=== PATIENT | female | born 1985 | race Caucasian/White ===

== ENCOUNTER 2016-12-05 23:37 | Inpatient (IN) | payer BC, OTHER ==
[2016-12-05] MEDS ORDERED: SODIUM CHLORIDE 0.9% 500 ML IV STA (23:53)
[2016-12-06] MEDS ORDERED: DILTIAZEM 5 MG/ML 5 ML VIAL IVP STA ×2 (00:06→01:11)
--- NOTE | 2016-12-06 00:06 | ED ---
General Adult HPI - General Chief complaint: Arrhythmia/Palpitations Stated complaint: heart fluttering Time Seen by Provider: 12/05/16 23:52 Source: patient, EMS, RN notes reviewed, old records reviewed Mode of arrival: EMS Limitations: no limitations - History of Present Illness Initial comments: This is a 31-year-old female palpitations. Patient feeling very anxious physical heart racing feels that she can't take a breath. Patient's very emotional, has history of transposition of arteries, history of A. fib. Patient denies fevers cough or congestion, she did feel nauseous and did vomit at work. Patient denies drugs or alcohol. Patient very emotional during history taking - Related Data Home Medications Medication Instructions Recorded Confirmed Carvedilol [Coreg] 3.125 mg PO BID 12/05/16 12/06/16 Omeprazole 20 mg PO DAILY 12/05/16 12/06/16 Allergies Allergy/AdvReac Type Severity Reaction Status Date / Time No Known Allergies Allergy Verified 12/05/16 23:53 Review of Systems ROS Statement: Those systems with pertinent positive or pertinent negative responses have been documented in the HPI. ROS Other: All systems not noted in ROS Statement are negative. Past Medical History Past Medical History: Atrial Fibrillation, Heart Failure Additional Past Medical History / Comment(s): pt had transposition of great arteries as an History of Any Multi-Drug Resistant Organisms: None Reported Additional Past Surgical History / Comment(s): open heart surg for transposition of great arteries, CARDIOVERTED FOR A- FIB Past Psychological History: No Psychological Hx Reported Smoking Status: Former smoker Past Alcohol Use History: Occasional Past Drug Use History: None Reported General Exam Limitations: no limitations General appearance: alert, in no apparent distress, anxious Head exam: Present: atraumatic, normocephalic, normal inspection Eye exam: Present: normal appearance, PERRL, EOMI. Absent: scleral icterus, conjunctival injection, periorbital swelling ENT exam: Present: normal exam, mucous membranes moist Neck exam: Present: normal inspection. Absent: tenderness, meningismus, lymphadenopathy Respiratory exam: Present: normal lung sounds bilaterally. Absent: respiratory distress, wheezes, rales, rhonchi, stridor Cardiovascular Exam: Present: normal rhythm, tachycardia, normal heart sounds. Absent: systolic murmur, diastolic murmur, rubs, gallop, clicks GI/Abdominal exam: Present: soft, normal bowel sounds. Absent: distended, tenderness, guarding, rebound, rigid Extremities exam: Present: normal inspection, full ROM, normal capillary refill. Absent: tenderness, pedal edema, joint swelling, calf tenderness Back exam: Present: normal inspection Neurological exam: Present: alert, oriented X3, CN II-XII intact Psychiatric exam: Present: normal affect, normal mood Skin exam: Present: warm, dry, intact, normal color. Absent: rash Course Vital Signs 12/05/16 23:51 Temperature 97.8 F Pulse Rate 149 H Respiratory 20 Rate Blood Pressure 119/74 O2 Sat by Pulse 96 Oximetry - Reevaluation(s) Reevaluation #1: 12/06/16 01:18 Patient she denies being in everyday drinker Reevaluation #2: 12/06/16 01:19 Patient's R is mildly improved with Cardizem, will admit for cardiology evaluation EKG Findings - EKG Comments: EKG Findings:: EKG shows sinus tachycardia rate 149, DC 114, QRS 1:30, QTC 463 Medical Decision Making - Medical Decision Making 29. ER for evaluation of heart racing, palpitations, patient's A. fib with RVR , alcoholic ketoacidosis, hypomagnesemia, patient will be admitted for rate control, patient also has elevated troponin will admit for cardiac evaluation and trending of troponin. No chest pain, no heparin at this time - Lab Data Result diagrams: 12/05/16 23:55 12/05/16 23:55 Lab Results 12/05/16 12/05/16 12/05/16 Range/Units 23:55 23:55 23:55 WBC 7.2 (3.8-10.6) k/uL RBC 4.95 (3.80-5.40) m/uL Hgb 16.0 (11.4-16.0) gm/dL Hct 49.8 H (34.0-46.0) % MCV 100.6 H (80.0-100.0) fL MCH 32.3 (25.0-35.0) pg MCHC 32.1 (31.0-37.0) g/dL RDW 14.4 (11.5-15.5) % Plt Count 286 (150-450) k/uL PT (9.0-12.0) sec INR (<1.1) APTT (22.0-30.0) sec Sodium 137 (137-145) mmol/L Potassium 3.9 (3.5-5.1) mmol/L Chloride 92 L (98-107) mmol/L Carbon Dioxide 22 (22-30) mmol/L Anion Gap 23 mmol/L BUN 10 (7-17) mg/dL Creatinine 0.80 (0.52-1.04) mg/dL Est GFR (MDRD) Af Amer >60 (>60 ml/min/1.73 sqM) Est GFR (MDRD) Non-Af >60 (>60 ml/min/1.73 sqM) Glucose 79 (74-99) mg/dL Calcium 10.0 (8.4-10.2) mg/dL Phosphorus 4.5 (2.5-4.5) mg/dL Magnesium 1.3 L (1.6-2.3) mg/dL Total Bilirubin 5.5 H (0.2-1.3) mg/dL AST 438 H (14-36) U/L ALT 185 H (9-52) U/L Alkaline Phosphatase 189 H (38-126) U/L Total Creatine Kinase 47 (30-135) U/L CK-MB (CK-2) 2.3 (0.0-2.4) ng/mL CK-MB (CK-2) Rel Index 4.9 Troponin I 0.049 H* (0.000-0.034) ng/mL Total Protein 8.0 (6.3-8.2) g/dL Albumin 4.8 (3.5-5.0) g/dL Serum Alcohol mg/dL 12/05/16 12/06/16 Range/Units 23:55 00:30 WBC (3.8-10.6) k/uL RBC (3.80-5.40) m/uL Hgb (11.4-16.0) gm/dL Hct (34.0-46.0) % MCV (80.0-100.0) fL MCH (25.0-35.0) pg MCHC (31.0-37.0) g/dL RDW (11.5-15.5) % Plt Count (150-450) k/uL PT 14.4 H (9.0-12.0) sec INR 1.5 (<1.1) APTT 25.6 (22.0-30.0) sec Sodium (137-145) mmol/L Potassium (3.5-5.1) mmol/L Chloride (98-107) mmol/L Carbon Dioxide (22-30) mmol/L Anion Gap mmol/L BUN (7-17) mg/dL Creatinine (0.52-1.04) mg/dL Est GFR (MDRD) Af Amer (>60 ml/min/1.73 sqM) Est GFR (MDRD) Non-Af (>60 ml/min/1.73 sqM) Glucose (74-99) mg/dL Calcium (8.4-10.2) mg/dL Phosphorus (2.5-4.5) mg/dL Magnesium (1.6-2.3) mg/dL Total Bilirubin (0.2-1.3) mg/dL AST (14-36) U/L ALT (9-52) U/L Alkaline Phosphatase (38-126) U/L Total Creatine Kinase (30-135) U/L CK-MB (CK-2) (0.0-2.4) ng/mL CK-MB (CK-2) Rel Index Troponin I (0.000-0.034) ng/mL Total Protein (6.3-8.2) g/dL Albumin (3.5-5.0) g/dL Serum Alcohol 112 mg/dL Critical Care Time Critical Care Time: Yes Total Critical Care Time: 31 Disposition Clinical Impression: Atrial fibrillation, Tachycardia, Palpitations, Alcoholic ketoacidosis, Dehydration, Alcohol intoxication, Hypomagnesemia Disposition: ADMITTED IP TO THIS [facility] Condition: Fair Referrals: Jocy Matute DO [Primary Care Provider] - 1-2 days
[2016-12-06] MEDS ORDERED: LORazepam 2 MG/ML SYRINGE IV STA (00:08)
[2016-12-06 00:33] LABS: ALT 185 U/L (9-52); AST 438 U/L (14-36); Alkaline Phosphatase 189 U/L (38-126); Anion Gap 23 mmol/L; Blood Urea Nitrogen 10 mg/dL (7-17); Carbon Dioxide 22 mmol/L (22-30); Chloride 92 mmol/L (98-107); Glucose 79 mg/dL (74-99); Magnesium 1.3 mg/dL (1.6-2.3); Non-African American GFR(MDRD) >60 (>60 ml/min/1.73 sqM); Phosphorous 4.5 mg/dL (2.5-4.5); Potassium 3.9 mmol/L (3.5-5.1); Sodium 137 mmol/L (137-145); Total Bilirubin 5.5 mg/dL (0.2-1.3)
[2016-12-06 00:34] LABS: INR 1.5 (<1.1); Partial Thromboplastin Time 25.6 sec (22.0-30.0); Prothrombin Time 14.4 sec (9.0-12.0)
[2016-12-06 00:50] LABS: Aty Lym Flag Slight; CH 33.5; CHCM 33.4; HCT 49.8 % (34.0-46.0); HDW 2.31; MCH 32.3 pg (25.0-35.0); MCHC 32.1 g/dL (31.0-37.0); MCV 100.6 fL (80.0-100.0); Macrocytosis Slight; RBC 4.95 m/uL (3.80-5.40); RDW 14.4 % (11.5-15.5); WBC 7.2 k/uL (3.8-10.6)
[2016-12-06 00:52] LABS: Creatine Kinase MB 2.3 ng/mL (0.0-2.4)
[2016-12-06 01:04] LABS: Troponin I 0.049 ng/mL (0.000-0.034)
[2016-12-06] MEDS ORDERED: SODIUM CHLORIDE 0.9% 2,000 ML IV STA (01:05)
[2016-12-06] MEDS ORDERED: SODIUM CHLORIDE 0.9% 500 ML IV STA (01:05)
[2016-12-06] MEDS ORDERED: SODIUM CHLORIDE 0.9% 1,000 ML IV STA (01:05)
[2016-12-06] MEDS ORDERED: POTASSIUM BICARB-CITRIC ACID 25 MEQ TABLET.EFF PO STA (01:06)
[2016-12-06] MEDS ORDERED: DILTIAZEM 125 MG in SODIUM CHLORIDE 0.9% 100 ML IV ONE (01:11)
[2016-12-06] MEDS ORDERED: ASPIRIN 81 MG CHEW PO STA (01:16)
[2016-12-06] MEDS ORDERED: MORPHINE SULFATE 4 MG/ML SYRINGE IV PRN (01:16)
[2016-12-06] MEDS ORDERED: LORazepam 2 MG/ML SYRINGE IV PRN ×2 (01:18)
[2016-12-06] MEDS ORDERED: THIAMINE 100 MG/ML 2 ML VIAL IM STA (01:18)
[2016-12-06] MEDS ORDERED: SODIUM CHLORIDE 0.9% 1,000 ML IV SCH (01:30)
[2016-12-06 01:35] LABS: Add Differential Manual Differential
[2016-12-06] MEDS: MAGNESIUM SULFATE-D5W PMX 1 GM in DEXTROSE/WATER 1 100ML.BAG IVPB SCH ×4 (01:36→05:50)
[2016-12-06 01:38] LABS: Nucleated Red Blood Cells 0 /100 WBC (0-0); Total Cells Counted 100
[2016-12-06 01:39] LABS: Large Platelets Present
[2016-12-06 01:40] LABS: Manual Review Performed
[2016-12-06] MEDS: LORazepam 2 MG/ML SYRINGE IV PRN ×7 (03:03→21:49)
[2016-12-06 03:27] LABS: Acetaminophen <10.0 ug/mL; Salicylate <1.0 mg/dL
[2016-12-06 04:23] VITALS: BMI 20.9
[2016-12-06 07:03] LABS: Creatine Kinase MB 1.8 ng/mL (0.0-2.4)
[2016-12-06] MEDS: guaiFENesin 600 MG TABLET.ER PO SCH ×2 (07:07→21:37)
[2016-12-06] MEDS: LORATADINE 10 MG TAB PO SCH (07:08)
[2016-12-06 07:09] LABS: Troponin I 0.058 ng/mL (0.000-0.034)
--- NOTE | 2016-12-06 09:07 | P.CRDCN ---
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 Patient states that she has noticed these palpitations for the past couple of days. She has a known history of atrial fibrillation with prior cardioversion, she used to follow here with Dr. Colón in the office, she now follows with a congenital property management specialist at [facility]. 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 On presentation here EKG showed atrial fibrillation with a rapid ventricular response, right bundle branch block pattern. There was no chest x-ray performed. CBC normal. Potassium 3.9, BUN 10, creatinine 0.8. Lactic acid 3.4, 2.3 this morning. Magnesium level on admission 1.3, 2.7 this morning. Total bilirubin 5.5, AST 438, ALT 185, alk phos 189. Troponins 0.049, 0.058. TSH level 4.6. Serum alcohol 112. Blood pressure 110/70, heart rate in the 1 teens. Patient is currently on IV Cardizem at 5 mg per hour. She also received magnesium replacement as well as IV fluid. She denies any palpitations this morning. Past Medical History Past Medical History: Atrial Fibrillation, Heart Failure Additional Past Medical History / Comment(s): pt had transposition of great arteries as an History of Any Multi-Drug Resistant Organisms: None Reported Additional Past Surgical History / Comment(s): open heart surg for transposition of great arteries, CARDIOVERTED FOR A- FIB Past Psychological History: No Psychological Hx Reported Smoking Status: Former smoker Past Alcohol Use History: Occasional Past Drug Use History: None Reported - Past Family History Mother Family Medical History: No Reported History Father Family Medical History: No Reported History Medications and Allergies Home Medications Medication Instructions Recorded Confirmed Type Carvedilol [Coreg] 1.56 mg PO BID 12/05/16 12/06/16 History Omeprazole 20 mg PO DAILY 12/05/16 12/06/16 History Escitalopram [Lexapro] 5 mg PO DAILY 12/06/16 12/06/16 History Allergies Allergy/AdvReac Type Severity Reaction Status Date / Time No Known Allergies Allergy Verified 12/06/16 11:45 Physical Exam Vitals: Vital Signs Temp Pulse Pulse Resp BP BP Pulse Ox 12/06/16 05:24 111 H 18 110/78 100 12/06/16 03:52 97.5 F L 112 H 18 112/76 96 Intake and Output 12/05/16 12/06/16 12/06/16 21:59 06:59 14:59 Intake Total Balance Intake: Intake, IV Titration Amount Magnesium Sulfate-D5w Pmx 1 gm In Dextrose/Water 1 100ml.bag @ 100 mls/hr IVPB Q1H MICHAEL Rx#: [id number] Sodium Chloride 0.9% 1, 000 ml @ 100 mls/hr IV . Q10H MICHAEL Rx#:[id number] Sodium Chloride 0.9% 500 ml @ 999 mls/hr IV .Q31M STA Rx#:[id number] Other: # Voids Weight PHYSICAL EXAMINATION: HEENT: Head is atraumatic, normocephalic. Pupils equal, round. Neck is supple. There is elevated jugular venous pressure. HEART EXAMINATION: Heart S1 and S2 irregular irregular CHEST EXAMINATION: Lungs reveal decreased air exchange with expiratory wheezing and conchis rales ABDOMEN: Soft, liver is enlarged 3 fingers below costal margin, nontender. Bowel sounds are heard. EXTREMITIES: 2+ peripheral pulses with no evidence of peripheral edema and no calf tenderness noted. NEUROLOGIC patient is awake, alert and oriented -3. . Results 12/05/16 23:55 12/05/16 23:55 Cardiac Enzymes 12/06/16 Range/Units 06:00 CK-MB (CK-2) 1.8 (0.0-2.4) ng/mL Troponin I 0.058 H* (0.000-0.034) ng/mL Current Medications Generic Name Dose Route Start Last Admin Trade Name Freq PRN Reason Stop Dose Admin Aspirin 325 mg 12/07/16 09:00 Aspirin PO DAILY MICHAEL Guaifenesin 600 mg 12/06/16 09:00 12/06/16 07:07 Mucinex PO 600 mg Q12HR MICHAEL Administration Sodium Chloride 1,000 mls @ 100 mls/hr 12/06/16 01:05 12/06/16 04:46 Saline 0.9% IV 12/06/16 11:04 Not Given .Q10H STA Diltiazem HCl 125 mg/ Sodium 125 mls @ 5 mls/hr 12/06/16 01:11 12/06/16 01:49 Chloride IV 12/07/16 01:10 5 mg/hr .Q24H ONE 5 mls/hr 5 MG/HR Administration Sodium Chloride 1,000 mls @ 100 mls/hr 12/06/16 01:30 12/06/16 05:50 Saline 0.9% IV 100 mls/hr .Q10H MICHAEL Administration Loratadine 10 mg 12/06/16 09:00 12/06/16 07:08 Claritin PO 10 mg DAILY MICHAEL Administration Lorazepam 1 mg 12/06/16 01:18 12/06/16 07:30 Ativan IV 1 mg Q2HR PRN Administration CIWA 8 or 9 Lorazepam 1 mg 12/06/16 01:18 Ativan IV Q1HR PRN CIWA 10 to 15 Lorazepam 2 mg 12/06/16 01:18 Ativan IV Q1HR PRN CIWA 16 or higher Morphine Sulfate 4 mg 12/06/16 01:16 Morphine Sulfate (Inj) IV Q4HR PRN Chest Pain Thiamine HCl 100 mg 12/06/16 17:00 Vitamin B-1 PO BID@1200,1700 MICHAEL Intake and Output 12/05/16 12/06/16 12/06/16 21:59 06:59 14:59 Intake Total Balance Intake: Intake, IV Titration Amount Magnesium Sulfate-D5w Pmx 1 gm In Dextrose/Water 1 100ml.bag @ 100 mls/hr IVPB Q1H MICHAEL Rx#: [id number] Sodium Chloride 0.9% 1, 000 ml @ 100 mls/hr IV . Q10H MICHAEL Rx#:[id number] Sodium Chloride 0.9% 500 ml @ 999 mls/hr IV .Q31M STA Rx#:[id number] Other: # Voids Weight EKG Interpretations (text) EKG shows atrial fibrillation with a rapid ventricular response and right bundle branch block pattern. Assessment and Plan Plan: Assessment and plan #1 atrial fibrillation with rapid ventricular response, paroxysmal. Patient currently on IV Cardizem. 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 #7 abnormal troponins, not consistent with acute coronary syndrome, could be secondary to oxygen supply and demand mismatch from A. fib with rapid rate. #8 possible congestive cardiac failure. Plan We will attempt to receive records from [facility], we will also order an echocardiogram with Doppler study. Decrease IV fluids to KVO. Obtain a BNP level stat Obtain chest x-ray. Obtain third troponin value. Discontinue IV Cardizem and reinitiate beta carina. Further recommendations to follow. DNP note has been reviewed, I agree with a documented findings and plan of care. Patient was seen and examined.
--- NOTE | 2016-12-06 09:37 | XR ---
EXAMINATION TYPE: XR chest 2V DATE OF EXAM: 12/06/2016 9:25 AM COMPARISON: 08/20/2016 HISTORY: Shortness of breath FINDINGS: 2 views of the chest submitted. There are bilateral pleural effusions with cardiomegaly and bibasilar infiltrate. There is a diffuse interstitial pattern. IMPRESSION: 1. Correlate for CHF.
[2016-12-06] MEDS: METOPROLOL TARTRATE 25 MG TAB PO SCH ×2 (10:21→21:41)
[2016-12-06] MEDS ORDERED: ONDANSETRON 4 MG/2 ML VIAL IVP PRN (10:50)
--- NOTE | 2016-12-06 11:11 | P.HPIM ---
History of Present Illness H&P Date: 12/06/16 Chief Complaint: Heart palpitations A 31-year-old female presented to the emergency room with a chief complaint of feeling anxious heart palpitations could feel her heart racing could not take a breath. 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 Patient has a history of transposition of the arteries and follows a congenital heart specialists at the [facility]. Patient states she is scheduled to be seen in December and a follow-up visit. Has a history of atrial fibrillation with prior cardioversion. In the emergency room the 12- lead EKG showed atrial fibrillation with a rapid ventricular response of the right bundle branch block pattern. 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 History of Any Multi-Drug Resistant Organisms: None Reported Additional Past Surgical History / Comment(s): open heart surg for transposition of great arteries, CARDIOVERTED FOR A- FIB Past Psychological History: No Psychological Hx Reported Smoking Status: Former smoker Past Alcohol Use History: Occasional Past Drug Use History: None Reported - Past Family History Mother Family Medical History: No Reported History Father Family Medical History: No Reported History Medications and Allergies Home Medications Medication Instructions Recorded Confirmed Type Carvedilol [Coreg] 3.125 mg PO BID 12/05/16 12/06/16 History Omeprazole 20 mg PO DAILY 12/05/16 12/06/16 History Allergies Allergy/AdvReac Type Severity Reaction Status Date / Time No Known Allergies Allergy Verified 12/05/16 23:53 Physical Exam Vitals: Vital Signs Temp Pulse Pulse Resp BP BP Pulse Ox 12/06/16 08:15 92 L 12/06/16 08:00 96.6 F L 110 H 18 99/65 90 L 12/06/16 05:24 111 H 18 110/78 100 12/06/16 03:52 97.5 F L 112 H 18 112/76 96 Intake and Output 12/05/16 12/06/16 12/06/16 21:59 06:59 14:59 Intake Total Balance Intake: Intake, IV Titration Amount Magnesium Sulfate-D5w Pmx 1 gm In Dextrose/Water 1 100ml.bag @ 100 mls/hr IVPB Q1H MICHAEL Rx#: [id number] Sodium Chloride 0.9% 1, 000 ml @ 100 mls/hr IV . Q10H MICHAEL Rx#:[id number] Sodium Chloride 0.9% 500 ml @ 999 mls/hr IV .Q31M STA Rx#:[id number] Other: # Voids 1 Weight GENERAL APPEARANCE: 31-year-old patient is alert, oriented, in no acute distress. VITAL SIGNS: Reviewed HEENT: Head is normocephalic and atraumatic. Pupils are equal and reactive. The nares are patent. Oropharynx is clear without lesions. NECK: Supple without lymphadenopathy. Traches midline. HEART: S1, S2. Irregular monitor atrial fibrillation LUNGS: No crackles or wheezes are heard. Adequate air movement ABDOMEN: Soft, nontender, nondistended with good bowel sounds. No peritoneal signs. No palpable organomegaly or masses. EXTREMITIES: Normal skin color and turgor. No cyanosis, rash, ulceration, clubbing or edema. Radial pedal pulses are 2/4 bilaterally. NEUROLOGICAL: No focal deficits. Strength and sensation are grossly intact. Results CBC & Chem 7: 12/05/16 23:55 12/05/16 23:55 Labs: Abnormal Lab Results - Last 24 Hours (Table) 12/06/16 12/06/16 12/06/16 Range/Units 01:55 06:00 06:00 Plasma Lactic Acid Andrew 3.4 H* 2.3 H* (0.7-2.0) mmol/L Magnesium (1.6-2.3) mg/dL Troponin I 0.058 H* (0.000-0.034) ng/mL 12/06/16 Range/Units 06:00 Plasma Lactic Acid Andrew (0.7-2.0) mmol/L Magnesium 2.7 H (1.6-2.3) mg/dL Troponin I (0.000-0.034) ng/mL Assessment and Plan Plan: Impression Present on admission shortness breath heart palpitation suspect due to atrial fibrillation with a rapid ventricular response History of paroxysmal atrial fibrillation 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 abnormal troponins, not consistent with acute coronary syndrome, could be secondary to oxygen supply and demand mismatch from A. fib with rapid rate. Plan Continue CIWA protocol using Ativan Continue recommendations by cardiology Repeat electrolytes keep in a therapeutic range DVT and GI prophylaxis Obtain records from the [facility] Cardiology recommends echocardiogram Follow-up chest x-ray Cardiology recommends IV Cardizem to be stopped and reinitiate the beta carina Further recommendations pending The above dictated assessment and findings were discussed with dr eckert. Impression and the plan of care have been dictated as directed. Jayleen Brito nurse practitioner acting as a scribe for dr eckert
[2016-12-06] MEDS: SODIUM CHLORIDE 0.9% 1,000 ML IV SCH (11:41)
[2016-12-06] MEDS: FAMOTIDINE 20 MG TAB PO SCH ×2 (12:19→21:38)
[2016-12-06 12:44] LABS: Troponin I 0.037 ng/mL (0.000-0.034)
--- NOTE | 2016-12-06 12:50 | P.PN ---
Progress Note - Text ThIs an addendum to the cardiology consultation dictated, chest x-ray was reviewed and reveals congestive cardiac failure. We will treat the patient with 40 mg of IV Lasix every 12 hourly. Currently patient is in sinus tachycardia. Recommend GI consult. DNP note has been reviewed, I agree with a documented findings and plan of care. Patient was seen and examined.
[2016-12-06 14:52] LABS: Appearance,Urine Cloudy (Clear); Bacteria,Urine Many /hpf; Bilirubin,Urine 1+ (Negative); Glucose,Urine (UA) Negative (Negative); Ketones,Urine Negative (Negative); Leukocyte Esterase,Urine Small (Negative); Mucus,Urine Rare /hpf; Nitrite,Urine Negative (Negative); Particle Count 7128; Protein,Urine Trace (Negative); RBC,Urine 2 /hpf (0-5); Specific Gravity,Urine 1.024 (1.001-1.035); Squamous Epithelial Cell,Urine 3 /hpf (0-4); UA Billing (MACRO vs. MICRO) MICRO; WBC,Urine 12 /hpf (0-5)
--- NOTE | 2016-12-06 16:01 | US ---
EXAMINATION TYPE: US liver DATE OF EXAM: 12/06/2016 3:18 PM COMPARISON: US on PACS Limited abdomen August 20, 2016 CLINICAL HISTORY: elevated liver enzymes and bili. Patient stated had Heart Surgery as for Tra nsposition of Great Vessels; taking heart medications EXAM MEASUREMENTS: Liver Length: 16.1 cm Gallbladder Wall: 0.5cm (4 hours fasting) CBD: 0.4 cm Right Kidney: 11.1 x 4.8 x 3.9 cm TECHNOLOGIST IMPRESSION: Pancreas: limitedly seen due to overlying bowel gas Liver: no masses seen Gallbladder: thickened wall, yet, may be due to non-fasting state at 4hours post dairy and fruit int marcia. Evidence for sonographic García's sign: No CBD: wnl Right Kidney: wnl Visualized pancreas shows no obvious mass but is suboptimally evaluated due to shadowing from overlyi ng bowel gas. Visualized liver is heterogeneously hyperechoic in appearance without evidence of intra hepatic ductal dilatation. The evaluation for focal masses is limited due to the heterogeneity. Heter ogeneity appears new or more prominent versus prior. Common bile duct is within normal limits. Gallbl adder is seen without shadowing intraluminal gallstones or pericholecystic fluid. Gallbladder wall is concentrically mildly thickened up to 5 mm but is somewhat suboptimally distended. IMPRESSION: New heterogeneity of liver could reflect mild diffuse fatty infiltration or developing he patocellular disease. Imaging guided random biopsy for tissue analysis can be performed if desired.
[2016-12-06] MEDS: THIAMINE 100 MG TAB PO SCH (17:42)
[2016-12-06] MEDS: FUROSEMIDE 10 MG/ML 4 ML VIAL IV SCH (17:55)
--- NOTE | 2016-12-07 00:21 | P.CONS ---
History of Present Illness - Reason for Consult Consult date: 12/06/16 - History of Present Illness The patient is a 31-year-old female who presented to the emergency room with the complaint of feeling anxious with heart palpitations and could not take a breath. She states that this was going on over several days. 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 We are asked to see her regarding elevated liver enzymes. The patient has history of transposition of the arteries and follows a congenital affiliate marketing specialist at the [facility]. She is scheduled for a F/U visit in December. Has a history of atrial fibrillation with prior cardioversion. In the emergency room the 12-lead EKG showed atrial fibrillation with a rapid ventricular response. She was started on IV Cardizem drip. Review of Systems ROS reveals no other CP symptoms, GI, Neurologic, , endocrine muskuloskeletal or psychiatric complaints. Past Medical History Past Medical History: Atrial Fibrillation, Heart Failure Additional Past Medical History / Comment(s): pt had transposition of great arteries as an History of Any Multi-Drug Resistant Organisms: None Reported Additional Past Surgical History / Comment(s): open heart surg for transposition of great arteries, CARDIOVERTED FOR A- FIB Past Psychological History: No Psychological Hx Reported Smoking Status: Former smoker Past Alcohol Use History: Occasional Past Drug Use History: None Reported - Past Family History Mother Family Medical History: No Reported History Father Family Medical History: No Reported History Medications and Allergies Home Medications Medication Instructions Recorded Confirmed Type Carvedilol [Coreg] 1.56 mg PO BID 12/05/16 12/06/16 History Omeprazole 20 mg PO DAILY 12/05/16 12/06/16 History Escitalopram [Lexapro] 5 mg PO DAILY 12/06/16 12/06/16 History Allergies Allergy/AdvReac Type Severity Reaction Status Date / Time No Known Allergies Allergy Verified 12/06/16 11:45 Physical Exam Vitals: Vital Signs Temp Pulse Pulse Resp BP BP Pulse Ox 12/06/16 16:00 116 H 16 12/06/16 15:37 97.0 F L 116 H 16 113/66 94 L 12/06/16 12:00 97.0 F L 112 H 18 106/71 94 L 12/06/16 08:15 92 L 12/06/16 08:00 96.6 F L 110 H 18 99/65 90 L 12/06/16 05:24 111 H 18 110/78 100 12/06/16 03:52 97.5 F L 112 H 18 112/76 96 Intake and Output 12/06/16 12/06/16 12/06/16 06:59 14:59 22:59 Intake Total Output Total 300 Balance -300 Intake: Intake, IV Titration Amount Magnesium Sulfate-D5w Pmx 1 gm In Dextrose/Water 1 100ml.bag @ 100 mls/hr IVPB Q1H [facility] Rx#: [id number] Sodium Chloride 0.9% 1, 000 ml @ 100 mls/hr IV . Q10H [facility] Rx#:[id number] Sodium Chloride 0.9% 500 ml @ 999 mls/hr IV .Q31M [facility] Rx#:[id number] Output: Urine 300 Other: Voiding Method Toilet Toilet # Voids 1 1 Weight 56.1 kg 56.1 kg Patient Weight 12/07/16 06:59 Weight 56.1 kg General appearance: alert, in no apparent distress Head exam: atraumatic, normocephalic, normal inspection. Conjunctivae pink, sclerae icteric Neck exam: normal inspection, full ROM. no tenderness, meningismus, lymphadenopathy Respiratory exam: normal lung sounds bilaterally. no respiratory distress, wheezes, rales, rhonchi, stridor Cardiovascular Exam: regular rate, normal rhythm, normal heart sounds. no systolic murmur, diastolic murmur, rubs, gallop, clicks GI/Abdominal exam: soft, mild tenderness (diffuse), normal bowel sounds. no distention, guarding, rebound, rigidity Back exam: no CVA tenderness (R), CVA tenderness (L) Neurological exam: alert, oriented X3, CN II-XII intact Skin exam: warm, dry, intact, normal color. no rash Results CBC & Chem 7: 12/05/16 23:55 12/05/16 23:55 Labs: Abnormal Lab Results - Last 24 Hours (Table) 12/06/16 12/06/16 12/06/16 Range/Units 01:55 06:00 06:00 Plasma Lactic Acid Andrew 3.4 H* 2.3 H* (0.7-2.0) mmol/L Magnesium (1.6-2.3) mg/dL Troponin I 0.058 H* (0.000-0.034) ng/mL Urine Appearance (Clear) Urine Protein (Negative) Urine Blood (Negative) Urine Bilirubin (Negative) Ur Leukocyte Esterase (Negative) Urine WBC (0-5) /hpf Urine Bacteria (None) /hpf Urine Mucus (None) /hpf U Benzodiazepines Scrn (NotDetected) 12/06/16 12/06/16 12/06/16 Range/Units 06:00 11:36 14:20 Plasma Lactic Acid Andrew (0.7-2.0) mmol/L Magnesium 2.7 H (1.6-2.3) mg/dL Troponin I 0.037 H* (0.000-0.034) ng/mL Urine Appearance Cloudy H (Clear) Urine Protein Trace H (Negative) Urine Blood Small H (Negative) Urine Bilirubin 1+ H (Negative) Ur Leukocyte Esterase Small H (Negative) Urine WBC 12 H (0-5) /hpf Urine Bacteria Many H (None) /hpf Urine Mucus Rare H (None) /hpf U Benzodiazepines Scrn Detected H (NotDetected) Assessment and Plan Plan: 31-year old female with picture consistent with alcoholic liver disease. Acute alcoholic hepatitis can account for her presentation. An underlying chronic liver disease and hypoperfusion secondary to her arrythmia can be at play too. Will continue to monitor closely after hemodynamic stabilization and off alcohol. Did not schedule for a liver biopsy at this time.
[2016-12-07 06:47] LABS: Basophils # (A) 0.1 k/uL (0-0.2); Basophils % (A) 1 %; CH 33.2; CHCM 32.5; Eosinophils % (A) 0 %; HCT 44.8 % (34.0-46.0); HDW 2.24; HGB 14.5 gm/dL (11.4-16.0); Luc # (Auto) 0.31; Luc % (Auto) 4; Lymphocytes # (A) 1.4 k/uL (1.0-4.8); Lymphocytes % (A) 17 %; MCH 33.2 pg (25.0-35.0); MCHC 32.4 g/dL (31.0-37.0); MCV 102.5 fL (80.0-100.0); Macrocytosis Slight; Mean Platelet Volume 8.3; Monocytes # (A) 0.5 k/uL (0-1.0); Monocytes % (A) 7 %; Neutrophils # (A) 5.7 k/uL (1.3-7.7); Neutrophils % (A) 71 %; RBC 4.37 m/uL (3.80-5.40); RDW 14.4 % (11.5-15.5); WBC (Perox) 8.29
[2016-12-07 07:11] LABS: ALT 145 U/L (9-52); AST 383 U/L (14-36); Alkaline Phosphatase 142 U/L (38-126); Anion Gap 16 mmol/L; Blood Urea Nitrogen 14 mg/dL (7-17); Calcium 8.8 mg/dL (8.4-10.2); Carbon Dioxide 21 mmol/L (22-30); Chloride 95 mmol/L (98-107); Cholesterol 78 mg/dL (<200); Glucose 55 mg/dL (74-99); HDL Cholesterol 50 mg/dL (40-60); Magnesium 1.6 mg/dL (1.6-2.3); Non-African American GFR(MDRD) >60 (>60 ml/min/1.73 sqM); Potassium 4.2 mmol/L (3.5-5.1); Sodium 132 mmol/L (137-145); Total Bilirubin 9.7 mg/dL (0.2-1.3); Total Protein 6.2 g/dL (6.3-8.2); Triglycerides 110 mg/dL (<150)
[2016-12-07] MEDS: LORATADINE 10 MG TAB PO SCH (08:00)
[2016-12-07] MEDS: FUROSEMIDE 10 MG/ML 4 ML VIAL IV SCH ×2 (08:00→19:46)
[2016-12-07] MEDS: FAMOTIDINE 20 MG TAB PO SCH ×2 (08:01→19:46)
[2016-12-07] MEDS: METOPROLOL TARTRATE 25 MG TAB PO SCH ×2 (08:01→19:45)
[2016-12-07] MEDS: guaiFENesin 600 MG TABLET.ER PO SCH ×2 (08:01→19:46)
[2016-12-07] MEDS ORDERED: ASPIRIN 325 MG TAB PO SCH (09:00)
--- NOTE | 2016-12-07 10:28 | ECHOF ---
Referral Reason:elevTrop MEASUREMENTS -------- HEIGHT: 160.0 cm WEIGHT: 55.3 kg BP: 104/70 RVIDd: 3.4 cm (< 3.3) IVSd: 1.0 cm (0.6 - 1.1) LVIDd: 4.5 cm (3.9 - 5.3) LVPWd: 1.0 cm (0.6 - 1.1) IVSs: 1.2 cm LVIDs: 3.7 cm LVPWs: 1.5 cm LA Diam: 2.8 cm (2.7 - 3.8) Ao Diam: 3.4 cm (2.0 - 3.7) AV Cusp: 2.0 cm (1.5 - 2.6) MV EXCURSION: 13.883 mm (> 18.000) MV EF SLOPE: 64 mm/s (70 - 150) EPSS: 1.1 cm MV E Raheel: 0.52 m/s MV DecT: 97 ms MV A Raheel: 0.39 m/s MV E/A Ratio: 1.31 AR PHT: 284 ms RAP: 15.00 mmHg RVSP: 82.36 mmHg FINDINGS -------- Resting tachycardia (HR>100bpm). This was a technically difficult study with suboptimal views. Paient had trnsposition of great vessels repair The left ventricular size is normal. Left ventricular wall thickness is normal. Overall left ventricular systolic function is moderate-severely impaired with, an EF between 30 - 35 %. The right ventricle is moderate to severely enlarged. The left atrium is normal in size. The right atrium is normal in size. The aortic valve was not well visualized. There is rnae-mv-nybfkmca aortic regurgitation. Normal appearing mitral valve. Lorl-yt-yjnzmyzb tricuspid regurgitation present. There is severe pulmonary hypertension. The right ventricular systolic pressure, as measured by Doppler, is 82.36mmHg. Trace/mild (physiologic) pulmonic regurgitation. The aortic root size is normal. The inferior vena cava is dilated with poor inspiratory collapse which is consistent with estimated right atrial pressure of 15 mmHg. There is no pericardial effusion. CONCLUSIONS -------- 1. Resting tachycardia (HR>100bpm). 2. There is ivhk-ov-mskjxmro aortic regurgitation. 3. Normal appearing mitral valve. 4. Hjzq-fg-wdpusspy tricuspid regurgitation present. 5. There is severe pulmonary hypertension. 6. The right ventricular systolic pressure, as measured by Doppler, is 82.36mmHg. 7. Trace/mild (physiologic) pulmonic regurgitation. 8. The aortic root size is normal. 9. The inferior vena cava is dilated with poor inspiratory collapse which is consistent with estimated right atrial pressure of 15 mmHg. 10. There is no pericardial effusion. 11. This was a technically difficult study with suboptimal views. 12. Paient had trnsposition of great vessels repair 13. The left ventricular size is normal. 14. Left ventricular wall thickness is normal. 15. Overall left ventricular systolic function is moderate-severely impaired with, an EF between 30 - 35 %. 16. The right ventricle is moderate to severely enlarged. 17. The left atrium is normal in size. 18. The aortic valve was not well visualized. QUALITY ASSURANCE INSPECTOR: Susan Gerber RDCS
[2016-12-07] MEDS: SODIUM CHLORIDE 0.9% 1,000 ML IV SCH (11:23)
[2016-12-07] MEDS: THIAMINE 100 MG TAB PO SCH ×2 (11:52→17:20)
--- NOTE | 2016-12-07 14:21 | P.PN ---
Subjective Patient presented with shortness of breath, heart palpitations and anxiety. She is found to be in atrial fibrillation with rapid ventricular response. Required IV Cardizem drip. Cardizem drip was discontinued yesterday and was started on metoprolol. Heart rate is in the low 100s. Patient reports she is no other having palpitations. Her breathing is doing better. She denies any chest pain. Denies any nausea or vomiting. Had 2 small formed bowel movements this morning. Denies any difficulty with urinating. Objective - Vital Signs Vital signs: Vital Signs Temp 96.8 F L 12/07/16 11:53 Pulse 108 H 12/07/16 12:00 Resp 16 12/07/16 12:00 BP 106/63 12/07/16 11:53 Pulse Ox 93 L 12/07/16 11:53 Intake & Output 12/06/16 12/07/16 12/07/16 18:59 06:59 18:59 Intake Total 50 Output Total 100 200 400 Balance -100 -200 -350 Weight 56.1 kg 55.6 kg 55.6 kg Intake: Intake, IV Titration 50 Amount cefTRIAXone 1,000 mg In 50 Sodium Chloride 0.9% 50 ml @ 100 mls/hr IVPB Q24HR [facility] Rx#:[id number] Output: Urine 100 200 400 Other: Voiding Method Toilet Toilet # Voids 1 2 2 - Exam Head normocephalic. Scleral icterus Neck supple Lungs clear to auscultation bilaterally no wheezing or crackles Heart irregular Abdomen is soft nontender nondistended positive bowel sounds no hepatosplenomegaly Extremities no edema Neuro alert and orientated to 3 Skin jaundice - Labs CBC & Chem 7: 12/07/16 06:15 12/07/16 06:13 Labs: Abnormal Lab Results - Last 24 Hours (Table) 12/06/16 12/07/16 12/07/16 Range/Units 14:20 06:13 06:15 MCV 102.5 H (80.0-100.0) fL Sodium 132 L (137-145) mmol/L Chloride 95 L (98-107) mmol/L Carbon Dioxide 21 L (22-30) mmol/L Glucose 55 L (74-99) mg/dL Total Bilirubin 9.7 H (0.2-1.3) mg/dL AST 383 H (14-36) U/L ALT 145 H (9-52) U/L Alkaline Phosphatase 142 H (38-126) U/L Total Protein 6.2 L (6.3-8.2) g/dL Urine Appearance Cloudy H (Clear) Urine Protein Trace H (Negative) Urine Blood Small H (Negative) Urine Bilirubin 1+ H (Negative) Ur Leukocyte Esterase Small H (Negative) Urine WBC 12 H (0-5) /hpf Urine Bacteria Many H (None) /hpf Urine Mucus Rare H (None) /hpf U Benzodiazepines Scrn Detected H (NotDetected) Microbiology - Last 24 Hours (Table) 12/06/16 14:20 Urine Culture - Preliminary Urine,Voided Assessment and Plan Plan: 1. Atrial fibrillation with rapid ventricular response: Currently on metoprolol. Cardiology is following. We'll await cardiology recommendations regarding anticoagulation 2. History of paroxysmal atrial fibrillation 3. History of transposition of great arteries as an . Status post surgery. Follows at [facility] 4. Acute alcohol intoxication. Alcohol level 112. Continue with the CIWA protocol with Ativan. Continue thiamine and multivitamin. 5. Elevated troponins: Not consistent with acute coronary syndrome. Likely secondary to an oxygen supply and demand mismatch from the atrophic relation with rapid ventricular response. Evaluated by cardiology 6. Acute alcoholic hepatitis with chronic liver disease and possibly hypoperfusion secondary to her arrhythmia. GI service is following. Liver ultrasound shows new heterogeneity of the liver could reflect mild diffuse fatty infiltration or developing hepatocellular disease. Continue to monitor LFTs 7. UTI: Send urine for culture. Start Rocephin 1 g daily 8. Hypomagnesemia: Patient receiving magnesium supplement 9. Acute systolic CHF exacerbation: Echo shows an EF of 30-35%. Patient was started on IV Lasix 40 mg every 12 hours by cardiology 10. Severe pulmonary hypertension noted on echo
[2016-12-07] MEDS ORDERED: MAGNESIUM SULFATE-D5W PMX 1 GM in DEXTROSE/WATER 1 100ML.BAG IVPB ONE (15:00)
[2016-12-07] MEDS: LORazepam 2 MG/ML SYRINGE IV PRN (15:19)
--- NOTE | 2016-12-07 15:51 | P.DS ---
Providers Date of admission: 12/06/16 01:16 Expected date of discharge: 12/07/16 Attending physician: Johanna Felton Consults: 12/06/16 12:51 Consult Physician Urgent Consulting Provider: Shelli Velazco Consult Reason/Comments: abn Liver enzymes Do you want consulting provider notified?: Yes cardiology Primary care physician: Jocy Matute [facility] Course: Discharge diagnosis 1. Acute hepatitis possibly secondary to cardiogenic liver cirrhosis or Acute alcoholic hepatitis with chronic liver disease and possibly hypoperfusion secondary to her arrhythmia. GI service is following. Liver ultrasound shows new heterogeneity of the liver could reflect mild diffuse fatty infiltration or developing hepatocellular disease. Continue to monitor LFTs 2.. Atrial fibrillation with rapid ventricular response: Currently on metoprolol. Cardiology is following. We'll await cardiology recommendations regarding anticoagulation. History of paroxysmal atrial fibrillation 3. History of transposition of great arteries as an infant. Status post surgery. Follows at [facility] 4. Acute alcohol intoxication. Alcohol level 112. Continue with the CIWA protocol with Ativan. Continue thiamine and multivitamin. 5. Elevated troponins: Not consistent with acute coronary syndrome. Likely secondary to an oxygen supply and demand mismatch from the atrophic relation with rapid ventricular response. Evaluated by cardiology 6. UTI: Send urine for culture. Start Rocephin 1 g daily 7. Hypomagnesemia: Patient receiving magnesium supplement 8. Acute systolic CHF exacerbation: Echo shows an EF of 30-35%. Patient was started on IV Lasix 40 mg every 12 hours by cardiology 9. 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 She follows up with specialist out of [facility]. Patient presents to the emergency room with complaints of feeling anxious, heart palpitations and shortness of breath. She was found have evidence of atrial fibrillation with rapid ventricular response. Started on a Cardizem drip. Heart rate did show improvement and then cardiology added metoprolol 25 mg twice a day and discontinued the Cardizem drip. Patient also was found to have evidence of acute hepatitis. Total bilirubin was 5.5 and is now up to 9.7. On admission ALT was 185 and AST 438. Alk phos was 189. GI service was consulted. Liver ultrasound shows new heterogenicity of the liver likely related to diffuse fatty infiltration or developing hepatocellular disease. Patient did have evidence of alcohol intoxication. No evidence of withdrawal. She was on the CIWA protocol with Ativan, thiamine and multivitamin. Her acute hepatitis could be multifactorial possibly related to cardiogenic liver cirrhosis as well as acute alcoholic liver disease. Her cardiac arrhythmias, speech and hypoperfusion of the liver. Cardiology evaluated patient today and due to her worsening numbers and overall condition they recommended patient be transferred to tertiary care center, such as [facility]. 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 Ean HARTLEY's is out of [facility]. Patient also is having evidence of CHF exacerbation was placed on IV Lasix. Echo showed an EF of 30-35% also there is evidence of severe pulmonary hypertension. Patient's overall condition is very poor and guarded. She requires a higher level of care due to her previous cardiac history and possible cardiogenic liver cirrhosis. Patient will be discharged to [facility] when bed is available. Patient Condition at Discharge: Stable Plan - Discharge Summary New Discharge Prescriptions: Carvedilol [Coreg] 1.56 mg PO BID #60 tab Metoprolol Tartrate [Lopressor] 25 mg PO BID #60 tab Discharge Medication List Omeprazole 20 mg PO DAILY 12/05/16 [History] Escitalopram [Lexapro] 5 mg PO DAILY 12/06/16 [History] Aspirin 325 mg PO DAILY tab 12/07/16 [Rx] Carvedilol [Coreg] 1.56 mg PO BID #60 tab 12/07/16 [Rx] Metoprolol Tartrate [Lopressor] 25 mg PO BID #60 tab 12/07/16 [Rx] Thiamine [Vitamin B-1] 100 mg PO BID@1200,1700 tab 12/07/16 [Rx] cefTRIAXone [Rocephin] 1,000 mg IVPB Q24HR vial 12/07/16 [Rx] Follow up Appointment(s)/Referral(s): Jocy Matute DO [Primary Care Provider] - 1 Week Activity/Diet/Wound Care/Special Instructions: ok to d/c to [facility] when bed available Discharge Disposition: OTHER INSTITUTION NOT DEFINED
[2016-12-07 16:15] VITALS: RESP 18
[2016-12-07 16:59] LABS: Hepatitis B Surface Ag Index 0.06
[2016-12-07 17:05] LABS: Hepatitis B Core IgM Index 0.04
[2016-12-07 17:17] LABS: Hepatitis C Virus IgG Ab Negative (Negative)
[2016-12-07 21:12] VITALS: BP 131/72; PULSE 76; TEMP 97.3
--- NOTE | 2016-12-07 22:23 | PN ---
DATE OF SERVICE: 12/07/2016 The patient is status post surgery for transposition of the great arteries. Patient was admitted with palpitations. Patient was initially in atrial fibrillation, now she is in sinus tachycardia. Patient also has significantly elevated liver enzymes and bilirubin is up to 9.7. Patient's echocardiogram reveals severely impaired left ventricular systolic function. Right ventricular is severely enlarged. There is evidence of pulmonary hypertension and elevated right atrial pressure. Patient remains tachycardic. HEART: S1 and S2 normal. LUNGS: Reveal a few basal lungs reveal scattered rhonchi. IMPRESSION: 1. This patient is status post corrected transposition of the great arteries. The patient's left ventricular systolic function is severely impaired there is also severe pulmonary hypertension with congestive cardiac failure. We will continue the patient on IV Lasix. 2. The patient has abnormal liver function with severely increased bilirubin. Ultrasound of the liver showed some heterogeneous abnormalities. This could be secondary to alcoholic hepatitis and a combination of liver congestion. This patient's condition remains critical. We recommend patient to be transferred to [facility] where she is being followed under adult congenital heart disease clinic.
--- NOTE | 2016-12-07 22:51 | PN ---
DATE OF DICTATION: 12/07/2016 Patient is a 31-year-old white female with history of alcohol abuse of 7 or 8 years' duration who was admitted to the hospital with shortness of breath and ( ) palpitations and was found to have atrial fibrillation with rapid ventricular heart rate. She was also noted to have elevated serum transaminases, and bilirubin 5.5 yesterday and she was seen by Dr. Cruz on consultation. It is thought we are dealing with acute alcoholic hepatitis. ( ) she says that she is feeling better. She still has some fatigue and weakness but denies any abdominal pain, reports no nausea or vomiting. On physical examination, she appears comfortable in no apparent distress. Vital signs are stable. Blood pressure is 100/86. Pulse is 109, temperature 96.8. HEENT EXAMINATION: Unremarkable. Sclerae are icteric. Oral cavity with no lesions. NECK: No JVD or lymph node enlargement. CHEST: Clear to auscultation. HEART: Regular rate and rhythm. ABDOMEN: Soft ( ) nontender, nondistended. Liver and spleen are not palpable. Bowel sounds are positive. No organomegaly. EXTREMITIES: No pedal edema. SKIN: No rashes. NEURO: Alert and oriented x3. No focal deficits. LABS: WBC 8, hemoglobin 14.5, platelets 197. PT 14.4. INR 1.5. Total bilirubin is up to 9.7. AST is 383. ALT is 145. Alkaline phosphatase 142. BUN and creatinine are within normal limits. Ultrasound of the liver done yesterday showed heterogeneity of the liver suspicious for diffuse fatty infiltration. IMPRESSION: This is a lady with a history of heavy alcohol abuse who presented to the hospital with elevated serum transaminases with AST more than ALT and bilirubin up to 9.1, all of which is consistent with acute alcoholic hepatitis. At this time, possibility of viral hepatitis also needs to be considered. Ultrasound of the abdomen showed evidence of diffuse hepatocellular disease. RECOMMENDATIONS: 1. Will obtain ( ) serology for hepatitis A, B, and C. 2. Continue to watch LFTs on a daily basis. 3. I had a lengthy discussion with the patient regarding abstinence from alcohol. I will follow her closely in the outpatient setting ( ).
== END 2016-12-07 20:17 | disposition short-term general hospital (02) | DRG 432 ==
LOC: EC 23:37 → 6SEL 12-06 01:16
PROVIDERS: ADMIT Internal Medicine; ATTEND Internal Medicine
PROC: HZ2ZZZZ Detoxification Services for Substance Abuse Treatment (ICD-10-PCS; principal; 2016-12-06)
DX: K70.10 Alcoholic hepatitis without ascites (principal); I50.23 Acute on chronic systolic (congestive) heart failure; I27.2 Other secondary pulmonary hypertension; E87.2 Acidosis; E83.42 Hypomagnesemia; I48.0 Paroxysmal atrial fibrillation; E86.0 Dehydration; N39.0 Urinary tract infection, site not specified; K76.1 Chronic passive congestion of liver; K76.0 Fatty (change of) liver, not elsewhere classified; F10.129 Alcohol abuse with intoxication, unspecified; F41.9 Anxiety disorder, unspecified; I45.10 Unspecified right bundle-branch block; R11.2 Nausea with vomiting, unspecified; R74.8 Abnormal levels of other serum enzymes; Z71.41 Alcohol abuse counseling and surveillance of alcoholic; Z87.74 Personal history of (corrected) congenital malformations of heart and circulatory system; Z79.899 Other long term (current) drug therapy; Z87.891 Personal history of nicotine dependence; Y90.5 Blood alcohol level of 100-119 mg/100 ml
CPT/HCPCS: 36415; 71020; 76705; 80053; 80061; 80074; 80306; 80320; 81001; 81025; 82550; 82553; 83520; 83605; 83735; 83880; 84100; 84443; 84484; 85025; 85610; 85730; 87077; 87086; 87186; 93005; 93306; 96361; 96365; 96366; 96367; 96372; 96376; 99291

== ENCOUNTER 2017-02-25 13:09 | Inpatient (IN) | payer BC, OTHER ==
[2017-02-25] MEDS ORDERED: SODIUM CHLORIDE 0.9% 500 ML IV STA (13:45)
[2017-02-25] MEDS ORDERED: SODIUM CHLORIDE 0.9% 1,000 ML IV STA (13:45)
--- NOTE | 2017-02-25 13:52 | ED ---
General Adult HPI - General Chief complaint: Weakness Stated complaint: Weakness Time Seen by Provider: 02/25/17 13:27 Source: patient, family, RN notes reviewed, old records reviewed Mode of arrival: ambulatory Limitations: no limitations - History of Present Illness Initial comments: Chief complaint history of present illness a 31-year-old female who is at her doctor's office yesterday. She was told she had runny nose mild congestion at the time she is complaining of just feeling weak. She then spent 7 hours at work and then went home. She was placed on a Z-Russel. She presents today she's not feeling well in general just generally weak. No complaint of headache or chest pain or shortness of breath no GI/ complaints specifically. - Related Data Home Medications Medication Instructions Recorded Confirmed Azithromycin [Zithromax Z-pack] See Taper PO DIRECTED 02/25/17 02/25/17 Cetirizine HCl [Zyrtec] 10 mg PO DAILY 02/25/17 02/25/17 Furosemide [Lasix] 40 mg PO DAILY 02/25/17 02/25/17 Metoprolol Succinate (ER) [Toprol 25 mg PO DAILY 02/25/17 02/25/17 Xl] Allergies Allergy/AdvReac Type Severity Reaction Status Date / Time No Known Allergies Allergy Verified 02/25/17 14:25 Review of Systems ROS Statement: Those systems with pertinent positive or pertinent negative responses have been documented in the HPI. Review of systems. No complaint of visual acuity changes no headache nausea nausea and vomiting. No diarrhea. No chest pain palpitations or shortness of breath. No focal or lateralizing neuro deficits post weak in general. 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 Chronic A. fib and heart failure. Recently changed heart medications and states she is on Lasix which tends to make her feel dehydrated. The patient's only surgery was the open-heart surgery at age 3 months. Family history is no cancers. Patient denies any ALLERGIES. She quit smoking 4 months ago. She does have a history of alcohol overuse. States she last drank 3 days ago ROS Other: All systems not noted in ROS Statement are negative. Past Medical History Past Medical History: Atrial Fibrillation, Heart Failure Additional Past Medical History / Comment(s): pt had transposition of great arteries as an History of Any Multi-Drug Resistant Organisms: None Reported Additional Past Surgical History / Comment(s): open heart surg for transposition of great arteries, CARDIOVERTED FOR A- FIB Past Psychological History: No Psychological Hx Reported, Anxiety Smoking Status: Former smoker Past Alcohol Use History: Rare Past Drug Use History: None Reported - Past Family History Mother Family Medical History: No Reported History Father Family Medical History: No Reported History General Exam - General Exam Comments Initial Comments: General: The patient is awake and alert, complains of not feeling well in general. Weakness. Feels dehydrated from Lasix. Vital signs shows temperature 97.6 pulse 82 respiratory rate 18 pulse ox 97% room air blood pressure 147/55 Eye: Pupils are equal, round and reactive to light, extra-ocular movements are intact ; conjunctiva anicteric. Mild exophthalmos. Denies thyroid problems. Ears, nose, mouth and throat: There are moist mucous membranes and no oral lesions. Neck: The neck is supple, there is no tenderness , no carotid bruit. Cardiovascular: A regular rate and rhythm No murmur, rub or gallop is appreciated. Respiratory: Lungs are clear to auscultation, respirations are non-labored, breath sounds are equal. No wheezes, stridor, rales, or rhonchi. Gastrointestinal: Soft, non-distended, non-tender abdomen without masses or organomegaly noted. There is no rebound or guarding present. No CVA tenderness. Bowel sounds are unremarkable. Plain no nausea and vomiting. But no tenderness. Back: There is no tenderness to palpation in the midline. There is no obvious deformity. No rashes noted. Musculoskeletal: Normal ROM, no tenderness, There is no pedal edema. There is no calf tenderness or swelling. Sensation intact. Pulses equal bilaterally 2+. Neurological: CN II-XII intact, There are no obvious motor or sensory deficits. Coordination appears grossly intact. Speech is normal. No focal or lateralizing findings. Skin: Skin is warm and dry and no rashes or lesions are noted. Psychiatric: Cooperative, appropriate mood & affect, normal judgment. Limitations: no limitations Course Vital Signs 02/25/17 02/25/17 02/25/17 13:13 13:29 14:37 Temperature 96.9 F L 97.6 F Pulse Rate 110 H 82 64 Respiratory 18 18 16 Rate Blood Pressure 113/72 147/55 118/70 O2 Sat by Pulse 96 97 97 Oximetry 02/25/17 02/25/17 15:34 16:07 Temperature 97.0 F L Pulse Rate 60 99 Respiratory 15 18 Rate Blood Pressure 99/62 117/65 O2 Sat by Pulse 100 94 L Oximetry EKG Findings - EKG Comments: EKG Findings:: EKG was done and reviewed at 1354 showing sinus tachycardia with a short VA with occasional PVCs rate 109, VA was 108 QRS 178 QT 354 QTc 476. Right bundle branch block. Left ventricular hypertrophy with repolarization abnormality. EKG was similar to one done on December [address] Linares Medical Decision Making - Medical Decision Making Medical decision-making. The patient's white count 7.2 hemoglobin 14 hematocrit of 42 with a potassium of 3.2 INR 1.9. BUN 10 creatinine 0.8 GFR greater than 60. Glucose 169. MB elevated at 5.6 troponin mildly elevated 0.047. TSH 4.0. Urine shows red blood cells and white blood cells and many bacteria. The patient will be placed on Levaquin 500 daily until cultures of the urine return.Patient's complaint labs discussed with Dr. Felton patient be admitted to his service with repeat cardiac enzymes. Patient does not have any chest pain. - Lab Data Result diagrams: 02/25/17 13:54 02/25/17 13:54 Lab Results 02/25/17 02/25/17 02/25/17 Range/Units 13:20 13:54 13:54 WBC (3.8-10.6) k/uL RBC (3.80-5.40) m/uL Hgb (11.4-16.0) gm/dL Hct (34.0-46.0) % MCV (80.0-100.0) fL MCH (25.0-35.0) pg MCHC (31.0-37.0) g/dL RDW (11.5-15.5) % Plt Count (150-450) k/uL Neutrophils % % Lymphocytes % % Monocytes % % Eosinophils % % Basophils % % Neutrophils # (1.3-7.7) k/uL Lymphocytes # (1.0-4.8) k/uL Monocytes # (0-1.0) k/uL Eosinophils # (0-0.7) k/uL Basophils # (0-0.2) k/uL Macrocytosis PT (9.0-12.0) sec INR (<1.1) APTT (22.0-30.0) sec Sodium 133 L (137-145) mmol/L Potassium 3.2 L (3.5-5.1) mmol/L Chloride 89 L (98-107) mmol/L Carbon Dioxide 28 (22-30) mmol/L Anion Gap 16 mmol/L BUN 10 (7-17) mg/dL Creatinine 0.80 (0.52-1.04) mg/dL Est GFR (MDRD) Af Amer >60 (>60 ml/min/1.73 sqM) Est GFR (MDRD) Non-Af >60 (>60 ml/min/1.73 sqM) Glucose 129 H (74-99) mg/dL Calcium 8.5 (8.4-10.2) mg/dL Phosphorus 2.5 (2.5-4.5) mg/dL Magnesium 1.2 L (1.6-2.3) mg/dL Total Bilirubin 8.2 H (0.2-1.3) mg/dL AST 118 H (14-36) U/L ALT 68 H (9-52) U/L Alkaline Phosphatase 128 H (38-126) U/L Total Creatine Kinase 407 H (30-135) U/L CK-MB (CK-2) 5.6 H* (0.0-2.4) ng/mL CK-MB (CK-2) Rel Index 1.4 Troponin I 0.047 H* (0.000-0.034) ng/mL NT-Pro-B Natriuret Pep pg/mL Total Protein 6.6 (6.3-8.2) g/dL Albumin 3.7 (3.5-5.0) g/dL TSH 4.030 (0.465-4.680) mIU/L Urine Color Oliver Urine Appearance Cloudy H (Clear) Urine pH 5.5 (5.0-8.0) Ur Specific [place] 1.013 (1.001-1.035) Urine Protein Trace H (Negative) Urine Glucose (UA) Negative (Negative) Urine Ketones Negative (Negative) Urine Blood Moderate H (Negative) Urine Nitrite Negative (Negative) Urine Bilirubin 2+ H (Negative) Urine Urobilinogen 4.0 (<2.0) mg/dL Ur Leukocyte Esterase Small H (Negative) Urine RBC 19 H (0-5) /hpf Urine WBC 5 (0-5) /hpf Ur Squamous Epith Cells 6 H (0-4) /hpf Urine Bacteria Many H (None) /hpf Hyaline Casts 86 H (0-2) /lpf Urine Mucus Rare H (None) /hpf Serum Alcohol <10 mg/dL 02/25/17 02/25/17 02/25/17 Range/Units 13:54 13:54 13:54 WBC 7.2 (3.8-10.6) k/uL RBC 4.29 (3.80-5.40) m/uL Hgb 14.1 (11.4-16.0) gm/dL Hct 42.4 (34.0-46.0) % MCV 99.0 (80.0-100.0) fL MCH 33.0 (25.0-35.0) pg MCHC 33.3 (31.0-37.0) g/dL RDW 15.8 H (11.5-15.5) % Plt Count 224 (150-450) k/uL Neutrophils % 67 % Lymphocytes % 20 % Monocytes % 7 % Eosinophils % 1 % Basophils % 1 % Neutrophils # 4.8 (1.3-7.7) k/uL Lymphocytes # 1.4 (1.0-4.8) k/uL Monocytes # 0.5 (0-1.0) k/uL Eosinophils # 0.1 (0-0.7) k/uL Basophils # 0.1 (0-0.2) k/uL Macrocytosis Slight PT 18.4 H (9.0-12.0) sec INR 1.9 (<1.1) APTT 26.3 (22.0-30.0) sec Sodium (137-145) mmol/L Potassium (3.5-5.1) mmol/L Chloride (98-107) mmol/L Carbon Dioxide (22-30) mmol/L Anion Gap mmol/L BUN (7-17) mg/dL Creatinine (0.52-1.04) mg/dL Est GFR (MDRD) Af Amer (>60 ml/min/1.73 sqM) Est GFR (MDRD) Non-Af (>60 ml/min/1.73 sqM) Glucose (74-99) mg/dL Calcium (8.4-10.2) mg/dL Phosphorus (2.5-4.5) mg/dL Magnesium (1.6-2.3) mg/dL Total Bilirubin (0.2-1.3) mg/dL AST (14-36) U/L ALT (9-52) U/L Alkaline Phosphatase (38-126) U/L Total Creatine Kinase (30-135) U/L CK-MB (CK-2) (0.0-2.4) ng/mL CK-MB (CK-2) Rel Index Troponin I (0.000-0.034) ng/mL NT-Pro-B Natriuret Pep 3750 pg/mL Total Protein (6.3-8.2) g/dL Albumin (3.5-5.0) g/dL TSH (0.465-4.680) mIU/L Urine Color Urine Appearance (Clear) Urine pH (5.0-8.0) Ur Specific [place] (1.001-1.035) Urine Protein (Negative) Urine Glucose (UA) (Negative) Urine Ketones (Negative) Urine Blood (Negative) Urine Nitrite (Negative) Urine Bilirubin (Negative) Urine Urobilinogen (<2.0) mg/dL Ur Leukocyte Esterase (Negative) Urine RBC (0-5) /hpf Urine WBC (0-5) /hpf Ur Squamous Epith Cells (0-4) /hpf Urine Bacteria (None) /hpf Hyaline Casts (0-2) /lpf Urine Mucus (None) /hpf Serum Alcohol mg/dL Disposition Clinical Impression: Urinary tract infection, Elevated troponin Disposition: ADMITTED IP TO THIS HOSP Condition: Fair Referrals: Jocy Matute DO [Primary Care Provider] - 1-2 days
[2017-02-25 14:10] LABS: Appearance,Urine Cloudy (Clear); Bacteria,Urine Many /hpf; Bilirubin,Urine 2+ (Negative); Glucose,Urine (UA) Negative (Negative); Ketones,Urine Negative (Negative); Leukocyte Esterase,Urine Small (Negative); Mucus,Urine Rare /hpf; Nitrite,Urine Negative (Negative); PH, Urine 5.5 (5.0-8.0); Particle Count 35791; Protein,Urine Trace (Negative); RBC,Urine 19 /hpf (0-5); Specific Gravity,Urine 1.013 (1.001-1.035); Squamous Epithelial Cell,Urine 6 /hpf (0-4); UA Billing (MACRO vs. MICRO) MICRO; WBC,Urine 5 /hpf (0-5)
[2017-02-25 14:29] LABS: Basophils # (A) 0.1 k/uL (0-0.2); Basophils % (A) 1 %; CHCM 33.5; Eosinophils # (A) 0.1 k/uL (0-0.7); Eosinophils % (A) 1 %; HCT 42.4 % (34.0-46.0); HDW 2.98; HGB 14.1 gm/dL (11.4-16.0); Luc % (Auto) 4; Lymphocytes # (A) 1.4 k/uL (1.0-4.8); Lymphocytes % (A) 20 %; MCHC 33.3 g/dL (31.0-37.0); Macrocytosis Slight; Mean Platelet Volume 7.8; Monocytes # (A) 0.5 k/uL (0-1.0); Monocytes % (A) 7 %; Neutrophils # (A) 4.8 k/uL (1.3-7.7); Neutrophils % (A) 67 %; RBC 4.29 m/uL (3.80-5.40); RDW 15.8 % (11.5-15.5); WBC 7.2 k/uL (3.8-10.6); WBC (Perox) 7.13
--- NOTE | 2017-02-25 14:33 | XR ---
EXAMINATION TYPE: XR chest 2V DATE OF EXAM: 02/25/2017 HISTORY: Weakness. REFERENCE: Previous study dated 12/06/2016. FINDINGS: There is multichamber cardiac enlargement. There is pulmonary vascular congestion. There is subtle interstitial change improved from previous. Pleural spaces appear clear. IMPRESSION: IMPROVING CHANGES OF PULMONARY EDEMA.
[2017-02-25 14:42] LABS: ALT 68 U/L (9-52); AST 118 U/L (14-36); Alcohol <10 mg/dL; Alkaline Phosphatase 128 U/L (38-126); Anion Gap 16 mmol/L; Blood Urea Nitrogen 10 mg/dL (7-17); Calcium 8.5 mg/dL (8.4-10.2); Carbon Dioxide 28 mmol/L (22-30); Chloride 89 mmol/L (98-107); Glucose 129 mg/dL (74-99); Magnesium 1.2 mg/dL (1.6-2.3); Non-African American GFR(MDRD) >60 (>60 ml/min/1.73 sqM); Phosphorous 2.5 mg/dL (2.5-4.5); Potassium 3.2 mmol/L (3.5-5.1); Sodium 133 mmol/L (137-145); Total Bilirubin 8.2 mg/dL (0.2-1.3); Total Protein 6.6 g/dL (6.3-8.2)
[2017-02-25 14:44] LABS: Partial Thromboplastin Time 26.3 sec (22.0-30.0)
[2017-02-25 14:51] LABS: INR 1.9 (<1.1); Prothrombin Time 18.4 sec (9.0-12.0)
[2017-02-25 15:05] LABS: Creatine Kinase MB 5.6 ng/mL (0.0-2.4); Troponin I 0.047 ng/mL (0.000-0.034)
[2017-02-25] MEDS ORDERED: LEVOFLOXACIN 500MG-D5W PMX 500 MG in DEXTROSE/WATER 1 100ML.BAG IVPB STA (16:50)
[2017-02-25] MEDS ORDERED: NALOXONE 0.4 MG/ML 1 ML VIAL IV PRN (16:53)
[2017-02-25] MEDS ORDERED: PROCHLORPERAZINE 5 MG TAB PO PRN (16:53)
[2017-02-25] MEDS ORDERED: POTASSIUM CHLORIDE ER 20 MEQ TAB.ER PO STA (17:12)
[2017-02-25 17:54] VITALS: BMI 21.2
[2017-02-25] MEDS ORDERED: Magnesium Replacement Protocol 1 EACH MISC MISCELLANE PRN (18:06)
--- NOTE | 2017-02-25 18:31 | CONS ---
DATE OF CONSULTATION: CHIEF COMPLAINT: Elevated troponin. 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 She apparently had an earache a few days ago, started on Z-Russel, following which she did not feel well and came in. Patient had recently undergone cardiac catheterization at [facility]. She also had cardioversion in the past. She carries a history of congestive heart failure. I do not have any of her information with me. Past medical history is significant for transposition, status post surgery, hypertension. Current medications include: 1. Z-Russel. 2. Zyrtec. 3. Lasix. 4. Toprol XL. ALLERGIES: NO KNOWN DRUG ALLERGIES. FAMILY HISTORY: Negative for premature coronary artery disease. SOCIAL HISTORY: Negative for current smoking or EtOH abuse. REVIEW OF SYSTEMS: HEENT: Unremarkable. CARDIAC: As described above. RESPIRATORY: Negative. GI: Negative. GENITOURINARY: Negative. GENITOURINARY: Negative. ALLERGY/IMMUNOLOGY: Negative. MUSCULOSKELETAL: Significant for arthritis. PSYCHOSOCIAL: Negative. ENDOCRINE: Negative. DERMATOLOGIC: Negative. CONSTITUTIONAL: Negative. Rest of the system review is not relevant. On exam, heart rate is 100 beats per minute. Blood pressure is 117/83, respiratory rate 18, afebrile. There is no jugular venous distention. Chest exam reveals good air entry bilaterally. Heart exam reveals first and second heart sounds. An early diastolic murmur in the left upper parasternal border and a systolic murmur in the left lower sternal border. Abdomen is soft. Examination of extremities reveals trace edema. Peripheral pulses are felt. Labs show that the INR is 1.9. Creatinine is 0.8. Troponin is 0.047, of unclear clinical significance. BNP is elevated at 3750. There is evidence of UTI. Hemoglobin is 14. ASSESSMENT: 1. Elevated troponin of unclear clinical significance. 2. Congenital heart disease, status post surgery. 3. Urinary tract infection. PLAN: Will continue the patient on Lasix, Toprol that she is on. I am going to review the records from the outpatient setting and decide on further course of action.
[2017-02-25] MEDS: SODIUM CHLORIDE 0.9% 1,000 ML IV SCH (18:37)
[2017-02-25] MEDS: MAGNESIUM SULFATE-D5W PMX 1 GM in DEXTROSE/WATER 1 100ML.BAG IVPB SCH ×3 (18:48→21:56)
[2017-02-25 19:27] LABS: Hepatitis C Virus IgG Ab Negative (Negative); Hepatitis C Virus IgG Index 0.11
[2017-02-25] MEDS: ALPRAZolam 0.25 MG TAB PO PRN (20:22)
[2017-02-25] MEDS: FAMOTIDINE 20 MG TAB PO SCH (20:22)
[2017-02-25 21:01] LABS: Creatine Kinase MB 4.3 ng/mL (0.0-2.4); Troponin I 0.043 ng/mL (0.000-0.034)
[2017-02-26] MEDS: ALPRAZolam 0.25 MG TAB PO PRN ×3 (01:40→14:02)
[2017-02-26 02:57] LABS: Creatine Kinase MB 5.6 ng/mL (0.0-2.4); Troponin I 0.036 ng/mL (0.000-0.034)
[2017-02-26 07:04] LABS: Aty Lym Flag Slight; CH 32.5; CHCM 32.9; HCT 38.4 % (34.0-46.0); HDW 2.91; HGB 12.6 gm/dL (11.4-16.0); MCH 32.4 pg (25.0-35.0); MCHC 32.7 g/dL (31.0-37.0); Macrocytosis Slight; RBC 3.88 m/uL (3.80-5.40); RDW 15.7 % (11.5-15.5); WBC 4.8 k/uL (3.8-10.6); WBC (Perox) 5.07
[2017-02-26 07:17] LABS: Anion Gap 12 mmol/L; Blood Urea Nitrogen 8 mg/dL (7-17); Calcium 7.7 mg/dL (8.4-10.2); Carbon Dioxide 28 mmol/L (22-30); Chloride 89 mmol/L (98-107); Glucose 90 mg/dL (74-99); Non-African American GFR(MDRD) >60 (>60 ml/min/1.73 sqM); Sodium 129 mmol/L (137-145)
[2017-02-26 07:24] LABS: Potassium 2.7 mmol/L (3.5-5.1)
[2017-02-26] MEDS ORDERED: METOPROLOL SUCCINATE (ER) 25 MG TAB.ER.24H PO SCH ×2 (09:00→21:00)
[2017-02-26 09:06] LABS: Nucleated Red Blood Cells 0 /100 WBC (0-0)
[2017-02-26 09:10] LABS: Total Cells Counted 100
[2017-02-26 09:11] LABS: Polychromasia Present; Target Cells Present
[2017-02-26] MEDS: POTASSIUM CHLORIDE ER 20 MEQ TAB.ER PO SCH ×4 (09:42→12:58)
[2017-02-26] MEDS: SODIUM CHLORIDE 0.9% 1,000 ML IV SCH ×2 (09:42→16:28)
[2017-02-26] MEDS: FUROSEMIDE 40 MG TAB PO SCH (09:43)
[2017-02-26] MEDS: FAMOTIDINE 20 MG TAB PO SCH ×2 (09:43→21:08)
[2017-02-26] MEDS: LORATADINE 10 MG TAB PO SCH (09:43)
--- NOTE | 2017-02-26 10:55 | P.HPIM ---
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 She also had a recent transfer to [facility] in regards to possible cardiogenic liver cirrhosis. Patient reports that she was not diagnosed by [facility] with this diagnosis. However they did start her on Lasix 40 mg by mouth daily and she is supposed to follow up with the [facility] liver specialist in March. Her liver numbers have trended down since her mission in November. However she does still have evidence of jaundice within total bilirubin of 8.2. Patient presented to the hospital after not feeling well for a few days. She complains of muscle cramping in the legs and hands. She had been seen by her PCP on Wednesday and was started on a Z-Russel for some upper respiratory symptoms. She came into the emergency room due to concerns of feeling dehydrated and the muscle cramping and being on the Lasix. She was found to have potassium of 3.2 and a magnesium of 1.2. She is receiving supplement. Sodium level was also low at 129. She's receiving some IV fluids. She's also had evidence of a UTI and started on Rocephin. Due to patient's cardiac history and mildly elevated troponins cardiology was consulted. Patient is not complaining of any chest pain or shortness of breath. Denies any nausea or vomiting. Denies any bowel movement changes or urinary symptoms. Review of Systems Please refer to HPI otherwise unremarkable Past Medical History Past Medical History: Atrial Fibrillation, Heart Failure Additional Past Medical History / Comment(s): pt had transposition of great arteries as an History of Any Multi-Drug Resistant Organisms: None Reported Additional Past Surgical History / Comment(s): open heart surg for transposition of great arteries, CARDIOVERTED FOR A- FIB Past Psychological History: No Psychological Hx Reported, Anxiety Smoking Status: Former smoker Past Alcohol Use History: Rare Past Drug Use History: None Reported - Past Family History Mother Family Medical History: No Reported History Father Family Medical History: No Reported History Medications and Allergies Home Medications Medication Instructions Recorded Confirmed Type Azithromycin [Zithromax Z-pack] See Taper PO DIRECTED 02/25/17 02/25/17 History Cetirizine HCl [Zyrtec] 10 mg PO DAILY 02/25/17 02/25/17 History Furosemide [Lasix] 40 mg PO DAILY 02/25/17 02/25/17 History Metoprolol Succinate (ER) [Toprol 25 mg PO DAILY 02/25/17 02/25/17 History Xl] Allergies Allergy/AdvReac Type Severity Reaction Status Date / Time No Known Allergies Allergy Verified 02/25/17 14:25 Physical Exam Vitals: Vital Signs Temp Pulse Pulse Resp BP BP Pulse Ox 02/26/17 08:00 97.6 F 109 H 16 112/74 96 02/26/17 03:47 107 H 18 02/26/17 03:42 96.1 F L 107 H 18 104/68 96 02/25/17 23:59 105 H 20 02/25/17 23:57 96.7 F L 105 H 20 105/79 96 02/25/17 20:00 96.7 F L 107 H 20 97/67 96 02/25/17 18:10 97.8 F 107 H 16 116/68 96 02/25/17 18:08 107 H 18 02/25/17 17:21 97.2 F L 109 H 18 117/83 95 02/25/17 17:20 97.0 F L 107 H 18 116/68 98 02/25/17 16:07 97.0 F L 99 18 117/65 94 L 02/25/17 15:34 60 15 99/62 100 02/25/17 14:37 64 16 118/70 97 02/25/17 13:29 97.6 F 82 18 147/55 97 02/25/17 13:13 96.9 F L 110 H 18 113/72 96 Intake and Output 02/25/17 02/26/17 02/26/17 22:59 06:59 14:59 Intake Total 985 660 180 Balance 985 660 180 Intake: Intake, IV Titration 985 660 Amount Magnesium Sulfate-D5w Pmx 200 100 1 gm In Dextrose/Water 1 100ml.bag @ 100 mls/hr IVPB Q1H MICHAEL Rx#: [id number] Sodium Chloride 0.9% 1, 785 560 000 ml @ 70 mls/hr IV . [id number] MICHAEL Rx#:[id number] Oral 180 Other: Voiding Method Toilet Toilet Toilet # Voids 1 Weight 54.431 kg 57.2 kg HEENT scleral icterus Head normocephalic Neck supple Lungs clear to auscultation bilaterally no wheezing or crackles Heart regular rate and rhythm S1-S2, no rub or gallop Abdomen is soft nontender nondistended positive bowel sounds no hepatosplenomegaly Extremities no edema Neuro alert and orientated to 3 Skin exam jaundice Results CBC & Chem 7: 02/26/17 06:14 02/26/17 06:14 Labs: Abnormal Lab Results - Last 24 Hours (Table) 02/25/17 02/25/17 02/25/17 Range/Units 13:20 13:54 13:54 RDW (11.5-15.5) % PT (9.0-12.0) sec Sodium 133 L (137-145) mmol/L Potassium 3.2 L (3.5-5.1) mmol/L Chloride 89 L (98-107) mmol/L Glucose 129 H (74-99) mg/dL Calcium (8.4-10.2) mg/dL Magnesium 1.2 L (1.6-2.3) mg/dL Total Bilirubin 8.2 H (0.2-1.3) mg/dL AST 118 H (14-36) U/L ALT 68 H (9-52) U/L Alkaline Phosphatase 128 H (38-126) U/L Total Creatine Kinase 407 H (30-135) U/L CK-MB (CK-2) 5.6 H* (0.0-2.4) ng/mL Troponin I 0.047 H* (0.000-0.034) ng/mL Urine Appearance Cloudy H (Clear) Urine Protein Trace H (Negative) Urine Blood Moderate H (Negative) Urine Bilirubin 2+ H (Negative) Ur Leukocyte Esterase Small H (Negative) Urine RBC 19 H (0-5) /hpf Ur Squamous Epith Cells 6 H (0-4) /hpf Urine Bacteria Many H (None) /hpf Hyaline Casts 86 H (0-2) /lpf Urine Mucus Rare H (None) /hpf 02/25/17 02/25/17 02/25/17 Range/Units 13:54 13:54 19:43 RDW 15.8 H (11.5-15.5) % PT 18.4 H (9.0-12.0) sec Sodium (137-145) mmol/L Potassium (3.5-5.1) mmol/L Chloride (98-107) mmol/L Glucose (74-99) mg/dL Calcium (8.4-10.2) mg/dL Magnesium (1.6-2.3) mg/dL Total Bilirubin (0.2-1.3) mg/dL AST (14-36) U/L ALT (9-52) U/L Alkaline Phosphatase (38-126) U/L Total Creatine Kinase 370 H (30-135) U/L CK-MB (CK-2) 4.3 H* (0.0-2.4) ng/mL Troponin I 0.043 H* (0.000-0.034) ng/mL Urine Appearance (Clear) Urine Protein (Negative) Urine Blood (Negative) Urine Bilirubin (Negative) Ur Leukocyte Esterase (Negative) Urine RBC (0-5) /hpf Ur Squamous Epith Cells (0-4) /hpf Urine Bacteria (None) /hpf Hyaline Casts (0-2) /lpf Urine Mucus (None) /hpf 02/26/17 02/26/17 02/26/17 Range/Units 01:58 06:14 06:14 RDW 15.7 H (11.5-15.5) % PT (9.0-12.0) sec Sodium 129 L (137-145) mmol/L Potassium 2.7 L* (3.5-5.1) mmol/L Chloride 89 L (98-107) mmol/L Glucose (74-99) mg/dL Calcium 7.7 L (8.4-10.2) mg/dL Magnesium (1.6-2.3) mg/dL Total Bilirubin (0.2-1.3) mg/dL AST (14-36) U/L ALT (9-52) U/L Alkaline Phosphatase (38-126) U/L Total Creatine Kinase 362 H (30-135) U/L CK-MB (CK-2) 5.6 H* (0.0-2.4) ng/mL Troponin I 0.036 H* (0.000-0.034) ng/mL Urine Appearance (Clear) Urine Protein (Negative) Urine Blood (Negative) Urine Bilirubin (Negative) Ur Leukocyte Esterase (Negative) Urine RBC (0-5) /hpf Ur Squamous Epith Cells (0-4) /hpf Urine Bacteria (None) /hpf Hyaline Casts (0-2) /lpf Urine Mucus (None) /hpf Microbiology - Last 24 Hours (Table) 02/25/17 13:20 Urine Culture - Preliminary Urine,Voided Thrombosis Risk Factor Assmnt - Choose All That Apply Any of the Below Risk Factors Present?: No Other Risk Factors: No Other congenital or acquired thrombophilia - If yes, enter type in comment: No Thrombosis Risk Factor Assessment Level: Very Low Risk Assessment and Plan Plan: 1. Severe muscle cramping in the legs and hands likely related to potassium deficiency. Showing improvement as potassium is being replaced 2. Electrolyte imbalance with hypokalemia, hypomagnesemia and hyponatremia likely secondary to the Lasix. Patient is receiving supplements for hypokalemia and hypomagnesemia. Continue IV fluids KVO normal saline. Monitor closely. 3. Mildly elevated troponins of unclear clinical significance: Evaluated by cardiology the recommending to continue with her current medications and they will order an echo in reviewing her outpatient records 4. Hyperbilirubinemia: With mildly elevated LFTs. 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 A patient is to follow up with [facility] liver specialist in March. He shouldn't reports that she was not officially diagnosed with the cardiogenic liver cirrhosis. Hepatitis C is negative. EtOH level is less than 10. She was started on Lasix 40 mg by mouth daily by [facility] specialist 5. 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 UTI: Await urine culture. Continue Rocephin 7. History of paroxysmal atrial fibrillation 8. History of severe pulmonary hypertension 9. History of chronic systolic CHF with EF of 30-35% currently on Lasix 40 mg by mouth daily. Chest x-ray shows improving changes and pulmonary edema 10. GI prophylaxis omeprazole and DVT prophylaxis subcu heparin Time with Patient: Greater than 30 (Greater than 50% of the total time spent in counseling and coordination of care. I performed an examination of the patient and discussed their management with the physician Nutritional Health Coach. I have reviewed the Physician Nutritional Health Coach's notes and agree with the documented findings and plan of care)
[2017-02-26 11:36] LABS: ALT 62 U/L (9-52); AST 92 U/L (14-36); Alkaline Phosphatase 132 U/L (38-126); Anion Gap 13 mmol/L; Blood Urea Nitrogen 7 mg/dL (7-17); Calcium 8.1 mg/dL (8.4-10.2); Carbon Dioxide 27 mmol/L (22-30); Chloride 89 mmol/L (98-107); Glucose 86 mg/dL (74-99); Non-African American GFR(MDRD) >60 (>60 ml/min/1.73 sqM); Sodium 129 mmol/L (137-145); Total Bilirubin 10.2 mg/dL (0.2-1.3); Total Protein 6.5 g/dL (6.3-8.2)
--- NOTE | 2017-02-26 11:43 | ECHOF ---
Referral Reason:ASSESS HEART FUNCTION MEASUREMENTS -------- HEIGHT: 160.0 cm WEIGHT: 55.8 kg BP: 104/68 RVIDd: 3.3 cm (< 3.3) IVSd: 1.2 cm (0.6 - 1.1) LVIDd: 4.5 cm (3.9 - 5.3) LVPWd: 1.2 cm (0.6 - 1.1) IVSs: 1.7 cm LVIDs: 4.1 cm LVPWs: 1.5 cm LA Diam: 2.8 cm (2.7 - 3.8) Ao Diam: 3.5 cm (2.0 - 3.7) AV Cusp: 1.9 cm (1.5 - 2.6) MV EXCURSION: 12.842 mm (> 18.000) MV EF SLOPE: 133 mm/s (70 - 150) EPSS: 1.5 cm AR PHT: 184 ms RAP: 5.00 mmHg RVSP: 68.94 mmHg FINDINGS -------- This was a technically adequate study. The left ventricular size is normal. There is borderline concentric left ventricular hypertrophy. Overall left ventricular systolic function is moderate-severely impaired with, an EF between 30 - 35 %. The right ventricle is mildly enlarged. The left atrium is normal in size. The right atrium is normal in size. The aortic valve was not well visualized. There is moderate aortic regurgitation. The mitral valve is normal. Moderate tricuspid regurgitation present. There is severe pulmonary hypertension. The right ventricular systolic pressure, as measured by Doppler, is 68.94mmHg. The aortic root size is normal. 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 The inferior vena cava is dilated with no significant inspiratory collapse which is consistent estimated right atrial pressure of >15 mmHg. The pericardium is normal. CONCLUSIONS -------- 1. This was a technically adequate study. 2. Moderate tricuspid regurgitation present. 3. There is severe pulmonary hypertension. 4. The right ventricular systolic pressure, as measured by Doppler, is 68.94mmHg. 5. The aortic root size is normal. 6. 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 7. The inferior vena cava is dilated with no significant inspiratory collapse which is consistent estimated right atrial pressure of >15 mmHg. 8. The pericardium is normal. 9. The left ventricular size is normal. 10. There is borderline concentric left ventricular hypertrophy. 11. Overall left ventricular systolic function is moderate-severely impaired with, an EF between 30 - 35 %. 12. The right ventricle is mildly enlarged. 13. The left atrium is normal in size. 14. The right atrium is normal in size. 15. The aortic valve was not well visualized. 16. The mitral valve is normal. CADASTRAL ENGINEER: Susan Gerber RDCS
[2017-02-26 12:36] LABS: INR 1.9 (<1.1)
--- NOTE | 2017-02-26 13:33 | P.CONS ---
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 Admitted with chest congestion rhinitis not feeling well with earache. Recently started on a Z-Russel. [facility] liver evaluation in progress; needs to schedule appointment. Elevated troponin level of unclear clinical significance 0.047. Possible UTI. Consultation requested for elevated liver enzymes jaundice. Current labs white count 4.8. Hemoglobin 12.6. MCV 99. Platelet 189. Total bilirubin 8.2-10.2. AST 92-118. ALT 62-68. Alkaline phosphatase 128-132. Serum alcohol less than 10. Hepatitis panel negative. Ejection fraction 30-35% per echo. Liver ultrasound November 2016 no liver masses. Heterogeneity of liver reflect mild diffuse fatty infiltration possible hepatocellular disease. Still drinking alcohol prior to admission. Review of Systems Constitutional: Denies fever, chills, sweats, weight gain, or loss. HEENT: Negative for migraines, blurred vision or loss, earaches, drainage, tinnitus, oral mucosal lesions, dysphagia, or odynophagia. CARDIAC: History of transposition of great vessels status post cardiac surgery as a child. Paroxysmal atrial fibrillation. CHF. Hypertension. RESPIRATORY: Negative for shortness of breath, hemoptysis, cough, or sputum production. GI: See HPI for pertinent findings. : Negative for hematuria, urgency, frequency, polyuria, or dysuria. GYNc: Denies possibility of . Negative vaginal discharge. MUSCULOSKELETAL: Negative for muscle aches, swelling, arthritis, and arthralgias. NEUROLOGIC: Negative for stroke or TIA. ENDOCRINE: Negative for thyroid problems. SKIN: Negative for rash or itching. PSYCHIATRIC: History of anxiety. Denies depression. All systems: negative (See HPI) 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 History of Any Multi-Drug Resistant Organisms: None Reported Additional Past Surgical History / Comment(s): open heart surg for transposition of great arteries, CARDIOVERTED FOR A- FIB Past Psychological History: No Psychological Hx Reported, Anxiety Smoking Status: Former smoker Past Alcohol Use History: Rare Past Drug Use History: None Reported - Past Family History Mother Family Medical History: No Reported History Father Family Medical History: No Reported History Medications and Allergies Home Medications Medication Instructions Recorded Confirmed Type Azithromycin [Zithromax Z-pack] See Taper PO DIRECTED 02/25/17 02/25/17 History Cetirizine HCl [Zyrtec] 10 mg PO DAILY 02/25/17 02/25/17 History Furosemide [Lasix] 40 mg PO DAILY 02/25/17 02/25/17 History Metoprolol Succinate (ER) [Toprol 25 mg PO DAILY 02/25/17 02/25/17 History Xl] Allergies Allergy/AdvReac Type Severity Reaction Status Date / Time No Known Allergies Allergy Verified 02/25/17 14:25 Physical Exam Vitals: Vital Signs Temp Pulse Pulse Resp BP BP Pulse Ox 02/26/17 12:06 97.8 F 108 H 16 111/75 99 02/26/17 11:30 108 H 16 02/26/17 11:29 97.8 F 108 H 16 111/75 99 02/26/17 08:00 97.6 F 109 H 16 112/74 96 02/26/17 03:47 107 H 18 02/26/17 03:42 96.1 F L 107 H 18 104/68 96 02/25/17 23:59 105 H 20 02/25/17 23:57 96.7 F L 105 H 20 105/79 96 02/25/17 20:00 96.7 F L 107 H 20 97/67 96 02/25/17 18:10 97.8 F 107 H 16 116/68 96 02/25/17 18:08 107 H 18 02/25/17 17:21 97.2 F L 109 H 18 117/83 95 02/25/17 17:20 97.0 F L 107 H 18 116/68 98 02/25/17 16:07 97.0 F L 99 18 117/65 94 L 02/25/17 15:34 60 15 99/62 100 02/25/17 14:37 64 16 118/70 97 02/25/17 13:29 97.6 F 82 18 147/55 97 02/25/17 13:13 96.9 F L 110 H 18 113/72 96 Intake and Output 02/25/17 02/26/17 02/26/17 22:59 06:59 14:59 Intake Total 632 879 2193 Output Total 200 Balance 985 660 870 Intake: Intake, IV Titration 985 660 890 Amount Magnesium Sulfate-D5w Pmx 200 100 1 gm In Dextrose/Water 1 100ml.bag @ 100 mls/hr IVPB Q1H MICHAEL Rx#: [id number] Sodium Chloride 0.9% 1, 785 560 840 000 ml @ 70 mls/hr IV . [id number] MICHAEL Rx#:[id number] cefTRIAXone 1,000 mg In 50 Sodium Chloride 0.9% 50 ml @ 100 mls/hr IVPB Q24HR MICHAEL Rx#:[id number] Oral 180 Output: Urine 200 Other: Voiding Method Toilet Toilet Toilet # Voids 1 Weight 54.431 kg 57.2 kg General appearance: The patient is alert, oriented, in no acute distress. Jaundice. HET: Head is normocephalic and atraumatic. Pupils are equal and reactive. Sclerae icterus. Oropharynx is clear without lesions. Neck: Supple without lymphadenopathy. Trachea midline. Heart: S1 S2. Regular rate and rhythm. Lungs: No crackles or wheezes are heard. Abdomen: Soft, nontender, nondistended with bowel sounds. No peritoneal signs. No palpable organomegaly or masses. Extremities: Normal skin color and turgor. No cyanosis, rash, ulceration, clubbing, or edema. Radial and pedal pulses are 2/4 bilaterally. Neurological: No focal deficits. Strength and sensation are grossly intact. Results CBC & Chem 7: 02/26/17 06:14 02/26/17 11:07 Labs: Abnormal Lab Results - Last 24 Hours (Table) 02/25/17 02/25/17 02/25/17 Range/Units 13:20 13:54 13:54 RDW (11.5-15.5) % PT (9.0-12.0) sec Sodium 133 L (137-145) mmol/L Potassium 3.2 L (3.5-5.1) mmol/L Chloride 89 L (98-107) mmol/L Glucose 129 H (74-99) mg/dL Calcium (8.4-10.2) mg/dL Magnesium 1.2 L (1.6-2.3) mg/dL Total Bilirubin 8.2 H (0.2-1.3) mg/dL AST 118 H (14-36) U/L ALT 68 H (9-52) U/L Alkaline Phosphatase 128 H (38-126) U/L Total Creatine Kinase 407 H (30-135) U/L CK-MB (CK-2) 5.6 H* (0.0-2.4) ng/mL Troponin I 0.047 H* (0.000-0.034) ng/mL Urine Appearance Cloudy H (Clear) Urine Protein Trace H (Negative) Urine Blood Moderate H (Negative) Urine Bilirubin 2+ H (Negative) Ur Leukocyte Esterase Small H (Negative) Urine RBC 19 H (0-5) /hpf Ur Squamous Epith Cells 6 H (0-4) /hpf Urine Bacteria Many H (None) /hpf Hyaline Casts 86 H (0-2) /lpf Urine Mucus Rare H (None) /hpf 02/25/17 02/25/17 02/25/17 Range/Units 13:54 13:54 19:43 RDW 15.8 H (11.5-15.5) % PT 18.4 H (9.0-12.0) sec Sodium (137-145) mmol/L Potassium (3.5-5.1) mmol/L Chloride (98-107) mmol/L Glucose (74-99) mg/dL Calcium (8.4-10.2) mg/dL Magnesium (1.6-2.3) mg/dL Total Bilirubin (0.2-1.3) mg/dL AST (14-36) U/L ALT (9-52) U/L Alkaline Phosphatase (38-126) U/L Total Creatine Kinase 370 H (30-135) U/L CK-MB (CK-2) 4.3 H* (0.0-2.4) ng/mL Troponin I 0.043 H* (0.000-0.034) ng/mL Urine Appearance (Clear) Urine Protein (Negative) Urine Blood (Negative) Urine Bilirubin (Negative) Ur Leukocyte Esterase (Negative) Urine RBC (0-5) /hpf Ur Squamous Epith Cells (0-4) /hpf Urine Bacteria (None) /hpf Hyaline Casts (0-2) /lpf Urine Mucus (None) /hpf 02/26/17 02/26/17 02/26/17 Range/Units 01:58 06:14 06:14 RDW 15.7 H (11.5-15.5) % PT (9.0-12.0) sec Sodium 129 L (137-145) mmol/L Potassium 2.7 L* (3.5-5.1) mmol/L Chloride 89 L (98-107) mmol/L Glucose (74-99) mg/dL Calcium 7.7 L (8.4-10.2) mg/dL Magnesium (1.6-2.3) mg/dL Total Bilirubin (0.2-1.3) mg/dL AST (14-36) U/L ALT (9-52) U/L Alkaline Phosphatase (38-126) U/L Total Creatine Kinase 362 H (30-135) U/L CK-MB (CK-2) 5.6 H* (0.0-2.4) ng/mL Troponin I 0.036 H* (0.000-0.034) ng/mL Urine Appearance (Clear) Urine Protein (Negative) Urine Blood (Negative) Urine Bilirubin (Negative) Ur Leukocyte Esterase (Negative) Urine RBC (0-5) /hpf Ur Squamous Epith Cells (0-4) /hpf Urine Bacteria (None) /hpf Hyaline Casts (0-2) /lpf Urine Mucus (None) /hpf 02/26/17 02/26/17 Range/Units 06:14 11:07 RDW (11.5-15.5) % PT 18.0 H (9.0-12.0) sec Sodium 129 L (137-145) mmol/L Potassium 3.0 L* (3.5-5.1) mmol/L Chloride 89 L (98-107) mmol/L Glucose (74-99) mg/dL Calcium 8.1 L (8.4-10.2) mg/dL Magnesium (1.6-2.3) mg/dL Total Bilirubin 10.2 H (0.2-1.3) mg/dL AST 92 H (14-36) U/L ALT 62 H (9-52) U/L Alkaline Phosphatase 132 H (38-126) U/L Total Creatine Kinase (30-135) U/L CK-MB (CK-2) (0.0-2.4) ng/mL Troponin I (0.000-0.034) ng/mL Urine Appearance (Clear) Urine Protein (Negative) Urine Blood (Negative) Urine Bilirubin (Negative) Ur Leukocyte Esterase (Negative) Urine RBC (0-5) /hpf Ur Squamous Epith Cells (0-4) /hpf Urine Bacteria (None) /hpf Hyaline Casts (0-2) /lpf Urine Mucus (None) /hpf Microbiology - Last 24 Hours (Table) 02/25/17 13:20 Urine Culture - Preliminary Urine,Voided Assessment and Plan (1) Hepatitis Narrative/Plan: acute on chronic alcohol hepatitis. Status: Acute (2) Alcoholic liver disease Status: Acute (3) Elevated troponin Status: Acute (4) Coagulopathy Status: Acute Plan: 1. AFP marker. 2. Prednisone 40 mg daily 30 days for treatment of acute alcohol hepatitis as long as there is no evidence of hepatic encephalopathy. 3. Check ammonia level if within normal limits start prednisone. RTO 2 weeks. Follow up with [facility] as previously advised. 4. Supportive measures. Thank you for this kind referral and the opportunity to participate in the care of your patient. This consultation was discussed with Dr. Velazco. The impression and plan of care have been directed as dictated.
--- NOTE | 2017-02-26 13:55 | P.PN ---
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 She presented to the hospital complaining of runny nose, congestion and not feeling well. She was noted to have elevated troponin level of unclear clinical significance. Also noted to have coagulopathy and elevated liver enzymes and bilirubin. Blood Blood Cultures have been ordered. On examination this morning , patient is resting comfortably in bed. She does verbalize that she feels quite a bit better. She is having lower extremity cramping and potassium was noted to be 2.7 this morning, replacement has been ordered. We have requested medical records from [facility]. Objective - Vital Signs Vital signs: Vital Signs Temp 97.8 F 02/26/17 12:06 Pulse 108 H 02/26/17 12:06 Resp 16 02/26/17 12:06 BP 111/75 02/26/17 12:06 Pulse Ox 99 02/26/17 12:06 Intake & Output 02/25/17 02/26/17 02/26/17 18:59 06:59 18:59 Intake Total 225 1420 1307 Output Total 200 Balance 225 1420 1107 Weight 54.431 kg 57.2 kg Intake: Intake, IV Titration 225 1420 890 Amount Magnesium Sulfate-D5w Pmx 300 1 gm In Dextrose/Water 1 100ml.bag @ 100 mls/hr IVPB Q1H MICHAEL Rx#: [id number] Sodium Chloride 0.9% 1, 225 1120 840 000 ml @ 70 mls/hr IV . [id number] MICHAEL Rx#:[id number] cefTRIAXone 1,000 mg In 50 Sodium Chloride 0.9% 50 ml @ 100 mls/hr IVPB Q24HR MICHAEL Rx#:[id number] Oral 417 Output: Urine 200 Other: Voiding Method Toilet Toilet Toilet # Voids 1 - Exam PHYSICAL EXAMINATION: Patient is jaundiced HEENT: Head is atraumatic, normocephalic. Pupils equal, round. Neck is supple. There is no elevated jugular venous pressure. HEART EXAMINATION: Heart sounds regular, S1 and S2 with an early diastolic murmur as well as a systolic murmur. CHEST EXAMINATION: Lungs are clear to auscultation and precussion. No chest wall tenderness is noted on palpation or with deep breathing. ABDOMEN: Soft, nontender. Bowel sounds are heard. EXTREMITIES: 2+ peripheral pulses with no evidence of peripheral edema and no calf tenderness noted. NEUROLOGIC patient is awake, alert and oriented x3. . - Labs CBC & Chem 7: 02/26/17 06:14 02/26/17 11:07 Labs: Abnormal Lab Results - Last 24 Hours (Table) 02/25/17 02/25/17 02/25/17 Range/Units 13:20 13:54 13:54 RDW (11.5-15.5) % PT (9.0-12.0) sec Sodium 133 L (137-145) mmol/L Potassium 3.2 L (3.5-5.1) mmol/L Chloride 89 L (98-107) mmol/L Glucose 129 H (74-99) mg/dL Calcium (8.4-10.2) mg/dL Magnesium 1.2 L (1.6-2.3) mg/dL Total Bilirubin 8.2 H (0.2-1.3) mg/dL AST 118 H (14-36) U/L ALT 68 H (9-52) U/L Alkaline Phosphatase 128 H (38-126) U/L Total Creatine Kinase 407 H (30-135) U/L CK-MB (CK-2) 5.6 H* (0.0-2.4) ng/mL Troponin I 0.047 H* (0.000-0.034) ng/mL Urine Appearance Cloudy H (Clear) Urine Protein Trace H (Negative) Urine Blood Moderate H (Negative) Urine Bilirubin 2+ H (Negative) Ur Leukocyte Esterase Small H (Negative) Urine RBC 19 H (0-5) /hpf Ur Squamous Epith Cells 6 H (0-4) /hpf Urine Bacteria Many H (None) /hpf Hyaline Casts 86 H (0-2) /lpf Urine Mucus Rare H (None) /hpf 02/25/17 02/25/17 02/25/17 Range/Units 13:54 13:54 19:43 RDW 15.8 H (11.5-15.5) % PT 18.4 H (9.0-12.0) sec Sodium (137-145) mmol/L Potassium (3.5-5.1) mmol/L Chloride (98-107) mmol/L Glucose (74-99) mg/dL Calcium (8.4-10.2) mg/dL Magnesium (1.6-2.3) mg/dL Total Bilirubin (0.2-1.3) mg/dL AST (14-36) U/L ALT (9-52) U/L Alkaline Phosphatase (38-126) U/L Total Creatine Kinase 370 H (30-135) U/L CK-MB (CK-2) 4.3 H* (0.0-2.4) ng/mL Troponin I 0.043 H* (0.000-0.034) ng/mL Urine Appearance (Clear) Urine Protein (Negative) Urine Blood (Negative) Urine Bilirubin (Negative) Ur Leukocyte Esterase (Negative) Urine RBC (0-5) /hpf Ur Squamous Epith Cells (0-4) /hpf Urine Bacteria (None) /hpf Hyaline Casts (0-2) /lpf Urine Mucus (None) /hpf 02/26/17 02/26/17 02/26/17 Range/Units 01:58 06:14 06:14 RDW 15.7 H (11.5-15.5) % PT (9.0-12.0) sec Sodium 129 L (137-145) mmol/L Potassium 2.7 L* (3.5-5.1) mmol/L Chloride 89 L (98-107) mmol/L Glucose (74-99) mg/dL Calcium 7.7 L (8.4-10.2) mg/dL Magnesium (1.6-2.3) mg/dL Total Bilirubin (0.2-1.3) mg/dL AST (14-36) U/L ALT (9-52) U/L Alkaline Phosphatase (38-126) U/L Total Creatine Kinase 362 H (30-135) U/L CK-MB (CK-2) 5.6 H* (0.0-2.4) ng/mL Troponin I 0.036 H* (0.000-0.034) ng/mL Urine Appearance (Clear) Urine Protein (Negative) Urine Blood (Negative) Urine Bilirubin (Negative) Ur Leukocyte Esterase (Negative) Urine RBC (0-5) /hpf Ur Squamous Epith Cells (0-4) /hpf Urine Bacteria (None) /hpf Hyaline Casts (0-2) /lpf Urine Mucus (None) /hpf 02/26/17 02/26/17 Range/Units 06:14 11:07 RDW (11.5-15.5) % PT 18.0 H (9.0-12.0) sec Sodium 129 L (137-145) mmol/L Potassium 3.0 L* (3.5-5.1) mmol/L Chloride 89 L (98-107) mmol/L Glucose (74-99) mg/dL Calcium 8.1 L (8.4-10.2) mg/dL Magnesium (1.6-2.3) mg/dL Total Bilirubin 10.2 H (0.2-1.3) mg/dL AST 92 H (14-36) U/L ALT 62 H (9-52) U/L Alkaline Phosphatase 132 H (38-126) U/L Total Creatine Kinase (30-135) U/L CK-MB (CK-2) (0.0-2.4) ng/mL Troponin I (0.000-0.034) ng/mL Urine Appearance (Clear) Urine Protein (Negative) Urine Blood (Negative) Urine Bilirubin (Negative) Ur Leukocyte Esterase (Negative) Urine RBC (0-5) /hpf Ur Squamous Epith Cells (0-4) /hpf Urine Bacteria (None) /hpf Hyaline Casts (0-2) /lpf Urine Mucus (None) /hpf Microbiology - Last 24 Hours (Table) 02/25/17 13:20 Urine Culture - Preliminary Urine,Voided Assessment and Plan Plan: Assessment and plan #1 elevated troponin of unclear clinical significance #2 congenital heart disease, status post surgery #3 paroxysmal atrial fibrillation, maintaining sinus rhythm. #4 hepatitis, with history of EtOH abuse #5 coagulopathy From Cardiac standpoint, continue current cardiac medications. Blood cultures. A cardiogram was reviewed and showed ejection fraction of 3035%. Replace potassium. We recommend patient be transferred to [facility]. The above dictated assessment and findings were discussed with signing physician. The impression and plan of care have been directed as dictated. Marcie Kurtz, Nurse Practitioner, acting as scribe for signing physician.
[2017-02-26] MEDS ORDERED: LORazepam 2 MG/ML SYRINGE IV PRN ×2 (15:16)
[2017-02-26] MEDS ORDERED: THIAMINE 100 MG/ML 2 ML VIAL IM STA (15:16)
[2017-02-26] MEDS: METOPROLOL TARTRATE 25 MG TAB PO SCH ×2 (16:21→21:09)
[2017-02-26] MEDS: LORazepam 2 MG/ML SYRINGE IV PRN ×2 (17:09→21:40)
[2017-02-26] MEDS ORDERED: HEPARIN SODIUM,PORCINE 5,000 UNIT/ML 1 ML VIAL SQ SCH (21:00)
[2017-02-26] MEDS: LACTULOSE 20 GM/30 ML CUP PO SCH (21:08)
[2017-02-27] MEDS: LORazepam 2 MG/ML SYRINGE IV PRN ×3 (03:46→20:12)
[2017-02-27 07:15] LABS: INR 2.7 (<1.1); Prothrombin Time 26.5 sec (9.0-12.0)
[2017-02-27 07:25] LABS: ALT 67 U/L (9-52); AST 125 U/L (14-36); Alkaline Phosphatase 116 U/L (38-126); Anion Gap 18 mmol/L; Basophils % (A) 1 %; Blood Urea Nitrogen 11 mg/dL (7-17); CH 32.4; CHCM 32.4; Calcium 8.6 mg/dL (8.4-10.2); Carbon Dioxide 22 mmol/L (22-30); Chloride 88 mmol/L (98-107); Eosinophils % (A) 0 %; Glucose 60 mg/dL (74-99); HCT 41.5 % (34.0-46.0); HDW 2.98; HGB 13.4 gm/dL (11.4-16.0); Hypochromasia Slight; Luc % (Auto) 3; Lymphocytes # (A) 1.5 k/uL (1.0-4.8); Lymphocytes % (A) 22 %; MCH 32.5 pg (25.0-35.0); MCHC 32.3 g/dL (31.0-37.0); MCV 100.6 fL (80.0-100.0); Macrocytosis Slight; Magnesium 1.6 mg/dL (1.6-2.3); Mean Platelet Volume 7.8; Monocytes # (A) 0.3 k/uL (0-1.0); Monocytes % (A) 5 %; Neutrophils # (A) 4.8 k/uL (1.3-7.7); Neutrophils % (A) 70 %; Non-African American GFR(MDRD) >60 (>60 ml/min/1.73 sqM); RBC 4.12 m/uL (3.80-5.40); RDW 15.9 % (11.5-15.5); Sodium 128 mmol/L (137-145); Total Bilirubin 12.4 mg/dL (0.2-1.3); Total Protein 6.1 g/dL (6.3-8.2); WBC 6.8 k/uL (3.8-10.6); WBC (Perox) 6.85
[2017-02-27] MEDS: FUROSEMIDE 40 MG TAB PO SCH (08:58)
[2017-02-27] MEDS: LACTULOSE 20 GM/30 ML CUP PO SCH ×2 (08:58→20:10)
[2017-02-27] MEDS: LORATADINE 10 MG TAB PO SCH (08:58)
[2017-02-27] MEDS: FAMOTIDINE 20 MG TAB PO SCH ×2 (08:58→20:10)
[2017-02-27] MEDS: predniSONE 20 MG TAB PO SCH (08:58)
[2017-02-27] MEDS: METOPROLOL TARTRATE 25 MG TAB PO SCH ×2 (08:59→20:10)
[2017-02-27] MEDS: POTASSIUM CHLORIDE ER 20 MEQ TAB.ER PO SCH (08:59)
[2017-02-27] MEDS: SODIUM CHLORIDE 0.9% 1,000 ML IV SCH ×2 (09:20→17:50)
[2017-02-27] MEDS ORDERED: PHYTONADIONE ORAL 5 MG/5 ML ORAL.SYRG PO STA (10:55)
--- NOTE | 2017-02-27 11:03 | P.PN ---
Subjective Principal diagnosis: Acute on chronic alcohol hepatitis patient feeling better she denies any chest pain or dyspnea Muscle cramps have improved no nausea or vomiting no abdominal pain no urinary symptoms Objective - Vital Signs Vital signs: Vital Signs Temp 97.0 F L 02/27/17 08:00 Pulse 67 02/27/17 08:00 Resp 16 02/27/17 08:00 BP 101/60 02/27/17 08:00 Pulse Ox 96 02/27/17 03:53 Intake & Output 02/26/17 02/27/17 02/27/17 18:59 06:59 18:59 Intake Total 1307 960 200 Output Total 200 Balance 1107 960 200 Weight 58.7 kg Intake: IV 840 Sodium Chloride 0.9% 1, 840 000 ml @ 70 mls/hr IV . [id number] MICHAEL Rx#:[id number] Intake, IV Titration 890 Amount Sodium Chloride 0.9% 1, 840 000 ml @ 70 mls/hr IV . [id number] MICHAEL Rx#:[id number] cefTRIAXone 1,000 mg In 50 Sodium Chloride 0.9% 50 ml @ 100 mls/hr IVPB Q24HR MICHAEL Rx#:[id number] Oral 417 120 200 Output: Urine 200 Other: Voiding Method Toilet Toilet Toilet # Voids 1 - Exam In general patient is alert and oriented 3 in no apparent distress HEENT head normocephalic and atraumatic Neck is supple no JVD no goiter no lymphadenopathy Chest exam reveals bilateral coarse crackles no wheezing Cardiac exam reveals regular heart sounds no gallops no murmurs Abdomen is soft with mild diffuse tenderness, no organomegaly, with normal bowel sounds Extremity exam reveals no edema no cyanosis or clubbing - Labs CBC & Chem 7: 02/27/17 06:19 02/27/17 06:19 Labs: Abnormal Lab Results - Last 24 Hours (Table) 02/26/17 02/26/17 02/26/17 Range/Units 06:14 11:07 13:32 MCV (80.0-100.0) fL RDW (11.5-15.5) % PT 18.0 H (9.0-12.0) sec Sodium 129 L (137-145) mmol/L Potassium 3.0 L* (3.5-5.1) mmol/L Chloride 89 L (98-107) mmol/L Glucose (74-99) mg/dL Calcium 8.1 L (8.4-10.2) mg/dL Total Bilirubin 10.2 H (0.2-1.3) mg/dL AST 92 H (14-36) U/L ALT 62 H (9-52) U/L Alkaline Phosphatase 132 H (38-126) U/L Ammonia 41 H (<30) umol/L Total Protein (6.3-8.2) g/dL Albumin (3.5-5.0) g/dL 02/27/17 02/27/17 02/27/17 Range/Units 06:19 06:19 06:19 MCV 100.6 H (80.0-100.0) fL RDW 15.9 H (11.5-15.5) % PT 26.5 H (9.0-12.0) sec Sodium 128 L (137-145) mmol/L Potassium (3.5-5.1) mmol/L Chloride 88 L (98-107) mmol/L Glucose 60 L (74-99) mg/dL Calcium (8.4-10.2) mg/dL Total Bilirubin 12.4 H (0.2-1.3) mg/dL AST 125 H (14-36) U/L ALT 67 H (9-52) U/L Alkaline Phosphatase (38-126) U/L Ammonia (<30) umol/L Total Protein 6.1 L (6.3-8.2) g/dL Albumin 3.3 L (3.5-5.0) g/dL Microbiology - Last 24 Hours (Table) 02/26/17 06:14 Blood Culture - Preliminary Blood No Growth after 24 hours 02/25/17 13:20 Urine Culture - Preliminary Urine,Voided Gram Neg Bacilli Assessment and Plan Plan: 1. Acute on chronic alcohol hepatitis, evaluated by gastroenterology, started on prednisone 2. Severe muscle cramping in the legs and hands likely related to potassium deficiency. Showing improvement as potassium is being replaced Electrolyte imbalance with hypokalemia, hypomagnesemia and hyponatremia likely secondary to the Lasix. Patient is receiving supplements for hypokalemia and hypomagnesemia. Continue IV fluids KVO normal saline. Monitor closely. 3. Mildly elevated troponins of unclear clinical significance: Evaluated by cardiology the recommending to continue with her current medications and they will order an echo in reviewing her outpatient records 4. Hyperbilirubinemia: With mildly elevated LFTs. 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 A patient is to follow up with [facility] liver specialist in March. He shouldn't reports that she was not officially diagnosed with the cardiogenic liver cirrhosis. Hepatitis C is negative. EtOH level is less than 10. She was started on Lasix 40 mg by mouth daily by [facility] specialist 5. 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 UTI: Await urine culture. Continue Rocephin 7. History of paroxysmal atrial fibrillation 8. History of severe pulmonary hypertension 9. History of chronic systolic CHF with EF of 30-35% currently on Lasix 40 mg by mouth daily. Chest x-ray shows improving changes and pulmonary edema
--- NOTE | 2017-02-27 11:55 | P.PN ---
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 She presented to the hospital complaining of runny nose, congestion and not feeling well. She was noted to have elevated troponin level of unclear clinical significance. Also noted to have coagulopathy and elevated liver enzymes and bilirubin. Blood Blood Cultures have been ordered. On examination this morning , patient is resting comfortably in bed. X-ray values this morning showed elevation in bilirubin, AST and ALTs with improvement in alkaline phosphatase and ammonia level. Also showed INR of 2.7. Patient is being seen by GI. Objective - Vital Signs Vital signs: Vital Signs Temp 97.0 F L 02/27/17 08:00 Pulse 67 02/27/17 08:00 Resp 16 02/27/17 08:00 BP 101/60 02/27/17 08:00 Pulse Ox 96 02/27/17 03:53 Intake & Output 02/26/17 02/27/17 02/27/17 18:59 06:59 18:59 Intake Total 1307 960 200 Output Total 200 Balance 1107 960 200 Weight 58.7 kg Intake: IV 840 Sodium Chloride 0.9% 1, 840 000 ml @ 70 mls/hr IV . [id number] MICHAEL Rx#:[id number] Intake, IV Titration 890 Amount Sodium Chloride 0.9% 1, 840 000 ml @ 70 mls/hr IV . [id number] MICHAEL Rx#:[id number] cefTRIAXone 1,000 mg In 50 Sodium Chloride 0.9% 50 ml @ 100 mls/hr IVPB Q24HR MICHAEL Rx#:[id number] Oral 417 120 200 Output: Urine 200 Other: Voiding Method Toilet Toilet Toilet # Voids 1 - Exam PHYSICAL EXAMINATION: Patient is jaundiced HEENT: Head is atraumatic, normocephalic. Pupils equal, round. Neck is supple. There is no elevated jugular venous pressure. HEART EXAMINATION: Heart sounds regular, S1 and S2 with an early diastolic murmur as well as a systolic murmur. CHEST EXAMINATION: Lungs are clear to auscultation and precussion. No chest wall tenderness is noted on palpation or with deep breathing. ABDOMEN: Soft, nontender. Bowel sounds are heard. EXTREMITIES: 2+ peripheral pulses with no evidence of peripheral edema and no calf tenderness noted. NEUROLOGIC patient is awake, alert and oriented x3. . - Labs CBC & Chem 7: 02/27/17 06:19 02/27/17 06:19 Labs: Abnormal Lab Results - Last 24 Hours (Table) 02/26/17 02/26/17 02/26/17 Range/Units 06:14 11:07 13:32 MCV (80.0-100.0) fL RDW (11.5-15.5) % PT 18.0 H (9.0-12.0) sec Sodium 129 L (137-145) mmol/L Potassium 3.0 L* (3.5-5.1) mmol/L Chloride 89 L (98-107) mmol/L Glucose (74-99) mg/dL Calcium 8.1 L (8.4-10.2) mg/dL Total Bilirubin 10.2 H (0.2-1.3) mg/dL AST 92 H (14-36) U/L ALT 62 H (9-52) U/L Alkaline Phosphatase 132 H (38-126) U/L Ammonia 41 H (<30) umol/L Total Protein (6.3-8.2) g/dL Albumin (3.5-5.0) g/dL 02/27/17 02/27/17 02/27/17 Range/Units 06:19 06:19 06:19 MCV 100.6 H (80.0-100.0) fL RDW 15.9 H (11.5-15.5) % PT 26.5 H (9.0-12.0) sec Sodium 128 L (137-145) mmol/L Potassium (3.5-5.1) mmol/L Chloride 88 L (98-107) mmol/L Glucose 60 L (74-99) mg/dL Calcium (8.4-10.2) mg/dL Total Bilirubin 12.4 H (0.2-1.3) mg/dL AST 125 H (14-36) U/L ALT 67 H (9-52) U/L Alkaline Phosphatase (38-126) U/L Ammonia (<30) umol/L Total Protein 6.1 L (6.3-8.2) g/dL Albumin 3.3 L (3.5-5.0) g/dL Microbiology - Last 24 Hours (Table) 02/26/17 06:14 Blood Culture - Preliminary Blood No Growth after 24 hours 02/25/17 13:20 Urine Culture - Preliminary Urine,Voided Gram Neg Bacilli Assessment and Plan Plan: Assessment and plan #1 elevated troponin of unclear clinical significance #2 congenital heart disease, status post surgery #3 paroxysmal atrial fibrillation, maintaining sinus rhythm. #4 hepatitis, with history of EtOH abuse #5 coagulopathy From Cardiac standpoint, continue current cardiac medications. We'll continue to follow that the patient during this admission. Patient's prognosis remains guarded due to alcohol related liver disease. Upon discharge she'll follow-up with her physicians at [facility]. The above dictated assessment and findings were discussed with signing physician. The impression and plan of care have been directed as dictated. Marcie Kurtz, Nurse Practitioner, acting as scribe for signing physician.
[2017-02-27] MEDS: MULTIVITAMINS, THERA 1 EACH TAB PO SCH (13:13)
[2017-02-27] MEDS: FOLIC ACID 1 MG TAB PO SCH (13:13)
[2017-02-27] MEDS: THIAMINE 100 MG TAB PO SCH (13:13)
[2017-02-28] MEDS: LORazepam 2 MG/ML SYRINGE IV PRN ×2 (01:02→20:32)
[2017-02-28 06:34] LABS: Anisocytosis Slight; Basophils # (A) 0.1 k/uL (0-0.2); Basophils % (A) 1 %; CH 32.3; CHCM 31.6; Eosinophils % (A) 0 %; HCT 43.3 % (34.0-46.0); HDW 2.75; Hypochromasia Slight; Luc # (Auto) 0.23; Luc % (Auto) 2; Lymphocytes # (A) 1.2 k/uL (1.0-4.8); Lymphocytes % (A) 11 %; MCH 33.1 pg (25.0-35.0); MCHC 32.2 g/dL (31.0-37.0); MCV 102.9 fL (80.0-100.0); Macrocytosis Moderate; Mean Platelet Volume 8.2; Monocytes # (A) 0.9 k/uL (0-1.0); Monocytes % (A) 9 %; Neutrophils # (A) 7.8 k/uL (1.3-7.7); Neutrophils % (A) 77 %; RBC 4.21 m/uL (3.80-5.40); RDW 16.2 % (11.5-15.5); WBC 10.1 k/uL (3.8-10.6)
[2017-02-28 06:46] LABS: INR 2.9 (<1.1); Prothrombin Time 27.8 sec (9.0-12.0)
[2017-02-28 06:47] LABS: ALT 80 U/L (9-52); AST 158 U/L (14-36); Alkaline Phosphatase 120 U/L (38-126); Anion Gap 16 mmol/L; Blood Urea Nitrogen 15 mg/dL (7-17); Calcium 9.2 mg/dL (8.4-10.2); Carbon Dioxide 23 mmol/L (22-30); Chloride 91 mmol/L (98-107); Non-African American GFR(MDRD) >60 (>60 ml/min/1.73 sqM); Potassium 4.1 mmol/L (3.5-5.1); Sodium 130 mmol/L (137-145); Total Bilirubin 12.3 mg/dL (0.2-1.3)
[2017-02-28 06:55] LABS: Glucose 103 mg/dL (74-99)
[2017-02-28] MEDS: POTASSIUM CHLORIDE ER 20 MEQ TAB.ER PO SCH (08:12)
[2017-02-28] MEDS: LORATADINE 10 MG TAB PO SCH (08:12)
[2017-02-28] MEDS: FUROSEMIDE 40 MG TAB PO SCH (08:12)
[2017-02-28] MEDS: METOPROLOL TARTRATE 25 MG TAB PO SCH ×2 (08:12→20:32)
[2017-02-28] MEDS: predniSONE 20 MG TAB PO SCH (08:12)
[2017-02-28] MEDS: FAMOTIDINE 20 MG TAB PO SCH ×2 (08:12→20:33)
[2017-02-28] MEDS: LEVOFLOXACIN 500MG-D5W PMX 500 MG in DEXTROSE/WATER 1 100ML.BAG IVPB SCH (08:54)
--- NOTE | 2017-02-28 09:30 | P.PN ---
Subjective Principal diagnosis: Acute on chronic alcohol hepatitis patient feeling better she denies any chest pain or dyspnea Muscle cramps have improved no nausea or vomiting no abdominal pain no urinary symptoms Jaundice has worsened Urine culture was positive for ESBL Klebsiella pneumonia Objective - Vital Signs Vital signs: Vital Signs Temp 97.5 F L 02/28/17 08:00 Pulse 106 H 02/28/17 08:00 Resp 18 02/28/17 08:00 BP 101/74 02/28/17 08:00 Pulse Ox 96 02/28/17 08:00 Intake & Output 02/27/17 02/28/17 02/28/17 18:59 06:59 18:59 Intake Total 636 160 200 Output Total 2 Balance 636 158 200 Weight 58.3 kg Intake: IV 160 Sodium Chloride 0.9% 1, 160 000 ml @ 20 mls/hr IV . Q24H [facility] Rx#:[id number] Oral 636 200 Output: Urine 2 Other: Voiding Method Toilet Toilet Toilet # Voids 2 1 - Exam In general patient is alert and oriented 3 in no apparent distress HEENT head normocephalic and atraumatic Neck is supple no JVD no goiter no lymphadenopathy Chest exam reveals bilateral coarse crackles no wheezing Cardiac exam reveals regular heart sounds no gallops no murmurs Abdomen is soft with mild diffuse tenderness, no organomegaly, with normal bowel sounds Extremity exam reveals no edema no cyanosis or clubbing - Labs CBC & Chem 7: 02/28/17 05:55 02/28/17 05:55 Labs: Abnormal Lab Results - Last 24 Hours (Table) 02/28/17 02/28/17 02/28/17 Range/Units 05:55 05:55 05:55 MCV 102.9 H (80.0-100.0) fL RDW 16.2 H (11.5-15.5) % Neutrophils # 7.8 H (1.3-7.7) k/uL PT 27.8 H (9.0-12.0) sec Sodium 130 L (137-145) mmol/L Chloride 91 L (98-107) mmol/L Glucose 103 H (74-99) mg/dL Total Bilirubin 12.3 H (0.2-1.3) mg/dL AST 158 H (14-36) U/L ALT 80 H (9-52) U/L Total Protein 6.0 L (6.3-8.2) g/dL Albumin 3.4 L (3.5-5.0) g/dL Microbiology - Last 24 Hours (Table) 02/25/17 13:20 Urine Culture - Final Urine,Voided Klebsiella pneumoniae 02/26/17 06:14 Blood Culture Gram Stain - Preliminary Blood 02/26/17 06:14 Blood Culture - Preliminary Blood Assessment and Plan Plan: 1. Acute on chronic alcohol hepatitis, evaluated by gastroenterology, started on prednisone, patient has elevated liver enzymes and elevated bilirubin 2. Severe muscle cramping in the legs and hands likely related to potassium deficiency. Showing improvement as potassium is being replaced Electrolyte imbalance with hypokalemia, hypomagnesemia and hyponatremia likely secondary to the Lasix. Patient is receiving supplements for hypokalemia and hypomagnesemia. Continue IV fluids KVO normal saline. Monitor closely. 3. Mildly elevated troponins of unclear clinical significance: Evaluated by cardiology the recommending to continue with her current medications and they will order an echo in reviewing her outpatient records 4. Hyperbilirubinemia: With mildly elevated LFTs. 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 A patient is to follow up with [facility] liver specialist in March. He shouldn't reports that she was not officially diagnosed with the cardiogenic liver cirrhosis. Hepatitis C is negative. EtOH level is less than 10. She was started on Lasix 40 mg by mouth daily by [facility] specialist 5. 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 UTI: Urine culture positive for ESBL Klebsiella pneumonia, blood culture is also positive, at this time patient was switched to Levaquin and I will add ertapenem, consultation for Dr. Tillman was initiated 7. History of paroxysmal atrial fibrillation 8. History of severe pulmonary hypertension 9. History of chronic systolic CHF with EF of 30-35% currently on Lasix 40 mg by mouth daily. Chest x-ray shows improving changes and pulmonary edema
[2017-02-28] MEDS: ERTAPENEM 1 GM in SODIUM CHLORIDE 0.9% 50 ML IVPB SCH (10:31)
[2017-02-28] MEDS: MULTIVITAMINS, THERA 1 EACH TAB PO SCH (11:23)
[2017-02-28] MEDS: FOLIC ACID 1 MG TAB PO SCH (11:23)
[2017-02-28] MEDS: THIAMINE 100 MG TAB PO SCH (11:23)
--- NOTE | 2017-02-28 17:48 | P.CONS ---
History of Present Illness - Reason for Consult Consult date: 02/28/17 - Chief Complaint Generalized weakness and cramps - History of Present Illness 31-year-old female presents to Hospital feeling poorly. She has a known history of alcoholism. She has been seen by gastroenterology and is on evidence of an acute on chronic alcoholic hepatitis which has worsened acutely. 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 She's had recent multiple interventions including evaluation at [facility] for cardiogenic liver disease she's been treated with Lasix with some improvement but now has the increasing weakness and muscle cramps. She had some outpatient illness and despite his azithromycin did not have improvement in presents to the emergency center. She did have low magnesium and potassium are being supplemented. It is noted to have markedly elevated transaminases and bilirubin. And concerns for urinary tract infection and ID consult was requested. The patient relates that she's feeling better but still very ill. Review of Systems HEENT:Denies headache or acute visual change. Denies sinus or mouth discomforts. Denies neck stiffness or pain. Denies significant oral cavity pain. Denies difficulty on swallowing. Lungs: Denies significant shortness of breath, cough, sputum production, or hemoptysis. Cardiovascular: Denies significant shortness of breath, chest pain, chest wall pain, orthopnea, dyspnea on exertion, syncope Gastrointestinal:Denies nausea, vomiting, diarrhea, constipation, hematemesis, melena, hematochezia. No no significant change of bowel habit noticed. Antoine jaundice Musculoskeletal: Muscle cramps and myalgias improving Skin: Denies new rash or lesions. No new ulcers or wounds are related.. Neuro: Denies headache or visual change. Denies any new onset weakness or difficulty with ambulation. Denies falls or seizures. Psychiatric: Chronic anxiety and depression Endocrine: Significant fatigue and some weight gain. 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 History of Any Multi-Drug Resistant Organisms: None Reported Additional Past Surgical History / Comment(s): open heart surg for transposition of great arteries, CARDIOVERTED FOR A- FIB Past Psychological History: No Psychological Hx Reported, Anxiety Additional Psychological History / Comment(s): Single, lives with family. Tobacco use. Denies injection drug use or other current recreational drug use. Is not working. No experience due to her medical condition. Heavy alcohol use including recent CIWA protocol and progress. No animal exposures Smoking Status: Former smoker Past Alcohol Use History: Rare Past Drug Use History: None Reported - Past Family History Mother Family Medical History: No Reported History Father Family Medical History: No Reported History Medications and Allergies Home Medications and Allergies Comment(s): Current Medications Alprazolam (Xanax) 0.25 mg PO QID PRN PRN Reason: Anxiety Last Admin: 02/26/17 14:02 Dose: 0.25 mg Famotidine (Pepcid) 20 mg PO BID [facility] Last Admin: 02/28/17 08:12 Dose: 20 mg Folic Acid (Folic Acid) 1 mg PO DAILY@1200 [facility] Last Admin: 02/28/17 11:23 Dose: 1 mg Furosemide (Lasix) 40 mg PO DAILY [facility] Last Admin: 02/28/17 08:12 Dose: 40 mg Sodium Chloride (Saline 0.9%) 1,000 mls @ 20 mls/hr IV .Q24H [facility] Last Admin: 02/27/17 17:50 Dose: 20 mls/hr Levofloxacin 500 mg/ IV (Solution) 100 mls @ 100 mls/hr IVPB Q24H [facility] Last Admin: 02/28/17 08:54 Dose: 100 mls/hr Ertapenem 1 gm/ Sodium (Chloride) 50 mls @ 100 mls/hr IVPB DAILY [facility] Last Admin: 02/28/17 10:31 Dose: 100 mls/hr Loratadine (Claritin) 10 mg PO DAILY [facility] Last Admin: 02/28/17 08:12 Dose: 10 mg Lorazepam (Ativan) 1 mg IV Q2HR PRN PRN Reason: CIWA 8 or 9 Last Admin: 02/28/17 01:02 Dose: 1 mg Lorazepam (Ativan) 1 mg IV Q1HR PRN PRN Reason: CIWA 10 to 15 Lorazepam (Ativan) 2 mg IV Q1HR PRN PRN Reason: CIWA 16 or higher Metoprolol Tartrate (Lopressor) 25 mg PO BID [facility] Last Admin: 02/28/17 08:12 Dose: 25 mg Miscellaneous Information (Magnesium Per Protocol) 1 each MISCELLANE DAILY PRN ; Protocol PRN Reason: Per Protocol Multivitamins (Theragran) 1 each PO DAILY@1200 [facility] Last Admin: 02/28/17 11:23 Dose: 1 each Naloxone HCl (Narcan) 0.2 mg IV Q2M PRN PRN Reason: Opioid Reversal Potassium Chloride (K-Dur 20) 20 meq PO DAILY [facility] Last Admin: 02/28/17 08:12 Dose: 20 meq Prednisone () 40 mg PO DAILY [facility] Last Admin: 02/28/17 08:12 Dose: 40 mg Prochlorperazine Maleate (Compazine) 5 mg PO Q8HR PRN PRN Reason: Nausea And Vomiting Last Admin: 02/26/17 21:09 Dose: 5 mg Thiamine HCl (Vitamin B-1) 100 mg PO DAILY@1200 [facility] Last Admin: 02/28/17 11:23 Dose: 100 mg Home Medications Medication Instructions Recorded Confirmed Type Azithromycin [Zithromax Z-pack] See Taper PO DIRECTED 02/25/17 02/25/17 History Cetirizine HCl [Zyrtec] 10 mg PO DAILY 02/25/17 02/25/17 History Furosemide [Lasix] 40 mg PO DAILY 02/25/17 02/25/17 History Metoprolol Succinate (ER) [Toprol 25 mg PO DAILY 02/25/17 02/25/17 History Xl] Allergies Allergy/AdvReac Type Severity Reaction Status Date / Time No Known Allergies Allergy Verified 02/25/17 14:25 Physical Exam Vitals: Vital Signs Temp Pulse Resp BP Pulse Ox 02/28/17 16:00 24 02/28/17 15:00 97.2 F L 104 H 24 87/57 92 L 02/28/17 11:15 96.8 F L 108 H 16 137/50 99 02/28/17 10:55 106 H 18 02/28/17 08:00 97.5 F L 106 H 18 101/74 96 02/28/17 04:00 97.7 F 105 H 16 100/70 97 02/28/17 00:00 91 16 99/64 98 02/27/17 20:00 97.6 F 80 16 104/58 97 Intake and Output 02/28/17 02/28/17 02/28/17 06:59 14:59 22:59 Intake Total 160 690 Output Total 2 350 Balance 158 340 Intake: IV 160 240 Sodium Chloride 0.9% 1, 160 240 000 ml @ 20 mls/hr IV . Q24H [facility] Rx#:[id number] Intake, IV Titration 150 Amount Ertapenem 1 gm In Sodium 50 Chloride 0.9% 50 ml @ 100 mls/hr IVPB DAILY [facility] Rx #:[id number] Levofloxacin 500Mg-D5w 100 Pmx 500 mg In Dextrose/ Water 1 100ml.bag @ 100 mls/hr IVPB Q24H [facility] Rx#: [id number] Oral 300 Output: Urine 2 350 Other: Voiding Method Toilet Toilet Toilet # Voids 1 Weight 58.3 kg Grossly jaundiced 31-year-old woman is comfortable HEENT: Anicteric conjunctiva are moist nasal mucosa grossly intact without significant lesions, there is no thrush. Neck: The neck is supple without significant lymphadenopathy or thyromegaly. Lungs: Good bilateral air entry without significant crackles or wheezing. There is no significant bronchial sounds. There is no egophony or dullness. Heart: Regular rate and rhythm with an audible S1-S2, no S3 no S4. There is no significant murmur click or rub, PMI was nondisplaced. Abdomen: Positive bowel sounds soft and nontender without palpable masses or organomegaly. There was no guarding or rebound. Extremities: The upper extremities have excellent pulses they are symmetric, no significant petechiae or telangiectasia. No splinter hemorrhages were noted. The lower extremities are free from significant edema. The peripheral pulses were 2+ and symmetric. Neuro: Awake alert oriented to person place and time. There are no acute new gross focal sensory motor deficits. Is mildly slow on her mentation Skin is grossly jaundiced Results CBC & Chem 7: 02/28/17 05:55 02/28/17 05:55 Labs: Abnormal Lab Results - Last 24 Hours (Table) 02/28/17 02/28/17 02/28/17 Range/Units 05:55 05:55 05:55 MCV 102.9 H (80.0-100.0) fL RDW 16.2 H (11.5-15.5) % Neutrophils # 7.8 H (1.3-7.7) k/uL PT 27.8 H (9.0-12.0) sec Sodium 130 L (137-145) mmol/L Chloride 91 L (98-107) mmol/L Glucose 103 H (74-99) mg/dL Total Bilirubin 12.3 H (0.2-1.3) mg/dL AST 158 H (14-36) U/L ALT 80 H (9-52) U/L Total Protein 6.0 L (6.3-8.2) g/dL Albumin 3.4 L (3.5-5.0) g/dL Microbiology - Last 24 Hours (Table) 02/26/17 06:14 Blood Culture Gram Stain - Preliminary Blood 02/25/17 13:20 Urine Culture - Final Urine,Voided Klebsiella pneumoniae 02/26/17 06:14 Blood Culture - Preliminary Blood Laboratory Results WBC 10.1 k/uL (3.8-10.6) 02/28/17 05:55 RBC 4.21 m/uL (3.80-5.40) 02/28/17 05:55 Hgb 14.0 gm/dL (11.4-16.0) 02/28/17 05:55 Hct 43.3 % (34.0-46.0) 02/28/17 05:55 MCV 102.9 fL (80.0-100.0) H 02/28/17 05:55 MCH 33.1 pg (25.0-35.0) 02/28/17 05:55 MCHC 32.2 g/dL (31.0-37.0) 02/28/17 05:55 RDW 16.2 % (11.5-15.5) H 02/28/17 05:55 Plt Count 226 k/uL (150-450) 02/28/17 05:55 Neutrophils % 77 % 02/28/17 05:55 Neutrophils % (Manual) 62.0 % 02/26/17 06:14 Band Neutrophils % Not Reportable 02/26/17 06:14 Lymphocytes % 11 % 02/28/17 05:55 Lymphocytes % (Manual) 30.0 % 02/26/17 06:14 Monocytes % 9 % 02/28/17 05:55 Monocytes % (Manual) 8.0 % 02/26/17 06:14 Eosinophils % 0 % 02/28/17 05:55 Basophils % 1 % 02/28/17 05:55 Neutrophils # 7.8 k/uL (1.3-7.7) H 02/28/17 05:55 Neutrophils # (Manual) 3.0 k/uL (1.3-7.7) 02/26/17 06:14 Lymphocytes # 1.2 k/uL (1.0-4.8) 02/28/17 05:55 Lymphocytes # (Manual) 1.4 k/uL (1.0-4.8) 02/26/17 06:14 Monocytes # 0.9 k/uL (0-1.0) 02/28/17 05:55 Monocytes # (Manual) 0.4 k/uL (0-1.0) 02/26/17 06:14 Eosinophils # 0.0 k/uL (0-0.7) 02/28/17 05:55 Basophils # 0.1 k/uL (0-0.2) 02/28/17 05:55 Nucleated RBCs 0 /100 WBC (0-0) 02/26/17 06:14 Plasma Cells % Not Reportable 02/26/17 06:14 Polychromasia Present 02/26/17 06:14 Hypochromasia Slight 02/28/17 05:55 Poikilocytosis (manual Present 02/26/17 06:14 Anisocytosis Slight 02/28/17 05:55 Anisocytosis (manual) Present 02/26/17 06:14 Macrocytosis Moderate 02/28/17 05:55 Target Cells Present 02/26/17 06:14 PT 27.8 sec (9.0-12.0) H 02/28/17 05:55 INR 2.9 (<1.1) 02/28/17 05:55 APTT 26.3 sec (22.0-30.0) 02/25/17 13:54 Sodium 130 mmol/L (137-145) L 02/28/17 05:55 Potassium 4.1 mmol/L (3.5-5.1) 02/28/17 05:55 Chloride 91 mmol/L (98-107) L 02/28/17 05:55 Carbon Dioxide 23 mmol/L (22-30) 02/28/17 05:55 Anion Gap 16 mmol/L 02/28/17 05:55 BUN 15 mg/dL (7-17) 02/28/17 05:55 Creatinine 1.00 mg/dL (0.52-1.04) 02/28/17 05:55 Est GFR (MDRD) Af Amer >60 (>60 ml/min/1.73 sqM) 02/28/17 05:55 Est GFR (MDRD) Non-Af >60 (>60 ml/min/1.73 sqM) 02/28/17 05:55 Glucose 103 mg/dL (74-99) H 02/28/17 05:55 Calcium 9.2 mg/dL (8.4-10.2) 02/28/17 05:55 Phosphorus 2.5 mg/dL (2.5-4.5) 02/25/17 13:54 Magnesium 1.6 mg/dL (1.6-2.3) 02/27/17 06:19 Total Bilirubin 12.3 mg/dL (0.2-1.3) H 02/28/17 05:55 AST 158 U/L (14-36) H 02/28/17 05:55 ALT 80 U/L (9-52) H 02/28/17 05:55 Alkaline Phosphatase 120 U/L (38-126) 02/28/17 05:55 Ammonia 23 umol/L (<30) 02/28/17 05:55 Total Creatine Kinase 362 U/L (30-135) H 02/26/17 01:58 CK-MB (CK-2) 5.6 ng/mL (0.0-2.4) H* 02/26/17 01:58 CK-MB (CK-2) Rel Index 1.5 02/26/17 01:58 Troponin I 0.036 ng/mL (0.000-0.034) H* 02/26/17 01:58 NT-Pro-B Natriuret Pep 3750 pg/mL 02/25/17 13:54 Total Protein 6.0 g/dL (6.3-8.2) L 02/28/17 05:55 Albumin 3.4 g/dL (3.5-5.0) L 02/28/17 05:55 Tumor Marker AFP 3.5 ng/mL (0.0-7.9) 02/27/17 06:19 TSH 4.030 mIU/L (0.465-4.680) 02/25/17 13:54 Urine Color G[place] 02/25/17 13:20 Urine Appearance Cloudy (Clear) H 02/25/17 13:20 Urine pH 5.5 (5.0-8.0) 02/25/17 13:20 Ur Specific [place] 1.013 (1.001-1.035) 02/25/17 13:20 Urine Protein Trace (Negative) H 02/25/17 13:20 Urine Glucose (UA) Negative (Negative) 02/25/17 13:20 Urine Ketones Negative (Negative) 02/25/17 13:20 Urine Blood Moderate (Negative) H 02/25/17 13:20 Urine Nitrite Negative (Negative) 02/25/17 13:20 Urine Bilirubin 2+ (Negative) H 02/25/17 13:20 Urine Urobilinogen 4.0 mg/dL (<2.0) 02/25/17 13:20 Ur Leukocyte Esterase Small (Negative) H 02/25/17 13:20 Urine RBC 19 /hpf (0-5) H 02/25/17 13:20 Urine WBC 5 /hpf (0-5) 02/25/17 13:20 Ur Squamous Epith Cells 6 /hpf (0-4) H 02/25/17 13:20 Urine Bacteria Many /hpf (None) H 02/25/17 13:20 Hyaline Casts 86 /lpf (0-2) H 02/25/17 13:20 Urine Mucus Rare /hpf (None) H 02/25/17 13:20 Serum Alcohol <10 mg/dL 02/25/17 13:54 Hep C IgG Ab Negative (Negative) 02/25/17 13:54 Microbiology 02/26/17 06:14 Blood Blood Culture Gram Stain - Preliminary 02/25/17 13:20 Urine,Voided Urine Culture - Final Klebsiella pneumoniae 02/26/17 06:14 Blood Blood Culture - Preliminary Assessment and Plan (1) Urinary tract infection Status: Acute (2) Alcoholic liver disease Status: Acute (3) Jaundice Status: Acute (4) Infection due to ESBL-producing Klebsiella pneumoniae Narrative/Plan: 31-year-old female presents to Hospital feeling poorly. Did have metabolic abnormalities with hypokalemia and hypomagnesemia. With this correction she's feeling somewhat better. She however still does not feel well overall. She did have some urine symptoms and urine culture shows evidence of an ESBL Klebsiella pneumoniae. Antibiotic therapy with ertapenem has been initiated.. She does not have significant ALLERGIES and discharge fortunately will be the option of several oral antibiotics to complete her course of therapy. Of note she has positive blood cultures with gram-positive bacilli, highly likely to be a contamination. This is not the same pathogen of her urine in likely is a corynebacterium. Follow blood culture is requested. She's been seen by gastroenterology. Suggested transfer to [facility] liver program she declined at this time. She is in the CIWA protocol and social service consult has been requested. Status: Acute
[2017-02-28] MEDS: SODIUM CHLORIDE 0.9% 1,000 ML IV SCH (20:35)
[2017-03-01 07:57] LABS: Basophils % (A) 0 %; CH 31.9; CHCM 31.9; Eosinophils % (A) 0 %; HCT 44.4 % (34.0-46.0); HDW 2.85; HGB 14.4 gm/dL (11.4-16.0); Hypochromasia Slight; Luc % (Auto) 3; Lymphocytes # (A) 1.4 k/uL (1.0-4.8); Lymphocytes % (A) 12 %; MCH 32.6 pg (25.0-35.0); MCHC 32.4 g/dL (31.0-37.0); MCV 100.4 fL (80.0-100.0); Macrocytosis Slight; Mean Platelet Volume 8.4; Monocytes # (A) 0.8 k/uL (0-1.0); Monocytes % (A) 7 %; Neutrophils # (A) 9.4 k/uL (1.3-7.7); Neutrophils % (A) 79 %; RBC 4.42 m/uL (3.80-5.40); RDW 15.8 % (11.5-15.5); WBC 11.9 k/uL (3.8-10.6); WBC (Perox) 12.26
[2017-03-01 08:08] LABS: INR 2.9 (<1.1); Prothrombin Time 27.6 sec (9.0-12.0)
[2017-03-01] MEDS: FAMOTIDINE 20 MG TAB PO SCH ×2 (08:11→20:23)
[2017-03-01] MEDS: LORATADINE 10 MG TAB PO SCH (08:12)
[2017-03-01] MEDS: POTASSIUM CHLORIDE ER 20 MEQ TAB.ER PO SCH (08:12)
[2017-03-01] MEDS: FUROSEMIDE 40 MG TAB PO SCH (08:12)
[2017-03-01] MEDS: predniSONE 20 MG TAB PO SCH (08:13)
[2017-03-01] MEDS: METOPROLOL TARTRATE 25 MG TAB PO SCH ×2 (08:13→20:23)
[2017-03-01] MEDS: ERTAPENEM 1 GM in SODIUM CHLORIDE 0.9% 50 ML IVPB SCH (08:14)
[2017-03-01 08:18] LABS: HCV Qualitative Result Not detected (Not detected)
[2017-03-01 08:43] LABS: ALT 95 U/L (9-52); AST 202 U/L (14-36); Alkaline Phosphatase 124 U/L (38-126); Anion Gap 13 mmol/L; Blood Urea Nitrogen 19 mg/dL (7-17); Calcium 8.9 mg/dL (8.4-10.2); Carbon Dioxide 28 mmol/L (22-30); Chloride 92 mmol/L (98-107); Glucose 79 mg/dL (74-99); Non-African American GFR(MDRD) >60 (>60 ml/min/1.73 sqM); Sodium 133 mmol/L (137-145); Total Bilirubin 12.9 mg/dL (0.2-1.3); Total Protein 6.5 g/dL (6.3-8.2)
[2017-03-01] MEDS: LEVOFLOXACIN 500MG-D5W PMX 500 MG in DEXTROSE/WATER 1 100ML.BAG IVPB SCH (09:53)
[2017-03-01] MEDS ORDERED: MAGNESIUM SULFATE-D5W PMX 1 GM in DEXTROSE/WATER 1 100ML.BAG IVPB ONE (12:00)
--- NOTE | 2017-03-01 12:37 | P.PN ---
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 She also had a recent transfer to [facility] in regards to possible cardiogenic liver cirrhosis. Patient reports that she was not diagnosed by [facility] with this diagnosis. However they did start her on Lasix 40 mg by mouth daily. Patient was found to have electrolyte imbalance with a low potassium and low magnesium. These have been replaced. Muscle cramping has improved. Patient is followed by infectious disease in regards to UTI. She is also followed by GI service in regards to her acute on chronic alcoholic hepatitis. She also had elevated ammonia level was given lactulose. Ammonia level has improved. GI service had started her on prednisone. Her total bili is up to 12.9 and there is increase in her liver numbers. GI service will be renotified to reevaluate patient. Patient reports she is feeling better and is wants to be discharged home. She is still refusing to be transferred to [facility] or other tertiary care facility such as [facility]. She wants a follow -up with her [facility] specialist on Wednesday. Patient denies any chest pain or shortness of breath. Denies any nausea or vomiting. Reports having bowel movements. Currently off the lactulose. Denies any difficulty urinating. Objective - Vital Signs Vital signs: Vital Signs Temp 96.0 F L 03/01/17 07:00 Pulse 111 H 03/01/17 08:00 Resp 20 03/01/17 08:00 BP 99/72 03/01/17 07:00 Pulse Ox 94 L 03/01/17 07:51 Intake & Output 02/28/17 03/01/17 03/01/17 18:59 06:59 18:59 Intake Total 690 160 Output Total 350 Balance 340 160 Weight 55.5 kg Intake: IV 240 160 Sodium Chloride 0.9% 1, 240 160 000 ml @ 20 mls/hr IV . Q24H [facility] Rx#:[id number] Intake, IV Titration 150 Amount Ertapenem 1 gm In Sodium 50 Chloride 0.9% 50 ml @ 100 mls/hr IVPB DAILY [facility] Rx #:[id number] Levofloxacin 500Mg-D5w 100 Pmx 500 mg In Dextrose/ Water 1 100ml.bag @ 100 mls/hr IVPB Q24H [facility] Rx#: [id number] Oral 300 Output: Urine 350 Other: Voiding Method Toilet Toilet Toilet # Voids 1 1 1 - Exam HEENT scleral icterus Head normocephalic Neck supple Lungs clear to auscultation bilaterally no wheezing or crackles Heart regular rate and rhythm S1-S2, no rub or gallop Abdomen is soft nontender nondistended positive bowel sounds no hepatosplenomegaly Extremities no edema Neuro alert and orientated to 3 - Labs CBC & Chem 7: 03/01/17 07:23 03/01/17 07:23 Labs: Abnormal Lab Results - Last 24 Hours (Table) 03/01/17 03/01/17 03/01/17 Range/Units 07:23 07:23 07:23 WBC 11.9 H (3.8-10.6) k/uL MCV 100.4 H (80.0-100.0) fL RDW 15.8 H (11.5-15.5) % Neutrophils # 9.4 H (1.3-7.7) k/uL PT 27.6 H (9.0-12.0) sec Sodium 133 L (137-145) mmol/L Chloride 92 L (98-107) mmol/L BUN 19 H (7-17) mg/dL Total Bilirubin 12.9 H (0.2-1.3) mg/dL AST 202 H (14-36) U/L ALT 95 H (9-52) U/L Microbiology - Last 24 Hours (Table) 02/26/17 06:14 Blood Culture Gram Stain - Final Blood Blood Culture - Final Diphtheroid species 02/25/17 13:20 Urine Culture - Final Urine,Voided Klebsiella pneumoniae Assessment and Plan Plan: 1. Severe muscle cramping in the legs and hands likely related to potassium deficiency. Potassium has been replaced. 2. Electrolyte imbalance with hypokalemia, hypomagnesemia and hyponatremia likely secondary to the Lasix. Patient is receiving supplements for hypokalemia and hypomagnesemia. Continue IV fluids KVO normal saline. Monitor closely. 3. Mildly elevated troponins of unclear clinical significance: Evaluated by cardiology. They have signed off. 4. Acute on chronic alcoholic hepatitis: GI service started patient on prednisone. Continue with the CIWA protocol. Patient has had an increase in her liver enzymes and total bilirubin has increased to 12.9 even after being on the prednisone for a couple of days. GI service will be renotified and will reevaluate patient today. Patient has been educated thoroughly to refrain from any alcohol use 5. 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 UTI: Urine culture growing ESBL Klebsiella pneumonia . Continue the Invanz. Infectious disease following 7. History of paroxysmal atrial fibrillation 8. History of severe pulmonary hypertension 9. History of chronic systolic CHF with EF of 30-35% currently on Lasix 40 mg by mouth daily. Chest x-ray shows improving changes and pulmonary edema 10. Coagulopathy secondary to her liver disease. Monitor daily PT/INR's 11. One positive blood culture with diphtheroid species. We'll evaluate evaluation per infectious disease 12. Elevated ammonia level has now normalized. Currently off of lactulose. 13. Hypomagnesemia: Magnesium 1.8. Make patient will receive magnesium supplement. Repeat magnesium level in a.m. GI prophylaxis Pepcid and DVT prophylaxis SCDs Patient has been notified that her liver studies are worsening. She has declined transfer to tertiary care center. She reports she will follow-up with her GI specialist out of [facility] on Wednesday. They were able to move that appointment up from March to the end of this week. Patient will be reevaluated by our GI service today. I performed an examination of the patient and discussed their management with the physician Dental Director. I have reviewed the Physician Dental Director's notes and agree with the documented findings and plan of care
[2017-03-01] MEDS: MULTIVITAMINS, THERA 1 EACH TAB PO SCH (13:06)
[2017-03-01] MEDS: FOLIC ACID 1 MG TAB PO SCH (13:06)
[2017-03-01] MEDS: THIAMINE 100 MG TAB PO SCH (13:07)
[2017-03-01] MEDS: ALPRAZolam 0.25 MG TAB PO PRN (13:40)
[2017-03-01] MEDS: SODIUM CHLORIDE 0.9% 1,000 ML IV SCH (18:12)
[2017-03-01] MEDS: LORazepam 2 MG/ML SYRINGE IV PRN (20:29)
--- NOTE | 2017-03-01 21:02 | P.PN ---
Subjective Principal diagnosis: UTI 31-year-old female presents to Hospital feeling poorly. She has a known history of alcoholism. She has been seen by gastroenterology and is on evidence of an acute on chronic alcoholic hepatitis which has worsened acutely. 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 She's had recent multiple interventions including evaluation at [facility] for cardiogenic liver disease she's been treated with Lasix with some improvement but now has the increasing weakness and muscle cramps. She had some outpatient illness and despite his azithromycin did not have improvement in presents to the emergency center. She did have low magnesium and potassium are being supplemented. It is noted to have markedly elevated transaminases and bilirubin. And concerns for urinary tract infection and ID consult was requested. The patient relates that she's feeling better but still very ill. Patient's mother is present. Questions are answered. Especially to the underlying liver disease. The mother is somewhat perplexed. When she was young she drank a lot but doesn't have liver disease like her daughter. We discussed that underlying cardiovascular disease and her different genetics make it difficult to know exactly what will happen. Objective - Vital Signs Vital signs: Vital Signs Temp 96.7 F L 03/01/17 14:35 Pulse 112 H 03/01/17 14:35 Resp 18 03/01/17 14:35 BP 96/69 03/01/17 14:35 Pulse Ox 92 L 03/01/17 14:35 Intake & Output 03/01/17 03/01/17 03/02/17 06:59 18:59 06:59 Intake Total 160 360 Balance 160 360 Weight 55.5 kg Intake: IV 160 160 Sodium Chloride 0.9% 1, 160 160 000 ml @ 20 mls/hr IV . Q24H [facility] Rx#:[id number] Intake, IV Titration 200 Amount Ertapenem 1 gm In Sodium 100 Chloride 0.9% 50 ml @ 100 mls/hr IVPB DAILY [facility] Rx #:[id number] Magnesium Sulfate-D5w Pmx 100 1 gm In Dextrose/Water 1 100ml.bag @ 100 mls/hr IVPB ONCE ONE Rx#: [id number] Other: Voiding Method Toilet Toilet # Voids 1 1 - Exam Grossly jaundiced 31-year-old woman is comfortable HEENT: Anicteric conjunctiva are moist nasal mucosa grossly intact without significant lesions, there is no thrush. Neck: The neck is supple without significant lymphadenopathy or thyromegaly. Lungs: Good bilateral air entry without significant crackles or wheezing. There is no significant bronchial sounds. There is no egophony or dullness. Heart: Regular rate and rhythm with an audible S1-S2, no S3 no S4. There is no significant murmur click or rub, PMI was nondisplaced. Abdomen: Positive bowel sounds soft and nontender without palpable masses or organomegaly. There was no guarding or rebound. Extremities: The upper extremities have excellent pulses they are symmetric, no significant petechiae or telangiectasia. No splinter hemorrhages were noted. The lower extremities are free from significant edema. The peripheral pulses were 2+ and symmetric. Neuro: Awake alert oriented to person place and time. There are no acute new gross focal sensory motor deficits. Is mildly slow on her mentation Skin is grossly jaundiced - Labs CBC & Chem 7: 03/01/17 07:23 03/01/17 07:23 Labs: Abnormal Lab Results - Last 24 Hours (Table) 03/01/17 03/01/17 03/01/17 Range/Units 07:23 07:23 07:23 WBC 11.9 H (3.8-10.6) k/uL MCV 100.4 H (80.0-100.0) fL RDW 15.8 H (11.5-15.5) % Neutrophils # 9.4 H (1.3-7.7) k/uL PT 27.6 H (9.0-12.0) sec Sodium 133 L (137-145) mmol/L Chloride 92 L (98-107) mmol/L BUN 19 H (7-17) mg/dL Total Bilirubin 12.9 H (0.2-1.3) mg/dL AST 202 H (14-36) U/L ALT 95 H (9-52) U/L Microbiology - Last 24 Hours (Table) 02/28/17 18:14 Blood Culture - Preliminary Blood No Growth after 24 hours 02/26/17 06:14 Blood Culture Gram Stain - Final Blood Blood Culture - Final Diphtheroid species Laboratory Results WBC 11.9 k/uL (3.8-10.6) H 03/01/17 07:23 RBC 4.42 m/uL (3.80-5.40) 03/01/17 07:23 Hgb 14.4 gm/dL (11.4-16.0) 03/01/17 07:23 Hct 44.4 % (34.0-46.0) 03/01/17 07:23 MCV 100.4 fL (80.0-100.0) H 03/01/17 07:23 MCH 32.6 pg (25.0-35.0) 03/01/17 07:23 MCHC 32.4 g/dL (31.0-37.0) 03/01/17 07:23 RDW 15.8 % (11.5-15.5) H 03/01/17 07:23 Plt Count 205 k/uL (150-450) 03/01/17 07:23 Neutrophils % 79 % 03/01/17 07:23 Neutrophils % (Manual) 62.0 % 02/26/17 06:14 Band Neutrophils % Not Reportable 02/26/17 06:14 Lymphocytes % 12 % 03/01/17 07:23 Lymphocytes % (Manual) 30.0 % 02/26/17 06:14 Monocytes % 7 % 03/01/17 07:23 Monocytes % (Manual) 8.0 % 02/26/17 06:14 Eosinophils % 0 % 03/01/17 07:23 Basophils % 0 % 03/01/17 07:23 Neutrophils # 9.4 k/uL (1.3-7.7) H 03/01/17 07:23 Neutrophils # (Manual) 3.0 k/uL (1.3-7.7) 02/26/17 06:14 Lymphocytes # 1.4 k/uL (1.0-4.8) 03/01/17 07:23 Lymphocytes # (Manual) 1.4 k/uL (1.0-4.8) 02/26/17 06:14 Monocytes # 0.8 k/uL (0-1.0) 03/01/17 07:23 Monocytes # (Manual) 0.4 k/uL (0-1.0) 02/26/17 06:14 Eosinophils # 0.0 k/uL (0-0.7) 03/01/17 07:23 Basophils # 0.0 k/uL (0-0.2) 03/01/17 07:23 Nucleated RBCs 0 /100 WBC (0-0) 02/26/17 06:14 Plasma Cells % Not Reportable 02/26/17 06:14 Polychromasia Present 02/26/17 06:14 Hypochromasia Slight 03/01/17 07:23 Poikilocytosis (manual Present 02/26/17 06:14 Anisocytosis Slight 02/28/17 05:55 Anisocytosis (manual) Present 02/26/17 06:14 Macrocytosis Slight 03/01/17 07:23 Target Cells Present 02/26/17 06:14 PT 27.6 sec (9.0-12.0) H 03/01/17 07:23 INR 2.9 (<1.1) 03/01/17 07:23 APTT 26.3 sec (22.0-30.0) 02/25/17 13:54 Sodium 133 mmol/L (137-145) L 03/01/17 07:23 Potassium 4.0 mmol/L (3.5-5.1) 03/01/17 07:23 Chloride 92 mmol/L (98-107) L 03/01/17 07:23 Carbon Dioxide 28 mmol/L (22-30) 03/01/17 07:23 Anion Gap 13 mmol/L 03/01/17 07:23 BUN 19 mg/dL (7-17) H 03/01/17 07:23 Creatinine 0.93 mg/dL (0.52-1.04) 03/01/17 07:23 Est GFR (MDRD) Af Amer >60 (>60 ml/min/1.73 sqM) 03/01/17 07:23 Est GFR (MDRD) Non-Af >60 (>60 ml/min/1.73 sqM) 03/01/17 07:23 Glucose 79 mg/dL (74-99) 03/01/17 07:23 Calcium 8.9 mg/dL (8.4-10.2) 03/01/17 07:23 Phosphorus 2.5 mg/dL (2.5-4.5) 02/25/17 13:54 Magnesium 1.8 mg/dL (1.6-2.3) 03/01/17 07:23 Total Bilirubin 12.9 mg/dL (0.2-1.3) H 03/01/17 07:23 AST 202 U/L (14-36) H 03/01/17 07:23 ALT 95 U/L (9-52) H 03/01/17 07:23 Alkaline Phosphatase 124 U/L (38-126) 03/01/17 07:23 Ammonia 23 umol/L (<30) 02/28/17 05:55 Total Creatine Kinase 362 U/L (30-135) H 02/26/17 01:58 CK-MB (CK-2) 5.6 ng/mL (0.0-2.4) H* 02/26/17 01:58 CK-MB (CK-2) Rel Index 1.5 02/26/17 01:58 Troponin I 0.036 ng/mL (0.000-0.034) H* 02/26/17 01:58 NT-Pro-B Natriuret Pep 3750 pg/mL 02/25/17 13:54 Total Protein 6.5 g/dL (6.3-8.2) 03/01/17 07:23 Albumin 3.5 g/dL (3.5-5.0) 03/01/17 07:23 Tumor Marker AFP 3.5 ng/mL (0.0-7.9) 02/27/17 06:19 TSH 4.030 mIU/L (0.465-4.680) 02/25/17 13:54 Urine Color [place] 02/25/17 13:20 Urine Appearance Cloudy (Clear) H 02/25/17 13:20 Urine pH 5.5 (5.0-8.0) 02/25/17 13:20 Ur Specific [place] 1.013 (1.001-1.035) 02/25/17 13:20 Urine Protein Trace (Negative) H 02/25/17 13:20 Urine Glucose (UA) Negative (Negative) 02/25/17 13:20 Urine Ketones Negative (Negative) 02/25/17 13:20 Urine Blood Moderate (Negative) H 02/25/17 13:20 Urine Nitrite Negative (Negative) 02/25/17 13:20 Urine Bilirubin 2+ (Negative) H 02/25/17 13:20 Urine Urobilinogen 4.0 mg/dL (<2.0) 02/25/17 13:20 Ur Leukocyte Esterase Small (Negative) H 02/25/17 13:20 Urine RBC 19 /hpf (0-5) H 02/25/17 13:20 Urine WBC 5 /hpf (0-5) 02/25/17 13:20 Ur Squamous Epith Cells 6 /hpf (0-4) H 02/25/17 13:20 Urine Bacteria Many /hpf (None) H 02/25/17 13:20 Hyaline Casts 86 /lpf (0-2) H 02/25/17 13:20 Urine Mucus Rare /hpf (None) H 02/25/17 13:20 Serum Alcohol <10 mg/dL 02/25/17 13:54 Hep C IgG Ab Negative (Negative) 02/25/17 13:54 HCV RNA Qual (PCR) Not detected (Not detected) 02/25/17 19:43 Hepatitis C RNA Quant <12 IU/mL (<12) 02/25/17 19:43 HCV RNA PCR log helicopter 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/ml <1.08 (<1.08) 02/25/17 19:43 Hepatitis C Genotype Canceled 02/25/17 19:43 Microbiology 02/28/17 18:14 Blood Blood Culture - Preliminary No Growth after 24 hours 02/26/17 06:14 Blood Blood Culture Gram Stain - Final 02/26/17 06:14 Blood Blood Culture - Final Diphtheroid species 02/25/17 13:20 Urine,Voided Urine Culture - Final Klebsiella pneumoniae 02/26/17 06:14 Blood Blood Culture - Preliminary Assessment and Plan (1) Urinary tract infection Status: Acute (2) Alcoholic liver disease Status: Acute (3) Jaundice Status: Acute (4) Infection due to ESBL-producing Klebsiella pneumoniae Narrative/Plan: 31-year-old female presents to Hospital feeling poorly. Did have metabolic abnormalities with hypokalemia and hypomagnesemia. With this correction she's feeling somewhat better. She however still does not feel well overall. She did have some urine symptoms and urine culture shows evidence of an ESBL Klebsiella pneumoniae. Antibiotic therapy with ertapenem has been initiated.. She does not have significant ALLERGIES and discharge fortunately will be the option of several oral antibiotics to complete her course of therapy. Of note she has positive blood cultures with gram-positive bacilli, highly likely to be a contamination. This is not the same pathogen of her urine laboratories verify this as a diphtheroid which is a contamination and will need no further treatment . Follow blood culture is requested and are negative. She's been seen by gastroenterology. Suggested transfer to [facility] liver program she declined at this time. She is in the [facility] protocol and social service consult has been requested. Case is discussed with the mother. Patient has the ESBL Klebsiella pneumoniae infection of the urinary can be treated with Bactrim at her discharge. Status: Acute
[2017-03-02 03:35] LABS: INR 2.8 (<1.1)
[2017-03-02 03:36] LABS: ALT 99 U/L (9-52); AST 175 U/L (14-36); Alkaline Phosphatase 118 U/L (38-126); Anion Gap 8 mmol/L; Blood Urea Nitrogen 21 mg/dL (7-17); Calcium 8.7 mg/dL (8.4-10.2); Carbon Dioxide 27 mmol/L (22-30); Chloride 96 mmol/L (98-107); Glucose 109 mg/dL (74-99); Non-African American GFR(MDRD) >60 (>60 ml/min/1.73 sqM); Potassium 4.3 mmol/L (3.5-5.1); Sodium 131 mmol/L (137-145); Total Protein 5.6 g/dL (6.3-8.2)
[2017-03-02 03:37] LABS: Basophils % (A) 0 %; CH 32.3; CHCM 32.5; Eosinophils % (A) 0 %; HCT 41.5 % (34.0-46.0); HDW 2.83; HGB 13.5 gm/dL (11.4-16.0); Hypochromasia Slight; Luc % (Auto) 2; Lymphocytes # (A) 0.9 k/uL (1.0-4.8); Lymphocytes % (A) 10 %; MCH 32.5 pg (25.0-35.0); MCHC 32.5 g/dL (31.0-37.0); MCV 99.7 fL (80.0-100.0); Macrocytosis Slight; Monocytes # (A) 0.7 k/uL (0-1.0); Monocytes % (A) 9 %; Neutrophils # (A) 6.7 k/uL (1.3-7.7); Neutrophils % (A) 79 %; RBC 4.16 m/uL (3.80-5.40); RDW 15.8 % (11.5-15.5); WBC 8.5 k/uL (3.8-10.6); WBC (Perox) 8.75
[2017-03-02] MEDS: FUROSEMIDE 40 MG TAB PO SCH (08:15)
[2017-03-02] MEDS: LORATADINE 10 MG TAB PO SCH (08:15)
[2017-03-02] MEDS: POTASSIUM CHLORIDE ER 20 MEQ TAB.ER PO SCH (08:15)
[2017-03-02] MEDS: FAMOTIDINE 20 MG TAB PO SCH ×2 (08:15→21:15)
[2017-03-02] MEDS: predniSONE 20 MG TAB PO SCH (08:16)
[2017-03-02] MEDS: ERTAPENEM 1 GM in SODIUM CHLORIDE 0.9% 50 ML IVPB SCH (08:58)
--- NOTE | 2017-03-02 10:01 | P.PN ---
Subjective Principal diagnosis: ETOH hepatitis 31-year-old female admitted with acute UTI and acute alcohol hepatitis. History of alcohol liver disease and EtOH abuse. Last alcoholic drink about 10 days ago. Started on prednisone 3 days ago. Bilirubin improved today to 11. INR stable at 2.8. Feels well. Into skin discharge. Afebrile. Gram-positive bacilli blood cultures most likely contaminant per ID evaluation Objective - Vital Signs Vital signs: Vital Signs Temp 96.3 F L 03/02/17 07:00 Pulse 112 H 03/02/17 07:00 Resp 16 03/02/17 07:00 BP 96/65 03/02/17 07:00 Pulse Ox 95 03/02/17 07:00 Intake & Output 03/01/17 03/02/17 03/02/17 18:59 06:59 18:59 Intake Total 360 Balance 360 Intake: IV 160 Sodium Chloride 0.9% 1, 160 000 ml @ 20 mls/hr IV . Q24H [facility] Rx#:[id number] Intake, IV Titration 200 Amount Ertapenem 1 gm In Sodium 100 Chloride 0.9% 50 ml @ 100 mls/hr IVPB DAILY [facility] Rx #:[id number] Magnesium Sulfate-D5w Pmx 100 1 gm In Dextrose/Water 1 100ml.bag @ 100 mls/hr IVPB ONCE ONE Rx#: [id number] Other: Voiding Method Toilet # Voids 1 1 - Exam General appearance: The patient is alert, oriented, in no acute distress. Jaundice. HET: Head is normocephalic and atraumatic. Pupils are equal and reactive. Sclerae icterus. Oropharynx is clear without lesions. Neck: Supple without lymphadenopathy. Trachea midline. Heart: S1 S2. Regular rate and rhythm. Lungs: No crackles or wheezes are heard. Abdomen: Soft, nontender, nondistended with bowel sounds. No peritoneal signs. No palpable organomegaly or masses. Extremities: Normal skin color and turgor. No cyanosis, rash, ulceration, clubbing, or edema. Radial and pedal pulses are 2/4 bilaterally. Neurological: No focal deficits. Strength and sensation are grossly intact. - Labs CBC & Chem 7: 03/02/17 03:10 03/02/17 03:10 Labs: Abnormal Lab Results - Last 24 Hours (Table) 03/02/17 03/02/17 03/02/17 Range/Units 03:10 03:10 03:10 RDW 15.8 H (11.5-15.5) % Lymphocytes # 0.9 L (1.0-4.8) k/uL PT 27.0 H (9.0-12.0) sec Sodium 131 L (137-145) mmol/L Chloride 96 L (98-107) mmol/L BUN 21 H (7-17) mg/dL Glucose 109 H (74-99) mg/dL Total Bilirubin 11.0 H (0.2-1.3) mg/dL AST 175 H (14-36) U/L ALT 99 H (9-52) U/L Total Protein 5.6 L (6.3-8.2) g/dL Albumin 3.0 L (3.5-5.0) g/dL Microbiology - Last 24 Hours (Table) 02/28/17 18:14 Blood Culture - Preliminary Blood No Growth after 24 hours Assessment and Plan (1) Hepatitis Narrative/Plan: acute on chronic alcohol hepatitis. Status: Acute (2) Alcoholic liver disease Status: Acute (3) Elevated troponin Status: Acute (4) Coagulopathy Status: Acute (5) Urinary tract infection Status: Acute Plan: 1. Liver chemistries and PT/INR reviewed stable and slowly improving. 2. From a GI standpoint agreeable for discharge. 3. Alcohol abstinence strongly advised; use of prednisone will not help patients hepatitis if she continues to drink alcohol. Patient was biased to present to return for evaluation if jaundice worsens and/or development of fever , abdominal pain, or bleeding. 4. Return to GI office 7-10 days for reevaluation. Repeat CMP/PT/INR in outpatient setting 3-5 days. 5. Prednisone 40 mg daily 30 days starting February 27. prescription provided. 6. Patient is scheduled to follow-up/referral [facility] hopefully next 1-2 months for alcohol liver disease evaluation treatment management. Assessment and plan a care discussed with Dr. Cruz.
[2017-03-02] MEDS: LEVOFLOXACIN 500MG-D5W PMX 500 MG in DEXTROSE/WATER 1 100ML.BAG IVPB SCH (10:33)
[2017-03-02] MEDS: THIAMINE 100 MG TAB PO SCH (12:34)
[2017-03-02] MEDS: MULTIVITAMINS, THERA 1 EACH TAB PO SCH (12:34)
[2017-03-02] MEDS: FOLIC ACID 1 MG TAB PO SCH (12:34)
--- NOTE | 2017-03-02 15:58 | P.PN ---
Subjective Principal diagnosis: Acute on chronic alcohol hepatitis patient feeling better she denies any chest pain or dyspnea Muscle cramps have improved no nausea or vomiting no abdominal pain no urinary symptoms Jaundice has worsened Urine culture was positive for ESBL Klebsiella pneumonia Objective - Vital Signs Vital signs: Vital Signs Temp 96.3 F L 03/02/17 07:00 Pulse 112 H 03/02/17 08:00 Resp 16 03/02/17 08:00 BP 96/65 03/02/17 07:00 Pulse Ox 95 03/02/17 07:00 Intake & Output 03/01/17 03/02/17 03/02/17 18:59 06:59 18:59 Intake Total 360 360 Balance 360 360 Weight 57.606 kg Intake: IV 160 160 Sodium Chloride 0.9% 1, 160 160 000 ml @ 20 mls/hr IV . Q24H [facility] Rx#:[id number] Intake, IV Titration 200 200 Amount Ertapenem 1 gm In Sodium 100 100 Chloride 0.9% 50 ml @ 100 mls/hr IVPB DAILY [facility] Rx #:[id number] Levofloxacin 500Mg-D5w 100 Pmx 500 mg In Dextrose/ Water 1 100ml.bag @ 100 mls/hr IVPB Q24H [facility] Rx#: [id number] Magnesium Sulfate-D5w Pmx 100 1 gm In Dextrose/Water 1 100ml.bag @ 100 mls/hr IVPB ONCE ONE Rx#: [id number] Other: Voiding Method Toilet Toilet # Voids 1 1 - Exam In general patient is alert and oriented 3 in no apparent distress HEENT head normocephalic and atraumatic Neck is supple no JVD no goiter no lymphadenopathy Chest exam reveals bilateral coarse crackles no wheezing Cardiac exam reveals regular heart sounds no gallops no murmurs Abdomen is soft with mild diffuse tenderness, no organomegaly, with normal bowel sounds Extremity exam reveals no edema no cyanosis or clubbing - Labs CBC & Chem 7: 03/02/17 03:10 03/02/17 03:10 Labs: Abnormal Lab Results - Last 24 Hours (Table) 03/02/17 03/02/17 03/02/17 Range/Units 03:10 03:10 03:10 RDW 15.8 H (11.5-15.5) % Lymphocytes # 0.9 L (1.0-4.8) k/uL PT 27.0 H (9.0-12.0) sec Sodium 131 L (137-145) mmol/L Chloride 96 L (98-107) mmol/L BUN 21 H (7-17) mg/dL Glucose 109 H (74-99) mg/dL Total Bilirubin 11.0 H (0.2-1.3) mg/dL AST 175 H (14-36) U/L ALT 99 H (9-52) U/L Total Protein 5.6 L (6.3-8.2) g/dL Albumin 3.0 L (3.5-5.0) g/dL Microbiology - Last 24 Hours (Table) 02/26/17 06:14 Blood Culture - Final Blood 02/28/17 18:14 Blood Culture - Preliminary Blood No Growth after 24 hours Assessment and Plan Plan: 1. Acute on chronic alcohol hepatitis, evaluated by gastroenterology, started on prednisone, patient has elevated liver enzymes and elevated bilirubin, today bilirubin slightly down at 11 2. Severe muscle cramping in the legs and hands likely related to potassium deficiency. Showing improvement as potassium is being replaced Electrolyte imbalance with hypokalemia, hypomagnesemia and hyponatremia likely secondary to the Lasix. Patient is receiving supplements for hypokalemia and hypomagnesemia. Continue IV fluids KVO normal saline. Monitor closely. 3. Mildly elevated troponins of unclear clinical significance: Echo revealed moderate to severe left ventricular dysfunction with ejection fraction of 30-35 % patient has known history of congenital heart disease with surgery. 4. Hyperbilirubinemia: With mildly elevated LFTs. 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 A patient is to follow up with [facility] liver specialist in March. He shouldn't reports that she was not officially diagnosed with the cardiogenic liver cirrhosis. Hepatitis C is negative. EtOH level is less than 10. She was started on Lasix 40 mg by mouth daily by [facility] specialist 5. 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 UTI: Urine culture positive for ESBL Klebsiella pneumonia, blood culture is also positive, at this time patient was switched ertapenem, consultation for Dr. Tillman was initiated 7. History of paroxysmal atrial fibrillation 8. History of severe pulmonary hypertension 9. History of chronic systolic CHF with EF of 30-35% currently on Lasix 40 mg by mouth daily. Chest x-ray shows improving changes and pulmonary edema patient improving gradually, possible discharge tomorrow
[2017-03-02] MEDS: METOPROLOL TARTRATE 25 MG TAB PO SCH ×2 (17:15→21:15)
[2017-03-02] MEDS: SODIUM CHLORIDE 0.9% 1,000 ML IV SCH (17:32)
[2017-03-02] MEDS: ALPRAZolam 0.25 MG TAB PO PRN (18:15)
[2017-03-03] MEDS: ALPRAZolam 0.25 MG TAB PO PRN ×2 (00:02→08:00)
[2017-03-03 00:39] VITALS: RESP 20
[2017-03-03 07:37] VITALS: BP 95/63; PULSE 114; TEMP 96.7
[2017-03-03] MEDS: POTASSIUM CHLORIDE ER 20 MEQ TAB.ER PO SCH (07:56)
[2017-03-03] MEDS: METOPROLOL TARTRATE 25 MG TAB PO SCH (07:56)
[2017-03-03] MEDS: FAMOTIDINE 20 MG TAB PO SCH (07:56)
[2017-03-03] MEDS: ERTAPENEM 1 GM in SODIUM CHLORIDE 0.9% 50 ML IVPB SCH (07:56)
[2017-03-03] MEDS: FUROSEMIDE 40 MG TAB PO SCH (07:56)
[2017-03-03] MEDS: LORATADINE 10 MG TAB PO SCH (07:56)
[2017-03-03] MEDS: predniSONE 20 MG TAB PO SCH (07:57)
[2017-03-03 08:41] LABS: Basophils % (A) 0 %; CHCM 31.2; Eosinophils % (A) 0 %; HCT 45.7 % (34.0-46.0); HDW 2.73; HGB 14.5 gm/dL (11.4-16.0); Hypochromasia Moderate; Luc # (Auto) 0.32; Luc % (Auto) 3; Lymphocytes # (A) 1.6 k/uL (1.0-4.8); Lymphocytes % (A) 16 %; MCH 32.8 pg (25.0-35.0); MCHC 31.8 g/dL (31.0-37.0); MCV 103.1 fL (80.0-100.0); Macrocytosis Moderate; Mean Platelet Volume 8.3; Monocytes # (A) 0.9 k/uL (0-1.0); Monocytes % (A) 9 %; Neutrophils # (A) 7.2 k/uL (1.3-7.7); Neutrophils % (A) 73 %; RBC 4.44 m/uL (3.80-5.40); RDW 15.9 % (11.5-15.5); WBC 9.9 k/uL (3.8-10.6); WBC (Perox) 9.89
[2017-03-03 08:51] LABS: INR 2.1 (<1.1); Prothrombin Time 20.5 sec (9.0-12.0)
[2017-03-03 08:56] LABS: ALT 97 U/L (9-52); AST 158 U/L (14-36); Alkaline Phosphatase 149 U/L (38-126); Anion Gap 13 mmol/L; Blood Urea Nitrogen 23 mg/dL (7-17); Calcium 9.4 mg/dL (8.4-10.2); Carbon Dioxide 25 mmol/L (22-30); Chloride 96 mmol/L (98-107); Glucose 96 mg/dL (74-99); Non-African American GFR(MDRD) >60 (>60 ml/min/1.73 sqM); Potassium 4.3 mmol/L (3.5-5.1); Sodium 134 mmol/L (137-145); Total Bilirubin 11.3 mg/dL (0.2-1.3); Total Protein 6.5 g/dL (6.3-8.2)
[2017-03-03] MEDS ORDERED: LEVOFLOXACIN 500 MG TAB PO SCH (09:00)
[2017-03-03] MEDS ORDERED: CALCIUM CARBONATE 500 MG CHEWABLE PO PRN (11:04)
[2017-03-03] MEDS: THIAMINE 100 MG TAB PO SCH (11:21)
[2017-03-03] MEDS: MULTIVITAMINS, THERA 1 EACH TAB PO SCH (11:21)
[2017-03-03] MEDS: FOLIC ACID 1 MG TAB PO SCH (11:21)
--- NOTE | 2017-03-03 12:59 | P.DS ---
Providers Date of admission: 02/25/17 16:53 Expected date of discharge: 03/03/17 Attending physician: Johanna Felton Consults: 02/25/17 17:42 Consult Physician Routine Consulting Provider: Camacoh Velazco Consult Reason/Comments: ELEVATED TROPONIN, CARDIAC HX Do you want consulting provider notified?: Yes, Notify in am 02/28/17 09:20 Consult Physician Routine Consulting Provider: Thiago Tillman Consult Reason/Comments: positive blood culture Do you want consulting provider notified?: Yes Primary care physician: Jocy Matute [facility] Course: diagnosis on discharge: 1. Acute on chronic alcohol hepatitis, evaluated by gastroenterology, started on prednisone, patient has elevated liver enzymes and elevated bilirubin, today bilirubin slightly up at 11.3 2. Severe muscle cramping in the legs and hands likely related to potassium deficiency. Showing improvement as potassium is being replaced Electrolyte imbalance with hypokalemia, hypomagnesemia and hyponatremia likely secondary to the Lasix. Patient is receiving supplements for hypokalemia and hypomagnesemia. Continue IV fluids KVO normal saline. Monitor closely. 3. Mildly elevated troponins of unclear clinical significance: Echo revealed moderate to severe left ventricular dysfunction with ejection fraction of 30-35 % patient has known history of congenital heart disease with surgery. 4. Hyperbilirubinemia: With mildly elevated LFTs. 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 A patient is to follow up with [facility] liver specialist in March. He shouldn't reports that she was not officially diagnosed with the cardiogenic liver cirrhosis. Hepatitis C is negative. EtOH level is less than 10. She was started on Lasix 40 mg by mouth daily by [facility] specialist 5. 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 UTI: Urine culture positive for ESBL Klebsiella pneumonia, blood culture is also positive, at this time patient was switched ertapenem, consultation for Dr. Tillman was initiated, recommendation was to continue treatment as outpatient with Bactrim DS she was given a prescription for Bactrim DS one twice daily for 5 more days 7. History of paroxysmal atrial fibrillation 8. History of severe pulmonary hypertension 9. History of chronic systolic CHF with EF of 30-35% currently on Lasix 40 mg by mouth daily. Chest x-ray shows improving changes and pulmonary edema Patient improved significantly throughout this admission She was counseled in length in regards to not drinking any alcohol at all She was discharged home on 03/03/2017 She will follow-up with her primary care physician at [facility] within 2-3 days Patient Condition at Discharge: Fair Plan - Discharge Summary New Discharge Prescriptions: New predniSONE 40 mg PO DAILY #60 tab ALPRAZolam [Xanax] 0.25 mg PO QID PRN tab PRN Reason: Anxiety Famotidine [Pepcid] 20 mg PO BID tab Metoprolol Tartrate [Lopressor] 25 mg PO BID tab Multivitamins, Thera [Multivitamin (formulary)] 1 each PO DAILY@1200 tab Potassium Chloride ER [K-Dur 20] 20 meq PO DAILY tab Sulfamethox-Tmp 800-160Mg [Bactrim DS 800-160 mg] 1 tab PO Q12HR #10 tab Continue Cetirizine HCl [Zyrtec] 10 mg PO DAILY Furosemide [Lasix] 40 mg PO DAILY Discontinued Metoprolol Succinate (ER) [Toprol Xl] 25 mg PO DAILY Azithromycin [Zithromax Z-pack] See Taper PO DIRECTED Discharge Medication List Cetirizine HCl [Zyrtec] 10 mg PO DAILY 02/25/17 [History] Furosemide [Lasix] 40 mg PO DAILY 02/25/17 [History] predniSONE 40 mg PO DAILY #60 tab 02/26/17 [Rx] ALPRAZolam [Xanax] 0.25 mg PO QID PRN tab 03/03/17 [Rx] Famotidine [Pepcid] 20 mg PO BID tab 03/03/17 [Rx] Metoprolol Tartrate [Lopressor] 25 mg PO BID tab 03/03/17 [Rx] Multivitamins, Thera [Multivitamin (formulary)] 1 each PO DAILY@1200 tab [Rx] Potassium Chloride ER [K-Dur 20] 20 meq PO DAILY tab 03/03/17 [Rx] Sulfamethox-Tmp 800-160Mg [Bactrim DS 800-160 mg] 1 tab PO Q12HR #10 tab [Rx] Follow up Appointment(s)/Referral(s): Shelli Velazco MD [STAFF PHYSICIAN] - 2 Weeks Jocy Matute DO [Primary Care Provider] - 1-2 days Ambulatory/Diagnostic Orders: Comprehensive Metabolic Panel [LAB.AMB] Time Frame: 3 Days, Location: Determined By Patient Prothrombin Time INR [LAB.AMB] Time Frame: 3 Days, Location: Determined By Patient
== END 2017-03-03 14:04 | disposition home or self-care (01) | DRG 433 ==
LOC: EC 13:09 → 6SEL 16:53 → 4MS4W 02-28 11:39
PROVIDERS: ADMIT Internal Medicine; ATTEND Internal Medicine
DX: K70.10 Alcoholic hepatitis without ascites (principal); I50.22 Chronic systolic (congestive) heart failure; D68.9 Coagulation defect, unspecified; I27.2 Other secondary pulmonary hypertension; I11.0 Hypertensive heart disease with heart failure; E87.1 Hypo-osmolality and hyponatremia; N39.0 Urinary tract infection, site not specified; E83.42 Hypomagnesemia; I48.0 Paroxysmal atrial fibrillation; K76.0 Fatty (change of) liver, not elsewhere classified; E87.6 Hypokalemia; F10.20 Alcohol dependence, uncomplicated; B96.1 Klebsiella pneumoniae [K. pneumoniae] as the cause of diseases classified elsewhere; Z16.12 Extended spectrum beta lactamase (ESBL) resistance; R00.0 Tachycardia, unspecified; J31.0 Chronic rhinitis; Z87.74 Personal history of (corrected) congenital malformations of heart and circulatory system; F41.9 Anxiety disorder, unspecified; Z87.891 Personal history of nicotine dependence; Z79.899 Other long term (current) drug therapy
CPT/HCPCS: 36415; 71020; 80048; 80053; 80320; 81001; 82105; 82140; 82550; 82553; 83605; 83735; 83880; 84100; 84132; 84443; 84484; 85025; 85610; 85730; 86803; 87040; 87077; 87086; 87186; 87522; 93005; 93306; 94760; 96361; 96365; 99285

== ENCOUNTER 2017-03-06 01:07 | Inpatient (IN) | payer OTHER ==
--- NOTE | 2017-03-06 02:08 | ED ---
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 Patient states since then she has been having peripheral edema which she is told is secondary to her heart which she doesn't know exactly why. Patient states she does have a history of atrial fibrillation. Patient states she went back to work for the first time today and she hasn't been taking her Lasix for a couple of days She didn't get her prescription filled and she believes that his reason she has had more swelling to her legs. Patient denies any fever chills or cough. Patient denies abdominal pain. Patient states she did vomit times one which she thinks is because of something she ate and the fact that she is very nervous. - Related Data Home Medications Medication Instructions Recorded Confirmed Cetirizine HCl [Zyrtec] 10 mg PO DAILY 02/25/17 03/06/17 Furosemide [Lasix] 40 mg PO DAILY 02/25/17 03/06/17 Previous Rx's Medication Instructions Recorded predniSONE 40 mg PO DAILY #60 tab 02/26/17 ALPRAZolam [Xanax] 0.25 mg PO QID PRN tab 03/03/17 Famotidine [Pepcid] 20 mg PO BID tab 03/03/17 Metoprolol Tartrate [Lopressor] 25 mg PO BID tab 03/03/17 Multivitamins, Thera [Multivitamin 1 each PO DAILY@1200 tab 03/03/17 (formulary)] Potassium Chloride ER [K-Dur 20] 20 meq PO DAILY tab 03/03/17 Sulfamethox-Tmp 800-160Mg [Bactrim 1 tab PO Q12HR #10 tab 03/03/17 DS 800-160 mg] Allergies Allergy/AdvReac Type Severity Reaction Status Date / Time No Known Allergies Allergy Verified 02/25/17 14:25 Review of Systems ROS Statement: Those systems with pertinent positive or pertinent negative responses have been documented in the HPI. ROS Other: All systems not noted in ROS Statement are negative. Past Medical History Past Medical History: Atrial Fibrillation, Heart Failure Additional Past Medical History / Comment(s): pt had transposition of great arteries as an History of Any Multi-Drug Resistant Organisms: ESBL Date of last positivie culture/infection: 02/25/17 ESBL-Klebsiella MDRO Source:: Urine Additional Past Surgical History / Comment(s): open heart surg for transposition of great arteries, CARDIOVERTED FOR A- FIB Past Psychological History: No Psychological Hx Reported, Anxiety Additional Psychological History / Comment(s): Single, lives with family. Tobacco use. Denies injection drug use or other current recreational drug use. Is not working. No experience due to her medical condition. Heavy alcohol use including recent CIWA protocol and progress. No animal exposures Smoking Status: Former smoker Past Alcohol Use History: Rare Past Drug Use History: None Reported - Past Family History Mother Family Medical History: No Reported History Father Family Medical History: No Reported History General Exam - General Exam Comments Initial Comments: GENERAL: Patient is well-developed and well-nourished. Patient is nontoxic and well- hydrated and is in mild distress. ENT: Neck is soft and supple. No significant lymphadenopathy is noted. Oropharynx is clear. Moist mucous membranes. Neck has full range of motion without eliciting any pain. EYES: The sclera were anicteric and conjunctiva were pink and moist. Extraocular movements were intact and pupils were equal round and reactive to light. Eyelids were unremarkable. PULMONARY: Unlabored respirations. Good breath sounds bilaterally. No audible rales rhonchi or wheezing was noted. CARDIOVASCULAR: Patient is tachycardic and irregular ABDOMEN: Soft and nontender with normal bowel sounds. SKIN: Skin is clear with no lesions or rashes and otherwise unremarkable. NEUROLOGIC: Patient is alert and oriented x3. Cranial nerves II through XII are grossly intact. Motor and sensory are also intact. Normal speech, volume and content. Symmetrical smile. MUSCULOSKELETAL: Normal extremities with adequate strength and full range of motion. 2+ edema. LYMPHATICS: No significant lymphadenopathy is noted PSYCHIATRIC: Normal psychiatric evaluation. Limitations: no limitations Course Vital Signs 03/06/17 03/06/17 01:17 02:44 Temperature 97 F L Pulse Rate 77 142 H Respiratory 18 20 Rate Blood Pressure 121/79 130/82 O2 Sat by Pulse 98 97 Oximetry Medical Decision Making - Medical Decision Making EKG shows atrial fibrillation at 103 9 bpm QRS is 124 QT interval 342 QTC is 520. Patient's right bundle blayne block. Chest x-ray shows mild pulmonary edema - Lab Data Result diagrams: 03/06/17 01:55 03/06/17 01:55 Lab Results 03/06/17 03/06/17 03/06/17 Range/Units 01:55 01:55 01:55 WBC 9.5 (3.8-10.6) k/uL RBC 5.11 (3.80-5.40) m/uL Hgb 15.9 (11.4-16.0) gm/dL Hct 54.3 H (34.0-46.0) % MCV 106.3 H (80.0-100.0) fL MCH 31.2 (25.0-35.0) pg MCHC 29.3 L (31.0-37.0) g/dL RDW 15.7 H (11.5-15.5) % Plt Count 218 (150-450) k/uL Neutrophils % (Manual) 73.5 % Lymphocytes % (Manual) 16.5 % Monocytes % (Manual) 10.0 % Neutrophils # (Manual) 7.0 (1.3-7.7) k/uL Lymphocytes # (Manual) 1.6 (1.0-4.8) k/uL Monocytes # (Manual) 1.0 (0-1.0) k/uL Nucleated RBCs 7 H (0-0) /100 WBC Manual Slide Review Performed Hypochromasia Marked Macrocytosis Moderate PT (9.0-12.0) sec INR (<1.1) APTT (22.0-30.0) sec Sodium 137 (137-145) mmol/L Potassium 5.1 (3.5-5.1) mmol/L Chloride 92 L (98-107) mmol/L Carbon Dioxide 16 L (22-30) mmol/L Anion Gap 29 mmol/L BUN 23 H (7-17) mg/dL Creatinine 1.20 H (0.52-1.04) mg/dL Est GFR (MDRD) Af Amer >60 (>60 ml/min/1.73 sqM) Est GFR (MDRD) Non-Af 53 (>60 ml/min/1.73 sqM) Glucose 30 L* (74-99) mg/dL POC Glucose (mg/dL) (75-99) mg/dL POC Glu Cnc Set Up Operator ID Calcium 10.8 H (8.4-10.2) mg/dL Magnesium 2.2 (1.6-2.3) mg/dL Total Bilirubin 15.6 H* (0.2-1.3) mg/dL AST 171 H (14-36) U/L ALT 121 H (9-52) U/L Alkaline Phosphatase 188 H (38-126) U/L Total Creatine Kinase 338 H (30-135) U/L CK-MB (CK-2) 16.9 H* (0.0-2.4) ng/mL CK-MB (CK-2) Rel Index 5.0 Troponin I 0.158 H* (0.000-0.034) ng/mL NT-Pro-B Natriuret Pep pg/mL Total Protein 8.2 (6.3-8.2) g/dL Albumin 4.9 (3.5-5.0) g/dL 03/06/17 03/06/17 03/06/17 Range/Units 01:55 01:55 03:12 WBC (3.8-10.6) k/uL RBC (3.80-5.40) m/uL Hgb (11.4-16.0) gm/dL Hct (34.0-46.0) % MCV (80.0-100.0) fL MCH (25.0-35.0) pg MCHC (31.0-37.0) g/dL RDW (11.5-15.5) % Plt Count (150-450) k/uL Neutrophils % (Manual) % Lymphocytes % (Manual) % Monocytes % (Manual) % Neutrophils # (Manual) (1.3-7.7) k/uL Lymphocytes # (Manual) (1.0-4.8) k/uL Monocytes # (Manual) (0-1.0) k/uL Nucleated RBCs (0-0) /100 WBC Manual Slide Review Hypochromasia Macrocytosis PT 21.4 H (9.0-12.0) sec INR 2.2 (<1.1) APTT 25.2 (22.0-30.0) sec Sodium (137-145) mmol/L Potassium (3.5-5.1) mmol/L Chloride (98-107) mmol/L Carbon Dioxide (22-30) mmol/L Anion Gap mmol/L BUN (7-17) mg/dL Creatinine (0.52-1.04) mg/dL Est GFR (MDRD) Af Amer (>60 ml/min/1.73 sqM) Est GFR (MDRD) Non-Af (>60 ml/min/1.73 sqM) Glucose (74-99) mg/dL POC Glucose (mg/dL) 107 H (75-99) mg/dL POC Glu Cnc Set Up Operator ID Piter Lei Calcium (8.4-10.2) mg/dL Magnesium (1.6-2.3) mg/dL Total Bilirubin (0.2-1.3) mg/dL AST (14-36) U/L ALT (9-52) U/L Alkaline Phosphatase (38-126) U/L Total Creatine Kinase (30-135) U/L CK-MB (CK-2) (0.0-2.4) ng/mL CK-MB (CK-2) Rel Index Troponin I (0.000-0.034) ng/mL NT-Pro-B Natriuret Pep 29607 pg/mL Total Protein (6.3-8.2) g/dL Albumin (3.5-5.0) g/dL Disposition Clinical Impression: Acute pulmonary edema, Liver disorder, Elevated troponin Disposition: ADMITTED IP TO THIS HOSP Referrals: Jocy Matute DO [Primary Care Provider] - 1-2 days Time of Disposition: 03:27
[2017-03-06 02:13] LABS: Aty Lym Flag Slight; CH 31.5; CHCM 29.8; HCT 54.3 % (34.0-46.0); HGB 15.9 gm/dL (11.4-16.0); Hypochromasia Marked; MCH 31.2 pg (25.0-35.0); MCHC 29.3 g/dL (31.0-37.0); MCV 106.3 fL (80.0-100.0); Macrocytosis Moderate; Mean Platelet Volume 8.4; RBC 5.11 m/uL (3.80-5.40); RDW 15.7 % (11.5-15.5); WBC (Perox) 9.04
[2017-03-06 02:24] LABS: ALT 121 U/L (9-52); AST 171 U/L (14-36); Alkaline Phosphatase 188 U/L (38-126); Anion Gap 29 mmol/L; Blood Urea Nitrogen 23 mg/dL (7-17); Calcium 10.8 mg/dL (8.4-10.2); Carbon Dioxide 16 mmol/L (22-30); Chloride 92 mmol/L (98-107); Magnesium 2.2 mg/dL (1.6-2.3); Non-African American GFR(MDRD) 53 (>60 ml/min/1.73 sqM); Potassium 5.1 mmol/L (3.5-5.1); Sodium 137 mmol/L (137-145); Total Protein 8.2 g/dL (6.3-8.2)
[2017-03-06] MEDS ORDERED: FUROSEMIDE 10 MG/ML 4 ML VIAL IV STA (02:24)
[2017-03-06] MEDS ORDERED: DILTIAZEM 125 MG in SODIUM CHLORIDE 0.9% 100 ML IV ONE (02:24)
[2017-03-06] MEDS ORDERED: METOCLOPRAMIDE 5 MG/ML 2 ML VIAL IVP STA (02:25)
[2017-03-06 02:31] LABS: Glucose 30 mg/dL (74-99)
[2017-03-06 02:32] LABS: Total Bilirubin 15.6 mg/dL (0.2-1.3)
[2017-03-06] MEDS ORDERED: DEXTROSE 50%-WATER 50 ML SYRINGE IVP STA (02:34)
--- NOTE | 2017-03-06 02:34 | XR ---
EXAM: XR Chest, 2 Views CLINICAL HISTORY: Reason: difficulty breathing TECHNIQUE: Frontal and lateral views of the chest. COMPARISON: 02/25/17 FINDINGS: Lungs: The pulmonary vascular markings are again mildly prominent throughout, with reticular subpleural opacities at the lung bases. No consolidation. Pleural space: As seen on the lateral view, there is a small amount of pleural or subpleural fluid along one or more fissures. No pneumothorax. Heart: Global enlargement of the cardiopericardial silhouette is stable as are the mediastinal contours. Mediastinum: Stable. Bones/joints: There has been prior median sternotomy, and at least the middle if not lowest 2 sternotomy wires appear discontiguous, stable. IMPRESSION: Stable exam including cardiomegaly with findings of pulmonary vascular congestion/borderline CHF.
[2017-03-06 02:45] LABS: Add Differential Manual Differential
[2017-03-06 02:47] LABS: Creatine Kinase MB 16.9 ng/mL (0.0-2.4); Troponin I 0.158 ng/mL (0.000-0.034)
[2017-03-06 02:51] LABS: Manual Review Performed; Nucleated Red Blood Cells 7 /100 WBC (0-0); Total Cells Counted 200; WBC 9.5 k/uL (3.8-10.6)
[2017-03-06 03:03] LABS: INR 2.2 (<1.1); Partial Thromboplastin Time 25.2 sec (22.0-30.0); Prothrombin Time 21.4 sec (9.0-12.0)
[2017-03-06 03:14] LABS: Glucose,Whole Blood 107 mg/dL (75-99)
[2017-03-06] MEDS ORDERED: LORazepam 2 MG/ML SYRINGE IM STA (03:20)
[2017-03-06] MEDS ORDERED: FUROSEMIDE 10 MG/ML 4 ML VIAL IV SCH (03:30)
[2017-03-06 04:56] VITALS: BMI 23.7
[2017-03-06 06:13] LABS: Glucose,Whole Blood 112 mg/dL (75-99)
--- NOTE | 2017-03-06 08:20 | P.CRDCN ---
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 Patient also was having episodes of nausea for these reason she came back to the emergency room for further evaluation. EKG on admission here showed atrial fibrillation with a rapid ventricular response and right bundle branch block pattern. Chest x-ray revealed stable exam including cardiomegaly with findings of pulmonary vascular congestion and borderline congestive heart failure. Patient was given 40 mg of IV Lasix in the emergency room and put on 40 mg every 8 hourly IV. She is also on a Cardizem drip at 5 mg per hour. Blood pressure on arrival 120/78, heart rate in the 140s. 98% on room air. CBC 9.5, hemoglobin 15.9, INR 2.2, potassium 5.1 , BUN 23, creatinine 1.2. Magnesium level II.2, glucose on arrival 30, total bilirubin 15.6, AST 171, ALT 121, alk phos 188, CK 338, MB 16.9, troponin 0.158. BNP level 12,800.Echo with Doppler study was performed one week ago which revealed an ejection fraction of 30-35%. At the time of my examination this morning, patient is very sleepy, she does wake up intermittently to answer questions. 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 Tobacco use. Denies injection drug use or other current recreational drug use. Is not working. No experience due to her medical condition. Heavy alcohol use including recent CIWA protocol and progress. No animal exposures Smoking Status: Former smoker Past Alcohol Use History: Rare Past Drug Use History: None Reported - Past Family History Mother Family Medical History: No Reported History Father Family Medical History: No Reported History Medications and Allergies Home Medications Medication Instructions Recorded Confirmed Type Cetirizine HCl [Zyrtec] 10 mg PO DAILY 02/25/17 03/06/17 History Furosemide [Lasix] 40 mg PO DAILY 02/25/17 03/06/17 History Allergies Allergy/AdvReac Type Severity Reaction Status Date / Time No Known Allergies Allergy Verified 02/25/17 14:25 Physical Exam Vitals: Vital Signs Temp Pulse Pulse Resp BP BP Pulse Ox 03/06/17 04:58 98.3 F 112 H 18 112/68 98 03/06/17 04:00 115 H 16 121/81 97 03/06/17 03:53 98.3 F 118 H 20 117/65 98 03/06/17 02:44 142 H 20 130/82 97 03/06/17 01:17 97 F L 77 18 121/79 98 Intake and Output 03/05/17 03/06/17 03/06/17 22:59 06:59 14:59 Intake Total 15 Output Total 300 Balance -285 Intake: Intake, IV Titration 15 Amount Diltiazem 125 mg In 15 Sodium Chloride 0.9% 100 ml @ 5 MG/HR 5 mls/hr IV .Q24H ONE Rx#:[id number] Oral 0 Output: Urine 300 Other: Voiding Method Toilet # Voids 1 Weight 60.8 kg PHYSICAL EXAMINATION: HEENT: Head is atraumatic, normocephalic. Pupils equal, round. Neck is supple. There is elevated jugular venous pressure. HEART EXAMINATION: Heart S1 and S2 irregularly irregular CHEST EXAMINATION: Lungs reveal decreased air exchange with expiratory wheezing throughout ABDOMEN: Soft, liver is enlarged, nontender. EXTREMITIES: 2+ peripheral pulses with 1+ evidence of peripheral edema and no calf tenderness noted. NEUROLOGIC sleepy, arouses to voice. Alert and oriented 3 . Results 03/06/17 01:55 03/06/17 01:55 Cardiac Enzymes 03/06/17 03/06/17 Range/Units 01:55 01:55 AST 171 H (14-36) U/L CK-MB (CK-2) 16.9 H* (0.0-2.4) ng/mL Troponin I 0.158 H* (0.000-0.034) ng/mL Coagulation 03/06/17 Range/Units 01:55 PT 21.4 H (9.0-12.0) sec APTT 25.2 (22.0-30.0) sec CBC 03/06/17 Range/Units 01:55 WBC 9.5 (3.8-10.6) k/uL RBC 5.11 (3.80-5.40) m/uL Hgb 15.9 (11.4-16.0) gm/dL Hct 54.3 H (34.0-46.0) % Plt Count 218 (150-450) k/uL Comprehensive Metabolic Panel 03/06/17 Range/Units 01:55 Sodium 137 (137-145) mmol/L Potassium 5.1 (3.5-5.1) mmol/L Chloride 92 L (98-107) mmol/L Carbon Dioxide 16 L (22-30) mmol/L BUN 23 H (7-17) mg/dL Creatinine 1.20 H (0.52-1.04) mg/dL Glucose 30 L* (74-99) mg/dL Calcium 10.8 H (8.4-10.2) mg/dL AST 171 H (14-36) U/L ALT 121 H (9-52) U/L Alkaline Phosphatase 188 H (38-126) U/L Total Protein 8.2 (6.3-8.2) g/dL Albumin 4.9 (3.5-5.0) g/dL Current Medications Generic Name Dose Route Start Last Admin Trade Name Freq PRN Reason Stop Dose Admin Furosemide 40 mg 03/06/17 03:30 03/06/17 05:00 Lasix IV 40 mg Q8H MICHAEL Administration Diltiazem HCl 125 mg/ Sodium 125 mls @ 5 mls/hr 03/06/17 02:24 03/06/17 02:38 Chloride IV 03/07/17 02:23 5 mg/hr .Q24H ONE 5 mls/hr 5 MG/HR Administration Intake and Output 03/05/17 03/06/17 03/06/17 22:59 06:59 14:59 Intake Total 15 Output Total 300 Balance -285 Intake: Intake, IV Titration 15 Amount Diltiazem 125 mg In 15 Sodium Chloride 0.9% 100 ml @ 5 MG/HR 5 mls/hr IV .Q24H ONE Rx#:[id number] Oral 0 Output: Urine 300 Other: Voiding Method Toilet # Voids 1 Weight 60.8 kg 03/06/17 01:55 03/06/17 01:55 EKG Interpretations (text) EKG shows atrial fibrillation with a rapid ventricular response Assessment and Plan Plan: Assessment and plan #1 systolic congestive heart failure acute on chronic. Ejection fraction 30-35 % by echo performed last week. BNP level 12,800. #2 atrial fibrillation with rapid ventricular response, paroxysmal. Patient has history of paroxysmal atrial fibrillation with prior cardioversions. 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 Plan We will not repeat the patient's echocardiogram with Doppler study as she recently had one one week ago. We will continue the current dose of IV Lasix monitoring intake and output along with daily weights and daily lytes BUN and creatinine. We will also resume the patient's Lopressor increasing the dose to 50 mg one tablet by mouth twice a day, discontinue Cardizem drip as the patient has a documented low ejection fraction. We will also check an EtOH level along 3 T4 and TSH. Further recommendations to follow. DNP note has been reviewed, I agree with a documented findings and plan of care. Patient was seen and examined.
[2017-03-06 09:37] LABS: Alcohol <10 mg/dL
[2017-03-06] MEDS: METOPROLOL TARTRATE 50 MG TAB PO SCH ×2 (09:49→19:47)
[2017-03-06] MEDS ORDERED: ALPRAZolam 0.25 MG TAB PO PRN (11:19)
[2017-03-06] MEDS ORDERED: Magnesium Replacement Protocol 1 EACH MISC MISCELLANE PRN (11:21)
[2017-03-06] MEDS ORDERED: Potassium Replacement Protocol 1 EACH MISC MISCELLANE PRN (11:21)
--- NOTE | 2017-03-06 11:24 | P.HPIM ---
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 Patient also was having episodes of nausea for these reason she came back to the emergency room for further evaluation. EKG on admission here showed atrial fibrillation with a rapid ventricular response and right bundle branch block pattern. Chest x-ray revealed stable exam including cardiomegaly with findings of pulmonary vascular congestion and borderline congestive heart failure. Review of Systems Review of system: 14 points review of systems were obtained and were negative except to what were mentioned in the HPI. Past Medical History Past Medical History: Atrial Fibrillation, Heart Failure Additional Past Medical History / Comment(s): pt had transposition of great arteries as an History of Any Multi-Drug Resistant Organisms: ESBL Date of last positivie culture/infection: 02/25/17 ESBL-Klebsiella MDRO Source:: Urine Additional Past Surgical History / Comment(s): open heart surg for transposition of great arteries, CARDIOVERTED FOR A- FIB Past Psychological History: No Psychological Hx Reported, Anxiety Additional Psychological History / Comment(s): Single, lives with family. Tobacco use. Denies injection drug use or other current recreational drug use. Is not working. No experience due to her medical condition. Heavy alcohol use including recent [employer] protocol and progress. No animal exposures Smoking Status: Former smoker Past Alcohol Use History: Rare Past Drug Use History: None Reported - Past Family History Mother Family Medical History: No Reported History Father Family Medical History: No Reported History Medications and Allergies Home Medications Medication Instructions Recorded Confirmed Type Cetirizine HCl [Zyrtec] 10 mg PO DAILY 02/25/17 03/06/17 History Furosemide [Lasix] 40 mg PO DAILY 02/25/17 03/06/17 History Allergies Allergy/AdvReac Type Severity Reaction Status Date / Time No Known Allergies Allergy Verified 03/06/17 10:47 Physical Exam Vitals: Vital Signs Temp Pulse Pulse Resp BP BP Pulse Ox 03/06/17 08:00 116 H 14 106/64 92 L 03/06/17 04:58 98.3 F 112 H 18 112/68 98 03/06/17 04:00 115 H 16 121/81 97 03/06/17 03:53 98.3 F 118 H 20 117/65 98 03/06/17 02:44 142 H 20 130/82 97 03/06/17 01:17 97 F L 77 18 121/79 98 Intake and Output 03/05/17 03/06/17 03/06/17 22:59 06:59 14:59 Intake Total 15 Output Total 300 Balance -285 Intake: Intake, IV Titration 15 Amount Diltiazem 125 mg In 15 Sodium Chloride 0.9% 100 ml @ 5 MG/HR 5 mls/hr IV .Q24H ONE Rx#:[id number] Oral 0 Output: Urine 300 Other: Voiding Method Toilet Toilet # Voids 1 Weight 60.8 kg 60.8 kg Patient Weight 03/07/17 06:59 Weight 60.8 kg General: The patient is awake and alert, in no distress Eye: there is normal conjunctiva bilaterally. Neck: The neck is supple, there is no JVD. Cardiovascular: Normal S1-S2, no S3-S4, no murmurs. Respiratory: Lungs clear to auscultation bilaterally Gastrointestinal: Abdomen is soft, nontender Musculoskeletal: There is +1 pedal edema. Neurological:. Speech is normal. Skin: Skin is warm and dry Results CBC & Chem 7: 03/06/17 01:55 03/06/17 01:55 Labs: Abnormal Lab Results - Last 24 Hours (Table) 03/06/17 03/06/17 03/06/17 Range/Units 01:55 01:55 01:55 Hct 54.3 H (34.0-46.0) % MCV 106.3 H (80.0-100.0) fL MCHC 29.3 L (31.0-37.0) g/dL RDW 15.7 H (11.5-15.5) % Nucleated RBCs 7 H (0-0) /100 WBC PT (9.0-12.0) sec Chloride 92 L (98-107) mmol/L Carbon Dioxide 16 L (22-30) mmol/L BUN 23 H (7-17) mg/dL Creatinine 1.20 H (0.52-1.04) mg/dL Glucose 30 L* (74-99) mg/dL POC Glucose (mg/dL) (75-99) mg/dL Calcium 10.8 H (8.4-10.2) mg/dL Total Bilirubin 15.6 H* (0.2-1.3) mg/dL AST 171 H (14-36) U/L ALT 121 H (9-52) U/L Alkaline Phosphatase 188 H (38-126) U/L Total Creatine Kinase 338 H (30-135) U/L CK-MB (CK-2) 16.9 H* (0.0-2.4) ng/mL Troponin I 0.158 H* (0.000-0.034) ng/mL TSH (0.465-4.680) mIU/L 03/06/17 03/06/17 03/06/17 Range/Units 01:55 03:12 06:12 Hct (34.0-46.0) % MCV (80.0-100.0) fL MCHC (31.0-37.0) g/dL RDW (11.5-15.5) % Nucleated RBCs (0-0) /100 WBC PT 21.4 H (9.0-12.0) sec Chloride (98-107) mmol/L Carbon Dioxide (22-30) mmol/L BUN (7-17) mg/dL Creatinine (0.52-1.04) mg/dL Glucose (74-99) mg/dL POC Glucose (mg/dL) 107 H 112 H (75-99) mg/dL Calcium (8.4-10.2) mg/dL Total Bilirubin (0.2-1.3) mg/dL AST (14-36) U/L ALT (9-52) U/L Alkaline Phosphatase (38-126) U/L Total Creatine Kinase (30-135) U/L CK-MB (CK-2) (0.0-2.4) ng/mL Troponin I (0.000-0.034) ng/mL TSH (0.465-4.680) mIU/L 03/06/17 03/06/17 Range/Units 07:25 07:25 Hct (34.0-46.0) % MCV (80.0-100.0) fL MCHC (31.0-37.0) g/dL RDW (11.5-15.5) % Nucleated RBCs (0-0) /100 WBC PT (9.0-12.0) sec Chloride (98-107) mmol/L Carbon Dioxide (22-30) mmol/L BUN (7-17) mg/dL Creatinine (0.52-1.04) mg/dL Glucose (74-99) mg/dL POC Glucose (mg/dL) (75-99) mg/dL Calcium (8.4-10.2) mg/dL Total Bilirubin (0.2-1.3) mg/dL AST (14-36) U/L ALT (9-52) U/L Alkaline Phosphatase (38-126) U/L Total Creatine Kinase (30-135) U/L CK-MB (CK-2) (0.0-2.4) ng/mL Troponin I 0.195 H* (0.000-0.034) ng/mL TSH 20.200 H (0.465-4.680) mIU/L Thrombosis Risk Factor Assmnt - Choose All That Apply Each Factor Represents 1 point: Swollen legs (current) Other congenital or acquired thrombophilia - If yes, enter type in comment: No Thrombosis Risk Factor Assessment Total Risk Factor Score: 1 Thrombosis Risk Factor Assessment Level: Low Risk Assessment and Plan Plan: 1. Acute systolic heart failure exacerbation: Secondary to noncompliance with Lasix. Currently on IV Lasix. We will continue to monitor closely. 2. Paroxysmal atrial fibrillation not on anticoagulation at home 3. 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 Chronic hepatitis with elevated liver enzymes may be combination of alcoholic hepatitis and possible early cardiac cirrhosis. Patient is following at [facility] 5. Non-thrombotic troponin leak: With no evidence of acute ischemic changes on 12-lead EKG 6. Severe pulmonary hypertension 7. History of heavy alcohol abuse Patient was counseled extensively about compliance with her medication. We will continue diuresis with IV Lasix for now. Replace electrolytes per protocol. Continue telemetry monitoring. Appreciate call center support consultant's recommendations.
[2017-03-06 11:57] LABS: Glucose,Whole Blood 86 mg/dL (75-99)
[2017-03-06] MEDS: CALCIUM CARBONATE 500 MG CHEWABLE PO PRN ×2 (13:13→18:05)
[2017-03-06] MEDS: predniSONE 20 MG TAB PO SCH (13:15)
[2017-03-06 17:47] LABS: Glucose,Whole Blood 103 mg/dL (75-99)
--- NOTE | 2017-03-06 18:14 | CONS ---
DATE OF CONSULTATION: 03/06/2017 Requesting physician: Dr. Jocy Matute. Patient is a 31-year-old white female admitted to the hospital with lower extremities swelling, not feeling well and some shortness of breath. She does have history of heavy alcohol abuse of several years' duration and was recently discharged home about 10 days ago, at which time she was admitted to the hospital with acute alcoholic hepatitis with elevated total bilirubin up to 30 g/dL. She was discharged home on prednisone 40 mg daily. Apparently after going home, she was taking the medication, but did not get her Lasix prescription filled and she started extreme lower extremity swelling and some shortness of breath. Came into the emergency room and was admitted to the hospital. She was also noted to have atrial fibrillation with rapid ventricular heart rate, and cardiology has been consulted. This morning she says she is feeling better. Her shortness of breath is improved. She denies any abdominal pain. Reports no nausea or vomiting. No fever, chills or night sweats. She feels that her urine is a little dark. PAST MEDICAL HISTORY: Significant for A. 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 Follows at [facility]. Heavy alcohol abuse which she quit 10 days ago, anxiety, depression. MEDICATIONS AT HOME: 1. Lasix. 2. Zyrtec. 3. Prednisone. ALLERGIES: None. SOCIAL HISTORY: No smoking, heavy alcohol use, as mentioned above. She quit 10 days ago. PAST SURGICAL HISTORY: Transposition of great vessels as an . REVIEW OF SYSTEMS: CARDIOPULMONARY: No chest pain, some shortness of breath. GENITOURINARY: No dysuria or hematuria. MUSCULOSKELETAL: Unremarkable. SKIN: Unremarkable. ENDOCRINE: Unremarkable. PSYCHIATRIC: Unremarkable. NEUROLOGY: Unremarkable. ENT/vision: Unremarkable. CONSTITUTIONAL: No recent weight loss. No fever. No chills or night sweats. On physical examination, she appears comfortable in no apparent distress. Vitals as are stable. Blood is 112/63, pulse rate 112, temperature 98.6. HEENT: Unremarkable. Conjunctivae pink. Sclerae deeply icteric. Oral cavity, no lesions. NECK: No JVD or lymph node enlargement. CHEST: Clear to auscultation. HEART: Regular rate and rhythm. ABDOMEN: Soft. Liver was palpable 2 cm below the right costal margin. Spleen was not palpable. EXTREMITIES: No pedal edema. SKIN: No rashes. NEURO: Alert and oriented times three. No focal deficits. Labs done at the time of admission to the hospital show a sodium 137, potassium 5.1. BUN 23, creatinine 1.20, WBC 9.5, hemoglobin 15.9, platelets are normal. T-bili 15.6, AST 171, ALT to 121, alk phos 188. INR is 2.2 and serum alcohol less than 10. IMPRESSION: 1. This is a lady with severe acute alcoholic hepatitis who also has a history of heavy alcohol abuse and chronic underlying liver disease was just discharged home from the hospital 10 days ago, at which time she was admitted with acute alcoholic hepatitis and her bilirubin peaked at 12.9 g/dL. She was discharged home on prednisone 40 mg daily and according to the patient has been taking it regularly. She is now admitted the hospital with shortness of breath and lower extremity swelling and was noted to have atrial fibrillation with rapid ventricular heart rate and since being treated is feeling much better. Her last bilirubin was 15 g/dL. 2. Coagulopathy secondary to underlying liver disease. 3. Atrial fibrillation with rapid ventricular heart rate. RECOMMENDATIONS: 1. Continue with prednisone 40 mg daily for total of 28 days. 2. Advance diet as tolerated. 3. Had a lengthy discussion with the patient regarding abstinence from alcohol. 4. We will follow her closely during her hospital stay and repeat labs tomorrow morning. Thank you for this consultation.
[2017-03-06] MEDS: FUROSEMIDE 10 MG/ML 4 ML VIAL IV SCH (19:47)
[2017-03-06] MEDS: FAMOTIDINE 20 MG TAB PO SCH (19:48)
[2017-03-07] MEDS ORDERED: LEVOTHYROXINE 50 MCG TAB PO SCH (06:30)
[2017-03-07 06:32] LABS: Glucose,Whole Blood 122 mg/dL (75-99)
[2017-03-07 07:09] LABS: Anion Gap 10 mmol/L; Blood Urea Nitrogen 29 mg/dL (7-17); Calcium 9.4 mg/dL (8.4-10.2); Carbon Dioxide 30 mmol/L (22-30); Chloride 89 mmol/L (98-107); Glucose 104 mg/dL (74-99); Magnesium 1.9 mg/dL (1.6-2.3); Non-African American GFR(MDRD) >60 (>60 ml/min/1.73 sqM); Potassium 4.1 mmol/L (3.5-5.1); Sodium 129 mmol/L (137-145)
[2017-03-07 07:14] LABS: Aty Lym Flag Slight; CH 31.8; CHCM 33.6; HCT 41.3 % (34.0-46.0); HDW 3.21; Hypochromasia Slight; MCH 32.1 pg (25.0-35.0); MCHC 33.8 g/dL (31.0-37.0); Mean Platelet Volume 7.9; RBC 4.35 m/uL (3.80-5.40); RDW 15.8 % (11.5-15.5); WBC (Perox) 10.48
[2017-03-07 07:16] LABS: MCV 94.9 fL (80.0-100.0)
[2017-03-07 07:51] LABS: Add Differential Manual Differential
[2017-03-07 07:53] LABS: Nucleated Red Blood Cells 0 /100 WBC (0-0); Polychromasia Present; Total Cells Counted 100
[2017-03-07] MEDS ORDERED: POTASSIUM CHLORIDE ER 20 MEQ TAB.ER PO SCH (09:00)
[2017-03-07] MEDS ORDERED: DIGOXIN 250 MCG TAB PO SCH (09:00)
[2017-03-07] MEDS: FAMOTIDINE 20 MG TAB PO SCH (09:53)
[2017-03-07] MEDS: FUROSEMIDE 10 MG/ML 4 ML VIAL IV SCH (09:53)
[2017-03-07] MEDS: METOPROLOL TARTRATE 50 MG TAB PO SCH (09:54)
[2017-03-07] MEDS: predniSONE 20 MG TAB PO SCH (09:54)
[2017-03-07 11:06] VITALS: TEMP 97.6
[2017-03-07 11:37] LABS: Glucose,Whole Blood 102 mg/dL (75-99)
[2017-03-07 12:36] VITALS: BP 100/62; PULSE 105; RESP 17
--- NOTE | 2017-03-07 13:22 | P.DS ---
Providers Date of admission: 03/06/17 03:27 Expected date of discharge: 03/07/17 Attending physician: Abdirizak Gay Consults: 03/06/17 03:30 Consult Physician Routine Consulting Provider: Richard Cruz Consult Reason/Comments: Liver disorder Do you want consulting provider notified?: Yes 03/06/17 07:36 Consult Physician Routine Consulting Provider: Angela Quijano Consult Reason/Comments: CHF Do you want consulting provider notified?: Yes Primary care physician: Jocy Matute Hospital Course: 1. Acute systolic heart failure exacerbation: Secondary to noncompliance with Lasix. Improved with IV Lasix 2. Paroxysmal atrial fibrillation not on anticoagulation at home 3. 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 Chronic hepatitis with elevated liver enzymes may be combination of alcoholic hepatitis and possible early cardiac cirrhosis. Patient is following at [facility]. She was seen and evaluated by GI here in [place]. Recommended 4 weeks of prednisone 40 mg. 5. Non-thrombotic troponin leak: With no evidence of acute ischemic changes on 12-lead EKG 6. Severe pulmonary hypertension 7. History of heavy alcohol abuse Patient was noted to have evidence of subclinical hypothyroidism with elevated TSH and normal free T4. Her thyroid function test a week ago was completely normal. I believe that this is of no clinical significance. I would recommend to repeat thyroid function test in 2 weeks before starting thyroid replacement therapy. Patient is generally a symptomatic. Plan - Discharge Summary New Discharge Prescriptions: Continue Furosemide [Lasix] 40 mg PO DAILY predniSONE 40 mg PO DAILY #60 tab ALPRAZolam [Xanax] 0.25 mg PO QID PRN tab PRN Reason: Anxiety Famotidine [Pepcid] 20 mg PO BID tab Metoprolol Tartrate [Lopressor] 25 mg PO BID tab Multivitamins, Thera [Multivitamin (formulary)] 1 each PO DAILY@1200 tab Potassium Chloride ER [K-Dur 20] 20 meq PO DAILY tab Discontinued Cetirizine HCl [Zyrtec] 10 mg PO DAILY Sulfamethox-Tmp 800-160Mg [Bactrim DS 800-160 mg] 1 tab PO Q12HR #10 tab Discharge Medication List Furosemide [Lasix] 40 mg PO DAILY 02/25/17 [History] predniSONE 40 mg PO DAILY #60 tab 02/26/17 [Rx] ALPRAZolam [Xanax] 0.25 mg PO QID PRN tab 03/03/17 [Rx] Famotidine [Pepcid] 20 mg PO BID tab 03/03/17 [Rx] Metoprolol Tartrate [Lopressor] 25 mg PO BID tab 03/03/17 [Rx] Multivitamins, Thera [Multivitamin (formulary)] 1 each PO DAILY@1200 tab [Rx] Potassium Chloride ER [K-Dur 20] 20 meq PO DAILY tab 03/03/17 [Rx] Follow up Appointment(s)/Referral(s): Jocy Matute DO [Primary Care Provider] - 1-2 days Discharge Disposition: HOME SELF-CARE
== END 2017-03-07 14:05 | disposition home or self-care (01) | DRG 292 ==
LOC: EC 01:07 → 6SEL 03:27
PROVIDERS: ADMIT Internal Medicine; ATTEND Internal Medicine
DX: I50.23 Acute on chronic systolic (congestive) heart failure (principal); D68.9 Coagulation defect, unspecified; I27.2 Other secondary pulmonary hypertension; K70.10 Alcoholic hepatitis without ascites; K70.30 Alcoholic cirrhosis of liver without ascites; E03.9 Hypothyroidism, unspecified; I45.10 Unspecified right bundle-branch block; I48.0 Paroxysmal atrial fibrillation; Z79.899 Other long term (current) drug therapy; Z91.14 Patient's other noncompliance with medication regimen; Z87.891 Personal history of nicotine dependence; F10.21 Alcohol dependence, in remission
CPT/HCPCS: 36415; 71020; 80048; 80053; 80320; 82550; 82553; 83735; 83880; 84439; 84443; 84484; 85025; 85610; 85730; 93005; 94760; 96365; 96366; 96372; 96375; 99285

== ENCOUNTER → 2017-09-29 | Outpatient (CLI) | payer OTHER ==
--- NOTE | 2017-09-29 08:09 | US ---
EXAMINATION TYPE: US liver DATE OF EXAM: 09/29/2017 COMPARISON: US December 06, 2016 CLINICAL HISTORY: K70.10 Alcoholic Hepatitis Without Ascites. EXAM MEASUREMENTS: Liver Length: 13.6 cm Gallbladder Wall: 0.5 cm CBD: 0.2 cm Right Kidney: 11.9 x 3.2 x 4.1 cm Pancreas: Tail obscured by overlying bowel gas Liver: no masses seen Gallbladder: wall slightly thick, seen on previous as well Evidence for sonographic García's sign: no CBD: wnl Right Kidney: Inferior pole obscured by overlying bowel gas Visualized pancreas is unremarkable. IVC is seen near hepatic dome. Visualized liver is slightly hete rogeneously hyperechoic but shows no worrisome intrahepatic mass or ductal dilatation. No surroundin g ascites is noted. Common bile duct is unremarkable. Gallbladder is seen without shadowing mobile ga llstones. Gallbladder wall is mildly thickened at 4 to 5 mm. No pericholecystic fluid is noted. Visua lized portion of right kidney shows no gross hydronephrosis. IMPRESSION: No worrisome new intrahepatic mass or intrahepatic ductal dilatation is seen.
== END | disposition home or self-care (01) ==
LOC: RADUSWWP 06:48
PROVIDERS: ATTEND Internal Medicine
DX: K70.10 Alcoholic hepatitis without ascites (principal); Q20.3 Discordant ventriculoarterial connection; I47.1 Supraventricular tachycardia; I51.7 Cardiomegaly; I27.20 Pulmonary hypertension, unspecified; I51.9 Heart disease, unspecified
CPT/HCPCS: 76705

== ENCOUNTER 2017-12-19 21:24 | Observation (INO) | payer OTHER ==
[2017-12-19] MEDS ORDERED: SODIUM CHLORIDE 0.9% 1,000 ML IV STA (21:25)
--- NOTE | 2017-12-19 21:34 | ED ---
General Adult HPI - General Chief complaint: Arrhythmia/Palpitations Stated complaint: Cardiac Issues Time Seen by Provider: 12/19/17 21:25 Source: patient, EMS, RN notes reviewed, old records reviewed Mode of arrival: EMS - History of Present Illness Initial comments: This is a 32-year-old female to the ER for evaluation. She presents today for evaluation regarding unresponsive event. History obtained from EMS. EMS states on arrival patient was unresponsive they did find patient to be in ventricular tachycardia and cardioverted with improvement. Patient states she continues to feel anxious with palpitations. No recent change in medications. Patient is a significant heart history with surgical history as a child, on multiple medications - Related Data Home Medications Medication Instructions Recorded Confirmed Furosemide [Lasix] 40 mg PO DAILY 02/25/17 12/19/17 Digoxin [Digitek] 125 mcg PO DAILY 12/19/17 12/19/17 LORazepam [Ativan] 0.5 mg PO DAILY PRN 12/19/17 12/19/17 Meloxicam [Mobic] 7.5 mg PO DAILY 12/19/17 12/19/17 Metoprolol Succinate (ER) [Toprol 50 mg PO DAILY 12/19/17 12/19/17 Xl] Spironolactone [Aldactone] 25 mg PO DAILY 12/19/17 12/19/17 Warfarin [Coumadin] 2.5 mg PO HS 12/19/17 12/19/17 Previous Rx's Medication Instructions Recorded Potassium Chloride ER [K-Dur 20] 20 meq PO DAILY tab 03/03/17 Allergies Allergy/AdvReac Type Severity Reaction Status Date / Time No Known Allergies Allergy Verified 12/19/17 22:02 Review of Systems ROS Statement: Those systems with pertinent positive or pertinent negative responses have been documented in the HPI. ROS Other: All systems not noted in ROS Statement are negative. 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 History of Any Multi-Drug Resistant Organisms: ESBL Date of last positivie culture/infection: 02/25/17 ESBL-Klebsiella MDRO Source:: Urine Additional Past Surgical History / Comment(s): open heart surg for transposition of great arteries, CARDIOVERTED FOR A- FIB Past Psychological History: No Psychological Hx Reported, Anxiety Smoking Status: Former smoker Past Alcohol Use History: Rare Past Drug Use History: None Reported - Past Family History Mother Family Medical History: No Reported History Father Family Medical History: No Reported History General Exam General appearance: alert, in no apparent distress, anxious Head exam: Present: atraumatic, normocephalic, normal inspection Eye exam: Present: normal appearance, PERRL, EOMI. Absent: scleral icterus, conjunctival injection, periorbital swelling ENT exam: Present: normal exam, mucous membranes moist Neck exam: Present: normal inspection. Absent: tenderness, meningismus, lymphadenopathy Respiratory exam: Present: normal lung sounds bilaterally. Absent: respiratory distress, wheezes, rales, rhonchi, stridor Cardiovascular Exam: Present: tachycardia, irregular rhythm, normal heart sounds. Absent: systolic murmur, diastolic murmur, rubs, gallop, clicks GI/Abdominal exam: Present: soft, normal bowel sounds. Absent: distended, tenderness, guarding, rebound, rigid Extremities exam: Present: normal inspection, full ROM, normal capillary refill. Absent: tenderness, pedal edema, joint swelling, calf tenderness Back exam: Present: normal inspection Neurological exam: Present: alert, oriented X3, CN II-XII intact Psychiatric exam: Present: normal affect, normal mood Skin exam: Present: warm, dry, intact, normal color. Absent: rash Course Vital Signs 12/19/17 12/19/17 12/19/17 21:25 22:00 22:15 Temperature 98.1 F Pulse Rate 141 H 144 H 115 H Respiratory 16 22 22 Rate Blood Pressure 137/78 123/74 125/83 O2 Sat by Pulse 98 97 97 Oximetry 12/19/17 22:30 Temperature Pulse Rate 110 H Respiratory 22 Rate Blood Pressure 123/77 O2 Sat by Pulse 97 Oximetry - Reevaluation(s) Reevaluation #1: 12/19/17 22:43 Medical record is reviewed transferring paperwork is reviewed, rhythm strip as an outpatient reviewed, patient was cardioverted in the field, currently in A. fib. Patient was unresponsive no improved EKG Findings - EKG Comments: EKG Findings:: EKG shows A. fib with RVR rate 141, QRS 158, QTC 545 Medical Decision Making - Medical Decision Making 32 female the ER for evaluation. Patient coming in for evaluation of arrhythmia. Patient to be admitted for monitoring of cardiopulmonary status, heart rate control. - Lab Data Result diagrams: 12/19/17 21:30 12/19/17 21:30 Lab Results 12/19/17 12/19/17 12/19/17 Range/Units 21:30 21:30 21:30 WBC 8.7 (3.8-10.6) k/uL RBC 4.65 (3.80-5.40) m/uL Hgb 14.7 (11.4-16.0) gm/dL Hct 45.2 (34.0-46.0) % MCV 97.1 (80.0-100.0) fL MCH 31.7 (25.0-35.0) pg MCHC 32.6 (31.0-37.0) g/dL RDW 15.2 (11.5-15.5) % Plt Count 262 (150-450) k/uL Neutrophils % 62 % Lymphocytes % 29 % Monocytes % 6 % Eosinophils % 1 % Basophils % 1 % Neutrophils # 5.4 (1.3-7.7) k/uL Lymphocytes # 2.5 (1.0-4.8) k/uL Monocytes # 0.5 (0-1.0) k/uL Eosinophils # 0.1 (0-0.7) k/uL Basophils # 0.1 (0-0.2) k/uL PT 18.5 H (9.0-12.0) sec INR 2.0 H (<1.2) APTT 26.5 (22.0-30.0) sec Sodium 142 (137-145) mmol/L Potassium 3.7 (3.5-5.1) mmol/L Chloride 96 L (98-107) mmol/L Carbon Dioxide 22 (22-30) mmol/L Anion Gap 24 mmol/L BUN 6 L (7-17) mg/dL Creatinine 0.80 (0.52-1.04) mg/dL Est GFR (CKD-EPI)AfAm >90 (>60 ml/min/1.73 sqM) Est GFR (CKD-EPI)NonAf >90 (>60 ml/min/1.73 sqM) Glucose 135 H (74-99) mg/dL Calcium 10.4 H (8.4-10.2) mg/dL Phosphorus 4.4 (2.5-4.5) mg/dL Magnesium 1.4 L (1.6-2.3) mg/dL Total Bilirubin 4.2 H (0.2-1.3) mg/dL AST 51 H (14-36) U/L ALT 22 (9-52) U/L Alkaline Phosphatase 156 H (38-126) U/L Total Protein 7.8 (6.3-8.2) g/dL Albumin 4.8 (3.5-5.0) g/dL Digoxin 0.6 ng/mL Disposition Clinical Impression: Atrial fibrillation, Tachycardia, Palpitations Disposition: ADMITTED IP TO THIS HOSP Condition: Fair Referrals: Candie Owens MD [Primary Care Provider] - 1-2 days
[2017-12-19 21:58] LABS: Basophils # (A) 0.1 k/uL (0-0.2); Basophils % (A) 1 %; Eosinophils # (A) 0.1 k/uL (0-0.7); Eosinophils % (A) 1 %; HCT 45.2 % (34.0-46.0); HGB 14.7 gm/dL (11.4-16.0); Lymphocytes # (A) 2.5 k/uL (1.0-4.8); Lymphocytes % (A) 29 %; MCH 31.7 pg (25.0-35.0); MCHC 32.6 g/dL (31.0-37.0); MCV 97.1 fL (80.0-100.0); Mean Platelet Volume 7.4; Monocytes # (A) 0.5 k/uL (0-1.0); Monocytes % (A) 6 %; Neutrophils # (A) 5.4 k/uL (1.3-7.7); Neutrophils % (A) 62 %; Platelet Count 262 k/uL (150-450); RBC 4.65 m/uL (3.80-5.40); RDW 15.2 % (11.5-15.5); WBC 8.7 k/uL (3.8-10.6)
[2017-12-19] MEDS: METOPROLOL TARTRATE 5 MG/5 ML VIAL IVP SCH ×2 (21:58→22:18)
[2017-12-19] MEDS ORDERED: LORazepam 2 MG/ML INJ IV STA (22:06)
[2017-12-19 22:11] LABS: ALT 22 U/L (9-52); AST 51 U/L (14-36); Albumin 4.8 g/dL (3.5-5.0); Alkaline Phosphatase 156 U/L (38-126); Anion Gap 24 mmol/L; Blood Urea Nitrogen 6 mg/dL (7-17); Calcium 10.4 mg/dL (8.4-10.2); Carbon Dioxide 22 mmol/L (22-30); Chloride 96 mmol/L (98-107); Digoxin 0.6 ng/mL; Glucose 135 mg/dL (74-99); Magnesium 1.4 mg/dL (1.6-2.3); Partial Thromboplastin Time 26.5 sec (22.0-30.0); Phosphorus 4.4 mg/dL (2.5-4.5); Potassium 3.7 mmol/L (3.5-5.1); Prothrombin Time 18.5 sec (9.0-12.0); Sodium 142 mmol/L (137-145); Total Bilirubin 4.2 mg/dL (0.2-1.3); Total Protein 7.8 g/dL (6.3-8.2)
[2017-12-19] MEDS ORDERED: NITROGLYCERIN SL TABS 0.4 MG TAB SUBLINGUAL PRN (22:41)
[2017-12-19 22:42] LABS: Creatine Kinase MB 2.2 ng/mL (0.0-2.4)
[2017-12-19] MEDS ORDERED: POTASSIUM BICARBONATE/CIT AC 20 MEQ TABLET.EFF PO ONE (22:44)
[2017-12-19] MEDS ORDERED: MAGNESIUM OXIDE 400 MG TAB PO STA (22:45)
[2017-12-19 22:46] LABS: Troponin I 0.052 ng/mL (0.000-0.034)
[2017-12-19] MEDS: MAGNESIUM SULFATE-D5W PMX 1 GM in DEXTROSE/WATER 1 100ML.BAG IVPB SCH (23:27)
[2017-12-20 00:24] VITALS: BMI 21.9
[2017-12-20] MEDS: LORazepam 0.5 MG TAB PO PRN ×2 (00:44→06:13)
[2017-12-20] MEDS: MAGNESIUM SULFATE-D5W PMX 1 GM in DEXTROSE/WATER 1 100ML.BAG IVPB SCH ×3 (00:44→01:38)
[2017-12-20 03:29] LABS: Cholesterol 93 mg/dL (<200); HDL Cholesterol 36 mg/dL (40-60); LDL Cholesterol,Calculated 37 mg/dL (0-99); Triglycerides 102 mg/dL (<150)
[2017-12-20 04:22] LABS: Creatine Kinase MB 2.7 ng/mL (0.0-2.4); Troponin I 0.191 ng/mL (0.000-0.034)
[2017-12-20] MEDS: SODIUM CHLORIDE 0.9% 1,000 ML IV SCH ×2 (04:36→11:27)
[2017-12-20] MEDS: LORazepam 1 MG TAB PO PRN ×2 (08:26→20:52)
[2017-12-20] MEDS: METOPROLOL TARTRATE 50 MG TAB PO SCH ×2 (08:26→20:52)
--- NOTE | 2017-12-20 08:59 | CONS ---
CONSULTATION Anita is a 32-year-old lady with history of chronic atrial fibrillation, transposition of great vessels, status post surgery at the age of 3 months, comes to the hospital having had sustained palpitations at home. When the patient first was seen by EMS, she was in a wide-complex tachycardia. They shocked her. She appeared like she was in atrial tachycardia and simply converted to atrial fibrillation afterwards and has remained in atrial fibrillation with poorly controlled ventricular rate. At the time of my evaluation this morning, she is in A. fib. Heart rates are around 110 beats per minute. She seems somewhat anxious. She has a history of heavy alcohol abuse and was drinking on Wednesday. She follows at the [facility] where she states that she had been cardioverted once. PAST MEDICAL HISTORY: Past medical history is significant for transposition of great vessels and chronic atrial fibrillation. It is unclear if the patient is in sinus rhythm regularly. MEDICATIONS: Medications include Coumadin, Aldactone, Mobic, Ativan, Digitek, Toprol-XL, K-Dur, and Lasix. ALLERGIES: There are no known drug allergies. FAMILY HISTORY: Family history is negative for premature coronary artery disease. SOCIAL HISTORY: Social history is negative for smoking, EtOH abuse or drug abuse. REVIEW OF SYSTEMS: HEENT is unremarkable. CARDIAC: As described above. RESPIRATORY: Negative. GI: Negative. GENITOURINARY: Negative. MUSCULOSKELETAL: Significant for arthritis. PSYCHOSOCIAL: Negative. ENDOCRINE: Negative. HEMATOLOGICAL: Negative. DERM: Negative. CONSTITUTIONAL: Negative. ONCOLOGICAL negative. PHYSICAL EXAMINATION: On exam, comfortable at rest. Heart rate is 110 beats per minute, blood pressure is 123/82, respiratory rate is 18, O2 sat is 95% on 2 L. Afebrile. There is no jugular venous distention. Carotid upstroke is normal. Chest exam reveals good air entry bilaterally. Heart exam reveals first and second heart sounds. Systolic murmur at the apex. Abdomen is soft. Examination of extremities did not reveal any edema. Peripheral pulses are felt. LAB: Labs show a hemoglobin of 14.7, platelet count is 262. INR is 2. Potassium is 3.7, creatinine is 0.8. Tropes are elevated at 0.05 and 0.1, probably related to the defibrillation that she received and the fast heart rate. ASSESSMENT: 1. Chronic atrial fibrillation with poorly controlled ventricular rate. 2. Atrial tachycardia. 3. History of transposition of great vessels, status post surgery. 4. Elevated troponin. PLAN: I am going to continue the Coumadin. Continue the beta blockers, digoxin. I am concerned that she may go through alcohol withdrawal. I am going to let the primary handle this. I will obtain a 2D echo. Once heart rate is well controlled, she can be discharged home and she will have outpatient follow up with her own respiratory technician at [facility]. JOSE ANGEL / CAROLYN: [id number] /
[2017-12-20] MEDS ORDERED: MELOXICAM 7.5 MG TAB PO SCH ×2 (09:00→21:00)
[2017-12-20] MEDS ORDERED: ASPIRIN 325 MG TAB PO SCH (09:00)
[2017-12-20 09:55] LABS: Creatine Kinase MB 3.4 ng/mL (0.0-2.4)
[2017-12-20] MEDS: FUROSEMIDE 40 MG TAB PO SCH (09:55)
[2017-12-20] MEDS: POTASSIUM CHLORIDE ER 20 MEQ TAB.ER PO SCH (09:55)
[2017-12-20] MEDS: DIGOXIN 125 MCG TAB PO SCH (09:55)
[2017-12-20 09:56] LABS: Troponin I 0.108 ng/mL (0.000-0.034)
[2017-12-20] MEDS: SPIRONOLACTONE 25 MG TAB PO SCH (09:57)
--- NOTE | 2017-12-20 11:57 | ECHOF ---
Referral Reason:afib MEASUREMENTS -------- HEIGHT: 160.0 cm WEIGHT: 55.3 kg BP: 107/73 RVIDd: 4.2 cm (< 3.3) IVSd: 0.7 cm (0.6 - 1.1) LVIDd: 4.8 cm (3.9 - 5.3) LVPWd: 1.0 cm (0.6 - 1.1) IVSs: 0.9 cm LVIDs: 4.2 cm LVPWs: 1.1 cm Ao Diam: 3.0 cm (2.0 - 3.7) AV Cusp: 1.6 cm (1.5 - 2.6) LA Diam: 3.3 cm (2.7 - 3.8) AR PHT: 167 ms RAP: 5.00 mmHg RVSP: 65.14 mmHg FINDINGS -------- Atrial fibrillation. This was a technically difficult study with suboptimal views. Pt had transposition of the great vesse ls surgery. The left ventricular size is normal. Left ventricular wall thickness is normal. Overall left vent ricular systolic function is moderate-severely impaired with, an EF between 30 - 35 %. There is par adoxical/dysynergic septal motion consistent with right ventricular volume overload and/or elevated r ight ventricular end-diastolic pressure. The right ventricle is severely enlarged. The left atrium is normal in size. RA appears enlarged. There is [id number] aortic regurgitation. The mitral valve leaflets are mildly thickened. Mild mitral annular calcification present. Mild m itral regurgitation is present. Moderate tricuspid regurgitation present. There is moderate pulmonary hypertension. The right анна tricular systolic pressure, as measured by Doppler, is 65.14mmHg. Pulmonic valve appears structurally normal. The aortic root size is normal. The pericardium is normal. CONCLUSIONS -------- 1. Atrial fibrillation. 2. This was a technically difficult study with suboptimal views. Pt had transposition of the great ve ssels surgery. 3. The left ventricular size is normal. 4. Left ventricular wall thickness is normal. 5. Overall left ventricular systolic function is moderate-severely impaired with, an EF between 30 - 35 %. 6. There is paradoxical/dysynergic septal motion consistent with right ventricular volume overload an d/or elevated right ventricular end-diastolic pressure. 7. The right ventricle is severely enlarged. 8. The left atrium is normal in size. 9. RA appears enlarged. 10. There is [id number] aortic regurgitation. 11. The mitral valve leaflets are mildly thickened. 12. Mild mitral annular calcification present. 13. Mild mitral regurgitation is present. 14. Moderate tricuspid regurgitation present. 15. There is moderate pulmonary hypertension. 16. The right ventricular systolic pressure, as measured by Doppler, is 65.14mmHg. 17. Pulmonic valve appears structurally normal. 18. The aortic root size is normal. 19. The pericardium is normal. TRAY DRIER OPERATOR: Krystina Petre RDCS
--- NOTE | 2017-12-20 12:06 | P.HPIM ---
History of Present Illness 32-year-old female to the ER for evaluation. She presents today for evaluation regarding unresponsive event. History obtained from EMS. EMS states on arrival patient was unresponsive they did find patient to be in ventricular tachycardia and cardioverted with improvement. Patient states she continues to feel anxious with palpitations. No recent change in medications. Patient is a significant heart history with surgical history as a child, on multiple medications presently denied any chest pain denied any nausea vomiting patient had mildly elevated troponin probably because of atrial fibrillation patient was a valid by cardiology if her heart rate stays below 110 upon ambulation patient will be discharged on else patient will need to be monitored for heart rate. no changes in her medications are being made. Patient denied alcohol use on regular basis but she does have chronic alcohol limbs history patient's last withdrawal was about 3 days ago as per the patient and she is not concerned about any withdrawals at this time. Review of Systems REVIEW OF SYSTEMS: CONSTITUTIONAL: No fever, no malaise, no fatigue. HEENT: No recent visual problems or hearing problems. Denied any sore throat. CARDIOVASCULAR: No chest pain, orthopnea, PND, no palpitations, PULMONARY: No shortness of breath, no cough, no hemoptysis. GASTROINTESTINAL: No diarrhea, no nausea, no vomiting, no abdominal pain. Normoactive bowel sounds. NEUROLOGICAL: No headaches, no weakness, no numbness. HEMATOLOGICAL: Denies any bleeding or petechiae. GENITOURINARY: Denies any burning micturition, frequency, or urgency. MUSCULOSKELETAL/RHEUMATOLOGICAL: Denies any joint pain, swelling, or any muscle pain. ENDOCRINE: Denies any polyuria or polydipsia. The rest of the 14-point review of systems is negative. 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 Tobacco use. Denies injection drug use or other current recreational drug use. Is not working. No experience. No animal exposures. etoh Smoking Status: Former smoker Past Alcohol Use History: Rare Past Drug Use History: None Reported - Past Family History Mother Family Medical History: No Reported History Father Family Medical History: No Reported History Medications and Allergies Home Medications Medication Instructions Recorded Confirmed Type Furosemide [Lasix] 40 mg PO DAILY 02/25/17 12/19/17 History Potassium Chloride ER [K-Dur 20] 20 meq PO DAILY tab 03/03/17 12/19/17 Rx Digoxin [Digitek] 125 mcg PO DAILY 12/19/17 12/19/17 History LORazepam [Ativan] 0.5 mg PO DAILY PRN 12/19/17 12/19/17 History Meloxicam [Mobic] 7.5 mg PO DAILY 12/19/17 12/19/17 History Metoprolol Succinate (ER) [Toprol 50 mg PO DAILY 12/19/17 12/19/17 History Xl] Spironolactone [Aldactone] 25 mg PO DAILY 12/19/17 12/19/17 History Warfarin [Coumadin] 2.5 mg PO HS 12/19/17 12/19/17 History Allergies Allergy/AdvReac Type Severity Reaction Status Date / Time No Known Allergies Allergy Verified 12/19/17 22:02 Physical Exam Vitals: Vital Signs Temp Pulse Pulse Resp BP BP Pulse Ox 12/20/17 08:00 97 F L 107 H 19 107/73 94 L 12/20/17 04:22 95 12/20/17 02:00 97.2 F L 113 H 18 123/82 95 12/19/17 23:30 98.0 F 113 H 22 117/75 97 12/19/17 22:59 98.2 F 114 H 20 111/77 97 12/19/17 22:30 110 H 22 123/77 97 12/19/17 22:15 115 H 22 125/83 97 12/19/17 22:00 144 H 22 123/74 97 12/19/17 21:25 98.1 F 141 H 16 137/78 98 Intake and Output 12/19/17 12/20/17 12/20/17 22:59 06:59 14:59 Intake Total 237 Balance 237 Intake: Oral 237 Other: Voiding Method Toilet Weight 56.245 kg 55.4 kg PHYSICAL EXAMINATION: GENERAL: The patient is alert and oriented x3, not in any acute distress. Well developed, well nourished. HEENT: Pupils are round and equally reacting to light. EOMI. No scleral icterus. No conjunctival pallor. Normocephalic, atraumatic. No pharyngeal erythema. No thyromegaly. CARDIOVASCULAR: S1 and S2 present. No murmurs, rubs, or gallops. PULMONARY: Chest is clear to auscultation, no wheezing or crackles. ABDOMEN: Soft, nontender, nondistended, normoactive bowel sounds. No palpable organomegaly. MUSCULOSKELETAL: No joint swelling or deformity. EXTREMITIES: No cyanosis, clubbing, or pedal edema. NEUROLOGICAL: Gross neurological examination did not reveal any focal deficits. SKIN: No rashes. Results CBC & Chem 7: 12/19/17 21:30 12/19/17 21:30 Labs: Abnormal Lab Results - Last 24 Hours (Table) 12/19/17 12/19/17 12/19/17 Range/Units 21:30 21:30 21:30 PT 18.5 H (9.0-12.0) sec INR 2.0 H (<1.2) Chloride 96 L (98-107) mmol/L BUN 6 L (7-17) mg/dL Glucose 135 H (74-99) mg/dL Calcium 10.4 H (8.4-10.2) mg/dL Magnesium 1.4 L (1.6-2.3) mg/dL Total Bilirubin 4.2 H (0.2-1.3) mg/dL AST 51 H (14-36) U/L Alkaline Phosphatase 156 H (38-126) U/L CK-MB (CK-2) (0.0-2.4) ng/mL Troponin I 0.052 H* (0.000-0.034) ng/mL HDL Cholesterol (40-60) mg/dL 12/20/17 12/20/17 12/20/17 Range/Units 02:50 02:50 08:39 PT (9.0-12.0) sec INR (<1.2) Chloride (98-107) mmol/L BUN (7-17) mg/dL Glucose (74-99) mg/dL Calcium (8.4-10.2) mg/dL Magnesium (1.6-2.3) mg/dL Total Bilirubin (0.2-1.3) mg/dL AST (14-36) U/L Alkaline Phosphatase (38-126) U/L CK-MB (CK-2) 2.7 H* 3.4 H* (0.0-2.4) ng/mL Troponin I 0.191 H* 0.108 H* (0.000-0.034) ng/mL HDL Cholesterol 36 L (40-60) mg/dL 12/20/17 Range/Units 08:39 PT (9.0-12.0) sec INR (<1.2) Chloride (98-107) mmol/L BUN (7-17) mg/dL Glucose (74-99) mg/dL Calcium (8.4-10.2) mg/dL Magnesium 2.6 H (1.6-2.3) mg/dL Total Bilirubin (0.2-1.3) mg/dL AST (14-36) U/L Alkaline Phosphatase (38-126) U/L CK-MB (CK-2) (0.0-2.4) ng/mL Troponin I (0.000-0.034) ng/mL HDL Cholesterol (40-60) mg/dL Assessment and Plan Plan: -Atrial fibrillation with rapid ventricular rate: Patient is on Coumadin therapy with concomitant Coumadin will be continued will repeat INR tomorrow heart rate is still not well controlled because of which will hold the discharge. Patient does have history of heart failure not in CHF exacerbation at this time. -Can start failure chronic systolic dysfunction without any acute exacerbation IV fluids will be discontinued patient will be resumed on oral Lasix will obtain a chest x-ray. Clinically patient doesn't have any JVD. -Alcohol abuse history: We will monitor for any DVTs -History of transposition of great vessels. And patient is status post surgery for that. -
--- NOTE | 2017-12-20 12:25 | XR ---
EXAMINATION TYPE: XR chest 1V DATE OF EXAM: 12/20/2017 COMPARISON: Prior chest 03/06/2017 HISTORY: Congestive heart failure TECHNIQUE: Single frontal view of the chest is obtained. FINDINGS: The heart is enlarged. There is an overlying defibrillator pad. Patient is post median luz rnotomy. No evident pneumothorax or pleural effusion. Interstitium is increased. There are overlying cardiac leads. Pulmonary vascularity and omar show a similar appearance. IMPRESSION: Correlate for possible pulmonary venous hypertension and interstitial edema, possible un derlying pulmonary artery hypertension. Follow-up recommended.
[2017-12-20 12:26] VITALS: RESP 18
[2017-12-20] MEDS ORDERED: ONDANSETRON 4 MG/2 ML VIAL IVP PRN (15:31)
[2017-12-20] MEDS ORDERED: WARFARIN 2.5 MG TAB PO SCH (21:00)
[2017-12-21 06:23] LABS: HCT 37.8 % (34.0-46.0); HGB 13.1 gm/dL (11.4-16.0); MCHC 34.8 g/dL (31.0-37.0); MCV 97.8 fL (80.0-100.0); Macrocytosis Slight; Mean Platelet Volume 7.6; Platelet Count 178 k/uL (150-450); RBC 3.86 m/uL (3.80-5.40); RDW 15.4 % (11.5-15.5); WBC 7.7 k/uL (3.8-10.6)
[2017-12-21 06:31] LABS: INR 2.8 (<1.2)
[2017-12-21 06:32] LABS: Prothrombin Time 25.3 sec (9.0-12.0)
[2017-12-21 06:47] LABS: Calcium 9.6 mg/dL (8.4-10.2); Potassium 5.1 mmol/L (3.5-5.1)
[2017-12-21] MEDS: SPIRONOLACTONE 25 MG TAB PO SCH (08:58)
[2017-12-21] MEDS: FUROSEMIDE 40 MG TAB PO SCH (08:58)
[2017-12-21] MEDS: METOPROLOL TARTRATE 50 MG TAB PO SCH (08:58)
[2017-12-21] MEDS: POTASSIUM CHLORIDE ER 20 MEQ TAB.ER PO SCH (08:58)
[2017-12-21] MEDS: DIGOXIN 125 MCG TAB PO SCH (08:58)
[2017-12-21 11:47] VITALS: BP 104/61; PULSE 64; TEMP 96.9
--- NOTE | 2017-12-21 13:31 | P.DS ---
Providers Date of admission: 12/19/17 22:41 Attending physician: Carlos Melchor Consults: 12/19/17 22:41 Consult Physician Urgent Consulting Provider: Carolann Medellin Consult Reason/Comments: afib Do you want consulting provider notified?: Yes Primary care physician: Roman Schreiber Hospital Course: Patient was admitted for atrial fibrillation with rapid ventricular rate which is secondary to her anxiety patient doesn't have any alcohol withdrawals patient is otherwise clinically doing well will be discharged today no changes in medications are being made patient's potassium is 5.1 because of which I'm repeating the basic metabolic profile to be tested in 3 days INR to be tested in 3 days and results to be faxed to primary care physician's office. PHYSICAL EXAMINATION: GENERAL: The patient is alert and oriented x3, not in any acute distress. Well developed, well nourished. HEENT: Pupils are round and equally reacting to light. EOMI. No scleral icterus. No conjunctival pallor. Normocephalic, atraumatic. No pharyngeal erythema. No thyromegaly. CARDIOVASCULAR: S1 and S2 present. No murmurs, rubs, or gallops. PULMONARY: Chest is clear to auscultation, no wheezing or crackles. ABDOMEN: Soft, nontender, nondistended, normoactive bowel sounds. No palpable organomegaly. MUSCULOSKELETAL: No joint swelling or deformity. EXTREMITIES: No cyanosis, clubbing, or pedal edema. NEUROLOGICAL: Gross neurological examination did not reveal any focal deficits. SKIN: No rashes. For all other chronic medical problems hospitalization course please refer to my dictation of H&P from yesterday. Patient Condition at Discharge: Fair Plan - Discharge Summary New Discharge Prescriptions: Continue Furosemide [Lasix] 40 mg PO DAILY Potassium Chloride ER [K-Dur 20] 20 meq PO DAILY tab Warfarin [Coumadin] 2.5 mg PO HS Spironolactone [Aldactone] 25 mg PO DAILY Meloxicam [Mobic] 7.5 mg PO DAILY Digoxin [Digitek] 125 mcg PO DAILY Metoprolol Succinate (ER) [Toprol XL] 50 mg PO DAILY LORazepam [Ativan] 0.5 mg PO BID #15 Discharge Medication List Furosemide [Lasix] 40 mg PO DAILY 02/25/17 [History] Potassium Chloride ER [K-Dur 20] 20 meq PO DAILY tab 03/03/17 [Rx] Digoxin [Digitek] 125 mcg PO DAILY 12/19/17 [History] Meloxicam [Mobic] 7.5 mg PO DAILY 12/19/17 [History] Metoprolol Succinate (ER) [Toprol XL] 50 mg PO DAILY 12/19/17 [History] Spironolactone [Aldactone] 25 mg PO DAILY 12/19/17 [History] Warfarin [Coumadin] 2.5 mg PO HS 12/19/17 [History] LORazepam [Ativan] 0.5 mg PO BID #15 12/21/17 [Rx] Follow up Appointment(s)/Referral(s): Candie Owens MD [Primary Care Provider] - 12/30/17 1:00 pm () Juan Darling MD [REFERRING] - 01/03/18 2:10 pm (With [facility]) Ambulatory/Diagnostic Orders: Basic Metabolic Panel [LAB.AMB] Time Frame: 3 Days, Location: Determined By Patient Prothrombin Time INR [LAB.AMB] Time Frame: 3 Days, Location: Determined By Patient Patient Instructions/Handouts: A-fib (Atrial Fibrillation) (DC), At-Risk Alcohol Use (GEN), Vitamin K in Foods (DC), Safe Use of Anticoagulants (DC) Discharge Disposition: HOME SELF-CARE
--- NOTE | 2017-12-21 15:11 | P.PN ---
Subjective Progress Note Date: 12/21/17 This is a pleasant 32-year-old female with history of atrial fibrillation, transposition of great vessels, status post surgery at the age of 3 months. Presented to the hospital with sustained palpitations at home. Upon initial presentation, EMS found the patient to be in a wide-complex tachycardia and she was cardioverted. She appeared to be in atrial tachycardia and number to atrial fibrillation afterwards and remained in atrial fibrillation with poorly ventricular response. This morning patient appears to be in a sinus tachycardia or an atrial tachycardia. She is feeling quite a bit better. Denies further complaints of palpitations and has no shortness of breath or chest discomfort. Patient apparently has a history of heavy alcohol abuse and was drinking on Wednesday. He does follow with a teamsite developer out of [facility] she has apparently been cardioverted once. Objective - Vital Signs Vital signs: Vital Signs Temp 96.9 F L 12/21/17 11:44 Pulse 64 12/21/17 11:44 Resp 18 12/21/17 11:44 BP 104/61 12/21/17 11:44 Pulse Ox 90 L 12/21/17 11:44 Intake & Output 12/20/17 12/21/17 12/21/17 18:59 06:59 18:59 Intake Total 417 200 240 Output Total 600 Balance 417 200 -360 Weight 56.3 kg Intake: Oral 417 200 240 Output: Urine 600 Other: Voiding Method Toilet Toilet # Voids 2 1 - Exam PHYSICAL EXAMINATION: HEENT: Head is atraumatic, normocephalic. Pupils equal, round. Neck is supple. There is no elevated jugular venous pressure. HEART EXAMINATION: Heart sounds regular, S1 and S2 with a systolic murmur at the apex. CHEST EXAMINATION: Lungs are clear to auscultation and precussion. No chest wall tenderness is noted on palpation or with deep breathing. ABDOMEN: Soft, nontender. Bowel sounds are heard. No organomegaly noted. EXTREMITIES: 2+ peripheral pulses with no evidence of peripheral edema and no calf tenderness noted. NEUROLOGIC patient is awake, alert and oriented x3. . 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 From our perspective, patient is stable for discharge home. She will follow-up as an outpatient with her primary teamsite developer at [facility]. The above dictated assessment and findings were discussed with signing physician. The impression and plan of care have been directed as dictated. Marcie Kurtz, Nurse Practitioner, acting as scribe for signing physician.
== END 2017-12-21 14:00 | disposition home or self-care (01) ==
LOC: EC 21:24 → 6SEL 22:41 → INTOOBSV 22:41 → UNDODISIN 12-21 14:00
PROVIDERS: ADMIT Hospitalist; ATTEND Hospitalist
DX: I48.0 Paroxysmal atrial fibrillation (principal); I50.22 Chronic systolic (congestive) heart failure; F41.9 Anxiety disorder, unspecified; I47.1 Supraventricular tachycardia; F10.10 Alcohol abuse, uncomplicated; Z79.1 Long term (current) use of non-steroidal anti-inflammatories (NSAID); R77.8 Other specified abnormalities of plasma proteins; I48.2 Chronic atrial fibrillation; M19.90 Unspecified osteoarthritis, unspecified site; Z16.12 Extended spectrum beta lactamase (ESBL) resistance; Z79.01 Long term (current) use of anticoagulants; Z79.899 Other long term (current) drug therapy; Z87.74 Personal history of (corrected) congenital malformations of heart and circulatory system; Z87.891 Personal history of nicotine dependence; Z86.19 Personal history of other infectious and parasitic diseases
CPT/HCPCS: 99285 ×2; 96365 ×2; 96375 ×4; 96376 ×3; 96361 ×3; 36415; 93005; 93306; 80061; 80053; 80048; 82550 ×2; 82553 ×2; 80162; 83735 ×2; 84100; 84484 ×2; 85025; 85027; 85610 ×2; 85730; 71045; G0378 ×3; J2060; J2405; J3475 ×2; 96374

== ENCOUNTER 2018-01-17 10:58 | Emergency (ER) | payer OTHER ==
[2018-01-17] MEDS ORDERED: SODIUM CHLORIDE 0.9% 1,000 ML IV ONE (11:16)
[2018-01-17] MEDS ORDERED: LORazepam 2 MG/ML INJ IV STA (11:16)
[2018-01-17] MEDS ORDERED: ONDANSETRON 4 MG/2 ML VIAL IVP STA (11:17)
--- NOTE | 2018-01-17 11:22 | ED ---
General Adult HPI - General Chief complaint: Alcohol Stated complaint: Not Feeling Right Time Seen by Provider: 01/17/18 11:07 Source: patient Mode of arrival: wheelchair Limitations: no limitations - History of Present Illness Initial comments: This is a 32-year-old female to history of alcohol abuse and anxiety who presents emergency department mostly for anxiety. The patient states that she ran out of her Ativan 4 days ago. She gets a prescription to Dr. Woo. She takes 1 mg as needed for anxiety. She states that she's been drinking every day for the last 8 days. She states that she drinks a 24 ounce of twisted tea and then gets multiple small shooter liquor bottles that she drinks throughout the day. She states that her last drink was around 2 AM. She states that she feels extremely anxious and is concerned about her heart. She was recently hospitalized for a true fibrillation with RVR secondary to her alcohol use. She has been compliant with her Coumadin and other medications however has not taken any of them today. She presents emergency department because of the severe anxiety. She denies any chest pain shortness of breath. No lightheadedness. No bowel pain, nausea, vomiting, or diarrhea. She denies any other acute complaints. - Related Data Home Medications Medication Instructions Recorded Confirmed Furosemide [Lasix] 40 mg PO DAILY 02/25/17 01/17/18 Digoxin [Digitek] 125 mcg PO DAILY 12/19/17 01/17/18 Metoprolol Succinate (ER) [Toprol 50 mg PO DAILY 12/19/17 01/17/18 XL] Spironolactone [Aldactone] 25 mg PO DAILY 12/19/17 01/17/18 Warfarin [Coumadin] 2.5 mg PO HS 12/19/17 01/17/18 Previous Rx's Medication Instructions Recorded Potassium Chloride ER [K-Dur 20] 20 meq PO DAILY tab 03/03/17 LORazepam [Ativan] 0.5 mg PO BID #15 12/21/17 LORazepam [Ativan] 1 mg PO BID PRN #10 tab 01/17/18 Ondansetron Odt [Zofran Odt] 4 mg PO Q8HR PRN #10 tab 01/17/18 Allergies Allergy/AdvReac Type Severity Reaction Status Date / Time No Known Allergies Allergy Verified 01/17/18 11:19 Review of Systems ROS Statement: Those systems with pertinent positive or pertinent negative responses have been documented in the HPI. ROS Other: All systems not noted in ROS Statement are negative. Past Medical History Past Medical History: Atrial Fibrillation, Heart Failure Additional Past Medical History / Comment(s): pt had transposition of great arteries as an History of Any Multi-Drug Resistant Organisms: ESBL Date of last positivie culture/infection: 02/25/17 ESBL-Klebsiella MDRO Source:: Urine Additional Past Surgical History / Comment(s): open heart surg for transposition of great arteries, CARDIOVERTED FOR A- FIB Past Psychological History: No Psychological Hx Reported, Anxiety Smoking Status: Former smoker Past Alcohol Use History: Rare Past Drug Use History: None Reported - Past Family History Mother Family Medical History: No Reported History Father Family Medical History: No Reported History General Exam - General Exam Comments Initial Comments: Constitutional: Awake alert appears very anxious and is constantly grabbing my arms and asking if she is going to Head: Normocephalic atraumatic Eyes: no conjunctival injection there appears to be some mild scleral icterus EOMI Neck: No JVD Supple Heart: Irregular rhythm however no tachycardia noted normal S1-S2 no murmurs Lungs: Clear to auscultation bilaterally No wheezing No rales Abdomen: Soft nondistended nontender Extremities: Non edematous DP pulses intact Radial pulses intact Neuro: A&Ox3 No focal neurologic deficits Psych: She appears very anxious, no depression, no suicidal ideation, no homicidal ideation Limitations: no limitations Course Vital Signs 01/17/18 01/17/18 11:00 12:45 Temperature 97.4 F L Pulse Rate 95 88 Respiratory 18 17 Rate Blood Pressure 122/82 122/66 O2 Sat by Pulse 99 95 Oximetry EKG Findings - EKG Comments: EKG Findings:: EKG showing sinus rhythm with a rate of 90. There is a right branch block is unchanged from previous. She has a first-degree AV block. QTC is 535 and prolonged. QRS is 166 to the right bundle-branch block. There are no abnormal ST sgement changes or T-wave inversions. No ectopy. Medical Decision Making - Medical Decision Making This is a 32-year-old female who presents emergency department for anxiety and alcohol abuse. The patient was given Ativan upon review arrival with great improvement in her symptoms. She had no nausea or vomiting throughout her ED stay. She was noted to have a low magnesium which was supplemented. EKG did show a right bundle-branch block with a QTC that was prolonged however not different from previous EKGs. The rest her blood work was unremarkable. I did inquire about urinary symptoms however the patient took declined and said that she does not have any dysuria or hematuria. She does state that she is on her period and I suspect that the UA findings are a contaminant. Patient was given the option of going on a Librium taper at home if she wanted to quit drinking however she stated that she would prefer to go back on her Ativan. I'm going to give her 10 of her normal dose Ativan. A MAPS was performed that showed that the last prescription she got was from Dr. Owens with beginning of the month. Patient is states that she is going to try to check in to [facility] for alcohol rehab. I told her that she could always return if she has worsening or changing symptoms. All questions were answered. - Lab Data Result diagrams: 01/17/18 11:32 01/17/18 11:32 Lab Results 01/17/18 01/17/18 01/17/18 Range/Units 11:32 11:32 11:32 WBC 7.2 (3.8-10.6) k/uL RBC 4.51 (3.80-5.40) m/uL Hgb 14.5 (11.4-16.0) gm/dL Hct 42.7 (34.0-46.0) % MCV 94.7 (80.0-100.0) fL MCH 32.1 (25.0-35.0) pg MCHC 33.9 (31.0-37.0) g/dL RDW 15.8 H (11.5-15.5) % Plt Count 256 (150-450) k/uL Neutrophils % 56 % Lymphocytes % 30 % Monocytes % 10 % Eosinophils % 1 % Basophils % 1 % Neutrophils # 4.0 (1.3-7.7) k/uL Lymphocytes # 2.2 (1.0-4.8) k/uL Monocytes # 0.7 (0-1.0) k/uL Eosinophils # 0.0 (0-0.7) k/uL Basophils # 0.1 (0-0.2) k/uL PT 37.0 H (9.0-12.0) sec INR 4.1 H (<1.2) APTT 32.3 H (22.0-30.0) sec Sodium 137 (137-145) mmol/L Potassium 3.9 (3.5-5.1) mmol/L Chloride 91 L (98-107) mmol/L Carbon Dioxide 26 (22-30) mmol/L Anion Gap 20 mmol/L BUN 6 L (7-17) mg/dL Creatinine 0.57 (0.52-1.04) mg/dL Est GFR (CKD-EPI)AfAm >90 (>60 ml/min/1.73 sqM) Est GFR (CKD-EPI)NonAf >90 (>60 ml/min/1.73 sqM) Glucose 106 H (74-99) mg/dL Calcium 9.4 (8.4-10.2) mg/dL Magnesium 1.3 L (1.6-2.3) mg/dL Total Bilirubin 2.7 H (0.2-1.3) mg/dL AST 97 H (14-36) U/L ALT 54 H (9-52) U/L Alkaline Phosphatase 210 H (38-126) U/L Total Protein 7.5 (6.3-8.2) g/dL Albumin 4.9 (3.5-5.0) g/dL Urine Color Urine Appearance (Clear) Urine pH (5.0-8.0) Ur Specific [place] (1.001-1.035) Urine Protein (Negative) Urine Glucose (UA) (Negative) Urine Ketones (Negative) Urine Blood (Negative) Urine Nitrite (Negative) Urine Bilirubin (Negative) Urine Urobilinogen (<2.0) mg/dL Ur Leukocyte Esterase (Negative) Urine RBC (0-5) /hpf Urine WBC (0-5) /hpf Ur Squamous Epith Cells (0-4) /hpf Urine Bacteria (None) /hpf Urine HCG, Qual (Not Detectd) Urine Opiates Screen (NotDetected) Ur Oxycodone Screen (NotDetected) Urine Methadone Screen (NotDetected) Ur Propoxyphene Screen (NotDetected) Ur Barbiturates Screen (NotDetected) U Tricyclic Antidepress (NotDetected) Ur Phencyclidine Scrn (NotDetected) Ur Amphetamines Screen (NotDetected) U Methamphetamines Scrn (NotDetected) U Benzodiazepines Scrn (NotDetected) Urine Cocaine Screen (NotDetected) U Marijuana (THC) Screen (NotDetected) Serum Alcohol 221 mg/dL 01/17/18 01/17/18 Range/Units 11:50 11:50 WBC (3.8-10.6) k/uL RBC (3.80-5.40) m/uL Hgb (11.4-16.0) gm/dL Hct (34.0-46.0) % MCV (80.0-100.0) fL MCH (25.0-35.0) pg MCHC (31.0-37.0) g/dL RDW (11.5-15.5) % Plt Count (150-450) k/uL Neutrophils % % Lymphocytes % % Monocytes % % Eosinophils % % Basophils % % Neutrophils # (1.3-7.7) k/uL Lymphocytes # (1.0-4.8) k/uL Monocytes # (0-1.0) k/uL Eosinophils # (0-0.7) k/uL Basophils # (0-0.2) k/uL PT (9.0-12.0) sec INR (<1.2) APTT (22.0-30.0) sec Sodium (137-145) mmol/L Potassium (3.5-5.1) mmol/L Chloride (98-107) mmol/L Carbon Dioxide (22-30) mmol/L Anion Gap mmol/L BUN (7-17) mg/dL Creatinine (0.52-1.04) mg/dL Est GFR (CKD-EPI)AfAm (>60 ml/min/1.73 sqM) Est GFR (CKD-EPI)NonAf (>60 ml/min/1.73 sqM) Glucose (74-99) mg/dL Calcium (8.4-10.2) mg/dL Magnesium (1.6-2.3) mg/dL Total Bilirubin (0.2-1.3) mg/dL AST (14-36) U/L ALT (9-52) U/L Alkaline Phosphatase (38-126) U/L Total Protein (6.3-8.2) g/dL Albumin (3.5-5.0) g/dL Urine Color Yellow Urine Appearance Cloudy H (Clear) Urine pH 7.0 (5.0-8.0) Ur Specific [place] 1.006 (1.001-1.035) Urine Protein Negative (Negative) Urine Glucose (UA) Negative (Negative) Urine Ketones Negative (Negative) Urine Blood Large H (Negative) Urine Nitrite Positive H (Negative) Urine Bilirubin Negative (Negative) Urine Urobilinogen 8.0 (<2.0) mg/dL Ur Leukocyte Esterase Moderate H (Negative) Urine RBC 1 (0-5) /hpf Urine WBC 15 H (0-5) /hpf Ur Squamous Epith Cells 6 H (0-4) /hpf Urine Bacteria Few H (None) /hpf Urine HCG, Qual Not Detected (Not Detectd) Urine Opiates Screen Not Detected (NotDetected) Ur Oxycodone Screen Not Detected (NotDetected) Urine Methadone Screen Not Detected (NotDetected) Ur Propoxyphene Screen Not Detected (NotDetected) Ur Barbiturates Screen Not Detected (NotDetected) U Tricyclic Antidepress Not Detected (NotDetected) Ur Phencyclidine Scrn Not Detected (NotDetected) Ur Amphetamines Screen Not Detected (NotDetected) U Methamphetamines Scrn Not Detected (NotDetected) U Benzodiazepines Scrn Detected H (NotDetected) Urine Cocaine Screen Not Detected (NotDetected) U Marijuana (THC) Screen Not Detected (NotDetected) Serum Alcohol mg/dL Disposition Clinical Impression: Anxiety, Alcohol abuse Disposition: HOME SELF-CARE Condition: Stable Instructions: Alcohol Withdrawal (ED), Anxiety (ED) Additional Instructions: Please call Dr. Owens for an appointment TAMMIE. Call [facility] for alcohol rehab. Prescriptions: LORazepam [Ativan] 1 mg PO BID PRN #10 tab PRN Reason: Anxiety Ondansetron Odt [Zofran Odt] 4 mg PO Q8HR PRN #10 tab PRN Reason: Nausea Is patient prescribed a controlled substance at d/c from ED?: Yes If prescribed controlled substance>3 days was MAPS reviewed?: Yes When asked, does pt state using other controlled substances?: No Referrals: Candie Owens MD [Primary Care Provider] - 1-2 days
[2018-01-17 11:57] LABS: INR 4.1 (<1.2); Partial Thromboplastin Time 32.3 sec (22.0-30.0)
[2018-01-17 11:58] LABS: Basophils # (A) 0.1 k/uL (0-0.2); Basophils % (A) 1 %; Eosinophils % (A) 1 %; HCT 42.7 % (34.0-46.0); HGB 14.5 gm/dL (11.4-16.0); Lymphocytes # (A) 2.2 k/uL (1.0-4.8); Lymphocytes % (A) 30 %; MCH 32.1 pg (25.0-35.0); MCHC 33.9 g/dL (31.0-37.0); MCV 94.7 fL (80.0-100.0); Mean Platelet Volume 7.7; Monocytes # (A) 0.7 k/uL (0-1.0); Monocytes % (A) 10 %; Neutrophils % (A) 56 %; Platelet Count 256 k/uL (150-450); RBC 4.51 m/uL (3.80-5.40); RDW 15.8 % (11.5-15.5); WBC 7.2 k/uL (3.8-10.6)
[2018-01-17 12:02] LABS: ALT 54 U/L (9-52); AST 97 U/L (14-36); Albumin 4.9 g/dL (3.5-5.0); Alkaline Phosphatase 210 U/L (38-126); Anion Gap 20 mmol/L; Blood Urea Nitrogen 6 mg/dL (7-17); Calcium 9.4 mg/dL (8.4-10.2); Carbon Dioxide 26 mmol/L (22-30); Chloride 91 mmol/L (98-107); Glucose 106 mg/dL (74-99); Magnesium 1.3 mg/dL (1.6-2.3); Potassium 3.9 mmol/L (3.5-5.1); Sodium 137 mmol/L (137-145); Total Bilirubin 2.7 mg/dL (0.2-1.3); Total Protein 7.5 g/dL (6.3-8.2)
[2018-01-17 12:08] LABS: Alcohol 221 mg/dL
[2018-01-17] MEDS: MAGNESIUM SULFATE-D5W PMX 1 GM in DEXTROSE/WATER 1 100ML.BAG IVPB SCH ×2 (12:45→13:26)
[2018-01-17 12:48] VITALS: RESP 17
[2018-01-17 13:06] LABS: Appearance,Urine Cloudy (Clear); Bacteria,Urine Few /hpf; Bilirubin,Urine Negative (Negative); Blood,Urine Large (Negative); Color,Urine Yellow; Glucose,Urine (UA) Negative (Negative); Ketones,Urine Negative (Negative); Leukocyte Esterase,Urine Moderate (Negative); Nitrite,Urine Positive (Negative); Protein,Urine Negative (Negative); RBC,Urine 1 /hpf (0-5); Specific Gravity,Urine 1.006 (1.001-1.035); Squamous Epithelial Cell,Urine 6 /hpf (0-4); WBC,Urine 15 /hpf (0-5)
[2018-01-17 13:20] LABS: Amphetamine Screen,Urine Not Detected (NotDetected); Barbiturate Screen,Urine Not Detected (NotDetected); Benzodiazepines Screen,Urine Detected (NotDetected); Cocaine Screen,Urine Not Detected (NotDetected); Methadone Screen, Urine Not Detected (NotDetected); Opiate Screen,Urine Not Detected (NotDetected); Oxycodone Screen, Urine Not Detected (NotDetected); Phencyclidine Screen,Urine Not Detected (NotDetected); Tricyclic Antidepressant,Urine Not Detected (NotDetected); Urn Cannabinoid Scrn Not Detected (NotDetected)
[2018-01-17] MEDS ORDERED: chlordiazePOXIDE 25 MG CAP PO STA (13:31)
[2018-01-17 14:56] VITALS: BP 118/72; PULSE 80; TEMP 97.3
== END 2018-01-17 14:54 | disposition home or self-care (01) ==
LOC: EC 10:58
DX: F10.10 Alcohol abuse, uncomplicated (principal); Y90.7 Blood alcohol level of 200-239 mg/100 ml; F41.9 Anxiety disorder, unspecified; I45.10 Unspecified right bundle-branch block; I48.91 Unspecified atrial fibrillation; I50.9 Heart failure, unspecified; Z79.01 Long term (current) use of anticoagulants; Z79.899 Other long term (current) drug therapy; Z87.891 Personal history of nicotine dependence
CPT/HCPCS: 99284; 96365; 96366; 96375 ×2; 96361; 36415; 93005; 80053; 83735; 85025; 85610; 85730; 81001; 81025; 80306; 80320; J2060; J2405; J3475

== ENCOUNTER 2018-03-19 15:54 | Emergency (ER) | payer OTHER ==
--- NOTE | 2018-03-19 16:40 | ED ---
General Adult HPI - General Source: patient, RN notes reviewed, old records reviewed Mode of arrival: ambulatory Limitations: no limitations <Julio Doan - Last Filed: 03/19/18 23:23> <Dennis Virgen - Last Filed: 03/20/18 02:17> - General Chief complaint: Psychiatric Symptoms Stated complaint: suicidal Time Seen by Provider: 03/19/18 16:12 - History of Present Illness Initial comments: 32-year-old female presents for depression and suicidal ideation. Patient admits to drinking alcohol, denies any other ingestion. She admits to taking her prescribed medications but no additional medication. Patient has had no suicidal attempt. She is clinically intoxicated at the time my evaluation. She reports that she is going through a breakup and has been feeling like no loss her and that she should . Patient has past medical history of heart failure and is followed at [facility]. She has no complaints of chest pain or dyspnea. She has been taking her medications as prescribed. She has never had psychiatric admission or evaluation in the past. (Julio Doan) - Related Data Home Medications Medication Instructions Recorded Confirmed Furosemide [Lasix] 40 mg PO BID 02/25/17 03/19/18 Digoxin [Digitek] 125 mcg PO DAILY 12/19/17 03/19/18 Spironolactone [Aldactone] 25 mg PO DAILY 12/19/17 03/19/18 Warfarin [Coumadin] 2.5 mg PO HS 12/19/17 03/19/18 Metoprolol Succinate (ER) [Toprol 100 mg PO DAILY 03/19/18 03/19/18 Xl] Previous Rx's Medication Instructions Recorded Potassium Chloride ER [K-Dur 20] 20 meq PO DAILY tab 03/03/17 LORazepam [Ativan] 1 mg PO BID PRN #10 tab 01/17/18 Allergies Allergy/AdvReac Type Severity Reaction Status Date / Time No Known Allergies Allergy Verified 03/19/18 16:34 Review of Systems ROS Other: All systems not noted in ROS Statement are negative. <Julio Doan - Last Filed: 03/19/18 23:23> ROS Other: All systems not noted in ROS Statement are negative. <Dennis Virgen - Last Filed: 03/20/18 02:17> ROS Statement: Those systems with pertinent positive or pertinent negative responses have been documented in the HPI. Past Medical History Past Medical History: Atrial Fibrillation, Heart Failure Additional Past Medical History / Comment(s): pt had transposition of great arteries as an History of Any Multi-Drug Resistant Organisms: ESBL Date of last positivie culture/infection: 02/25/17 ESBL-Klebsiella MDRO Source:: Urine Additional Past Surgical History / Comment(s): open heart surg for transposition of great arteries, CARDIOVERTED FOR A- FIB Past Psychological History: No Psychological Hx Reported, Anxiety Smoking Status: Former smoker Past Alcohol Use History: Rare Past Drug Use History: None Reported - Past Family History Mother Family Medical History: No Reported History Father Family Medical History: No Reported History <Julio Doan - Last Filed: 03/19/18 23:23> General Exam Limitations: no limitations General appearance: alert, appears intoxicated Head exam: Present: atraumatic, normocephalic Eye exam: Present: normal appearance, PERRL, EOMI ENT exam: Present: normal exam Neck exam: Present: normal inspection. Absent: tenderness, meningismus Respiratory exam: Present: normal lung sounds bilaterally. Absent: respiratory distress, rales Cardiovascular Exam: Present: regular rate, normal rhythm GI/Abdominal exam: Present: soft. Absent: distended, tenderness Extremities exam: Present: normal inspection, normal capillary refill. Absent: pedal edema Neurological exam: Present: alert, oriented X3, CN II-XII intact. Absent: motor sensory deficit Psychiatric exam: Present: depressed, anxious, suicidal ideation Skin exam: Present: warm, dry, intact. Absent: cyanosis, diaphoretic <Julio Doan - Last Filed: 03/19/18 23:23> Course <Julio Doan - Last Filed: 03/19/18 23:23> <Dennis Virgen - Last Filed: 03/20/18 02:17> Vital Signs 03/19/18 03/19/18 16:06 23:44 Temperature 98.5 F 97.1 F L Pulse Rate 92 72 Respiratory 18 16 Rate Blood Pressure 107/72 118/60 O2 Sat by Pulse 94 L 98 Oximetry - Reevaluation(s) Reevaluation #1: 03/20/18 0100 Patient's care is signed out at shift change to Dr. Virgen awaiting EPS evaluation. (Julio Doan) - Lab Data Lab Results 03/19/18 Range/Units 18:00 Urine Opiates Screen Not Detected (NotDetected) Ur Oxycodone Screen Not Detected (NotDetected) Urine Methadone Screen Not Detected (NotDetected) Ur Propoxyphene Screen Not Detected (NotDetected) Ur Barbiturates Screen Not Detected (NotDetected) U Tricyclic Antidepress Not Detected (NotDetected) Ur Phencyclidine Scrn Not Detected (NotDetected) Ur Amphetamines Screen Not Detected (NotDetected) U Methamphetamines Scrn Not Detected (NotDetected) U Benzodiazepines Scrn Detected H (NotDetected) Urine Cocaine Screen Not Detected (NotDetected) U Marijuana (THC) Screen Not Detected (NotDetected) Disposition <Julio Doan - Last Filed: 03/19/18 23:23> Is patient prescribed a controlled substance at d/c from ED?: No <Dennis Virgen - Last Filed: 03/20/18 02:17> Clinical Impression: Acute anxiety, Alcohol intoxication Disposition: HOME SELF-CARE Condition: Fair Instructions: Alcohol Intoxication (ED), Anxiety (ED) Referrals: Candie wOens MD [Primary Care Provider] - 1-2 days
[2018-03-19 18:48] LABS: Amphetamine Screen,Urine Not Detected (NotDetected); Barbiturate Screen,Urine Not Detected (NotDetected); Benzodiazepines Screen,Urine Detected (NotDetected); Cocaine Screen,Urine Not Detected (NotDetected); Methadone Screen, Urine Not Detected (NotDetected); Opiate Screen,Urine Not Detected (NotDetected); Oxycodone Screen, Urine Not Detected (NotDetected); Phencyclidine Screen,Urine Not Detected (NotDetected); Tricyclic Antidepressant,Urine Not Detected (NotDetected); Urn Cannabinoid Scrn Not Detected (NotDetected)
[2018-03-19] MEDS ORDERED: LORazepam 1 MG TAB PO STA (20:00)
[2018-03-19] MEDS ORDERED: LORazepam 1 MG TAB PO PRN (21:52)
[2018-03-19] MEDS ORDERED: WARFARIN 2.5 MG TAB PO STA (22:20)
[2018-03-19 23:44] VITALS: RESP 16; TEMP 97.1
[2018-03-20] MEDS ORDERED: ONDANSETRON ODT 4 MG TAB PO STA (01:12)
[2018-03-20 02:31] VITALS: BP 128/74; PULSE 65
[2018-03-20] MEDS ORDERED: POTASSIUM CHLORIDE ER 20 MEQ TAB.ER PO SCH (09:00)
[2018-03-20] MEDS ORDERED: FUROSEMIDE 40 MG TAB PO SCH (09:00)
[2018-03-20] MEDS ORDERED: SPIRONOLACTONE 25 MG TAB PO SCH (09:00)
[2018-03-20] MEDS ORDERED: METOPROLOL SUCCINATE (ER) 100 MG TAB.ER.24H PO SCH (09:00)
[2018-03-20] MEDS ORDERED: DIGOXIN 125 MCG TAB PO SCH (09:00)
[2018-03-20] MEDS ORDERED: WARFARIN 2.5 MG TAB PO SCH (21:00)
== END 2018-03-20 02:31 | disposition home or self-care (01) ==
LOC: EC 15:54
DX: F10.120 Alcohol abuse with intoxication, uncomplicated (principal); F41.9 Anxiety disorder, unspecified; F32.9 Major depressive disorder, single episode, unspecified; R45.851 Suicidal ideations; I48.91 Unspecified atrial fibrillation; I50.9 Heart failure, unspecified; Z87.891 Personal history of nicotine dependence; Z79.01 Long term (current) use of anticoagulants; Z79.899 Other long term (current) drug therapy
CPT/HCPCS: 80306; 82075; 99285

== ENCOUNTER 2018-04-05 02:31 | Inpatient (IN) | payer OTHER ==
[2018-04-05] MEDS ORDERED: SODIUM CHLORIDE 0.9% 500 ML IV STA ×2 (02:49→03:17)
[2018-04-05] MEDS ORDERED: SODIUM CHLORIDE 0.9% 1,000 ML IV STA (02:49)
--- NOTE | 2018-04-05 03:06 | ED ---
General Adult HPI - General Chief complaint: Overdose Stated complaint: Drug Overdose Time Seen by Provider: 04/05/18 02:40 Source: patient, RN notes reviewed, old records reviewed Mode of arrival: EMS Limitations: no limitations - History of Present Illness Initial comments: This is a 32-year-old female the ER for evaluation. Patient does say for evaluation regarding altered mental state, drug overdose, spondylosis possible suicide attempt. Patient is difficult historian secondary to overdose medications currently. Patient has history of psychiatric illness and depression. Denies any other alcohol or drugs tonight - Related Data Home Medications Medication Instructions Recorded Confirmed Furosemide [Lasix] 40 mg PO BID 02/25/17 03/19/18 Digoxin [Digitek] 125 mcg PO DAILY 12/19/17 03/19/18 Spironolactone [Aldactone] 25 mg PO DAILY 12/19/17 03/19/18 Warfarin [Coumadin] 2.5 mg PO HS 12/19/17 03/19/18 Metoprolol Succinate (ER) [Toprol 100 mg PO DAILY 03/19/18 03/19/18 Xl] Previous Rx's Medication Instructions Recorded Potassium Chloride ER [K-Dur 20] 20 meq PO DAILY tab 03/03/17 LORazepam [Ativan] 1 mg PO BID PRN #10 tab 01/17/18 Allergies Allergy/AdvReac Type Severity Reaction Status Date / Time No Known Allergies Allergy Verified 04/05/18 02:39 Review of Systems ROS Statement: Those systems with pertinent positive or pertinent negative responses have been documented in the HPI. ROS Other: All systems not noted in ROS Statement are negative. 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 History of Any Multi-Drug Resistant Organisms: ESBL Date of last positivie culture/infection: 02/25/17 ESBL-Klebsiella MDRO Source:: Urine Past Surgical History: No Surgical Hx Reported Additional Past Surgical History / Comment(s): open heart surg for transposition of great arteries, CARDIOVERTED FOR A- FIB Past Psychological History: No Psychological Hx Reported, Anxiety Smoking Status: Former smoker Past Alcohol Use History: Daily Past Drug Use History: None Reported - Past Family History Mother Family Medical History: No Reported History Father Family Medical History: No Reported History General Exam Limitations: no limitations General appearance: alert, in no apparent distress Head exam: Present: atraumatic, normocephalic, normal inspection Eye exam: Present: normal appearance, PERRL, EOMI. Absent: scleral icterus, conjunctival injection, periorbital swelling ENT exam: Present: normal exam, mucous membranes moist Neck exam: Present: normal inspection. Absent: tenderness, meningismus, lymphadenopathy Respiratory exam: Present: normal lung sounds bilaterally. Absent: respiratory distress, wheezes, rales, rhonchi, stridor Cardiovascular Exam: Present: regular rate, normal rhythm, normal heart sounds. Absent: systolic murmur, diastolic murmur, rubs, gallop, clicks GI/Abdominal exam: Present: soft, normal bowel sounds. Absent: distended, tenderness, guarding, rebound, rigid Extremities exam: Present: normal inspection, full ROM, normal capillary refill. Absent: tenderness, pedal edema, joint swelling, calf tenderness Back exam: Present: normal inspection Neurological exam: Present: alert, oriented X3, CN II-XII intact Psychiatric exam: Present: normal affect, normal mood Skin exam: Present: warm, dry, intact, normal color. Absent: rash Course Vital Signs 04/05/18 04/05/18 04/05/18 02:39 02:42 03:42 Temperature 98.4 F Pulse Rate 94 115 H 113 H Respiratory 18 20 20 Rate Blood Pressure 136/99 130/76 115/82 O2 Sat by Pulse 100 97 99 Oximetry - Reevaluation(s) Reevaluation #1: 04/05/18 04:21 Patient responding well to Ativan and IV hydration, supportive care EKG Findings - EKG Comments: EKG Findings:: EKG shows sinus tachycardia rate 112, W[place] 28, QRS 140, QTC 510 Medical Decision Making - Medical Decision Making 32 female the ER with overdose secondary to depression and suicidal thoughts. Patient has not been feeling well secondary to her alcohol use. Patient will be admitted for continuing monitoring of electrode cardiopulmonary support, hemodynamic support, patient was see psychiatric consult - Lab Data Result diagrams: 04/05/18 02:50 04/05/18 02:50 Lab Results 04/05/18 04/05/18 04/05/18 Range/Units 02:50 02:50 02:50 WBC 7.3 (3.8-10.6) k/uL RBC 4.39 (3.80-5.40) m/uL Hgb 14.9 (11.4-16.0) gm/dL Hct 42.5 (34.0-46.0) % MCV 96.8 (80.0-100.0) fL MCH 33.9 (25.0-35.0) pg MCHC 35.0 (31.0-37.0) g/dL RDW 15.2 (11.5-15.5) % Plt Count 249 (150-450) k/uL Neutrophils % 63 % Lymphocytes % 22 % Monocytes % 10 % Eosinophils % 1 % Basophils % 1 % Neutrophils # 4.6 (1.3-7.7) k/uL Lymphocytes # 1.6 (1.0-4.8) k/uL Monocytes # 0.7 (0-1.0) k/uL Eosinophils # 0.0 (0-0.7) k/uL Basophils # 0.1 (0-0.2) k/uL PT (9.0-12.0) sec INR (<1.2) Sodium 137 (137-145) mmol/L Potassium 3.1 L (3.5-5.1) mmol/L Chloride 91 L (98-107) mmol/L Carbon Dioxide 22 (22-30) mmol/L Anion Gap 24 mmol/L BUN 5 L (7-17) mg/dL Creatinine 0.50 L (0.52-1.04) mg/dL Est GFR (CKD-EPI)AfAm >90 (>60 ml/min/1.73 sqM) Est GFR (CKD-EPI)NonAf >90 (>60 ml/min/1.73 sqM) Glucose 98 (74-99) mg/dL Plasma Lactic Acid Andrew (0.7-2.0) mmol/L Calcium 9.2 (8.4-10.2) mg/dL Phosphorus 2.3 L (2.5-4.5) mg/dL Magnesium 0.9 L* (1.6-2.3) mg/dL Total Bilirubin 2.3 H (0.2-1.3) mg/dL AST 76 H (14-36) U/L ALT 59 H (9-52) U/L Alkaline Phosphatase 158 H (38-126) U/L Total Creatine Kinase 55 (30-135) U/L CK-MB (CK-2) 2.3 (0.0-2.4) ng/mL CK-MB (CK-2) Rel Index 4.2 Troponin I 0.066 H* (0.000-0.034) ng/mL Total Protein 7.2 (6.3-8.2) g/dL Albumin 4.6 (3.5-5.0) g/dL Lipase 75 (23-300) U/L Salicylates <1.0 mg/dL Acetaminophen <10.0 ug/mL Serum Alcohol 87 mg/dL 04/05/18 04/05/18 Range/Units 02:50 02:50 WBC (3.8-10.6) k/uL RBC (3.80-5.40) m/uL Hgb (11.4-16.0) gm/dL Hct (34.0-46.0) % MCV (80.0-100.0) fL MCH (25.0-35.0) pg MCHC (31.0-37.0) g/dL RDW (11.5-15.5) % Plt Count (150-450) k/uL Neutrophils % % Lymphocytes % % Monocytes % % Eosinophils % % Basophils % % Neutrophils # (1.3-7.7) k/uL Lymphocytes # (1.0-4.8) k/uL Monocytes # (0-1.0) k/uL Eosinophils # (0-0.7) k/uL Basophils # (0-0.2) k/uL PT 18.5 H (9.0-12.0) sec INR 2.0 H (<1.2) Sodium (137-145) mmol/L Potassium (3.5-5.1) mmol/L Chloride (98-107) mmol/L Carbon Dioxide (22-30) mmol/L Anion Gap mmol/L BUN (7-17) mg/dL Creatinine (0.52-1.04) mg/dL Est GFR (CKD-EPI)AfAm (>60 ml/min/1.73 sqM) Est GFR (CKD-EPI)NonAf (>60 ml/min/1.73 sqM) Glucose (74-99) mg/dL Plasma Lactic Acid Andrew 8.0 H* (0.7-2.0) mmol/L Calcium (8.4-10.2) mg/dL Phosphorus (2.5-4.5) mg/dL Magnesium (1.6-2.3) mg/dL Total Bilirubin (0.2-1.3) mg/dL AST (14-36) U/L ALT (9-52) U/L Alkaline Phosphatase (38-126) U/L Total Creatine Kinase (30-135) U/L CK-MB (CK-2) (0.0-2.4) ng/mL CK-MB (CK-2) Rel Index Troponin I (0.000-0.034) ng/mL Total Protein (6.3-8.2) g/dL Albumin (3.5-5.0) g/dL Lipase (23-300) U/L Salicylates mg/dL Acetaminophen ug/mL Serum Alcohol mg/dL Critical Care Time Critical Care Time: Yes Total Critical Care Time: 31 Disposition Clinical Impression: Atrial fibrillation, Alcoholic ketoacidosis, Drug overdose, Depression Disposition: ADMITTED IP TO THIS HOSP Condition: Fair Is patient prescribed a controlled substance at d/c from ED?: No Referrals: Candie Owens MD [Primary Care Provider] - 1-2 days
[2018-04-05 03:11] LABS: Basophils # (A) 0.1 k/uL (0-0.2); Basophils % (A) 1 %; Eosinophils % (A) 1 %; HCT 42.5 % (34.0-46.0); HGB 14.9 gm/dL (11.4-16.0); Lymphocytes # (A) 1.6 k/uL (1.0-4.8); Lymphocytes % (A) 22 %; MCH 33.9 pg (25.0-35.0); MCV 96.8 fL (80.0-100.0); Mean Platelet Volume 7.2; Monocytes # (A) 0.7 k/uL (0-1.0); Monocytes % (A) 10 %; Neutrophils # (A) 4.6 k/uL (1.3-7.7); Neutrophils % (A) 63 %; Platelet Count 249 k/uL (150-450); RBC 4.39 m/uL (3.80-5.40); RDW 15.2 % (11.5-15.5); WBC 7.3 k/uL (3.8-10.6)
[2018-04-05] MEDS ORDERED: LORazepam 2 MG/ML INJ IV STA ×2 (03:14→03:17)
[2018-04-05 03:16] LABS: Prothrombin Time 18.5 sec (9.0-12.0)
[2018-04-05 03:22] LABS: ALT 59 U/L (9-52); AST 76 U/L (14-36); Acetaminophen <10.0 ug/mL; Albumin 4.6 g/dL (3.5-5.0); Alkaline Phosphatase 158 U/L (38-126); Anion Gap 24 mmol/L; Blood Urea Nitrogen 5 mg/dL (7-17); Calcium 9.2 mg/dL (8.4-10.2); Carbon Dioxide 22 mmol/L (22-30); Chloride 91 mmol/L (98-107); Glucose 98 mg/dL (74-99); Lipase 75 U/L (23-300); Phosphorus 2.3 mg/dL (2.5-4.5); Potassium 3.1 mmol/L (3.5-5.1); Salicylate <1.0 mg/dL; Sodium 137 mmol/L (137-145); Total Bilirubin 2.3 mg/dL (0.2-1.3); Total Protein 7.2 g/dL (6.3-8.2)
[2018-04-05 03:28] LABS: Alcohol 87 mg/dL
[2018-04-05 03:31] LABS: Magnesium 0.9 mg/dL (1.6-2.3)
[2018-04-05] MEDS ORDERED: LORazepam 2 MG/ML INJ IV PRN ×2 (03:39)
[2018-04-05] MEDS ORDERED: THIAMINE 100 MG/ML 2 ML VIAL IM STA (03:39)
[2018-04-05 03:43] LABS: Creatine Kinase MB 2.3 ng/mL (0.0-2.4); Troponin I 0.066 ng/mL (0.000-0.034)
[2018-04-05] MEDS ORDERED: NITROGLYCERIN SL TABS 0.4 MG TAB SUBLINGUAL PRN (04:19)
[2018-04-05] MEDS: MAGNESIUM SULFATE-D5W PMX 1 GM in DEXTROSE/WATER 1 100ML.BAG IVPB SCH ×4 (04:30→08:54)
[2018-04-05] MEDS: POTASSIUM CHLORIDE 20 MEQ in WATER FOR INJECTION 1 100ML.BAG IVPB SCH ×2 (04:32→06:53)
[2018-04-05] MEDS: SODIUM CHLORIDE 0.9% 1,000 ML IV SCH ×3 (05:49→20:08)
[2018-04-05] MEDS: LORazepam 2 MG/ML INJ IV PRN ×2 (06:50→21:47)
[2018-04-05] MEDS ORDERED: METOPROLOL TARTRATE 25 MG TAB PO STA (07:05)
--- NOTE | 2018-04-05 07:37 | XR ---
EXAMINATION TYPE: XR chest 2V DATE OF EXAM: 04/05/2018 COMPARISON: Chest x-ray December 20, 2017. HISTORY: Cough and shortness of breath. TECHNIQUE: Frontal and lateral views of the chest are obtained. FINDINGS: There is persistent cardiomegaly. Poststernotomy changes are redemonstrated. Central vascu lar congestion remains present. No new peripheral focal airspace opacity, pleural effusion, or pneumo thorax is seen. The osseous structures are intact. IMPRESSION: Correlate for CHF exacerbation as there is persistent cardiomegaly with suspected central vascular congestion. No significant change from prior.
[2018-04-05] MEDS ORDERED: FUROSEMIDE 10 MG/ML 4 ML VIAL IV STA (08:37)
[2018-04-05] MEDS ORDERED: POTASSIUM BICARBONATE/CIT AC 20 MEQ TABLET.EFF PO ONE (08:38)
[2018-04-05 08:53] LABS: Creatine Kinase MB 1.9 ng/mL (0.0-2.4)
[2018-04-05] MEDS: METOPROLOL TARTRATE 50 MG TAB PO SCH ×2 (09:00→19:37)
[2018-04-05 09:05] LABS: Troponin I 0.069 ng/mL (0.000-0.034)
[2018-04-05 09:51] LABS: Appearance,Urine Clear (Clear); Bacteria,Urine Many /hpf; Bilirubin,Urine Negative (Negative); Blood,Urine Negative (Negative); Color,Urine Yellow; Glucose,Urine (UA) Negative (Negative); Ketones,Urine Negative (Negative); Leukocyte Esterase,Urine Large (Negative); Mucus,Urine Rare /hpf; Nitrite,Urine Negative (Negative); PH, Urine 6.5 (5.0-8.0); Protein,Urine Negative (Negative); RBC,Urine 2 /hpf (0-5); Specific Gravity,Urine 1.008 (1.001-1.035); Squamous Epithelial Cell,Urine 6 /hpf (0-4); WBC,Urine 10 /hpf (0-5)
[2018-04-05 09:58] LABS: Amphetamine Screen,Urine Not Detected (NotDetected); Benzodiazepines Screen,Urine Detected (NotDetected); Cocaine Screen,Urine Not Detected (NotDetected); Methadone Screen, Urine Not Detected (NotDetected); Opiate Screen,Urine Not Detected (NotDetected); Phencyclidine Screen,Urine Not Detected (NotDetected); Tricyclic Antidepressant,Urine Not Detected (NotDetected); Urn Cannabinoid Scrn Not Detected (NotDetected)
[2018-04-05 09:59] LABS: Barbiturate Screen,Urine Not Detected (NotDetected); Oxycodone Screen, Urine Not Detected (NotDetected)
[2018-04-05] MEDS: MULTIVITAMINS, THERA 1 EACH TAB PO SCH (16:05)
[2018-04-05 16:10] LABS: Creatine Kinase MB 1.9 ng/mL (0.0-2.4)
[2018-04-05 16:12] LABS: Troponin I 0.057 ng/mL (0.000-0.034)
[2018-04-05] MEDS: THIAMINE 100 MG TAB PO SCH (16:13)
[2018-04-05 22:20] LABS: Cholesterol 211 mg/dL (<200); HDL Cholesterol 62 mg/dL (40-60); LDL Cholesterol,Calculated 109 mg/dL (0-99); Triglycerides 199 mg/dL (<150)
--- NOTE | 2018-04-05 23:01 | P.HPIM ---
History of Present Illness H&P Date: 04/05/18 Chief Complaint: Social ideation Patient is a 32-year-old female with known history of depression and paroxysmal atrial fibrillation on anticoagulation came to ER for mental status evaluation. Patient does say for evaluation regarding altered mental state, drug overdose, spondylosis possible suicide attempt. Patient is difficult historian secondary to overdose medications. Otherwise denied any chest pain or shortness of breath. No nausea vomiting or abdominal pain. No diarrhea. No recent illnesses. Patient has history of psychiatric illness and depression. Denies any other alcohol or drugs. Chest x-ray showed correlate for CHF exacerbation. no change from prior. EKG showed sinus tachycardia . Potassium 3.1 Lactic acid 8.0. On admission Alcohol level 87 Elevated liver enzymes UDS positive for benzodiazepine Troponin 0.066, 0.069 and 0.057 INR 2.0 Review of Systems Constitutional: Patient denies any fever or chills . No generalized weakness or weight loss. Abdomen: Patient denied nausea vomiting and diarrhea and abdominal pain. Cardiovascular: Patient denies any chest pain or short of breath no palpitations. Respiratory: patient denied any cough is from production. No shortness of breath Neurologic: Patient denied any numbness or tingling headache. Musculoskeletal: Patient denies any complaints of joint swelling or deformity. 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 History of Any Multi-Drug Resistant Organisms: ESBL Date of last positivie culture/infection: 02/25/17 ESBL-Klebsiella MDRO Source:: Urine Past Surgical History: No Surgical Hx Reported Additional Past Surgical History / Comment(s): open heart surg for transposition of great arteries, CARDIOVERTED FOR A- FIB twice Past Anesthesia/Blood Transfusion Reactions: No Reported Reaction Smoking Status: Former smoker - Past Family History Mother Family Medical History: No Reported History Additional Family Medical History / Comment(s): Mother is healthy Father Family Medical History: No Reported History Additional Family Medical History / Comment(s): Father is healthy Medications and Allergies Home Medications Medication Instructions Recorded Confirmed Type Furosemide [Lasix] 40 mg PO BID 02/25/17 04/05/18 History Potassium Chloride ER [K-Dur 20] 20 meq PO DAILY tab 03/03/17 04/05/18 Rx Digoxin [Digitek] 125 mcg PO DAILY 12/19/17 04/05/18 History Spironolactone [Aldactone] 25 mg PO DAILY 12/19/17 04/05/18 History Warfarin [Coumadin] 2.5 mg PO HS 12/19/17 04/05/18 History LORazepam [Ativan] 1 mg PO BID PRN #10 tab 01/17/18 04/05/18 Rx Metoprolol Succinate (ER) [Toprol 100 mg PO DAILY 03/19/18 04/05/18 History Xl] Allergies Allergy/AdvReac Type Severity Reaction Status Date / Time No Known Allergies Allergy Verified 04/05/18 07:51 Physical Exam Vitals: Vital Signs Temp Pulse Resp BP Pulse Ox 04/05/18 12:38 88 18 105/60 99 04/05/18 10:00 97 18 115/69 98 04/05/18 09:40 92 18 126/82 98 04/05/18 08:58 105 H 18 138/71 99 04/05/18 06:43 104 H 20 120/71 97 04/05/18 06:00 99 20 119/63 97 04/05/18 05:00 101 H 18 108/53 98 04/05/18 04:00 100 18 112/69 98 04/05/18 03:42 113 H 20 115/82 99 04/05/18 02:42 115 H 20 130/76 97 04/05/18 02:39 98.4 F 94 18 136/99 100 Intake and Output 04/04/18 04/05/18 04/05/18 22:59 06:59 14:59 Other: Weight 56.245 kg PHYSICAL EXAMINATION: Patient is lying in the bed comfortably, no acute distress, awake alert and oriented. Continues and drowsy.. HEENT: Normocephalic. Neck is supple. Pupils reactive. Nostrils clear. Oral cavity is moist. Ears reveal no drainage. Neck reveals no JVD, carotid bruits, or thyromegaly. CHEST EXAMINATION: Trachea is central. Symmetrical expansion. Bibasilar diminished air entry. Minimal basilar crackles. Lung murray clear to auscultation and percussion. CARDIAC: Normal S1, S2 with no gallops. No murmurs ABDOMEN: Soft. Bowel sounds normal. No organomegaly. No abdominal bruits. Extremities: reveal no edema. No clubbing or cyanosis Neurologically awake, alert, oriented x3 with well-coordinated movements. No focal deficits noted Skin: No rash or skin lesions. Psychiatric: Coperative. Could not be assessed completely. Musculoskeletal: No joint swelling or deformity. Normal range of motion. Results CBC & Chem 7: 04/05/18 02:50 04/05/18 02:50 Labs: Abnormal Lab Results - Last 24 Hours (Table) 04/05/18 04/05/18 04/05/18 Range/Units 02:50 02:50 02:50 PT 18.5 H (9.0-12.0) sec INR 2.0 H (<1.2) Potassium 3.1 L (3.5-5.1) mmol/L Chloride 91 L (98-107) mmol/L BUN 5 L (7-17) mg/dL Creatinine 0.50 L (0.52-1.04) mg/dL Plasma Lactic Acid Andrew (0.7-2.0) mmol/L Phosphorus 2.3 L (2.5-4.5) mg/dL Magnesium 0.9 L* (1.6-2.3) mg/dL Total Bilirubin 2.3 H (0.2-1.3) mg/dL AST 76 H (14-36) U/L ALT 59 H (9-52) U/L Alkaline Phosphatase 158 H (38-126) U/L Troponin I 0.066 H* (0.000-0.034) ng/mL Ur Leukocyte Esterase (Negative) Urine WBC (0-5) /hpf Ur Squamous Epith Cells (0-4) /hpf Urine Bacteria (None) /hpf Urine Mucus (None) /hpf U Benzodiazepines Scrn (NotDetected) 04/05/18 04/05/18 04/05/18 Range/Units 02:50 07:55 07:55 PT (9.0-12.0) sec INR (<1.2) Potassium (3.5-5.1) mmol/L Chloride (98-107) mmol/L BUN (7-17) mg/dL Creatinine (0.52-1.04) mg/dL Plasma Lactic Acid Andrew 8.0 H* 2.8 H* (0.7-2.0) mmol/L Phosphorus (2.5-4.5) mg/dL Magnesium (1.6-2.3) mg/dL Total Bilirubin (0.2-1.3) mg/dL AST (14-36) U/L ALT (9-52) U/L Alkaline Phosphatase (38-126) U/L Troponin I 0.069 H* (0.000-0.034) ng/mL Ur Leukocyte Esterase (Negative) Urine WBC (0-5) /hpf Ur Squamous Epith Cells (0-4) /hpf Urine Bacteria (None) /hpf Urine Mucus (None) /hpf U Benzodiazepines Scrn (NotDetected) 04/05/18 Range/Units 09:34 PT (9.0-12.0) sec INR (<1.2) Potassium (3.5-5.1) mmol/L Chloride (98-107) mmol/L BUN (7-17) mg/dL Creatinine (0.52-1.04) mg/dL Plasma Lactic Acid Andrew (0.7-2.0) mmol/L Phosphorus (2.5-4.5) mg/dL Magnesium (1.6-2.3) mg/dL Total Bilirubin (0.2-1.3) mg/dL AST (14-36) U/L ALT (9-52) U/L Alkaline Phosphatase (38-126) U/L Troponin I (0.000-0.034) ng/mL Ur Leukocyte Esterase Large H (Negative) Urine WBC 10 H (0-5) /hpf Ur Squamous Epith Cells 6 H (0-4) /hpf Urine Bacteria Many H (None) /hpf Urine Mucus Rare H (None) /hpf U Benzodiazepines Scrn Detected H (NotDetected) Thrombosis Risk Factor Assmnt - DVT/VTE Prophylaxis DVT/VTE Prophylaxis: Pharmacologic Prophylaxis ordered - Choose All That Apply Any of the Below Risk Factors Present?: No Other Risk Factors: No Other congenital or acquired thrombophilia - If yes, enter type in comment: No Thrombosis Risk Factor Assessment Level: Very Low Risk Assessment and Plan Assessment: Acute suicidal ideation with history of depression Acute alcohol intoxication Elevated liver enzymes due to alcoholic Hepatitis Severe lactic acidosis due to tissue hypoperfusion Atrial fibrillation on anticoagulation with Coumadin Hypokalemia 3.1 Chronic CHF. Ejection fraction unknown Coumadin monitoring Plan: Patient will be continued on gentle hydration and follow-up lactic acid level. Monitor for alcohol withdrawal symptoms. Continue with home medications. Replace electrolyte and follow closely. Continue with bedside sitter. Psychiatry consult. Further conditions based on the clinical course. Prognosis is guarded. Time with Patient: Greater than 30
[2018-04-06] MEDS: LORazepam 2 MG/ML INJ IV PRN ×2 (05:46→22:24)
[2018-04-06 06:41] LABS: Basophils # (A) 0.1 k/uL (0-0.2); Basophils % (A) 1 %; Eosinophils # (A) 0.1 k/uL (0-0.7); Eosinophils % (A) 3 %; HGB 12.2 gm/dL (11.4-16.0); Lymphocytes % (A) 22 %; MCH 32.5 pg (25.0-35.0); MCHC 33.8 g/dL (31.0-37.0); MCV 96.2 fL (80.0-100.0); Mean Platelet Volume 8.6; Monocytes # (A) 0.4 k/uL (0-1.0); Monocytes % (A) 9 %; Neutrophils # (A) 2.9 k/uL (1.3-7.7); Neutrophils % (A) 63 %; Platelet Count 171 k/uL (150-450); RBC 3.75 m/uL (3.80-5.40); RDW 14.1 % (11.5-15.5); WBC 4.7 k/uL (3.8-10.6)
[2018-04-06 06:54] LABS: Anion Gap 8 mmol/L; Blood Urea Nitrogen 7 mg/dL (7-17); Calcium 8.5 mg/dL (8.4-10.2); Carbon Dioxide 28 mmol/L (22-30); Chloride 98 mmol/L (98-107); Glucose 82 mg/dL (74-99); Magnesium 1.8 mg/dL (1.6-2.3); Potassium 3.2 mmol/L (3.5-5.1); Sodium 134 mmol/L (137-145)
[2018-04-06] MEDS: METOPROLOL TARTRATE 50 MG TAB PO SCH ×2 (07:29→20:22)
[2018-04-06] MEDS: DIGOXIN 125 MCG TAB PO SCH (07:29)
[2018-04-06] MEDS: MULTIVITAMINS, THERA 1 EACH TAB PO SCH (07:30)
[2018-04-06] MEDS: SPIRONOLACTONE 25 MG TAB PO SCH (07:30)
[2018-04-06] MEDS: POTASSIUM CHLORIDE ER 20 MEQ TAB.ER PO SCH (07:30)
[2018-04-06] MEDS: THIAMINE 100 MG TAB PO SCH ×2 (07:31→16:45)
[2018-04-06] MEDS ORDERED: Potassium Replacement Protocol 1 EACH MISC MISCELLANE PRN (09:56)
[2018-04-06] MEDS ORDERED: Magnesium Replacement Protocol 1 EACH MISC MISCELLANE PRN (09:56)
[2018-04-06 12:35] LABS: INR 1.7 (<1.2); Prothrombin Time 15.3 sec (9.0-12.0)
--- NOTE | 2018-04-06 15:16 | P.CN ---
Psychiatric Consult - . Consult date: 04/06/18 Consult:: 04/06/18 15:01 Identification: Patient is a 32-year-old female who was brought to the emergency room after she called 911 after taking an overdose of over-the- counter sleeping pills and 16 shots of alcohol. Reason for Consult: Overdose History of Present Illness: Patient's chart was reviewed and the patient was seen and interviewed in her room no family members were present. Patient states that she drank 16 shots of alcohol a night prior to admission because she was upset about a breakup with her partner of 3 years. He was already seeing someone and she became upset thinking that he had begun that relationship prior to ending theirs. She states that she took the 16 shots of alcohol and then added [id number] sleeping pills, she is unsure how many and became frightened got up and made herself throw up. She then was not feeling well and called 911 because she regretted that she had taken the medication. She states that she was thinking about him and didn't not want to and regretted the decision that she made. Patient states that over the last year she's had increasing symptoms of depression due to developing atrial fibrillation and needing to quit working her full-time job. Patient states that she's got no financial support at this time and is in danger of losing her house because of this. She states that she's been living at her home and alternating living with her mother and stepfather and states that she has become more socially isolative, not going out and not exercising or engaging in the activities that she was prior. She states that she was becoming more depressed due to her financial stress, lack of interaction with friends and then the recent breakup with her boyfriend she states was the last straw. Patient states that she was restarted on Ativan 1 mg twice a day by her primary care physician 1 year ago when she began to have difficulties with the atrial fibrillation and was complaining of episodes of anxiety where she began to feel sweaty and clammy. She states that she took either 1 mg or 0.5 mg twice a day on a fairly regular basis for the last year. Patient states that she had been on this in the remote past from 199907/29/2012 for similar symptoms but discontinued it after about a year. Patient states that she is due to follow up at the [facility] for continued assessment of her atrial fibrillation, she states that she has had 2 ablations so far. 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 She states that she has never attempted suicide before and has never had suicidal thoughts before. She states that she has never been seen for outpatient counseling nor has any prior psychiatric admissions. Patient reports that she was sleeping fairly well at home, was eating well and caring for her activities of daily living, she states that she had been feeling increasingly depressed due to her financial stresses as well as the lack of contact with her peers and friends as well as the recent breakup with her boyfriend of 3 years and finding out that he was already involved in another relationship. Patient did not endorse any symptoms of matthew, psychosis or OCD symptoms currently or in the past. Patient states that she currently regrets what she did does not want to and has no further suicidal thoughts. She states that she is interested in counseling. Past Psychiatric History: patient has no history of inpatient psychiatric care, has never been seen by psychiatry and was given Ativan 1 mg twice a day when necessary by her primary care physician 1 year ago. 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 She states that she is also had several fractures to her right arm when she was a young child. Patient is also status to ablation procedures Family History: patient denies any family history of psychiatric disorders, alcohol or drug use disorders and no completed suicides. Social History: patient was born and raised in [place] and her parents were never and she was raised by her mother remarried her stepfather when the patient was in fifth grade. She has 3 half-sisters from her father's prior relationship with whom she has no contact. She states that she has rare contact with her father. She states she has a good relationship with both her mother and stepfather. Patient quit high school in the middle of the 12th grade and never obtained a GED. 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 She was living in her own home at the time. She currently lives between her own home and her mother's home. She states that her mother is helping her out financially as she owns her own home and is in danger of losing it and has no source of financial support. Patient has applied for Social Security disability but was turned down on her initial application. Patient denies any history of abuse. Patient states that over the last year she isn't stopped working, has been isolated from her friends socially and has not been exercising. Substance Use History: patient states that she uses alcohol socially and has never drank on a regular basis. She states that she's never used marijuana or any other drugs. She states that she is not smoking or using tobacco products. Legal History: patient states that she had a DUI in 2009. Mental status: Appearance/Attitude: Patient is a hospital gown sitting in a hospital bed in no acute distress, she made good eye contact and was cooperative. Behavior: Patient did not exhibit any psychomotor agitation or retardation. Speech/Language: Patient's speech was spontaneous and normal volume and rhythm and she was coherent Thought Process: Patient was goal-directed there is no evidence of loose association or flight of ideas Thought Content: Patient denied any auditory or visual hallucinations no delusions or paranoid ideation were elicited. Patient stated that she had been feeling depressed recently due to the breakup with her boyfriend and also had been under increasing financial stress over the last year due to loss of her job secondary to health problems. Patient states that she had also been more socially isolative and it stopped exercising. She reports that she was eating fairly well at home and her sleep was restful. Patient states that she had been caring for her activities of daily living. Suicidal/Homicidal Ideation: Patient denies any current suicidal or homicidal ideation and stated that as soon as she took the [id number] sleeping pills and began to not feel well she immediately regretted her decision and made herself throw up. Patient states that she had been using alcohol prior to taking the [id number] sleeping pills and states that she wasn't thinking clearly when she did it. Sensorium/Cognition: Patient is alert and oriented to person, place, time and her recent and remote memory are grossly intact Mood/Affect: patient's mood is pleasant and her affect is appropriate Insight/Judgment: patient's insight and judgment are intact. Assessment: patient presents after she drank 16 shots of alcohol and then took [id number] sleeping pills, she states that as soon as she took the pills and began to not feel well she regretted her decision. Patient made herself throw up and then called 911. Patient states that over the last year she's stopped working due to developing atrial fibrillation and being in and out of the hospital. She states this is caused her significant financial stress and she in fear of losing her house, states that she broke up with her boyfriend several days ago after a 3 year relationship and discovered that he was already dating someone. She states that she's been more isolative and has not been exercising or doing her usual activities. She states that she began to feel increasingly anxious and depressed and was given Ativan by her primary care physician which she has been taking on a regular basis. Patient states that the last straw was her boyfriend breaking up with her and she states that she regrets her decision. Diagnosis: adjustment reaction with mixed anxiety and depression Plan: patient has no evidence of a manic process, psychotic process and does not require inpatient psychiatric care. Patient states that she is no longer suicidal and states that she regrets her decision yesterday to use alcohol and take pills. Patient and I discussed the stresses over the last year of her loss of her work due to her health problems, her lack of financial support as well as the breakup of a three-year relationship. Patient has been isolated from her friends and has not been exercising. Patient states that she has referrals to counseling that is covered by her health insurance and she was encouraged to follow up with this and states that she is interested in doing so. Patient was advised to avoid any alcohol or drugs and to discuss with her primary care physician decreasing the Ativan and eventually discontinuing it and considering other non-benzodiazepine medications for anxiety and/or depression should she require them after being seen in counseling. Patient was agreeable with this plan and states that she will probably return to live with her mother for a few days before she moves back into her own home. Patient no longer requires a sitter and no longer requires suicide precautions, patient does not require an inpatient psychiatric admission. There are any further questions or concerns please don't hesitate to contact me
[2018-04-06] MEDS ORDERED: WARFARIN 2.5 MG TAB PO SCH (18:00)
[2018-04-06] MEDS: SODIUM CHLORIDE 0.9% 1,000 ML IV SCH ×2 (20:15→20:23)
[2018-04-07] MEDS: LORazepam 2 MG/ML INJ IV PRN (06:13)
[2018-04-07 06:38] LABS: INR 1.6 (<1.2); Prothrombin Time 14.7 sec (9.0-12.0)
[2018-04-07] MEDS ORDERED: Magnesium Replacement Protocol 1 EACH MISC MISCELLANE PRN (08:42)
[2018-04-07] MEDS: DIGOXIN 125 MCG TAB PO SCH (08:50)
[2018-04-07] MEDS: METOPROLOL TARTRATE 50 MG TAB PO SCH (08:50)
[2018-04-07] MEDS: POTASSIUM CHLORIDE ER 20 MEQ TAB.ER PO SCH (08:51)
[2018-04-07] MEDS: SPIRONOLACTONE 25 MG TAB PO SCH (08:51)
[2018-04-07] MEDS: MAGNESIUM SULFATE-D5W PMX 1 GM in DEXTROSE/WATER 1 100ML.BAG IVPB SCH ×2 (09:57→11:32)
[2018-04-07] MEDS: SODIUM CHLORIDE 0.9% 1,000 ML IV SCH (09:58)
[2018-04-07 10:32] VITALS: PULSE 70; RESP 16
[2018-04-07] MEDS: THIAMINE 100 MG TAB PO SCH (11:33)
[2018-04-07] MEDS: MULTIVITAMINS, THERA 1 EACH TAB PO SCH (11:33)
[2018-04-07 13:07] VITALS: BP 135/56; TEMP 97.1
== END 2018-04-07 13:02 | disposition home or self-care (01) | DRG 918 ==
LOC: EC 02:31 → 6SEL 04:19
PROVIDERS: ADMIT Hospitalist; ATTEND Hospitalist
DX: T45.0X2A Poisoning by antiallergic and antiemetic drugs, intentional self-harm, initial encounter (principal); E87.2 Acidosis; T51.0X2A Toxic effect of ethanol, intentional self-harm, initial encounter; E87.6 Hypokalemia; F10.129 Alcohol abuse with intoxication, unspecified; Y90.4 Blood alcohol level of 80-99 mg/100 ml; I48.0 Paroxysmal atrial fibrillation; Z79.01 Long term (current) use of anticoagulants; I50.9 Heart failure, unspecified; K70.10 Alcoholic hepatitis without ascites; M47.9 Spondylosis, unspecified; Z87.891 Personal history of nicotine dependence; F43.23 Adjustment disorder with mixed anxiety and depressed mood; Z79.899 Other long term (current) drug therapy; Z59.8 Other problems related to housing and economic circumstances
CPT/HCPCS: 36415; 71046; 80048; 80053; 80061; 80306; 80320; 81001; 81025; 82550; 82553; 83520; 83605; 83690; 83735; 84100; 84484; 85025; 85610; 93005; 94760; 96361; 96365; 96366; 96368; 96372; 96375; 96376; 99285

== ENCOUNTER 2019-01-05 09:41 | Inpatient (IN) | payer OTHER ==
[2019-01-05] MEDS ORDERED: ONDANSETRON 4 MG/2 ML VIAL IVP STA ×2 (09:51→11:36)
[2019-01-05] MEDS ORDERED: KETOROLAC 30 MG/ML 1 ML VIAL IVP STA (09:51)
[2019-01-05] MEDS ORDERED: SODIUM CHLORIDE 0.9% 1,000 ML IV STA (09:51)
[2019-01-05] MEDS ORDERED: LORazepam 2 MG/ML INJ IV STA ×2 (09:52→15:48)
[2019-01-05 10:32] LABS: Basophils # (A) 0.1 k/uL (0-0.2); Basophils % (A) 1 %; Eosinophils % (A) 1 %; HCT 47.9 % (34.0-46.0); HGB 16.3 gm/dL (11.4-16.0); Lymphocytes # (A) 2.1 k/uL (1.0-4.8); Lymphocytes % (A) 25 %; MCH 32.5 pg (25.0-35.0); MCHC 34.1 g/dL (31.0-37.0); MCV 95.4 fL (80.0-100.0); Mean Platelet Volume 7.1; Monocytes # (A) 0.7 k/uL (0-1.0); Monocytes % (A) 9 %; Neutrophils # (A) 5.2 k/uL (1.3-7.7); Neutrophils % (A) 63 %; Platelet Count 365 k/uL (150-450); RBC 5.02 m/uL (3.80-5.40); RDW 13.5 % (11.5-15.5); WBC 8.4 k/uL (3.8-10.6)
--- NOTE | 2019-01-05 10:37 | ED ---
Nausea/Vomiting/Diarrhea HPI - General Chief complaint: Nausea/Vomiting/Diarrhea Stated complaint: Vomiting Time Seen by Provider: 01/05/19 09:45 Source: patient, RN notes reviewed Mode of arrival: ambulatory Limitations: no limitations - History of Present Illness Initial comments: 33-year-old female presents emergency Department with chief complaint of nausea vomiting. Patient states she's been sick since beginning of this week. Patient states she's not taking her medications and last 2 days secondary nausea vomiting. Patient states this stems from falling in which she slipped at work on a wet floor and states that she injured her buttocks region. Patient complains of pain in her tailbone. Patient states she started taking some old pain meds and states that it made her sick. Patient states she is unable to stop this time. She has committed palpitations but denies any chest pain or shortness of breath. She states she feels dehydrated complaining of cramping. Patient is on digoxin, metoprolol, Lasix, spironolactone. Patient Has a History of Transposition of Great Vessels, A. fib, CHF. Patient Denies Any Swelling. - Related Data Home Medications Medication Instructions Recorded Confirmed Furosemide [Lasix] 40 mg PO BID 02/25/17 01/05/19 Digoxin [Digitek] 125 mcg PO DAILY 12/19/17 01/05/19 Spironolactone [Aldactone] 25 mg PO DAILY 12/19/17 01/05/19 Metoprolol Succinate (ER) [Toprol 100 mg PO DAILY 03/19/18 01/05/19 XL] LORazepam [Ativan] 0.5 mg PO HS 01/05/19 01/05/19 Potassium Chloride ER [K-Dur 20] 40 meq PO DAILY 01/05/19 01/05/19 Allergies Allergy/AdvReac Type Severity Reaction Status Date / Time No Known Allergies Allergy Verified 01/05/19 10:11 Review of Systems ROS Statement: Those systems with pertinent positive or pertinent negative responses have been documented in the HPI. ROS Other: All systems not noted in ROS Statement are negative. 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 History of Any Multi-Drug Resistant Organisms: ESBL Date of last positivie culture/infection: 02/25/17 ESBL-Klebsiella MDRO Source:: Urine Past Surgical History: No Surgical Hx Reported Additional Past Surgical History / Comment(s): open heart surg for transposition of great arteries, CARDIOVERTED FOR A- FIB twice Past Anesthesia/Blood Transfusion Reactions: No Reported Reaction Past Psychological History: No Psychological Hx Reported, Anxiety Smoking Status: Former smoker Past Alcohol Use History: None Reported Past Drug Use History: None Reported - Past Family History Mother Family Medical History: No Reported History Additional Family Medical History / Comment(s): Mother is healthy Father Family Medical History: No Reported History Additional Family Medical History / Comment(s): Father is healthy General Exam Limitations: no limitations General appearance: alert, in no apparent distress Head exam: Present: atraumatic, normocephalic, normal inspection Eye exam: Present: normal appearance, PERRL, EOMI. Absent: scleral icterus, conjunctival injection, periorbital swelling Neck exam: Present: normal inspection. Absent: tenderness, meningismus, lymphadenopathy Respiratory exam: Present: normal lung sounds bilaterally. Absent: respiratory distress, wheezes, rales, rhonchi, stridor Cardiovascular Exam: Present: regular rate, normal rhythm, normal heart sounds. Absent: systolic murmur, diastolic murmur, rubs, gallop, clicks GI/Abdominal exam: Present: soft, tenderness (Diffuse), normal bowel sounds. Absent: distended, guarding, rebound, rigid Back exam: Present: full ROM, tenderness (Lower sacral region), paraspinal tenderness, vertebral tenderness Neurological exam: Present: alert, oriented X3, CN II-XII intact, reflexes no rmal. Absent: motor sensory deficit Psychiatric exam: Present: anxious Skin exam: Present: warm, dry, intact, normal color. Absent: rash Course Vital Signs 01/05/19 01/05/19 09:42 11:54 Temperature 97.4 F L Pulse Rate 62 100 Respiratory 22 18 Rate Blood Pressure 133/88 122/70 O2 Sat by Pulse 99 100 Oximetry Medical Decision Making - Medical Decision Making 33-year-old female presented from for nausea vomiting. Patient's found to have multiple abdominal imbalances including hypokalemia, hypomagnesemia, elevated liver function tests. Patient had ultrasound which is unremarkable. This is been elevated in the past. Patient is found to be dehydrated. She'll be admitted for nitrite replacement, IV hydration and further evaluation. - Lab Data Result diagrams: 01/05/19 10:05 01/05/19 10:05 Lab Results 01/05/19 01/05/19 01/05/19 Range/Units 10:05 10:05 10:05 WBC 8.4 (3.8-10.6) k/uL RBC 5.02 (3.80-5.40) m/uL Hgb 16.3 H (11.4-16.0) gm/dL Hct 47.9 H (34.0-46.0) % MCV 95.4 (80.0-100.0) fL MCH 32.5 (25.0-35.0) pg MCHC 34.1 (31.0-37.0) g/dL RDW 13.5 (11.5-15.5) % Plt Count 365 (150-450) k/uL Neutrophils % 63 % Lymphocytes % 25 % Monocytes % 9 % Eosinophils % 1 % Basophils % 1 % Neutrophils # 5.2 (1.3-7.7) k/uL Lymphocytes # 2.1 (1.0-4.8) k/uL Monocytes # 0.7 (0-1.0) k/uL Eosinophils # 0.0 (0-0.7) k/uL Basophils # 0.1 (0-0.2) k/uL Sodium 137 (137-145) mmol/L Potassium 2.6 L* (3.5-5.1) mmol/L Chloride 84 L (98-107) mmol/L Carbon Dioxide 33 H (22-30) mmol/L Anion Gap 20 mmol/L BUN 4 L (7-17) mg/dL Creatinine 0.71 (0.52-1.04) mg/dL Est GFR (CKD-EPI)AfAm >90 (>60 ml/min/1.73 sqM) Est GFR (CKD-EPI)NonAf >90 (>60 ml/min/1.73 sqM) Glucose 136 H (74-99) mg/dL Calcium 9.9 (8.4-10.2) mg/dL Magnesium (1.6-2.3) mg/dL Total Bilirubin 3.0 H (0.2-1.3) mg/dL AST 245 H (14-36) U/L ALT 109 H (9-52) U/L Alkaline Phosphatase 135 H (38-126) U/L Troponin I 0.082 H* (0.000-0.034) ng/mL Total Protein 8.0 (6.3-8.2) g/dL Albumin 4.7 (3.5-5.0) g/dL Amylase 81 (30-110) U/L Lipase 739 H (23-300) U/L 01/05/19 Range/Units 10:05 WBC (3.8-10.6) k/uL RBC (3.80-5.40) m/uL Hgb (11.4-16.0) gm/dL Hct (34.0-46.0) % MCV (80.0-100.0) fL MCH (25.0-35.0) pg MCHC (31.0-37.0) g/dL RDW (11.5-15.5) % Plt Count (150-450) k/uL Neutrophils % % Lymphocytes % % Monocytes % % Eosinophils % % Basophils % % Neutrophils # (1.3-7.7) k/uL Lymphocytes # (1.0-4.8) k/uL Monocytes # (0-1.0) k/uL Eosinophils # (0-0.7) k/uL Basophils # (0-0.2) k/uL Sodium (137-145) mmol/L Potassium (3.5-5.1) mmol/L Chloride (98-107) mmol/L Carbon Dioxide (22-30) mmol/L Anion Gap mmol/L BUN (7-17) mg/dL Creatinine (0.52-1.04) mg/dL Est GFR (CKD-EPI)AfAm (>60 ml/min/1.73 sqM) Est GFR (CKD-EPI)NonAf (>60 ml/min/1.73 sqM) Glucose (74-99) mg/dL Calcium (8.4-10.2) mg/dL Magnesium 0.8 L* (1.6-2.3) mg/dL Total Bilirubin (0.2-1.3) mg/dL AST (14-36) U/L ALT (9-52) U/L Alkaline Phosphatase (38-126) U/L Troponin I (0.000-0.034) ng/mL Total Protein (6.3-8.2) g/dL Albumin (3.5-5.0) g/dL Amylase (30-110) U/L Lipase (23-300) U/L 01/05/19 12:40 EKG performed at 10:04 sinus rhythm with right axis deviation and right ventricular hypertrophy with a rate of 95 CA 28 QRS 158 QT/QTc/512 no acute changes from prior EKG. Disposition Clinical Impression: Hypomagnesemia, Hepatitis, Dehydration, Hypokalemia Disposition: ADMITTED IP TO THIS HOSP Condition: Fair Referrals: None,Stated [Primary Care Provider] - 1-2 days
[2019-01-05 10:54] LABS: ALT 109 U/L (9-52); AST 245 U/L (14-36); Albumin 4.7 g/dL (3.5-5.0); Alkaline Phosphatase 135 U/L (38-126); Amylase 81 U/L (30-110); Anion Gap 20 mmol/L; Blood Urea Nitrogen 4 mg/dL (7-17); Calcium 9.9 mg/dL (8.4-10.2); Carbon Dioxide 33 mmol/L (22-30); Chloride 84 mmol/L (98-107); Glucose 136 mg/dL (74-99); Lipase 739 U/L (23-300); Sodium 137 mmol/L (137-145)
[2019-01-05 11:01] LABS: Potassium 2.6 mmol/L (3.5-5.1)
--- NOTE | 2019-01-05 11:55 | US ---
EXAMINATION TYPE: US abdomen limited DATE OF EXAM: 01/05/2019 COMPARISON: NONE CLINICAL HISTORY: Pain, vomiting x 4 days EXAM MEASUREMENTS: Liver Length: 16.1 cm Gallbladder Wall: 0.3 cm CBD: .03 cm Right Kidney: 12.6 x 3.2 x 4.7 cm Patient unable to hold her breath, patient dry heaving during test. Technically difficult and somewha t limited study. Pancreas: limited visualization due to overlying bowel Liver: Increased in echogenicity Gallbladder: wnl as seen, one view taken due to patient dry heaving during test Evidence for sonographic García's sign:no CBD: wnl Right Kidney: measures large IMPRESSION: 1. Involving the liver are nonspecific may be related to hepatic steatosis. Correlate clinically to e xclude hepatitis or hepatocellular disease. 2. No evidence of obvious gallstones.
[2019-01-05] MEDS ORDERED: POTASSIUM CHLORIDE 20 MEQ in WATER FOR INJECTION 1 100ML.BAG IVPB STA ×2 (12:30→12:42)
[2019-01-05] MEDS ORDERED: POTASSIUM CHLORIDE ER 20 MEQ TAB.ER PO STA (12:39)
[2019-01-05] MEDS ORDERED: LORazepam 0.5 MG TAB PO PRN (12:42)
[2019-01-05] MEDS ORDERED: KETOROLAC 30 MG/ML 1 ML VIAL IVP PRN (12:42)
[2019-01-05] MEDS ORDERED: NALOXONE 0.4 MG/ML 1 ML VIAL IV PRN (12:42)
[2019-01-05] MEDS ORDERED: ONDANSETRON 4 MG/2 ML VIAL IVP PRN (12:42)
[2019-01-05] MEDS ORDERED: Potassium Replacement Protocol 1 EACH MISC MISCELLANE PRN (12:44)
--- NOTE | 2019-01-05 12:47 | XR ---
Sacrum and coccyx HISTORY: Trauma and pain 3 views of the sacrum and coccyx No comparisons Bone mineralization is maintained. Alignment and joint spaces are maintained. Possible transitional v ertebral body noted at the lumbosacral junction. Impression: No fracture or dislocation is evident, follow-up as indicated
[2019-01-05] MEDS ORDERED: diphenhydrAMINE 50 MG/ML 1 ML VIAL IVP STA (12:54)
[2019-01-05] MEDS ORDERED: METOCLOPRAMIDE 5 MG/ML 2 ML VIAL IVP STA (12:54)
[2019-01-05] MEDS: SODIUM CHLORIDE 0.9% 1,000 ML IV SCH (13:10)
[2019-01-05] MEDS: MAGNESIUM SULFATE-D5W PMX 1 GM in DEXTROSE/WATER 1 100ML.BAG IVPB SCH ×2 (13:49→15:08)
[2019-01-05 14:47] VITALS: BMI 26.5
[2019-01-05] MEDS ORDERED: LORazepam 0.5 MG TAB PO SCH (21:00)
[2019-01-06] MEDS ORDERED: POTASSIUM CHLORIDE ER 20 MEQ TAB.ER PO SCH ×2 (05:00→09:00)
[2019-01-06] MEDS: SODIUM CHLORIDE 0.9% 1,000 ML IV SCH ×2 (06:51→17:15)
[2019-01-06 07:12] LABS: Magnesium 1.6 mg/dL (1.6-2.3); Potassium 3.4 mmol/L (3.5-5.1)
[2019-01-06] MEDS ORDERED: DIGOXIN 125 MCG TAB PO SCH (09:00)
[2019-01-06] MEDS ORDERED: METOPROLOL SUCCINATE (ER) 100 MG TAB.ER.24H PO SCH (09:00)
[2019-01-06] MEDS ORDERED: LORazepam 1 MG TAB PO PRN (10:08)
[2019-01-06 12:11] VITALS: RESP 17
[2019-01-06 12:36] LABS: Amorphous Sediment,Urine Rare /hpf; Appearance,Urine Cloudy (Clear); Bacteria,Urine Rare /hpf; Bilirubin,Urine 1+ (Negative); Blood,Urine Negative (Negative); Color,Urine Dark Brown; Glucose,Urine (UA) Negative (Negative); Hyaline Casts,Urine 44 /lpf (0-2); Ketones,Urine Negative (Negative); Leukocyte Esterase,Urine Moderate (Negative); Mucus,Urine Rare /hpf; Nitrite,Urine Negative (Negative); PH, Urine 5.5 (5.0-8.0); Protein,Urine Trace (Negative); RBC,Urine 3 /hpf (0-5); Specific Gravity,Urine 1.017 (1.001-1.035); Squamous Epithelial Cell,Urine 5 /hpf (0-4)
--- NOTE | 2019-01-06 14:52 | HP ---
HISTORY AND PHYSICAL CHIEF COMPLAINT: Dehydration. HISTORY OF PRESENT ILLNESS: This is another admission for this 33-year-old female. She gives an unusual history. Apparently she injured her back several days ago, and the pain was so bad that she just stayed in bed and did not eat or drink. She got progressively more weak and came to the emergency room, where she was found to be dehydrated, hypokalemic and hypomagnesemic. 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 REVIEW OF SYSTEMS: She has had no focal neurologic deficits, change in the vision or the hearing, chest pain, shortness of breath, heart disease, hypertension, murmurs, rheumatic fever, orthopnea, PND, abdominal pain, nausea, vomiting, hematemesis, melena, hematochezia, colitis, diverticulosis, diverticulitis, hemorrhoids, jaundice, hepatitis, cirrhosis, hematuria, frequency, urgency, arthralgias, diabetes, etc. Past medical history, family history, and personal and social histories reveal that she is on: 1. Lasix 40 mg. 2. Spironolactone 25 mg. 3. Lanoxin 0.125. 4. Lorazepam 0.5 at bedtime p.r.n. 5. Metoprolol 100 mg once a day. 6. KCl 40 mEq a day. She does not smoke. She is NOT ALLERGIC TO ANY MEDICATION. The only surgery she has had is because of her heart disease. PHYSICAL EXAMINATION: Blood pressure 142/93 with a pulse of 118, respirations of 30, and she is afebrile. In general she appears to be well developed, well nourished, in no acute distress. Skin color is normal. Skin is warm and dry. Lymph nodes are not enlarged. Thyroid is normal. Chest is clear. Cardiac exam demonstrates a faint grade 2/6 systolic murmur heard throughout the precordium. Abdomen is soft, nontender without visceromegaly or masses. Bowel sounds are present. Extremities are normal. Neurologically she is intact. IMPRESSION: 1. Dehydration. 2. Hypokalemia at 2.6. 3. Hypomagnesemia at 0.8. 4. 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 5. ? elevated blood pressure. 6. Elevated lipase at 739. PLAN: 1. Bed rest. 2. IV fluids. 3. Correct electrolyte imbalance. MMODL / IJN: [id number] /
[2019-01-06 16:17] VITALS: BP 129/76; PULSE 85; TEMP 97.9
--- NOTE | 2019-01-07 07:45 | DS ---
DISCHARGE SUMMARY CHIEF COMPLAINT: Low back pain, dehydration, hypokalemia and hypomagnesemia. HISTORY OF PRESENT ILLNESS AND PHYSICAL EXAM: Details of this lady's history and physical can be found in the initial workup. LABORATORY STUDIES: While she was in the hospital, she had laboratory studies, details of which can be found in the laboratory section of her chart. COURSE IN HOSPITAL: After admission, she was placed on bedrest, started on intravenous fluids and rehydrated. Her potassium was brought up to normal and a magnesium was rising. It was felt that she could go home. She will go home on her usual activity and diet and medication and follow up in the office in a few days. FINAL DIAGNOSES: 1. Dehydration. 2. Hypokalemia. 3. Hypomagnesemia. 4. Low back pain. OPERATIONS: None. CONSULTATIONS: None. She is improved. JOSE ANGEL / CAROLYN: [id number] /
== END 2019-01-06 17:46 | disposition home or self-care (01) | DRG 640 ==
LOC: EC 09:41 → 3SCARD 13:13
PROVIDERS: ADMIT Family Medicine; ATTEND Family Medicine
DX: E83.42 Hypomagnesemia (principal); Q20.3 Discordant ventriculoarterial connection; I50.9 Heart failure, unspecified; I48.91 Unspecified atrial fibrillation; E86.0 Dehydration; E87.6 Hypokalemia; M54.5 Low back pain; R03.0 Elevated blood-pressure reading, without diagnosis of hypertension; R74.8 Abnormal levels of other serum enzymes; R11.2 Nausea with vomiting, unspecified; R19.7 Diarrhea, unspecified; Z79.899 Other long term (current) drug therapy; Z87.891 Personal history of nicotine dependence
CPT/HCPCS: 36415; 72220; 76705; 80053; 80162; 81001; 81025; 82150; 83690; 83735; 84132; 84484; 85025; 87086; 93005; 96361; 96365; 96366; 96375; 96376; 99285

== ENCOUNTER 2019-02-23 07:42 | Observation (INO) | payer OTHER ==
--- NOTE | 2019-02-23 08:27 | ED ---
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 fib who presents with complaints of one week of dizziness shortness of breath exertional dyspnea no fevers chills or sweats she states she is very anxious and during my interview is noted be hyperventilating. Cough or phlegm production fevers chills sweats she feels as though she has some chest heaviness and tightness mild to moderate in severity. She states when she gets up from a sitting position she is very dizzy has to hold her head for a few minutes and then passes no reproducible dizziness with head movement or eye movement. No recent cold or flu's she doesn't time shows a 3 years may be plugged up however. No other modifying factors at this time MD Complaint: chest pain, other - Related Data Home Medications Medication Instructions Recorded Confirmed Furosemide [Lasix] 40 mg PO BID 02/25/17 02/23/19 Digoxin [Digitek] 125 mcg PO DAILY 12/19/17 02/23/19 Spironolactone [Aldactone] 25 mg PO DAILY 12/19/17 02/23/19 Metoprolol Succinate (ER) [Toprol 100 mg PO DAILY 03/19/18 02/23/19 XL] LORazepam [Ativan] 0.5 mg PO BID 01/05/19 02/23/19 Potassium Chloride ER [K-Dur 20] 60 meq PO DAILY 01/05/19 02/23/19 Warfarin Sodium [Coumadin] 2.5 mg PO HS 02/23/19 02/23/19 Allergies Allergy/AdvReac Type Severity Reaction Status Date / Time No Known Allergies Allergy Verified 02/23/19 07:59 Review of Systems ROS Statement: Those systems with pertinent positive or pertinent negative responses have been documented in the HPI. ROS Other: All systems not noted in ROS Statement are negative. EKG Findings - EKG Results: EKG: interpreted by ANTONIO, sinus rhythm (Sinus rhythm with sinus arrhythmia occasional PVCs rate was 72. Interval 198 QRS duration 158 QT since QTC 452/494) Past Medical History Past Medical History: Atrial Fibrillation, Heart Failure Additional Past Medical History / Comment(s): Afib with RVR, pt had transposition of great arteries as an , ETOH abuse, alcohol withdrawals, hypomagnesemia. History of Any Multi-Drug Resistant Organisms: ESBL Date of last positivie culture/infection: 02/25/17 ESBL-Klebsiella MDRO Source:: Urine Past Surgical History: No Surgical Hx Reported Additional Past Surgical History / Comment(s): open heart surg for transposition of great arteries, CARDIOVERTED FOR A- FIB twice Past Anesthesia/Blood Transfusion Reactions: No Reported Reaction Past Psychological History: No Psychological Hx Reported, Anxiety Smoking Status: Former smoker - Past Family History Mother Family Medical History: No Reported History Additional Family Medical History / Comment(s): Mother is healthy Father Family Medical History: No Reported History Additional Family Medical History / Comment(s): Father is healthy General Exam - General Exam Comments Initial Comments: This is a well-developed well-nourished awake alert oriented 5 female who is noted to be hyperventilating anxious and tearful Limitations: no limitations General appearance: alert, anxious Head exam: Present: atraumatic, normocephalic, normal inspection Eye exam: Present: normal appearance, PERRL, EOMI. Absent: scleral icterus, conjunctival injection, periorbital swelling ENT exam: Present: normal exam, mucous membranes moist Neck exam: Present: normal inspection, full ROM, other (No stridor JVD or bruits). Absent: tenderness, meningismus, lymphadenopathy Respiratory exam: Present: normal lung sounds bilaterally. Absent: respiratory distress, wheezes, rales, rhonchi, stridor, chest wall tenderness Cardiovascular Exam: Present: regular rate, normal rhythm, normal heart sounds. Absent: systolic murmur, diastolic murmur, rubs, gallop, clicks GI/Abdominal exam: Present: soft, normal bowel sounds. Absent: distended, tenderness, guarding, rebound, rigid, pulsatile mass Extremities exam: Present: normal inspection, full ROM, normal capillary refill. Absent: tenderness, pedal edema, joint swelling, calf tenderness Back exam: Present: normal inspection Neurological exam: Present: alert, oriented X3, CN II-XII intact Psychiatric exam: Present: normal affect, normal mood Skin exam: Present: warm, dry, intact, normal color. Absent: rash Course Vital Signs 02/23/19 02/23/19 02/23/19 07:43 10:47 12:24 Temperature 96.9 F L Pulse Rate 70 82 84 Respiratory 18 18 18 Rate Blood Pressure 107/73 108/70 103/64 O2 Sat by Pulse 96 99 99 Oximetry Chest Pain MDM - MDM Imaging was reviewed no acute findings patient continues be very anxious she does admit to not taking her benzodiazepine per week and a half. He does have a mild elevation of her troponin she does have an INR of 8 she will be admitted I did discuss case with Dr. Wilson. Cardiology will be consulted Disposition Clinical Impression: Unstable angina pectoris, Atypical chest pain, Anxiety, Coumadin toxicity Disposition: ADMITTED IP TO THIS [facility] Condition: Fair Referrals: Rodney Wilson MD [Primary Care Provider] - 1-2 days
[2019-02-23] MEDS ORDERED: LORazepam 2 MG/ML INJ IV STA ×2 (08:50→13:34)
[2019-02-23 10:14] LABS: ALT 76 U/L (9-52); AST 198 U/L (14-36); African American GFR (CKD) >90 (>60 ml/min/1.73 sqM); Alkaline Phosphatase 104 U/L (38-126); Anion Gap 15 mmol/L; Blood Urea Nitrogen 3 mg/dL (7-17); Calcium 9.7 mg/dL (8.4-10.2); Carbon Dioxide 31 mmol/L (22-30); Chloride 87 mmol/L (98-107); Creatine Kinase 40 U/L (30-135); Glucose 124 mg/dL (74-99); Magnesium 1.1 mg/dL (1.6-2.3); Potassium 3.6 mmol/L (3.5-5.1); Sodium 133 mmol/L (137-145); Total Bilirubin 2.4 mg/dL (0.2-1.3); Total Protein 8.2 g/dL (6.3-8.2)
--- NOTE | 2019-02-23 10:26 | XR ---
EXAMINATION TYPE: XR chest 2V DATE OF EXAM: 02/23/2019 COMPARISON: 04/05/2018 HISTORY: Chest pain and dizziness TECHNIQUE: Frontal and lateral views of the chest are obtained. FINDINGS: There is redemonstration of an enlarged cardiomediastinal silhouette is seen on the prior of 04/05/2018. Postsurgical changes are seen with median sternotomy wires. No new focal consolidation, pleural effusion or pneumothorax is seen. No acute osseous pathology is noted. IMPRESSION: Redemonstration of cardiomegaly and postsurgical changes of the chest as seen on the jesus or of 04/05/2018.
[2019-02-23 10:49] LABS: Basophils # (A) 0.1 k/uL (0-0.2); Basophils % (A) 1 %; Eosinophils # (A) 0.1 k/uL (0-0.7); Eosinophils % (A) 1 %; HCT 38.4 % (34.0-46.0); Lymphocytes # (A) 1.8 k/uL (1.0-4.8); Lymphocytes % (A) 21 %; MCH 32.5 pg (25.0-35.0); MCHC 33.9 g/dL (31.0-37.0); Mean Platelet Volume 8.4; Monocytes # (A) 0.6 k/uL (0-1.0); Monocytes % (A) 7 %; Neutrophils # (A) 5.5 k/uL (1.3-7.7); Neutrophils % (A) 68 %; Platelet Count 452 k/uL (150-450); WBC 8.2 k/uL (3.8-10.6)
[2019-02-23 10:57] LABS: D-Dimer 0.23 mg/L FEU (<0.60); Partial Thromboplastin Time 43.2 sec (22.0-30.0); Prothrombin Time 77.9 sec (9.0-12.0)
[2019-02-23] MEDS ORDERED: MAGNESIUM SULFATE-D5W PMX 1 GM in DEXTROSE/WATER 1 100ML.BAG IVPB ONE (11:03)
[2019-02-23] MEDS ORDERED: NITROGLYCERIN SL TABS 0.4 MG TAB SUBLINGUAL PRN (13:09)
[2019-02-23] MEDS: SODIUM CHLORIDE 0.9% 1,000 ML IV SCH (13:37)
[2019-02-23] MEDS: LORazepam 0.5 MG TAB PO SCH ×2 (17:24→21:25)
[2019-02-23] MEDS: FUROSEMIDE 40 MG TAB PO SCH (17:24)
[2019-02-23] MEDS: DIGOXIN 125 MCG TAB PO SCH (17:25)
[2019-02-23] MEDS: POTASSIUM CHLORIDE ER 20 MEQ TAB.ER PO SCH (17:25)
[2019-02-23] MEDS: METOPROLOL SUCCINATE (ER) 100 MG TAB.ER.24H PO SCH (17:25)
[2019-02-23] MEDS: SPIRONOLACTONE 25 MG TAB PO SCH (17:25)
[2019-02-24 04:29] LABS: Cholesterol 232 mg/dL (<200); HDL Cholesterol 38 mg/dL (40-60); LDL Cholesterol,Calculated 132 mg/dL (0-99); Triglycerides 312 mg/dL (<150)
[2019-02-24 07:28] LABS: Magnesium 1.6 mg/dL (1.6-2.3); Potassium 3.5 mmol/L (3.5-5.1)
--- NOTE | 2019-02-24 08:36 | P.CRDCN ---
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 She does intermittently admit to having some chest heaviness as well. Chest x-ray on presentation here showed redemonstration of cardiomegaly and postsurgical changes of the chest as seen prior. EKG shows a normal sinus rhythm with a right bundle branch block pattern and nonspecific ST-T wave changes. Blood pressure 108/70 with a heart rate in the 80s, 94% on room air. White blood cell count 8.2, hemoglobin 13, platelet count 452. INR is 8.0, d-dimer 0.2, sodium 133, potassium 3.6, BUN 3 and creatinine 0.7. Troponins 0.05, 0.05, 0.06. Cholesterol 232, LDL 132, triglycerides 312 and HDL 38. Dig 1.0. Magnesium 1.1, 1.6 this morning, AST 198 and ALT 76. According to the patient, she had recently followed up at [facility] in December, and also had an echo performed early January. At the time of my examination this morning, patient denies any dizziness, no chest discomfort and her breathing is stable. 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 History of Any Multi-Drug Resistant Organisms: ESBL Date of last positivie culture/infection: 02/25/17 ESBL-Klebsiella MDRO Source:: Urine Past Surgical History: No Surgical Hx Reported Additional Past Surgical History / Comment(s): open heart surg for transposition of great arteries, CARDIOVERTED FOR A- FIB twice Past Anesthesia/Blood Transfusion Reactions: No Reported Reaction Past Psychological History: No Psychological Hx Reported, Anxiety Additional Psychological History / Comment(s): Pt resides alone. She is employed. Smoking Status: Former smoker Past Alcohol Use History: None Reported Additional Past Alcohol Use History / Comment(s): Pt started smoking in 2002 and quit in 2016. Pt states she used to be a heavy drinker but now drinks occasiona lly and less than 7 drinks a week. Past Drug Use History: None Reported - Past Family History Mother Family Medical History: No Reported History Additional Family Medical History / Comment(s): Mother is healthy Father Family Medical History: No Reported History Additional Family Medical History / Comment(s): Father is healthy Medications and Allergies Home Medications Medication Instructions Recorded Confirmed Type Furosemide [Lasix] 40 mg PO BID 02/25/17 02/23/19 History Digoxin [Digitek] 125 mcg PO DAILY 12/19/17 02/23/19 History Spironolactone [Aldactone] 25 mg PO DAILY 12/19/17 02/23/19 History Metoprolol Succinate (ER) [Toprol 100 mg PO DAILY 03/19/18 02/23/19 History XL] LORazepam [Ativan] 0.5 mg PO BID 01/05/19 02/23/19 History Potassium Chloride ER [K-Dur 20] 60 meq PO DAILY 01/05/19 02/23/19 History Warfarin Sodium [Coumadin] 2.5 mg PO HS 02/23/19 02/23/19 History Allergies Allergy/AdvReac Type Severity Reaction Status Date / Time No Known Allergies Allergy Verified 02/23/19 07:59 Physical Exam Vitals: Vital Signs Temp Pulse Pulse Resp BP BP Pulse Ox 02/24/19 04:00 97.6 F 84 18 108/76 94 L 02/23/19 23:05 98.3 F 75 18 111/71 98 02/23/19 20:00 97.8 F 87 18 97/67 97 02/23/19 16:00 97.8 F 78 18 101/63 99 02/23/19 15:33 96.9 F L 84 18 96/85 99 02/23/19 15:10 84 18 96/85 99 02/23/19 13:50 18 L 18 104/53 97 02/23/19 12:24 84 18 103/64 99 02/23/19 10:47 82 18 108/70 99 Intake and Output 02/23/19 02/24/19 02/24/19 22:59 06:59 14:59 Output Total 200 Balance -200 Output: Urine 200 Other: Voiding Method Toilet Toilet # Voids 2 Weight 69.4 kg PHYSICAL EXAMINATION: GENERAL: 83-year-old female in no acute distress at the time of my examination HEENT: Head is atraumatic, normocephalic. Pupils equal, round. Sclera anicteric. Conjunctiva are clear. Mucous membranes of the mouth are moist. Neck is supple. There is no elevated jugular venous pressure. No carotid bruit is heard. HEART EXAMINATION: Heart S1 and S2 systolic murmur is heard CHEST EXAMINATION: Lungs reveal some mild diminished air entry throughout ABDOMEN: Soft, nontender. Bowel sounds are heard. No organomegaly noted. EXTREMITIES: 2+ peripheral pulses with no evidence of peripheral edema and no calf tenderness noted. NEUROLOGIC patient is awake, alert and oriented 3 . . Results 02/23/19 09:43 02/24/19 06:46 Cardiac Enzymes 02/23/19 02/23/19 02/23/19 Range/Units 09:43 09:43 15:18 AST 198 H (14-36) U/L Troponin I 0.053 H* 0.055 H* (0.000-0.034) ng/mL 02/23/19 Range/Units 21:13 AST (14-36) U/L Troponin I 0.060 H* (0.000-0.034) ng/mL Coagulation 02/23/19 Range/Units 09:43 PT 77.9 H (9.0-12.0) sec APTT 43.2 H (22.0-30.0) sec Lipids 02/23/19 Range/Units 09:43 Triglycerides 312 H (<150) mg/dL Cholesterol 232 H (<200) mg/dL HDL Cholesterol 38 L (40-60) mg/dL CBC 02/23/19 Range/Units 09:43 WBC 8.2 (3.8-10.6) k/uL RBC 4.00 (3.80-5.40) m/uL Hgb 13.0 D (11.4-16.0) gm/dL Hct 38.4 (34.0-46.0) % Plt Count 452 H (150-450) k/uL Comprehensive Metabolic Panel 02/23/19 02/24/19 Range/Units 09:43 06:46 Sodium 133 L (137-145) mmol/L Potassium 3.6 3.5 (3.5-5.1) mmol/L Chloride 87 L (98-107) mmol/L Carbon Dioxide 31 H (22-30) mmol/L BUN 3 L (7-17) mg/dL Creatinine 0.73 (0.52-1.04) mg/dL Glucose 124 H (74-99) mg/dL Calcium 9.7 (8.4-10.2) mg/dL AST 198 H (14-36) U/L ALT 76 H (9-52) U/L Alkaline Phosphatase 104 (38-126) U/L Total Protein 8.2 (6.3-8.2) g/dL Albumin 5.0 (3.5-5.0) g/dL Current Medications Generic Name Dose Route Start Last Admin Trade Name Freq PRN Reason Stop Dose Admin Aspirin 325 mg 02/24/19 09:00 Aspirin PO DAILY MICHAEL Digoxin 125 mcg 02/23/19 17:00 02/23/19 17:25 Lanoxin PO 125 mcg DAILY MICHAEL Administration Furosemide 40 mg 02/23/19 16:00 02/23/19 17:24 Lasix PO 40 mg BID@0900,1600 MICHAEL Administration Sodium Chloride 1,000 mls @ 20 mls/hr 02/23/19 13:15 02/23/19 13:37 Saline 0.9% IV 20 mls/hr .Q24H MICHAEL Administration Lorazepam 0.5 mg 02/23/19 21:00 02/23/19 21:25 Ativan PO 0.5 mg BID MICHAEL Administration Metoprolol Succinate 100 mg 02/23/19 17:00 02/23/19 17:25 Toprol Xl PO Not Given DAILY MICHAEL Nitroglycerin 0.4 mg 02/23/19 13:09 Nitrostat SUBLINGUAL Q5M PRN Chest Pain Potassium Chloride 60 meq 02/23/19 17:00 02/23/19 17:25 K-Dur 20 PO 60 meq DAILY MICHAEL Administration Spironolactone 25 mg 02/23/19 17:00 02/23/19 17:25 Aldactone PO 25 mg DAILY MICHAEL Administration Intake and Output 02/23/19 02/24/19 02/24/19 22:59 06:59 14:59 Output Total 200 Balance -200 Output: Urine 200 Other: Voiding Method Toilet Toilet # Voids 2 Weight 69.4 kg 02/23/19 09:43 02/24/19 06:46 EKG Interpretations (text) EKG shows normal sinus rhythm with right bundle branch block pattern Assessment and Plan Plan: Assessment and plan #1 symptoms of shortness of breath with associated dizziness, troponins 0.05, .05, 0.06. Upon review of prior records, patient consistently has abnormal troponins within this range. #2 elevated INR at 8.0 #3 hypomagnesemia #4 paroxysmal atrial fibrillation, on Coumadin for anticoagulation #5 nonischemic cardiomyopathy, echo performed in 2018 revealed an ejection fraction of 30-35% moderate tricuspid regurg and moderate pulmonary hypertension #6 History of transposition of great vessels with surgery at the age of 3 months #7 elevated liver enzymes, on review of prior admissions, it appears that the liver enzymes are consistently elevated. #8 hyperlipidemia Plan We will get a repeat echocardiogram with Doppler study. Replace magnesium and potassium. Monitor INRs. Check orthostatic blood pressure and heart rate every shift. Monitor for any significant tachycardia or bradycardia arrhythmias. Fur ther recommendations to follow. DNP note has been reviewed, I agree with a documented findings and plan of care. Patient was seen and examined.
[2019-02-24] MEDS ORDERED: METOPROLOL SUCCINATE (ER) 100 MG TAB.ER.24H PO SCH (09:00)
[2019-02-24] MEDS ORDERED: POTASSIUM CHLORIDE ER 20 MEQ TAB.ER PO SCH (09:00)
[2019-02-24] MEDS ORDERED: ASPIRIN 325 MG TAB PO SCH (09:00)
[2019-02-24] MEDS ORDERED: DIGOXIN 125 MCG TAB PO SCH (09:00)
[2019-02-24] MEDS ORDERED: SPIRONOLACTONE 25 MG TAB PO SCH (09:00)
[2019-02-24 09:25] LABS: Basophils # (A) 0.1 k/uL (0-0.2); Basophils % (A) 1 %; Eosinophils # (A) 0.1 k/uL (0-0.7); Eosinophils % (A) 2 %; HCT 37.9 % (34.0-46.0); HGB 12.3 gm/dL (11.4-16.0); Lymphocytes # (A) 1.6 k/uL (1.0-4.8); Lymphocytes % (A) 22 %; MCHC 32.4 g/dL (31.0-37.0); Mean Platelet Volume 8.1; Monocytes # (A) 0.6 k/uL (0-1.0); Monocytes % (A) 7 %; Neutrophils # (A) 4.9 k/uL (1.3-7.7); Neutrophils % (A) 66 %; Platelet Count 373 k/uL (150-450); RBC 3.83 m/uL (3.80-5.40); RDW 14.7 % (11.5-15.5); WBC 7.4 k/uL (3.8-10.6)
[2019-02-24 09:26] LABS: INR 2.8 (<1.2); Prothrombin Time 26.6 sec (9.0-12.0)
[2019-02-24 09:43] LABS: Calcium 9.5 mg/dL (8.4-10.2); Potassium 3.7 mmol/L (3.5-5.1)
[2019-02-24] MEDS: MAGNESIUM SULFATE-D5W PMX 1 GM in DEXTROSE/WATER 1 100ML.BAG IVPB SCH ×2 (09:47→11:46)
[2019-02-24] MEDS: SPIRONOLACTONE 25 MG TAB PO SCH (09:48)
[2019-02-24] MEDS: LORazepam 0.5 MG TAB PO SCH ×2 (09:48→20:25)
[2019-02-24] MEDS: METOPROLOL SUCCINATE (ER) 100 MG TAB.ER.24H PO SCH (09:48)
[2019-02-24] MEDS: POTASSIUM CHLORIDE ER 20 MEQ TAB.ER PO SCH ×4 (09:49→14:21)
[2019-02-24] MEDS: DIGOXIN 125 MCG TAB PO SCH (09:49)
[2019-02-24] MEDS: FUROSEMIDE 40 MG TAB PO SCH (10:27)
[2019-02-24] MEDS ORDERED: LORATADINE-PSEUDOEPH 5-120 MG 1 EACH TAB.ER.12H PO PRN (11:02)
--- NOTE | 2019-02-24 13:55 | ECHOF ---
Referral Reason:Chest pain, elevated troponin MEASUREMENTS -------- HEIGHT: 160.0 cm WEIGHT: 65.8 kg BP: RVIDd: 4.4 cm (< 3.3) IVSd: 1.5 cm (0.6 - 1.1) LVIDd: 3.8 cm (3.9 - 5.3) LVPWd: 1.7 cm (0.6 - 1.1) IVSs: 1.9 cm LVIDs: 2.3 cm LVPWs: 2.0 cm Ao Diam: 2.9 cm (2.0 - 3.7) AV Cusp: 1.9 cm (1.5 - 2.6) LA Diam: 2.7 cm (2.7 - 3.8) EPSS: 0.3 cm MV E Raheel: 1.05 m/s MV DecT: 166 ms MV A Raheel: 0.60 m/s MV E/A Ratio: 1.76 RAP: 5.00 mmHg RVSP: 95.93 mmHg MV EF SLOPE: 27.05 mm/s (70 - 150) MV EXCURSION: 1.04 cm (> 18.000) FINDINGS -------- Sinus rhythm. This was a technically difficult study with suboptimal views. Hx of surgery for transposition of th e great vessels. The left ventricular size is normal. There is moderate concentric left ventricular hypertrophy. O verall left ventricular systolic function is normal with, an EF between 55 - 60 %. There is paradox ical/dysynergic septal motion consistent with right ventricular volume overload and/or elevated right ventricular end-diastolic pressure. The right ventricle is severely enlarged. Possible Chiari network seen in the right ventricle The left atrial size is normal. The right atrial size is normal. Can not exclude possible Perimembrous VSD The aortic valve is trileaflet and appears structurally normal. There is trace mitral regurgitation. Moderate tricuspid regurgitation present. There is severe pulmonary hypertension. The right ventr icular systolic pressure, as measured by Doppler, is 95.93mmHg. There is no pulmonic regurgitation present. The aortic root size is normal. The inferior vena cava was not well visualized. There is a small, generalized pericardial effusion present. CONCLUSIONS -------- 1. Sinus rhythm. 2. This was a technically difficult study with suboptimal views. 3. Hx of surgery for transposition of the great vessels. 4. The left ventricular size is normal. 5. There is moderate concentric left ventricular hypertrophy. 6. Overall left ventricular systolic function is normal with, an EF between 55 - 60 %. 7. There is paradoxical/dysynergic septal motion consistent with right ventricular volume overload an d/or elevated right ventricular end-diastolic pressure. 8. The right ventricle is severely enlarged. 9. Possible Chiari network seen in the right ventricle 10. The left atrial size is normal. 11. The right atrial size is normal. 12. Can not exclude possible Perimembrous VSD 13. The aortic valve is trileaflet and appears structurally normal. 14. There is trace mitral regurgitation. 15. Moderate tricuspid regurgitation present. 16. There is severe pulmonary hypertension. 17. The right ventricular systolic pressure, as measured by Doppler, is 95.93mmHg. 18. There is no pulmonic regurgitation present. 19. The aortic root size is normal. 20. The inferior vena cava was not well visualized. HOUSEKEEPER/CUSTODIAN/LAUNDRY WORKER: Krystina Peter RDCS
[2019-02-24] MEDS: SODIUM CHLORIDE 0.9% 1,000 ML IV SCH (15:10)
--- NOTE | 2019-02-24 19:54 | HP ---
HISTORY AND PHYSICAL CHIEF COMPLAINT: Dizziness, shortness of breath and chest pain. 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 She presented to the emergency room with dizziness, tachycardia, and anxiety. She had slight chest discomfort, but no diaphoresis, radiation of the pain, etc. Troponin was up slightly. Her INR was 8. She thought the disease might be related to an inner ear issue or labyrinthitis, but she also perceived that she had fluid in the ears. REVIEW OF SYSTEMS: Otherwise unremarkable. She has had no neurologic problems, headache, change in vision or hearing, shortness of breath, cough, hemoptysis, orthopnea, PND, fever and chills, abdominal pain, nausea, vomiting, melena, hematochezia, renal failure, dysuria, frequency, urgency, hematuria, diabetes, etc. Past medical history, family history and personal and social histories are otherwise unremarkable and unchanged. ALLERGIES: She is not allergic to any medication. MEDICATIONS: She is on spironolactone 25 mg once a day, KCl 20 mEq once daily, metoprolol 100 mg once a day, furosemide 40 mg twice a day, Lanoxin 0.125 once a day, Coumadin 2.5 once a day, Ativan 0.5 t.i.d. p.r.n. Past medical history, family history, personal and social history are otherwise unremarkable and noncontributory. She used to smoke but she has stopped. She does not abuse alcohol. PHYSICAL EXAM: Blood pressure is 110/74 with a pulse of 100 and regular, respirations 16 and she is afebrile. In general, she appeared to be well developed, well nourished, no acute distress. Skin color is normal. Skin is warm, dry. Lymph nodes are not enlarged. Head, ears, eyes, nose, mouth, and throat were normal. Neck veins are not distended. Thyroid was not enlarged. Chest is clear. Cardiac exam demonstrated what sounded like sinus rhythm with early systolic murmur of about grade 2/6. Abdomen is soft and nontender and there are no masses or visceromegaly. Extremities are normal and neurologically she is intact. She is admitted to the hospital with diagnoses of: 1. Vertigo. 2. Chest pain. 3. Serous otitis. 4. Congenital heart disease. 5. Iatrogenic hyperprothrombinemia. PLAN: 1. Bed rest. 2. IV fluids. 3. Serial EKGs and enzymes. 4. Cardiology consult. 5. Withhold Coumadin. MMODL / IJN: [id number] /
--- NOTE | 2019-02-24 20:15 | PN ---
PROGRESS NOTE CHIEF COMPLAINT: Dizziness, congenital heart disease, chest pain and elevated troponin. HISTORY OF PRESENT ILLNESS: This lady is still a little bit dizzy, but she is not having any chest pain or shortness of breath. PHYSICAL EXAMINATION: Cardiac exam is unchanged. Her chest is clear. Abdomen is soft, nontender. IMPRESSION: 1. Chest pain. 2. Congenital heart disease. 3. Labyrinthitis. PLAN: 1. Increase activity and diet. 2. Await cardiology evaluation. MMODL / IJN: [id number] /
[2019-02-25 07:59] LABS: INR 2.4 (<1.2); Prothrombin Time 22.9 sec (9.0-12.0)
[2019-02-25 08:16] LABS: African American GFR (CKD) >90 (>60 ml/min/1.73 sqM); Anion Gap 9 mmol/L; Blood Urea Nitrogen 6 mg/dL (7-17); Calcium 9.8 mg/dL (8.4-10.2); Carbon Dioxide 30 mmol/L (22-30); Chloride 95 mmol/L (98-107); Glucose 104 mg/dL (74-99); Magnesium 1.9 mg/dL (1.6-2.3); Potassium 4.2 mmol/L (3.5-5.1); Sodium 134 mmol/L (137-145)
[2019-02-25 08:40] VITALS: RESP 15; TEMP 97.6
[2019-02-25] MEDS: DIGOXIN 125 MCG TAB PO SCH (09:15)
[2019-02-25] MEDS: METOPROLOL SUCCINATE (ER) 100 MG TAB.ER.24H PO SCH (09:17)
[2019-02-25] MEDS: POTASSIUM CHLORIDE ER 20 MEQ TAB.ER PO SCH (09:17)
[2019-02-25] MEDS: LORazepam 0.5 MG TAB PO SCH (09:17)
[2019-02-25] MEDS: SPIRONOLACTONE 25 MG TAB PO SCH (09:18)
[2019-02-25 11:56] VITALS: BP 98/64; PULSE 91
[2019-02-25] MEDS: SODIUM CHLORIDE 0.9% 1,000 ML IV SCH (16:30)
[2019-02-25] MEDS ORDERED: WARFARIN 2 MG TAB PO ONE (18:00)
--- NOTE | 2019-02-25 18:11 | DS ---
DISCHARGE SUMMARY CHIEF COMPLAINT: Chest pain and dizziness. HISTORY OF PRESENT ILLNESS AND PHYSICAL EXAM: Details of this lady's history and physical can be found in the initial workup. LABORATORY STUDIES: While she was in the hospital, she had laboratory studies, details of which can be found in the laboratory section of her chart. COURSE IN HOSPITAL: After admission, she was placed on bedrest and started on intravenous fluids. She was seen by Cardiology. It was felt that her dizziness was due to the labyrinthitis. She had no other problems while she was in the hospital and it was felt that she could go home on February 25. Her INR was very high when she came in, it was down under 2 on the day of discharge. She will go home on her usual activity, diet and medication as well as reduce the dose of Coumadin and she will be seen in the office in several days. FINAL DIAGNOSES: 1. Dizziness. 2. Labyrinthitis. 3. Iatrogenic hyperprothrombinemia. 4. Chest pain. 5. Congenital heart disease. OPERATIONS: None. CONSULTATION: Cardiology. She is improved. MMODL / IJN: [id number] /
[2019-02-26] MEDS ORDERED: WARFARIN 1 MG TAB PO SCH (18:00)
== END 2019-02-25 17:30 | disposition home or self-care (01) ==
LOC: EC 07:42 → INTOOBSV 13:09 → 3SCARD 13:09 → 4SSUR 02-24 14:37 → UNDODISIN 02-25 17:30
PROVIDERS: ADMIT Family Medicine; ATTEND Family Medicine
DX: R07.89 Other chest pain (principal); H83.09 Labyrinthitis, unspecified ear; I42.9 Cardiomyopathy, unspecified; I50.9 Heart failure, unspecified; I27.20 Pulmonary hypertension, unspecified; Q20.3 Discordant ventriculoarterial connection; D68.4 Acquired coagulation factor deficiency; H65.90 Unspecified nonsuppurative otitis media, unspecified ear; E83.42 Hypomagnesemia; R77.8 Other specified abnormalities of plasma proteins; I07.1 Rheumatic tricuspid insufficiency; I48.0 Paroxysmal atrial fibrillation; E78.5 Hyperlipidemia, unspecified; F41.9 Anxiety disorder, unspecified; I45.10 Unspecified right bundle-branch block; R74.8 Abnormal levels of other serum enzymes; Z79.01 Long term (current) use of anticoagulants; Z79.899 Other long term (current) drug therapy; Z87.891 Personal history of nicotine dependence; Z87.898 Personal history of other specified conditions
CPT/HCPCS: 96366 ×2; 96376; 96365; 96375; 99285; 36415; 93005; 93306; 85379; 83880; 80061; 80053; 80048 ×2; 82550; 80162; 83735 ×3; 84132; 84484; 85025 ×2; 85610 ×3; 85730; 71046; G0378 ×3; J2060; J3475 ×2

== ENCOUNTER 2019-03-13 17:53 | Inpatient (IN) | payer OTHER ==
[2019-03-13] MEDS ORDERED: FAMOTIDINE 20 MG/2 ML VIAL IV STA (18:48)
[2019-03-13] MEDS ORDERED: ONDANSETRON 4 MG/2 ML VIAL IVP STA (18:48)
[2019-03-13] MEDS ORDERED: SODIUM CHLORIDE 0.9% 1,000 ML IV STA (18:48)
--- NOTE | 2019-03-13 18:56 | ED ---
General Adult HPI - General Chief complaint: Psychiatric Symptoms Stated complaint: suicidal Time Seen by Provider: 03/13/19 18:17 Source: patient, RN notes reviewed Mode of arrival: ambulatory Limitations: no limitations - History of Present Illness Initial comments: Patient is a pleasant 23-year-old female presenting to the emergency Department with complaints of depression and suicidal thoughts. Patient states she has been drinking heavily for the past 4 days. Patient does have history of alcohol problems. Patient also admits to history of atrial fibrillation and states she has palpitations. Patient did try to overdose yesterday around 1 PM taking 21 of an unknown sleeping pill. Patient does feel nauseous and has vomited. Patient intravenous this to her alcohol use. No abdominal pain. Patient denies hallucinations. No homicidal thoughts. - Related Data Home Medications Medication Instructions Recorded Confirmed Furosemide [Lasix] 40 mg PO BID 02/25/17 03/13/19 Digoxin [Digitek] 125 mcg PO DAILY 12/19/17 03/13/19 Spironolactone [Aldactone] 25 mg PO DAILY 12/19/17 03/13/19 Metoprolol Succinate (ER) [Toprol 100 mg PO DAILY 03/19/18 03/13/19 XL] LORazepam [Ativan] 0.5 mg PO BID 01/05/19 03/13/19 Potassium Chloride ER [K-Dur 20] 60 meq PO DAILY 01/05/19 03/13/19 Warfarin [Coumadin] 1 mg PO HS@1800 03/13/19 03/13/19 Allergies Allergy/AdvReac Type Severity Reaction Status Date / Time No Known Allergies Allergy Verified 03/13/19 19:44 Review of Systems ROS Statement: Those systems with pertinent positive or pertinent negative responses have been documented in the HPI. ROS Other: All systems not noted in ROS Statement are negative. Constitutional: Denies: fever Eyes: Denies: eye pain ENT: Denies: ear pain Respiratory: Denies: cough Cardiovascular: Reports: palpitations. Denies: chest pain Endocrine: Reports: fatigue Gastrointestinal: Reports: nausea, vomiting. 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 History of Any Multi-Drug Resistant Organisms: ESBL Date of last positivie culture/infection: 02/25/17 ESBL-Klebsiella MDRO Source:: Urine Past Surgical History: No Surgical Hx Reported Additional Past Surgical History / Comment(s): open heart surg for transposition of great arteries, CARDIOVERTED FOR A- FIB twice Past Anesthesia/Blood Transfusion Reactions: No Reported Reaction Past Psychological History: No Psychological Hx Reported, Anxiety Smoking Status: Former smoker Past Alcohol Use History: None Reported Past Drug Use History: None Reported - Past Family History Mother Family Medical History: No Reported History Additional Family Medical History / Comment(s): Mother is healthy Father Family Medical History: No Reported History Additional Family Medical History / Comment(s): Father is healthy General Exam Limitations: no limitations General appearance: alert, in no apparent distress Head exam: Present: atraumatic, normocephalic Eye exam: Present: normal appearance, PERRL, EOMI ENT exam: Present: normal oropharynx Neck exam: Present: normal inspection Respiratory exam: Present: normal lung sounds bilaterally Cardiovascular Exam: Present: tachycardia, irregular rhythm GI/Abdominal exam: Present: soft. Absent: tenderness Extremities exam: Present: normal inspection. Absent: pedal edema, calf tenderness Neurological exam: Present: alert Psychiatric exam: Present: depressed, anxious Skin exam: Present: normal color Course Vital Signs 03/13/19 03/13/19 18:09 20:26 Temperature 97.6 F Pulse Rate 57 L 105 H Respiratory 118 H 15 Rate Blood Pressure 100/70 102/89 O2 Sat by Pulse 95 95 Oximetry - Reevaluation(s) Reevaluation #1: 03/13/19 19:59 Patient states she is on Coumadin. EKG Findings - EKG Comments: EKG Findings:: A. fib with rate of 107, RVR. QRS 162. QT 344. QTC 459. [place] indeterminate. Right bundle-branch block. Nonspecific ST-T. Medical Decision Making - Medical Decision Making Patient reevaluated and somewhat improved. Patient is updated on results and plan. Case was discussed in detail with Dr. Doll, covering for Dr. Wilson, who will admit. Consults we placed for cardiology and GI and psychiatric consultation. - Lab Data Result diagrams: 03/13/19 19:19 03/13/19 20:01 Lab Results 03/13/19 03/13/19 03/13/19 Range/Units 19:19 19:19 19:19 WBC 12.2 H (3.8-10.6) k/uL RBC 4.24 (3.80-5.40) m/uL Hgb 13.4 (11.4-16.0) gm/dL Hct 39.6 (34.0-46.0) % MCV 93.4 D (80.0-100.0) fL MCH 31.6 (25.0-35.0) pg MCHC 33.8 (31.0-37.0) g/dL RDW 14.4 (11.5-15.5) % Plt Count 511 H (150-450) k/uL Neutrophils % 68 % Lymphocytes % 18 % Monocytes % 10 % Eosinophils % 0 % Basophils % 1 % Neutrophils # 8.4 H (1.3-7.7) k/uL Lymphocytes # 2.2 (1.0-4.8) k/uL Monocytes # 1.2 H (0-1.0) k/uL Eosinophils # 0.0 (0-0.7) k/uL Basophils # 0.1 (0-0.2) k/uL PT 18.7 H (9.0-12.0) sec INR 1.9 H (<1.2) APTT 29.7 (22.0-30.0) sec Sodium (137-145) mmol/L Potassium (3.5-5.1) mmol/L Chloride (98-107) mmol/L Carbon Dioxide (22-30) mmol/L Anion Gap mmol/L BUN (7-17) mg/dL Creatinine (0.52-1.04) mg/dL Est GFR (CKD-EPI)AfAm (>60 ml/min/1.73 sqM) Est GFR (CKD-EPI)NonAf (>60 ml/min/1.73 sqM) Glucose (74-99) mg/dL Calcium (8.4-10.2) mg/dL Total Bilirubin (0.2-1.3) mg/dL AST (14-36) U/L ALT (9-52) U/L Alkaline Phosphatase (38-126) U/L Troponin I 0.078 H* (0.000-0.034) ng/mL Total Protein (6.3-8.2) g/dL Albumin (3.5-5.0) g/dL Amylase (30-110) U/L Lipase (23-300) U/L Digoxin ng/mL Salicylates mg/dL Acetaminophen ug/mL Serum Alcohol mg/dL 03/13/19 Range/Units 20:01 WBC (3.8-10.6) k/uL RBC (3.80-5.40) m/uL Hgb (11.4-16.0) gm/dL Hct (34.0-46.0) % MCV (80.0-100.0) fL MCH (25.0-35.0) pg MCHC (31.0-37.0) g/dL RDW (11.5-15.5) % Plt Count (150-450) k/uL Neutrophils % % Lymphocytes % % Monocytes % % Eosinophils % % Basophils % % Neutrophils # (1.3-7.7) k/uL Lymphocytes # (1.0-4.8) k/uL Monocytes # (0-1.0) k/uL Eosinophils # (0-0.7) k/uL Basophils # (0-0.2) k/uL PT (9.0-12.0) sec INR (<1.2) APTT (22.0-30.0) sec Sodium 129 L (137-145) mmol/L Potassium 3.0 L (3.5-5.1) mmol/L Chloride 80 L (98-107) mmol/L Carbon Dioxide 24 (22-30) mmol/L Anion Gap 25 mmol/L BUN 2 L (7-17) mg/dL Creatinine 0.60 (0.52-1.04) mg/dL Est GFR (CKD-EPI)AfAm >90 (>60 ml/min/1.73 sqM) Est GFR (CKD-EPI)NonAf >90 (>60 ml/min/1.73 sqM) Glucose 118 H (74-99) mg/dL Calcium 9.3 (8.4-10.2) mg/dL Total Bilirubin 2.3 H (0.2-1.3) mg/dL AST 203 H (14-36) U/L ALT 70 H (9-52) U/L Alkaline Phosphatase 143 H (38-126) U/L Troponin I (0.000-0.034) ng/mL Total Protein 7.9 (6.3-8.2) g/dL Albumin 4.7 (3.5-5.0) g/dL Amylase 306 H* (30-110) U/L Lipase 4098 H (23-300) U/L Digoxin 0.7 ng/mL Salicylates <1.0 mg/dL Acetaminophen <10.0 ug/mL Serum Alcohol 185 mg/dL Disposition Clinical Impression: Atrial fibrillation, Acute pancreatitis, Suicidal ideation, Overdose Disposition: ADMITTED IP TO THIS [facility] Condition: Serious Is patient prescribed a controlled substance at d/c from ED?: No Referrals: Rodney Wilson MD [Primary Care Provider] - 1-2 days Decision Time: 21:08
[2019-03-13 19:36] LABS: INR 1.9 (<1.2); Partial Thromboplastin Time 29.7 sec (22.0-30.0); Prothrombin Time 18.7 sec (9.0-12.0)
[2019-03-13 19:37] LABS: Basophils # (A) 0.1 k/uL (0-0.2); Basophils % (A) 1 %; Eosinophils % (A) 0 %; HCT 39.6 % (34.0-46.0); HGB 13.4 gm/dL (11.4-16.0); Lymphocytes # (A) 2.2 k/uL (1.0-4.8); Lymphocytes % (A) 18 %; MCH 31.6 pg (25.0-35.0); MCHC 33.8 g/dL (31.0-37.0); Mean Platelet Volume 7.1; Monocytes # (A) 1.2 k/uL (0-1.0); Monocytes % (A) 10 %; Neutrophils # (A) 8.4 k/uL (1.3-7.7); Neutrophils % (A) 68 %; Platelet Count 511 k/uL (150-450); RBC 4.24 m/uL (3.80-5.40); RDW 14.4 % (11.5-15.5); WBC 12.2 k/uL (3.8-10.6)
[2019-03-13 19:49] LABS: MCV 93.4 fL (80.0-100.0)
[2019-03-13] MEDS ORDERED: LORazepam 2 MG/ML INJ IV STA (20:24)
[2019-03-13 20:26] LABS: ALT 70 U/L (9-52); AST 203 U/L (14-36); Acetaminophen <10.0 ug/mL; African American GFR (CKD) >90 (>60 ml/min/1.73 sqM); Albumin 4.7 g/dL (3.5-5.0); Alkaline Phosphatase 143 U/L (38-126); Anion Gap 25 mmol/L; Blood Urea Nitrogen 2 mg/dL (7-17); Calcium 9.3 mg/dL (8.4-10.2); Carbon Dioxide 24 mmol/L (22-30); Chloride 80 mmol/L (98-107); Digoxin 0.7 ng/mL; Glucose 118 mg/dL (74-99); Salicylate <1.0 mg/dL; Sodium 129 mmol/L (137-145); Total Bilirubin 2.3 mg/dL (0.2-1.3); Total Protein 7.9 g/dL (6.3-8.2)
[2019-03-13 20:37] LABS: Alcohol 185 mg/dL
[2019-03-13 20:38] LABS: Amylase 306 U/L (30-110); Lipase 4098 U/L (23-300)
[2019-03-13] MEDS ORDERED: ASPIRIN 81 MG PO STA (21:14)
[2019-03-13] MEDS ORDERED: NITROGLYCERIN SL TABS 0.4 MG TAB SUBLINGUAL PRN (21:14)
[2019-03-13] MEDS ORDERED: NALOXONE 0.4 MG/ML 1 ML VIAL IV PRN (21:14)
[2019-03-13] MEDS ORDERED: THIAMINE 100 MG/ML 2 ML VIAL IM STA (21:19)
[2019-03-13] MEDS ORDERED: LORazepam 2 MG/ML INJ IV PRN ×3 (21:19)
--- NOTE | 2019-03-13 21:25 | XR ---
EXAMINATION TYPE: XR chest 2V DATE OF EXAM: 03/13/2019 COMPARISON: 02/23/2019 HISTORY: Cough TECHNIQUE: Frontal and lateral views of the chest are obtained. FINDINGS: Heart is slightly enlarged with prominent left ventricle.. Lungs are clear of infiltrate. There are chest leads. Bony thorax is intact. There is no pleural effusion. There is sternal wires no nancy. IMPRESSION: No active cardiopulmonary disease.. No change.
[2019-03-13] MEDS: ONDANSETRON 4 MG/2 ML VIAL IVP PRN (22:15)
--- NOTE | 2019-03-13 22:36 | US ---
EXAM: US Abdomen, right upper quadrant CLINICAL HISTORY: ITS.REASON US Reason: Evaluate pancreas and liver and gallbladder TECHNIQUE: Real-time ultrasound of the abdomen (RUQ) with image documentation. COMPARISON: 01/05/19. FINDINGS: Liver: Increased and coarsened echogenicity. Favor parenchymal steatosis, though other hepatocellular disease could have this appearance. Gallbladder: Unremarkable. No gallstones. Common bile duct: Unremarkable as visualized. No stones. No dilation. Pancreas: Unremarkable as visualized. Right kidney: Unremarkable. No stones. No solid mass. No hydronephrosis. IMPRESSION: No gallstones or other biliary pathology. Hepatic findings are most suggestive of steatosis, though other hepatocellular disease could have this appearance.
[2019-03-13] MEDS: THIAMINE 100 MG TAB PO SCH ×2 (22:54→23:20)
[2019-03-13 23:07] VITALS: BMI 24.9
[2019-03-13] MEDS: LORazepam 2 MG/ML INJ IV PRN (23:30)
[2019-03-13] MEDS: SODIUM CHLORIDE 0.9% 1,000 ML IV SCH (23:34)
[2019-03-14] MEDS ORDERED: Magnesium Replacement Protocol 1 EACH MISC MISCELLANE PRN (01:13)
[2019-03-14] MEDS: MAGNESIUM SULFATE-D5W PMX 1 GM in DEXTROSE/WATER 1 100ML.BAG IVPB SCH ×3 (01:31→03:38)
[2019-03-14] MEDS: LORazepam 2 MG/ML INJ IV PRN ×4 (04:44→19:02)
[2019-03-14 06:27] LABS: Basophils # (A) 0.1 k/uL (0-0.2); Basophils % (A) 1 %; Eosinophils # (A) 0.1 k/uL (0-0.7); Eosinophils % (A) 1 %; HCT 35.1 % (34.0-46.0); HGB 11.7 gm/dL (11.4-16.0); Lymphocytes % (A) 11 %; MCHC 33.4 g/dL (31.0-37.0); MCV 95.7 fL (80.0-100.0); Mean Platelet Volume 7.3; Monocytes # (A) 0.8 k/uL (0-1.0); Monocytes % (A) 9 %; Neutrophils # (A) 6.9 k/uL (1.3-7.7); Neutrophils % (A) 77 %; Platelet Count 321 k/uL (150-450); RBC 3.67 m/uL (3.80-5.40); RDW 15.1 % (11.5-15.5)
[2019-03-14 06:37] LABS: ALT 55 U/L (9-52); AST 151 U/L (14-36); African American GFR (CKD) >90 (>60 ml/min/1.73 sqM); Albumin 3.6 g/dL (3.5-5.0); Alkaline Phosphatase 121 U/L (38-126); Amylase 211 U/L (30-110); Anion Gap 13 mmol/L; Blood Urea Nitrogen 4 mg/dL (7-17); Carbon Dioxide 31 mmol/L (22-30); Chloride 83 mmol/L (98-107); Cholesterol 207 mg/dL (<200); Glucose 100 mg/dL (74-99); HDL Cholesterol 32 mg/dL (40-60); LDL Cholesterol,Calculated 123 mg/dL (0-99); Potassium 2.8 mmol/L (3.5-5.1); Sodium 127 mmol/L (137-145); Total Bilirubin 3.2 mg/dL (0.2-1.3); Total Protein 6.3 g/dL (6.3-8.2); Triglycerides 261 mg/dL (<150)
[2019-03-14 06:39] LABS: INR 1.9 (<1.2); Prothrombin Time 18.9 sec (9.0-12.0)
[2019-03-14 06:47] LABS: Lipase 3126 U/L (23-300)
[2019-03-14 08:08] LABS: Appearance,Urine Clear (Clear); Bilirubin,Urine Negative (Negative); Blood,Urine Negative (Negative); Color,Urine Light Yellow; Glucose,Urine (UA) Negative (Negative); Ketones,Urine Negative (Negative); Leukocyte Esterase,Urine Trace (Negative); Nitrite,Urine Negative (Negative); Protein,Urine Negative (Negative); RBC,Urine <1 /hpf (0-5); Specific Gravity,Urine 1.001 (1.001-1.035); Squamous Epithelial Cell,Urine <1 /hpf (0-4); Urobilinogen,Urine <2.0 mg/dL (<2.0); WBC,Urine 1 /hpf (0-5)
[2019-03-14 08:14] LABS: Amphetamine Screen,Urine Not Detected (NotDetected); Barbiturate Screen,Urine Not Detected (NotDetected); Benzodiazepines Screen,Urine Detected (NotDetected); Cocaine Screen,Urine Not Detected (NotDetected); Methadone Screen, Urine Not Detected (NotDetected); Opiate Screen,Urine Not Detected (NotDetected); Oxycodone Screen, Urine Not Detected (NotDetected); Phencyclidine Screen,Urine Not Detected (NotDetected); Tricyclic Antidepressant,Urine Not Detected (NotDetected); Urn Cannabinoid Scrn Not Detected (NotDetected)
[2019-03-14] MEDS: ONDANSETRON 4 MG/2 ML VIAL IVP PRN (08:22)
[2019-03-14] MEDS: THIAMINE 100 MG TAB PO SCH ×2 (08:22→17:48)
[2019-03-14] MEDS: PANTOPRAZOLE 40 MG/10 ML VIAL IV SCH (08:22)
[2019-03-14] MEDS: MULTIVITAMINS, THERA 1 EACH TAB PO SCH (08:22)
[2019-03-14] MEDS: SODIUM CHLORIDE 0.9% 1,000 ML IV SCH (08:27)
--- NOTE | 2019-03-14 09:21 | P.CRDCN ---
History of Present Illness Consult date: 03/14/19 Requesting physician: Becky Doll Consult reason: atrial fibrillation Chief complaint: Depression, suicidal attempt History of present illness: This is a 33-year-old female with history of transportation of great vessels with surgery at the age of 5, paroxysmal atrial fibrillation, history of congestive heart failure, EF be FOLLOWED, prior history of cardioversions, prior history of smoking, anxiety. She presented to the emergency room with depression and suicidal ideation. According to the patient, she's been on a drinking binge for the past 3 or 4 days. She does have history of having issues with alcohol in the past as well. According to her she's been quite depressed recently, according to the emergency room notes she did try to overdose around 1 PM taking 21 tablets of an unknown sleeping pill. Patient also mentioned this morning that she recently lost her job. Ultrasound of the abdomen was performed which did not reveal any gallstones or biliary pathology. Hepatic findings most suggestive of steatosis, though other hepatocellular disease could have this appearance. Chest x-ray did not reveal any active cardiopulmonary disease. EKG on presentation here showed sinus tachycardia with PACs. Patient is noted on the monitor to be having intermittent episodes of atrial fibrillation. Blood pressure 120/80 with a heart rate in the 90s this morning, 97% on room air. Afebrile. White blood cell count 12.2 on arrival, 9.0 this morning, hemoglobin 11.7, platelet count 321 on arrival her platelet count was 511. Her pro time is 18.7 with an INR of 1.9, admission labs sodium 129, potassium 3.0, BUN 2 and creatinine 0.6. This morning's labs sodium 127, potassium 2.8, BUN 4 and creatinine 0.7. Lactic acid 5.7 on admission, 4.9 this morning magnesium 1.2 replaced 2.8, total bilirubin 2.3 and 3.2, AST 203 and 151, ALT 70 and 55, alk phos 143 and 121 this morning, troponins 0.078, 0.097, 0.099. Patient is noted on prior admissions to consistently have abnormality in her troponins. Cholesterol 207, LDL 123, HDL 32, triglycerides 261. Amylase 306 on admission with a lipase of 4098, this morning to 11 and 3126. Digoxin level 0.7, drug screen positive for benzos. Serum alcohol level 185. At the time of my determination this morning, patient still appears to be quite depressed, she does state however that she's feeling better overall and she has been recently. Past Medical History Past Medical History: Atrial Fibrillation, Heart Failure Additional Past Medical History / Comment(s): Afib with RVR, pt had transposition of great arteries as an , ETOH abuse, alcohol withdrawals, hypomagnesemia. History of Any Multi-Drug Resistant Organisms: ESBL Date of last positivie culture/infection: 02/25/17 ESBL-Klebsiella MDRO Source:: Urine Past Surgical History: No Surgical Hx Reported Additional Past Surgical History / Comment(s): open heart surg for transposition of great arteries, CARDIOVERTED FOR A- FIB twice Past Anesthesia/Blood Transfusion Reactions: No Reported Reaction Past Psychological History: No Psychological Hx Reported, Anxiety Additional Psychological History / Comment(s): Pt resides alone. She is employed. Smoking Status: Former smoker Past Alcohol Use History: None Reported Additional Past Alcohol Use History / Comment(s): Pt started smoking in 2002 and quit in 2016. Pt states she used to be a heavy drinker but now drinks occasionally and less than 7 drinks a week. Past Drug Use History: None Reported - Past Family History Mother Family Medical History: No Reported History Additional Family Medical History / Comment(s): Mother is healthy Father Family Medical History: No Reported History Additional Family Medical History / Comment(s): Father is healthy Medications and Allergies Home Medications Medication Instructions Recorded Confirmed Type Furosemide [Lasix] 40 mg PO BID 02/25/17 03/13/19 History Digoxin [Digitek] 125 mcg PO DAILY 12/19/17 03/13/19 History Spironolactone [Aldactone] 25 mg PO DAILY 12/19/17 03/13/19 History Metoprolol Succinate (ER) [Toprol 100 mg PO DAILY 03/19/18 03/13/19 History XL] LORazepam [Ativan] 0.5 mg PO BID 01/05/19 03/13/19 History Potassium Chloride ER [K-Dur 20] 60 meq PO DAILY 01/05/19 03/13/19 History Warfarin [Coumadin] 1 mg PO HS@1800 03/13/19 03/13/19 History Allergies Allergy/AdvReac Type Severity Reaction Status Date / Time No Known Allergies Allergy Verified 03/13/19 19:44 Physical Exam Vitals: Vital Signs Temp Pulse Pulse Resp BP BP Pulse Ox 03/14/19 08:15 98.1 F 95 16 121/86 98 03/14/19 04:00 97.8 F 95 16 103/75 95 03/13/19 23:43 103 H 03/13/19 22:57 97.7 F 103 H 18 129/61 94 L 03/13/19 22:52 97.7 F 103 H 20 129/61 94 L 03/13/19 22:10 107 H 21 107/53 97 03/13/19 22:00 108 H 20 107/96 95 03/13/19 21:50 105 H 12 107/96 94 L 03/13/19 21:40 112 H 21 107/96 97 03/13/19 21:10 111 H 21 107/96 96 03/13/19 20:40 108 H 12 102/89 95 03/13/19 20:26 105 H 15 102/89 95 03/13/19 18:09 97.6 F 57 L 118 H 100/70 95 Intake and Output 03/13/19 03/14/19 03/14/19 22:59 06:59 14:59 Other: Weight 68.039 kg PHYSICAL EXAMINATION: GENERAL: 33-year-old female in no acute distress at the time of my examination HEENT: Head is atraumatic, normocephalic. Pupils equal, round. Sclera anicteric. Conjunctiva are clear. Mucous membranes of the mouth are moist. Neck is supple. There is no elevated jugular venous pressure.No carotid bruit is heard. HEART EXAMINATION: Heart S1, S2 irregularly irregular, systolic murmur is heard . CHEST EXAMINATION: Lungs are clear to auscultation and precussion. No chest wall tenderness is noted on palpation or with deep breathing. ABDOMEN: Soft, nontender. Bowel sounds are heard. No organomegaly noted. EXTREMITIES: 2+ peripheral pulses with no evidence of peripheral edema and no calf tenderness noted. NEUROLOGIC patient is awake, alert and oriented X3. . Results 03/14/19 06:06 03/14/19 06:06 Cardiac Enzymes 03/13/19 03/13/19 03/14/19 Range/Units 19:19 20:01 00:55 AST 203 H (14-36) U/L Troponin I 0.078 H* 0.097 H* (0.000-0.034) ng/mL 03/14/19 03/14/19 Range/Units 06:06 06:06 AST 151 H (14-36) U/L Troponin I 0.099 H* (0.000-0.034) ng/mL Coagulation 03/13/19 03/14/19 Range/Units 19:19 06:06 PT 18.7 H 18.9 H (9.0-12.0) sec APTT 29.7 (22.0-30.0) sec Lipids 03/14/19 Range/Units 06:06 Triglycerides 261 H (<150) mg/dL Cholesterol 207 H (<200) mg/dL HDL Cholesterol 32 L (40-60) mg/dL CBC 03/13/19 03/14/19 Range/Units 19:19 06:06 WBC 12.2 H 9.0 (3.8-10.6) k/uL RBC 4.24 3.67 L (3.80-5.40) m/uL Hgb 13.4 11.7 (11.4-16.0) gm/dL Hct 39.6 35.1 (34.0-46.0) % Plt Count 511 H 321 (150-450) k/uL Comprehensive Metabolic Panel 03/13/19 03/14/19 Range/Units 20:01 06:06 Sodium 129 L 127 L (137-145) mmol/L Potassium 3.0 L 2.8 L (3.5-5.1) mmol/L Chloride 80 L 83 L (98-107) mmol/L Carbon Dioxide 24 31 H (22-30) mmol/L BUN 2 L 4 L (7-17) mg/dL Creatinine 0.60 0.72 (0.52-1.04) mg/dL Glucose 118 H 100 H (74-99) mg/dL Calcium 9.3 8.0 L (8.4-10.2) mg/dL AST 203 H 151 H (14-36) U/L ALT 70 H 55 H (9-52) U/L Alkaline Phosphatase 143 H 121 (38-126) U/L Total Protein 7.9 6.3 (6.3-8.2) g/dL Albumin 4.7 3.6 (3.5-5.0) g/dL Current Medications Generic Name Dose Route Start Last Admin Trade Name Freq PRN Reason Stop Dose Admin Hydromorphone HCl 1 mg 03/13/19 21:14 Dilaudid IVP Q3HR PRN Severe Pain Sodium Chloride 1,000 mls @ 150 mls/hr 03/13/19 21:15 03/14/19 08:27 Saline 0.9% IV Not Given .Q6H40M MICHAEL Lorazepam 1 mg 03/13/19 21:19 03/14/19 08:22 Ativan IV 1 mg Q2HR PRN Administration CIWA 8 or 9 Lorazepam 1 mg 03/13/19 21:19 03/14/19 01:30 Ativan IV 1 mg Q1HR PRN Administration CIWA 10 to 15 Lorazepam 2 mg 03/13/19 21:19 Ativan IV 03/15/19 21:19 Q10M PRN CIWA 16 or higher Lorazepam 2 mg 03/13/19 21:19 Ativan IV Q6HR PRN Seizures Miscellaneous Information 1 each 03/14/19 01:13 Magnesium Per Protocol MISCELLANE DAILY PRN Per Protocol Protocol Multivitamins 1 each 03/14/19 09:00 03/14/19 08:22 Theragran PO 1 each DAILY MICHAEL Administration Naloxone HCl 0.2 mg 03/13/19 21:14 Narcan IV Q2M PRN Opioid Reversal Nitroglycerin 0.4 mg 03/13/19 21:14 Nitrostat SUBLINGUAL Q5M PRN Chest Pain Ondansetron HCl 4 mg 03/13/19 21:14 03/14/19 08:22 Zofran IVP 4 mg Q8HR PRN Administration Nausea And Vomiting Pantoprazole Sodium 40 mg 03/14/19 09:00 03/14/19 08:22 Protonix IV 40 mg DAILY MICHAEL Administration Thiamine HCl 100 mg 03/13/19 17:00 03/14/19 08:22 Vitamin B-1 PO 100 mg BID-W/MEALS MICHAEL Administration Intake and Output 03/13/19 03/14/19 03/14/19 22:59 06:59 14:59 Other: Weight 68.039 kg 03/14/19 06:06 03/14/19 06:06 EKG Interpretations (text) EKG on admission here showed a normal sinus rhythm with left bundle branch block pattern and frequent PACs. Assessment and Plan Plan: Assessment and plan #1 depression with suicidal attempt and drug overdose #2 paroxysmal atrial fibrillation, on Coumadin for anticoagulation, INR 1.9 #3 nonischemic cardiomyopathy, most resting echo was performed in January of this year which revealed an ejection fraction of 55-60%, there is paradoxical to surgery that septal motion consistent with right ventricular volume overload and elevated right ventricular end-diastolic pressure, RV is severely enlarged, cannot exclude a possible. Membranous VSD, moderate TR, severe pulmonary hypertension #4 history of transposition of the great vessels #5 elevated liver enzymes, consistent with prior admissions #6 hypomagnesemia #7 hypokalemia #8 hyperlipidemia #9 hyponatremia #10 abnormality in troponin, consistent with prior admissions. Plan Magnesium has been replaced, we will replace the patient's Potassium, resume Aldactone, metoprolol, continue Coumadin to maintain an INR in the range of 2-5. As the patient just recently had an echo performed in January we will not repeat an echo on this admission. DNP note has been reviewed, I agree with a documented findings and plan of care. Patient was seen and examined.
[2019-03-14] MEDS ORDERED: Potassium Replacement Protocol 1 EACH MISC MISCELLANE PRN (09:24)
--- NOTE | 2019-03-14 11:41 | P.CONS ---
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 Seen at [facility] 1 year ago in hepatobiliary clinic with no further followup advised. She admits binge drinking alcohol prior to admission but denies binge drinking previously. Occasional social drink. Consult requested for elevated pancreatic enzymes. Lipase 4098 presently 3126. Amylase 211. Total bilirubin 2.3. AST 203. ALT 70 AP 143. Lactic acid 5.7. Sodium 129. Potassium 3.0. BUN 2. Creatinine 0.6. INR 1.9. Salicylate less than 1. acetaminophen less than 10. Serum alcohol 185. Troponin 0.09 Ultrasound abdomen no biliary pathology. No gallstones. Suggestion of steatosis. Previous LFTs in December 2018 total bilirubin 3.0. AST 245. ALT 109. AP 135. Ultrasound in December 2018 no gallstones. No biliary tree dilation. Possible hepatic steatosis. Review of Systems Constitutional: Denies fever, chills, sweats, weight gain, or loss. HEENT: Negative for migraines, blurred vision or loss, earaches, drainage, tinnitus, oral mucosal lesions, dysphagia, or odynophagia. CARDIAC: Negative for chest pain, arrhythmias, or palpitation. RESPIRATORY: Negative for shortness of breath, hemoptysis, cough, or sputum production. GI: See HPI for pertinent findings. : Negative for hematuria, urgency, frequency, polyuria, or dysuria. GYNc: Denies possibility of . Negative vaginal discharge. MUSCULOSKELETAL: Negative for muscle aches, swelling, arthritis, and arthralgias. NEUROLOGIC: Negative for stroke or TIA. ENDOCRINE: Negative for thyroid problems. SKIN: Negative for rash or itching. PSYCHIATRIC: Suicidal ideations depression Past Medical History Past Medical History: Atrial Fibrillation, Heart Failure Additional Past Medical History / Comment(s): Afib with RVR, pt had transposition of great arteries as an , ETOH abuse, alcohol withdrawals, hypomagnesemia. History of Any Multi-Drug Resistant Organisms: ESBL Year Discovered:: 02/25/17 ESBL-Klebsiella MDRO Source:: Urine Past Surgical History: No Surgical Hx Reported Additional Past Surgical History / Comment(s): open heart surg for transposition of great arteries, CARDIOVERTED FOR A- FIB twice Past Anesthesia/Blood Transfusion Reactions: No Reported Reaction Past Psychological History: No Psychological Hx Reported, Anxiety Additional Psychological History / Comment(s): Pt resides alone. She is employed. Smoking Status: Former smoker Past Alcohol Use History: None Reported Additional Past Alcohol Use History / Comment(s): Pt started smoking in 2002 and quit in 2016. Pt states she used to be a heavy drinker but now drinks occasionally and less than 7 drinks a week. Past Drug Use History: None Reported - Past Family History Mother Family Medical History: No Reported History Additional Family Medical History / Comment(s): Mother is healthy Father Family Medical History: No Reported History Additional Family Medical History / Comment(s): Father is healthy Medications and Allergies Home Medications Medication Instructions Recorded Confirmed Type Furosemide [Lasix] 40 mg PO BID 02/25/17 03/13/19 History Digoxin [Digitek] 125 mcg PO DAILY 12/19/17 03/13/19 History Spironolactone [Aldactone] 25 mg PO DAILY 12/19/17 03/13/19 History Metoprolol Succinate (ER) [Toprol 100 mg PO DAILY 03/19/18 03/13/19 History XL] LORazepam [Ativan] 0.5 mg PO BID 01/05/19 03/13/19 History Potassium Chloride ER [K-Dur 20] 60 meq PO DAILY 01/05/19 03/13/19 History Warfarin [Coumadin] 1 mg PO HS@1800 03/13/19 03/13/19 History Multivitamins, Thera [Multivitamin 1 each PO DAILY tab 03/16/19 Rx (formulary)] Thiamine [Vitamin B-1] 100 mg PO BID-W/MEALS tab 03/16/19 Rx Allergies Allergy/AdvReac Type Severity Reaction Status Date / Time No Known Allergies Allergy Verified 03/13/19 19:44 Physical Exam Vitals: Vital Signs Temp Pulse Pulse Resp BP BP Pulse Ox 03/14/19 04:00 97.8 F 95 16 103/75 95 03/13/19 23:43 103 H 03/13/19 22:57 97.7 F 103 H 18 129/61 94 L 03/13/19 22:52 97.7 F 103 H 20 129/61 94 L 03/13/19 22:10 107 H 21 107/53 97 03/13/19 22:00 108 H 20 107/96 95 03/13/19 21:50 105 H 12 107/96 94 L 03/13/19 21:40 112 H 21 107/96 97 03/13/19 21:10 111 H 21 107/96 96 03/13/19 20:40 108 H 12 102/89 95 03/13/19 20:26 105 H 15 102/89 95 03/13/19 18:09 97.6 F 57 L 118 H 100/70 95 Intake and Output 03/13/19 03/14/19 03/14/19 22:59 06:59 14:59 Other: Weight 68.039 kg General appearance: The patient is alert, oriented, in no acute distress. Sitter at bedside. HET: Head is normocephalic and atraumatic. Pupils are equal and reactive. Oropharynx is clear without lesions. Neck: Supple without lymphadenopathy. Trachea midline. Heart: S1 S2. Regular rate and rhythm. Lungs: No crackles or wheezes are heard. Abdomen: Soft, nontender, nondistended with bowel sounds. No peritoneal signs. No palpable organomegaly or masses. Extremities: Normal skin color and turgor. No cyanosis, rash, ulceration, clubbing, or edema. Radial and pedal pulses are 2/4 bilaterally. Neurological: No focal deficits. Strength and sensation are grossly intact. Results CBC & Chem 7: 03/16/19 06:35 03/16/19 06:35 Labs: Abnormal Lab Results - Last 24 Hours (Table) 03/13/19 03/13/19 03/13/19 Range/Units 19:19 19:19 19:19 WBC 12.2 H (3.8-10.6) k/uL RBC (3.80-5.40) m/uL Plt Count 511 H (150-450) k/uL Neutrophils # 8.4 H (1.3-7.7) k/uL Monocytes # 1.2 H (0-1.0) k/uL PT 18.7 H (9.0-12.0) sec INR 1.9 H (<1.2) Sodium (137-145) mmol/L Potassium (3.5-5.1) mmol/L Chloride (98-107) mmol/L Carbon Dioxide (22-30) mmol/L BUN (7-17) mg/dL Glucose (74-99) mg/dL Plasma Lactic Acid Andrew (0.7-2.0) mmol/L Calcium (8.4-10.2) mg/dL Magnesium (1.6-2.3) mg/dL Total Bilirubin (0.2-1.3) mg/dL AST (14-36) U/L ALT (9-52) U/L Alkaline Phosphatase (38-126) U/L Troponin I 0.078 H* (0.000-0.034) ng/mL Triglycerides (<150) mg/dL Cholesterol (<200) mg/dL LDL Cholesterol, Calc (0-99) mg/dL HDL Cholesterol (40-60) mg/dL Amylase (30-110) U/L Lipase (23-300) U/L 03/13/19 03/13/19 03/13/19 Range/Units 20:01 21:19 22:28 WBC (3.8-10.6) k/uL RBC (3.80-5.40) m/uL Plt Count (150-450) k/uL Neutrophils # (1.3-7.7) k/uL Monocytes # (0-1.0) k/uL PT (9.0-12.0) sec INR (<1.2) Sodium 129 L (137-145) mmol/L Potassium 3.0 L (3.5-5.1) mmol/L Chloride 80 L (98-107) mmol/L Carbon Dioxide (22-30) mmol/L BUN 2 L (7-17) mg/dL Glucose 118 H (74-99) mg/dL Plasma Lactic Acid Andrew 5.7 H* (0.7-2.0) mmol/L Calcium (8.4-10.2) mg/dL Magnesium 1.2 L (1.6-2.3) mg/dL Total Bilirubin 2.3 H (0.2-1.3) mg/dL AST 203 H (14-36) U/L ALT 70 H (9-52) U/L Alkaline Phosphatase 143 H (38-126) U/L Troponin I (0.000-0.034) ng/mL Triglycerides (<150) mg/dL Cholesterol (<200) mg/dL LDL Cholesterol, Calc (0-99) mg/dL HDL Cholesterol (40-60) mg/dL Amylase 306 H* (30-110) U/L Lipase 4098 H (23-300) U/L 03/14/19 03/14/19 03/14/19 Range/Units 00:55 02:12 06:06 WBC (3.8-10.6) k/uL RBC (3.80-5.40) m/uL Plt Count (150-450) k/uL Neutrophils # (1.3-7.7) k/uL Monocytes # (0-1.0) k/uL PT (9.0-12.0) sec INR (<1.2) Sodium (137-145) mmol/L Potassium (3.5-5.1) mmol/L Chloride (98-107) mmol/L Carbon Dioxide (22-30) mmol/L BUN (7-17) mg/dL Glucose (74-99) mg/dL Plasma Lactic Acid Andrew 4.9 H* (0.7-2.0) mmol/L Calcium (8.4-10.2) mg/dL Magnesium (1.6-2.3) mg/dL Total Bilirubin (0.2-1.3) mg/dL AST (14-36) U/L ALT (9-52) U/L Alkaline Phosphatase (38-126) U/L Troponin I 0.097 H* 0.099 H* (0.000-0.034) ng/mL Triglycerides (<150) mg/dL Cholesterol (<200) mg/dL LDL Cholesterol, Calc (0-99) mg/dL HDL Cholesterol (40-60) mg/dL Amylase (30-110) U/L Lipase (23-300) U/L 03/14/19 03/14/19 03/14/19 Range/Units 06:06 06:06 06:06 WBC (3.8-10.6) k/uL RBC 3.67 L (3.80-5.40) m/uL Plt Count (150-450) k/uL Neutrophils # (1.3-7.7) k/uL Monocytes # (0-1.0) k/uL PT 18.9 H (9.0-12.0) sec INR 1.9 H (<1.2) Sodium 127 L (137-145) mmol/L Potassium 2.8 L (3.5-5.1) mmol/L Chloride 83 L (98-107) mmol/L Carbon Dioxide 31 H (22-30) mmol/L BUN 4 L (7-17) mg/dL Glucose 100 H (74-99) mg/dL Plasma Lactic Acid Nadrew (0.7-2.0) mmol/L Calcium 8.0 L (8.4-10.2) mg/dL Magnesium (1.6-2.3) mg/dL Total Bilirubin 3.2 H (0.2-1.3) mg/dL AST 151 H (14-36) U/L ALT 55 H (9-52) U/L Alkaline Phosphatase (38-126) U/L Troponin I (0.000-0.034) ng/mL Triglycerides 261 H (<150) mg/dL Cholesterol 207 H (<200) mg/dL LDL Cholesterol, Calc 123 H (0-99) mg/dL HDL Cholesterol 32 L (40-60) mg/dL Amylase 211 H (30-110) U/L Lipase 3126 H (23-300) U/L 03/14/19 Range/Units 06:06 WBC (3.8-10.6) k/uL RBC (3.80-5.40) m/uL Plt Count (150-450) k/uL Neutrophils # (1.3-7.7) k/uL Monocytes # (0-1.0) k/uL PT (9.0-12.0) sec INR (<1.2) Sodium (137-145) mmol/L Potassium (3.5-5.1) mmol/L Chloride (98-107) mmol/L Carbon Dioxide (22-30) mmol/L BUN (7-17) mg/dL Glucose (74-99) mg/dL Plasma Lactic Acid Andrew 4.4 H* (0.7-2.0) mmol/L Calcium (8.4-10.2) mg/dL Magnesium (1.6-2.3) mg/dL Total Bilirubin (0.2-1.3) mg/dL AST (14-36) U/L ALT (9-52) U/L Alkaline Phosphatase (38-126) U/L Troponin I (0.000-0.034) ng/mL Triglycerides (<150) mg/dL Cholesterol (<200) mg/dL LDL Cholesterol, Calc (0-99) mg/dL HDL Cholesterol (40-60) mg/dL Amylase (30-110) U/L Lipase (23-300) U/L US - abdomen: report reviewed (Dr. Cruz) Assessment and Plan (1) Acute pancreatitis Narrative/Plan: 33-year-old female with an underlying history of alcohol abuse alcohol liver disease admitted with suicidal ideations drug overdose acute pancreatitis alcohol binge drinking. Current Visit: Yes Status: Acute Code(s): K85.90 - ACUTE PANCREATITIS WITHOUT NECROSIS OR INFECTION, UNSP SNOMED Code(s): 880602629 (2) Drug overdose Current Visit: Yes Status: Acute Code(s): T50.901A - POISONING BY UNSP DRUG/MEDS/BIOL SUBST, ACCIDENTAL, INIT SNOMED Code(s): 14539933 (3) Suicidal ideation Current Visit: Yes Status: Acute Code(s): R45.851 - SUICIDAL IDEATIONS SNOMED Code(s): 8701930 (4) ETOH abuse Current Visit: Yes Status: Acute Code(s): F10.10 - ALCOHOL ABUSE, UNCOMP LICATED SNOMED Code(s): 01779531 (5) Alcoholic hepatitis Current Visit: Yes Status: Acute Code(s): K70.10 - ALCOHOLIC HEPATITIS WITHOUT ASCITES SNOMED Code(s): 683386385 (6) Elevated troponin Current Visit: Yes Status: Acute Code(s): R74.8 - ABNORMAL LEVELS OF OTHER SERUM ENZYMES SNOMED Code(s): 080277824 (7) Alcohol intoxication Current Visit: Yes Status: Acute Code(s): F10.929 - ALCOHOL USE, UNSPECIFIED WITH INTOXICATION, UNSPECIFIED SNOMED Code(s): 39534480 (8) Alcoholic liver disease Narrative/Plan: Possible hepatic steatosis per abdominal imaging Current Visit: Yes Status: Acute Code(s): K70.9 - ALCOHOLIC LIVER DISEASE, UNSPECIFIED SNOMED Code(s): 68202525 (9) Warfarin-induced coagulopathy Current Visit: Yes Status: Acute Code(s): D68.32 - HEMORRHAGIC DISORD D/T EXTRINSIC CIRCULATING ANTICOAGULANTS; T45.515A - ADVERSE EFFECT OF ANTICOAGU LANTS, INITIAL ENCOUNTER SNOMED Code(s): 24970268 (10) Elevated lactic acid level Current Visit: Yes Status: Acute Code(s): R79.89 - OTHER SPECIFIED ABNORMAL FINDINGS OF BLOOD CHEMISTRY SNOMED Code(s): 5228154 Plan: Psychiatry consult. Protonix 40 mg daily. Nothing by mouth except ice chips. Daily monitoring of CBC CMP PT/INR pancreatic enzymes. Alcohol abstinence reinforced. Thank you for this kind referral and the opportunity to participate in the care of your patient. This consultation was discussed with Dr. Cruz. The impression and plan of care have been directed as dictated.
[2019-03-14] MEDS: SPIRONOLACTONE 25 MG TAB PO SCH (12:47)
[2019-03-14] MEDS: METOPROLOL SUCCINATE (ER) 100 MG TAB.ER.24H PO SCH (12:47)
[2019-03-14] MEDS: POTASSIUM CHLORIDE ER 20 MEQ TAB.ER PO SCH (12:47)
[2019-03-14] MEDS: 0.9% NACL WITH KCL 40 MEQ/L 1,000 ML IV SCH (13:25)
--- NOTE | 2019-03-14 15:20 | P.CN ---
Psychiatric Consult - . Consult date: 03/14/19 Consult:: 03/14/19 15:07 Identification: Patient is a 33-year-old female presented to the emergency room complaining of feeling depressed with suicidal ideation and taken an overdose of dyka-qha-uadeyhk sleeping pills and had been using alcohol. Reason for Consult: Overdose, suicidal ideation History of Present Illness: Patient's chart was reviewed and the patient was seen and interviewed in her room no family members were present. Patient reports that she had been feeling increasingly depressed after losing her job several days ago due to a decrease in business and therefore a decrease in the number of hours she was working. She states that she is also still coping with the breakup of a five-year relationship 1-1/2 years ago. She states that she took 20 gtaa-cch-dipsqgp sleeping tablets and then immediately made herself throw up that she regretted taking the medications and was afraid. She states that she did want to when she took the medication but got scared after she had done so. Patient states that for the last 3 days she has been on an alcohol binge drinking up to a pint a day states that prior to this she was drinking wine on and off but not in any excessive amount. Patient had been seen one year ago for a similar episode of an overdose on viiq-jxw-tgneteq sleeping pills as well as alcohol use and had been referred for outpatient counseling to [facility] counseling where she states she went for 3 weeks and stopped going because she did not like the counselor. Patient states she's been using Ativan 0.5 mg 2-3 times a day on a daily basis because of anxiety patient states that she uses the Ativan to mellow herself out when she is feeling an anxiety attack coming on where her chest feels heavy her palms are sweaty and feels that people are staring at her. She states during these times she feels that something bad will happen. Patient states that she uses it at night to help her sleep. Patient reports no other suicide attempts, she does not endorse any psychotic symptoms, no manic symptoms and no OCD symptoms. Patient states that she's been depressed since the breakup a year and a half ago with her partner of 5 years and states that she's been having increasing difficulty adjusting. She states that she is also had medical problems with hospitalizations for atrial fibrillation. 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 She states that she's been there for the last 9 months. Patient lives alone in her own home and is fearful that she will have to sell her house. She reports feeling hopeless, having crying spells and is overwhelmed with her situation. Past Psychiatric History: Patient has no prior inpatient psychiatric treatment, states she was at [facility] for 3 weeks last year and denies having been treated with any antidepressants but has been using Ativan recently 0.5 mg 2-3 times a day. 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 She states that she fractured her right arm 3 times as a child. Family History: Patient denies any family history of psychiatric problems alcohol or drug use or any completed suicides. Social History: Patient's parents are alive, her parents never her mother her stepfather when she was in the fourth grade that he had been in her life since she was an . She has 4 stepsisters from her father's prior relationship. 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 She most recently worked at a [employer] for the last 9 months. Patient has applied for Social Security disability and been denied. Patient has never and has no children and states that she continues to be upset about the breakup of a five-year relationship 1-1/2 years ago. Patient denies any history of sexual, physical or verbal abuse. Substance Use History: Patient states that recently she began using a pint a day for the last 3 days of alcohol. She states that she used alcohol socially in the past and denies any prior drug use history or current history. Legal History: Patient had a DUI in 2009 Mental status: Appearance/Attitude: Patient is lying in a hospital bed in no acute distress, she is tearful at times makes intermittent eye contact and was cooperative Behavior: Patient does not exhibit any psychomotor agitation or retardation Speech/Language: Patient's speech is spontaneous of normal volume and rhythm and she is coherent Thought Process: Patient is goal-directed there is no evidence of loose association or flight of ideas Thought Content: Patient denies any auditory or visual hallucinations and no delusions or paranoid ideation or elicited. Patient states that she's been feeling increasingly depressed especially since losing her current job, continues to have difficulties coping with the breakup of a relationship 1-1/2 years ago and states she's feeling overwhelmed and depressed. She states that she has been using alcohol for the last 3 days at least a pint a day and states that she is been having crying spells. Patient also reports having anxiety attacks that have recently required her to start using Ativan 2-3 times a day. Patient states that she's had no appetite recently and has been using the Ativan to assist with her sleep. Suicidal/Homicidal Ideation: Patient reports that she took an overdose of ttvn-hqn-znrynsa sleeping pills because she wanted to but then got afraid and made herself throw up she denies any current suicidal ideation and no current homicidal ideation Sensorium/Cognition: Patient is alert and oriented to person, place, and time and her recent and remote memory are grossly intact Mood/Affect: Patient's mood is depressed and tearful and her affect is appropriate to her mood Insight/Judgment: Patient's insight and judgment are fair Assessment: Patient presents having been using alcohol and took an overdose of fijo-rhw-xlvgkpc sleeping pills just similar to her presentation a year ago when she took an overdose of sleeping pills, at that time the patient was referred for outpatient counseling and she only went for 3 weeks and then stopped because she did not like the counselor. Patient states that she continues to cope with the breakup of a five-year relationship 1-1/2 years ago. She states that she recently lost her job, has not been approved for Social Security disability and is feeling overwhelmed, depressed and hasn't had no appetite and has not been sleeping unless she uses Ativan. She also endorses a history of anxiety attacks which she states she's been using Ativan 2-3 times a day for the last several months. Patient states that she wanted to but then got scared after she took sleeping pills and made herself throw up at home. Patient does not endorse a history of matthew, psychosis or OCD symptoms. Diagnosis: Major depressive episode, recurrent, moderate severity Plan: Patient has attempted suicide 2 times in the last year, did not follow-up with the referral for outpatient counseling after her release from the hospital year ago and now reports feeling increasingly depressed, overwhelmed with crying spells and having thoughts that she wanted to . Patient is also reporting anxiety attacks and has been using Ativan 0.5 mg 2-3 times a day for the last several months. Patient states that she is also been using a pint of alcohol for the last 3 days to cope with her feelings. I would recommend continuing the sitter for suicide precautions, and I discussed with the patient that an inpatient admission to stabilize her mood and place her on appropriate medication would be a good option, at this time I will not start any antidepressant medication. I spoke with social work regarding the patient's need for inpatient psychiatric care. Once the patient is medically stable, please contact social work to arrange for inpatient psychiatric admission. There are any further questions or concerns please don't hesitate to contact me 03/14/19 15:14
[2019-03-14] MEDS: HYDROmorphone 1 MG/ML 1 ML SYRINGE IVP PRN ×2 (16:03→22:17)
[2019-03-14 16:52] LABS: ALT 53 U/L (9-52); AST 177 U/L (14-36); African American GFR (CKD) >90 (>60 ml/min/1.73 sqM); Albumin 3.2 g/dL (3.5-5.0); Alkaline Phosphatase 118 U/L (38-126); Anion Gap 8 mmol/L; Blood Urea Nitrogen 4 mg/dL (7-17); Calcium 8.2 mg/dL (8.4-10.2); Carbon Dioxide 29 mmol/L (22-30); Chloride 95 mmol/L (98-107); Glucose 80 mg/dL (74-99); Magnesium 2.2 mg/dL (1.6-2.3); Potassium 4.1 mmol/L (3.5-5.1); Sodium 132 mmol/L (137-145); Total Bilirubin 4.6 mg/dL (0.2-1.3); Total Protein 5.7 g/dL (6.3-8.2)
[2019-03-14] MEDS: WARFARIN 1 MG TAB PO SCH (17:48)
[2019-03-14] MEDS: IOPAMIDOL-300 CONTRAST 30 ML VIAL (ORAL USE) PO PRN ×2 (17:59→19:00)
--- NOTE | 2019-03-14 18:31 | HP ---
HISTORY AND PHYSICAL DATE OF SERVICE: 03/14/2019 CHIEF COMPLAINT: Depression, suicidal thoughts, abdominal discomfort, not eating for the last 4 days. HISTORY OF PRESENT ILLNESS: This 33-year-old woman with a past medical history of multiple medical issues including atrial fibrillation, history of transposition of great arteries as an , history of EtOH abuse, alcohol withdrawals hypomagnesemia, ESBL E coli UTI, being followed by Dr. Wilson in the outpatient setting, not feeling well over the past several days. Patient was apparently not able to eat because of the diminished appetite according to the patient. The patient also had a history of significant alcohol intake a few days ago according to her. The patient apparently then subsequently tried to overdose with [employer] ucjx-lsd-wylogkf sleeping pills and about 21 of those pills and the patient felt nauseous and patient came to [facility] and was admitted for further evaluation and treatment. At the time of admission, patient had multiple abnormalities and elevated plasma lactic acid and elevated triglycerides and amylase, lipase at 211 and 3126, indicating acute pancreatitis. The patient had abdominal ultrasound which showed no gallstones. Hepatocellular disease suspected. Patient admitted to the hospital for further evaluation and treatment. Currently, the patient complaining of severe abdominal pain and the patient is also noted to have paroxysmal atrial fibrillation. The patient is anticoagulated on Coumadin at this time. The patient also history of nonischemic cardiomyopathy. The patient admitted to the hospital for further evaluation and treatment and being monitored closely in the telemetry unit. PAST MEDICAL HISTORY: History of atrial fibrillation, history of CHF, history of transposition of great arteries surgery, history EtOH abuse, alcohol withdrawal, hypomagnesemia, ESBL. MEDICATIONS: Prior to admission include home medications: 1. Coumadin 1 mg q.h.s. 2. Aldactone 25 mg p.o. daily. 3. K-Dur 60 mg p.o. daily. 4. Toprol-XL 100 mg p.o. daily. 5. Ativan 0.5 mg p.o. b.i.d. 6. Lasix 40 mg p.o. b.i.d. 7. Digoxin 0.125 mg p.o. daily. ALLERGIES: None. FAMILY HISTORY: No history of heart disease or strokes in the family. SOCIAL HISTORY: History of smoking. History of alcohol intake as mentioned. REVIEW OF SYSTEMS: ENT: No diminished vision. No diminished hearing. CARDIOVASCULAR System: No angina. Otherwise as mentioned earlier. RESPIRATIONS: No cough. No hemoptysis. GI: As mentioned earlier. no dysuria. CENTRAL NERVOUS SYSTEM: No numbness or weakness. ALLERGY/IMMUNOLOGY: No asthma or hayfever. MUSCULOSKELETAL: As mentioned earlier. HEMATOLOGY/ONCOLOGY: No history of anemia. ENDOCRINE: No diabetes mellitus or hypothyroidism. CONSULTATION: As mentioned earlier. DERMATOLOGY: Negative. RHEUMATOLOGY: Negative. PSYCHIATRY: As mentioned earlier. PHYSICAL EXAMINATION: Alert and oriented x3. Pulse is 67. Blood pressure 110/66, respirations 16, temperature 97.8, pulse ox 96% on room air. HEENT: Conjunctivae normal. Oral mucosa moist. NECK is no jugular venous distention. No carotid bruit. No lymph node enlargement. CHEST: Status post cardiac surgery which is healed. History of coronary artery disease. Cardiovascular system: Irregular tachycardic. RESPIRATORY: Breath sounds diminished in the bases. ABDOMEN: Soft. Mild diffuse discomfort. especially in the epigastric area. No guarding. No rigidity. LEGS: No edema. No swelling. NERVOUS SYSTEM: Higher functions as mentioned earlier, moves all 4 limbs. No focal motor or sensory deficit. LYMPHATICS: No lymph nodes palpable in the neck, axillae or groin. JOINTS: No active deforming arthropathy. LABS: At this time shows WBC 19.1, hemoglobin 11.7, INR 1.9, sodium 127, potassium 2.8, lactic acid 4.4 and magnesium is 2.8. Troponin 0.099. Triglycerides 261, cholesterol 207. Amylase 211, lipase is 3126. ASSESSMENT: 1. Paroxysmal atrial fibrillation with fast ventricular rate. 2. Abdominal pain with possible acute severe pancreatitis. 3. Possible acute gastritis. 4. Severe hypokalemia. 5. Hyponatremia. 6. Diminished p.o. intake and dehydration, present on admission. 7. Elevated lactic acid, multifactorial. 8. Increased bilirubin, AST, ALT, possibly alcoholic hepatitis. 9. Hyperlipidemia. 10.History of nicotine dependence. 11.History of overdose and suicidal ideations. 12.History of ESBL. 13.History of hypomagnesemia. 14.History of transposition of great artery surgery. 15.History of anxiety. 16.Remote history of nicotine dependence. 17.History of congestive heart failure with nonischemic cardiomyopathy. Ejection fraction improved to 50 to 60% on the most recent 2D echo. RECOMMENDATIONS AND DISCUSSION: I recommend to continue current medications, management and symptomatic treatments. Otherwise, at this time, keep the patient n.p.o. except medications with probably some ice chips. We will monitor the amylase and lipase closely. Cardiology input appreciated. The lactic acid is still elevated. I would recommend cautious IV hydration. The white count is normal. The patient is not running a fever. I think we will hold off antibiotics for now. Otherwise, continue the Coumadin. Continue with CIWA protocol. Guarded prognosis because of multiple complex medical conditions. Discussed with the patient who understands and agrees. A copy of dictation being forwarded to Dr. Wilson who is the primary physician. The patient is under one-to-one suicide watch at this time. We will await psych input also. MMESTELAL / IJN: [id number] / MTDMary
--- NOTE | 2019-03-14 20:00 | CT ---
EXAMINATION TYPE: CT abdomen pelvis wo con DATE OF EXAM: 03/14/2019 COMPARISON: None HISTORY: pancreatitis CT DLP: 420.7 mGycm Automated exposure control for dose reduction was used. TECHNIQUE: Helical acquisition of images was performed from the lung bases through the pelvis. FINDINGS: There is minimal reticular density in the medial right lower lobe. There is no pleural effusion. Ther e is no pericardial effusion. Liver has normal size and contour. Spleen appears normal. There is no pancreatic mass. Stomach appear s normal. There is no adrenal mass. Kidneys have normal size and contour. There is no hydronephrosis. There is no retroperitoneal adenopathy. Bladder distends smoothly. There is no inguinal hernia. There is no fr ee fluid in the pelvis. There is fat stranding in the right upper quadrant with fluid around the hepatic flexure of the colon . There is no evidence of free air. There is no free fluid in the pelvis. There is tiny amount of flu id in the paracolic gutter. There is no sign of a thickened appendix. Lumbar vertebra have normal spa cing and alignment. Bony pelvis is intact. I see no bony destructive process. Uterus is anteverted. There is no evidence of a pelvic mass. IMPRESSION: THERE ARE INFLAMMATORY CHANGES IN THE RIGHT UPPER QUADRANT AROUND THE ASCENDING COLON WITH FLUID IN T HE PARACOLIC GUTTER. THIS COULD RELATE TO FOCAL COLITIS. I DO NOT SEE DEFINITE SIGN OF PANCREATITIS. THERE IS SOME FATTY INFILTRATION OF THE LIVER. Right colon does not show any significant wall thickening however. The possibility of mild pancreatit is with inflammatory changes remote from the pancreas should be also considered.
[2019-03-15] MEDS: LORazepam 2 MG/ML INJ IV PRN ×3 (00:02→09:23)
[2019-03-15] MEDS: 0.9% NACL WITH KCL 40 MEQ/L 1,000 ML IV SCH ×3 (01:20→16:45)
[2019-03-15] MEDS: THIAMINE 100 MG TAB PO SCH ×2 (06:35→09:22)
[2019-03-15 07:02] LABS: Basophils # (A) 0.1 k/uL (0-0.2); Basophils % (A) 1 %; Eosinophils # (A) 0.2 k/uL (0-0.7); Eosinophils % (A) 3 %; HCT 31.5 % (34.0-46.0); HGB 10.2 gm/dL (11.4-16.0); Hypochromasia Slight; Lymphocytes # (A) 0.9 k/uL (1.0-4.8); Lymphocytes % (A) 20 %; MCH 31.7 pg (25.0-35.0); MCHC 32.2 g/dL (31.0-37.0); MCV 98.4 fL (80.0-100.0); Mean Platelet Volume 8.7; Monocytes # (A) 0.4 k/uL (0-1.0); Monocytes % (A) 8 %; Neutrophils % (A) 65 %; Platelet Count 214 k/uL (150-450); RBC 3.21 m/uL (3.80-5.40); RDW 14.4 % (11.5-15.5); WBC 4.7 k/uL (3.8-10.6)
[2019-03-15 07:12] LABS: INR 1.7 (<1.2); Prothrombin Time 16.7 sec (9.0-12.0)
[2019-03-15 07:16] LABS: ALT 46 U/L (9-52); AST 128 U/L (14-36); African American GFR (CKD) >90 (>60 ml/min/1.73 sqM); Albumin 3.1 g/dL (3.5-5.0); Alkaline Phosphatase 99 U/L (38-126); Amylase 88 U/L (30-110); Anion Gap 4 mmol/L; Blood Urea Nitrogen 6 mg/dL (7-17); Calcium 8.4 mg/dL (8.4-10.2); Carbon Dioxide 29 mmol/L (22-30); Chloride 101 mmol/L (98-107); Glucose 80 mg/dL (74-99); Lipase 1256 U/L (23-300); Magnesium 2.3 mg/dL (1.6-2.3); Potassium 5.2 mmol/L (3.5-5.1); Sodium 134 mmol/L (137-145); Total Protein 5.7 g/dL (6.3-8.2)
[2019-03-15] MEDS: SPIRONOLACTONE 25 MG TAB PO SCH (09:22)
[2019-03-15] MEDS: MULTIVITAMINS, THERA 1 EACH TAB PO SCH (09:22)
[2019-03-15] MEDS: PANTOPRAZOLE 40 MG/10 ML VIAL IV SCH (09:22)
[2019-03-15] MEDS: METOPROLOL SUCCINATE (ER) 100 MG TAB.ER.24H PO SCH (09:22)
[2019-03-15] MEDS: POTASSIUM CHLORIDE ER 20 MEQ TAB.ER PO SCH (09:23)
--- NOTE | 2019-03-15 11:15 | P.PN ---
Subjective Progress Note Date: 03/15/19 Principal diagnosis: Drug overdose pancreatitis alcohol liver disease EtOH abuse Total bilirubin 4.0. AST 128. ALT 46. AP 99. Lipase improve 1256. INR 1.7. Hemoglobin 10.2. White count 4.7. Platelet 214. CT abdomen possibility of mild pancreatitis. Fatty infiltration of liver. Denies abdominal pain hungry requesting diet. Objective - Vital Signs Vital signs: Vital Signs Temp 97.8 F 03/15/19 04:10 Pulse 87 03/15/19 04:10 Resp 16 03/15/19 04:10 BP 107/71 03/15/19 04:10 Pulse Ox 93 L 03/14/19 23:45 Intake & Output 03/14/19 03/15/19 03/15/19 18:59 06:59 18:59 Intake Total 1200 Balance 1200 Weight 66.6 kg Intake: Intake, IV Titration 1200 Amount Sodium Chloride 0.9% 1, 1200 000 ml @ 150 mls/hr IV . Q6H40M [facility] Rx#:[id number] Other: Voiding Method Toilet Toilet # Voids 3 1 - Exam General appearance: The patient is alert, oriented, in no acute distress. HET: Head is normocephalic and atraumatic. Pupils are equal and reactive. Oropharynx is clear without lesions. Neck: Supple without lymphadenopathy. Trachea midline. Heart: S1 S2. Regular rate and rhythm. Lungs: No crackles or wheezes are heard. Abdomen: Soft, nontender, nondistended with bowel sounds. No peritoneal signs. No palpable organomegaly or masses. Extremities: Normal skin color and turgor. No cyanosis, rash, ulceration, clubbing, or edema. Radial and pedal pulses are 2/4 bilaterally. Neurological: No focal deficits. Strength and sensation are grossly intact. - Labs CBC & Chem 7: 03/16/19 06:35 03/16/19 06:35 Labs: Abnormal Lab Results - Last 24 Hours (Table) 03/14/19 03/14/19 03/15/19 Range/Units 11:02 16:07 06:37 RBC (3.80-5.40) m/uL Hgb (11.4-16.0) gm/dL Hct (34.0-46.0) % Lymphocytes # (1.0-4.8) k/uL PT (9.0-12.0) sec INR (<1.2) Sodium 132 L 134 L (137-145) mmol/L Potassium 5.2 H (3.5-5.1) mmol/L Chloride 95 L (98-107) mmol/L BUN 4 L 6 L (7-17) mg/dL Plasma Lactic Acid Andrew 4.1 H* (0.7-2.0) mmol/L Calcium 8.2 L (8.4-10.2) mg/dL Total Bilirubin 4.6 H 4.0 H (0.2-1.3) mg/dL AST 177 H 128 H (14-36) U/L ALT 53 H (9-52) U/L Total Protein 5.7 L 5.7 L (6.3-8.2) g/dL Albumin 3.2 L 3.1 L (3.5-5.0) g/dL Lipase 1256 H (23-300) U/L 03/15/19 03/15/19 Range/Units 06:37 06:37 RBC 3.21 L (3.80-5.40) m/uL Hgb 10.2 L (11.4-16.0) gm/dL Hct 31.5 L (34.0-46.0) % Lymphocytes # 0.9 L (1.0-4.8) k/uL PT 16.7 H (9.0-12.0) sec INR 1.7 H (<1.2) Sodium (137-145) mmol/L Potassium (3.5-5.1) mmol/L Chloride (98-107) mmol/L BUN (7-17) mg/dL Plasma Lactic Acid Andrew (0.7-2.0) mmol/L Calcium (8.4-10.2) mg/dL Total Bilirubin (0.2-1.3) mg/dL AST (14-36) U/L ALT (9-52) U/L Total Protein (6.3-8.2) g/dL Albumin (3.5-5.0) g/dL Lipase (23-300) U/L Microbiology - Last 24 Hours (Table) 03/14/19 21:32 Urine Culture - Preliminary Urine,Clean Catch Assessment and Plan (1) Acute pancreatitis Narrative/Plan: 33-year-old female with an underlying history of alcohol abuse alcohol liver disease admitted with suicidal ideations drug overdose acute pancreatitis alcohol binge drinking. Current Visit: Yes Status: Acute Code(s): K85.90 - ACUTE PANCREATITIS WITHOUT NECROSIS OR INFECTION, UNSP SNOMED Code(s): 577808321 (2) Drug overdose Current Visit: Yes Status: Acute Code(s): T50.901A - POISONING BY UNSP DRUG/MEDS/BIOL SUBST, ACCIDENTAL, INIT SNOMED Code(s): 01023503 (3) Suicidal ideation Current Visit: Yes Status: Acute Code(s): R45.851 - SUICIDAL IDEATIONS SNOMED Code(s): 8490531 (4) ETOH abuse Current Visit: Yes Status: Acute Code(s): F10.10 - ALCOHOL ABUSE, UNCOMPLICATED SNOMED Code(s): 52930552 (5) Alcoholic hepatitis Current Visit: Yes Status: Acute Code(s): K70.10 - ALCOHOLIC HEPATITIS WITHOUT ASCITES SNOMED Code(s): 530886638 (6) Elevated troponin Current Visit: Yes Status: Acute Code(s): R74.8 - ABNORMAL LEVELS OF OTHER SERUM ENZYMES SNOMED Code(s): 998871083 (7) Alcohol intoxication Current Visit: Yes Status: Acute Code(s): F10.929 - ALCOHOL USE, UNSPECIFIED WITH INTOXICATION, UNSPECIFIED SNOMED Code(s): 03166820 (8) Alcoholic liver disease Narrative/Plan: Possible hepatic steatosis per abdominal imaging Current Visit: Yes Status: Acute Code(s): K70.9 - ALCOHOLIC LIVER DISEASE, UNSPECIFIED SNOMED Code(s): 53148244 (9) Warfarin-induced coagulopathy Current Visit: Yes Status: Acute Code(s): D68.32 - HEMORRHAGIC DISORD D/T EXTRINSIC CIRCULATING ANTICOAGULANTS; T45.515A - ADVERSE EFFECT OF ANTICOAGULANTS, INITIAL ENCOUNTER SNOMED Code(s): 31346375 (10) Elevated lactic acid level Current Visit: Yes Status: Acute Code(s): R79.89 - OTHER SPECIFIED ABNORMAL FINDINGS OF BLOOD CHEMISTRY SNOMED Code(s): 2973486 Plan: Clear liquids advance as tolerated. Protonix 40 mg daily. Daily monitoring of CBC CMP PT/INR pancreatic enzymes. Alcohol abstinence reinforced. Assessment and plan a care discussed with Dr. Cruz
[2019-03-15] MEDS: HYDROmorphone 1 MG/ML 1 ML SYRINGE IVP PRN (12:17)
[2019-03-15] MEDS: WARFARIN 1 MG TAB PO SCH (16:46)
--- NOTE | 2019-03-15 17:22 | PN ---
PROGRESS NOTE DATE OF SERVICE: 03/15/2019. This 33-year-old woman who was admitted with paroxysmal atrial fibrillation also had abdominal pain, acute pancreatitis. Patient being closely monitored. Abdomen and pelvis CAT scan showed some fluid in the paracolic gutter, possibly indicative of pancreatitis. No chest pain. No palpitations. No fever. PHYSICAL EXAM: Alert and oriented x3. Pulse 83, blood pressure 97/61, respiration 16, temperature 98.9, pulse ox 98% on room air. HEENT: Conjunctivae normal. NECK: No jugular venous distention. CARDIOVASCULAR: S1, S2 muffled. RESPIRATORY: Breath sounds diminished in the bases. Few scattered rhonchi and crackles. ABDOMEN is soft. Mild diffuse discomfort. Nontender. No mass palpable. LEGS: No edema. No swelling. NERVOUS SYSTEM: No focal deficits. LABS: The total bilirubin is 4, lipase is 1256, and INR is 1.7. ASSESSMENT: 1. Paroxysmal atrial fibrillation with fast ventricular rate. 2. Abdominal pain with possible acute severe pancreatitis. 3. Possible acute gastritis. 4. Severe hypokalemia, improved. 5. Hyponatremia. 6. Diminished p.o. intake with dehydration, present on admission. 7. Elevated lactic acid, multifactorial. 8. Increased bilirubin, AST/ALT possibly alcoholic hepatitis. 9. Hyperlipidemia. 10.History of nicotine dependence. 11.History of overdose and suicidal ideations. 12.History of ESBL. 13.History of hypomagnesemia. 14.History of transposition of great artery surgery as an . 15.History of anxiety. 16.Remote history of nicotine dependence. 17.History of congestive heart failure with a nonischemic cardiomyopathy, ejection fraction improved to 50 to 60% on the most recent 2D echo. RECOMMENDATIONS AND DISCUSSION: Recommend to continue current medications. Continue to monitor. Symptomatic treatment. Repeat labs. Advance diet. Increase ambulation. Once the patient is stable and cleared by Cardiology and Gastroenterology, inpatient psych for further evaluation and treatment. MMODL / IJN: [id number] /
[2019-03-15] MEDS: LORazepam 0.5 MG TAB PO SCH (21:32)
[2019-03-16] MEDS: HYDROmorphone 1 MG/ML 1 ML SYRINGE IVP PRN ×4 (01:44→20:14)
[2019-03-16] MEDS: THIAMINE 100 MG TAB PO SCH ×2 (06:05→15:48)
[2019-03-16 07:06] LABS: INR 1.8 (<1.2); Prothrombin Time 17.9 sec (9.0-12.0)
[2019-03-16 07:07] LABS: Basophils # (A) 0.1 k/uL (0-0.2); Basophils % (A) 1 %; Eosinophils # (A) 0.2 k/uL (0-0.7); Eosinophils % (A) 3 %; HCT 29.6 % (34.0-46.0); HGB 9.2 gm/dL (11.4-16.0); Hypochromasia Slight; Lymphocytes # (A) 1.5 k/uL (1.0-4.8); Lymphocytes % (A) 24 %; MCH 30.8 pg (25.0-35.0); MCHC 31.1 g/dL (31.0-37.0); MCV 99.3 fL (80.0-100.0); Mean Platelet Volume 8.2; Monocytes # (A) 0.5 k/uL (0-1.0); Monocytes % (A) 7 %; Neutrophils # (A) 3.9 k/uL (1.3-7.7); Neutrophils % (A) 61 %; Platelet Count 232 k/uL (150-450); RBC 2.98 m/uL (3.80-5.40); RDW 14.7 % (11.5-15.5); WBC 6.3 k/uL (3.8-10.6)
[2019-03-16 07:29] LABS: ALT 45 U/L (9-52); AST 115 U/L (14-36); African American GFR (CKD) >90 (>60 ml/min/1.73 sqM); Albumin 2.9 g/dL (3.5-5.0); Alkaline Phosphatase 99 U/L (38-126); Amylase 90 U/L (30-110); Anion Gap 8 mmol/L; Blood Urea Nitrogen 4 mg/dL (7-17); Calcium 8.8 mg/dL (8.4-10.2); Carbon Dioxide 23 mmol/L (22-30); Chloride 104 mmol/L (98-107); Glucose 95 mg/dL (74-99); Lipase 1581 U/L (23-300); Potassium 4.2 mmol/L (3.5-5.1); Sodium 135 mmol/L (137-145); Total Bilirubin 3.3 mg/dL (0.2-1.3); Total Protein 5.4 g/dL (6.3-8.2)
[2019-03-16] MEDS: POTASSIUM CHLORIDE ER 20 MEQ TAB.ER PO SCH (07:58)
[2019-03-16] MEDS: LORazepam 0.5 MG TAB PO SCH ×2 (07:58→20:13)
[2019-03-16] MEDS: MULTIVITAMINS, THERA 1 EACH TAB PO SCH (07:58)
[2019-03-16] MEDS: METOPROLOL SUCCINATE (ER) 100 MG TAB.ER.24H PO SCH (07:58)
[2019-03-16] MEDS: SPIRONOLACTONE 25 MG TAB PO SCH (07:59)
[2019-03-16] MEDS: PANTOPRAZOLE 40 MG/10 ML VIAL IV SCH (07:59)
--- NOTE | 2019-03-16 10:57 | P.DS ---
Providers Date of admission: 03/13/19 21:14 Attending physician: Becky Doll Consults: 03/13/19 21:15 Consult Physician Routine Consulting Provider: Devi Dowell Consult Reason/Comments: overdose, suicidal Do you want consulting provider notified?: Yes Consult Physician Urgent Consulting Provider: Richard Cruz Consult Reason/Comments: pancreatitis Do you want consulting provider notified?: Yes Consult Physician Urgent Consulting Provider: Angela Quijano Consult Reason/Comments: a fib, cardiac eval Do you want consulting provider notified?: Yes Primary care physician: Rodney [facility] Course: Final diagnoses Paroxysmal atrial fibrillation with fast ventricular rate Abdominal pain and possibly acute severe pancreatitis Possibly acute gastritis severe hypokalemia improved Hyponatremia Diminished by mouth with the dehydration present on admission Elevated lactic acid multifactorial Increased bilirubin Increased AST ALT Alcoholic hepatitis Hyperlipidemia History of nicotine dependence History overdose and suicidal ideation HistorESBL Off hypomagnesemia History of transposition of great arteries surgery as an infant History of anxiety History of CHF with a nonischemic cardio myopathy ejection fraction 50-60% with most recent 2-D echo Discharge disposition This patient be discharged in a stable condition with guarded prognosis to inpatient psych floor Superselective This 33-year-old woman with a past medical history multiple medical problems was admitted with tatrial fibrillation with fast ventricular ratell as overdose. Patient also had coagulopathy and as well as features of acute severe penetrates. Patient treated symptoalong with multiple consultantss. Patient improved significantly. Patient be transferred to inpatient psych floor in a stable condition with guarded prognosis. On exam the issues vitals are normal cardio system normal respirator set. on examination abdomen soft nontender nervous system no focal deficit defici please see medication reconciliation sheet for list of medications. Patient Condition at Discharge: Serious Plan - Discharge Summary New Discharge Prescriptions: New Multivitamins, Thera [Multivitamin (formulary)] 1 each PO DAILY tab Thiamine [Vitamin B-1] 100 mg PO BID-W/MEALS tab Continue Furosemide [Lasix] 40 mg PO BID Spironolactone [Aldactone] 25 mg PO DAILY Digoxin [Digitek] 125 mcg PO DAILY Metoprolol Succinate (ER) [Toprol XL] 100 mg PO DAILY LORazepam [Ativan] 0.5 mg PO BID Potassium Chloride ER [K-Dur 20] 60 meq PO DAILY Warfarin [Coumadin] 1 mg PO HS@1800 Discharge Medication List Furosemide [Lasix] 40 mg PO BID 02/25/17 [History] Digoxin [Digitek] 125 mcg PO DAILY 12/19/17 [History] Spironolactone [Aldactone] 25 mg PO DAILY 12/19/17 [History] Metoprolol Succinate (ER) [Toprol XL] 100 mg PO DAILY 03/19/18 [History] LORazepam [Ativan] 0.5 mg PO BID 01/05/19 [History] Potassium Chloride ER [K-Dur 20] 60 meq PO DAILY 01/05/19 [History] Warfarin [Coumadin] 1 mg PO HS@1800 03/13/19 [History] Multivitamins, Thera [Multivitamin (formulary)] 1 each PO DAILY tab 03/16/19 [Rx] Thiamine [Vitamin B-1] 100 mg PO BID-W/MEALS tab 03/16/19 [Rx] Follow up Appointment(s)/Referral(s): [facility] [Provider Group] - 1 Week Rodney Wilson MD [Primary Care Provider] - 1-2 days Patient Instructions/Handouts: A-fib (Atrial Fibrillation) (DC), Depression (DC), Abuse of Alcohol (DC), Suicide Prevention (DC) Activity/Diet/Wound Care/Special Instructions: In pt psych
--- NOTE | 2019-03-16 15:00 | P.PN ---
Subjective Progress Note Date: 03/16/19 Principal diagnosis: Drug overdose pancreatitis alcohol liver disease EtOH abuse 33-year-old female with a history of underlying alcohol liver disease admitted with suicidal ideation attempted drug overdose alcohol binge. LFTs improved today total bilirubin 3.3. AST 115. ALT 45. AP 99. Lipase 1581. INR 1.8. Hemoglobin 9.2.. White count 6.3. Platelet 214. CT abdomen possibility of mild pancreatitis. Fatty infiltration of liver. Denies abdominal pain tolerating advance diet. Consider at bedside. Objective - Vital Signs Vital signs: Vital Signs Temp 98.3 F 03/16/19 07:57 Pulse 85 03/16/19 07:57 Resp 18 03/16/19 07:57 BP 105/55 03/16/19 07:57 Pulse Ox 94 L 03/16/19 07:57 Intake & Output 03/15/19 03/16/19 03/16/19 18:59 06:59 18:59 Intake Total 240 118 Balance 240 118 Weight 67.9 kg Intake: Oral 240 118 Other: Voiding Method Toilet Toilet # Voids 1 1 - Exam General appearance: The patient is alert, oriented, in no acute distress. HET: Head is normocephalic and atraumatic. Pupils are equal and reactive. Oropharynx is clear without lesions. Neck: Supple without lymphadenopathy. Trachea midline. Heart: S1 S2. Regular rate and rhythm. Lungs: No crackles or wheezes are heard. Abdomen: Soft, nontender, nondistended with bowel sounds. No peritoneal signs. No palpable organomegaly or masses. Extremities: Normal skin color and turgor. No cyanosis, rash, ulceration, clubbing, or edema. Radial and pedal pulses are 2/4 bilaterally. Neurological: No focal deficits. Strength and sensation are grossly intact. - Labs CBC & Chem 7: 03/16/19 06:35 03/16/19 06:35 Labs: Abnormal Lab Results - Last 24 Hours (Table) 03/16/19 03/16/19 03/16/19 Range/Units 06:35 06:35 06:35 RBC 2.98 L (3.80-5.40) m/uL Hgb 9.2 L (11.4-16.0) gm/dL Hct 29.6 L (34.0-46.0) % PT 17.9 H (9.0-12.0) sec INR 1.8 H (<1.2) Sodium 135 L (137-145) mmol/L BUN 4 L (7-17) mg/dL Total Bilirubin 3.3 H (0.2-1.3) mg/dL AST 115 H (14-36) U/L Total Protein 5.4 L (6.3-8.2) g/dL Albumin 2.9 L (3.5-5.0) g/dL Lipase 1581 H (23-300) U/L Microbiology - Last 24 Hours (Table) 03/14/19 21:32 Urine Culture - Final Urine,Clean Catch 03/14/19 17:26 Blood Culture - Preliminary Blood No Growth after 24 hours Assessment and Plan (1) Acute pancreatitis Narrative/Plan: 33-year-old female with an underlying history of alcohol abuse alcohol liver disease admitted with suicidal ideations drug overdose acute pancreatitis alcohol binge drinking. Current Visit: Yes Status: Acute Code(s): K85.90 - ACUTE PANCREATITIS WITHOUT NECROSIS OR INFECTION, UNSP SNOMED Code(s): 961242473 (2) Drug overdose Current Visit: Yes Status: Acute Code(s): T50.901A - POISONING BY UNSP DRUG/MEDS/BIOL SUBST, ACCIDENTAL, INIT SNOMED Code(s): 29028564 (3) Suicidal ideation Current Visit: Yes Status: Acute Code(s): R45.851 - SUICIDAL IDEATIONS SNOMED Code(s): 6793513 (4) ETOH abuse Current Visit: Yes Status: Acute Code(s): F10.10 - ALCOHOL ABUSE, UNCOMPLICATED SNOMED Code(s): 87171467 (5) Alcoholic hepatitis Current Visit: Yes Status: Acute Code(s): K70.10 - ALCOHOLIC HEPATITIS WITHOUT ASCITES SNOMED Code(s): 794928584 (6) Elevated troponin Current Visit: Yes Status: Acute Code(s): R74.8 - ABNORMAL LEVELS OF OTHER SERUM ENZYMES SNOMED Code(s): 883540880 (7) Alcohol intoxication Current Visit: Yes Status: Acute Code(s): F10.929 - ALCOHOL USE, UNSPECIFIED WITH INTOXICATION, UNSPECIFIED SNOMED Code(s): 08957188 (8) Alcoholic liver disease Narrative/Plan: Possible hepatic steatosis per abdominal imaging Current Visit: Yes Status: Acute Code(s): K70.9 - ALCOHOLIC LIVER DISEASE, UNSPECIFIED SNOMED Code(s): 44905241 (9) Warfarin-induced coagulopathy Current Visit: Yes Status: Acute Code(s): D68.32 - HEMORRHAGIC DISORD D/T EXTRINSIC CIRCULATING ANTICOAGULANTS; T45.515A - ADVERSE EFFECT OF ANTICOAGULANTS, INITIAL ENCOUNTER SNOMED Code(s): 38231308 (10) Elevated lactic acid level Current Visit: Yes Status: Acute Code(s): R79.89 - OTHER SPECIFIED ABNORMAL FINDINGS OF BLOOD CHEMISTRY SNOMED Code(s): 0773551 Plan: Regular diet. Patient refuses inpatient psychiatry transfer. Sitter at bedside. Daily monitoring of CBC CMP PT/INR pancreatic enzymes. Alcohol abstinence reinforced. Assessment and plan a care discussed with Dr. Cruz
[2019-03-16] MEDS: WARFARIN 1 MG TAB PO SCH (15:48)
[2019-03-17] MEDS: HYDROmorphone 1 MG/ML 1 ML SYRINGE IVP PRN ×2 (00:13→04:45)
[2019-03-17 07:51] LABS: Basophils # (A) 0.1 k/uL (0-0.2); Basophils % (A) 1 %; Eosinophils # (A) 0.2 k/uL (0-0.7); Eosinophils % (A) 2 %; HGB 9.3 gm/dL (11.4-16.0); Hypochromasia Slight; Lymphocytes # (A) 1.3 k/uL (1.0-4.8); Lymphocytes % (A) 21 %; MCH 32.2 pg (25.0-35.0); MCHC 32.1 g/dL (31.0-37.0); Macrocytosis Slight; Monocytes # (A) 0.4 k/uL (0-1.0); Monocytes % (A) 7 %; Neutrophils # (A) 4.2 k/uL (1.3-7.7); Neutrophils % (A) 66 %; Platelet Count 286 k/uL (150-450); RDW 14.9 % (11.5-15.5); WBC 6.4 k/uL (3.8-10.6)
[2019-03-17 07:53] LABS: INR 1.6 (<1.2); Prothrombin Time 16.4 sec (9.0-12.0)
[2019-03-17 08:09] LABS: ALT 46 U/L (9-52); AST 98 U/L (14-36); African American GFR (CKD) >90 (>60 ml/min/1.73 sqM); Albumin 3.1 g/dL (3.5-5.0); Alkaline Phosphatase 111 U/L (38-126); Amylase 120 U/L (30-110); Anion Gap 5 mmol/L; Blood Urea Nitrogen 3 mg/dL (7-17); Calcium 9.2 mg/dL (8.4-10.2); Carbon Dioxide 26 mmol/L (22-30); Chloride 104 mmol/L (98-107); Glucose 87 mg/dL (74-99); Lipase 1573 U/L (23-300); Potassium 4.9 mmol/L (3.5-5.1); Sodium 135 mmol/L (137-145); Total Bilirubin 3.7 mg/dL (0.2-1.3); Total Protein 5.7 g/dL (6.3-8.2)
[2019-03-17] MEDS: MULTIVITAMINS, THERA 1 EACH TAB PO SCH (09:47)
[2019-03-17] MEDS: METOPROLOL SUCCINATE (ER) 100 MG TAB.ER.24H PO SCH (09:47)
[2019-03-17] MEDS: SPIRONOLACTONE 25 MG TAB PO SCH (09:47)
[2019-03-17] MEDS: PANTOPRAZOLE 40 MG TABLET PO SCH (09:47)
[2019-03-17] MEDS: POTASSIUM CHLORIDE ER 20 MEQ TAB.ER PO SCH (09:47)
[2019-03-17] MEDS: LORazepam 0.5 MG TAB PO SCH ×2 (09:48→20:49)
[2019-03-17] MEDS: THIAMINE 100 MG TAB PO SCH ×2 (09:48→18:08)
[2019-03-17] MEDS ORDERED: HYDROcodone/APAP 5-325MG 1 EACH TAB PO STA (11:00)
--- NOTE | 2019-03-17 12:02 | PN ---
PROGRESS NOTE DATE OF SERVICE: 03/16/2019 This 33-year-old woman who was admitted with paroxysmal atrial fibrillation also had abdominal pain. The patient is slated to go to inpatient psych. No chest pain. No palpitations. No fever. PHYSICAL EXAMINATION: On exam, alert and oriented x3. Pulse 76, blood pressure 94/60, respiration 18, temperature 97.9, pulse ox 94% on room air. HEENT: Conjunctivae normal. NECK: No jugular venous distention. CARDIOVASCULAR: S1, S2 muffled. RESPIRATORY: Breath sounds diminished bilaterally. A few scattered rhonchi. ABDOMEN: Soft, nontender. No mass palpable. LEGS: No edema. No swelling. NERVOUS SYSTEM: No focal deficits. LABS: WBC 6.3, hemoglobin 9.2. Amylase is 90, lipase is 1581. ASSESSMENT: 1. Paroxysmal atrial fibrillation with fast ventricular rate. 2. Abdominal pain with acute severe pancreatitis. 3. Possible acute gastritis. 4. Severe hypokalemia, improved. 5. Hyponatremia. 6. Diminished p.o. intake with dehydration, present on admission. 7. Elevated lactic acid, multifactorial. 8. Increased AST, ALT, possibly alcoholic hepatitis. 9. Hyperlipidemia. 10.History of nicotine dependence. 11.History of overdose and suicidal ideation. 12.History of ESBL. 13.History of hypomagnesemia. 14.History of transposition of great artery surgery as an . 15.History of anxiety. 16.Remote history of nicotine dependence. 17.History of congestive heart failure with nonischemic cardiomyopathy, ejection fraction 50% to 60% with most recent 2D echo. RECOMMENDATIONS AND DISCUSSION: Recommend to continue current medications. Continue with monitoring and symptomatic treatment. Otherwise at this time I recommend follow closely with multiple consultants. Continue to monitor. Further recommendations to follow. MMODL / IJN: [id number] / MTDD
--- NOTE | 2019-03-17 14:59 | PN ---
PROGRESS NOTE DATE OF SERVICE: 03/17/2019 This 33-year-old woman who was admitted with paroxysmal atrial fibrillation with a fast ventricular rate also had abdominal pain with acute severe pancreatitis. The patient also had acute gastritis. The patient is being closely monitored at this time. Gastroenterology has cleared the patient for inpatient rehab. No chest pain. No palpitations. No fever. On exam, alert and oriented x3. Pulse is 86, blood pressure 92/56, respiration 16, temperature 97.5, pulse ox 94% on room air. HEENT: Conjunctivae normal. NECK: No jugular venous distention. CARDIOVASCULAR SYSTEM: S1, S2 muffled. RESPIRATORY SYSTEM: Breath sounds diminished at the bases. No rhonchi. No crackles. ABDOMEN: Soft, non-tender. No mass palpable. LEGS: No edema. No swelling. NERVOUS SYSTEM: No focal deficit. LABS: WBC 6.4, hemoglobin 9.3. INR is 1.6 and amylase is 120, lipase 1573. ASSESSMENT: 1. Paroxysmal atrial fibrillation with a fast ventricular rate, present on admission, improved. 2. Abdominal pain with acute severe pancreatitis, improved. 3. Acute gastritis, improved. 4. Severe hypokalemia, improved. 5. Hyponatremia. 6. Diminished oral intake with dehydration, present on admission. 7. Elevated lactic acid, multifactorial. 8. Increased AST, ALT, possibly alcoholic hepatitis. 9. Hyperlipidemia. 10.History of nicotine dependence. 11.History of overdose and suicidal ideation. 12.History of extended-spectrum beta-lactamase. 13.History of hypomagnesemia. 14.History of surgery for transposition of great arteries as an . 15.History of anxiety. 16.History of congestive heart failure with non-ischemic cardiomyopathy, ejection fraction 50% to 60% on most recent 2D echo. RECOMMENDATIONS AND DISCUSSION: I recommend to continue current medications, continue with the monitoring, symptomatic treatment. Otherwise, the patient is currently stable for inpatient psych evaluation, except we will continue to monitor along with Psychiatry for possible transfer and continued treatment. The prognosis is guarded. Further recommendations to follow. Closely follow with Gastroenterology MMODL / CARMENN: [id number] / MTDMary
[2019-03-17] MEDS ORDERED: WARFARIN 2 MG TAB PO ONE (18:00)
[2019-03-17] MEDS: HYDROcodone/APAP 5-325MG 1 EACH TAB PO PRN (18:08)
[2019-03-18] MEDS: HYDROcodone/APAP 5-325MG 1 EACH TAB PO PRN ×3 (00:22→17:15)
--- NOTE | 2019-03-18 00:32 | DS ---
DISCHARGE SUMMARY DATE OF SERVICE: 03/17/2019. ADDENDUM: This 33-year-old woman was admitted with atrial fibrillation with fast ventricular as well as acute pancreatitis. Patient improved significantly with conservative line of management. Cardiology and Gastroenterology saw the patient. Cleared the patient for discharge. Recommend close followup and as well as repeat amylase, lipase also. Recommend a low-fat diet. On exam, vital signs are stable. Cardio system normal. Abdomen soft, nontender. NERVOUS SYSTEM: No focal deficits. RECOMMENDATION: In this 33-year-old woman, the patient is medically stable for inpatient rehab. I would recommend the patient to be transferred to inpatient psych and as well as follow up with Dr. Wilson after discharge and psych. Recommend low-fat diet. Recommend close follow up with Gastroenterology after discharge from the psych. Followup lipase and amylase. Also please refer to the previous dictation for list of medications and as well as list of diagnoses Total time taken 35 minutes. JOSE ANGEL / CAROLYN: [id number] /
[2019-03-18 07:44] LABS: Anisocytosis Slight; Basophils % (A) 1 %; Eosinophils # (A) 0.1 k/uL (0-0.7); Eosinophils % (A) 2 %; HCT 28.5 % (34.0-46.0); HGB 8.8 gm/dL (11.4-16.0); Hypochromasia Moderate; Lymphocytes # (A) 1.2 k/uL (1.0-4.8); Lymphocytes % (A) 26 %; MCH 31.3 pg (25.0-35.0); MCHC 30.8 g/dL (31.0-37.0); MCV 101.4 fL (80.0-100.0); Macrocytosis Slight; Mean Platelet Volume 8.1; Monocytes # (A) 0.4 k/uL (0-1.0); Monocytes % (A) 8 %; Neutrophils # (A) 2.7 k/uL (1.3-7.7); Neutrophils % (A) 60 %; Platelet Count 221 k/uL (150-450); RBC 2.81 m/uL (3.80-5.40); RDW 16.2 % (11.5-15.5); WBC 4.6 k/uL (3.8-10.6)
[2019-03-18] MEDS: MULTIVITAMINS, THERA 1 EACH TAB PO SCH (07:49)
[2019-03-18] MEDS: THIAMINE 100 MG TAB PO SCH ×2 (07:50→17:12)
[2019-03-18] MEDS: PANTOPRAZOLE 40 MG TABLET PO SCH (07:50)
[2019-03-18] MEDS: SPIRONOLACTONE 25 MG TAB PO SCH (07:50)
[2019-03-18] MEDS: METOPROLOL SUCCINATE (ER) 100 MG TAB.ER.24H PO SCH (07:50)
[2019-03-18] MEDS: POTASSIUM CHLORIDE ER 20 MEQ TAB.ER PO SCH (07:50)
[2019-03-18] MEDS: LORazepam 0.5 MG TAB PO SCH ×2 (07:50→20:46)
[2019-03-18 07:59] LABS: INR 1.5 (<1.2); Prothrombin Time 15.1 sec (9.0-12.0)
[2019-03-18 08:18] LABS: ALT 43 U/L (9-52); AST 68 U/L (14-36); African American GFR (CKD) >90 (>60 ml/min/1.73 sqM); Albumin 2.8 g/dL (3.5-5.0); Alkaline Phosphatase 100 U/L (38-126); Amylase 134 U/L (30-110); Anion Gap 6 mmol/L; Blood Urea Nitrogen 3 mg/dL (7-17); Calcium 9.5 mg/dL (8.4-10.2); Carbon Dioxide 26 mmol/L (22-30); Chloride 106 mmol/L (98-107); Glucose 90 mg/dL (74-99); Potassium 4.5 mmol/L (3.5-5.1); Sodium 138 mmol/L (137-145); Total Bilirubin 4.1 mg/dL (0.2-1.3); Total Protein 5.1 g/dL (6.3-8.2)
[2019-03-18 08:37] LABS: Lipase 2070 U/L (23-300)
[2019-03-18] MEDS ORDERED: WARFARIN 2.5 MG TAB PO ONE (18:00)
--- NOTE | 2019-03-19 | PN ---
PROGRESS NOTE DATE OF SERVICE: 03/18/2019. This 33-year-old woman is admitted for paroxysmal atrial fibrillation, pancreatitis being closely monitored. Inpatient psych evaluation being planned. No chest pain. No palpitation. EXAM: Alert and oriented times three. Pulse 78, blood pressure 97/50, respirations 18, temperature 97.2, pulse ox 94% on room air. HEENT: Conjunctivae normal. NECK: No jugular venous distention. CARDIOVASCULAR: S1, S2. RESPIRATORY: Breath sounds diminished in the bases. No rhonchi. No crackles. ABDOMEN is soft, nontender. No mass. LEGS: No edema. No swelling. NERVOUS SYSTEM: No focal deficits. LAB: WBC 4.7, hemoglobin is 8.8, INR 1.5. The amylase is 135, lipase is 2070. ASSESSMENT: 1. Paroxysmal atrial fibrillation with fast ventricular rate, present on admission improved. 2. Abdominal pain with acute severe pancreatitis, improved. 3. Acute gastritis improved. 4. Severe hypokalemia, improved. 5. Hyponatremia. 6. Diminished p.o. intake with dehydration, present on admission. 7. Elevated lactic acid multifactorial. 8. Increased AST/ALT possibly alcoholic hepatitis. 9. Hyperlipidemia. 10.History of nicotine dependence. 11.History of overdose and suicidal ideation. 12.ESbeta lactamase infection. 13.Hypomagnesemia. 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 15.History of anxiety. 16.History of congestive heart failure with nonischemic cardiomyopathy, ejection fraction 50 to 60% with most recent 2D echo. RECOMMENDATIONS AND DISCUSSION: Recommend to continue current medications, monitoring and symptomatic treatment. Otherwise, at this time, I recommend continue with diet and the patient is stable as per Gastroenterology to be transferred to inpatient psych. We will continue to monitor. Further recommendations to follow. MMODL / IJN: [id number] / MTDMary
[2019-03-19] MEDS: HYDROcodone/APAP 5-325MG 1 EACH TAB PO PRN ×3 (00:12→15:30)
[2019-03-19 01:54] VITALS: RESP 18
[2019-03-19 07:20] VITALS: BP 95/60; PULSE 92; TEMP 98
[2019-03-19] MEDS: METOPROLOL SUCCINATE (ER) 100 MG TAB.ER.24H PO SCH (07:59)
[2019-03-19] MEDS: SPIRONOLACTONE 25 MG TAB PO SCH (07:59)
[2019-03-19] MEDS: LORazepam 0.5 MG TAB PO SCH (08:00)
[2019-03-19] MEDS: POTASSIUM CHLORIDE ER 20 MEQ TAB.ER PO SCH (08:00)
[2019-03-19] MEDS: MULTIVITAMINS, THERA 1 EACH TAB PO SCH (08:00)
[2019-03-19] MEDS: PANTOPRAZOLE 40 MG TABLET PO SCH (08:00)
[2019-03-19] MEDS: THIAMINE 100 MG TAB PO SCH (08:00)
[2019-03-19 08:15] LABS: Anisocytosis Slight; Basophils # (A) 0.1 k/uL (0-0.2); Basophils % (A) 1 %; Eosinophils # (A) 0.1 k/uL (0-0.7); Eosinophils % (A) 2 %; HCT 28.7 % (34.0-46.0); HGB 9.1 gm/dL (11.4-16.0); Hypochromasia Moderate; Lymphocytes % (A) 24 %; MCH 31.9 pg (25.0-35.0); MCHC 31.5 g/dL (31.0-37.0); MCV 101.2 fL (80.0-100.0); Macrocytosis Slight; Mean Platelet Volume 8.1; Monocytes # (A) 0.4 k/uL (0-1.0); Monocytes % (A) 8 %; Neutrophils # (A) 2.7 k/uL (1.3-7.7); Neutrophils % (A) 61 %; Platelet Count 221 k/uL (150-450); RBC 2.84 m/uL (3.80-5.40); RDW 16.1 % (11.5-15.5); WBC 4.4 k/uL (3.8-10.6)
[2019-03-19 08:32] LABS: INR 1.5 (<1.2); Prothrombin Time 14.9 sec (9.0-12.0)
[2019-03-19 08:33] LABS: ALT 36 U/L (9-52); AST 56 U/L (14-36); African American GFR (CKD) >90 (>60 ml/min/1.73 sqM); Albumin 2.8 g/dL (3.5-5.0); Alkaline Phosphatase 101 U/L (38-126); Amylase 152 U/L (30-110); Anion Gap 7 mmol/L; Blood Urea Nitrogen 3 mg/dL (7-17); Calcium 8.9 mg/dL (8.4-10.2); Carbon Dioxide 25 mmol/L (22-30); Chloride 105 mmol/L (98-107); Glucose 90 mg/dL (74-99); Lipase 1939 U/L (23-300); Potassium 4.3 mmol/L (3.5-5.1); Sodium 137 mmol/L (137-145); Total Bilirubin 4.5 mg/dL (0.2-1.3); Total Protein 5.2 g/dL (6.3-8.2)
[2019-03-19] MEDS ORDERED: LORazepam 1 MG TAB PO PRN (13:34)
--- NOTE | 2019-03-19 13:55 | PN ---
PROGRESS NOTE INTERVAL HISTORY: The patient is been seen by Dr. Dowell in psychiatric consultation several days ago. I am asked by nursing to re-evaluate the patient. I reviewed Dr. Dowell's psychiatric evaluation and also the medical notes including labs. The patient was admitted to the medical floor with acute pancreatitis. She is being followed by Dr. Melchor and the Gastroenterology service. Her amylase, lipase remain elevated. Her bilirubin appears elevated from yesterday. Hemoglobin is low. The patient had reported upon admission that she had overdosed with 20 sleeping pills in the context of using alcohol. She had stated that she was on a 3 day binge consuming more than a pint a day. She was evaluated by Dr. Dowell and there was concern as this was the 2nd suicide attempt in the year. The patient had described losing her job and was still grieving a relationship from over a year ago. The recommendation was made that the patient be admitted to the inpatient psychiatric unit. With me this afternoon, the patient recants her previous story. She states that there was never a 2nd suicide attempt and that people misunderstood her and that there was only the original suicide attempt 1 year ago. She states that she wants to be discharged and does not need any further psychiatric help. She only wants to continue using Ativan as needed for anxiety. We spent some time discussing options for an antidepressant medication that could be preventative for anxiety. MENTAL STATUS EXAM: The patient is alert. She is seated upright in bed. She is dressed in hospital attire. She is wearing eyeglasses. She is initially calm during the session. She reports having some depressed mood lately and anxiety. She is reporting no acute suicidal ideation at this time. She becomes more labile as the session progresses. She demonstrates tearfulness and then some mild irritability. She is reporting no homicidal ideations. She endorses no symptoms of psychosis. There is no observed evidence of psychosis. She demonstrates no verbal or physical aggressiveness. No abnormal involuntary movements. She is oriented to person, place, and date. IMPRESSION: Depression unspecified rule out major depressive disorder, rule out alcohol use disorder, current pancreatitis. PLAN: The patient is now trying to recant her previous story. Based on the documentation and my interaction with her, I am not comfortable recommending discharge from the hospital at this time. She would likely benefit from inpatient psychiatric hospitalization to further evaluate her symptoms and provide a medication recommendation. At this time, continue the patient safety officer. Once we have an available bed she can be transferred to our psychiatric unit or transferred to another facility if availability if there is an available bed. Dr. Dowell will continue following the patient for our service. JOSE ANGEL / CARMENN: [id number] /
[2019-03-19] MEDS ORDERED: WARFARIN 3 MG TAB PO ONE (18:00)
--- NOTE | 2019-03-20 00:49 | DS ---
DISCHARGE SUMMARY DATE OF SERVICE: 03/19/2019. ADDENDUM: This 33-year-old woman was admitted with multiple medical problems including atrial ablation as well as acute pancreatitis in the setting of overdose and multiple psychiatric issues. The patient improved significantly. The patient was seen by Cardiology and Gastroenterology and cleared the patient for discharge to inpatient psych. The psychiatry was concerned about the pancreatitis, but however, her amylase is 152 and lipase is 1939, which is stable and the patient is cleared from a gastroenterology point of view by Dr. Pizano. Please note patient is asymptomatic and continues to eat a low-fat diet and the patient has history of significant history of alcohol in the past. On exam, vitals are stable. Cardiovascular S1, S2. Abdomen soft, nontender. Nervous System: No focal deficit. Please refer to the previous dictation for list of diagnoses, list of medications, which remains the same. Dr. Wilson will be following the patient in the psych for medical management and continued followup and Dr. Pizano also could be consulted for any further changes in the amylase, lipase levels, so any concerns regarding pancreatitis. MMODL / IJN: [id number] /
== END 2019-03-19 15:35 | DRG 917 ==
LOC: EC 17:53 → 3SCARD 21:14 → 4SSUR 03-16 20:30
PROVIDERS: ADMIT Family Medicine; ATTEND Family Medicine
DX: T45.0X2A Poisoning by antiallergic and antiemetic drugs, intentional self-harm, initial encounter (principal); K85.90 Acute pancreatitis without necrosis or infection, unspecified; E87.1 Hypo-osmolality and hyponatremia; F33.2 Major depressive disorder, recurrent severe without psychotic features; Q21.0 Ventricular septal defect; I42.9 Cardiomyopathy, unspecified; R45.851 Suicidal ideations; Z87.440 Personal history of urinary (tract) infections; D64.9 Anemia, unspecified; E78.1 Pure hyperglyceridemia; E78.5 Hyperlipidemia, unspecified; E83.42 Hypomagnesemia; E86.0 Dehydration; E87.6 Hypokalemia; F10.129 Alcohol abuse with intoxication, unspecified; Y90.6 Blood alcohol level of 120-199 mg/100 ml; F41.9 Anxiety disorder, unspecified; I27.20 Pulmonary hypertension, unspecified; I07.1 Rheumatic tricuspid insufficiency; I48.0 Paroxysmal atrial fibrillation; I50.9 Heart failure, unspecified; K29.00 Acute gastritis without bleeding; K70.10 Alcoholic hepatitis without ascites; K76.0 Fatty (change of) liver, not elsewhere classified; R79.1 Abnormal coagulation profile; T45.515A Adverse effect of anticoagulants, initial encounter; Z79.01 Long term (current) use of anticoagulants; Z79.899 Other long term (current) drug therapy; Z86.19 Personal history of other infectious and parasitic diseases; Z87.891 Personal history of nicotine dependence; Z91.5 Personal history of self-harm; Z60.2 Problems related to living alone; R74.8 Abnormal levels of other serum enzymes
CPT/HCPCS: 36415; 71046; 74176; 76705; 80053; 80061; 80162; 80306; 80320; 80329; 81001; 81025; 82150; 83520; 83605; 83690; 83735; 84484; 85025; 85610; 85730; 87040; 87086; 93005; 96361; 96374; 96375; 96376; 99285

== ENCOUNTER 2019-03-23 13:53 | Emergency (ER) | payer OTHER ==
[2019-03-23 14:09] VITALS: BP 101/67; PULSE 79; RESP 18; TEMP 98
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
== END 2019-03-23 16:20 | disposition home or self-care (01) ==
LOC: EC 13:53
DX: S16.1XXA Strain of muscle, fascia and tendon at neck level, initial encounter (principal); I48.91 Unspecified atrial fibrillation; I50.9 Heart failure, unspecified; Z87.891 Personal history of nicotine dependence; Z79.01 Long term (current) use of anticoagulants; Z79.899 Other long term (current) drug therapy; V49.40XA Driver injured in collision with unspecified motor vehicles in traffic accident, initial encounter; Y92.410 Unspecified street and highway as the place of occurrence of the external cause
CPT/HCPCS: 70450; 72125; 99284

== ENCOUNTER 2019-03-31 03:11 | Emergency (ER) | payer OTHER ==
[2019-03-31 03:22] VITALS: TEMP 97.6
[2019-03-31] MEDS ORDERED: PROMETHAZINE INJ 25 MG in SODIUM CHLORIDE 0.9% 50 ML IVPB STA ×2 (03:49→06:27)
[2019-03-31 04:01] LABS: Basophils # (A) 0.1 k/uL (0-0.2); Basophils % (A) 1 %; Eosinophils # (A) 0.1 k/uL (0-0.7); Eosinophils % (A) 1 %; HCT 41.4 % (34.0-46.0); Lymphocytes # (A) 3.2 k/uL (1.0-4.8); Lymphocytes % (A) 30 %; MCH 29.1 pg (25.0-35.0); MCHC 32.7 g/dL (31.0-37.0); Mean Platelet Volume 7.3; Monocytes # (A) 0.6 k/uL (0-1.0); Monocytes % (A) 5 %; Neutrophils # (A) 6.7 k/uL (1.3-7.7); Neutrophils % (A) 62 %; RBC 4.66 m/uL (3.80-5.40); RDW 15.9 % (11.5-15.5); WBC 10.8 k/uL (3.8-10.6)
[2019-03-31] MEDS ORDERED: LORazepam 2 MG/ML INJ IV STA (04:04)
[2019-03-31 04:13] LABS: INR 1.4 (<1.2); Partial Thromboplastin Time 27.5 sec (22.0-30.0)
[2019-03-31 04:15] LABS: ALT 49 U/L (9-52); AST 181 U/L (14-36); African American GFR (CKD) >90 (>60 ml/min/1.73 sqM); Albumin 4.9 g/dL (3.5-5.0); Alkaline Phosphatase 169 U/L (38-126); Amylase 85 U/L (30-110); Anion Gap 23 mmol/L; Blood Urea Nitrogen 2 mg/dL (7-17); Carbon Dioxide 28 mmol/L (22-30); Chloride 86 mmol/L (98-107); Glucose 135 mg/dL (74-99); Lipase 572 U/L (23-300); Magnesium 1.1 mg/dL (1.6-2.3); Potassium 2.9 mmol/L (3.5-5.1); Sodium 137 mmol/L (137-145); Total Bilirubin 2.4 mg/dL (0.2-1.3); Total Protein 8.5 g/dL (6.3-8.2)
[2019-03-31 04:21] LABS: HGB 13.5 gm/dL (11.4-16.0); MCV 88.9 fL (80.0-100.0); Platelet Count 743 k/uL (150-450)
[2019-03-31 04:23] LABS: D-Dimer 2.53 mg/L FEU (<0.60)
--- NOTE | 2019-03-31 04:31 | XR ---
EXAM: XR Chest, 2 Views CLINICAL HISTORY: Pain TECHNIQUE: Frontal and lateral views of the chest. COMPARISON: 03/13/2019. FINDINGS: Lungs: See below. Pleural space: No pleural effusions. No pneumothorax. Heart: Stable cardiomegaly with findings suggestive of mild pulmonary vascular congestion/pulmonary edema, similar to the prior study. Mediastinum: Essentially unchanged. Bones/joints: Unremarkable. IMPRESSION: Stable cardiomegaly with findings suggestive of mild pulmonary vascular congestion/pulmonary edema, similar to the prior study.
[2019-03-31] MEDS ORDERED: MAGNESIUM SULFATE-D5W PMX 1 GM in DEXTROSE/WATER 1 100ML.BAG IVPB ONE (04:49)
[2019-03-31] MEDS ORDERED: POTASSIUM CHLORIDE ER 20 MEQ TAB.ER PO STA (04:49)
--- NOTE | 2019-03-31 05:57 | CT ---
EXAM: CT Angiography Chest With Intravenous Contrast CLINICAL HISTORY: chest pain, right side numbness, hx of open heart due to transposition on great arteries as an infant, heart failure, r/o PE, elevated d-dimer, TECHNIQUE: Axial computed tomographic angiography images of the chest with intravenous contrast using pulmonary embolism protocol. CTDI is 15.47 mGy and DLP is 264.4 mGy-cm. This CT exam was performed using one or more of the following dose reduction techniques: automated exposure control, adjustment of the mA and/or kV according to patient size, and/or use of iterative reconstruction technique. MIP reconstructed images were created and reviewed. COMPARISON: No relevant prior studies available. FINDINGS: Pulmonary arteries: Main pulmonary artery measures up to 6.5 cm in diameter suggesting significant pulmonary hypertension. No pulmonary embolism. Aorta: No acute findings. No thoracic aortic aneurysm. Other arteries: Transposition of the great arteries is noted with associated postoperative changes. Lungs: Unremarkable. No mass. No consolidation. Pleural space: Unremarkable. No significant effusion. No pneumothorax. Heart: Mild/moderate cardiomegaly with evidence of right heart strain. No significant pericardial effusion. Bones/joints: Sternotomy wires noted. No acute fracture. No dislocation. Soft tissues: Unremarkable. Lymph nodes: Unremarkable. No enlarged lymph nodes. IMPRESSION: 1. Transposition of the great arteries is noted with associated postoperative changes. Correlate with patient's surgical history. 2. Main pulmonary artery measures up to 6.5 cm in diameter suggesting significant pulmonary hypertension. 3. Mild/moderate cardiomegaly with evidence of right heart strain. 4. No evidence of PE.
--- NOTE | 2019-03-31 06:05 | ED ---
Chest Pain HPI - General Chief Complaint: Chest Pain Stated Complaint: Right Side Numbness Time Seen by Provider: 03/31/19 03:57 Source: patient, family Mode of arrival: wheelchair Limitations: no limitations - History of Present Illness Initial Comments: This patient is a 33-year-old woman who presents with couple of complaints. She has been feeling some chest tightness as well as some shortness of breath and she is concerned she may be having either congestive heart failure or hyperkalemia. She states that she has had these symptoms are related to both conditions in the past. Patient states that she has not been eating well or taking much in way of fluids over the past day. She also is feeling very anxious. Patient does note that she is usually taking Ativan twice per day and she did not take that over the past 24 hours. MD Complaint: chest pain, other Onset/Timin -: days(s) Onset: during rest Pain Location: substernal Pain Radiation: none Quality: tightness Consistency: constant Improves With: nothing Worsens With: nothing Treatments Prior to Arrival: none - Related Data Home Medications Medication Instructions Recorded Confirmed Digoxin [Digitek] 125 mcg PO DAILY 12/19/17 03/31/19 Spironolactone [Aldactone] 25 mg PO DAILY 12/19/17 03/31/19 Metoprolol Succinate (ER) [Toprol 100 mg PO DAILY 03/19/18 03/31/19 XL] Warfarin [Coumadin] 1 mg PO HS@1800 03/13/19 03/31/19 Furosemide [Lasix] 80 mg PO DAILY 03/19/19 03/31/19 Potassium Chloride [Klor-Con 20] 40 meq PO DAILY 03/19/19 03/31/19 LORazepam [Ativan] 0.5 mg PO TID PRN 03/31/19 03/31/19 Previous Rx's Medication Instructions Recorded Escitalopram [Lexapro] 10 mg PO DAILY #30 tab 03/21/19 Cyclobenzaprine [Flexeril] 1 - 2 tab PO TID #20 tablet 03/23/19 Allergies Allergy/AdvReac Type Severity Reaction Status Date / Time Iodinated Contrast- Oral and AdvReac TWITCHING Verified 03/31/19 07:36 IV Dye Review of Systems ROS Statement: Those systems with pertinent positive or pertinent negative responses have been documented in the HPI. ROS Other: All systems not noted in ROS Statement are negative. Constitutional: Denies: fever, chills, weakness Respiratory: Reports: dyspnea. Denies: cough, wheezes, hemoptysis, stridor Cardiovascular: Reports: chest pain. Denies: palpitations, orthopnea, edema, syncope Gastrointestinal: Denies: abdominal pain, nausea, vomiting, diarrhea Genitourinary: Denies: dysuria, hematuria Musculoskeletal: Denies: back pain Skin: Denies: rash Neurological: Denies: headache, weakness, numbness Psychiatric: Reports: anxiety. Denies: suicidal thoughts EKG Findings - EKG Results: EKG: interpreted by ALYSSAD, sinus rhythm (Rate 85 bpm), normal axis, normal ST/T - Blocks, [place], Hypertrophy, ST Abn: AV and intraventricular conduction: right bundle branch block (fixed/intermittent, complete/incomplete) Past Medical History Past Medical History: Atrial Fibrillation, Heart Failure Additional Past Medical History / Comment(s): Afib with RVR, pt had transposition of great arteries as an , hypomagnesemia. History of Any Multi-Drug Resistant Organisms: ESBL Date of last positivie culture/infection: 02/25/17 ESBL-Klebsiella MDRO Source:: Urine Past Surgical History: No Surgical Hx Reported Additional Past Surgical History / Comment(s): open heart surg for transposition of great arteries, CARDIOVERTED FOR A- FIB twice Past Anesthesia/Blood Transfusion Reactions: No Reported Reaction Past Psychological History: No Psychological Hx Reported, Anxiety Smoking Status: Former smoker Past Alcohol Use History: None Reported Past Drug Use History: None Reported - Past Family History Mother Family Medical History: No Reported History Additional Family Medical History / Comment(s): Mother is healthy Father Family Medical History: No Reported History Additional Family Medical History / Comment(s): Father is healthy General Exam Limitations: no limitations General appearance: alert, in no apparent distress, anxious Head exam: Present: atraumatic, normocephalic Eye exam: Present: normal appearance. Absent: scleral icterus, conjunctival injection ENT exam: Present: mucous membranes dry Neck exam: Present: normal inspection Respiratory exam: Present: normal lung sounds bilaterally. Absent: respiratory distress, wheezes, rales, rhonchi, stridor, accessory muscle use, decreased henry th sounds, prolonged expiratory Cardiovascular Exam: Present: regular rate, normal rhythm, normal heart sounds. Absent: systolic murmur, diastolic murmur, rubs, gallop GI/Abdominal exam: Present: soft. Absent: distended, tenderness, guarding, rebound, rigid, mass Extremities exam: Present: normal inspection, normal capillary refill. Absent: pedal edema, calf tenderness Back exam: Present: normal inspection. Absent: CVA tenderness (R), CVA tenderness (L) Neurological exam: Present: alert Skin exam: Present: warm, dry, intact, normal color. Absent: rash Course Vital Signs 03/31/19 03/31/19 03/31/19 03:18 05:15 06:07 Temperature 97.6 F Pulse Rate 87 71 72 Respiratory 20 18 18 Rate Blood Pressure 112/80 107/77 109/79 O2 Sat by Pulse 98 94 L Oximetry 03/31/19 03/31/19 06:20 07:23 Temperature 97.6 F Pulse Rate 92 98 Respiratory 16 16 Rate Blood Pressure 122/83 118/82 O2 Sat by Pulse 96 96 Oximetry Chest Pain MDM - MDM This patient is a 33-year-old woman presenting with some dyspnea and chest tightness, and concerned she may be developing hypokalemia or CHF. The patient does have some mild hypokalemia and hypomagnesemia. These are both supplemented. The patient is started back on the Ativan that she does take daily. I addition the patient has had a small amount of vomiting with a trace of coffee-ground material. Her blood counts look well, and she is feeling better following treatment here. Discussed appropriate further care and follow-up as well as return parameters. Disposition Clinical Impression: Anxiety, Hypokalemia, Hypomagnesemia Disposition: HOME SELF-CARE Condition: Good Instructions (If sedation given, give patient instructions): Hypokalemia (ED), Hypomagnesemia (ED), Anxiety (ED) Is patient prescribed a controlled substance at d/c from ED?: No Referrals: Rodeny Wilson MD [Primary Care Provider] - 1-2 days
[2019-03-31 06:22] VITALS: RESP 16
[2019-03-31] MEDS ORDERED: PANTOPRAZOLE 40 MG/10 ML VIAL IVP STA (07:13)
[2019-03-31 07:25] VITALS: BP 118/82; PULSE 98
== END 2019-03-31 07:25 | disposition home or self-care (01) ==
LOC: EC 03:11
DX: E83.42 Hypomagnesemia (principal); E87.6 Hypokalemia; F41.9 Anxiety disorder, unspecified; R07.2 Precordial pain; I48.91 Unspecified atrial fibrillation; I50.9 Heart failure, unspecified; Z98.890 Other specified postprocedural states; Z87.891 Personal history of nicotine dependence; Z79.01 Long term (current) use of anticoagulants; Z79.899 Other long term (current) drug therapy; Z91.041 Radiographic dye allergy status
CPT/HCPCS: 99285; 96365; 96367; 96375 ×2; 96376; 36415; 93005; 85379; 83880; 80053; 82150; 83690; 83735; 84484; 85025; 85610; 85730; 71046; 71275; J2060; J2550; J3475; C9113; Q9967

== ENCOUNTER 2019-08-30 16:10 | Inpatient (IN) | payer OTHER ==
[2019-08-30] MEDS ORDERED: SODIUM CHLORIDE 0.9% 1,000 ML IV STA (16:51)
--- NOTE | 2019-08-30 16:54 | ED ---
SOB HPI - General Chief Complaint: Shortness of Breath Stated Complaint: EMILI, Hx CHF, BLACK STOOL Time Seen by Provider: 08/30/19 16:35 Source: patient, RN notes reviewed Mode of arrival: wheelchair Limitations: no limitations - History of Present Illness Initial Comments: This a 34-year-old female with a history of heart disease as well as anxiety who states she ran out of her medication several days ago and discussed filled today this did include heart medication and benzodiazepines who presents with complaints of shortness of breath sharp left sternal chest pain also she states she had some black colored stool today that she believes is consistent with blood. She has no prior history of gastrointestinal disease. She states she did get her medications this morning and did have some dosing of it. She has a fevers chills nausea vomiting sweats. MD Complaint: shortness of breath, chest pain - Related Data Home Medications Medication Instructions Recorded Confirmed Digoxin [Digitek] 125 mcg PO DAILY 12/19/17 03/31/19 Spironolactone [Aldactone] 25 mg PO DAILY 12/19/17 03/31/19 Metoprolol Succinate (ER) [Toprol 100 mg PO DAILY 03/19/18 03/31/19 XL] Warfarin [Coumadin] 1 mg PO HS@1800 03/13/19 03/31/19 Furosemide [Lasix] 80 mg PO DAILY 03/19/19 03/31/19 Potassium Chloride [Klor-Con 20] 40 meq PO DAILY 03/19/19 03/31/19 LORazepam [Ativan] 0.5 mg PO TID PRN 03/31/19 03/31/19 Previous Rx's Medication Instructions Recorded Escitalopram [Lexapro] 10 mg PO DAILY #30 tab 03/21/19 Cyclobenzaprine [Flexeril] 1 - 2 tab PO TID #20 tablet 03/23/19 Allergies Allergy/AdvReac Type Severity Reaction Status Date / Time Iodinated Contrast Media AdvReac TWITCHING Verified 08/30/19 16:25 [Iodinated Contrast- Oral and IV Dye] Review of Systems ROS Statement: Those systems with pertinent positive or pertinent negative responses have been documented in the HPI. ROS Other: All systems not noted in ROS Statement are negative. Past Medical History Past Medical History: Atrial Fibrillation, Heart Failure Additional Past Medical History / Comment(s): Afib with RVR, pt had transposition of great arteries as an , hypomagnesemia. History of Any Multi-Drug Resistant Organisms: ESBL Date of last positivie culture/infection: 02/25/17 ESBL-Klebsiella MDRO Source:: Urine Past Surgical History: No Surgical Hx Reported Additional Past Surgical History / Comment(s): open heart surg for transposition of great arteries, CARDIOVERTED FOR A- FIB twice Past Anesthesia/Blood Transfusion Reactions: No Reported Reaction Past Psychological History: No Psychological Hx Reported, Anxiety Smoking Status: Former smoker Past Alcohol Use History: None Reported Past Drug Use History: None Reported - Past Family History Mother Family Medical History: No Reported History Additional Family Medical History / Comment(s): Mother is healthy Father Family Medical History: No Reported History Additional Family Medical History / Comment(s): Father is healthy General Exam - General Exam Comments Initial Comments: This is a well-developed well-nourished awake alert very anxious female Limitations: no limitations General appearance: alert, anxious Head exam: Present: atraumatic, normocephalic, normal inspection Eye exam: Present: normal appearance, PERRL, EOMI. Absent: scleral icterus, conjunctival injection, periorbital swelling ENT exam: Present: normal exam, mucous membranes moist Neck exam: Present: normal inspection. Absent: tenderness, meningismus, lymphadenopathy Respiratory exam: Present: normal lung sounds bilaterally. Absent: respiratory distress, wheezes, rales, rhonchi, stridor Cardiovascular Exam: Present: regular rate, normal rhythm, normal heart sounds, other (Well-healed scars from childhood open-heart surgery). Absent: systolic murmur, diastolic murmur, rubs, gallop, clicks GI/Abdominal exam: Present: soft, normal bowel sounds. Absent: distended, te nderness, guarding, rebound, rigid, bruit, pulsatile mass, hernia Rectal exam: Present: heme (+) stool, black stool (No masses no evidence of active bleeding at this time) Extremities exam: Present: normal inspection, full ROM, normal capillary refill. Absent: tenderness, pedal edema, joint swelling, calf tenderness Back exam: Present: normal inspection Neurological exam: Present: alert, oriented X3, CN II-XII intact Psychiatric exam: Present: anxious Skin exam: Present: warm, dry, intact, normal color. Absent: rash Course Vital Signs 08/30/19 08/30/19 16:23 18:30 Temperature 98.7 F Pulse Rate 73 114 H Respiratory 20 19 Rate Blood Pressure 114/56 125/68 O2 Sat by Pulse 98 99 Oximetry - Reevaluation(s) Reevaluation #1: 08/30/19 19:08 Reevaluation patient reveals she still very anxious I did discuss the findings with her including a low potassium and magnesium levels as well as a heme- positive stools. I did discuss the case with Dr. Wilson. Patient be admitted patient was given vitamin K. Medical Decision Making - Medical Decision Making I did discuss findings with patient as well as Dr. Estrada patient is hemodynamically stable she will be admitted for evaluation of the above - Lab Data Result diagrams: 08/30/19 17:06 08/30/19 17:06 Lab Results 08/30/19 08/30/19 08/30/19 Range/Units 17:06 17:06 17:06 WBC 9.7 (3.8-10.6) k/uL RBC 3.92 (3.80-5.40) m/uL Hgb 10.9 L (11.4-16.0) gm/dL Hct 32.7 L (34.0-46.0) % MCV 83.4 (80.0-100.0) fL MCH 27.8 (25.0-35.0) pg MCHC 33.4 (31.0-37.0) g/dL RDW 18.5 H (11.5-15.5) % Plt Count 276 (150-450) k/uL Neutrophils % 74 % Lymphocytes % 17 % Monocytes % 7 % Eosinophils % 0 % Basophils % 0 % Neutrophils # 7.2 (1.3-7.7) k/uL Lymphocytes # 1.7 (1.0-4.8) k/uL Monocytes # 0.6 (0-1.0) k/uL Eosinophils # 0.0 (0-0.7) k/uL Basophils # 0.0 (0-0.2) k/uL Anisocytosis Slight PT 73.1 H (9.0-12.0) sec INR 7.5 H* (<1.2) APTT 40.3 H (22.0-30.0) sec D-Dimer 0.23 (<0.60) mg/L FEU Sodium 135 L (137-145) mmol/L Potassium 3.1 L (3.5-5.1) mmol/L Chloride 92 L (98-107) mmol/L Carbon Dioxide 23 (22-30) mmol/L Anion Gap 20 mmol/L BUN 13 (7-17) mg/dL Creatinine 0.63 (0.52-1.04) mg/dL Est GFR (CKD-EPI)AfAm >90 (>60 ml/min/1.73 sqM) Est GFR (CKD-EPI)NonAf >90 (>60 ml/min/1.73 sqM) Glucose 92 (74-99) mg/dL Calcium 9.0 (8.4-10.2) mg/dL Magnesium 0.9 L* (1.6-2.3) mg/dL Total Bilirubin 1.9 H (0.2-1.3) mg/dL AST 56 H (14-36) U/L ALT 32 (9-52) U/L Alkaline Phosphatase 94 (38-126) U/L Creatine Kinase 100 (30-135) U/L Troponin I (0.000-0.034) ng/mL NT-Pro-B Natriuret Pep pg/mL Total Protein 7.1 (6.3-8.2) g/dL Albumin 4.4 (3.5-5.0) g/dL Stool Occult Blood (Negative) 08/30/19 08/30/19 08/30/19 Range/Units 17:06 17:06 17:27 WBC (3.8-10.6) k/uL RBC (3.80-5.40) m/uL Hgb (11.4-16.0) gm/dL Hct (34.0-46.0) % MCV (80.0-100.0) fL MCH (25.0-35.0) pg MCHC (31.0-37.0) g/dL RDW (11.5-15.5) % Plt Count (150-450) k/uL Neutrophils % % Lymphocytes % % Monocytes % % Eosinophils % % Basophils % % Neutrophils # (1.3-7.7) k/uL Lymphocytes # (1.0-4.8) k/uL Monocytes # (0-1.0) k/uL Eosinophils # (0-0.7) k/uL Basophils # (0-0.2) k/uL Anisocytosis PT (9.0-12.0) sec INR (<1.2) APTT (22.0-30.0) sec D-Dimer (<0.60) mg/L FEU Sodium (137-145) mmol/L Potassium (3.5-5.1) mmol/L Chloride (98-107) mmol/L Carbon Dioxide (22-30) mmol/L Anion Gap mmol/L BUN (7-17) mg/dL Creatinine (0.52-1.04) mg/dL Est GFR (CKD-EPI)AfAm (>60 ml/min/1.73 sqM) Est GFR (CKD-EPI)NonAf (>60 ml/min/1.73 sqM) Glucose (74-99) mg/dL Calcium (8.4-10.2) mg/dL Magnesium (1.6-2.3) mg/dL Total Bilirubin (0.2-1.3) mg/dL AST (14-36) U/L ALT (9-52) U/L Alkaline Phosphatase (38-126) U/L Creatine Kinase (30-135) U/L Troponin I 0.067 H* (0.000-0.034) ng/mL NT-Pro-B Natriuret Pep 1370 pg/mL Total Protein (6.3-8.2) g/dL Albumin (3.5-5.0) g/dL Stool Occult Blood Positive H (Negative) - EKG Data -: EKG Interpreted by Me (EKG shows sinus tachycardia of 129 with supraventricular complexes ID inter) EKG Comments: EKG shows a sinus tachycardia of 129 ID interval 208 QRS duration 134 daily since QTC 374/547 a bundle-branch block pattern sinus tachycardia with premature ventricular complexes. This is compared with EKG dated 03/31/19 - Radiology Data Radiology results: report reviewed ( ), image reviewed Critical Care Time Critical Care Time: Yes Critical Care Time: 39 minutes of critical care time which includes initial presentation with history physical labs x-rays multiple reevaluation the patient discussed with the patient regarding findings discussion with the admitting physician admission orders and documentation the above. Disposition Clinical Impression: Upper GI bleed, Anemia, Coumadin toxicity, Hypomagnesemia syndrome, Hypokalemia, Elevated troponin Disposition: ADMITTED IP TO THIS HOSP Condition: Fair Referrals: Rodney Wilson MD [Primary Care Provider] - 1-2 days
[2019-08-30] MEDS ORDERED: LORazepam 2 MG/ML INJ IV STA ×3 (17:10→19:30)
[2019-08-30 17:19] LABS: Anisocytosis Slight; Basophils % (A) 0 %; Eosinophils % (A) 0 %; HCT 32.7 % (34.0-46.0); HGB 10.9 gm/dL (11.4-16.0); Lymphocytes # (A) 1.7 k/uL (1.0-4.8); Lymphocytes % (A) 17 %; MCH 27.8 pg (25.0-35.0); MCHC 33.4 g/dL (31.0-37.0); MCV 83.4 fL (80.0-100.0); Mean Platelet Volume 7.8; Monocytes # (A) 0.6 k/uL (0-1.0); Monocytes % (A) 7 %; Neutrophils # (A) 7.2 k/uL (1.3-7.7); Neutrophils % (A) 74 %; Platelet Count 276 k/uL (150-450); RBC 3.92 m/uL (3.80-5.40); RDW 18.5 % (11.5-15.5); WBC 9.7 k/uL (3.8-10.6)
[2019-08-30 17:39] LABS: ALT 32 U/L (9-52); AST 56 U/L (14-36); African American GFR (CKD) >90 (>60 ml/min/1.73 sqM); Albumin 4.4 g/dL (3.5-5.0); Alkaline Phosphatase 94 U/L (38-126); Anion Gap 20 mmol/L; Blood Urea Nitrogen 13 mg/dL (7-17); Carbon Dioxide 23 mmol/L (22-30); Chloride 92 mmol/L (98-107); Creatine Kinase 100 U/L (30-135); D-Dimer 0.23 mg/L FEU (<0.60); Glucose 92 mg/dL (74-99); Non-African American GFR(CKD) >90 (>60 ml/min/1.73 sqM); Partial Thromboplastin Time 40.3 sec (22.0-30.0); Potassium 3.1 mmol/L (3.5-5.1); Prothrombin Time 73.1 sec (9.0-12.0); Sodium 135 mmol/L (137-145); Total Bilirubin 1.9 mg/dL (0.2-1.3); Total Protein 7.1 g/dL (6.3-8.2)
[2019-08-30 17:53] LABS: Magnesium 0.9 mg/dL (1.6-2.3)
--- NOTE | 2019-08-30 17:56 | XR ---
EXAMINATION TYPE: XR chest 2V DATE OF EXAM: 08/30/2019 COMPARISON: Chest x-ray and CTA chest March 31, 2019 HISTORY: Difficulty in breathing. History of transposition TECHNIQUE: Frontal and lateral views of the chest are obtained. FINDINGS: Overlying sternal wires are redemonstrated. There is no focal air space opacity, pleural e ffusion, or pneumothorax seen. The cardiac silhouette size remains enlarged. The osseous structure s are intact. IMPRESSION: Cardiomegaly without acute pulmonary process.
[2019-08-30 18:06] LABS: INR 7.5 (<1.2)
[2019-08-30] MEDS ORDERED: PHYTONADIONE ORAL 5 MG/5 ML ORAL.SYRG PO STA (18:09)
[2019-08-30] MEDS ORDERED: POTASSIUM CHLORIDE 20 MEQ in WATER FOR INJECTION 1 100ML.BAG IVPB STA (18:13)
[2019-08-30] MEDS: MAGNESIUM SULFATE-D5W PMX 1 GM in DEXTROSE/WATER 1 100ML.BAG IVPB SCH ×2 (18:29→19:41)
[2019-08-30] MEDS ORDERED: ONDANSETRON 4 MG/2 ML VIAL IVP PRN (19:14)
[2019-08-30] MEDS ORDERED: NALOXONE 0.4 MG/ML 1 ML VIAL IV PRN (19:14)
[2019-08-30] MEDS ORDERED: DILTIAZEM DRIP BOLUS FROM BAG 1 MG SOLN IV ONE (20:35)
--- NOTE | 2019-08-30 20:35 | ED ---
Medical Decision Making - Medical Decision Making Patient did develop A. fib with RVR with a variable rate she will be placed on IV Cardizem. - Lab Data Result diagrams: 08/30/19 17:06 08/30/19 17:06 Lab Results 08/30/19 08/30/19 08/30/19 Range/Units 17:06 17:06 17:06 WBC 9.7 (3.8-10.6) k/uL RBC 3.92 (3.80-5.40) m/uL Hgb 10.9 L (11.4-16.0) gm/dL Hct 32.7 L (34.0-46.0) % MCV 83.4 (80.0-100.0) fL MCH 27.8 (25.0-35.0) pg MCHC 33.4 (31.0-37.0) g/dL RDW 18.5 H (11.5-15.5) % Plt Count 276 (150-450) k/uL Neutrophils % 74 % Lymphocytes % 17 % Monocytes % 7 % Eosinophils % 0 % Basophils % 0 % Neutrophils # 7.2 (1.3-7.7) k/uL Lymphocytes # 1.7 (1.0-4.8) k/uL Monocytes # 0.6 (0-1.0) k/uL Eosinophils # 0.0 (0-0.7) k/uL Basophils # 0.0 (0-0.2) k/uL Anisocytosis Slight PT 73.1 H (9.0-12.0) sec INR 7.5 H* (<1.2) APTT 40.3 H (22.0-30.0) sec D-Dimer 0.23 (<0.60) mg/L FEU Sodium 135 L (137-145) mmol/L Potassium 3.1 L (3.5-5.1) mmol/L Chloride 92 L (98-107) mmol/L Carbon Dioxide 23 (22-30) mmol/L Anion Gap 20 mmol/L BUN 13 (7-17) mg/dL Creatinine 0.63 (0.52-1.04) mg/dL Est GFR (CKD-EPI)AfAm >90 (>60 ml/min/1.73 sqM) Est GFR (CKD-EPI)NonAf >90 (>60 ml/min/1.73 sqM) Glucose 92 (74-99) mg/dL Calcium 9.0 (8.4-10.2) mg/dL Magnesium 0.9 L* (1.6-2.3) mg/dL Total Bilirubin 1.9 H (0.2-1.3) mg/dL AST 56 H (14-36) U/L ALT 32 (9-52) U/L Alkaline Phosphatase 94 (38-126) U/L Creatine Kinase 100 (30-135) U/L Troponin I (0.000-0.034) ng/mL NT-Pro-B Natriuret Pep pg/mL Total Protein 7.1 (6.3-8.2) g/dL Albumin 4.4 (3.5-5.0) g/dL Stool Occult Blood (Negative) Serum Alcohol mg/dL Blood Type Blood Type Recheck Bld Type Recheck Status Antibody Screen Spec Expiration Date 08/30/19 08/30/19 08/30/19 Range/Units 17:06 17:06 17:27 WBC (3.8-10.6) k/uL RBC (3.80-5.40) m/uL Hgb (11.4-16.0) gm/dL Hct (34.0-46.0) % MCV (80.0-100.0) fL MCH (25.0-35.0) pg MCHC (31.0-37.0) g/dL RDW (11.5-15.5) % Plt Count (150-450) k/uL Neutrophils % % Lymphocytes % % Monocytes % % Eosinophils % % Basophils % % Neutrophils # (1.3-7.7) k/uL Lymphocytes # (1.0-4.8) k/uL Monocytes # (0-1.0) k/uL Eosinophils # (0-0.7) k/uL Basophils # (0-0.2) k/uL Anisocytosis PT (9.0-12.0) sec INR (<1.2) APTT (22.0-30.0) sec D-Dimer (<0.60) mg/L FEU Sodium (137-145) mmol/L Potassium (3.5-5.1) mmol/L Chloride (98-107) mmol/L Carbon Dioxide (22-30) mmol/L Anion Gap mmol/L BUN (7-17) mg/dL Creatinine (0.52-1.04) mg/dL Est GFR (CKD-EPI)AfAm (>60 ml/min/1.73 sqM) Est GFR (CKD-EPI)NonAf (>60 ml/min/1.73 sqM) Glucose (74-99) mg/dL Calcium (8.4-10.2) mg/dL Magnesium (1.6-2.3) mg/dL Total Bilirubin (0.2-1.3) mg/dL AST (14-36) U/L ALT (9-52) U/L Alkaline Phosphatase (38-126) U/L Creatine Kinase (30-135) U/L Troponin I 0.067 H* (0.000-0.034) ng/mL NT-Pro-B Natriuret Pep 1370 pg/mL Total Protein (6.3-8.2) g/dL Albumin (3.5-5.0) g/dL Stool Occult Blood Positive H (Negative) Serum Alcohol mg/dL Blood Type Blood Type Recheck Bld Type Recheck Status Antibody Screen Spec Expiration Date 08/30/19 08/30/19 Range/Units 18:53 18:53 WBC (3.8-10.6) k/uL RBC (3.80-5.40) m/uL Hgb (11.4-16.0) gm/dL Hct (34.0-46.0) % MCV (80.0-100.0) fL MCH (25.0-35.0) pg MCHC (31.0-37.0) g/dL RDW (11.5-15.5) % Plt Count (150-450) k/uL Neutrophils % % Lymphocytes % % Monocytes % % Eosinophils % % Basophils % % Neutrophils # (1.3-7.7) k/uL Lymphocytes # (1.0-4.8) k/uL Monocytes # (0-1.0) k/uL Eosinophils # (0-0.7) k/uL Basophils # (0-0.2) k/uL Anisocytosis PT (9.0-12.0) sec INR (<1.2) APTT (22.0-30.0) sec D-Dimer (<0.60) mg/L FEU Sodium (137-145) mmol/L Potassium (3.5-5.1) mmol/L Chloride (98-107) mmol/L Carbon Dioxide (22-30) mmol/L Anion Gap mmol/L BUN (7-17) mg/dL Creatinine (0.52-1.04) mg/dL Est GFR (CKD-EPI)AfAm (>60 ml/min/1.73 sqM) Est GFR (CKD-EPI)NonAf (>60 ml/min/1.73 sqM) Glucose (74-99) mg/dL Calcium (8.4-10.2) mg/dL Magnesium (1.6-2.3) mg/dL Total Bilirubin (0.2-1.3) mg/dL AST (14-36) U/L ALT (9-52) U/L Alkaline Phosphatase (38-126) U/L Creatine Kinase (30-135) U/L Troponin I (0.000-0.034) ng/mL NT-Pro-B Natriuret Pep pg/mL Total Protein (6.3-8.2) g/dL Albumin (3.5-5.0) g/dL Stool Occult Blood (Negative) Serum Alcohol 15 mg/dL Blood Type O Positive Blood Type Recheck No Previous Record Bld Type Recheck Status CABO Indicated Antibody Screen NEGATIVE Spec Expiration Date 09/02/2019 - 235 Disposition Clinical Impression: Upper GI bleed, Anemia, Coumadin toxicity, Hypomagnesemia syndrome, Hypokalemia, Elevated troponin, Rapid atrial fibrillation Disposition: ADMITTED IP TO THIS HOSP Condition: Fair
[2019-08-30] MEDS ORDERED: DILTIAZEM 125 MG in SODIUM CHLORIDE 0.9% 100 ML IV SCH (20:45)
[2019-08-30] MEDS: LORazepam 0.5 MG TAB PO PRN (22:05)
[2019-08-30] MEDS: PANTOPRAZOLE 40 MG/10 ML VIAL IV SCH (22:11)
[2019-08-30] MEDS: 0.9% NACL WITH KCL 20 MEQ/L 1,000 ML IV SCH (22:59)
[2019-08-31] MEDS: ACETAMINOPHEN TAB 325 MG TAB PO PRN ×2 (01:11→08:43)
[2019-08-31] MEDS: LORazepam 0.5 MG TAB PO PRN ×3 (05:21→22:20)
[2019-08-31] MEDS: ESCITALOPRAM 10 MG TAB PO SCH (08:42)
[2019-08-31] MEDS: PANTOPRAZOLE 40 MG/10 ML VIAL IV SCH ×2 (08:42→20:41)
[2019-08-31] MEDS: FUROSEMIDE 80 MG TAB PO SCH (08:42)
[2019-08-31] MEDS: DIGOXIN 125 MCG TAB PO SCH (08:42)
[2019-08-31] MEDS: SPIRONOLACTONE 25 MG TAB PO SCH (08:42)
[2019-08-31] MEDS: METOPROLOL SUCCINATE (ER) 100 MG TAB.ER.24H PO SCH (08:42)
[2019-08-31] MEDS: POTASSIUM CHLORIDE ER 20 MEQ TAB.ER PO SCH (08:43)
[2019-08-31 09:01] LABS: African American GFR (CKD) >90 (>60 ml/min/1.73 sqM); Anion Gap 8 mmol/L; Blood Urea Nitrogen 13 mg/dL (7-17); Calcium 7.7 mg/dL (8.4-10.2); Carbon Dioxide 25 mmol/L (22-30); Chloride 101 mmol/L (98-107); Glucose 90 mg/dL (74-99); INR 2.8 (<1.2); Magnesium 1.7 mg/dL (1.6-2.3); Non-African American GFR(CKD) >90 (>60 ml/min/1.73 sqM); Potassium 3.2 mmol/L (3.5-5.1); Prothrombin Time 26.7 sec (9.0-12.0); Sodium 134 mmol/L (137-145)
[2019-08-31] MEDS ORDERED: diphenhydrAMINE 50 MG CAP PO PRN (10:55)
[2019-08-31] MEDS: MAGNESIUM OXIDE 400 MG TAB PO SCH ×2 (11:45→20:40)
[2019-08-31] MEDS: CALCIUM CARB-VIT D 500MG-200UN 1 EACH TAB PO SCH ×2 (11:45→17:24)
[2019-08-31] MEDS: diphenhydrAMINE 25 MG CAP PO PRN ×2 (11:45→20:40)
[2019-08-31] MEDS: 0.9% NACL WITH KCL 20 MEQ/L 1,000 ML IV SCH ×2 (13:57→20:49)
--- NOTE | 2019-08-31 17:01 | PN ---
PROGRESS NOTE DATE OF SERVICE: 08/31/2019 CHIEF COMPLAINT: GI bleed. HISTORY OF PRESENT ILLNESS: This lady is doing well and vital signs have been stable. She has had no further bleeding. Her INR is down to 2.8. Her troponin is elevated as well as her BNP. She has had no shortness of breath. PHYSICAL EXAMINATION: Vital signs are normal. Chest is fairly clear. Occasional rales. Cardiac exam demonstrates an irregularly irregular rhythm. Abdomen is soft, nontender without masses. IMPRESSION: 1. Gastrointestinal bleed secondary to Coumadin excess. 2. Elevated troponin. 3. Elevated BNP. 4. Congenital heart disease. PLAN: 1. Echocardiogram. 2. Cardiology consult. 3. Continue to follow hemoglobin. MMODL / IJN: [id number] /
--- NOTE | 2019-08-31 20:28 | CONS ---
CONSULTATION Mrs. Wilcox is a 34-year-old female who presented to the emergency room with abdominal discomfort and inability to have bowel movement. 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 Surgery was done at that time at [facility]. She also has a history of paroxysmal atrial fibrillation and has been followed at [facility] in Congenital Heart Disease and underwent recent cardiac workup, according to her, and has been stable from the cardiac standpoint. She presented to the hospital with abdominal pain and evidence of GI bleeding and apparently she was without her medication for a few days. On presentation she had evidence of coagulopathy and subsequently she was in atrial fibrillation, rapid ventricular response and admitted. The patient denies any knowledge of the arrhythmia. She does not feel it. She has no significant dyspnea. No significant chest pain. She denies any dizziness or palpitation. She denies any peripheral edema. She is reasonably active physically. She has prior history of alcohol intake, although according to her she has cut down on her alcohol intake. 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 The patient is feeling well at this time. According to her, her INR in the past has been under good control. MEDICATIONS: Her medications at home include: 1. Coumadin 4 mg daily. 2. Aldactone 25 mg daily. 3. Potassium 40 mEq daily. 4. Metoprolol succinate 100 mg daily. 5. Ativan. 6. Lasix 40 mg daily. 7. Digoxin 0.125 mg daily. REVIEW OF SYSTEMS: RESPIRATORY SYSTEM: She has no recent wheezing. No cough. No history of documented obstructive lung disease. GI SYSTEM: She had the GI bleeding, the abdominal pain that has improved. SYSTEM: No dysuria or hematuria. NERVOUS SYSTEM: She denies any history of seizure. PHYSICAL EXAMINATION: She is a 34-year-old female, alert, oriented, in no apparent distress. Blood pressure 116/59 with a heart rate in the 90s. HEAD: Normocephalic. EYES: Sclerae anicteric. NECK: Good carotid upstroke. LUNGS: Clear to auscultation. HEART: Heart sounds are regular rate and rhythm. S1, S2 with extrasystole and a systolic murmur at the mid sternal border. No diastolic murmur appreciated. ABDOMEN: Soft, nontender. Positive bowel sounds. No organomegaly. EXTREMITIES: No edema. LAB DATA: Lab data revealed an INR on presentation of 7.5 and it is 2.8 now. The patient received vitamin K. Her potassium is 3.2. BUN and creatinine are 13 and 0.65. Her magnesium was 0.9 and troponin 0.067. NT proBNP 1370. She was heme-positive. Her hemoglobin is 10.9. She had in the past an episode where her hemoglobin was lower. Her troponin has been all within this range. The patient had a prior episode of low magnesium. Her chest x-ray shows no acute infiltrate. Her EKG shows atrial fibrillation with right bundle branch block and left axis deviation. IMPRESSION: 1. Abdominal discomfort with gastrointestinal bleeding with coagulopathy. 2. Paroxysmal atrial fibrillation. On examination she appears to be regular at this time. I will repeat the EKG. 3. 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 4. Hypomagnesemia noted in the past. 5. History of severe pulmonary hypertension. RECOMMENDATIONS: I will review the results of her repeat EKG. I will continue to hold Coumadin and see her INR. I will try to obtain the report of the recent workup at [facility]. Depending on her progress, further recommendations will be made. Thank you for this consult. Will follow with you. JACOBOL / IJN: [id number] /
--- NOTE | 2019-08-31 21:34 | HP ---
HISTORY AND PHYSICAL CHIEF COMPLAINT: Lower GI bleeding. 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 She is on Coumadin as well as other medications. She has been fairly noncompliant in obtaining her PT/INRs on a regular basis. She started to develop bright red rectal bleeding and came to the emergency room, where her INR was over 7. She had no abdominal pain, nausea, vomiting, fever, chills, lightheadedness, etc. REVIEW OF SYSTEMS: She had no other complaints. Past medical history, family and personal and social histories reveal she is NOT ALLERGIC TO ANY MEDICATION. She has been on Coumadin 4 mg once a day, Ativan 0.5 t.i.d. p.r.n., spironolactone 25 once a day, KCl 20 mEq twice a day, metoprolol 100 mg once a day, furosemide 40 mg twice a day, Lanoxin 0.125 once a day. She had her first open heart procedure at 3 months. She has had surgical repair of a right elbow fracture. She used to smoke, but does not any longer. She does abuse alcohol. PHYSICAL EXAMINATION: Blood pressure is 120/80, pulse 68, respirations 16, and she is afebrile. GENERAL: She appeared to be well developed, well nourished, in no acute distress. SKIN: Skin color is normal. Skin is warm and dry. LYMPH NODES: Lymph nodes are not enlarged. HEENT: Head, ears, eyes, nose, mouth and throat were normal. NECK: Neck veins are not distended. Thyroid is not enlarged. CHEST: Chest is clear. CARDIAC: Cardiac exam demonstrates what sounds like atrial fibrillation. ABDOMEN: The abdomen is soft and nontender and there are no masses. Bowel sounds are present. EXTREMITIES: Extremities are normal. NEUROLOGICAL: Neurologically, she is intact. IMPRESSION: 1. Lower gastrointestinal bleed. 2. Hyperprothrombinemia. 3. Congenital heart disease. 4. Cardiac arrhythmia. PLAN: 1. Bedrest. 2. IV fluids. 3. Monitor vital signs and hemoglobin. 4. Consult Cardiology because of atrial fibrillation. MMODL / IJN: [id number] /
[2019-09-01 03:22] VITALS: TEMP 98.1
[2019-09-01] MEDS: diphenhydrAMINE 25 MG CAP PO PRN (03:45)
[2019-09-01] MEDS: 0.9% NACL WITH KCL 20 MEQ/L 1,000 ML IV SCH (03:46)
[2019-09-01] MEDS: CALCIUM CARB-VIT D 500MG-200UN 1 EACH TAB PO SCH ×2 (06:24→17:10)
[2019-09-01] MEDS: LORazepam 0.5 MG TAB PO PRN ×2 (06:29→14:41)
[2019-09-01 06:45] LABS: Prothrombin Time 19.3 sec (9.0-12.0)
[2019-09-01 06:52] LABS: African American GFR (CKD) >90 (>60 ml/min/1.73 sqM); Anion Gap 7 mmol/L; Blood Urea Nitrogen 10 mg/dL (7-17); Calcium 8.2 mg/dL (8.4-10.2); Carbon Dioxide 24 mmol/L (22-30); Chloride 105 mmol/L (98-107); Glucose 75 mg/dL (74-99); Non-African American GFR(CKD) >90 (>60 ml/min/1.73 sqM); Potassium 3.7 mmol/L (3.5-5.1); Sodium 136 mmol/L (137-145)
[2019-09-01] MEDS: PANTOPRAZOLE 40 MG/10 ML VIAL IV SCH (09:46)
[2019-09-01] MEDS: METOPROLOL SUCCINATE (ER) 100 MG TAB.ER.24H PO SCH (09:46)
[2019-09-01] MEDS: DIGOXIN 125 MCG TAB PO SCH (09:46)
[2019-09-01] MEDS: FUROSEMIDE 80 MG TAB PO SCH (09:46)
[2019-09-01] MEDS: SPIRONOLACTONE 25 MG TAB PO SCH (09:46)
[2019-09-01] MEDS: POTASSIUM CHLORIDE ER 20 MEQ TAB.ER PO SCH (09:46)
[2019-09-01] MEDS: MAGNESIUM OXIDE 400 MG TAB PO SCH (09:47)
[2019-09-01] MEDS: ESCITALOPRAM 10 MG TAB PO SCH (09:47)
[2019-09-01 09:49] LABS: Anisocytosis Slight; HCT 27.2 % (34.0-46.0); Hypochromasia Marked; MCH 28.7 pg (25.0-35.0); MCHC 32.1 g/dL (31.0-37.0); Mean Platelet Volume 9.4; Platelet Count 184 k/uL (150-450); RBC 3.04 m/uL (3.80-5.40); RDW 17.7 % (11.5-15.5); WBC 5.8 k/uL (3.8-10.6)
[2019-09-01 09:52] LABS: HGB 8.7 gm/dL (11.4-16.0); MCV 89.5 fL (80.0-100.0)
--- NOTE | 2019-09-01 10:54 | P.PN ---
Subjective Progress Note Date: 09/01/19 This is a 34-year-old female who presented to the hospital initially with abdominal discomfort, she has a known history of congenital heart disease and underwent surgical repair at the age of 5 for transposition of great vessels. Surgery at that time was performed at [facility]. She also has a history of paroxysmal atrial fibrillation and is followed at the [facility] in the congenital heart disease.. She presented as mentioned with symptoms of abdominal discomfort and evidence of GI bleeding. On presentation here she was in A. fib with RVR. Currently in normal sinus rhythm. Patient does have history of prior excessive alcohol intake however she states that she has cut down considerably. Patient also had an echo performed in January of this year which revealed an ejection fraction of 50-60% with paradoxical septal motion with possible perimembranous VSD, moderate TR, and severe pulmonary hypertension. The patient was seen and examined this morning, overall she feels well. Denies any further abdominal discomfort. Remaining in normal sinus rhythm. Blood pressure 102/60 with a heart rate in the 80s, 99% on room air. White blood cell count 5.8, hemoglobin 8.7, platelet count 184. Pro time today is 19.3 with an INR of 2.0. Sodium 136, potassium 3.7, BUN 10 and creatinine 0.6, magnesium 1.6. Objective - Vital Signs Vital signs: Vital Signs Temp 98.1 F 09/01/19 03:19 Pulse 83 09/01/19 03:19 Resp 18 09/01/19 03:19 BP 102/67 09/01/19 03:19 Pulse Ox 99 09/01/19 03:19 Intake & Output 08/31/19 09/01/19 09/01/19 18:59 06:59 18:59 Intake Total 720 780 222 Balance 720 780 222 Weight 65.4 kg Intake: Oral 720 780 222 Other: Voiding Method Toilet Toilet # Voids 2 1 - Exam PHYSICAL EXAMINATION: GENERAL: 34-year-old female in no acute distress at the time of my examination HEENT: Head is atraumatic, normocephalic. Pupils equal, round. Sclera anicteric. Conjunctiva are clear. Mucous membranes of the mouth are moist. Neck is supple. There is no elevated jugular venous pressure. No carotid bruit is heard. HEART EXAMINATION: Heart S1 and S2 systolic murmur is heard CHEST EXAMINATION: Lungs are clear to auscultation and precussion. No chest wall tenderness is noted on palpation or with deep breathing. ABDOMEN: Soft, nontender. Bowel sounds are heard. No organomegaly noted. EXTREMITIES: 2+ peripheral pulses with no evidence of peripheral edema and no calf tenderness noted. NEUROLOGIC patient is awake, alert and oriented 3 . . - Labs CBC & Chem 7: 09/01/19 06:04 09/01/19 06:04 Labs: Abnormal Lab Results - Last 24 Hours (Table) 09/01/19 09/01/19 09/01/19 Range/Units 06:04 06:04 06:04 RBC 3.04 L (3.80-5.40) m/uL Hgb 8.7 L D (11.4-16.0) gm/dL Hct 27.2 L (34.0-46.0) % RDW 17.7 H (11.5-15.5) % PT 19.3 H (9.0-12.0) sec INR 2.0 H (<1.2) Sodium 136 L (137-145) mmol/L Calcium 8.2 L (8.4-10.2) mg/dL Assessment and Plan Plan: Impression and plan #1 abdominal discomfort with GI bleeding with associated coagulopathy #2 paroxysmal atrial fibrillation, remaining in normal sinus rhythm #3 history of congenital heart disease with transposition of great vessels #4 hypomagnesemia #5 history of severe pulmonary hypertension Plan From cardiology's perspective, patient may be able to be discharged home, she does have a follow-up appointment at [facility] which she has been instructed to keep. DNP note has been reviewed, I agree with a documented findings and plan of care. Patient was seen and examined.
[2019-09-01 13:01] VITALS: BP 107/56; PULSE 85; RESP 14
[2019-09-01] MEDS ORDERED: WARFARIN 2 MG TAB PO SCH (18:00)
--- NOTE | 2019-09-01 22:54 | DS ---
DISCHARGE SUMMARY CHIEF COMPLAINT: GI bleed. HISTORY OF PRESENT ILLNESS AND PHYSICAL EXAMINATION: Details of this lady's history and physical can be found in the initial workup. LABORATORY STUDIES: While she was in the hospital she had laboratory studies, details of which can be found in the laboratory section of her chart. COURSE IN THE HOSPITAL: After admission she was placed on bedrest, started on intravenous fluids, and she had no further bleeding. INR came down into therapeutic range. She was doing well and it was felt that she could go home. She will go home on 4 mg Coumadin a day and she will be seen in the office in a day or two. FINAL DIAGNOSES: 1. Gastrointestinal bleed. 2. Hyperprothrombinemia. 3. Congenital heart disease. OPERATIONS: None. CONSULTATIONS: None. She is improved. MMESTELAL / CARMENN: [id number] /
== END 2019-09-01 17:34 | disposition home or self-care (01) | DRG 813 ==
LOC: EC 16:10 → 2SICU 19:14 → 3SCARD 19:14 → UNDOADMIN 19:14 → 3SCARD 21:17
PROVIDERS: ADMIT Family Medicine; ATTEND Family Medicine
DX: D68.32 Hemorrhagic disorder due to extrinsic circulating anticoagulants (principal); Q20.3 Discordant ventriculoarterial connection; K92.2 Gastrointestinal hemorrhage, unspecified; D64.9 Anemia, unspecified; E83.42 Hypomagnesemia; E87.6 Hypokalemia; I27.20 Pulmonary hypertension, unspecified; I48.0 Paroxysmal atrial fibrillation; T45.515A Adverse effect of anticoagulants, initial encounter; Z79.01 Long term (current) use of anticoagulants; Z91.19 Patient's noncompliance with other medical treatment and regimen; Z91.041 Radiographic dye allergy status; Z79.899 Other long term (current) drug therapy
CPT/HCPCS: 36415; 71046; 80048; 80053; 80320; 81025; 82272; 82550; 83735; 83880; 84484; 85025; 85027; 85379; 85610; 85730; 86850; 86900; 86901; 93005; 96361; 96365; 96366; 96368; 96375; 96376; 99291

== ENCOUNTER 2019-11-15 21:42 | Emergency (ER) | payer OTHER ==
[2019-11-15 21:51] VITALS: BP 108/59; PULSE 95; RESP 18; TEMP 97.5
[2019-11-15] MEDS ORDERED: OXYMETAZOLINE 0.05% NASL SPRAY 1 SPRAY BOTTLE NASAL STA (22:10)
[2019-11-15] MEDS ORDERED: ALPRAZolam 1 MG TAB PO STA (22:16)
--- NOTE | 2019-11-15 22:29 | ED ---
ENT HPI - General Chief complaint: ENT Stated complaint: Nosebleed Time Seen by Provider: 11/15/19 22:10 Source: EMS Mode of arrival: EMS Limitations: no limitations - History of Present Illness Initial comments: Patient is a 34-year-old female presenting to emergency Department with a chief complaint of a nosebleed. Patient states she was sleeping today, when she woke up she noticed blood along her right arm. Patient did have a severe panic attack and contacted EMS. Patient states the bleeding was mostly located in the right nostril. States no history of epistaxis. Does report sleeping next to a fan every night. Patient does have A. fib and takes blood thinners. Patient does have a history of anemia was discharged from the hospital about one week ago for. Denies any light headedness, dizziness, blurry vision, chest pain, shortness of breath, abdominal pain. Denies taking medications alleviate his symptoms. Denies hematuria, hematochezia or melena. - Related Data Home Medications Medication Instructions Recorded Confirmed Digoxin [Digitek] 125 mcg PO DAILY 12/19/17 11/04/19 Spironolactone [Aldactone] 25 mg PO DAILY 12/19/17 11/04/19 Metoprolol Succinate (ER) [Toprol 100 mg PO DAILY 03/19/18 11/04/19 XL] Furosemide [Lasix] 80 mg PO DAILY 03/19/19 11/04/19 Potassium Chloride [Klor-Con 20] 40 meq PO BID 03/19/19 11/04/19 LORazepam [Ativan] 0.5 mg PO TID PRN 03/31/19 11/04/19 Loratadine [Claritin] 10 mg PO DAILY 11/04/19 11/04/19 Previous Rx's Medication Instructions Recorded Pantoprazole [Protonix] 40 mg PO AC-BID #60 tablet. 11/10/19 Warfarin [Coumadin] 4 mg PO DAILY@1800 #10 tab 11/10/19 Allergies Allergy/AdvReac Type Severity Reaction Status Date / Time Iodinated Contrast Media AdvReac TWITCHING Verified 11/04/19 14:16 [Iodinated Contrast- Oral and IV Dye] Review of Systems ROS Statement: Those systems with pertinent positive or pertinent negative responses have been documented in the HPI. ROS Other: All systems not noted in ROS Statement are negative. 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 History of Any Multi-Drug Resistant Organisms: ESBL Date of last positivie culture/infection: 02/25/17 ESBL-Klebsiella MDRO Source:: Urine Past Surgical History: No Surgical Hx Reported Additional Past Surgical History / Comment(s): open heart surg for transposition of great arteries, CARDIOVERTED FOR A- FIB twice Past Anesthesia/Blood Transfusion Reactions: No Reported Reaction Past Psychological History: Anxiety Smoking Status: Former smoker Past Alcohol Use History: None Reported Past Drug Use History: None Reported - Past Family History Mother Family Medical History: No Reported History Additional Family Medical History / Comment(s): Mother is healthy Father Family Medical History: No Reported History Additional Family Medical History / Comment(s): Father is healthy General Exam Limitations: no limitations General appearance: alert, in no apparent distress Head exam: Present: atraumatic, normocephalic, normal inspection Eye exam: Present: normal appearance Pupils: Present: normal accommodation ENT exam: Present: normal exam, normal oropharynx (Residual blood noted in the right nostril. No active bleeding observed. Not able to detect a source of the bleeding.), mucous membranes moist, TM's normal bilaterally, normal external ear exam Neck exam: Present: normal inspection, full ROM Respiratory exam: Present: normal lung sounds bilaterally Cardiovascular Exam: Present: regular rate, normal rhythm, normal heart sounds Extremities exam: Present: normal inspection, full ROM Back exam: Present: normal inspection, full ROM Neurological exam: Present: alert, oriented X3 Psychiatric exam: Present: normal affect, normal mood Skin exam: Present: warm, dry, intact, normal color Course Vital Signs 11/15/19 21:44 Temperature 97.5 F L Pulse Rate 95 Respiratory 18 Rate Blood Pressure 108/59 Medical Decision Making - Medical Decision Making Patient is a 34-year-old female with history of severe anxiety and A. fib presenting to emergency Department with a chief complaint of epistaxis. The nosebleed occurred about 2 hours prior to ED arrival. Patient brought to the ED via EMS. She woke up with a right-sided nosebleed. Physical examination I cannot determine the source of the bleed. There was no residual blood noted on the right nostril. On initial evaluation patient was not actively bleeding. Patient did have a no splint on. I did also apply Afrin in bilateral nostrils along with a clamp. On reevaluation no bleeding was observed. CBC obtained shows improvement in her hemoglobin which is currently at 9.7. She has an INR of 2.9 which is within the therapeutic range of Coumadin. CMP is unremarkable. I suspect the bleed is secondary to dry mucous membranes because she was sleeping next to a heavy ventilatory area along with low moisture in her ear. Patient was given anxiolytics in the ED. I applied bacitracin on her nausea advised the patient to apply Vaseline every morning and night before going to bed. Patient was also advised to apply pressure for at least 30 minutes next time she develops a nosebleed. Return parameters were thoroughly discussed with patient was understanding and agreeable. Patient discussed with physician. - Lab Data Result diagrams: 11/15/19 21:50 11/15/19 21:50 Lab Results 11/15/19 11/15/19 11/15/19 Range/Units 21:50 21:50 21:50 WBC 8.1 (3.8-10.6) k/uL RBC 4.20 (3.80-5.40) m/uL Hgb 9.7 L D (11.4-16.0) gm/dL Hct 33.7 L (34.0-46.0) % MCV 80.2 (80.0-100.0) fL MCH 23.1 L (25.0-35.0) pg MCHC 28.9 L (31.0-37.0) g/dL RDW 24.4 H (11.5-15.5) % Plt Count 537 H (150-450) k/uL Neutrophils % (Manual) 57 % Band Neutrophils % 1 % Lymphocytes % (Manual) 32 % Monocytes % (Manual) 9 % Eosinophils % (Manual) 1 % Neutrophils # (Manual) 4.60 (1.3-7.7) k/uL Lymphocytes # (Manual) 2.59 (1.0-4.8) k/uL Monocytes # (Manual) 0.73 (0-1.0) k/uL Eosinophils # (Manual) 0.08 (0-0.7) k/uL Nucleated RBCs 0 (0-0) /100 WBC Manual Slide Review Performed Hypochromasia Marked Poikilocytosis Moderate Poikilocytosis (manual Present Anisocytosis Marked Anisocytosis (manual) Present Microcytosis Moderate PT 28.0 H (9.0-12.0) sec INR 2.9 H (<1.2) APTT 34.1 H (22.0-30.0) sec Sodium 148 H (137-145) mmol/L Potassium 3.4 L (3.5-5.1) mmol/L Chloride 107 (98-107) mmol/L Carbon Dioxide 28 (22-30) mmol/L Anion Gap 13 mmol/L BUN 4 L (7-17) mg/dL Creatinine 0.64 (0.52-1.04) mg/dL Est GFR (CKD-EPI)AfAm >90 (>60 ml/min/1.73 sqM) Est GFR (CKD-EPI)NonAf >90 (>60 ml/min/1.73 sqM) Glucose 92 (74-99) mg/dL Calcium 9.1 (8.4-10.2) mg/dL Total Bilirubin 0.9 (0.2-1.3) mg/dL AST 81 H (14-36) U/L ALT 23 (4-34) U/L Alkaline Phosphatase 88 (38-126) U/L Total Protein 7.2 (6.3-8.2) g/dL Albumin 4.1 (3.5-5.0) g/dL Disposition Clinical Impression: Epistaxis not due to trauma, Anterior epistaxis Disposition: HOME SELF-CARE Condition: Stable Instructions (If sedation given, give patient instructions): Nosebleed (ED) Additional Instructions: Do not sleep next to Highly ventilated areas. Apply Vaseline in both nostrils in the morning and at night. Follow-up with your GI specialist. Return to emergency department if symptoms worsen. Is patient prescribed a controlled substance at d/c from ED?: No Referrals: Rodney Wilson MD [Primary Care Provider] - 1-2 days Time of Disposition: 00:56
[2019-11-15] MEDS ORDERED: LORazepam 2 MG/ML INJ IV STA (23:22)
[2019-11-15 23:40] LABS: ALT 23 U/L (4-34); AST 81 U/L (14-36); African American GFR (CKD) >90 (>60 ml/min/1.73 sqM); Albumin 4.1 g/dL (3.5-5.0); Alkaline Phosphatase 88 U/L (38-126); Anion Gap 13 mmol/L; Blood Urea Nitrogen 4 mg/dL (7-17); Calcium 9.1 mg/dL (8.4-10.2); Carbon Dioxide 28 mmol/L (22-30); Chloride 107 mmol/L (98-107); Glucose 92 mg/dL (74-99); INR 2.9 (<1.2); Non-African American GFR(CKD) >90 (>60 ml/min/1.73 sqM); Partial Thromboplastin Time 34.1 sec (22.0-30.0); Potassium 3.4 mmol/L (3.5-5.1); Sodium 148 mmol/L (137-145); Total Bilirubin 0.9 mg/dL (0.2-1.3); Total Protein 7.2 g/dL (6.3-8.2)
[2019-11-15 23:48] LABS: Anisocytosis Marked; HCT 33.7 % (34.0-46.0); Hypochromasia Marked; MCH 23.1 pg (25.0-35.0); MCHC 28.9 g/dL (31.0-37.0); MCV 80.2 fL (80.0-100.0); Mean Platelet Volume 8.1; Microcytosis Moderate; Platelet Count 537 k/uL (150-450); Poikilocytosis Moderate; RDW 24.4 % (11.5-15.5); WBC 8.1 k/uL (3.8-10.6)
[2019-11-15 23:54] LABS: HGB 9.7 gm/dL (11.4-16.0)
[2019-11-16 00:34] LABS: Band Neutrophils % 1 %; Eosinophils # (M) 0.08 k/uL (0-0.7); Lymphocytes # (M) 2.59 k/uL (1.0-4.8); Monocytes # (M) 0.73 k/uL (0-1.0); Neutrophils % (M) 57 %; Nucleated Red Blood Cells 0 /100 WBC (0-0); Total Cells Counted 100
[2019-11-16 00:35] LABS: Anisocytosis (M) Present; Poikilocytosis (M) Present
== END 2019-11-16 01:20 | disposition home or self-care (01) ==
LOC: EC 21:42
DX: R04.0 Epistaxis (principal); I48.91 Unspecified atrial fibrillation; F41.0 Panic disorder [episodic paroxysmal anxiety]; I50.9 Heart failure, unspecified; Z86.2 Personal history of diseases of the blood and blood-forming organs and certain disorders involving the immune mechanism; Z87.891 Personal history of nicotine dependence; Z98.890 Other specified postprocedural states; Z79.899 Other long term (current) drug therapy
CPT/HCPCS: 36415; 80053; 85025; 85610; 85730; 99284; 96374; J2060

== ENCOUNTER 2019-11-17 04:13 | Emergency (ER) | payer OTHER ==
[2019-11-17 04:19] VITALS: TEMP 98.1
[2019-11-17] MEDS: LORazepam 1 MG TAB PO STA ×2 (05:18→05:20)
[2019-11-17 05:40] LABS: Anisocytosis Marked; HGB 9.1 gm/dL (11.4-16.0); Hypochromasia Marked; MCH 22.9 pg (25.0-35.0); MCHC 29.3 g/dL (31.0-37.0); MCV 78.1 fL (80.0-100.0); Mean Platelet Volume 7.9; Microcytosis Marked; Platelet Count 473 k/uL (150-450); Poikilocytosis Slight; RBC 3.97 m/uL (3.80-5.40); RDW 24.4 % (11.5-15.5); WBC 7.1 k/uL (3.8-10.6)
[2019-11-17 06:26] LABS: INR 2.9 (<1.2)
--- NOTE | 2019-11-17 06:29 | ED ---
ENT HPI - General Chief complaint: ENT Stated complaint: Nosebleed Time Seen by Provider: 11/17/19 04:20 Source: patient, EMS Mode of arrival: EMS Limitations: no limitations - History of Present Illness Initial comments: He patient is a 34-year-old female with past medical history of atrial fibrillation, heart failure and transposition of great vessels who presents emergency room with reported epistaxis. She states that she was asleep when she awoke to her nose bleeding. States that she has a history of anxiety and panic attacks. States she is concerned because she is anemic and was recently admitted for GI bleed where she received a transfusion. She is on anticoagulation. EMS arrived and could not identify any bleeding. The patient was so requesting transport to the hospital. Patient states the bleeding is coming out of her left nare. She was seen in the emergency department yesterday for similar complaint. Laboratory studies at that time demonstrated a stable hemoglobin with an INR within therapeutic range. The patient denies any blunt trauma to the face. There are no alleviating, precipitating or modifying factors - Related Data Home Medications Medication Instructions Recorded Confirmed Digoxin [Digitek] 125 mcg PO DAILY 12/19/17 11/17/19 Spironolactone [Aldactone] 25 mg PO DAILY 12/19/17 11/17/19 Metoprolol Succinate (ER) [Toprol 100 mg PO DAILY 03/19/18 11/17/19 XL] Furosemide [Lasix] 80 mg PO DAILY 03/19/19 11/17/19 Potassium Chloride [Klor-Con 20] 40 meq PO BID 03/19/19 11/17/19 LORazepam [Ativan] 0.5 mg PO TID PRN 03/31/19 11/17/19 Loratadine [Claritin] 10 mg PO DAILY 11/04/19 11/17/19 Previous Rx's Medication Instructions Recorded Pantoprazole [Protonix] 40 mg PO AC-BID #60 tablet. 11/10/19 Warfarin [Coumadin] 4 mg PO DAILY@1800 #10 tab 11/10/19 Allergies Allergy/AdvReac Type Severity Reaction Status Date / Time Iodinated Contrast Media AdvReac TWITCHING Verified 11/17/19 05:07 [Iodinated Contrast- Oral and IV Dye] Review of Systems ROS Statement: Those systems with pertinent positive or pertinent negative responses have been documented in the HPI. ROS Other: All systems not noted in ROS Statement are negative. Past Medical History Past Medical History: Atrial Fibrillation, Heart Failure Additional Past Medical History / Comment(s): Afib with RVR, pt had transposition of great arteries as an , hypomagnesemia. History of Any Multi-Drug Resistant Organisms: ESBL Date of last positivie culture/infection: 02/25/17 ESBL-Klebsiella MDRO Source:: Urine Past Surgical History: No Surgical Hx Reported Additional Past Surgical History / Comment(s): open heart surg for transposition of great arteries, CARDIOVERTED FOR A- FIB twice Past Anesthesia/Blood Transfusion Reactions: No Reported Reaction Past Psychological History: Anxiety Smoking Status: Former smoker Past Alcohol Use History: None Reported Past Drug Use History: None Reported - Past Family History Mother Family Medical History: No Reported History Additional Family Medical History / Comment(s): Mother is healthy Father Family Medical History: No Reported History Additional Family Medical History / Comment(s): Father is healthy General Exam Limitations: no limitations General appearance: alert, in no apparent distress, anxious Head exam: Present: atraumatic, normocephalic, normal inspection Eye exam: Present: normal appearance, PERRL, EOMI. Absent: scleral icterus, conjunctival injection, periorbital swelling ENT exam: Present: normal exam, mucous membranes moist, other (no bleeding from either nare. No mucosal erythema. No blood in the posterior pharynx) Neck exam: Present: normal inspection. Absent: tenderness, meningismus, lymphadenopathy Respiratory exam: Present: normal lung sounds bilaterally. Absent: respiratory distress, wheezes, rales, rhonchi, stridor Course Vital Signs 11/17/19 11/17/19 11/17/19 04:17 04:28 06:44 Temperature 98.1 F Pulse Rate 90 79 74 Respiratory 20 20 18 Rate Blood Pressure 94/59 101/61 99/62 O2 Sat by Pulse 100 95 96 Oximetry Medical Decision Making - Medical Decision Making Upon the patient is placed in room 9. A thorough history and physical exam is performed. Physical exam does not reveal any signs of acute epistaxis. No signs of clotted blood within the patient's nare. Posterior oropharynx is clear. Patient is insistent that she did have a nosebleed at home. She is requesting repeat laboratory studies to ensure that her INR and hemoglobin have been stable. Studies were performed which demonstrated hemoglobin of 9.1 and INR 2.9. I did discuss this with the patient. I instructed her that she should continue with Vaseline inside the nose and invest in a humidifier. The patient should follow-up with an ear nose and throat doctor if she continues to have epistaxis. Return to the emergency room for any new or worsening symptoms. The patient was in agreement treatment plan discharged home stable condition - Lab Data Result diagrams: 11/17/19 05:30 Lab Results 11/17/19 11/17/19 Range/Units 05:30 05:30 WBC 7.1 (3.8-10.6) k/uL RBC 3.97 (3.80-5.40) m/uL Hgb 9.1 L (11.4-16.0) gm/dL Hct 31.0 L (34.0-46.0) % MCV 78.1 L (80.0-100.0) fL MCH 22.9 L (25.0-35.0) pg MCHC 29.3 L (31.0-37.0) g/dL RDW 24.4 H (11.5-15.5) % Plt Count 473 H (150-450) k/uL Hypochromasia Marked Poikilocytosis Slight Anisocytosis Marked Microcytosis Marked PT 28.0 H (9.0-12.0) sec INR 2.9 H (<1.2) Disposition Clinical Impression: Epistaxis not due to trauma Disposition: HOME SELF-CARE Condition: Stable Instructions (If sedation given, give patient instructions): Nosebleed (ED) Additional Instructions: Please follow-up with your doctor in regards to your reported nosebleeds. Is patient prescribed a controlled substance at d/c from ED?: No Referrals: Rodney Wilson MD [Primary Care Provider] - 1-2 days Time of Disposition: 06:29
[2019-11-17 06:48] VITALS: BP 99/62; PULSE 74; RESP 18
== END 2019-11-17 07:44 | disposition home or self-care (01) ==
LOC: EC 04:13
DX: R04.0 Epistaxis (principal); I48.91 Unspecified atrial fibrillation; D64.9 Anemia, unspecified; F41.0 Panic disorder [episodic paroxysmal anxiety]; I50.9 Heart failure, unspecified; Z79.899 Other long term (current) drug therapy; Z79.01 Long term (current) use of anticoagulants; Z87.891 Personal history of nicotine dependence; Z91.041 Radiographic dye allergy status; Z87.74 Personal history of (corrected) congenital malformations of heart and circulatory system
CPT/HCPCS: 36415; 85027; 85610; 99283

== ENCOUNTER 2019-12-01 21:13 | Inpatient (IN) | payer OTHER ==
[2019-12-01] MEDS ORDERED: LORazepam 1 MG TAB PO STA (21:48)
--- NOTE | 2019-12-01 21:49 | ED ---
Arrhythmia/Palpitations HPI - General Chief Complaint: Arrhythmia/Palpitations Stated Complaint: afib Time Seen by Provider: 12/01/19 21:26 Source: patient Mode of arrival: wheelchair Limitations: no limitations - History of Present Illness Initial Comments: This patient is a 34-year-old woman with history of paroxysmal atrial fibrillation and also of anxiety who presents with complaint that a little before 7 PM she started feeling very anxious, like she had a rapid heart rate, and a little short of breath. The patient states that she was relaxing with her mother at the time. The patient does state that she did run out of her Ativan which she usually takes every day on Wednesday or Wednesday. Patient denies chest pain, diaphoresis, nausea or vomiting, lightheadedness or syncope. She has not had any leg pain or swelling. MD Complaint: "heart racing" Onset/Timin -: hour(s) Context: occurred during rest Arrhythmia History: atrial fibrillation Associated Symptoms: shortness of breath, anxiety - Related Data Home Medications Medication Instructions Recorded Confirmed Digoxin [Digitek] 125 mcg PO DAILY 12/19/17 11/17/19 Spironolactone [Aldactone] 25 mg PO DAILY 12/19/17 11/17/19 Metoprolol Succinate (ER) [Toprol 100 mg PO DAILY 03/19/18 11/17/19 XL] Furosemide [Lasix] 80 mg PO DAILY 03/19/19 11/17/19 Potassium Chloride [Klor-Con 20] 40 meq PO BID 03/19/19 11/17/19 LORazepam [Ativan] 0.5 mg PO TID PRN 03/31/19 11/17/19 Loratadine [Claritin] 10 mg PO DAILY 11/04/19 11/17/19 Previous Rx's Medication Instructions Recorded Pantoprazole [Protonix] 40 mg PO AC-BID #60 tablet. 11/10/19 Warfarin [Coumadin] 4 mg PO DAILY@1800 #10 tab 11/10/19 Allergies Allergy/AdvReac Type Severity Reaction Status Date / Time Iodinated Contrast Media AdvReac TWITCHING Verified 12/01/19 21:24 [Iodinated Contrast- Oral and IV Dye] Review of Systems ROS Statement: Those systems with pertinent positive or pertinent negative responses have been documented in the HPI. ROS Other: All systems not noted in ROS Statement are negative. Constitutional: Denies: fever, chills Respiratory: Reports: as per HPI, dyspnea. Denies: cough Cardiovascular: Reports: palpitations. 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 History of Any Multi-Drug Resistant Organisms: ESBL Date of last positivie culture/infection: 02/25/17 ESBL-Klebsiella MDRO Source:: Urine Past Surgical History: No Surgical Hx Reported Additional Past Surgical History / Comment(s): open heart surg for transposition of great arteries, CARDIOVERTED FOR A- FIB twice Past Anesthesia/Blood Transfusion Reactions: No Reported Reaction Past Psychological History: Anxiety Smoking Status: Former smoker Past Alcohol Use History: None Reported Past Drug Use History: None Reported - Past Family History Mother Family Medical History: No Reported History Additional Family Medical History / Comment(s): Mother is healthy Father Family Medical History: No Reported History Additional Family Medical History / Comment(s): Father is healthy General Exam Limitations: no limitations General appearance: alert, in no apparent distress Head exam: Present: atraumatic, normocephalic Eye exam: Present: normal appearance. Absent: scleral icterus, conjunctival injection ENT exam: Present: normal oropharynx Respiratory exam: Present: normal lung sounds bilaterally. Absent: respiratory distress, wheezes, rales, rhonchi, stridor Cardiovascular Exam: Present: regular rate, normal rhythm, systolic murmur. Absent: diastolic murmur, rubs, gallop GI/Abdominal exam: Present: soft. Absent: distended, tenderness, guarding, rebound, rigid, mass, pulsatile mass Extremities exam: Present: normal inspection, normal capillary refill. Absent: pedal edema, calf tenderness Back exam: Present: normal inspection. Absent: CVA tenderness (R), CVA tenderness (L) Neurological exam: Present: alert Skin exam: Present: warm, dry, intact, normal color. Absent: rash Course Vital Signs 12/01/19 12/01/19 12/02/19 21:21 23:07 02:07 Temperature 97.8 F Pulse Rate 95 91 82 Respiratory 22 18 18 Rate Blood Pressure 114/78 110/65 110/56 O2 Sat by Pulse 100 96 98 Oximetry EKG Findings - EKG Results: EKG: interpreted by ERMD, sinus rhythm (Rate 92 bpm), normal axis, normal ST/T - Blocks, Bearden, Hypertrophy, ST Abn: AV and intraventricular conduction: right bundle branch block (fixed/intermittent, complete/incomplete) Medical Decision Making - Medical Decision Making Patient is a 34-year-old woman with anxiety, tremulousness, manifesting early withdrawal despite having alcohol level approaching 300. We'll admit patient for impending DTs. Case discussed with Dr. Wilson, who will admit with the [facility] protocol. - Lab Data Result diagrams: 12/01/19 21:53 12/01/19 21:53 Lab Results 12/01/19 12/01/19 12/01/19 Range/Units 21:53 21:53 21:53 WBC 10.5 (3.8-10.6) k/uL RBC 4.46 (3.80-5.40) m/uL Hgb 10.1 L (11.4-16.0) gm/dL Hct 33.8 L (34.0-46.0) % MCV 75.8 L (80.0-100.0) fL MCH 22.6 L (25.0-35.0) pg MCHC 29.8 L (31.0-37.0) g/dL RDW 21.5 H (11.5-15.5) % Plt Count 659 H (150-450) k/uL Neutrophils % (Manual) 56 % Lymphocytes % (Manual) 35 % Monocytes % (Manual) 8 % Eosinophils % (Manual) 1 % Neutrophils # (Manual) 5.88 (1.3-7.7) k/uL Lymphocytes # (Manual) 3.68 (1.0-4.8) k/uL Monocytes # (Manual) 0.84 (0-1.0) k/uL Eosinophils # (Manual) 0.11 (0-0.7) k/uL Nucleated RBCs 0 (0-0) /100 WBC Manual Slide Review Performed Polychromasia Present Hypochromasia Marked Poikilocytosis Slight Anisocytosis Moderate Microcytosis Moderate PT 21.0 H (9.0-12.0) sec INR 2.2 H (<1.2) APTT 29.2 (22.0-30.0) sec Sodium 139 (137-145) mmol/L Potassium 3.1 L (3.5-5.1) mmol/L Chloride 97 L (98-107) mmol/L Carbon Dioxide 26 (22-30) mmol/L Anion Gap 16 mmol/L BUN 4 L (7-17) mg/dL Creatinine 0.64 (0.52-1.04) mg/dL Est GFR (CKD-EPI)AfAm >90 (>60 ml/min/1.73 sqM) Est GFR (CKD-EPI)NonAf >90 (>60 ml/min/1.73 sqM) Glucose 114 H (74-99) mg/dL Calcium 9.0 (8.4-10.2) mg/dL Magnesium 1.4 L (1.6-2.3) mg/dL Total Bilirubin 1.6 H (0.2-1.3) mg/dL AST 84 H (14-36) U/L ALT 32 (4-34) U/L Alkaline Phosphatase 121 (38-126) U/L Troponin I (0.000-0.034) ng/mL Total Protein 7.4 (6.3-8.2) g/dL Albumin 4.2 (3.5-5.0) g/dL TSH 2.350 (0.465-4.680) mIU/L Digoxin 0.6 ng/mL Serum Alcohol 291 H* mg/dL 12/01/19 Range/Units 21:53 WBC (3.8-10.6) k/uL RBC (3.80-5.40) m/uL Hgb (11.4-16.0) gm/dL Hct (34.0-46.0) % MCV (80.0-100.0) fL MCH (25.0-35.0) pg MCHC (31.0-37.0) g/dL RDW (11.5-15.5) % Plt Count (150-450) k/uL Neutrophils % (Manual) % Lymphocytes % (Manual) % Monocytes % (Manual) % Eosinophils % (Manual) % Neutrophils # (Manual) (1.3-7.7) k/uL Lymphocytes # (Manual) (1.0-4.8) k/uL Monocytes # (Manual) (0-1.0) k/uL Eosinophils # (Manual) (0-0.7) k/uL Nucleated RBCs (0-0) /100 WBC Manual Slide Review Polychromasia Hypochromasia Poikilocytosis Anisocytosis Microcytosis PT (9.0-12.0) sec INR (<1.2) APTT (22.0-30.0) sec Sodium (137-145) mmol/L Potassium (3.5-5.1) mmol/L Chloride (98-107) mmol/L Carbon Dioxide (22-30) mmol/L Anion Gap mmol/L BUN (7-17) mg/dL Creatinine (0.52-1.04) mg/dL Est GFR (CKD-EPI)AfAm (>60 ml/min/1.73 sqM) Est GFR (CKD-EPI)NonAf (>60 ml/min/1.73 sqM) Glucose (74-99) mg/dL Calcium (8.4-10.2) mg/dL Magnesium (1.6-2.3) mg/dL Total Bilirubin (0.2-1.3) mg/dL AST (14-36) U/L ALT (4-34) U/L Alkaline Phosphatase (38-126) U/L Troponin I 0.024 (0.000-0.034) ng/mL Total Protein (6.3-8.2) g/dL Albumin (3.5-5.0) g/dL TSH (0.465-4.680) mIU/L Digoxin ng/mL Serum Alcohol mg/dL Disposition Clinical Impression: Hypomagnesemia syndrome, Hypokalemia, Alcohol withdrawal Disposition: ADMITTED IP TO THIS HOSP Condition: Fair Referrals: Rodney Wilson MD [Primary Care Provider] - 1-2 days
[2019-12-01 22:19] LABS: Anisocytosis Moderate; HCT 33.8 % (34.0-46.0); HGB 10.1 gm/dL (11.4-16.0); Hypochromasia Marked; MCH 22.6 pg (25.0-35.0); MCHC 29.8 g/dL (31.0-37.0); MCV 75.8 fL (80.0-100.0); Mean Platelet Volume 6.9; Microcytosis Moderate; Platelet Count 659 k/uL (150-450); Poikilocytosis Slight; RBC 4.46 m/uL (3.80-5.40); RDW 21.5 % (11.5-15.5); WBC 10.5 k/uL (3.8-10.6)
[2019-12-01 22:24] LABS: ALT 32 U/L (4-34); AST 84 U/L (14-36); African American GFR (CKD) >90 (>60 ml/min/1.73 sqM); Albumin 4.2 g/dL (3.5-5.0); Alkaline Phosphatase 121 U/L (38-126); Anion Gap 16 mmol/L; Blood Urea Nitrogen 4 mg/dL (7-17); Carbon Dioxide 26 mmol/L (22-30); Chloride 97 mmol/L (98-107); Digoxin 0.6 ng/mL; Glucose 114 mg/dL (74-99); INR 2.2 (<1.2); Magnesium 1.4 mg/dL (1.6-2.3); Non-African American GFR(CKD) >90 (>60 ml/min/1.73 sqM); Partial Thromboplastin Time 29.2 sec (22.0-30.0); Potassium 3.1 mmol/L (3.5-5.1); Sodium 139 mmol/L (137-145); Total Bilirubin 1.6 mg/dL (0.2-1.3); Total Protein 7.4 g/dL (6.3-8.2)
--- NOTE | 2019-12-01 22:32 | XR ---
EXAMINATION TYPE: XR chest 1V portable DATE OF EXAM: 12/01/2019 COMPARISON: 11/04/2019 HISTORY: Dysrhythmia TECHNIQUE: FINDINGS: There is no heart failure nor confluent pneumonic infiltrate. Costophrenic angles are clear . There are sternal wires. There are chest leads. Bony thorax is intact. IMPRESSION: No active cardiopulmonary disease.
[2019-12-01 22:39] LABS: Eosinophils # (M) 0.11 k/uL (0-0.7); Lymphocytes # (M) 3.68 k/uL (1.0-4.8); Monocytes # (M) 0.84 k/uL (0-1.0); Neutrophils # (M) 5.88 k/uL (1.3-7.7); Neutrophils % (M) 56 %; Nucleated Red Blood Cells 0 /100 WBC (0-0); Polychromasia Present; Total Cells Counted 100
[2019-12-01 22:40] LABS: Alcohol 291 mg/dL
[2019-12-01] MEDS ORDERED: POTASSIUM CHLORIDE ER 20 MEQ TAB.ER PO STA (23:36)
[2019-12-01] MEDS ORDERED: MAGNESIUM SULFATE-D5W PMX 1 GM in DEXTROSE/WATER 1 100ML.BAG IVPB ONE (23:36)
[2019-12-02] MEDS ORDERED: LORazepam 2 MG/ML INJ IV STA (01:31)
[2019-12-02] MEDS ORDERED: NALOXONE 0.4 MG/ML 1 ML VIAL IV PRN (02:02)
[2019-12-02] MEDS ORDERED: LORazepam 2 MG/ML INJ IV PRN ×3 (02:08)
[2019-12-02] MEDS ORDERED: THIAMINE 100 MG/ML 2 ML VIAL IM STA (02:08)
[2019-12-02] MEDS: SODIUM CHLORIDE 0.9% 1,000 ML IV SCH (02:25)
--- NOTE | 2019-12-02 02:53 | XR ---
EXAMINATION TYPE: XR knee complete RT DATE OF EXAM: 12/02/2019 COMPARISON: NONE HISTORY: Knee pain TECHNIQUE: 3 views FINDINGS: I see no fracture nor dislocation. Joint spaces are normal. There is no sign of knee joint effusion. IMPRESSION: Negative right knee exam.
[2019-12-02 03:52] LABS: Glucose,Whole Blood 98 mg/dL (75-99)
[2019-12-02] MEDS: FAMOTIDINE 20 MG TAB PO SCH ×2 (07:44→19:39)
[2019-12-02] MEDS: SPIRONOLACTONE 25 MG TAB PO SCH (07:44)
[2019-12-02] MEDS: FUROSEMIDE 80 MG TAB PO SCH (07:44)
[2019-12-02] MEDS: PANTOPRAZOLE 40 MG TABLET PO SCH ×2 (07:44→15:24)
[2019-12-02] MEDS: LORazepam 0.5 MG TAB PO PRN ×3 (07:44→21:50)
[2019-12-02] MEDS: POTASSIUM CHLORIDE ER 20 MEQ TAB.ER PO SCH ×2 (07:44→19:39)
[2019-12-02] MEDS: DIGOXIN 125 MCG TAB PO SCH (07:44)
[2019-12-02] MEDS: LORATADINE 10 MG TAB PO SCH (07:45)
[2019-12-02] MEDS ORDERED: METOPROLOL SUCCINATE (ER) 100 MG TAB.ER.24H PO SCH (09:00)
[2019-12-02 09:13] LABS: Prothrombin Time 19.8 sec (9.0-12.0)
[2019-12-02] MEDS: ACETAMINOPHEN TAB 325 MG TAB PO PRN ×2 (12:31→19:37)
--- NOTE | 2019-12-02 13:37 | P.CRDCN ---
History of Present Illness History of present illness: HISTORY OF PRESENTING ILLNESS This is a pleasant 34-year-old female past medical history significant for content of heart disease status post surgical repair at the age of 3 months for transposition of the great vessels. She follows consistently at [facility]. She also has history of paroxysmal atrial fibrillation maintained on long-term anticoagulation. We have been asked to see in consultation for chest pain. She states last night she was at her mother's house and they had just lost a family member suddenly. She started developing a pressure sensation on her chest. It felt like a ton of bricks are sitting on her pressing her into the wall. The pain did not radiate to the arm, back, neck or jaw. She has some mild associated shortness of breath. She denies dizziness, nausea, vomiting, diaphoresis or palpitations. On arrival to the emergency department she was found to be intoxicated with EtOH level of 291. She also states she has been out of her Ativan that she takes regularly around the clock for the previous 2-3 days. Most recent echocardiogram obtained January 2019 reveals preserved LV systolic function with ejection fraction 55-60%, discogenic septal motion consistent with previous open heart surgery, possible. Breasts VSD, moderate TR and severe pulmonary hypertension with an RVSP of 95 mmHg. Current daily cardiac medications include Coumadin 4 mg daily, Aldactone 25 mg daily, Toprol 100 mg daily, Lasix 80 mg daily and digoxin 125 g daily. EKG on arrival reveals sinus mechanism with right bundle branch block pattern. 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 Laboratory data reviewed, WBC 10.5, hemoglobin 10.1, platelets 659, INR 2.0, d- dimer 1.78, sodium 139, potassium 3.1, creatinine 0.64, magnesium 1.4, bilirubin 1.6, cardiac enzymes negative 2, TSH 2.35 and serum alcohol level of 291. REVIEW OF SYSTEMS At the time of my exam: CONSTITUTIONAL: Denies fever or chills. CARDIOVASCULAR: Complains of chest pain and shortness of breath. Denies orthopnea, PND or palpitations. RESPIRATORY: Denies cough. GASTROINTESTINAL: Denies abdominal pain, diarrhea, constipation, nausea or vomiting. MUSCULOSKELETAL: Complains of left knee discomfort. NEUROLOGIC: Denies numbness, tingling or weakness. ENDOCRINE: Denies fatigue, weight change, polydipsia or polyurina. GENITOURINARY: Denies burning, hematuria or urgency with micturation. HEMATOLOGIC: Denies history of anemia or bleeding. PHYSICAL EXAMINATION Blood pressure 129/74 heart rate 75 afebrile and maintaining oxygen saturation on room air. CONSTITUTIONAL: No apparent distress. HEENT: Head is normocephalic. Pupils are equal, round. Sclerae anicteric. Mucous membranes of the mouth are moist. No JVD. No carotid bruit. CHEST EXAMINATION: Lungs are clear to auscultation. No chest wall tenderness is noted on palpation or with deep breathing. HEART EXAMINATION: Regular rate and rhythm. S1, S2 heard. Systolic ejection murmur, no gallops or rub. ABDOMEN: Soft, nontender. Positive bowel sounds. EXTREMITIES: 2+ peripheral pulses, no lower extremity edema and no calf tenderness. NEUROLOGIC EXAMINATION: Patient is awake, alert and oriented x3. ASSESSMENT Chest pain and shortness of breath. Per the patient recent stress testing on Wednesday of last week was unremarkable the [facility]. 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 Recent stress testing performed at [facility] was normal. No further cardiac workup at this time. Continue current medical regimen. Complete alcohol cessation recommended. 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 Thank you kindly for this consultation. Nurse Practitioner note has been reviewed, I agree with a documented findings and plan of care. Patient was seen and examined. Past Medical History Past Medical History: Atrial Fibrillation, Heart Failure Additional Past Medical History / Comment(s): Afib with RVR, pt had transposition of great arteries as an , hypomagnesemia. History of Any Multi-Drug Resistant Organisms: ESBL Date of last positivie culture/infection: 02/25/17 ESBL-Klebsiella MDRO Source:: Urine Past Surgical History: No Surgical Hx Reported Additional Past Surgical History / Comment(s): open heart surg for transposition of great arteries, CARDIOVERTED FOR A- FIB twice Past Anesthesia/Blood Transfusion Reactions: No Reported Reaction Past Psychological History: Anxiety Additional Psychological History / Comment(s): Pt resides alone. She is employed. Smoking Status: Former smoker Past Alcohol Use History: None Reported Additional Past Alcohol Use History / Comment(s): Pt started smoking in 2002 and quit in 2016. Pt states she used to be a heavy drinker but now drinks occasionally and less than 7 drinks a week. Past Drug Use History: None Reported - Past Family History Mother Family Medical History: No Reported History Additional Family Medical History / Comment(s): Mother is healthy Father Family Medical History: No Reported History Additional Family Medical History / Comment(s): Father is healthy Medications and Allergies Home Medications Medication Instructions Recorded Confirmed Type Digoxin [Digitek] 125 mcg PO DAILY 12/19/17 12/02/19 History Spironolactone [Aldactone] 25 mg PO DAILY 12/19/17 12/02/19 History Furosemide [Lasix] 80 mg PO DAILY 03/19/19 12/02/19 History Potassium Chloride [Klor-Con 20] 40 meq PO BID 03/19/19 12/02/19 History LORazepam [Ativan] 0.5 mg PO TID PRN 03/31/19 12/02/19 History Loratadine [Claritin] 10 mg PO DAILY 11/04/19 12/02/19 History Pantoprazole [Protonix] 40 mg PO AC-BID #60 tablet. 11/10/19 12/02/19 Rx Metoprolol Tartrate [Lopressor] 100 mg PO DAILY 12/02/19 12/02/19 History Warfarin [Coumadin] 2 mg PO HS@1800 12/02/19 12/02/19 History Allergies Allergy/AdvReac Type Severity Reaction Status Date / Time Iodinated Contrast Media AdvReac TWITCHING Verified 12/01/19 21:24 [Iodinated Contrast- Oral and IV Dye] Physical Exam Vitals: Vital Signs Temp Pulse Pulse Resp BP BP Pulse Ox 12/02/19 07:00 97.3 F L 75 18 129/74 97 12/02/19 03:36 97.7 F 71 16 100/66 97 12/02/19 02:07 82 18 110/56 98 12/01/19 23:07 91 18 110/65 96 12/01/19 21:21 97.8 F 95 22 114/78 100 Intake and Output 12/01/19 12/02/19 12/02/19 22:59 06:59 14:59 Intake Total 340 Balance 340 Intake: Other 340 Other: Weight 63.503 kg 63.503 kg Results 12/01/19 21:53 12/01/19 21:53 Cardiac Enzymes 12/01/19 12/01/19 12/02/19 Range/Units 21:53 21:53 07:54 AST 84 H (14-36) U/L Troponin I 0.024 0.025 (0.000-0.034) ng/mL Coagulation 12/01/19 12/02/19 Range/Units 21:53 07:54 PT 21.0 H 19.8 H (9.0-12.0) sec APTT 29.2 (22.0-30.0) sec CBC 12/01/19 Range/Units 21:53 WBC 10.5 (3.8-10.6) k/uL RBC 4.46 (3.80-5.40) m/uL Hgb 10.1 L (11.4-16.0) gm/dL Hct 33.8 L (34.0-46.0) % Plt Count 659 H (150-450) k/uL Comprehensive Metabolic Panel 12/01/19 Range/Units 21:53 Sodium 139 (137-145) mmol/L Potassium 3.1 L (3.5-5.1) mmol/L Chloride 97 L (98-107) mmol/L Carbon Dioxide 26 (22-30) mmol/L BUN 4 L (7-17) mg/dL Creatinine 0.64 (0.52-1.04) mg/dL Glucose 114 H (74-99) mg/dL Calcium 9.0 (8.4-10.2) mg/dL AST 84 H (14-36) U/L ALT 32 (4-34) U/L Alkaline Phosphatase 121 (38-126) U/L Total Protein 7.4 (6.3-8.2) g/dL Albumin 4.2 (3.5-5.0) g/dL Current Medications Generic Name Dose Route Start Last Admin Trade Name Freq PRN Reason Stop Dose Admin Acetaminophen 650 mg 12/02/19 03:49 Tylenol Tab PO Q8HR PRN Fever and/ or Pain Digoxin 125 mcg 12/02/19 09:00 12/02/19 07:44 Lanoxin PO 125 mcg DAILY MICHAEL Administration Famotidine 20 mg 12/02/19 09:00 12/02/19 07:44 Pepcid PO 20 mg BID MICHAEL Administration Furosemide 80 mg 12/02/19 09:00 12/02/19 07:44 Lasix PO 80 mg DAILY MICHAEL Administration Sodium Chloride 1,000 mls @ 60 mls/hr 12/02/19 02:15 12/02/19 02:25 Saline 0.9% IV 60 mls/hr .[id number] MICHAEL Administration Loratadine 10 mg 12/02/19 09:00 12/02/19 07:45 Claritin PO 10 mg DAILY MICHAEL Administration Lorazepam 0.5 mg 12/02/19 02:07 12/02/19 07:44 Ativan PO 0.5 mg TID PRN Administration Anxiety Lorazepam 1 mg 12/02/19 02:08 Ativan IV Q2HR PRN CIWA 8 or 9 Lorazepam 1 mg 12/02/19 02:08 Ativan IV Q1HR PRN CIWA 10 to 15 Lorazepam 2 mg 12/02/19 02:08 12/02/19 04:09 Ativan IV 12/04/19 02:08 2 mg Q10M PRN Administration CIWA 16 or higher Metoprolol Succinate 100 mg 12/02/19 09:00 12/02/19 07:45 Toprol Xl PO 100 mg DAILY MICHAEL Administration Miscellaneous Information 0 each 12/02/19 10:32 Coumadin Per Pharmacy MISCELLANE DIRECTED PRN ANTICOAG Naloxone HCl 0.2 mg 12/02/19 02:02 Narcan IV Q2M PRN Opioid Reversal Pantoprazole Sodium 40 mg 12/02/19 07:30 12/02/19 07:44 Protonix PO 40 mg AC-BID MICHAEL Administration Potassium Chloride 40 meq 12/02/19 09:00 12/02/19 07:44 K-Dur 20 PO 40 meq BID [facility] Administration Spironolactone 25 mg 12/02/19 09:00 12/02/19 07:44 Aldactone PO 25 mg DAILY [facility] Administration Thiamine HCl 100 mg 12/02/19 17:30 Vitamin B-1 PO BID-W/MEALS [facility] Warfarin Sodium 4 mg 12/02/19 18:00 Coumadin PO DAILY@1800 [facility] Protocol Intake and Output 12/01/19 12/02/19 12/02/19 22:59 06:59 14:59 Intake Total 340 Balance 340 Intake: Other 340 Other: Weight 63.503 kg 63.503 kg 12/01/19 21:53 12/01/19 21:53
[2019-12-02] MEDS: THIAMINE 100 MG TAB PO SCH (15:23)
[2019-12-02] MEDS ORDERED: WARFARIN 2 MG TAB PO SCH (18:00)
--- NOTE | 2019-12-02 18:06 | HP ---
HISTORY AND PHYSICAL CHIEF COMPLAINT: Acute alcohol intoxication and DTs. HISTORY OF PRESENT ILLNESS: This is another recent admission for this 34-year-old white female with congenital heart disease. She had transposition of the great vessels as a youth. She is a somewhat noncompliant individual in terms of careful followup. She frequently does not get her PT, INR, blood work drawn regularly and has been prone to either becoming over or under anticoagulated. She was recently in the hospital after GI bleed. She came into the emergency room this time acutely intoxicated and in DTs. She states she had binge drinking heavily the day before she came in, but denied drinking that day. We were never made aware of the fact that she is a heavy binge drinker. She also was complaining of chest pain. She had no diaphoresis. She was not vomiting and she had no hematemesis or melena. REVIEW OF SYSTEMS: Otherwise un reliably. She denies any cough, hemoptysis, hematuria, vaginal discharge or bleeding, blackouts, seizures, etc. Past medical history, family history, personal and social history reveal that she is ALLERGIC TO LEXAPRO. She is on spironolactone 25 mg once a day, Lanoxin 0.125 every day, Protonix 40 mg twice a day, loratadine, calcium, magnesium, Coumadin 4 mg once a day, lorazepam 5 mg t.i.d., and she states that she is been that she has not been taking them. She has been on potassium 20 mEq twice a day, metoprolol 100 mg once a day and Lasix 40 mg once a day. She used to smoke but she has quit. PHYSICAL EXAMINATION: Blood pressure 122/75 with a pulse of 94, respirations of 36, and she is afebrile. In general, she appeared to be intoxicated. Skin was slightly dry. Skin color is normal. Head, ears, eyes, nose, mouth, and throat were normal except for injection of the bulbar conjunctivae. Neck veins are not distended and carotids were normal. Chest is clear to auscultation. Cardiac exam demonstrated sinus rhythm with her usual grade 3/6 systolic murmur heard throughout the precordium. The abdomen was slightly protuberant and nontender. There was no definite visceromegaly. Bowel sounds present. Extremities normal. Neurological: She seemed slightly tremulous, but oriented. IMPRESSION: 1. Acute alcohol intoxication. 2. Delirium tremens. 3. Possible lorazepam withdrawal. 4. Congenital heart disease. 5. Alcoholism. PLAN: 1. Bed rest. 2. IV fluids. 3. [facility] protocol. 4. Further evaluation of her chest pain including troponin, BNP and D-dimer as well as Cardiology consult. JOSE ANGEL / CAROLYN: [id number] /
[2019-12-03] MEDS: SODIUM CHLORIDE 0.9% 1,000 ML IV SCH ×2 (01:18→07:38)
[2019-12-03 05:18] VITALS: TEMP 97.7
[2019-12-03] MEDS: THIAMINE 100 MG TAB PO SCH (07:33)
[2019-12-03] MEDS: LORATADINE 10 MG TAB PO SCH (07:33)
[2019-12-03] MEDS: FAMOTIDINE 20 MG TAB PO SCH (07:33)
[2019-12-03] MEDS: SPIRONOLACTONE 25 MG TAB PO SCH (07:33)
[2019-12-03] MEDS: POTASSIUM CHLORIDE ER 20 MEQ TAB.ER PO SCH (07:33)
[2019-12-03] MEDS: DIGOXIN 125 MCG TAB PO SCH (07:33)
[2019-12-03] MEDS: LORazepam 0.5 MG TAB PO PRN (07:33)
[2019-12-03] MEDS: FUROSEMIDE 80 MG TAB PO SCH (07:33)
[2019-12-03] MEDS: PANTOPRAZOLE 40 MG TABLET PO SCH (07:38)
[2019-12-03 08:01] LABS: INR 2.5 (<1.2); Prothrombin Time 24.7 sec (9.0-12.0)
[2019-12-03] MEDS ORDERED: METOPROLOL TARTRATE 50 MG TAB PO SCH (09:00)
--- NOTE | 2019-12-03 12:59 | DS ---
DISCHARGE SUMMARY CHIEF COMPLAINT: Acute alcohol intoxication and DTs. HISTORY OF PRESENT ILLNESS AND PHYSICAL EXAM: Details of this lady's history and physical can be found in the initial workup. LABORATORY STUDIES: While she was in the hospital, she had laboratory studies, details of which can be found in the laboratory section of her chart. COURSE IN HOSPITAL: After admission, she was placed on bedrest and started on intravenous fluids and started on the CIWA protocol. She remained tremulous for the 1st 12 to 24 hours, but then cleared. She was doing well and was up and about. It was felt that she could go home on 12/03/2019 on her usual medications and diet. She will be seen in the office several days. FINAL DIAGNOSES: 1. Acute alcohol intoxication. 2. Delirium tremens. 3. Congenital heart disease. 4. Chest pains. OPERATIONS: None. CONSULTATIONS: Cardiology. She is improved. JOSE ANGEL / CAROLYN: [id number] /
[2019-12-03 13:02] VITALS: BP 103/59; PULSE 66; RESP 16
== END 2019-12-03 15:20 | disposition home or self-care (01) | DRG 896 ==
LOC: EC 21:13 → 6NMEDSUR 12-02 02:02
PROVIDERS: ADMIT Family Medicine; ATTEND Family Medicine
DX: F10.229 Alcohol dependence with intoxication, unspecified (principal); Q20.3 Discordant ventriculoarterial connection; Q21.0 Ventricular septal defect; F10.231 Alcohol dependence with withdrawal delirium; Y90.8 Blood alcohol level of 240 mg/100 ml or more; E83.42 Hypomagnesemia; E87.6 Hypokalemia; F41.9 Anxiety disorder, unspecified; I11.0 Hypertensive heart disease with heart failure; I27.20 Pulmonary hypertension, unspecified; I45.10 Unspecified right bundle-branch block; I48.0 Paroxysmal atrial fibrillation; I50.9 Heart failure, unspecified; Z87.19 Personal history of other diseases of the digestive system; Z79.01 Long term (current) use of anticoagulants; Z79.899 Other long term (current) drug therapy; Z87.891 Personal history of nicotine dependence; Z91.19 Patient's noncompliance with other medical treatment and regimen; F13.239 Sedative, hypnotic or anxiolytic dependence with withdrawal, unspecified; Z91.041 Radiographic dye allergy status; Z60.2 Problems related to living alone
CPT/HCPCS: 36415; 71045; 80053; 80162; 80320; 83735; 83880; 84443; 84484; 85025; 85379; 85610; 85730; 93005

== ENCOUNTER 2020-01-13 22:00 | Inpatient (IN) | payer OTHER ==
[2020-01-13 22:39] LABS: Anisocytosis Slight; Hypochromasia Marked; MCH 21.9 pg (25.0-35.0); MCHC 29.9 g/dL (31.0-37.0); MCV 73.2 fL (80.0-100.0); Mean Platelet Volume 8.2; Microcytosis Moderate; Platelet Count 684 k/uL (150-450); Poikilocytosis Slight; RBC 2.48 m/uL (3.80-5.40); RDW 18.9 % (11.5-15.5)
[2020-01-13] MEDS ORDERED: LORazepam 2 MG/ML INJ IV STA (22:41)
[2020-01-13 22:51] LABS: HGB 5.4 gm/dL (11.4-16.0)
--- NOTE | 2020-01-13 22:51 | XR ---
EXAMINATION TYPE: XR chest 2V DATE OF EXAM: 01/13/2020 COMPARISON: 12/01/2019 HISTORY: Difficulty breathing TECHNIQUE: FINDINGS: Heart appears slightly enlarged. There is no heart failure. There are sternal wires. Costop hrenic angles are clear. Pulmonary vascularity is normal. Bony thorax is intact. IMPRESSION: Mild cardiomegaly. No active cardiopulmonary disease. No change.
[2020-01-13 22:52] LABS: HCT 18.1 % (34.0-46.0)
[2020-01-13 22:56] LABS: ALT 22 U/L (4-34); AST 69 U/L (14-36); African American GFR (CKD) >90 (>60 ml/min/1.73 sqM); Albumin 4.3 g/dL (3.5-5.0); Alkaline Phosphatase 106 U/L (38-126); Anion Gap 14 mmol/L; Blood Urea Nitrogen 11 mg/dL (7-17); Calcium 9.2 mg/dL (8.4-10.2); Carbon Dioxide 19 mmol/L (22-30); Chloride 99 mmol/L (98-107); Glucose 102 mg/dL (74-99); Non-African American GFR(CKD) >90 (>60 ml/min/1.73 sqM); Potassium 3.5 mmol/L (3.5-5.1); Sodium 132 mmol/L (137-145); Total Protein 7.5 g/dL (6.3-8.2)
--- NOTE | 2020-01-13 23:47 | ED ---
General Adult HPI - General Source: patient Mode of arrival: wheelchair Limitations: no limitations <Theresa Alaniz - Last Filed: 01/14/20 00:50> <Charles Mendes - Last Filed: 01/14/20 01:02> - General Chief complaint: Recheck/Abnormal Lab/Rx Stated complaint: Dizziness Time Seen by Provider: 01/13/20 22:10 - History of Present Illness Initial comments: 34-year-old female patient with past medical history significant for chronic alcohol use, anemia, iron deficiency presents to the emergency department today for evaluation of shortness of breath and weakness. Patient states that she becomes dyspneic with minimal ambulation. States the last time she felt like this her blood counts were low and she required a blood transfusion. Patient states she was admitted to the hospital and they're unable to find a cause for her low blood levels. States she is posterior follow-up with hematology however they have been unable to get her in due to the current coronavirus pandemic. Patient denies any obvious blood in her stool. Denies bleeding from other parts of her body. States she has not had a period. States she has stopped drinking alcohol. Patient denies any recent rash, fever, chills, cough, chest pain, abdominal pain, nausea, vomiting, diarrhea, constipation, back pain, numbness, tingling, hematuria, dysuria, urinary urgency, urinary frequency, headache, visual changes, or any other complaints. (Theresa Alaniz) - Related Data Home Medications Medication Instructions Recorded Confirmed Digoxin [Digitek] 125 mcg PO DAILY 12/19/17 12/02/19 Spironolactone [Aldactone] 25 mg PO DAILY 12/19/17 12/02/19 Furosemide [Lasix] 80 mg PO DAILY 03/19/19 12/02/19 Potassium Chloride [Klor-Con 20] 40 meq PO BID 03/19/19 12/02/19 LORazepam [Ativan] 0.5 mg PO TID PRN 03/31/19 12/02/19 Loratadine [Claritin] 10 mg PO DAILY 11/04/19 12/02/19 Metoprolol Tartrate [Lopressor] 100 mg PO DAILY 12/02/19 12/02/19 Previous Rx's Medication Instructions Recorded Pantoprazole [Protonix] 40 mg PO AC-BID #60 tablet. 11/10/19 Warfarin [Coumadin] 4 mg PO DAILY@1800 tab 12/03/19 Allergies Allergy/AdvReac Type Severity Reaction Status Date / Time Iodinated Contrast Media AdvReac TWITCHING Verified 01/13/20 22:09 [Iodinated Contrast- Oral and IV Dye] Review of Systems ROS Other: All systems not noted in ROS Statement are negative. <Theresa Alaniz - Last Filed: 01/14/20 00:50> ROS Other: All systems not noted in ROS Statement are negative. <Charles Mendes - Last Filed: 01/14/20 01:02> ROS Statement: Those systems with pertinent positive or pertinent negative responses have been documented in the HPI. Past Medical History Past Medical History: Atrial Fibrillation, Heart Failure Additional Past Medical History / Comment(s): Afib with RVR, pt had transposition of great arteries as an , hypomagnesemia. History of Any Multi-Drug Resistant Organisms: ESBL Date of last positivie culture/infection: 02/25/17 ESBL-Klebsiella MDRO Source:: Urine Past Surgical History: No Surgical Hx Reported Additional Past Surgical History / Comment(s): open heart surg for transposition of great arteries, CARDIOVERTED FOR A- FIB twice Past Anesthesia/Blood Transfusion Reactions: No Reported Reaction Past Psychological History: Anxiety Smoking Status: Former smoker Past Alcohol Use History: None Reported Past Drug Use History: None Reported - Past Family History Mother Family Medical History: No Reported History Additional Family Medical History / Comment(s): Mother is healthy Father Family Medical History: No Reported History Additional Family Medical History / Comment(s): Father is healthy <Theresa Alaniz - Last Filed: 01/14/20 00:50> General Exam Limitations: no limitations General appearance: alert, in no apparent distress, other (Physical well-developed, well-nourished adult female patient in no acute distress. Vital signs upon presentation are temperature 98.1F, pulse 100, respirations 18, blood pressure 115/78, pulse ox 100% on room air.) Eye exam: Present: normal appearance, PERRL, EOMI. Absent: scleral icterus, conjunctival injection, periorbital swelling ENT exam: Present: normal exam, normal oropharynx, mucous membranes moist Respiratory exam: Present: normal lung sounds bilaterally. Absent: respiratory distress, wheezes, rales, rhonchi, stridor Cardiovascular Exam: Present: regular rate, normal rhythm, normal heart sounds. Absent: systolic murmur, diastolic murmur, rubs, gallop, clicks Neurological exam: Present: alert, oriented X3, CN II-XII intact Psychiatric exam: Present: normal affect, normal mood Skin exam: Present: warm, dry, intact, normal color. Absent: rash <Theresa Alaniz - Last Filed: 01/14/20 00:50> Course Vital Signs 01/13/20 01/13/20 01/13/20 22:01 22:32 22:50 Temperature 98.1 F Pulse Rate 100 82 Respiratory 18 20 16 Rate Blood Pressure 115/78 102/68 O2 Sat by Pulse 100 97 Oximetry 01/14/20 01/14/20 01/14/20 00:24 00:28 00:38 Temperature 98.6 F 98.2 F 98.1 F Pulse Rate 93 100 102 H Respiratory 18 18 17 Rate Blood Pressure 98/48 98/48 98/45 O2 Sat by Pulse 99 100 100 Oximetry EKG Findings - EKG Comments: EKG Findings:: EKG obtained at 2218 shows sinus rhythm with frequent PVCs, right bundle branch block. Ventricular rate is 92, NC interval 200, QRS duration 170, QT 428, QTC 529. EKG is similar to previous dated 12/02/19. <Theresa Alaniz - Last Filed: 01/14/20 00:50> Medical Decision Making - Lab Data Result diagrams: 01/13/20 22:27 01/13/20 22:27 - Radiology Data Radiology results: report reviewed, image reviewed <Theresa Alaniz - Last Filed: 01/14/20 00:50> - Lab Data Result diagrams: 01/13/20 22:27 01/13/20 22:27 <Charles Mendes - Last Filed: 01/14/20 01:02> - Medical Decision Making 34-year-old female patient with past medical history significant for atrial fibrillation, alcoholic liver disease, congestive heart failure, presents to the emergency department today for evaluation of increased dyspnea with activity. Patient states his been going on for the last day or 2. She does report increased anxiety and some chest pressure. Physical examination reveals pallor, clear equal lung sounds, soft nontender abdomen. Labs reviewed and did reveal hemoglobin of 5.4. INR of 8.8. She does take Coumadin 2.5 mg daily. Other labs are unremarkable. Occult blood and digoxin level pending. 2 units of packed red blood cells were ordered. Vitamin K and Kcentra were ordered per my attending physician Dr. Mendes, Dr. Wilson has been notified. Dr. Rivera was notified for possible ICU admission. Recommends selective with re-evaluation in the morning. (Theresa Alaniz) 34 female to ED w SOB, dyspnea, patient w coumadin toxicity, GIB, and significant symptomatic anemi. Patient to be admitted for close hemodynamic monitoring. (Charles Mendes) - Lab Data Lab Results 01/13/20 01/13/20 01/13/20 Range/Units 22:27 22:27 22:27 WBC 10.9 H (3.8-10.6) k/uL RBC 2.48 L (3.80-5.40) m/uL Hgb 5.4 L* D (11.4-16.0) gm/dL Hct 18.1 L* (34.0-46.0) % MCV 73.2 L (80.0-100.0) fL MCH 21.9 L (25.0-35.0) pg MCHC 29.9 L (31.0-37.0) g/dL RDW 18.9 H (11.5-15.5) % Plt Count 684 H (150-450) k/uL Neutrophils % (Manual) 70 % Band Neutrophils % 1 % Lymphocytes % (Manual) 23 % Monocytes % (Manual) 4 % Eosinophils % (Manual) 3 % Metamyelocytes % 1 % Neutrophils # (Manual) 7.70 (1.3-7.7) k/uL Lymphocytes # (Manual) 2.51 (1.0-4.8) k/uL Monocytes # (Manual) 0.44 (0-1.0) k/uL Eosinophils # (Manual) 0.33 (0-0.7) k/uL Metamyelocytes # (Man) 0.11 H (0) k/uL Nucleated RBCs 1 H (0-0) /100 WBC Manual Slide Review Performed Large Platelets Present Polychromasia Present Hypochromasia Marked Poikilocytosis Slight Anisocytosis Slight Microcytosis Moderate PT (9.0-12.0) sec INR (<1.2) APTT (22.0-30.0) sec Sodium 132 L (137-145) mmol/L Potassium 3.5 (3.5-5.1) mmol/L Chloride 99 (98-107) mmol/L Carbon Dioxide 19 L (22-30) mmol/L Anion Gap 14 mmol/L BUN 11 (7-17) mg/dL Creatinine 0.79 (0.52-1.04) mg/dL Est GFR (CKD-EPI)AfAm >90 (>60 ml/min/1.73 sqM) Est GFR (CKD-EPI)NonAf >90 (>60 ml/min/1.73 sqM) Glucose 102 H (74-99) mg/dL Plasma Lactic Acid Andrew 2.9 H* (0.7-2.0) mmol/L Calcium 9.2 (8.4-10.2) mg/dL Total Bilirubin 1.0 (0.2-1.3) mg/dL AST 69 H (14-36) U/L ALT 22 (4-34) U/L Alkaline Phosphatase 106 (38-126) U/L Troponin I (0.000-0.034) ng/mL Total Protein 7.5 (6.3-8.2) g/dL Albumin 4.3 (3.5-5.0) g/dL Digoxin ng/mL Blood Type Blood Type Recheck Bld Type Recheck Status Antibody Screen Crossmatch Spec Expiration Date 01/13/20 01/13/20 01/13/20 Range/Units 22:27 22:27 22:27 WBC (3.8-10.6) k/uL RBC (3.80-5.40) m/uL Hgb (11.4-16.0) gm/dL Hct (34.0-46.0) % MCV (80.0-100.0) fL MCH (25.0-35.0) pg MCHC (31.0-37.0) g/dL RDW (11.5-15.5) % Plt Count (150-450) k/uL Neutrophils % (Manual) % Band Neutrophils % % Lymphocytes % (Manual) % Monocytes % (Manual) % Eosinophils % (Manual) % Metamyelocytes % % Neutrophils # (Manual) (1.3-7.7) k/uL Lymphocytes # (Manual) (1.0-4.8) k/uL Monocytes # (Manual) (0-1.0) k/uL Eosinophils # (Manual) (0-0.7) k/uL Metamyelocytes # (Man) (0) k/uL Nucleated RBCs (0-0) /100 WBC Manual Slide Review Large Platelets Polychromasia Hypochromasia Poikilocytosis Anisocytosis Microcytosis PT (9.0-12.0) sec INR (<1.2) APTT (22.0-30.0) sec Sodium (137-145) mmol/L Potassium (3.5-5.1) mmol/L Chloride (98-107) mmol/L Carbon Dioxide (22-30) mmol/L Anion Gap mmol/L BUN (7-17) mg/dL Creatinine (0.52-1.04) mg/dL Est GFR (CKD-EPI)AfAm (>60 ml/min/1.73 sqM) Est GFR (CKD-EPI)NonAf (>60 ml/min/1.73 sqM) Glucose (74-99) mg/dL Plasma Lactic Acid Andrew (0.7-2.0) mmol/L Calcium (8.4-10.2) mg/dL Total Bilirubin (0.2-1.3) mg/dL AST (14-36) U/L ALT (4-34) U/L Alkaline Phosphatase (38-126) U/L Troponin I <0.012 (0.000-0.034) ng/mL Total Protein (6.3-8.2) g/dL Albumin (3.5-5.0) g/dL Digoxin 0.9 ng/mL Blood Type O Positive Blood Type Recheck O Pos Bld Type Recheck Status No Antibody Screen NEGATIVE Crossmatch See Detail Spec Expiration Date 01/16/2020 - 232601/13/20 Range/Units 23:05 WBC (3.8-10.6) k/uL RBC (3.80-5.40) m/uL Hgb (11.4-16.0) gm/dL Hct (34.0-46.0) % MCV (80.0-100.0) fL MCH (25.0-35.0) pg MCHC (31.0-37.0) g/dL RDW (11.5-15.5) % Plt Count (150-450) k/uL Neutrophils % (Manual) % Band Neutrophils % % Lymphocytes % (Manual) % Monocytes % (Manual) % Eosinophils % (Manual) % Metamyelocytes % % Neutrophils # (Manual) (1.3-7.7) k/uL Lymphocytes # (Manual) (1.0-4.8) k/uL Monocytes # (Manual) (0-1.0) k/uL Eosinophils # (Manual) (0-0.7) k/uL Metamyelocytes # (Man) (0) k/uL Nucleated RBCs (0-0) /100 WBC Manual Slide Review Large Platelets Polychromasia Hypochromasia Poikilocytosis Anisocytosis Microcytosis PT 91.6 H (9.0-12.0) sec INR 8.8 H* (<1.2) APTT 40.3 H (22.0-30.0) sec Sodium (137-145) mmol/L Potassium (3.5-5.1) mmol/L Chloride (98-107) mmol/L Carbon Dioxide (22-30) mmol/L Anion Gap mmol/L BUN (7-17) mg/dL Creatinine (0.52-1.04) mg/dL Est GFR (CKD-EPI)AfAm (>60 ml/min/1.73 sqM) Est GFR (CKD-EPI)NonAf (>60 ml/min/1.73 sqM) Glucose (74-99) mg/dL Plasma Lactic Acid Andrew (0.7-2.0) mmol/L Calcium (8.4-10.2) mg/dL Total Bilirubin (0.2-1.3) mg/dL AST (14-36) U/L ALT (4-34) U/L Alkaline Phosphatase (38-126) U/L Troponin I (0.000-0.034) ng/mL Total Protein (6.3-8.2) g/dL Albumin (3.5-5.0) g/dL Digoxin ng/mL Blood Type Blood Type Recheck Bld Type Recheck Status Antibody Screen Crossmatch Spec Expiration Date - Radiology Data Two-view x-ray of the chest is obtained. Report was reviewed in its entirety. Impression by Dr. Taylor shows mild cardiomegaly. No active cardiopulmonary disease. No change. (Theresa Alaniz) Critical Care Time Critical Care Time: Yes Total Critical Care Time: 31 <Charles Mendes - Last Filed: 01/14/20 01:02> Disposition Decision to Admit Reason: Admit from EC Decision Date: 01/14/20 Decision Time: 00:42 <Theresa Alaniz - Last Filed: 01/14/20 00:50> <Charles Mendes - Last Filed: 01/14/20 01:02> Clinical Impression: Anemia, Dyspnea, Coagulopathy, Warfarin-induced coagulopathy, Alcohol use disorder Disposition: ADMITTED IP TO THIS [facility] Condition: Serious Referrals: Rodney Wilson MD [Primary Care Provider] - 1-2 days
[2020-01-13 23:55] LABS: Partial Thromboplastin Time 40.3 sec (22.0-30.0); Prothrombin Time 91.6 sec (9.0-12.0)
[2020-01-14 00:12] LABS: INR 8.8 (<1.2)
[2020-01-14] MEDS ORDERED: PHYTONADIONE ORAL 5 MG/5 ML ORAL.SYRG PO STA (00:15)
[2020-01-14] MEDS ORDERED: Kcentra PER PHARMACY 1 EACH MISC MISCELLANE PRN (00:15)
[2020-01-14 00:39] LABS: Band Neutrophils % 1 %; Eosinophils # (M) 0.33 k/uL (0-0.7); Lymphocytes # (M) 2.51 k/uL (1.0-4.8); Metamyelocytes # (M) 0.11 k/uL (0); Metamyelocytes % 1 %; Monocytes # (M) 0.44 k/uL (0-1.0); Neutrophils % (M) 70 %; Nucleated Red Blood Cells 1 /100 WBC (0-0); Polychromasia Present; Total Cells Counted 200; WBC 10.9 k/uL (3.8-10.6)
[2020-01-14 00:40] LABS: Large Platelets Present
[2020-01-14] MEDS ORDERED: ONDANSETRON 4 MG/2 ML VIAL IVP PRN (00:44)
[2020-01-14] MEDS ORDERED: NALOXONE 0.4 MG/ML 1 ML VIAL IV PRN (00:44)
[2020-01-14] MEDS ORDERED: HUMAN PROTHROMBIN COMPLX IV ONE ×2 (01:00)
[2020-01-14] MEDS ORDERED: PANTOPRAZOLE 40 MG/10 ML VIAL IVP STA (01:01)
[2020-01-14] MEDS ORDERED: PHYTONADIONE 10 MG in SODIUM CHLORIDE 0.9% 50 ML IVPB ONE (01:15)
[2020-01-14] MEDS: ACETAMINOPHEN TAB 325 MG TAB PO PRN ×2 (02:10→11:16)
[2020-01-14] MEDS: LORazepam 2 MG/ML INJ IV PRN ×2 (05:21→11:12)
[2020-01-14] MEDS ORDERED: HUMAN PROTHROMBIN COMPLX 500 UNIT/16 ML VIAL IV ONE (07:29)
[2020-01-14] MEDS ORDERED: PANTOPRAZOLE 40 MG/10 ML VIAL IVP SCH (09:00)
[2020-01-14 09:12] LABS: Anisocytosis Slight; HCT 24.6 % (34.0-46.0); Hypochromasia Marked; MCH 24.5 pg (25.0-35.0); MCHC 31.1 g/dL (31.0-37.0); Mean Platelet Volume 7.9; Microcytosis Slight; Platelet Count 482 k/uL (150-450); Poikilocytosis Marked; RBC 3.12 m/uL (3.80-5.40); RDW 17.6 % (11.5-15.5); WBC 7.3 k/uL (3.8-10.6)
[2020-01-14 09:15] LABS: HGB 7.6 gm/dL (11.4-16.0); MCV 78.9 fL (80.0-100.0)
[2020-01-14 09:16] LABS: INR 1.3 (<1.2); Prothrombin Time 12.9 sec (9.0-12.0)
[2020-01-14 15:10] LABS: Anisocytosis Slight; HCT 23.9 % (34.0-46.0); HGB 7.5 gm/dL (11.4-16.0); Hypochromasia Marked; MCH 24.7 pg (25.0-35.0); MCHC 31.2 g/dL (31.0-37.0); MCV 79.1 fL (80.0-100.0); Mean Platelet Volume 7.9; Microcytosis Slight; Platelet Count 466 k/uL (150-450); Poikilocytosis Marked; RBC 3.03 m/uL (3.80-5.40); RDW 17.5 % (11.5-15.5); WBC 7.2 k/uL (3.8-10.6)
[2020-01-14] MEDS: DIGOXIN 125 MCG TAB PO SCH (15:50)
[2020-01-14] MEDS: METOPROLOL TARTRATE 50 MG TAB PO SCH (15:51)
[2020-01-14] MEDS: traMADol 50 MG TAB PO SCH ×2 (15:51→22:18)
[2020-01-14] MEDS: LORazepam 0.5 MG TAB PO PRN (17:44)
[2020-01-14] MEDS: PANTOPRAZOLE 40 MG TABLET PO SCH (17:44)
[2020-01-14 20:10] LABS: Anisocytosis Slight; HCT 24.2 % (34.0-46.0); HGB 7.5 gm/dL (11.4-16.0); Hypochromasia Marked; MCH 24.5 pg (25.0-35.0); Microcytosis Slight; Platelet Count 477 k/uL (150-450); Poikilocytosis Marked; RBC 3.06 m/uL (3.80-5.40); RDW 17.3 % (11.5-15.5); WBC 7.1 k/uL (3.8-10.6)
[2020-01-14] MEDS: POTASSIUM CHLORIDE ER 20 MEQ TAB.ER PO SCH (22:18)
[2020-01-15] MEDS: LORazepam 0.5 MG TAB PO PRN ×3 (02:30→20:21)
[2020-01-15 03:09] LABS: Anisocytosis Slight; HCT 25.6 % (34.0-46.0); Hypochromasia Marked; MCH 25.1 pg (25.0-35.0); MCHC 31.4 g/dL (31.0-37.0); MCV 80.1 fL (80.0-100.0); Mean Platelet Volume 8.1; Microcytosis Slight; Platelet Count 483 k/uL (150-450); Poikilocytosis Marked; RBC 3.19 m/uL (3.80-5.40); RDW 18.2 % (11.5-15.5); WBC 7.9 k/uL (3.8-10.6)
[2020-01-15] MEDS: PANTOPRAZOLE 40 MG TABLET PO SCH ×2 (07:04→16:42)
[2020-01-15] MEDS ORDERED: DIGOXIN 125 MCG TAB PO SCH (09:00)
[2020-01-15] MEDS ORDERED: METOPROLOL TARTRATE 50 MG TAB PO SCH ×2 (09:00→14:31)
[2020-01-15 09:01] VITALS: RESP 16
[2020-01-15] MEDS: FUROSEMIDE 40 MG TAB PO SCH (09:05)
[2020-01-15] MEDS: METOPROLOL TARTRATE 50 MG TAB PO SCH (09:05)
[2020-01-15] MEDS: SPIRONOLACTONE 25 MG TAB PO SCH (09:06)
[2020-01-15] MEDS: POTASSIUM CHLORIDE ER 20 MEQ TAB.ER PO SCH ×2 (09:06→20:21)
[2020-01-15] MEDS: DIGOXIN 125 MCG TAB PO SCH (09:06)
[2020-01-15] MEDS: traMADol 50 MG TAB PO PRN ×3 (09:09→22:26)
--- NOTE | 2020-01-15 14:07 | HP ---
HISTORY AND PHYSICAL CHIEF COMPLAINT: Shortness of breath. HISTORY OF PRESENT ILLNESS: This is another admission for this 34-year-old white female who is quite noncompliant. 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 She does not follow up for her regular PT, INR checks. She apparently was recently in [place] and had a PT, INR there of 2.3 (reported). She came into the emergency room after she was experiencing increasing difficulty breathing and was found to have a hemoglobin of 5.6 and an INR over 6. She denies any chest pain, abdominal pain, nausea, vomiting, hematemesis, melena, hematochezia, dysuria, vaginal bleeding, discharge, epistaxis, etc. Past medical history, family history, personal and social histories are significant largely related to her heart disease. She also has a history of alcoholism. Her medications have been recently Lortab 0.5 t.i.d. p.r.n., Coumadin 4 mg once a day, spironolactone 25 mg once a day, Lanoxin 0.125 once a day, pantoprazole 40 mg twice a day, loratadine 10 mg once a day, calcium carbonate 500 four a day, magnesium 400 mg twice a day, KCl 20 mEq twice a day, metoprolol 100 mg once a day, and furosemide 40 mg once a day. The remainder of her history is essentially otherwise unchanged from her past and recent admitting and discharge summaries. PHYSICAL EXAMINATION: Blood pressure is 112/55 with a pulse of 106, respirations of 33, and she is afebrile. In general, appeared to be pale, in no acute distress. Skin was dry and lymph nodes not enlarged. Head, ears, eyes, nose, mouth, and throat were normal, neck veins were not distended. Thyroid was not enlarged. Chest is clear. Cardiac exam demonstrated sinus rhythm with her usual grade 3/6 murmur in the left sternal border in the precordium. Abdomen is soft, nontender without visceromegaly or masses. Bowel sounds are present, extremities are normal. Neurologically, she is intact. She is admitted to the hospital with diagnoses: 1. Anemia. 2. Iatrogenic hyperprothrombinemia. 3. Congenital heart disease. 4. Probable blood loss anemia. 5. Alcoholism. PLAN: 1. Bed rest. 2. IV fluids. 3. Workup anemia. 4. Correct hyperprothrombinemia. MMODL / IJN: [id number] /
--- NOTE | 2020-01-15 14:43 | PN ---
PROGRESS NOTE DATE OF SERVICE: 01/15/2020 CHIEF COMPLAINT: Anemia. HISTORY OF PRESENT ILLNESS: This lady is feeling fairly well and not having any problems with shortness of breath or chest pain. Hemoglobin is up to about 8.6. PHYSICAL EXAMINATION: Vital signs are normal. Chest is clear. Cardiac exam is normal. The abdomen is soft, nontender. IMPRESSION: 1. Anemia. 2. Hypoprothrombinemia. 3. She is probably able to go home. Her hemoglobin is up and her INR is below. 4. Anemia. 5. Iatrogenic hyperprothrombinemia. PLAN: Increase activity and probably home today or tomorrow. MMODL / IJN: [id number] /
[2020-01-15] MEDS ORDERED: diphenhydrAMINE 50 MG/ML 1 ML VIAL IVP STA (16:22)
[2020-01-15] MEDS: diphenhydrAMINE 25 MG CAP PO PRN ×2 (16:43→22:25)
[2020-01-16] MEDS: PANTOPRAZOLE 40 MG TABLET PO SCH (04:53)
[2020-01-16] MEDS: LORazepam 0.5 MG TAB PO PRN ×2 (04:53→13:07)
[2020-01-16] MEDS: traMADol 50 MG TAB PO PRN (04:53)
[2020-01-16 07:21] LABS: Anisocytosis Slight; HGB 7.6 gm/dL (11.4-16.0); Hypochromasia Marked; MCH 24.7 pg (25.0-35.0); MCHC 30.2 g/dL (31.0-37.0); MCV 81.6 fL (80.0-100.0); Mean Platelet Volume 7.8; Microcytosis Slight; Platelet Count 441 k/uL (150-450); Poikilocytosis Marked; RBC 3.06 m/uL (3.80-5.40); RDW 19.3 % (11.5-15.5); WBC 7.6 k/uL (3.8-10.6)
[2020-01-16 07:29] LABS: Prothrombin Time 10.6 sec (9.0-12.0)
[2020-01-16 07:41] LABS: African American GFR (CKD) >90 (>60 ml/min/1.73 sqM); Anion Gap 9 mmol/L; Blood Urea Nitrogen 5 mg/dL (7-17); Calcium 9.2 mg/dL (8.4-10.2); Carbon Dioxide 20 mmol/L (22-30); Chloride 106 mmol/L (98-107); Glucose 77 mg/dL (74-99); Non-African American GFR(CKD) >90 (>60 ml/min/1.73 sqM); Potassium 4.9 mmol/L (3.5-5.1); Sodium 135 mmol/L (137-145)
[2020-01-16 09:36] VITALS: BP 123/75; PULSE 99; TEMP 97.9
[2020-01-16] MEDS: DIGOXIN 125 MCG TAB PO SCH (09:40)
[2020-01-16] MEDS: POTASSIUM CHLORIDE ER 20 MEQ TAB.ER PO SCH (09:40)
[2020-01-16] MEDS: SPIRONOLACTONE 25 MG TAB PO SCH (09:41)
[2020-01-16] MEDS: FUROSEMIDE 40 MG TAB PO SCH (09:41)
[2020-01-16] MEDS: METOPROLOL TARTRATE 50 MG TAB PO SCH (09:41)
[2020-01-16] MEDS: diphenhydrAMINE 25 MG CAP PO PRN (09:57)
--- NOTE | 2020-01-16 14:50 | DS ---
DISCHARGE SUMMARY CHIEF COMPLAINT: Shortness of breath. HISTORY OF PRESENT ILLNESS AND PHYSICAL EXAM: Details of this lady's history and physical can be found in the initial workup. LABORATORY STUDIES: While she was in a hospital she had laboratory studies, details of which can be found in the laboratory section of her chart. COURSE IN HOSPITAL: After admission, placed on bedrest and started on intravenous fluids and her PT, INR was reversed. There is no sign of bleeding. It was felt that she probably had a GI bleed and had a blood loss anemia. Hemoglobin balanced out around 8.5 and her INR came down to the normal range. She will go home on her usual activity, diet and medications along with Coumadin 3 mg once a day. She came in taking 4 mg a day. She will be seen in several days. FINAL DIAGNOSES: 1. Blood loss anemia. 2. Iatrogenic hyperprothrombinemia. 3. Congenital heart disease. 4. Alcoholism. OPERATIONS: None. CONSULTATION: None. She is improved. MMODL / IJN: [id number] /
[2020-01-16] MEDS ORDERED: WARFARIN 3 MG TAB PO SCH (18:00)
--- NOTE | 2020-01-17 14:42 | CDI ---
Documentation Clarification Form Date: 01/14/22 From: Jazmyn Horton CCS Phone: If you have a question about this query, please contact Kandy Dominguez, Roll Scale Man at [phone] between 8am and 5pm. Admit Date: 01/14/20 Discharge Date:01/16/20 Patient Name: Anita Wilcox Visit Number: [id number] ATTENTION: The Clinical Documentation Specialists (CDI) and [facility] Coding Staff appreciate your assistance in clarifying documentation. Please respond to the clarification below the line at the bottom and electronically sign. The CDI & [facility] Coding staff will review the response and follow-up if needed. Please note: Queries are made part of the Legal Health Record. If you have any questions, please contact the author of this message via ITS. Dear Dr. Wilson, Blood loss anemia is documented in the H&P, Discharge Summary. History/Risk Factors: Warfarin induced coagulopathy, GI bleed, Alcoholism, Alcoholic liver disease Clinical indicators: Dyspnea Hemoglobin: 5.4, 7.6, 7.5 Hematocrit: 18.1, 24.6, 23.9 Treatment: Transfuse two units RBC In order to capture the severity of condition, please clarify the acuity of blood loss anemia if known:. Acute blood loss anemia Acute on chronic blood loss anemia Chronic blood loss anemia Unable to determine Other, please specify MTDD
--- NOTE | 2020-01-17 14:53 | CDI ---
Documentation Clarification Form Date: 01/17/20 From: Jazmyn Horton CCS Phone: If you have a question about this query, please contact Kandy Dominguez, Retinal Surgeon at [phone] between 8am and 5pm. Admit Date: 01/14/20 Discharge Date:01/16/20 Patient Name: Anita Wilcox Visit Number: [id number] ATTENTION: The Clinical Documentation Specialists (CDI) and [facility] Coding Staff appreciate your assistance in clarifying documentation. Please respond to the clarification below the line at the bottom and electronically sign. The CDI & [facility] Coding staff will review the response and follow-up if needed. Please note: Queries are made part of the Legal Health Record. If you have any questions, please contact the author of this message via ITS. Dear Dr. Wilson, History of CHF is documented in the ED Note. History/Risk Factors: Hx Congenital heart disease, Alcoholism, Clinical Indicators: Dyspnea VS/Pulse OX: BP 98/45, RR 17, CT 102, O2 Sat 100 Chest X Ray: Mild cardiomegaly.No active cardiopulmonary disease.No change. Treatment: Continue home dose- Lasix 80 mg PO Daily In your professional opinion, can you please clarify the acuity and type of CHF if known? Systolic Heart Failure: Acute Chronic Acute on Chronic Diastolic Heart Failure: Acute Chronic Acute on Chronic Systolic & Diastolic Heart Failure: Acute Chronic Acute on Chronic Heart Failure Unable to Determine Other, please specify MTDD
--- NOTE | 2020-01-19 15:48 | MISC ---
MISCELLANOUS REPORT QUERY: Clarify acuity of blood loss anemia: Acute. Other: She has congenital heart disease, not congestive heart failure. She has had transposition of the great vessels. MMODL / IJN: [id number] /
== END 2020-01-16 14:43 | disposition home or self-care (01) | DRG 813 ==
LOC: EC 22:00 → 3SCARD 01-14 00:49
PROVIDERS: ADMIT Family Medicine; ATTEND Family Medicine
PROC: 30233N1 Transfusion of Nonautologous Red Blood Cells into Peripheral Vein, Percutaneous Approach (ICD-10-PCS; principal; 2020-01-14)
DX: D68.32 Hemorrhagic disorder due to extrinsic circulating anticoagulants (principal); K92.2 Gastrointestinal hemorrhage, unspecified; D62 Acute posthemorrhagic anemia; K70.9 Alcoholic liver disease, unspecified; F10.20 Alcohol dependence, uncomplicated; I48.91 Unspecified atrial fibrillation; F41.9 Anxiety disorder, unspecified; I45.10 Unspecified right bundle-branch block; D68.4 Acquired coagulation factor deficiency; T45.515A Adverse effect of anticoagulants, initial encounter; Z87.74 Personal history of (corrected) congenital malformations of heart and circulatory system; Z79.899 Other long term (current) drug therapy; Z79.01 Long term (current) use of anticoagulants; Z87.891 Personal history of nicotine dependence; Z91.19 Patient's noncompliance with other medical treatment and regimen
CPT/HCPCS: 36415; 36430; 71046; 80048; 80053; 80162; 82272; 83605; 84484; 85025; 85027; 85610; 85730; 86850; 86900; 86901; 86920; 93005; 96365; 96375; 99291

== ENCOUNTER 2020-02-02 21:01 | Inpatient (IN) | payer OTHER ==
[2020-02-02] MEDS ORDERED: ONDANSETRON 4 MG/2 ML VIAL IVP STA (21:16)
[2020-02-02] MEDS ORDERED: SODIUM CHLORIDE 0.9% 1,000 ML IV STA (21:16)
[2020-02-02] MEDS ORDERED: PANTOPRAZOLE 40 MG/10 ML VIAL IVP STA (21:17)
[2020-02-02] MEDS ORDERED: LORazepam 2 MG/ML INJ IV STA (21:18)
[2020-02-02 22:06] LABS: Anisocytosis Moderate; Basophils # (A) 0.2 k/uL (0-0.2); Basophils % (A) 1 %; Eosinophils % (A) 0 %; HCT 27.1 % (34.0-46.0); Hypochromasia Marked; Lymphocytes # (A) 1.8 k/uL (1.0-4.8); Lymphocytes % (A) 11 %; MCH 21.1 pg (25.0-35.0); MCHC 29.6 g/dL (31.0-37.0); Mean Platelet Volume 7.1; Microcytosis Marked; Monocytes # (A) 0.7 k/uL (0-1.0); Monocytes % (A) 4 %; Neutrophils # (A) 13.5 k/uL (1.3-7.7); Neutrophils % (A) 81 %; Platelet Count 565 k/uL (150-450); Poikilocytosis Marked; RBC 3.79 m/uL (3.80-5.40); WBC 16.7 k/uL (3.8-10.6)
[2020-02-02 22:12] LABS: MCV 71.4 fL (80.0-100.0)
[2020-02-02 22:14] LABS: ALT 18 U/L (4-34); AST 50 U/L (14-36); African American GFR (CKD) >90 (>60 ml/min/1.73 sqM); Albumin 4.5 g/dL (3.5-5.0); Alkaline Phosphatase 121 U/L (38-126); Anion Gap 21 mmol/L; Blood Urea Nitrogen <2 mg/dL (7-17); Calcium 8.9 mg/dL (8.4-10.2); Carbon Dioxide 19 mmol/L (22-30); Chloride 91 mmol/L (98-107); Glucose 121 mg/dL (74-99); Non-African American GFR(CKD) >90 (>60 ml/min/1.73 sqM); Potassium 3.3 mmol/L (3.5-5.1); Sodium 131 mmol/L (137-145); Total Bilirubin 1.4 mg/dL (0.2-1.3); Total Protein 7.5 g/dL (6.3-8.2)
[2020-02-02 22:21] LABS: Partial Thromboplastin Time 26.8 sec (22.0-30.0); Prothrombin Time 19.9 sec (9.0-12.0)
--- NOTE | 2020-02-02 22:24 | ED ---
Nausea/Vomiting/Diarrhea HPI - General Chief complaint: Nausea/Vomiting/Diarrhea Stated complaint: Vomiting Time Seen by Provider: 02/02/20 21:10 Source: patient Mode of arrival: ambulatory Limitations: no limitations - History of Present Illness Initial comments: 34-year-old female patient presents to the emergency department today for evaluation after having 3 episodes of bloody vomitus. Patient states that symptoms started about an hour ago. She does have a history of alcohol abuse. States she drinks 3 glasses of wine today. States she is having some upper abdominal discomfort. States she is also feeling very anxious due to being out of her anxiety medications. Patient denies history of hematemesis. 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 Patient denies any recent rash, fever, chills, cough, shortness of breath, chest pain, back pain, numbness, tingling, dizziness, weakness, hematuria, dysuria, urinary urgency, urinary frequency, headache, visual changes, or any other complaints. - Related Data Home Medications Medication Instructions Recorded Confirmed Digoxin [Digitek] 125 mcg PO DAILY 12/19/17 01/14/20 Spironolactone [Aldactone] 25 mg PO DAILY 12/19/17 01/14/20 Furosemide [Lasix] 80 mg PO DAILY 03/19/19 01/14/20 Potassium Chloride [Klor-Con 20] 40 meq PO BID 03/19/19 01/14/20 LORazepam [Ativan] 0.5 mg PO TID PRN 03/31/19 01/14/20 Loratadine [Claritin] 10 mg PO DAILY 11/04/19 01/14/20 Metoprolol Tartrate [Lopressor] 100 mg PO DAILY 12/02/19 01/14/20 Previous Rx's Medication Instructions Recorded Pantoprazole [Protonix] 40 mg PO AC-BID #60 tablet. 11/10/19 Warfarin Sodium [Coumadin] 3 mg PO DAILY 30 Days #30 tab 01/16/20 Warfarin [Coumadin] 3 mg PO DAILY@1800 #10 tab 01/16/20 Allergies Allergy/AdvReac Type Severity Reaction Status Date / Time Iodinated Contrast Media AdvReac TWITCHING Verified 01/14/20 08:44 [Iodinated Contrast- Oral and IV Dye] Review of Systems ROS Statement: Those systems with pertinent positive or pertinent negative responses have been documented in the HPI. ROS Other: All systems not noted in ROS Statement are negative. Past Medical History Past Medical History: Atrial Fibrillation, Heart Failure Additional Past Medical History / Comment(s): Afib with RVR, pt had transposition of great arteries as an , hypomagnesemia. History of Any Multi-Drug Resistant Organisms: ESBL Date of last positivie culture/infection: 02/25/17 ESBL-Klebsiella MDRO Source:: Urine Past Surgical History: No Surgical Hx Reported Additional Past Surgical History / Comment(s): open heart surg for transposition of great arteries, CARDIOVERTED FOR A- FIB twice Past Anesthesia/Blood Transfusion Reactions: No Reported Reaction Past Psychological History: Anxiety Smoking Status: Never smoker Past Alcohol Use History: None Reported Past Drug Use History: None Reported - Past Family History Mother Family Medical History: No Reported History Additional Family Medical History / Comment(s): Mother is healthy Father Family Medical History: No Reported History Additional Family Medical History / Comment(s): Father is healthy General Exam Limitations: no limitations General appearance: alert, in no apparent distress, other (Physical well- developed, well-nourished adult male patient in no acute distress. Vital signs upon presentation are temperature 97.9F, pulse 119, respirations 18, blood pressure 122/88, pulse ox 100% on room air.) Eye exam: Present: normal appearance, PERRL, EOMI. Absent: scleral icterus, conjunctival injection, periorbital swelling ENT exam: Present: normal exam, normal oropharynx, mucous membranes moist Respiratory exam: Present: normal lung sounds bilaterally. Absent: respiratory distress, wheezes, rales, rhonchi, stridor Cardiovascular Exam: Present: regular rate, normal rhythm, normal heart sounds. Absent: systolic murmur, diastolic murmur, rubs, gallop, clicks GI/Abdominal exam: Present: soft, tenderness (Midepigastric tenderness), normal bowel sounds. Absent: distended, guarding, rebound, rigid Neurological exam: Present: alert, oriented X3, CN II-XII intact Psychiatric exam: Present: normal affect, normal mood Skin exam: Present: warm, dry, intact, normal color. Absent: rash Course Vital Signs 02/02/20 02/02/20 21:04 22:35 Temperature 97.9 F 97.8 F Pulse Rate 119 H 110 H Respiratory 18 20 Rate Blood Pressure 122/88 110/69 O2 Sat by Pulse 100 99 Oximetry Medical Decision Making - Medical Decision Making 34-year-old female patient with past medical history significant for liver disease, coronary artery disease, A. fib, chronic alcohol abuse presents to the emergency department today for evaluation of abdominal pain and bloody emesis. Patient states she had 3 episodes of bright red bloody emesis prior to arrival. Physical examination did reveal midepigastric tenderness. Labs reviewed and did reveal decreased hemoglobin of 8.0. Sodium 131, potassium 3.3, lipase 5000. Patient alcohol level 300. Patient was given IV fluids, nausea medication, Protonix. She'll be admitted to the hospital for IV hydration and further evaluation. - Lab Data Result diagrams: 02/02/20 21:45 02/02/20 21:45 Lab Results 02/02/20 02/02/20 02/02/20 Range/Units 21:45 21:45 21:45 WBC 16.7 H (3.8-10.6) k/uL RBC 3.79 L (3.80-5.40) m/uL Hgb 8.0 L (11.4-16.0) gm/dL Hct 27.1 L (34.0-46.0) % MCV 71.4 L D (80.0-100.0) fL MCH 21.1 L (25.0-35.0) pg MCHC 29.6 L (31.0-37.0) g/dL RDW 20.0 H (11.5-15.5) % Plt Count 565 H (150-450) k/uL Neutrophils % 81 % Lymphocytes % 11 % Monocytes % 4 % Eosinophils % 0 % Basophils % 1 % Neutrophils # 13.5 H (1.3-7.7) k/uL Lymphocytes # 1.8 (1.0-4.8) k/uL Monocytes # 0.7 (0-1.0) k/uL Eosinophils # 0.0 (0-0.7) k/uL Basophils # 0.2 (0-0.2) k/uL Hypochromasia Marked Poikilocytosis Marked Anisocytosis Moderate Microcytosis Marked PT 19.9 H (9.0-12.0) sec INR 2.0 H (<1.2) APTT 26.8 (22.0-30.0) sec Sodium 131 L (137-145) mmol/L Potassium 3.3 L (3.5-5.1) mmol/L Chloride 91 L (98-107) mmol/L Carbon Dioxide 19 L (22-30) mmol/L Anion Gap 21 mmol/L BUN <2 L (7-17) mg/dL Creatinine 0.41 L (0.52-1.04) mg/dL Est GFR (CKD-EPI)AfAm >90 (>60 ml/min/1.73 sqM) Est GFR (CKD-EPI)NonAf >90 (>60 ml/min/1.73 sqM) Glucose 121 H (74-99) mg/dL Calcium 8.9 (8.4-10.2) mg/dL Magnesium (1.6-2.3) mg/dL Total Bilirubin 1.4 H (0.2-1.3) mg/dL AST 50 H (14-36) U/L ALT 18 (4-34) U/L Alkaline Phosphatase 121 (38-126) U/L Total Protein 7.5 (6.3-8.2) g/dL Albumin 4.5 (3.5-5.0) g/dL Lipase 5812 H (23-300) U/L Urine Color Urine Appearance (Clear) Urine pH (5.0-8.0) Ur Specific [place] (1.001-1.035) Urine Protein (Negative) Urine Glucose (UA) (Negative) Urine Ketones (Negative) Urine Blood (Negative) Urine Nitrite (Negative) Urine Bilirubin (Negative) Urine Urobilinogen (<2.0) mg/dL Ur Leukocyte Esterase (Negative) Urine WBC (0-5) /hpf Ur Squamous Epith Cells (0-4) /hpf Serum Alcohol 300 H* mg/dL Blood Type Blood Type Recheck Bld Type Recheck Status Antibody Screen Spec Expiration Date 02/02/20 02/02/20 02/02/20 Range/Units 21:45 21:49 22:28 WBC (3.8-10.6) k/uL RBC (3.80-5.40) m/uL Hgb (11.4-16.0) gm/dL Hct (34.0-46.0) % MCV (80.0-100.0) fL MCH (25.0-35.0) pg MCHC (31.0-37.0) g/dL RDW (11.5-15.5) % Plt Count (150-450) k/uL Neutrophils % % Lymphocytes % % Monocytes % % Eosinophils % % Basophils % % Neutrophils # (1.3-7.7) k/uL Lymphocytes # (1.0-4.8) k/uL Monocytes # (0-1.0) k/uL Eosinophils # (0-0.7) k/uL Basophils # (0-0.2) k/uL Hypochromasia Poikilocytosis Anisocytosis Microcytosis PT (9.0-12.0) sec INR (<1.2) APTT (22.0-30.0) sec Sodium (137-145) mmol/L Potassium (3.5-5.1) mmol/L Chloride (98-107) mmol/L Carbon Dioxide (22-30) mmol/L Anion Gap mmol/L BUN (7-17) mg/dL Creatinine (0.52-1.04) mg/dL Est GFR (CKD-EPI)AfAm (>60 ml/min/1.73 sqM) Est GFR (CKD-EPI)NonAf (>60 ml/min/1.73 sqM) Glucose (74-99) mg/dL Calcium (8.4-10.2) mg/dL Magnesium 1.6 (1.6-2.3) mg/dL Total Bilirubin (0.2-1.3) mg/dL AST (14-36) U/L ALT (4-34) U/L Alkaline Phosphatase (38-126) U/L Total Protein (6.3-8.2) g/dL Albumin (3.5-5.0) g/dL Lipase (23-300) U/L Urine Color Light Yellow Urine Appearance Clear (Clear) Urine pH 5.0 (5.0-8.0) Ur Specific [place] 1.003 (1.001-1.035) Urine Protein Negative (Negative) Urine Glucose (UA) Negative (Negative) Urine Ketones Negative (Negative) Urine Blood Small H (Negative) Urine Nitrite Negative (Negative) Urine Bilirubin Negative (Negative) Urine Urobilinogen <2.0 (<2.0) mg/dL Ur Leukocyte Esterase Trace H (Negative) Urine WBC <1 (0-5) /hpf Ur Squamous Epith Cells <1 (0-4) /hpf Serum Alcohol mg/dL Blood Type O Positive Blood Type Recheck O Pos Bld Type Recheck Status No Antibody Screen NEGATIVE Spec Expiration Date 02/05/2020 - 2349 Disposition Clinical Impression: Pancreatitis, Alcohol intoxication, Hematemesis, Hypokalemia Disposition: ADMITTED IP TO THIS [facility] Condition: Serious Referrals: Rodney Wilson MD [Primary Care Provider] - 1-2 days Decision to Admit Reason: Admit from EC Decision Date: 02/02/20 Decision Time: 23:07
[2020-02-02 22:25] LABS: Alcohol 300 mg/dL
[2020-02-02] MEDS ORDERED: SODIUM CHLORIDE 0.9% 1,000 ML IV ONE (22:59)
[2020-02-02] MEDS ORDERED: SODIUM CHLORIDE 0.9% 500 ML 500 ML IV ONE (22:59)
[2020-02-02] MEDS ORDERED: POTASSIUM CHLORIDE ER 20 MEQ TAB.ER PO STA (23:02)
[2020-02-02] MEDS ORDERED: ONDANSETRON 4 MG/2 ML VIAL IVP PRN (23:04)
[2020-02-02] MEDS ORDERED: NALOXONE 0.4 MG/ML 1 ML VIAL IV PRN (23:04)
[2020-02-02] MEDS ORDERED: LORazepam 2 MG/ML INJ IV PRN (23:06)
[2020-02-02] MEDS ORDERED: THIAMINE 100 MG/ML 2 ML VIAL IM STA (23:06)
[2020-02-02 23:10] LABS: Appearance,Urine Clear (Clear); Bilirubin,Urine Negative (Negative); Blood,Urine Small (Negative); Color,Urine Light Yellow; Glucose,Urine (UA) Negative (Negative); Ketones,Urine Negative (Negative); Leukocyte Esterase,Urine Trace (Negative); Nitrite,Urine Negative (Negative); Protein,Urine Negative (Negative); Specific Gravity,Urine 1.003 (1.001-1.035); Squamous Epithelial Cell,Urine <1 /hpf (0-4); Urobilinogen,Urine <2.0 mg/dL (<2.0); WBC,Urine <1 /hpf (0-5)
[2020-02-02] MEDS: SODIUM CHLORIDE 0.9% 1,000 ML IV SCH (23:34)
[2020-02-03] MEDS: LORazepam 2 MG/ML INJ IV PRN ×14 (00:07→22:19)
[2020-02-03] MEDS: THIAMINE 100 MG TAB PO SCH ×3 (00:17→15:55)
[2020-02-03] MEDS ORDERED: ONDANSETRON 4 MG/2 ML VIAL IVP STA (00:31)
[2020-02-03] MEDS ORDERED: diphenhydrAMINE 50 MG/ML 1 ML VIAL IVP STA (00:38)
[2020-02-03] MEDS ORDERED: TRIMETHOBENZAMIDE 100 MG/ML 2 ML VIAL IM STA (01:01)
[2020-02-03] MEDS: ONDANSETRON 4 MG/2 ML VIAL IVP PRN ×2 (06:52→14:23)
[2020-02-03 09:35] LABS: Anisocytosis Slight; Basophils # (A) 0.1 k/uL (0-0.2); Basophils % (A) 1 %; Eosinophils % (A) 0 %; HCT 24.4 % (34.0-46.0); HGB 7.2 gm/dL (11.4-16.0); Hypochromasia Marked; Lymphocytes # (A) 0.8 k/uL (1.0-4.8); Lymphocytes % (A) 6 %; MCH 21.7 pg (25.0-35.0); MCHC 29.5 g/dL (31.0-37.0); MCV 73.7 fL (80.0-100.0); Mean Platelet Volume 7.4; Microcytosis Marked; Monocytes # (A) 0.8 k/uL (0-1.0); Monocytes % (A) 6 %; Neutrophils # (A) 11.2 k/uL (1.3-7.7); Neutrophils % (A) 85 %; Platelet Count 453 k/uL (150-450); Poikilocytosis Marked; RBC 3.32 m/uL (3.80-5.40); RDW 19.7 % (11.5-15.5); WBC 13.2 k/uL (3.8-10.6)
[2020-02-03 09:37] LABS: ALT 16 U/L (4-34); AST 34 U/L (14-36); African American GFR (CKD) >90 (>60 ml/min/1.73 sqM); Albumin 3.9 g/dL (3.5-5.0); Alkaline Phosphatase 107 U/L (38-126); Anion Gap 13 mmol/L; Blood Urea Nitrogen <2 mg/dL (7-17); Calcium 8.7 mg/dL (8.4-10.2); Carbon Dioxide 19 mmol/L (22-30); Chloride 104 mmol/L (98-107); Glucose 110 mg/dL (74-99); Non-African American GFR(CKD) >90 (>60 ml/min/1.73 sqM); Potassium 3.5 mmol/L (3.5-5.1); Sodium 136 mmol/L (137-145); Total Bilirubin 2.1 mg/dL (0.2-1.3); Total Protein 6.9 g/dL (6.3-8.2)
[2020-02-03] MEDS: SODIUM CHLORIDE 0.9% 1,000 ML IV SCH ×2 (09:59→20:23)
[2020-02-03] MEDS ORDERED: METOPROLOL TARTRATE 50 MG TAB PO SCH (10:15)
[2020-02-03] MEDS: PANTOPRAZOLE 40 MG TABLET PO SCH ×2 (10:24→15:55)
[2020-02-03] MEDS: DIGOXIN 125 MCG TAB PO SCH (10:24)
[2020-02-03] MEDS: FUROSEMIDE 80 MG TAB PO SCH (10:34)
[2020-02-03] MEDS: SPIRONOLACTONE 25 MG TAB PO SCH (10:34)
[2020-02-03] MEDS: POTASSIUM CHLORIDE ER 20 MEQ TAB.ER PO SCH ×2 (11:11→20:21)
[2020-02-03] MEDS: LORATADINE 10 MG TAB PO SCH (11:12)
[2020-02-03] MEDS ORDERED: DILTIAZEM 5 MG/ML 10 ML VIAL IVP STA (11:38)
[2020-02-03] MEDS: diphenhydrAMINE 50 MG/ML 1 ML VIAL IVP PRN ×2 (12:12→18:33)
[2020-02-03] MEDS: METOPROLOL TARTRATE 50 MG TAB PO SCH ×2 (13:37→20:22)
[2020-02-03 16:15] LABS: Anisocytosis Slight; Basophils # (A) 0.1 k/uL (0-0.2); Basophils % (A) 1 %; Eosinophils % (A) 0 %; HCT 24.5 % (34.0-46.0); HGB 7.2 gm/dL (11.4-16.0); Hypochromasia Marked; Lymphocytes # (A) 0.9 k/uL (1.0-4.8); Lymphocytes % (A) 6 %; MCH 21.7 pg (25.0-35.0); MCHC 29.3 g/dL (31.0-37.0); MCV 74.2 fL (80.0-100.0); Mean Platelet Volume 8.3; Microcytosis Moderate; Monocytes # (A) 0.9 k/uL (0-1.0); Monocytes % (A) 6 %; Neutrophils # (A) 12.6 k/uL (1.3-7.7); Neutrophils % (A) 86 %; Platelet Count 489 k/uL (150-450); Poikilocytosis Marked; RBC 3.29 m/uL (3.80-5.40); RDW 18.9 % (11.5-15.5); WBC 14.8 k/uL (3.8-10.6)
[2020-02-03 16:21] LABS: INR 1.9 (<1.2); Prothrombin Time 18.8 sec (9.0-12.0)
--- NOTE | 2020-02-03 16:38 | HP ---
HISTORY AND PHYSICAL CHIEF COMPLAINT: Epigastric pain and alcohol intoxication. HISTORY OF PRESENT ILLNESS: This is another admission recently for this 34-year-old white female who has congenital heart disease. She received surgeries as a youth for transposition of great vessels. She is fairly noncompliant individual and does not keep appointments and more importantly, fails to follow her PT/INR closely. She was recently in the hospital with anemia and excessive PT and INR. She came into the hospital with epigastric pain and was found to have an elevated white lipase. She was intoxicated. REVIEW OF SYSTEMS: She denies any blackouts, seizures, neurologic problems, cough, hemoptysis, chest pain, orthopnea, hematuria, nausea, vomiting, hematemesis, melena, hematochezia, jaundice, renal failure, etc. Past medical history, family history and personal and social histories are otherwise unremarkable and unchanged from recent admitting and discharge summaries. She is allergic to LEXAPRO. MEDICATIONS: Include Ativan 0.5 t.i.d. p.r.n., Coumadin 4 mg once a day, spironolactone 25 mg once a day, Lanoxin 0.125 once a day, pantoprazole 40 mg twice a day, loratadine 10 mg once a day, magnesium 400 mg twice a day, KCl 20 mEq twice a day, Toprol 100 mg once a day, furosemide 40 mg once a day. She has smoked in the past but not recently. PHYSICAL EXAMINATION: Blood pressure is 102/62 with a pulse of 120, respirations were 35 and she is afebrile. In general, she appeared to be intoxicated and agitated. Skin color is normal. Skin is warm and dry. Lymph nodes not enlarged. Head, ears, eyes, nose, mouth, and throat were normal. Neck veins not distended. Thyroid not enlarged. Chest is clear. Cardiac exam demonstrates normal sinus rhythm with tachycardia. Abdomen is soft and she is tender over the epigastrium. Bowel sounds are not heard. Extremities: Normal. Neurologically, she is intact. She is admitted to the hospital diagnoses of: 1. Pancreatitis. 2. Alcohol intoxication. 3. Congenital heart disease. PLAN: 1. Bed rest. 2. IV fluids. 3. CIWA protocol. 4. Monitor abdominal pain and lipase. MMODL / IJN: [id number] /
[2020-02-03] MEDS ORDERED: PANTOPRAZOLE 40 MG TABLET PO SCH (17:30)
[2020-02-03] MEDS ORDERED: WARFARIN 3 MG TAB PO SCH (18:00)
[2020-02-03] MEDS ORDERED: POTASSIUM CHLORIDE ER 20 MEQ TAB.ER PO SCH (21:00)
[2020-02-03 22:45] LABS: Anisocytosis Moderate; Basophils # (A) 0.1 k/uL (0-0.2); Basophils % (A) 1 %; Eosinophils % (A) 0 %; HCT 23.2 % (34.0-46.0); Hypochromasia Marked; Lymphocytes # (A) 1.5 k/uL (1.0-4.8); Lymphocytes % (A) 9 %; MCH 21.5 pg (25.0-35.0); MCHC 29.9 g/dL (31.0-37.0); MCV 71.8 fL (80.0-100.0); Mean Platelet Volume 8.8; Microcytosis Marked; Monocytes # (A) 0.9 k/uL (0-1.0); Monocytes % (A) 5 %; Neutrophils % (A) 83 %; Platelet Count 428 k/uL (150-450); Poikilocytosis Marked; RBC 3.22 m/uL (3.80-5.40); RDW 20.3 % (11.5-15.5); WBC 16.9 k/uL (3.8-10.6)
[2020-02-03 23:19] LABS: HGB 6.9 gm/dL (11.4-16.0)
[2020-02-03] MEDS: LORazepam 0.5 MG TAB PO PRN (23:35)
[2020-02-04] MEDS: LORazepam 2 MG/ML INJ IV PRN ×11 (00:45→22:33)
[2020-02-04] MEDS: diphenhydrAMINE 50 MG/ML 1 ML VIAL IVP PRN ×4 (00:45→20:26)
[2020-02-04] MEDS: ONDANSETRON 4 MG/2 ML VIAL IVP PRN ×3 (04:30→16:33)
[2020-02-04] MEDS: SODIUM CHLORIDE 0.9% 1,000 ML IV SCH ×2 (06:12→08:35)
[2020-02-04] MEDS: THIAMINE 100 MG TAB PO SCH ×2 (06:26→16:32)
[2020-02-04] MEDS: PANTOPRAZOLE 40 MG TABLET PO SCH ×2 (06:26→16:32)
[2020-02-04 08:04] LABS: INR 1.8 (<1.2); Prothrombin Time 17.4 sec (9.0-12.0)
[2020-02-04 08:08] LABS: Anisocytosis Moderate; Basophils # (A) 0.1 k/uL (0-0.2); Basophils % (A) 1 %; Eosinophils # (A) 0.1 k/uL (0-0.7); Eosinophils % (A) 1 %; HCT 27.5 % (34.0-46.0); HGB 8.3 gm/dL (11.4-16.0); Hypochromasia Marked; Lymphocytes # (A) 1.8 k/uL (1.0-4.8); Lymphocytes % (A) 12 %; MCV 76.5 fL (80.0-100.0); Microcytosis Moderate; Monocytes % (A) 6 %; Neutrophils # (A) 12.2 k/uL (1.3-7.7); Neutrophils % (A) 78 %; Platelet Count 378 k/uL (150-450); Poikilocytosis Marked; RDW 20.6 % (11.5-15.5); WBC 15.8 k/uL (3.8-10.6)
[2020-02-04] MEDS: DIGOXIN 125 MCG TAB PO SCH (08:36)
[2020-02-04] MEDS: POTASSIUM CHLORIDE ER 20 MEQ TAB.ER PO SCH ×2 (08:37→20:25)
[2020-02-04] MEDS: SPIRONOLACTONE 25 MG TAB PO SCH (08:37)
[2020-02-04] MEDS: METOPROLOL TARTRATE 50 MG TAB PO SCH ×2 (08:37→20:25)
[2020-02-04] MEDS: FUROSEMIDE 80 MG TAB PO SCH (08:37)
[2020-02-04] MEDS: LORATADINE 10 MG TAB PO SCH (08:43)
[2020-02-04] MEDS ORDERED: METOPROLOL TARTRATE 50 MG TAB PO SCH (09:00)
[2020-02-04] MEDS ORDERED: DIGOXIN 125 MCG TAB PO SCH (09:00)
[2020-02-04] MEDS ORDERED: LORATADINE 10 MG TAB PO SCH (09:00)
[2020-02-04] MEDS ORDERED: SPIRONOLACTONE 25 MG TAB PO SCH (09:00)
[2020-02-04] MEDS ORDERED: FUROSEMIDE 80 MG TAB PO SCH (09:00)
--- NOTE | 2020-02-04 09:13 | P.CRDCN ---
History of Present Illness History of present illness: HISTORY OF PRESENTING ILLNESS This is a pleasant 34-year-old female past medical history significant for congenital heart disease status post surgical repair at the age of 3 months for transposition of the great vessels, paroxysmal atrial fibrillation on long- term anticoagulation, hypertension, regular alcohol use and anemia. She follows regularly with Dr. Hanna at the [facility]. She presented to the hospital with complaints of vomiting bright red blood 3 days ago. This was associated with epigastric discomfort. She was intoxicated upon admission. She is seen and examined resting comfortably lying flat in bed in no acute distress. She has had no further vomiting. Hemoglobin on admission was 8.0 then dropped to 7.2 and last night was 6.9. She received one unit of packed red blood cells repeat hemoglobin this morning 8.3. INR 1.8. She did receive a dose of Coumadin last evening. EKG on arrival reveals sinus mechanism with first-degree AV block, left axis deviation and right bundle branch block. Current daily cardiac medications include digoxin 125 g daily, Lasix 80 mg daily, Lopressor 100 mg daily, Aldactone 25 mg daily and Coumadin 4 mg at bedtime. Most recent echocardiogram obtained January 2019 reveals preserved LV systolic function with ejection fraction 55-60%. REVIEW OF SYSTEMS At the time of my exam: CONSTITUTIONAL: Denies fever or chills. CARDIOVASCULAR: Denies chest pain, shortness of breath, orthopnea, PND or palpit ations. RESPIRATORY: Denies cough. GASTROINTESTINAL: Denies abdominal pain, diarrhea, constipation, nausea or vomiting. MUSCULOSKELETAL: Denies myalgias. NEUROLOGIC: Denies numbness, tingling or weakness. ENDOCRINE: Denies fatigue, weight change, polydipsia or polyurina. GENITOURINARY: Denies burning, hematuria or urgency with micturation. HEMATOLOGIC: Denies history of anemia or bleeding. PHYSICAL EXAMINATION Blood pressure 110/66 heart rate 80 afebrile and maintaining oxygen saturation on room air. CONSTITUTIONAL: No apparent distress. Generalized pallor. HEENT: Head is normocephalic. Pupils are equal, round. Sclerae anicteric. Mucous membranes of the mouth are moist. No JVD. No carotid bruit. CHEST EXAMINATION: Coarse sounding. No rales or wheezes. No chest wall tenderness is noted on palpation or with deep breathing. HEART EXAMINATION: Irregular rate and rhythm. S1, S2 heard. Systolic ejection murmur at the left sternal border, no gallops or rub. ABDOMEN: Soft, nontender. Positive bowel sounds. EXTREMITIES: 2+ peripheral pulses, no lower extremity edema and no calf tend erness. NEUROLOGIC EXAMINATION: Patient is awake, alert and oriented x3. ASSESSMENT Acute GI bleeding requiring blood transfusion Paroxysmal atrial fibrillation on long-term anticoagulation Pancreatitis Anemia Hypertension Congenital heart disease status post surgery at 3 months of age PLAN Hold Coumadin. Recommend GI evaluation. Complete alcohol cessation recommended. Thank you kindly for this consultation. Nurse Practitioner note has been reviewed, I agree with a documented findings and plan of care. Patient was seen and examined. Past Medical History Past Medical History: Atrial Fibrillation, Heart Failure Additional Past Medical History / Comment(s): Afib with RVR, pt had transposition of great arteries as an , hypomagnesemia. Recent hospitalization for anemia. History of Any Multi-Drug Resistant Organisms: ESBL Date of last positivie culture/infection: 02/25/17 ESBL-Klebsiella MDRO Source:: Urine Past Surgical History: No Surgical Hx Reported Additional Past Surgical History / Comment(s): open heart surg for transposition of great arteries, CARDIOVERTED FOR A- FIB twice Past Anesthesia/Blood Transfusion Reactions: No Reported Reaction Past Psychological History: Anxiety Additional Psychological History / Comment(s): Pt resides alone. She is employed. Smoking Status: Never smoker Past Alcohol Use History: None Reported Additional Past Alcohol Use History / Comment(s): Pt started smoking in 2002 and quit in 2017. Pt states she used to be a heavy drinker, states she currently has 2-3 glasses of wine daily Past Drug Use History: None Reported - Past Family History Mother Family Medical History: No Reported History Additional Family Medical History / Comment(s): Mother is healthy Father Family Medical History: No Reported History Additional Family Medical History / Comment(s): Father is healthy Medications and Allergies Home Medications Medication Instructions Recorded Confirmed Type Digoxin [Digitek] 125 mcg PO DAILY 12/19/17 02/03/20 History Spironolactone [Aldactone] 25 mg PO DAILY 12/19/17 02/03/20 History Furosemide [Lasix] 80 mg PO DAILY 03/19/19 02/03/20 History Potassium Chloride [Klor-Con 20] 40 meq PO BID 03/19/19 02/03/20 History LORazepam [Ativan] 0.5 mg PO TID PRN 03/31/19 02/03/20 History Loratadine [Claritin] 10 mg PO DAILY 11/04/19 02/03/20 History Pantoprazole [Protonix] 40 mg PO AC-BID #60 tablet. 11/10/19 02/03/20 Rx Metoprolol Tartrate [Lopressor] 100 mg PO DAILY 12/02/19 02/03/20 History Warfarin Sodium [Coumadin] 4 mg PO HS 02/03/20 02/03/20 History Allergies Allergy/AdvReac Type Severity Reaction Status Date / Time Iodinated Contrast Media AdvReac TWITCHING Verified 02/03/20 12:03 [Iodinated Contrast- Oral and IV Dye] Physical Exam Vitals: Vital Signs Temp Pulse Pulse Resp BP BP Pulse Ox 02/04/20 06:57 97.9 F 86 16 110/78 95 02/04/20 04:00 97.9 F 83 17 142/65 94 L 02/04/20 01:21 97.9 F 85 16 105/59 95 02/04/20 00:51 97.9 F 86 18 109/67 95 02/04/20 00:41 98 F 86 16 121/60 95 02/03/20 23:00 98 F 98 18 113/63 98 02/03/20 15:57 99 F 107 H 18 131/71 94 L 02/03/20 15:50 107 H 18 02/03/20 12:01 118 H 18 141/75 93 L 02/03/20 09:00 98.9 F 120 H 18 134/71 92 L 02/03/20 08:46 117 H 20 126/95 98 02/03/20 08:44 117 H 20 126/95 98 Intake and Output 02/03/20 02/04/20 02/04/20 22:59 06:59 14:59 Intake Total 310 Balance 310 Intake: Oral 0 Blood Product 310 Rc Pheresis As-3 Unit 310 [id number] Other: Voiding Method Toilet Toilet # Voids 1 1 Weight 61.1 kg Results 02/04/20 07:18 02/03/20 09:00 Cardiac Enzymes 02/03/20 Range/Units 09:00 AST 34 (14-36) U/L Coagulation 02/03/20 02/04/20 Range/Units 15:39 07:18 PT 18.8 H 17.4 H (9.0-12.0) sec CBC 02/03/20 02/03/20 02/03/20 Range/Units 09:00 15:39 22:23 WBC 13.2 H 14.8 H 16.9 H (3.8-10.6) k/uL RBC 3.32 L 3.29 L 3.22 L (3.80-5.40) m/uL Hgb 7.2 L 7.2 L 6.9 L* (11.4-16.0) gm/dL Hct 24.4 L 24.5 L 23.2 L (34.0-46.0) % Plt Count 453 H 489 H 428 (150-450) k/uL 02/04/20 Range/Units 07:18 WBC 15.8 H (3.8-10.6) k/uL RBC 3.60 L (3.80-5.40) m/uL Hgb 8.3 L (11.4-16.0) gm/dL Hct 27.5 L (34.0-46.0) % Plt Count 378 (150-450) k/uL Comprehensive Metabolic Panel 02/03/20 Range/Units 09:00 Sodium 136 L (137-145) mmol/L Potassium 3.5 (3.5-5.1) mmol/L Chloride 104 (98-107) mmol/L Carbon Dioxide 19 L (22-30) mmol/L BUN <2 L (7-17) mg/dL Creatinine 0.43 L (0.52-1.04) mg/dL Glucose 110 H (74-99) mg/dL Calcium 8.7 (8.4-10.2) mg/dL AST 34 (14-36) U/L ALT 16 (4-34) U/L Alkaline Phosphatase 107 (38-126) U/L Total Protein 6.9 (6.3-8.2) g/dL Albumin 3.9 (3.5-5.0) g/dL Current Medications Generic Name Dose Route Start Last Admin Trade Name Freq PRN Reason Stop Dose Admin Digoxin 125 mcg 02/03/20 10:07 02/03/20 10:24 Lanoxin PO 125 mcg DAILY MICHAEL Administration Diphenhydramine HCl 50 mg 02/03/20 11:39 02/04/20 06:25 Benadryl IVP 50 mg Q6HR PRN Administration Allergy Symptoms Furosemide 80 mg 02/03/20 10:15 02/03/20 10:34 Lasix PO 80 mg DAILY MICHAEL Administration Sodium Chloride 1,000 mls @ 100 mls/hr 02/02/20 23:15 02/04/20 06:12 Saline 0.9% IV Not Given .Q10H MICHAEL Loratadine 10 mg 02/03/20 10:15 02/03/20 11:12 Claritin PO Not Given DAILY MICHAEL Lorazepam 1 mg 02/02/20 23:06 02/04/20 06:25 Ativan IV 1 mg Q2HR PRN Administration CIWA 8 or 9 Lorazepam 1 mg 02/02/20 23:06 02/03/20 12:13 Ativan IV 1 mg Q1HR PRN Administration CIWA 10 to 15 Lorazepam 2 mg 02/02/20 23:06 Ativan IV 02/04/20 23:06 Q10M PRN CIWA 16 or higher Lorazepam 0.5 mg 02/03/20 09:57 02/03/20 23:35 Ativan PO 0.5 mg TID PRN Administration Anxiety Metoprolol Tartrate 100 mg 02/03/20 13:30 02/03/20 20:22 Lopressor PO 100 mg BID MICHAEL Administration Naloxone HCl 0.2 mg 02/02/20 23:04 Narcan IV Q2M PRN Opioid Reversal Ondansetron HCl 4 mg 02/03/20 00:31 02/04/20 04:30 Zofran IVP 4 mg Q6H PRN Administration Nausea And Vomiting Pantoprazole Sodium 40 mg 02/03/20 10:08 02/04/20 06:26 Protonix PO 40 mg AC-BID MICHAEL Administration Potassium Chloride 40 meq 02/03/20 10:15 02/03/20 20:21 K-Dur 20 PO 40 meq BID MICHAEL Administration Spironolactone 25 mg 02/03/20 10:15 02/03/20 10:34 Aldactone PO 25 mg DAILY MICHAEL Administration Thiamine HCl 100 mg 02/02/20 17:30 02/04/20 06:26 Vitamin B-1 PO 100 mg BID-W/MEALS MICHAEL Administration Intake and Output 02/03/20 02/04/20 02/04/20 22:59 06:59 14:59 Intake Total 310 Balance 310 Intake: Oral 0 Blood Product 310 Rc Pheresis As-3 Unit 310 [id number] Other: Voiding Method Toilet Toilet # Voids 1 1 Weight 61.1 kg 02/04/20 07:18 02/03/20 09:00
--- NOTE | 2020-02-04 09:38 | XR ---
EXAMINATION TYPE: XR chest 2V DATE OF EXAM: 02/04/2020 HISTORY: fatigue, leukocytosis. REFERENCE: Previous study dated 01/13/2020. FINDINGS: The heart is enlarged. There is a worsening right perihilar infiltrate. The left lung is cl ear. Pleural spaces are clear. IMPRESSION: 1. CARDIOMEGALY. 2. WORSENING RIGHT PERIHILAR INFILTRATE.
--- NOTE | 2020-02-04 09:39 | XR ---
EXAMINATION TYPE: XR KUB , DATE OF EXAM ORDERED: 02/04/2020 HISTORY: epigastric pain. COMPARISON: None. FINDINGS: There is increased opacity in the left lung base. This may be due to cardiac enlargement. I could not exclude pleural or parenchymal disease. Within the abdomen, the abdominal gas pattern is within normal limits. There is some high density mat erial in the left midabdomen which may represent ingested medication. There is no evidence of obstruc tion or free air. No unusual calcifications are seen. IMPRESSION: 1. NO ACUTE INTRA-ABDOMINAL ABNORMALITY. 2. INCREASED OPACITY AT THE LEFT LUNG BASE. A CHEST X-RAY, PA AND LATERAL FILMS WOULD BE SUGGESTED.
[2020-02-04 15:17] LABS: Anisocytosis Slight; Basophils # (A) 0.1 k/uL (0-0.2); Basophils % (A) 1 %; Eosinophils # (A) 0.3 k/uL (0-0.7); Eosinophils % (A) 2 %; HCT 30.1 % (34.0-46.0); HGB 8.9 gm/dL (11.4-16.0); Hypochromasia Marked; Lymphocytes # (A) 2.6 k/uL (1.0-4.8); Lymphocytes % (A) 13 %; MCH 23.1 pg (25.0-35.0); MCHC 29.7 g/dL (31.0-37.0); MCV 77.7 fL (80.0-100.0); Mean Platelet Volume 7.5; Microcytosis Moderate; Monocytes # (A) 0.9 k/uL (0-1.0); Monocytes % (A) 5 %; Neutrophils # (A) 16.4 k/uL (1.3-7.7); Neutrophils % (A) 79 %; Platelet Count 521 k/uL (150-450); Poikilocytosis Marked; RBC 3.87 m/uL (3.80-5.40); RDW 19.7 % (11.5-15.5); WBC 20.8 k/uL (3.8-10.6)
[2020-02-04 19:21] LABS: Anisocytosis Moderate; Basophils # (A) 0.1 k/uL (0-0.2); Basophils % (A) 1 %; Eosinophils # (A) 0.3 k/uL (0-0.7); Eosinophils % (A) 2 %; HCT 28.6 % (34.0-46.0); HGB 8.6 gm/dL (11.4-16.0); Hypochromasia Marked; Lymphocytes # (A) 2.2 k/uL (1.0-4.8); Lymphocytes % (A) 13 %; MCH 23.2 pg (25.0-35.0); MCV 77.6 fL (80.0-100.0); Mean Platelet Volume 8.1; Microcytosis Moderate; Monocytes # (A) 0.9 k/uL (0-1.0); Monocytes % (A) 5 %; Neutrophils # (A) 13.4 k/uL (1.3-7.7); Neutrophils % (A) 78 %; Platelet Count 450 k/uL (150-450); Poikilocytosis Marked; RBC 3.69 m/uL (3.80-5.40); RDW 20.1 % (11.5-15.5); WBC 17.2 k/uL (3.8-10.6)
[2020-02-04 19:30] LABS: ALT 16 U/L (4-34); AST 46 U/L (14-36); African American GFR (CKD) >90 (>60 ml/min/1.73 sqM); Albumin 3.7 g/dL (3.5-5.0); Alkaline Phosphatase 124 U/L (38-126); Anion Gap 9 mmol/L; Blood Urea Nitrogen 6 mg/dL (7-17); Calcium 8.7 mg/dL (8.4-10.2); Carbon Dioxide 24 mmol/L (22-30); Chloride 103 mmol/L (98-107); Glucose 89 mg/dL (74-99); Non-African American GFR(CKD) >90 (>60 ml/min/1.73 sqM); Potassium 3.8 mmol/L (3.5-5.1); Sodium 136 mmol/L (137-145); Total Bilirubin 5.7 mg/dL (0.2-1.3); Total Protein 6.7 g/dL (6.3-8.2)
[2020-02-05] MEDS: LORazepam 2 MG/ML INJ IV PRN ×7 (00:29→23:17)
[2020-02-05] MEDS: SODIUM CHLORIDE 0.9% 1,000 ML IV SCH (05:58)
[2020-02-05] MEDS: PANTOPRAZOLE 40 MG TABLET PO SCH ×2 (05:59→20:34)
[2020-02-05] MEDS: THIAMINE 100 MG TAB PO SCH ×2 (05:59→20:35)
[2020-02-05] MEDS: diphenhydrAMINE 50 MG/ML 1 ML VIAL IVP PRN ×2 (06:44→16:08)
[2020-02-05] MEDS: POTASSIUM CHLORIDE ER 20 MEQ TAB.ER PO SCH ×2 (09:19→20:34)
[2020-02-05] MEDS: DIGOXIN 125 MCG TAB PO SCH (09:19)
[2020-02-05] MEDS: METOPROLOL TARTRATE 50 MG TAB PO SCH ×2 (09:19→20:35)
[2020-02-05] MEDS: SPIRONOLACTONE 25 MG TAB PO SCH (09:19)
[2020-02-05] MEDS: FUROSEMIDE 80 MG TAB PO SCH (09:19)
[2020-02-05] MEDS: LORATADINE 10 MG TAB PO SCH (09:19)
[2020-02-05] MEDS: HYDROmorphone 0.5 MG/0.5 ML SYRINGE IVP PRN ×2 (11:09→20:35)
[2020-02-05 11:24] LABS: ALT 16 U/L (4-34); AST 46 U/L (14-36); African American GFR (CKD) >90 (>60 ml/min/1.73 sqM); Albumin 3.5 g/dL (3.5-5.0); Alkaline Phosphatase 126 U/L (38-126); Anion Gap 12 mmol/L; Blood Urea Nitrogen 7 mg/dL (7-17); Calcium 8.4 mg/dL (8.4-10.2); Carbon Dioxide 20 mmol/L (22-30); Chloride 104 mmol/L (98-107); Glucose 73 mg/dL (74-99); Non-African American GFR(CKD) >90 (>60 ml/min/1.73 sqM); Sodium 136 mmol/L (137-145); Total Bilirubin 5.2 mg/dL (0.2-1.3); Total Protein 6.6 g/dL (6.3-8.2)
[2020-02-05 12:06] LABS: Anisocytosis Moderate; HCT 28.1 % (34.0-46.0); HGB 8.1 gm/dL (11.4-16.0); Hypochromasia Marked; MCH 22.9 pg (25.0-35.0); MCHC 28.7 g/dL (31.0-37.0); MCV 79.7 fL (80.0-100.0); Mean Platelet Volume 8.4; Microcytosis Slight; Platelet Count 385 k/uL (150-450); Poikilocytosis Marked; RBC 3.53 m/uL (3.80-5.40); RDW 20.2 % (11.5-15.5)
[2020-02-05 12:14] LABS: Hemoglobin A1C 4.6 % (4.0-6.0)
--- NOTE | 2020-02-05 12:16 | P.PN ---
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 She f diane with cardiology at [facility]. Presented to the hospital with symptoms of vomiting bright red blood for 3 days. She had associated epigastric and abdominal discomfort. Laboratory data from today was reviewed, white blood cell count 15.6, hemoglobin 8.1, platelet count 385. Sodium 136, potassium 4.0, BUN 7, creatinine 0.6. Her lipase today is up to 1026. Patient continues to be in atrial fibrillation this morning, her heart rate is under adequate control. She didn't sleep well last night according to her, she feels okay today other than tired. Objective - Vital Signs Vital signs: Vital Signs Temp 98.6 F 02/05/20 10:49 Pulse 76 02/05/20 10:49 Resp 16 02/05/20 10:49 BP 102/58 02/05/20 10:49 Pulse Ox 92 L 02/05/20 10:49 Intake & Output 02/04/20 02/05/20 02/05/20 18:59 06:59 18:59 Intake Total 800 Output Total 400 550 Balance 400 -550 Intake: Intake, IV Titration 800 Amount Sodium Chloride 0.9% 1, 800 000 ml @ 100 mls/hr IV . Q10H [facility] Rx#:[id number] Output: Urine 400 550 Other: Voiding Method Toilet Toilet Toilet # Voids 1 1 # Bowel Movements 1 - Exam PHYSICAL EXAMINATION Blood pressure 102/60 heart rate 70 afebrile and maintaining oxygen saturation on room air. CONSTITUTIONAL: No apparent distress. Generalized pallor. HEENT: Head is normocephalic. Pupils are equal, round. Sclerae anicteric. Mucous membranes of the mouth are moist. No JVD. No carotid bruit. CHEST EXAMINATION: Coarse sounding. No rales or wheezes. No chest wall tenderness is noted on palpation or with deep breathing. HEART EXAMINATION: Irregular rate and rhythm. S1, S2 heard. Systolic ejection murmur at the left sternal border, no gallops or rub. ABDOMEN: Soft, nontender. Positive bowel sounds. EXTREMITIES: 2+ peripheral pulses, no lower extremity edema and no calf t enderness. NEUROLOGIC EXAMINATION: Patient is awake, alert and oriented x3. - Labs CBC & Chem 7: 02/05/20 10:47 02/05/20 10:47 Labs: Abnormal Lab Results - Last 24 Hours (Table) 02/04/20 02/04/20 02/04/20 Range/Units 14:43 18:39 18:39 WBC 20.8 H 17.2 H (3.8-10.6) k/uL RBC 3.69 L (3.80-5.40) m/uL Hgb 8.9 L 8.6 L (11.4-16.0) gm/dL Hct 30.1 L 28.6 L (34.0-46.0) % MCV 77.7 L 77.6 L (80.0-100.0) fL MCH 23.1 L 23.2 L (25.0-35.0) pg MCHC 29.7 L 30.0 L (31.0-37.0) g/dL RDW 19.7 H 20.1 H (11.5-15.5) % Plt Count 521 H (150-450) k/uL Neutrophils # 16.4 H 13.4 H (1.3-7.7) k/uL Sodium 136 L (137-145) mmol/L Carbon Dioxide (22-30) mmol/L BUN 6 L (7-17) mg/dL Glucose (74-99) mg/dL Total Bilirubin 5.7 H (0.2-1.3) mg/dL AST 46 H (14-36) U/L Lipase 892 H (23-300) U/L 02/05/20 02/05/20 Range/Units 10:47 10:47 WBC 15.6 H (3.8-10.6) k/uL RBC 3.53 L (3.80-5.40) m/uL Hgb 8.1 L (11.4-16.0) gm/dL Hct 28.1 L (34.0-46.0) % MCV 79.7 L (80.0-100.0) fL MCH 22.9 L (25.0-35.0) pg MCHC 28.7 L (31.0-37.0) g/dL RDW 20.2 H (11.5-15.5) % Plt Count (150-450) k/uL Neutrophils # (1.3-7.7) k/uL Sodium 136 L (137-145) mmol/L Carbon Dioxide 20 L (22-30) mmol/L BUN (7-17) mg/dL Glucose 73 L (74-99) mg/dL Total Bilirubin 5.2 H (0.2-1.3) mg/dL AST 46 H (14-36) U/L Lipase 1026 H (23-300) U/L Assessment and Plan Plan: ASSESSMENT and plan #1Acute GI bleeding requiring blood transfusion #2Paroxysmal atrial fibrillation on long-term anticoagulation #3Pancreatitis #4Anemia #5Hypertension #6Congenital heart disease status post surgery at 3 months of age Plan We'll continue to hold the patient's Coumadin, await GI recommendation. Further recommendations to follow. DNP note has been reviewed, I agree with a documented findings and plan of care. Patient was seen and examined.
[2020-02-05 13:13] LABS: Eosinophils # (M) 0.31 k/uL (0-0.7); Lymphocytes # (M) 2.16 k/uL (1.0-4.8); Monocytes # (M) 0.46 k/uL (0-1.0); Neutrophils # (M) 12.63 k/uL (1.3-7.7); Neutrophils % (M) 82 %; Nucleated Red Blood Cells 1 /100 WBC (0-0); Total Cells Counted 200; WBC 15.4 k/uL (3.8-10.6)
[2020-02-05 13:14] LABS: Polychromasia Present
--- NOTE | 2020-02-05 15:17 | CDI ---
Documentation Clarification Form Date: 02/05/2020 03:00:06 PM From: Yolanda Thurman RN CCDS Admit Date: 02/03/2020 02:12:00 AM Patient Name: Anita Wilcox Visit Number: [id number] Discharge Date: ATTENTION: The Clinical Documentation Specialists (CDI) and [facility] Coding Staff appreciate your assistance in clarifying documentation. Please respond to the clarification below the line at the bottom and electronically sign. The CDI & [facility] Coding staff will review the response and follow-up if needed. Please note: Queries are made part of the Legal Health Record. If you have any questions, please contact the author of this message via ITS. Dr. Camacho Velazco Heart Failure is documented in the Cardiology consult 02/03 History/Risk Factors: 34-year-old white female presents to the ED for there episodes of hematemesis. Medical History Atrial Fibrillation, Heart Failure, the patient had transposition of great arteries as an . Clinical Indicators: VS/Pulse OX: 122/88 119 97.9 18 100% 02/23/19 Echocardiogram Results: There is moderate concentric left ventricular hypertrophy. Overall left ventricular systolic function is normal with, an EF 55-60%. There is paradoxical/dysynergic septal motion consistent with right ventricular volume overload and /or elevated right ventricular end diastolic pressure. Chest X Ray: Worsening right perihilar infiltrate. Treatment: 02/02 Lasix 80mg po daily, Aldactone 25mg po daily, Lopressor 100mg po bid, Chronic Diastolic Heart Failure: Unable to Determine Other, please specify i have not documented chf on this patient- this is a wasteful query (Last Revision: December 2017) MTDD
--- NOTE | 2020-02-05 17:24 | PN ---
PROGRESS NOTE DATE OF SERVICE: 02/04/2020. CHIEF COMPLAINT: Alcoholic pancreatitis and alcoholism. HISTORY OF PRESENT ILLNESS: This lady is still not feeling well. She is still complaining of epigastric and back pain. She has had no vomiting. She has had no fever, chills. PHYSICAL EXAMINATION: She is jaundiced. Chest is clear. Cardiac exam is normal. The abdomen is slightly tender over the epigastrium. IMPRESSION: 1. Alcoholic pancreatitis. 2. Congenital heart disease. 3. Jaundice. PLAN: 1. Order laboratory studies. 2. Advance diet to as tolerated. MMODL / IJN: [id number] /
--- NOTE | 2020-02-05 17:33 | PN ---
PROGRESS NOTE DATE OF SERVICE: 02/05/2020 CHIEF COMPLAINT: Acute alcohol intoxication, alcoholic pancreatitis, jaundice, and back pain. HISTORY OF PRESENT ILLNESS: This lady is complaining of back pain. This sounds as though it could be related to her pancreatitis. She has had no fever, no chills, nausea, vomiting, etc. Physical exam she remains jaundiced and her bilirubin is elevated. This will be repeated. PHYSICAL EXAMINATION: Chest is clear. The cardiac exam is unchanged. The abdomen seems soft and not particularly tender. There is no other abnormality. IMPRESSION: 1. Alcoholism. 2. Acute alcohol intoxication. 3. Congenital heart disease. 4. Alcoholic pancreatitis. 5. Back pain. 6. Jaundice. PLAN: 1. Ultrasound of the liver and pancreas. 2. Continue to follow blood work. MMODL / IJN: [id number] /
[2020-02-06] MEDS: LORazepam 2 MG/ML INJ IV PRN ×3 (02:56→19:55)
[2020-02-06] MEDS: SODIUM CHLORIDE 0.9% 1,000 ML IV SCH ×4 (03:56→20:04)
[2020-02-06] MEDS: diphenhydrAMINE 50 MG/ML 1 ML VIAL IVP PRN ×2 (04:38→14:36)
[2020-02-06] MEDS: PANTOPRAZOLE 40 MG TABLET PO SCH ×2 (06:22→16:06)
[2020-02-06] MEDS: THIAMINE 100 MG TAB PO SCH ×2 (06:22→16:06)
--- NOTE | 2020-02-06 07:32 | ECHOF ---
Referral Reason:elevated bilirubin, pancreatitis, back pain MEASUREMENTS -------- HEIGHT: 160.0 cm WEIGHT: 60.8 kg BP: 102/58 RVIDd: 4.1 cm (< 3.3) IVSd: 1.3 cm (0.6 - 1.1) LVIDd: 4.6 cm (3.9 - 5.3) LVPWd: 1.5 cm (0.6 - 1.1) IVSs: 1.5 cm LVIDs: 3.4 cm LVPWs: 1.8 cm Ao Diam: 3.0 cm (2.0 - 3.7) AV Cusp: 1.5 cm (1.5 - 2.6) LA Diam: 2.3 cm (2.7 - 3.8) MV EXCURSION: 14.577 mm (> 18.000) MV EF SLOPE: 31 mm/s (70 - 150) EPSS: 1.1 cm MV E Raheel: 0.88 m/s MV DecT: 175 ms MV A Raheel: 1.06 m/s MV E/A Ratio: 0.83 AR PHT: 428 ms RAP: 5.00 mmHg RVSP: 60.21 mmHg FINDINGS -------- Sinus rhythm. This was a technically adequate study. The left ventricular size is normal. There is moderate concentric left ventricular hypertrophy. O verall left ventricular systolic function is mildly impaired with, an EF between 45 - 50 %. The right ventricle is severely enlarged. The left atrial size is normal. The right atrial size is normal. Interatrial and interventricular septum intact. The aortic valve was not well visualized. There is moderate aortic regurgitation. Mild mitral regurgitation is present. Moderate to severe tricuspid regurgitation present. There is severe pulmonary hypertension. The r ight ventricular systolic pressure, as measured by Doppler, is 60.21mmHg. Trace/mild (physiologic) pulmonic regurgitation. HX OF TRANPOSITION OF VESSELS SURGERY. There is no pericardial effusion. CONCLUSIONS -------- 1. Sinus rhythm. 2. This was a technically adequate study. 3. The left ventricular size is normal. 4. There is moderate concentric left ventricular hypertrophy. 5. Overall left ventricular systolic function is mildly impaired with, an EF between 45 - 50 %. 6. The right ventricle is severely enlarged. 7. The left atrial size is normal. 8. The right atrial size is normal. 9. Interatrial and interventricular septum intact. 10. The aortic valve was not well visualized. 11. There is moderate aortic regurgitation. 12. Mild mitral regurgitation is present. 13. Moderate to severe tricuspid regurgitation present. 14. There is severe pulmonary hypertension. 15. The right ventricular systolic pressure, as measured by Doppler, is 60.21mmHg. 16. Trace/mild (physiologic) pulmonic regurgitation. 17. HX OF TRANPOSITION OF VESSELS SURGERY. 18. There is no pericardial effusion. CARE TAKER: Sallie Chan RDCS
[2020-02-06] MEDS: LORATADINE 10 MG TAB PO SCH (08:18)
[2020-02-06] MEDS: DIGOXIN 125 MCG TAB PO SCH (08:18)
[2020-02-06] MEDS: SPIRONOLACTONE 25 MG TAB PO SCH (08:18)
[2020-02-06] MEDS: POTASSIUM CHLORIDE ER 20 MEQ TAB.ER PO SCH ×2 (08:18→19:55)
[2020-02-06] MEDS: METOPROLOL TARTRATE 50 MG TAB PO SCH ×2 (08:18→19:55)
[2020-02-06] MEDS: FUROSEMIDE 80 MG TAB PO SCH (08:18)
[2020-02-06] MEDS: HYDROmorphone 0.5 MG/0.5 ML SYRINGE IVP PRN ×3 (10:35→23:05)
--- NOTE | 2020-02-06 13:46 | US ---
EXAMINATION TYPE: US abdomen limited DATE OF EXAM: 02/06/2020 COMPARISON: CLINICAL HISTORY: abd. and back pain with pancreatitis, elev. LFTs.. Pain. EXAM MEASUREMENTS: Liver Length: 16.0 cm Gallbladder Wall: 0.4 cm CBD: 0.4 cm Right Kidney: 11.2 x 4.3 x 3.6 cm Pancreas: Heterogenous Liver: wnl Gallbladder: Thickened wall Evidence for sonographic García's sign: neg CBD: wnl Right Kidney: No hydronephrosis or masses seen IMPRESSION: 1. Pancreas is somewhat heterogeneous correlate with pancreatic enzymes to assess for pancreatitis. 2. Thickened gallbladder wall measuring 4 mm with no evidence of gallstones or pericholecystic fluid. This can occasionally be seen with acalculous cholecystitis. Correlate clinically.
--- NOTE | 2020-02-06 14:10 | PN ---
PROGRESS NOTE CHIEF COMPLAINT: Acute alcohol intoxication and pancreatitis. HISTORY OF PRESENT ILLNESS: This lady is still complaining of back pain which she describes as being lower in the sacral area. She has not had any fever, chills, dysuria, hematuria, etc. Hemoglobin is still around 8. She is not on any anticoagulants. Bilirubin is still elevated as well. PHYSICAL EXAMINATION: She appears to be less jaundiced today. Head, ears, eyes, nose, mouth, and throat are normal. Chest is clear. Cardiac exam is normal. Abdomen is soft and there is no visceromegaly. She is slightly tender over the epigastrium. IMPRESSION: 1. Alcoholic pancreatitis. 2. Alcoholism. 3. Congenital heart disease. 4. Back pain, etiology unknown. PLAN: 1. Continue to monitor laboratory studies. 2. Ultrasound of the liver and pancreas. MMODL / IJN: [id number] /
--- NOTE | 2020-02-06 14:19 | PN ---
PROGRESS NOTE Anita is a 34-year-old lady with history of congestive heart failure, status post surgery for transposition of great vessels, hypertension, alcohol abuse, and anemia, who was admitted to hospital with severe and symptomatic anemia. Currently, Coumadin is on hold. She is being worked up for GI bleed. On exam, afebrile. Heart rate is 78 beats, her blood pressure is 97/50, respiratory rate is 18. Chest exam reveals good air entry bilaterally. Heart exam reveals first and second heart sounds. No gallop. Has a systolic murmur at the left lower sternal border. Abdomen is soft. Extremities did not reveal any edema. Peripheral pulses are palpable. An echocardiogram on this admission revealed mild LV dysfunction with moderate aortic regurgitation and severe pulmonary hypertension. ASSESSMENT: 1. Congenital heart disease, status post surgery. 2. Anemia. 3. Paroxysmal atrial fibrillation. 4. Severe pulmonary hypertension. PLAN: Resume Coumadin whenever issues about anemia and possible blood loss have been addressed. MMODL / IJN: [id number] /
[2020-02-07] MEDS: LORazepam 2 MG/ML INJ IV PRN ×2 (04:29→16:54)
[2020-02-07] MEDS: SODIUM CHLORIDE 0.9% 1,000 ML IV SCH ×3 (06:06→23:42)
[2020-02-07] MEDS: PANTOPRAZOLE 40 MG TABLET PO SCH ×2 (06:24→16:54)
[2020-02-07] MEDS: THIAMINE 100 MG TAB PO SCH ×2 (06:24→16:54)
[2020-02-07] MEDS: HYDROmorphone 0.5 MG/0.5 ML SYRINGE IVP PRN ×3 (06:24→21:25)
[2020-02-07] MEDS: FUROSEMIDE 80 MG TAB PO SCH (08:43)
[2020-02-07] MEDS: SPIRONOLACTONE 25 MG TAB PO SCH (08:43)
[2020-02-07] MEDS: LORazepam 0.5 MG TAB PO PRN ×2 (08:43→23:56)
[2020-02-07] MEDS: METOPROLOL TARTRATE 50 MG TAB PO SCH ×2 (08:43→21:23)
[2020-02-07] MEDS: DIGOXIN 125 MCG TAB PO SCH (08:43)
[2020-02-07] MEDS: POTASSIUM CHLORIDE ER 20 MEQ TAB.ER PO SCH ×2 (08:43→21:24)
[2020-02-07] MEDS: LORATADINE 10 MG TAB PO SCH (08:43)
[2020-02-07] MEDS: diphenhydrAMINE 50 MG/ML 1 ML VIAL IVP PRN (11:26)
[2020-02-07 11:48] LABS: ALT 39 U/L (4-34); AST 156 U/L (14-36); African American GFR (CKD) >90 (>60 ml/min/1.73 sqM); Albumin 3.5 g/dL (3.5-5.0); Alkaline Phosphatase 133 U/L (38-126); Anion Gap 14 mmol/L; Blood Urea Nitrogen 13 mg/dL (7-17); Calcium 8.7 mg/dL (8.4-10.2); Carbon Dioxide 19 mmol/L (22-30); Chloride 100 mmol/L (98-107); Glucose 58 mg/dL (74-99); Non-African American GFR(CKD) >90 (>60 ml/min/1.73 sqM); Potassium 4.8 mmol/L (3.5-5.1); Sodium 133 mmol/L (137-145); Total Bilirubin 7.2 mg/dL (0.2-1.3); Total Protein 6.6 g/dL (6.3-8.2)
[2020-02-07 11:49] LABS: Anisocytosis Moderate; HCT 25.7 % (34.0-46.0); HGB 7.7 gm/dL (11.4-16.0); Hypochromasia Marked; MCH 24.2 pg (25.0-35.0); MCV 80.7 fL (80.0-100.0); Microcytosis Slight; Platelet Count 361 k/uL (150-450); Poikilocytosis Marked; RBC 3.19 m/uL (3.80-5.40); RDW 22.8 % (11.5-15.5); WBC 19.8 k/uL (3.8-10.6)
[2020-02-07 12:44] LABS: Band Neutrophils % 1 %; Lymphocytes # (M) 1.39 k/uL (1.0-4.8); Metamyelocytes % 1 %; Mixed Population RBC Present; Myelocytes # (M) 0.79 k/uL (0); Myelocytes % 4 %; Neutrophils % (M) 86 %; Nucleated Red Blood Cells 0 /100 WBC (0-0); Polychromasia Present; Total Cells Counted 200
--- NOTE | 2020-02-07 14:11 | P.GSCN ---
History of Present Illness Consult date: 02/07/20 Reason for Consult: Gallbladder disease, pancreatitis Requesting physician: Rodney Wilson History of present illness: CHIEF COMPLAINT: Gallbladder disease, pancreatitis HISTORY OF PRESENT ILLNESS: 34-year-old female who originally presented to the emergency room secondary to nausea and vomiting. Patient was diagnosed with pancreatitis. Serum alcohol on admission 300. General surgery was consulted for further evaluation. Patient examined at the bedside with Dr. Castillo. Patient denies a history of alcohol abuse and states she only has 1 or 2 glasses of wine on rare occasions. She reports pain was located in the epigastric region and right upper quadrant but states it is minimal at this time. Currently denies nausea or vomiting. Denies any further episodes of hematemesis. PAST MEDICAL HISTORY: See list. PAST SURGICAL HISTORY: See list. SOCIAL HISTORY: No illicit drug use. REVIEW OF SYSTEMS: CONSTITUTIONAL: Denies fever or chills. HEENT: Denies blurred vision, vision changes, or eye pain. CARDIOVASCULAR: Denies chest pain or pressure. RESPIRATORY: No shortness of breath. GASTROINTESTINAL: Refer to HPI for pertinent findings HEMATOLOGIC: Denies bleeding disorders. GENITOURINARY: Denies any blood in urine. SKIN: Denies pruitis. Denies rash. PHYSICAL EXAM: VITAL SIGNS: Reviewed. GENERAL: Well-developed in no acute distress. HEENT: Extraocular movements grossly intact. Moist buccal mucosa. Head is atraumatic, normocephalic. ABDOMEN: Soft. Nondistended. Nontender with palpation. NEUROLOGIC: Alert and oriented. Cranial nerves II through XII grossly intact. LABORATORY DATA: WBC 19.8. Hemoglobin 7.7. Platelet count 361. Bilirubin 7.2. AST 156. ALT 39. Lipase 995. IMAGING: Abdominal ultrasound: Pancreas is somewhat heterogeneous correlate with pancreatic enzymes to assess for pancreatitis. Thickened gallbladder wall measuring 4 mm with no evidence of gallstones or pericholecystic fluid. ASSESSMENT: 1. Abdominal pain 2. Acute pancreatitis 3. Chronic cholecystitis 4. Hyperbilirubinemia 5. Acute alcohol intoxication on admission 6. Hematemesis on admission PLAN: Monitor labs. Repeat CBC and CMP in AM Begin Zosyn. Monitor WBC Patient may benefit from GI consultation. Will defer to Dr. Wilson Recommend lap deepa when medically stable Nurse practitioner note has been reviewed by physician. Signing provider agrees with the documented findings, assessment, and plan of care. 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 Recent hospitalization for anemia. History of Any Multi-Drug Resistant Organisms: ESBL Year Discovered:: 02/25/17 ESBL-Klebsiella MDRO Source:: Urine Past Surgical History: No Surgical Hx Reported Additional Past Surgical History / Comment(s): open heart surg for transposition of great arteries, CARDIOVERTED FOR A- FIB twice Past Anesthesia/Blood Transfusion Reactions: No Reported Reaction Past Psychological History: Anxiety Additional Psychological History / Comment(s): Pt resides alone. She is employed. Smoking Status: Never smoker Past Alcohol Use History: None Reported Additional Past Alcohol Use History / Comment(s): Pt started smoking in 2002 and quit in 2016. Pt states she used to be a heavy drinker, states she currently has 2-3 glasses of wine daily Past Drug Use History: None Reported - Past Family History Mother Family Medical History: No Reported History Additional Family Medical History / Comment(s): Mother is healthy Father Family Medical History: No Reported History Additional Family Medical History / Comment(s): Father is healthy Medications and Allergies Home Medications Medication Instructions Recorded Confirmed Type Digoxin [Digitek] 125 mcg PO DAILY 12/19/17 02/03/20 History Spironolactone [Aldactone] 25 mg PO DAILY 12/19/17 02/03/20 History Furosemide [Lasix] 80 mg PO DAILY 03/19/19 02/03/20 History Potassium Chloride [Klor-Con 20] 40 meq PO BID 03/19/19 02/03/20 History LORazepam [Ativan] 0.5 mg PO TID PRN 03/31/19 02/03/20 History Loratadine [Claritin] 10 mg PO DAILY 11/04/19 02/03/20 History Pantoprazole [Protonix] 40 mg PO AC-BID #60 tablet. 11/10/19 02/03/20 Rx Metoprolol Tartrate [Lopressor] 100 mg PO DAILY 12/02/19 02/03/20 History Warfarin Sodium [Coumadin] 4 mg PO HS 02/03/20 02/03/20 History Allergies Allergy/AdvReac Type Severity Reaction Status Date / Time Iodinated Contrast Media AdvReac TWITCHING Verified 02/03/20 12:03 [Iodinated Contrast- Oral and IV Dye] Surgical - Exam Vital Signs Temp Pulse Resp BP Pulse Ox 97.9 F 119 H 18 122/88 100 02/02/20 21:04 02/02/20 21:04 02/02/20 21:04 02/02/20 21:04 02/02/20 21:04 Results - Labs 02/07/20 10:52 02/07/20 10:52 Abnormal Lab Results - Last 24 Hours (Table) 02/07/20 02/07/20 Range/Units 10:52 10:52 WBC 19.8 H (3.8-10.6) k/uL RBC 3.19 L (3.80-5.40) m/uL Hgb 7.7 L (11.4-16.0) gm/dL Hct 25.7 L (34.0-46.0) % MCH 24.2 L (25.0-35.0) pg MCHC 30.0 L (31.0-37.0) g/dL RDW 22.8 H (11.5-15.5) % Neutrophils # (Manual) 17.20 H (1.3-7.7) k/uL Metamyelocytes # (Man) 0.20 H (0) k/uL Myelocytes # (Manual) 0.79 H (0) k/uL Sodium 133 L (137-145) mmol/L Carbon Dioxide 19 L (22-30) mmol/L Glucose 58 L (74-99) mg/dL Total Bilirubin 7.2 H (0.2-1.3) mg/dL AST 156 H (14-36) U/L ALT 39 H (4-34) U/L Alkaline Phosphatase 133 H (38-126) U/L Diabetes panel 02/07/20 Range/Units 10:52 Sodium 133 L (137-145) mmol/L Potassium 4.8 (3.5-5.1) mmol/L Chloride 100 (98-107) mmol/L Carbon Dioxide 19 L (22-30) mmol/L BUN 13 (7-17) mg/dL Creatinine 0.86 (0.52-1.04) mg/dL Glucose 58 L (74-99) mg/dL Calcium 8.7 (8.4-10.2) mg/dL AST 156 H (14-36) U/L ALT 39 H (4-34) U/L Alkaline Phosphatase 133 H (38-126) U/L Total Protein 6.6 (6.3-8.2) g/dL Albumin 3.5 (3.5-5.0) g/dL Calcium panel 02/07/20 Range/Units 10:52 Calcium 8.7 (8.4-10.2) mg/dL Albumin 3.5 (3.5-5.0) g/dL Pituitary panel 02/07/20 Range/Units 10:52 Sodium 133 L (137-145) mmol/L Potassium 4.8 (3.5-5.1) mmol/L Chloride 100 (98-107) mmol/L Carbon Dioxide 19 L (22-30) mmol/L BUN 13 (7-17) mg/dL Creatinine 0.86 (0.52-1.04) mg/dL Glucose 58 L (74-99) mg/dL Calcium 8.7 (8.4-10.2) mg/dL Adrenal panel 02/07/20 Range/Units 10:52 Sodium 133 L (137-145) mmol/L Potassium 4.8 (3.5-5.1) mmol/L Chloride 100 (98-107) mmol/L Carbon Dioxide 19 L (22-30) mmol/L BUN 13 (7-17) mg/dL Creatinine 0.86 (0.52-1.04) mg/dL Glucose 58 L (74-99) mg/dL Calcium 8.7 (8.4-10.2) mg/dL Total Bilirubin 7.2 H (0.2-1.3) mg/dL AST 156 H (14-36) U/L ALT 39 H (4-34) U/L Alkaline Phosphatase 133 H (38-126) U/L Total Protein 6.6 (6.3-8.2) g/dL Albumin 3.5 (3.5-5.0) g/dL
--- NOTE | 2020-02-07 15:46 | PN ---
PROGRESS NOTE Anita is a 34-year-old lady with history of ETOH abuse, pancreatitis, congenital heart disease, status post surgery, on long-term anticoagulation. She has oral anticoagulants on hold secondary to anemia and possible GI bleed. Patient has history of paroxysmal atrial fibrillation and also has severe pulmonary hypertension. Patient tells me that she has been diagnosed with cholecystitis and she may need cholecystectomy. The patient is at increased risk for perioperative cardiac events, given her severe pulmonary hypertension that she has. She will resume her anticoagulant one the anemia issues have been addressed. PHYSICAL EXAM: Comfortable at rest. Vital signs are stable. There is no jugular venous distention. Chest exam reveals good air entry bilaterally. Heart exam reveals first and second heart sounds. Systolic murmur at the apex. Abdomen is soft. Exam of the extremities did not reveal any edema. Peripheral pulses are palpable. ASSESSMENT: 1. Anemia. 2. Paroxysmal atrial fibrillation. 3. Transposition of great vessels, status post surgery. 4. Cholecystitis. 5. Severe pulmonary hypertension. Please resume Coumadin once the issues of GI bleed have been addressed. Dr. Wilson will consult the appropriate physicians for evaluation of the possible GI bleed. MMODL / IJN: [id number] /
[2020-02-07] MEDS: PIPERACILLIN-TAZOBACTAM 3.375 GM in SODIUM CHLORIDE 0.9% 100 ML IVPB SCH ×2 (16:54→23:42)
--- NOTE | 2020-02-07 17:18 | PN ---
PROGRESS NOTE CHIEF COMPLAINT: Pancreatitis. HISTORY OF PRESENT ILLNESS: This lady's condition is becoming worse and more worrisome. She has back pain. Lipase is coming down, but only very slowly. Her liver function studies are starting to rise, including her alkaline phosphatase. CT suggests there may be underlying gallbladder disease. White count is also rising and her hemoglobin is dropping down toward 7. PHYSICAL EXAMINATION: She is afebrile. Chest is clear. Cardiac exam is unchanged. The abdomen is slightly tender over the epigastrium. IMPRESSION: 1. Pancreatitis. 2. Elevated liver function studies. 3. ? cholecystitis. 4. Leukocytosis. 5. Anemia. PLAN: 1. Blood cultures. 2. Lactic acid. 3. Consult with Gastroenterology. 4. Consult with Infectious Disease. 5. Continue to monitor her liver function studies. MMODL / IJN: [id number] /
[2020-02-07] MEDS: BARIUM SULFATE 450 ML ORAL.SUSP BOTTLE PO PRN ×2 (20:25→23:42)
--- NOTE | 2020-02-07 23:48 | P.CONS ---
History of Present Illness - Reason for Consult Consult date: 02/07/20 leukocytosis Requesting physician: Rodney Wilson - Chief Complaint vomiting and epigastric pain x few days - History of Present Illness Patient is a 34-year female presented to [facility] ER about 5 days ago after apparently the patient did have a 3 episode of bloody vomitus patient symptoms started that day and has been vomiting for about an hour the patient has been complaining of pain mostly in the epigastric to the mid abdominal area described the pain to be sharp almost 7-out of 10 and no radiation of pain denies high-grade fever did have some chills denies any diarrhea or constipation patient also have a history of alcohol abuse he drinks about 3 glasses of wine the day she presented to hospital with the symptom patient was evaluated by the ER physician on arrival arrival to the ER patient has been afebrile and no fever has been recorded with this admission she was noticed to have a high white count of 16.9 which was up to 20.8 on 510 did came down but is up to 19.8 today that has prompted this infectious disease consultation on day fifth of her admission to this hospital patient liver enzymes are slowly trending up and the bilirubin is up to 7.2 lipase of 1026 admission was 5812 patient was not on antibiotic and no culture was done surgery was consulted today who started Zosyn as of significant disease consulted for further management of antibiotic therapy. 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 Recent hospitalization for anemia. History of Any Multi-Drug Resistant Organisms: ESBL Year Discovered:: 02/25/17 ESBL-Klebsiella MDRO Source:: Urine Past Surgical History: No Surgical Hx Reported Additional Past Surgical History / Comment(s): open heart surg for transposition of great arteries, CARDIOVERTED FOR A- FIB twice Past Anesthesia/Blood Transfusion Reactions: No Reported Reaction Past Psychological History: Anxiety Additional Psychological History / Comment(s): Pt resides alone. She is employed. Smoking Status: Never smoker Past Alcohol Use History: None Reported Additional Past Alcohol Use History / Comment(s): Pt started smoking in 2002 and quit in 2017. Pt states she used to be a heavy drinker, states she currently has 2-3 glasses of wine daily Past Drug Use History: None Reported - Past Family History Mother Family Medical History: No Reported History Additional Family Medical History / Comment(s): Mother is healthy Father Family Medical History: No Reported History Additional Family Medical History / Comment(s): Father is healthy Medications and Allergies Home Medications Medication Instructions Recorded Confirmed Type Digoxin [Digitek] 125 mcg PO DAILY 12/19/17 02/03/20 History Spironolactone [Aldactone] 25 mg PO DAILY 12/19/17 02/03/20 History Furosemide [Lasix] 80 mg PO DAILY 03/19/19 02/03/20 History Potassium Chloride [Klor-Con 20] 40 meq PO BID 03/19/19 02/03/20 History LORazepam [Ativan] 0.5 mg PO TID PRN 03/31/19 02/03/20 History Loratadine [Claritin] 10 mg PO DAILY 11/04/19 02/03/20 History Pantoprazole [Protonix] 40 mg PO AC-BID #60 tablet. 11/10/19 02/03/20 Rx Metoprolol Tartrate [Lopressor] 100 mg PO DAILY 12/02/19 02/03/20 History Warfarin Sodium [Coumadin] 4 mg PO HS 02/03/20 02/03/20 History Allergies Allergy/AdvReac Type Severity Reaction Status Date / Time Iodinated Contrast Media AdvReac TWITCHING Verified 02/03/20 12:03 [Iodinated Contrast- Oral and IV Dye] Physical Exam Vitals: Vital Signs Temp Pulse Resp BP Pulse Ox 02/07/20 11:31 97.1 F L 76 16 104/54 93 L 02/07/20 08:00 97.6 F 75 16 102/60 96 02/07/20 04:00 98.1 F 81 16 103/59 94 L 02/07/20 00:00 97.8 F 77 16 108/55 94 L 02/06/20 20:00 98.1 F 80 16 104/55 97 Intake and Output 02/07/20 02/07/20 02/07/20 06:59 14:59 22:59 Intake Total 1600 222 Balance 1600 222 Intake: Intake, IV Titration 1000 Amount Sodium Chloride 0.9% 1, 1000 000 ml @ 100 mls/hr IV . Q10H [facility] Rx#:[id number] Oral 600 222 Other: Voiding Method Toilet # Voids 2 2 Weight 63.5 kg GENERAL DESCRIPTION: Middle-aged female lying in bed, no distress. No tachypnea or accessory muscle of respiration use. HEENT: scleral icterus. Oral mucous membrane is dry. NECK: Trachea central, no thyromegaly. LUNGS: Unlabored breathing. Clear to auscultation anteriorly. No wheeze or crackle. HEART: S1, S2, regular rate and rhythm. ABDOMEN: Soft, mild epigastric tenderness , guarding or rigidity EXTREMITIES: No edema of feet.SKIN: No rash, no masses palpable. NEUROLOGICAL: The patient is awake, alert, oriented x3, mood and affect normal. Results CBC & Chem 7: 02/07/20 10:52 02/07/20 10:52 Labs: Abnormal Lab Results - Last 24 Hours (Table) 02/07/20 02/07/20 Range/Units 10:52 10:52 WBC 19.8 H (3.8-10.6) k/uL RBC 3.19 L (3.80-5.40) m/uL Hgb 7.7 L (11.4-16.0) gm/dL Hct 25.7 L (34.0-46.0) % MCH 24.2 L (25.0-35.0) pg MCHC 30.0 L (31.0-37.0) g/dL RDW 22.8 H (11.5-15.5) % Neutrophils # (Manual) 17.20 H (1.3-7.7) k/uL Metamyelocytes # (Man) 0.20 H (0) k/uL Myelocytes # (Manual) 0.79 H (0) k/uL Sodium 133 L (137-145) mmol/L Carbon Dioxide 19 L (22-30) mmol/L Glucose 58 L (74-99) mg/dL Total Bilirubin 7.2 H (0.2-1.3) mg/dL AST 156 H (14-36) U/L ALT 39 H (4-34) U/L Alkaline Phosphatase 133 H (38-126) U/L Assessment and Plan Assessment: patient with leukocytosis which is likely multifactorial in this patient presented hospital with vomiting and hematemesis epigastric discomfort now with evidence of elevated liver enzymes high clinical suspicious for pancreatitis with concern for possible gall stone associated in view of significant hyperbilirubinemia patient does not look septic however underlying component of infection secondary to gram-negative pathogen not entirely excluded Plan: patient with leukocytosis which is likely multifactorial in this patient presented hospital with vomiting and hematemesis epigastric discomfort now with evidence of elevated liver enzymes high clinical suspicious for pancreatitis with concern for possible gall stone associated in view of significant hyperbilirubinemia patient does not look septic however underlying component of infection secondary to gram-negative pathogen not entirely excluded Time with Patient: Greater than 30
[2020-02-08] MEDS: diphenhydrAMINE 50 MG/ML 1 ML VIAL IVP PRN ×3 (00:57→22:51)
--- NOTE | 2020-02-08 01:17 | CT ---
EXAMINATION TYPE: CT abdomen pelvis wo con DATE OF EXAM: 02/08/2020 COMPARISON: 03/14/2019 HISTORY: abdominal pain CT DLP: 434 mGycm Automated exposure control for dose reduction was used. There is some mild infiltrate and atelectasis in the right lower lobe. Heart is enlarged. There is no pleural effusion. There is no pericardial effusion. Liver shows no focal defect. Spleen is intact. There is some mild fat stranding around the pancreas. Gallbladder has normal size. Liver shows no dilated ducts. Stomach appears intact. There is no adrenal mass. Kidneys have normal size and contour. There is no hydronephrosis. Ureters a re not dilated. There is no retroperitoneal adenopathy. Bladder distends smoothly. Uterus is antevert ed. There is no inguinal hernia. There is small amount of free fluid in the pelvis. There is no mesenteric edema. There is no ascites or free air. There is no sign of a bowel obstructio n. Appendix appears normal. Lumbar spine is intact. Bony pelvis appears intact. IMPRESSION: Mild fat stranding around the pancreas and pancreatic thickening suggestive of pancreatitis. This is a change compared to old exam. Small amount of free fluid in the pelvis. Is a change compared to old exam. Normal appendix. Mild sub cutaneous edema over the lower lumbar spine. Cardiomegaly. Minimal right lower lobe infiltrate and subsegmental atelectasis. Unchanged.
[2020-02-08] MEDS: HYDROmorphone 0.5 MG/0.5 ML SYRINGE IVP PRN ×3 (05:17→17:48)
[2020-02-08 06:49] LABS: Anisocytosis Moderate; Basophils # (A) 0.1 k/uL (0-0.2); Basophils % (A) 1 %; Eosinophils # (A) 0.5 k/uL (0-0.7); Eosinophils % (A) 3 %; HCT 24.9 % (34.0-46.0); HGB 7.5 gm/dL (11.4-16.0); Hypochromasia Marked; Lymphocytes # (A) 1.6 k/uL (1.0-4.8); Lymphocytes % (A) 9 %; MCHC 30.3 g/dL (31.0-37.0); MCV 79.3 fL (80.0-100.0); Microcytosis Moderate; Monocytes # (A) 0.8 k/uL (0-1.0); Monocytes % (A) 5 %; Neutrophils # (A) 13.9 k/uL (1.3-7.7); Neutrophils % (A) 81 %; Platelet Count 343 k/uL (150-450); Poikilocytosis Marked; RBC 3.14 m/uL (3.80-5.40); RDW 23.7 % (11.5-15.5); WBC 17.1 k/uL (3.8-10.6)
[2020-02-08 06:55] LABS: ALT 46 U/L (4-34); AST 119 U/L (14-36); African American GFR (CKD) >90 (>60 ml/min/1.73 sqM); Albumin 3.2 g/dL (3.5-5.0); Alkaline Phosphatase 126 U/L (38-126); Anion Gap 10 mmol/L; Blood Urea Nitrogen 9 mg/dL (7-17); Calcium 8.5 mg/dL (8.4-10.2); Carbon Dioxide 23 mmol/L (22-30); Chloride 100 mmol/L (98-107); Glucose 100 mg/dL (74-99); Non-African American GFR(CKD) >90 (>60 ml/min/1.73 sqM); Potassium 3.6 mmol/L (3.5-5.1); Sodium 133 mmol/L (137-145); Total Bilirubin 5.1 mg/dL (0.2-1.3); Total Protein 6.2 g/dL (6.3-8.2)
[2020-02-08] MEDS: THIAMINE 100 MG TAB PO SCH ×2 (07:08→17:44)
[2020-02-08] MEDS: PANTOPRAZOLE 40 MG TABLET PO SCH ×2 (07:08→17:44)
[2020-02-08 07:46] LABS: C Reactive Protein 44.7 mg/L (<10.0)
[2020-02-08] MEDS: POTASSIUM CHLORIDE ER 20 MEQ TAB.ER PO SCH ×2 (08:50→20:59)
[2020-02-08] MEDS: FUROSEMIDE 80 MG TAB PO SCH (08:50)
[2020-02-08] MEDS: METOPROLOL TARTRATE 50 MG TAB PO SCH ×2 (08:51→20:59)
[2020-02-08] MEDS: LORATADINE 10 MG TAB PO SCH (08:51)
[2020-02-08] MEDS: DIGOXIN 125 MCG TAB PO SCH (08:51)
[2020-02-08] MEDS: PIPERACILLIN-TAZOBACTAM 3.375 GM in SODIUM CHLORIDE 0.9% 100 ML IVPB SCH ×3 (08:51→23:33)
[2020-02-08] MEDS: SPIRONOLACTONE 25 MG TAB PO SCH (08:51)
[2020-02-08] MEDS: SODIUM CHLORIDE 0.9% 1,000 ML IV SCH ×2 (08:51→20:59)
[2020-02-08] MEDS: LORazepam 0.5 MG TAB PO PRN ×2 (08:51→16:55)
[2020-02-08 12:19] LABS: INR 1.5 (<1.2); Prothrombin Time 14.6 sec (9.0-12.0)
--- NOTE | 2020-02-08 14:14 | P.PN ---
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 She f [place] with cardiology at [facility]. Presented to the hospital with symptoms of vomiting bright red blood for 3 days. She had associated epigastric and abdominal discomfort. Laboratory data from today was reviewed, white blood cell count 15.6, hemoglobin 8.1, platelet count 385. Sodium 136, potassium 4.0, BUN 7, creatinine 0.6. Her lipase today is up to 1026. Patient continues to be in atrial fibrillation this morning, her heart rate is under adequate control. She didn't sleep well last night according to her, she feels okay today other than tired. 02/08/2020 Patient seen and examined this morning, hemodynamically stable, blood pressure 105/50 with a heart rate in the 70s, 93% on room air. White blood cell count 17.1, hemoglobin 7.5 today, platelet count 343. Sodium 133, potassium 3.6, BUN 9, creatinine 0.6. Total bilirubin 5.1 AST 119 ALT 46 alk phos 126. There is a GI consultation request in today for Objective - Vital Signs Vital signs: Vital Signs Temp 97.4 F L 02/08/20 08:00 Pulse 72 02/08/20 12:00 Resp 14 02/08/20 04:00 BP 105/55 02/08/20 12:00 Pulse Ox 91 L 02/08/20 08:00 Intake & Output 02/07/20 02/08/20 02/08/20 18:59 06:59 18:59 Intake Total 222 100 Balance 222 100 Weight 64.5 kg 64.5 kg Intake: Intake, IV Titration 100 Amount Piperacillin-Tazobactam 3 100 .375 gm In Sodium Chloride 0.9% 100 ml @ 25 mls/hr IVPB Q8HR [facility] Rx# :[id number] Oral 222 Other: Voiding Method Toilet Toilet # Voids 2 - Exam PHYSICAL EXAMINATION Blood pressure 102/60 heart rate 70 afebrile and maintaining oxygen saturation on room air. CONSTITUTIONAL: No apparent distress. Generalized pallor. HEENT: Head is normocephalic. Pupils are equal, round. Sclerae anicteric. Mucous membranes of the mouth are moist. No JVD. No carotid bruit. CHEST EXAMINATION: Coarse sounding. No rales or wheezes. No chest wall tenderness is noted on palpation or with deep breathing. HEART EXAMINATION: Irregular rate and rhythm. S1, S2 heard. Systolic ejection murmur at the left sternal border, no gallops or rub. ABDOMEN: Soft, nontender. Positive bowel sounds. EXTREMITIES: 2+ peripheral pulses, no lower extremity edema and no calf tenderness. NEUROLOGIC EXAMINATION: Patient is awake, alert and oriented x3. - Labs CBC & Chem 7: 02/08/20 06:25 02/08/20 06:25 Labs: Abnormal Lab Results - Last 24 Hours (Table) 02/08/20 02/08/20 02/08/20 Range/Units 06:25 06:25 11:43 WBC 17.1 H (3.8-10.6) k/uL RBC 3.14 L (3.80-5.40) m/uL Hgb 7.5 L (11.4-16.0) gm/dL Hct 24.9 L (34.0-46.0) % MCV 79.3 L (80.0-100.0) fL MCH 24.0 L (25.0-35.0) pg MCHC 30.3 L (31.0-37.0) g/dL RDW 23.7 H (11.5-15.5) % Neutrophils # 13.9 H (1.3-7.7) k/uL PT 14.6 H (9.0-12.0) sec INR 1.5 H (<1.2) Sodium 133 L (137-145) mmol/L Glucose 100 H (74-99) mg/dL Total Bilirubin 5.1 H (0.2-1.3) mg/dL AST 119 H (14-36) U/L ALT 46 H (4-34) U/L C-Reactive Protein 44.7 H (<10.0) mg/L Total Protein 6.2 L (6.3-8.2) g/dL Albumin 3.2 L (3.5-5.0) g/dL Lipase 974 H (23-300) U/L Assessment and Plan Plan: ASSESSMENT and plan #1Acute GI bleeding requiring blood transfusion #2Paroxysmal atrial fibrillation on long-term anticoagulation #3Pancreatitis #4Anemia #5Hypertension #6Congenital heart disease status post surgery at 3 months of age Plan We'll continue to hold the patient's Coumadin, await GI recommendation. We will continue to follow this patient along with you now on an as-needed basis only, patient will need to be resumed on her Coumadin as soon as she is cleared from GI perspective. DNP note has been reviewed, I agree with a documented findings and plan of care. Patient was seen and examined.
--- NOTE | 2020-02-08 14:47 | P.PN ---
Subjective Progress Note Date: 02/08/20 CHIEF COMPLAINT: Gallbladder disease, pancreatitis HISTORY OF PRESENT ILLNESS: Patient examined at the bedside. She reports improvement in abdominal pain. Denies nausea or vomiting. Tolerating diet. WBC 17.1. Bilirubin 5.1. Lipase 974. PHYSICAL EXAM: VITAL SIGNS: Reviewed. GENERAL: Well-developed in no acute distress. HEENT: Extraocular movements grossly intact. Moist buccal mucosa. Head is atraumatic, normocephalic. ABDOMEN: Soft. Nondistended. Nontender with palpation. NEUROLOGIC: Alert and oriented. Cranial nerves II through XII grossly intact. ASSESSMENT: 1. Abdominal pain 2. Acute pancreatitis 3. Chronic cholecystitis 4. Hyperbilirubinemia 5. Acute alcohol intoxication on admission 6. Hematemesis on admission PLAN: Monitor labs. Repeat CBC and CMP in AM Continue Zosyn. Monitor WBC Recommend lap deepa when medically stable. Likely to be performed outpatient. Nurse practitioner note has been reviewed by physician. Signing provider agrees with the documented findings, assessment, and plan of care. Objective - Vital Signs Vital signs: Vital Signs Temp 97.4 F L 02/08/20 08:00 Pulse 72 02/08/20 12:00 Resp 14 02/08/20 04:00 BP 105/55 02/08/20 12:00 Pulse Ox 91 L 02/08/20 08:00 Intake & Output 02/07/20 02/08/20 02/08/20 18:59 06:59 18:59 Intake Total 222 100 Balance 222 100 Weight 64.5 kg 64.5 kg Intake: Intake, IV Titration 100 Amount Piperacillin-Tazobactam 3 100 .375 gm In Sodium Chloride 0.9% 100 ml @ 25 mls/hr IVPB Q8HR [facility] Rx# :[id number] Oral 222 Other: Voiding Method Toilet Toilet # Voids 2 - Labs CBC & Chem 7: 02/08/20 06:25 02/08/20 06:25 Labs: Abnormal Lab Results - Last 24 Hours (Table) 02/08/20 02/08/20 02/08/20 Range/Units 06:25 06:25 11:43 WBC 17.1 H (3.8-10.6) k/uL RBC 3.14 L (3.80-5.40) m/uL Hgb 7.5 L (11.4-16.0) gm/dL Hct 24.9 L (34.0-46.0) % MCV 79.3 L (80.0-100.0) fL MCH 24.0 L (25.0-35.0) pg MCHC 30.3 L (31.0-37.0) g/dL RDW 23.7 H (11.5-15.5) % Neutrophils # 13.9 H (1.3-7.7) k/uL PT 14.6 H (9.0-12.0) sec INR 1.5 H (<1.2) Sodium 133 L (137-145) mmol/L Glucose 100 H (74-99) mg/dL Total Bilirubin 5.1 H (0.2-1.3) mg/dL AST 119 H (14-36) U/L ALT 46 H (4-34) U/L C-Reactive Protein 44.7 H (<10.0) mg/L Total Protein 6.2 L (6.3-8.2) g/dL Albumin 3.2 L (3.5-5.0) g/dL Lipase 974 H (23-300) U/L
--- NOTE | 2020-02-08 18:40 | PN ---
PROGRESS NOTE CHIEF COMPLAINT: Pancreatitis. HISTORY OF PRESENT ILLNESS: This lady is complaining of more (low back) pain. Lipase has improved and liver function studies are down slightly. Hemoglobin has been stable. PHYSICAL EXAMINATION: She is still jaundiced. Chest is clear. Cardiac exam is unchanged. The abdomen is slightly protuberant. She has still some upper abdominal tenderness. IMPRESSION: 1. Acute alcoholic pancreatitis. 2. ? gallbladder disease. 3. Elevated liver enzymes, probably due to alcoholic hepatitis. 4. Anemia. 5. Congenital heart disease. PLAN: Continue to monitor, and order a PT and INR and serum ammonia today. She is being further evaluated by Infectious Disease, Gastroenterology and Surgery. MMODL / IJN: [id number] /
--- NOTE | 2020-02-08 21:41 | P.CONS ---
History of Present Illness - Reason for Consult Consult date: 02/08/20 Elevated liver enzymes Requesting physician: Rodney Wilson - Chief Complaint Hematemesis, abdominal pain - History of Present Illness 34-year-old female with multiple medical comorbidities including paroxysmal atrial fibrillation on anticoagulation therapy, hypertension, regular alcohol use, anemia with prior endoscopic evaluation on last hospitalization, congenital heart disease status post surgical repair at the age 3 months and following at [facility] who came to the hospital due to complaints of hematemesis and abdominal pain. The patient reports noting blood in vomitus prior to presentation. No further episodes since that time. She reports she was concerned due to her recent diagnosis of anemia. The patient was found to be intoxicated with alcohol on presentation with a serum alcohol level of 300. Hemoglobin has remained stable since presentation. She did have evaluation with EGD and colonoscopy on 11/06/2019 with findings of mild gastritis and internal hemorrhoids. Ultrasound on current presentation showed a thickened gallbladder with no cholelithiasis. Computed tomography scan also showed thickened gallbladder with evidence of pancreatitis. Lipase is been greater than 900 and patient has been treated for acute pancreatitis. She did have an acute elevation in her liver enzymes which have improved currently with total bilirubin 5.1, alkaline phosphatase 126, AST 119 and ALT 46. Review of Systems REVIEW OF SYSTEMS: CONSTITUTIONAL: Denies any fevers, chills, weight change or fatigue. CARDIOVASCULAR: Denies any chest pain, palpitations high or low blood pressures, history of atrial fibrillation as well as prior cardiac surgery. RESPIRATORY: Denies any shortness of breath, hemoptysis or cough. GENITOURINARY: No dysuria or hematuria. MUSCULOSKELETAL: No weakness reported. SKIN: Denies any new rashes or lesions, jaundice or pallor. PSYCHIATRIC: Denies any depression or anxiety, alcohol use disorder. NEUROLOGY: Denies headache, denies any new focal deficits. EARS/NOSE/THROAT: No recent hearing change, congestion, nasal discharge or sore throat. EYES: No pain in eyes, discharge or change in vision. GASTROINTESTINAL: As per HPI. 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 Recent hospitalization for anemia. History of Any Multi-Drug Resistant Organisms: ESBL Year Discovered:: 02/25/17 ESBL-Klebsiella MDRO Source:: Urine Past Surgical History: No Surgical Hx Reported Additional Past Surgical History / Comment(s): open heart surg for transposition of great arteries, CARDIOVERTED FOR A- FIB twice Past Anesthesia/Blood Transfusion Reactions: No Reported Reaction Past Psychological History: Anxiety Additional Psychological History / Comment(s): Pt resides alone. She is employed. Smoking Status: Never smoker Past Alcohol Use History: None Reported Additional Past Alcohol Use History / Comment(s): Pt started smoking in 2002 and quit in 2016. Pt states she used to be a heavy drinker, states she currently has 2-3 glasses of wine daily Past Drug Use History: None Reported - Past Family History Mother Family Medical History: No Reported History Additional Family Medical History / Comment(s): Mother is healthy Father Family Medical History: No Reported History Additional Family Medical History / Comment(s): Father is healthy Medications and Allergies Home Medications Medication Instructions Recorded Confirmed Type Digoxin [Digitek] 125 mcg PO DAILY 12/19/17 02/03/20 History Spironolactone [Aldactone] 25 mg PO DAILY 12/19/17 02/03/20 History Furosemide [Lasix] 80 mg PO DAILY 03/19/19 02/03/20 History Potassium Chloride [Klor-Con 20] 40 meq PO BID 03/19/19 02/03/20 History LORazepam [Ativan] 0.5 mg PO TID PRN 03/31/19 02/03/20 History Loratadine [Claritin] 10 mg PO DAILY 11/04/19 02/03/20 History Pantoprazole [Protonix] 40 mg PO AC-BID #60 tablet. 11/10/19 02/03/20 Rx Metoprolol Tartrate [Lopressor] 100 mg PO DAILY 12/02/19 02/03/20 History Warfarin Sodium [Coumadin] 4 mg PO HS 02/03/20 02/03/20 History Allergies Allergy/AdvReac Type Severity Reaction Status Date / Time Iodinated Contrast Media AdvReac TWITCHING Verified 02/03/20 12:03 [Iodinated Contrast- Oral and IV Dye] Physical Exam Vitals: Vital Signs Temp Pulse Resp BP Pulse Ox 02/08/20 05:17 100/62 02/08/20 04:00 97.7 F 72 14 87/48 93 L 02/08/20 00:00 97.5 F L 79 15 105/67 93 L 02/07/20 20:00 97.3 F L 78 15 98/61 93 L 02/07/20 16:00 97.4 F L 75 16 102/53 93 L 02/07/20 11:31 97.1 F L 76 16 104/54 93 L Intake and Output 02/07/20 02/08/20 02/08/20 22:59 06:59 14:59 Other: Voiding Method Toilet Toilet Weight 64.5 kg On physical examination, patient appears comfortable in no apparent distress. HEAD: Normocephalic, atraumatic. EYES: No scleral icterus. No conjunctival injection. MOUTH: No lesions, tongue midline. NECK: Trachea midline, no gross abnormalities. CHEST: Clear to auscultation with no wheezing or rhonchi appreciated. HEART: Regular rate and rhythm. ABDOMEN: Soft, mildly tender to palpation. Bowel sounds are positive. No organomegaly. No guarding or rigidity. EXTREMITIES: No pedal edema. SKIN: No rashes, no jaundice. NEUROLOGIC: Alert and oriented x3. No focal deficits. Results CBC & Chem 7: 02/08/20 06:25 02/08/20 06:25 Labs: Abnormal Lab Results - Last 24 Hours (Table) 02/07/20 02/07/20 02/08/20 Range/Units 10:52 10:52 06:25 WBC 19.8 H 17.1 H (3.8-10.6) k/uL RBC 3.19 L 3.14 L (3.80-5.40) m/uL Hgb 7.7 L 7.5 L (11.4-16.0) gm/dL Hct 25.7 L 24.9 L (34.0-46.0) % MCV 79.3 L (80.0-100.0) fL MCH 24.2 L 24.0 L (25.0-35.0) pg MCHC 30.0 L 30.3 L (31.0-37.0) g/dL RDW 22.8 H 23.7 H (11.5-15.5) % Neutrophils # 13.9 H (1.3-7.7) k/uL Neutrophils # (Manual) 17.20 H (1.3-7.7) k/uL Metamyelocytes # (Man) 0.20 H (0) k/uL Myelocytes # (Manual) 0.79 H (0) k/uL Sodium 133 L (137-145) mmol/L Carbon Dioxide 19 L (22-30) mmol/L Glucose 58 L (74-99) mg/dL Total Bilirubin 7.2 H (0.2-1.3) mg/dL AST 156 H (14-36) U/L ALT 39 H (4-34) U/L Alkaline Phosphatase 133 H (38-126) U/L C-Reactive Protein (<10.0) mg/L Total Protein (6.3-8.2) g/dL Albumin (3.5-5.0) g/dL Lipase (23-300) U/L 02/08/20 Range/Units 06:25 WBC (3.8-10.6) k/uL RBC (3.80-5.40) m/uL Hgb (11.4-16.0) gm/dL Hct (34.0-46.0) % MCV (80.0-100.0) fL MCH (25.0-35.0) pg MCHC (31.0-37.0) g/dL RDW (11.5-15.5) % Neutrophils # (1.3-7.7) k/uL Neutrophils # (Manual) (1.3-7.7) k/uL Metamyelocytes # (Man) (0) k/uL Myelocytes # (Manual) (0) k/uL Sodium 133 L (137-145) mmol/L Carbon Dioxide (22-30) mmol/L Glucose 100 H (74-99) mg/dL Total Bilirubin 5.1 H (0.2-1.3) mg/dL AST 119 H (14-36) U/L ALT 46 H (4-34) U/L Alkaline Phosphatase (38-126) U/L C-Reactive Protein 44.7 H (<10.0) mg/L Total Protein 6.2 L (6.3-8.2) g/dL Albumin 3.2 L (3.5-5.0) g/dL Lipase 974 H (23-300) U/L CT scan - abdomen: report reviewed (Computed tomography scan with findings of inflammation of the pancreas.) Assessment and Plan (1) Hematemesis Narrative/Plan: 34-year-old female with multiple medical comorbidities presents to the hospital with symptoms of abdominal pain and hematemesis. Currently being treated for acute pancreatitis with lipase greater than 900 and findings of inflammation of the pancreas on computed tomography scan of the abdomen. Ultrasound with findings of gallbladder wall thickening suspicious for acute acalculous cholecystitis with no evidence of stones or biliary dilation on ultrasound or CT imaging. He not rule out a component of alcoholic hepatitis given typical elevation of AST: ALT. No further episodes of hematemesis. Patient had EGD and colonoscopy in October 2019 for evaluation of anemia with findings of mild gastritis and internal hemorrhoids. Current Visit: Yes Status: Acute Code(s): K92.0 - HEMATEMESIS SNOMED Code(s): 8655190 (2) Alcohol intoxication Current Visit: Yes Status: Acute Code(s): F10.929 - ALCOHOL USE, UNSPECIFIED WITH INTOXICATION, UNSPECIFIED SNOMED Code(s): 53747176 (3) Acute pancreatitis Current Visit: No Status: Acute Code(s): K85.90 - ACUTE PANCREATITIS WITHOUT NECROSIS OR INFECTION, UNSP SNOMED Code(s): 152049114 (4) Hepatitis Current Visit: No Status: Acute Code(s): K75.9 - INFLAMMATORY LIVER DISEASE, UNSPECIFIED SNOMED Code(s): 701519139 (5) Microcytic hypochromic anemia Current Visit: No Status: Acute Priority: High Code(s): D50.9 - IRON D EFICIENCY ANEMIA, UNSPECIFIED SNOMED Code(s): 28522840 Plan: Supportive care Okay for diet as tolerated Continue IV fluid hydration Continue pain control Surgical service following the patient Continue to monitor CBC, BMP, LFTs Extensive discussion with the patient regarding alcohol abstinence No plans for endoscopic evaluation at this time given EGD and colonoscopy in October 2019 Acute viral hepatitis panel ordered If liver enzymes remain elevated may consider MRCP for further evaluation, however no cholelithiasis noted on either ultrasound or computed tomography scan of the abdomen and suspicion is that liver enzymes are elevated in the setting of alcoholic hepatitis Thank you for allowing us to participate in the care of the patient we will continue to follow
--- NOTE | 2020-02-08 22:46 | PN ---
PROGRESS NOTE DATE OF SERVICE: 02/08/2020 REASON FOR FOLLOWUP: Leukocytosis. INTERVAL HISTORY: The patient is currently afebrile. The patient is breathing comfortably. Epigastric discomfort is slightly improved. No further vomiting. No chest pain, shortness of breath or cough or diarrhea. PHYSICAL EXAMINATION: Blood pressure 117/64, pulse of 70, temperature 97.4. She is 97% on room air. General description is a middle-aged female lying in bed in no distress. RESPIRATORY SYSTEM: Unlabored breathing. Clear to auscultation anteriorly. HEART: S1, S2. Regular rate and rhythm. ABDOMEN: Soft. No tenderness. EXTREMITIES: No edema of the feet. LABS: Hemoglobin 7.5, white count 17.1, creatinine 0.69. Blood culture has been negative. DIAGNOSTIC IMPRESSION AND PLAN: Patient with leukocytosis. Source is likely acute pancreatitis. CT confirmed the findings. No evidence of any abscess or pseudocyst. Continue Zosyn while waiting for the culture to finalize. MMODL / IJN: [id number] /
[2020-02-09] MEDS: HYDROmorphone 0.5 MG/0.5 ML SYRINGE IVP PRN ×4 (01:08→22:23)
[2020-02-09] MEDS: SODIUM CHLORIDE 0.9% 1,000 ML IV SCH ×3 (05:08→23:31)
[2020-02-09] MEDS: LORazepam 0.5 MG TAB PO PRN ×3 (05:14→23:36)
[2020-02-09] MEDS: THIAMINE 100 MG TAB PO SCH ×2 (06:27→16:45)
[2020-02-09] MEDS: PANTOPRAZOLE 40 MG TABLET PO SCH ×2 (06:27→16:45)
[2020-02-09 07:37] LABS: Anisocytosis Marked; Basophils # (A) 0.1 k/uL (0-0.2); Basophils % (A) 1 %; Eosinophils # (A) 0.3 k/uL (0-0.7); Eosinophils % (A) 2 %; HCT 24.7 % (34.0-46.0); HGB 7.2 gm/dL (11.4-16.0); Hypochromasia Marked; Lymphocytes # (A) 1.5 k/uL (1.0-4.8); Lymphocytes % (A) 12 %; MCH 23.4 pg (25.0-35.0); MCHC 29.2 g/dL (31.0-37.0); Mean Platelet Volume 7.6; Microcytosis Moderate; Monocytes # (A) 0.7 k/uL (0-1.0); Monocytes % (A) 5 %; Neutrophils % (A) 77 %; Platelet Count 309 k/uL (150-450); Poikilocytosis Moderate; RBC 3.09 m/uL (3.80-5.40)
[2020-02-09 07:40] LABS: RDW 25.2 % (11.5-15.5)
[2020-02-09 08:01] LABS: ALT 41 U/L (4-34); AST 84 U/L (14-36); African American GFR (CKD) >90 (>60 ml/min/1.73 sqM); Albumin 3.3 g/dL (3.5-5.0); Alkaline Phosphatase 121 U/L (38-126); Anion Gap 12 mmol/L; Blood Urea Nitrogen 6 mg/dL (7-17); Calcium 8.2 mg/dL (8.4-10.2); Carbon Dioxide 22 mmol/L (22-30); Chloride 101 mmol/L (98-107); Glucose 76 mg/dL (74-99); Non-African American GFR(CKD) >90 (>60 ml/min/1.73 sqM); Potassium 3.4 mmol/L (3.5-5.1); Sodium 135 mmol/L (137-145); Total Bilirubin 4.6 mg/dL (0.2-1.3); Total Protein 6.1 g/dL (6.3-8.2)
[2020-02-09] MEDS: PIPERACILLIN-TAZOBACTAM 3.375 GM in SODIUM CHLORIDE 0.9% 100 ML IVPB SCH ×3 (09:00→23:31)
[2020-02-09] MEDS: FUROSEMIDE 80 MG TAB PO SCH (09:00)
[2020-02-09] MEDS: DIGOXIN 125 MCG TAB PO SCH (09:00)
[2020-02-09] MEDS: METOPROLOL TARTRATE 50 MG TAB PO SCH ×2 (09:00→20:10)
[2020-02-09] MEDS: diphenhydrAMINE 50 MG/ML 1 ML VIAL IVP PRN ×2 (09:00→20:11)
[2020-02-09] MEDS: SPIRONOLACTONE 25 MG TAB PO SCH (09:00)
[2020-02-09] MEDS: LORATADINE 10 MG TAB PO SCH (09:00)
[2020-02-09] MEDS: POTASSIUM CHLORIDE ER 20 MEQ TAB.ER PO SCH ×2 (09:01→20:11)
[2020-02-09 09:51] LABS: Mixed Population RBC Present; Polychromasia Present
[2020-02-09 13:53] LABS: Hepatitis A Antibody IgM Non-Reactive (Non-Reactive); Hepatitis B Core IgM Non-Reactive (Non-Reactive); Hepatitis B Surface Antigen Non-Reactive (Non-Reactive); Hepatitis C IgG Antibody Non-Reactive (Non-Reactive)
--- NOTE | 2020-02-09 13:53 | P.PN ---
Subjective Progress Note Date: 02/09/20 CHIEF COMPLAINT: Gallbladder disease, pancreatitis HISTORY OF PRESENT ILLNESS: Patient examined at the bedside. She reports improvement in abdominal pain. Denies nausea or vomiting. Tolerating diet. white count 13.0. Hemoglobin 7.2. Lipase 993. PHYSICAL EXAM: VITAL SIGNS: Reviewed. GENERAL: Well-developed in no acute distress. HEENT: Extraocular movements grossly intact. Moist buccal mucosa. Head is atraumatic, normocephalic. ABDOMEN: Soft. Nondistended. Nontender with palpation. NEUROLOGIC: Alert and oriented. Cranial nerves II through XII grossly intact. ASSESSMENT: 1. Abdominal pain 2. Acute pancreatitis 3. Chronic cholecystitis 4. Hyperbilirubinemia 5. Acute alcohol intoxication on admission 6. Hematemesis on admission PLAN: GI on consult. Appreciate input and recommendations. Monitor labs. Repeat CBC and CMP in AM Continue Zosyn. Monitor WBC Recommend lap deepa when medically stable. Likely to be performed outpatient. We will sign off. Please reconsult if needed. Nurse practitioner note has been reviewed by physician. Signing provider agrees with the documented findings, assessment, and plan of care. Objective - Vital Signs Vital signs: Vital Signs Temp 98.4 F 02/09/20 03:28 Pulse 72 02/09/20 03:28 Resp 14 02/09/20 03:28 BP 101/50 02/09/20 03:28 Pulse Ox 92 L 02/09/20 03:28 Intake & Output 02/08/20 02/09/20 02/09/20 18:59 06:59 18:59 Intake Total 100 Balance 100 Weight 64.5 kg 64.3 kg Intake: Intake, IV Titration 100 Amount Piperacillin-Tazobactam 3 100 .375 gm In Sodium Chloride 0.9% 100 ml @ 25 mls/hr IVPB Q8HR [facility] Rx# :[id number] Other: Voiding Method Toilet # Voids 2 2 - Labs CBC & Chem 7: 02/09/20 07:10 02/09/20 07:10 Labs: Abnormal Lab Results - Last 24 Hours (Table) 02/08/20 02/09/20 02/09/20 Range/Units 11:43 07:10 07:10 WBC 13.0 H (3.8-10.6) k/uL RBC 3.09 L (3.80-5.40) m/uL Hgb 7.2 L (11.4-16.0) gm/dL Hct 24.7 L (34.0-46.0) % MCH 23.4 L (25.0-35.0) pg MCHC 29.2 L (31.0-37.0) g/dL RDW 25.2 H (11.5-15.5) % PT 14.6 H (9.0-12.0) sec INR 1.5 H (<1.2) Sodium 135 L (137-145) mmol/L Potassium 3.4 L (3.5-5.1) mmol/L BUN 6 L (7-17) mg/dL Calcium 8.2 L (8.4-10.2) mg/dL Total Bilirubin 4.6 H (0.2-1.3) mg/dL AST 84 H (14-36) U/L ALT 41 H (4-34) U/L Total Protein 6.1 L (6.3-8.2) g/dL Albumin 3.3 L (3.5-5.0) g/dL Lipase 993 H (23-300) U/L Microbiology - Last 24 Hours (Table) 02/07/20 15:55 Blood Culture - Preliminary Blood No Growth after 24 hours
[2020-02-09 15:53] LABS: Ferritin 23.1 ng/mL (10.0-291.0)
--- NOTE | 2020-02-09 16:11 | PN ---
PROGRESS NOTE DATE OF SERVICE: 02/09/2020 CHIEF COMPLAINT: Pancreatitis, alcoholism and alcoholic hepatitis. HISTORY OF PRESENT ILLNESS: This lady is not feeling a great deal better, but her numbers are slightly improved. Lipase is coming down slowly, as are her liver function studies. Her ammonia level is not elevated. Hemoglobin has not showed a significant response. PHYSICAL EXAMINATION: She remains jaundiced. She might be a little bit more alert today than yesterday. Chest is clear. Cardiac exam is unchanged. The abdomen is slightly protuberant. 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 IMPRESSION: 1. Pancreatitis. 2. Alcoholic hepatitis. 3. Anemia. 4. Congenital heart disease. PLAN: Continue to follow. She is being seen by Gastroenterology. Her progress is slow. MMODL / IJN: [id number] /
[2020-02-09 16:27] LABS: % Iron Saturation 3.55 (12.00-45.00); Iron 13 ug/dL (50-170); Total Iron Binding Capacity 366 ug/dL (228-460)
--- NOTE | 2020-02-09 22:32 | PN ---
PROGRESS NOTE DATE OF SERVICE: 02/09/2020 REASON FOR FOLLOWUP: Acute pancreatitis. INTERVAL HISTORY: The patient is currently afebrile. The patient is breathing comfortably. Denies having any chest pain or shortness of breath or cough. Abdominal pain has improved. No further vomiting. PHYSICAL EXAMINATION: Blood pressure is 127/65 with a pulse of 79, temperature 97.5. She is 92% on room air. General description is a middle-aged female lying in bed in no distress. RESPIRATORY SYSTEM: Unlabored breathing. Clear to auscultation anteriorly. HEART: S1, S2. Regular rate and rhythm. ABDOMEN: Soft. No tenderness. LABS: Hemoglobin 7.2, white count 13,000 with a BUN of 6, creatinine 0.62. DIAGNOSTIC IMPRESSION AND PLAN: Patient with leukocytosis, likely secondary to pancreatitis, without evidence of any pseudocyst. White count is showing downward trend. Blood cultures have been negative. Continue Zosyn. Monitor clinical course closely. MMODL / IJN: [id number] /
[2020-02-10] MEDS: diphenhydrAMINE 50 MG/ML 1 ML VIAL IVP PRN ×2 (02:13→09:21)
[2020-02-10] MEDS: HYDROmorphone 0.5 MG/0.5 ML SYRINGE IVP PRN ×4 (04:09→22:36)
[2020-02-10] MEDS: PANTOPRAZOLE 40 MG TABLET PO SCH ×2 (04:10→17:14)
[2020-02-10] MEDS: THIAMINE 100 MG TAB PO SCH ×2 (04:10→17:18)
[2020-02-10] MEDS: METOPROLOL TARTRATE 50 MG TAB PO SCH ×2 (09:20→20:33)
[2020-02-10] MEDS: SPIRONOLACTONE 25 MG TAB PO SCH (09:21)
[2020-02-10] MEDS: FUROSEMIDE 80 MG TAB PO SCH (09:21)
[2020-02-10] MEDS: POTASSIUM CHLORIDE ER 20 MEQ TAB.ER PO SCH ×2 (09:21→20:33)
[2020-02-10] MEDS: DIGOXIN 125 MCG TAB PO SCH (09:21)
[2020-02-10] MEDS: LORATADINE 10 MG TAB PO SCH (09:21)
[2020-02-10] MEDS: PIPERACILLIN-TAZOBACTAM 3.375 GM in SODIUM CHLORIDE 0.9% 100 ML IVPB SCH ×3 (09:23→22:38)
[2020-02-10] MEDS: LORazepam 0.5 MG TAB PO PRN ×2 (10:18→20:34)
[2020-02-10] MEDS: SODIUM FERRIC GLUCONAT-SUCROSE 125 MG in SODIUM CHLORIDE 0.9% 100 ML IVPB SCH (12:06)
[2020-02-10] MEDS: SODIUM CHLORIDE 0.9% 1,000 ML IV SCH ×2 (12:24→22:39)
--- NOTE | 2020-02-10 12:42 | P.PN ---
Subjective Progress Note Date: 02/10/20 CHIEF COMPLAINT: Pancreatitis and gallstones HISTORY OF PRESENT ILLNESS: The patient is a 34-year-old female who presented with hematemesis, chronic liver disease, alcohol abuse including pancreatitis. Additional workup confirmed thickened gallbladder wall for cholecystitis. She still reports abdominal pain. She is tolerating regular diet. ROS: No fevers or chills. No new chest pain. No recent strokes. PHYSICAL EXAM: VITAL SIGNS: Reviewed CONSTITUTIONAL: Well developed and in no acute distress. EYES: Conjuctivae without sclera icterus. Extraocular movements grossly intact. HEAD, EARS, NOSE, THROAT: Moist buccal mucosa. Head is atraumatic, normocephalic. Hears conversational speech. No nasal drainage. NECK: Supple. No thyroidomegaly. RESPIRATORY: Non-labored respirations and equal bilateral excursions. CARDIOVASCULAR: Palpable 2+ radial pulses. ABDOMEN: Soft. No peritonitis. MUSCULOSKELETAL: No gross deformity of the lower extremities noted. No clubbing. No cyanosis. SKIN: Good skin turgor. Well perfused. NEUROLOGIC: Cranial nerves II through XII grossly intact. No focal or lateralizing signs. PSYCH: Flat affect and lethargic. Alert to self. CLINICAL LABS: White blood cell count down from 17.2 to 7.1 now normal. Lipase still elevated 666 from 5812. ASSESSMENT: 1. Pancreatitis 2. Cholecystitis PLAN: 1. Await improvement of pancreatitis 2. Diet as tolerated 3. Continue antibiotics 4. Cholecystectomy as outpatient Objective - Vital Signs Vital signs: Vital Signs Temp 97.3 F L 02/10/20 11:23 Pulse 67 02/10/20 11:23 Resp 16 02/10/20 11:23 BP 111/65 02/10/20 11:23 Pulse Ox 96 02/10/20 11:23 Intake & Output 02/09/20 02/10/20 02/10/20 18:59 06:59 18:59 Intake Total 924 600 90 Balance 924 600 90 Weight 64.3 kg 63.7 kg Intake: Intake, IV Titration 300 600 Amount Piperacillin-Tazobactam 3 100 .375 gm In Sodium Chloride 0.9% 100 ml @ 25 mls/hr IVPB Q8HR [facility] Rx# :[id number] Sodium Chloride 0.9% 1, 300 500 000 ml @ 100 mls/hr IV . Q10H [facility] Rx#:[id number] Oral 624 90 Other: Voiding Method Toilet # Voids 3 2 1 - Labs CBC & Chem 7: 02/10/20 14:00 02/10/20 14:00 Labs: Abnormal Lab Results - Last 24 Hours (Table) 02/09/20 Range/Units 07:10 Iron 13 L (50-170) ug/dL % Saturation 3.55 L (12.00-45.00) Microbiology - Last 24 Hours (Table) 02/07/20 15:55 Blood Culture - Preliminary Blood No Growth after 48 hours 02/08/20 11:43 Blood Culture - Preliminary Blood No Growth after 24 hours Assessment and Plan (1) Hematemesis Current Visit: Yes Status: Acute Code(s): K92.0 - HEMATEMESIS SNOMED Code(s): 2244290 (2) Pancreatitis Current Visit: Yes Status: Acute Code(s): K85.90 - ACUTE PANCREATITIS WITHOUT NECROSIS OR INFECTION, UNSP SNOMED Code(s): 66999177 (3) Acute pancreatitis Current Visit: No Status: Acute Code(s): K85.90 - ACUTE PANCREATITIS WITHOUT NECROSIS OR INFECTION, UNSP SNOMED Code(s): 384711504 (4) Alcohol use disorder Current Visit: No Status: Acute Priority: Medium Code(s): FJL9607 - SNOMED Code(s): 8492386 (5) Alcoholic liver disease Current Visit: No Status: Acute Code(s): K70.9 - ALCOHOLIC LIVER DISEASE, UNSPECIFIED SNOMED Code(s): 89254814 (6) Depression Current Visit: No Status: Acute Code(s): F32.9 - MAJOR DEPRESSIVE DISORDER, SINGLE EPISODE, UNSPECIFIED SNOMED Code(s): 01210133
[2020-02-10 14:33] LABS: Anisocytosis Marked; HCT 23.5 % (34.0-46.0); Hypochromasia Marked; MCH 23.4 pg (25.0-35.0); MCHC 29.2 g/dL (31.0-37.0); MCV 80.4 fL (80.0-100.0); Mean Platelet Volume 8.4; Microcytosis Moderate; Platelet Count 258 k/uL (150-450); Poikilocytosis Marked; RBC 2.93 m/uL (3.80-5.40); RDW 24.5 % (11.5-15.5); WBC 7.1 k/uL (3.8-10.6)
[2020-02-10 14:37] LABS: ALT 31 U/L (4-34); AST 52 U/L (14-36); African American GFR (CKD) >90 (>60 ml/min/1.73 sqM); Albumin 3.3 g/dL (3.5-5.0); Alkaline Phosphatase 116 U/L (38-126); Anion Gap 9 mmol/L; Blood Urea Nitrogen 4 mg/dL (7-17); Calcium 8.2 mg/dL (8.4-10.2); Carbon Dioxide 26 mmol/L (22-30); Chloride 100 mmol/L (98-107); Glucose 86 mg/dL (74-99); Non-African American GFR(CKD) >90 (>60 ml/min/1.73 sqM); Potassium 3.3 mmol/L (3.5-5.1); Sodium 135 mmol/L (137-145); Total Protein 6.2 g/dL (6.3-8.2)
[2020-02-10 14:38] LABS: HGB 6.9 gm/dL (11.4-16.0)
[2020-02-10 14:55] LABS: Basophils # (M) 0.07 k/uL (0-0.2); Eosinophils # (M) 0.21 k/uL (0-0.7); Lymphocytes # (M) 0.85 k/uL (1.0-4.8); Monocytes # (M) 0.28 k/uL (0-1.0); Neutrophils # (M) 5.68 k/uL (1.3-7.7); Neutrophils % (M) 80 %; Nucleated Red Blood Cells 0 /100 WBC (0-0); Total Cells Counted 100
[2020-02-10] MEDS: diphenhydrAMINE 25 MG CAP PO PRN (15:30)
--- NOTE | 2020-02-10 16:13 | PN ---
PROGRESS NOTE DATE OF SERVICE: 02/10/2020 REASON FOR FOLLOW UP: Leukocytosis and pancreatitis. INTERVAL HISTORY: The patient is currently afebrile. The patient overall is feeling better. She is breathing comfortably. Denies any chest pain or cough. Abdominal pain has improved. She has been tolerating a regular diet. No vomiting or diarrhea. PHYSICAL EXAMINATION: Blood pressure 111/65, pulse of 67, temperature 97.8. She is 96% on room air. General description is a middle-aged female up in the bed in no distress. Respiratory system: Unlabored breathing, clear to auscultation anteriorly. Heart S1, S2. Regular rate and rhythm. Abdomen soft, no tenderness. LABS: Hemoglobin 6.8, white count 7.1, BUN of 4 creatinine 0.48. Blood culture has been negative. DIAGNOSTIC IMPRESSION AND PLAN: Patient with leukocytosis, likely secondary to pancreatitis with no evidence of any pancreatic pseudocyst. The patient's white count has normalized. Blood culture has been negative so far. Continue Zosyn, switch to oral antibiotic on discharge. Continue supportive care. MMODL / IJN: [id number] /
--- NOTE | 2020-02-10 16:37 | P.PN ---
Subjective Progress Note Date: 02/09/20 Principal diagnosis: Pancreatitis, iron deficiency anemia Patient seen lying in bed reporting that she is tolerating her diet. No nausea, vomiting but she is still having some abdominal pain. Objective - Vital Signs Vital signs: Vital Signs Temp 98.4 F 02/09/20 03:28 Pulse 72 02/09/20 03:28 Resp 14 02/09/20 03:28 BP 101/50 02/09/20 03:28 Pulse Ox 92 L 02/09/20 03:28 Intake & Output 02/08/20 02/09/20 02/09/20 18:59 06:59 18:59 Intake Total 100 Balance 100 Weight 64.5 kg 64.3 kg Intake: Intake, IV Titration 100 Amount Piperacillin-Tazobactam 3 100 .375 gm In Sodium Chloride 0.9% 100 ml @ 25 mls/hr IVPB Q8HR [facility] Rx# :[id number] Other: Voiding Method Toilet # Voids 2 2 - Exam On physical examination, patient appears comfortable in no apparent distress. HEAD: Normocephalic, atraumatic. EYES: No scleral icterus. No conjunctival injection. MOUTH: No lesions, tongue midline. NECK: Trachea midline, no gross abnormalities. ABDOMEN: Soft, mildly tender to palpation. Bowel sounds are positive. No organomegaly. No guarding or rigidity. EXTREMITIES: No pedal edema. SKIN: No rashes, no jaundice. NEUROLOGIC: Alert and oriented x3. No focal deficits. - Labs CBC & Chem 7: 02/10/20 14:00 02/10/20 14:00 Labs: Abnormal Lab Results - Last 24 Hours (Table) 02/08/20 02/09/20 02/09/20 Range/Units 11:43 07:10 07:10 WBC 13.0 H (3.8-10.6) k/uL RBC 3.09 L (3.80-5.40) m/uL Hgb 7.2 L (11.4-16.0) gm/dL Hct 24.7 L (34.0-46.0) % MCH 23.4 L (25.0-35.0) pg MCHC 29.2 L (31.0-37.0) g/dL RDW 25.2 H (11.5-15.5) % PT 14.6 H (9.0-12.0) sec INR 1.5 H (<1.2) Sodium 135 L (137-145) mmol/L Potassium 3.4 L (3.5-5.1) mmol/L BUN 6 L (7-17) mg/dL Calcium 8.2 L (8.4-10.2) mg/dL Total Bilirubin 4.6 H (0.2-1.3) mg/dL AST 84 H (14-36) U/L ALT 41 H (4-34) U/L Total Protein 6.1 L (6.3-8.2) g/dL Albumin 3.3 L (3.5-5.0) g/dL Lipase 993 H (23-300) U/L Microbiology - Last 24 Hours (Table) 02/07/20 15:55 Blood Culture - Preliminary Blood No Growth after 24 hours Assessment and Plan (1) Hematemesis Narrative/Plan: 34-year-old female with multiple medical comorbidities presents to the hospital with symptoms of abdominal pain and hematemesis. Currently being treated for acute pancreatitis with lipase greater than 900 and findings of inflammation of the pancreas on computed tomography scan of the abdomen. Ultrasound with findings of gallbladder wall thickening suspicious for acute acalculous cholecystitis with no evidence of stones or biliary dilation on ultrasound or CT imaging. He not rule out a component of alcoholic hepatitis given typical elevation of AST: ALT. No further episodes of hematemesis. Patient had EGD and colonoscopy in October 2019 for evaluation of anemia with findings of mild gastritis and internal hemorrhoids. Current Visit: Yes Status: Acute Code(s): K92.0 - HEMATEMESIS SNOMED Code(s): 3897862 (2) Alcohol intoxication Current Visit: Yes Status: Acute Code(s): F10.929 - ALCOHOL USE, UNSPECIFIED WITH INTOXICATION, UNSPECIFIED SNOMED Code(s): 40099969 (3) Acute pancreatitis Current Visit: No Status: Acute Code(s): K85.90 - ACUTE PANCREATITIS WITHOUT NECROSIS OR INFECTION, UNSP SNOMED Code(s): 561082905 (4) Hepatitis Current Visit: No Status: Acute Code(s): K75.9 - INFLAMMATORY LIVER DISEASE, UNSPECIFIED SNOMED Code(s): 803552760 (5) Microcytic hypochromic anemia Current Visit: No Status: Acute Priority: High Code(s): D50.9 - IRON DEFICIENCY ANEMIA, UNSPECIFIED SNOMED Code(s): 23988083 Plan: Supportive care Okay for diet as tolerated Continue IV fluid hydration Continue pain control Surgical service following the patient Continue to monitor CBC, BMP, LFTs Extensive discussion with the patient regarding alcohol abstinence No plans for endoscopic evaluation at this time given EGD and colonoscopy in October 2019 Acute viral hepatitis panel negative Continue Protonix twice daily IV iron supplementation ordered If liver enzymes remain elevated may consider MRCP for further evaluation, however no cholelithiasis noted on either ultrasound or computed tomography scan of the abdomen and suspicion is that liver enzymes are elevated in the setting of alcoholic hepatitis Thank you for allowing us to participate in the care of the patient we will continue to follow
--- NOTE | 2020-02-10 16:39 | P.PN ---
Subjective Progress Note Date: 02/10/20 Principal diagnosis: Pancreatitis, iron deficiency anemia, hematemesis Patient seen lying in bed still reporting some abdominal pain but improving. No further hematemesis since presentation. Tolerating her diet. Objective - Vital Signs Vital signs: Vital Signs Temp 97.4 F L 02/10/20 08:00 Pulse 66 02/10/20 08:00 Resp 16 02/10/20 08:00 BP 103/56 02/10/20 08:00 Pulse Ox 95 02/10/20 08:00 Intake & Output 02/09/20 02/10/20 02/10/20 18:59 06:59 18:59 Intake Total 924 600 90 Balance 924 600 90 Weight 64.3 kg 63.7 kg Intake: Intake, IV Titration 300 600 Amount Piperacillin-Tazobactam 3 100 .375 gm In Sodium Chloride 0.9% 100 ml @ 25 mls/hr IVPB Q8HR MICHAEL Rx# :[id number] Sodium Chloride 0.9% 1, 300 500 000 ml @ 100 mls/hr IV . Q10H MICHAEL Rx#:[id number] Oral 624 90 Other: Voiding Method Toilet # Voids 3 2 1 - Exam On physical examination, patient appears comfortable in no apparent distress. HEAD: Normocephalic, atraumatic. EYES: No scleral icterus. No conjunctival injection. MOUTH: No lesions, tongue midline. NECK: Trachea midline, no gross abnormalities. ABDOMEN: Soft, mildly tender to palpation. Bowel sounds are positive. No org anomegaly. No guarding or rigidity. EXTREMITIES: No pedal edema. SKIN: No rashes, no jaundice. NEUROLOGIC: Alert and oriented x3. No focal deficits. - Labs CBC & Chem 7: 02/10/20 14:00 02/10/20 14:00 Labs: Abnormal Lab Results - Last 24 Hours (Table) 02/09/20 Range/Units 07:10 Iron 13 L (50-170) ug/dL % Saturation 3.55 L (12.00-45.00) Microbiology - Last 24 Hours (Table) 02/07/20 15:55 Blood Culture - Preliminary Blood No Growth after 48 hours 02/08/20 11:43 Blood Culture - Preliminary Blood No Growth after 24 hours Assessment and Plan (1) Hematemesis Narrative/Plan: 34-year-old female with multiple medical comorbidities presents to the hospital with symptoms of abdominal pain and hematemesis. Currently being treated for acute pancreatitis with lipase greater than 900 and findings of inflammation of the pancreas on computed tomography scan of the abdomen. Ultrasound with findings of gallbladder wall thickening suspicious for acute acalculous cholecystitis with no evidence of stones or biliary dilation on ultrasound or CT imaging. He not rule out a component of alcoholic hepatitis given typical elevation of AST: ALT. No further episodes of hematemesis. Patient had EGD and colonoscopy in October 2019 for evaluation of anemia with findings of mild gastritis and internal hemorrhoids. Current Visit: Yes Status: Acute Code(s): K92.0 - HEMATEMESIS SNOMED Code(s): 3962249 (2) Alcohol intoxication Current Visit: Yes Status: Acute Code(s): F10.929 - ALCOHOL USE, UNSPECIFIED WITH INTOXICATION, UNSPECIFIED SNOMED Code(s): 21112671 (3) Acute pancreatitis Current Visit: No Status: Acute Code(s): K85.90 - ACUTE PANCREATITIS WITHOUT NECROSIS OR INFECTION, UNSP SNOMED Code(s): 717688655 (4) Hepatitis Current Visit: No Status: Acute Code(s): K75.9 - INFLAMMATORY LIVER DISEASE, UNSPECIFIED SNOMED Code(s): 002070734 (5) Microcytic hypochromic anemia Current Visit: No Status: Acute Priority: High Code(s): D50.9 - IRON DEFICIENCY ANEMIA, UNSPECIFIED SNOMED Code(s): 78549001 Plan: Supportive care Okay for diet as tolerated Continue IV fluid hydration Continue pain control Surgical service following the patient Continue to monitor CBC, BMP, LFTs Extensive discussion with the patient regarding alcohol abstinence No plans for endoscopic evaluation at this time given EGD and colonoscopy in October 2019 Acute viral hepatitis panel negative Continue Protonix twice daily IV iron supplementation ordered If liver enzymes remain elevated may consider MRCP for further evaluation, however no cholelithiasis noted on either ultrasound or computed tomography scan of the abdomen and suspicion is that liver enzymes are elevated in the setting of alcoholic hepatitis Thank you for allowing us to participate in the care of the patient we will continue to follow
--- NOTE | 2020-02-10 21:39 | EEG ---
ELECTROENCEPHALOGRAM REPORT CHIEF COMPLAINT: Pancreatitis, cirrhosis, alcoholism, and alcoholic hepatitis. HISTORY OF PRESENT ILLNESS: This lady is doing slightly better. She is a little bit more awake and alert. Hemoglobin is still dropping, however, and she will be given another unit of packed cells. Liver function studies and lipase are slowly going down. PHYSICAL EXAMINATION: She remains slightly jaundice. Head, ears, eyes, nose, mouth, throat are normal. Chest is clear. Cardiac exam is normal. The abdomen is slightly protuberant and tender over the epigastrium. IMPRESSION: 1. Alcoholic pancreatitis. 2. Alcoholism. 3. Congenital heart disease. 4. Alcoholic hepatitis. 5. Cholecystitis. 6. Anemia. PLAN: 1. 1 unit of packed cells. 2. Continue to monitor liver function studies, pancreas, pancreatitis and anemia. MMODL / IJN: [id number] /
[2020-02-11] MEDS: diphenhydrAMINE 25 MG CAP PO PRN ×3 (02:25→20:08)
[2020-02-11] MEDS: SODIUM CHLORIDE 0.9% 1,000 ML IV SCH ×2 (06:18→16:43)
[2020-02-11] MEDS: PANTOPRAZOLE 40 MG TABLET PO SCH ×2 (06:18→16:43)
[2020-02-11] MEDS: THIAMINE 100 MG TAB PO SCH ×2 (06:18→16:43)
[2020-02-11] MEDS: HYDROmorphone 0.5 MG/0.5 ML SYRINGE IVP PRN ×4 (06:18→22:59)
[2020-02-11] MEDS: DIGOXIN 125 MCG TAB PO SCH (08:00)
[2020-02-11] MEDS: FUROSEMIDE 80 MG TAB PO SCH (08:00)
[2020-02-11] MEDS: POTASSIUM CHLORIDE ER 20 MEQ TAB.ER PO SCH ×2 (08:00→20:08)
[2020-02-11] MEDS: PIPERACILLIN-TAZOBACTAM 3.375 GM in SODIUM CHLORIDE 0.9% 100 ML IVPB SCH ×3 (08:01→23:54)
[2020-02-11] MEDS: LORazepam 0.5 MG TAB PO PRN ×3 (08:01→22:58)
[2020-02-11] MEDS: LORATADINE 10 MG TAB PO SCH (08:01)
[2020-02-11] MEDS: SPIRONOLACTONE 25 MG TAB PO SCH ×2 (08:01→09:13)
[2020-02-11] MEDS: METOPROLOL TARTRATE 50 MG TAB PO SCH ×3 (08:01→20:08)
[2020-02-11 08:02] LABS: African American GFR (CKD) >90 (>60 ml/min/1.73 sqM); Anion Gap 10 mmol/L; Blood Urea Nitrogen 3 mg/dL (7-17); Calcium 8.4 mg/dL (8.4-10.2); Carbon Dioxide 24 mmol/L (22-30); Chloride 101 mmol/L (98-107); Glucose 62 mg/dL (74-99); Non-African American GFR(CKD) >90 (>60 ml/min/1.73 sqM); Potassium 3.5 mmol/L (3.5-5.1); Sodium 135 mmol/L (137-145)
[2020-02-11 08:09] LABS: Anisocytosis Moderate; Basophils % (A) 1 %; Eosinophils # (A) 0.2 k/uL (0-0.7); Eosinophils % (A) 3 %; HGB 7.9 gm/dL (11.4-16.0); Hypochromasia Marked; Lymphocytes % (A) 15 %; MCH 24.8 pg (25.0-35.0); MCHC 30.5 g/dL (31.0-37.0); MCV 81.5 fL (80.0-100.0); Mean Platelet Volume 8.4; Microcytosis Moderate; Monocytes # (A) 0.5 k/uL (0-1.0); Monocytes % (A) 8 %; Neutrophils # (A) 4.5 k/uL (1.3-7.7); Neutrophils % (A) 71 %; Platelet Count 266 k/uL (150-450); Poikilocytosis Marked; RDW 22.9 % (11.5-15.5); WBC 6.3 k/uL (3.8-10.6)
[2020-02-11] MEDS: SODIUM FERRIC GLUCONAT-SUCROSE 125 MG in SODIUM CHLORIDE 0.9% 100 ML IVPB SCH (09:13)
--- NOTE | 2020-02-11 12:49 | P.PN ---
Subjective Progress Note Date: 02/11/20 Principal diagnosis: Pancreatitis, iron deficiency anemia, hematemesis Patient seen lying in bed reporting abdominal pain is improved. No nausea or vomiting. She does report tolerating her diet. Status post 1 unit of PRBCs yesterday. Objective - Vital Signs Vital signs: Vital Signs Temp 96.6 F L 02/11/20 12:00 Pulse 64 02/11/20 12:00 Resp 18 02/11/20 12:00 BP 104/59 02/11/20 12:00 Pulse Ox 94 L 02/11/20 12:00 Intake & Output 02/10/20 02/11/20 02/11/20 18:59 06:59 18:59 Intake Total 810 600 Balance 810 600 Weight 64.3 kg Intake: Intake, IV Titration 600 Amount Piperacillin-Tazobactam 3 100 .375 gm In Sodium Chloride 0.9% 100 ml @ 25 mls/hr IVPB Q8HR MICHAEL Rx# :[id number] Sodium Chloride 0.9% 1, 500 000 ml @ 100 mls/hr IV . Q10H MICHAEL Rx#:[id number] Oral 810 Blood Product 0 Rc Pheresis 2 As3 Unit 0 [id number] Other: Voiding Method Toilet Toilet # Voids 1 2 - Exam On physical examination, patient appears comfortable in no apparent distress. HEAD: Normocephalic, atraumatic. EYES: No scleral icterus. No conjunctival injection. MOUTH: No lesions, tongue midline. NECK: Trachea midline, no gross abnormalities. ABDOMEN: Soft, mildly tender to palpation. Bowel sounds are positive. No organomegaly. No guarding or rigidity. EXTREMITIES: No pedal edema. SKIN: No rashes, no jaundice. NEUROLOGIC: Alert and oriented x3. No focal deficits. - Labs CBC & Chem 7: 02/11/20 06:43 02/11/20 06:43 Labs: Abnormal Lab Results - Last 24 Hours (Table) 02/10/20 02/10/20 02/10/20 Range/Units 14:00 14:00 15:19 RBC 2.93 L (3.80-5.40) m/uL Hgb 6.9 L* (11.4-16.0) gm/dL Hct 23.5 L (34.0-46.0) % MCH 23.4 L (25.0-35.0) pg MCHC 29.2 L (31.0-37.0) g/dL RDW 24.5 H (11.5-15.5) % Lymphocytes # (Manual) 0.85 L (1.0-4.8) k/uL Sodium 135 L (137-145) mmol/L Potassium 3.3 L (3.5-5.1) mmol/L BUN 4 L (7-17) mg/dL Creatinine 0.48 L (0.52-1.04) mg/dL Glucose (74-99) mg/dL Calcium 8.2 L (8.4-10.2) mg/dL Total Bilirubin 5.0 H (0.2-1.3) mg/dL AST 52 H (14-36) U/L Total Protein 6.2 L (6.3-8.2) g/dL Albumin 3.3 L (3.5-5.0) g/dL Lipase 666 H (23-300) U/L Crossmatch See Detail 02/11/20 02/11/20 Range/Units 06:43 06:43 RBC 3.20 L (3.80-5.40) m/uL Hgb 7.9 L (11.4-16.0) gm/dL Hct 26.0 L (34.0-46.0) % MCH 24.8 L (25.0-35.0) pg MCHC 30.5 L (31.0-37.0) g/dL RDW 22.9 H (11.5-15.5) % Lymphocytes # (Manual) (1.0-4.8) k/uL Sodium 135 L (137-145) mmol/L Potassium (3.5-5.1) mmol/L BUN 3 L (7-17) mg/dL Creatinine 0.51 L (0.52-1.04) mg/dL Glucose 62 L (74-99) mg/dL Calcium (8.4-10.2) mg/dL Total Bilirubin (0.2-1.3) mg/dL AST (14-36) U/L Total Protein (6.3-8.2) g/dL Albumin (3.5-5.0) g/dL Lipase (23-300) U/L Crossmatch Microbiology - Last 24 Hours (Table) 02/07/20 15:55 Blood Culture - Preliminary Blood No Growth after 72 hours 02/08/20 11:43 Blood Culture - Preliminary Blood No Growth after 48 hours Assessment and Plan (1) Hematemesis Narrative/Plan: 34-year-old female with multiple medical comorbidities presents to the hospital with symptoms of abdominal pain and hematemesis. Currently being treated for acute pancreatitis with lipase greater than 900 and findings of inflammation of the pancreas on computed tomography scan of the abdomen. Ultrasound with findings of gallbladder wall thickening suspicious for acute acalculous cholecystitis with no evidence of stones or biliary dilation on ultrasound or CT imaging. He not rule out a component of alcoholic hepatitis given typical elevation of AST: ALT. No further episodes of hematemesis. Patient had EGD and colonoscopy in October 2019 for evaluation of anemia with findings of mild gastritis and internal hemorrhoids. Current Visit: Yes Status: Acute Code(s): K92.0 - HEMATEMESIS SNOMED Code(s): 8060274 (2) Alcohol intoxication Current Visit: Yes Status: Acute Code(s): F10.929 - ALCOHOL USE, UNSPECIFIED WITH INTOXICATION, UNSPECIFIED SNOMED Code(s): 85440904 (3) Acute pancreatitis Current Visit: No Status: Acute Code(s): K85.90 - ACUTE PANCREATITIS WITHOUT NECROSIS OR INFECTION, UNSP SNOMED Code(s): 194707378 (4) Hepatitis Current Visit: No Status: Acute Code(s): K75.9 - INFLAMMATORY LIVER DISEASE, UNSPECIFIED SNOMED Code(s): 093066185 (5) Microcytic hypochromic anemia Current Visit: No Status: Acute Priority: High Code(s): D50.9 - IRON DEFICIENCY ANEMIA, UNSPECIFIED SNOMED Code(s): 71021455 Plan: Supportive care Okay for diet as tolerated Continue IV fluid hydration Continue pain control Surgical service following the patient Continue to monitor CBC, BMP, LFTs Extensive discussion with the patient regarding alcohol abstinence No plans for endoscopic evaluation at this time given EGD and colonoscopy in October 2019 Acute viral hepatitis panel negative Continue Protonix twice daily IV iron supplementation ordered If liver enzymes remain elevated may consider MRCP for further evaluation, however no cholelithiasis noted on either ultrasound or computed tomography scan of the abdomen and suspicion is that liver enzymes are elevated in the setting of alcoholic hepatitis Thank you for allowing us to participate in the care of the patient we will continue to follow
--- NOTE | 2020-02-11 12:54 | P.PN ---
Subjective Progress Note Date: 02/11/20 CHIEF COMPLAINT: Pancreatitis HISTORY OF PRESENT ILLNESS: The patient is a 34-year-old female who presented with hematemesis, chronic liver disease, alcohol abuse including pancreatitis. Additional workup confirmed thickened gallbladder wall for cholecystitis. She is feeling much better today. She is more awake and alert and conversant. She is eating regular diet without complaints. No abdominal pain. ROS: No fevers or chills. No new chest pain. No recent strokes. PHYSICAL EXAM: VITAL SIGNS: Reviewed CONSTITUTIONAL: Well developed and in no acute distress. EYES: Conjuctivae without sclera icterus. Extraocular movements grossly intact. HEAD, EARS, NOSE, THROAT: Moist buccal mucosa. Head is atraumatic, normocephalic. Hears conversational speech. No nasal drainage. NECK: Supple. No thyroidomegaly. RESPIRATORY: Non-labored respirations and equal bilateral excursions. CARDIOVASCULAR: Palpable 2+ radial pulses. ABDOMEN: Soft. Non-tender MUSCULOSKELETAL: No gross deformity of the lower extremities noted. No clubbing. No cyanosis. SKIN: Good skin turgor. Well perfused. NEUROLOGIC: Cranial nerves II through XII grossly intact. No focal or lateralizing signs. PSYCH: Appropriate affect. CLINICAL LABS: White blood cell count down from 17.2 to 7.1 now 6.3. Hgb 7.9 today ASSESSMENT: 1. Pancreatitis 2. Cholecystitis PLAN: 1. She is doing very well. 2. Agreeable for discharge once medically stable 3. Outpatient cholecystectomy Objective - Vital Signs Vital signs: Vital Signs Temp 96.6 F L 02/11/20 12:00 Pulse 64 02/11/20 12:00 Resp 18 02/11/20 12:00 BP 104/59 02/11/20 12:00 Pulse Ox 94 L 02/11/20 12:00 Intake & Output 02/10/20 02/11/20 02/11/20 18:59 06:59 18:59 Intake Total 810 600 Balance 810 600 Weight 64.3 kg Intake: Intake, IV Titration 600 Amount Piperacillin-Tazobactam 3 100 .375 gm In Sodium Chloride 0.9% 100 ml @ 25 mls/hr IVPB Q8HR MICHAEL Rx# :[id number] Sodium Chloride 0.9% 1, 500 000 ml @ 100 mls/hr IV . Q10H MICHAEL Rx#:[id number] Oral 810 Blood Product 0 Rc Pheresis 2 As3 Unit 0 [id number] Other: Voiding Method Toilet Toilet # Voids 1 2 - Labs CBC & Chem 7: 02/11/20 06:43 02/11/20 06:43 Labs: Abnormal Lab Results - Last 24 Hours (Table) 02/10/20 02/10/20 02/10/20 Range/Units 14:00 14:00 15:19 RBC 2.93 L (3.80-5.40) m/uL Hgb 6.9 L* (11.4-16.0) gm/dL Hct 23.5 L (34.0-46.0) % MCH 23.4 L (25.0-35.0) pg MCHC 29.2 L (31.0-37.0) g/dL RDW 24.5 H (11.5-15.5) % Lymphocytes # (Manual) 0.85 L (1.0-4.8) k/uL Sodium 135 L (137-145) mmol/L Potassium 3.3 L (3.5-5.1) mmol/L BUN 4 L (7-17) mg/dL Creatinine 0.48 L (0.52-1.04) mg/dL Glucose (74-99) mg/dL Calcium 8.2 L (8.4-10.2) mg/dL Total Bilirubin 5.0 H (0.2-1.3) mg/dL AST 52 H (14-36) U/L Total Protein 6.2 L (6.3-8.2) g/dL Albumin 3.3 L (3.5-5.0) g/dL Lipase 666 H (23-300) U/L Crossmatch See Detail 02/11/20 02/11/20 Range/Units 06:43 06:43 RBC 3.20 L (3.80-5.40) m/uL Hgb 7.9 L (11.4-16.0) gm/dL Hct 26.0 L (34.0-46.0) % MCH 24.8 L (25.0-35.0) pg MCHC 30.5 L (31.0-37.0) g/dL RDW 22.9 H (11.5-15.5) % Lymphocytes # (Manual) (1.0-4.8) k/uL Sodium 135 L (137-145) mmol/L Potassium (3.5-5.1) mmol/L BUN 3 L (7-17) mg/dL Creatinine 0.51 L (0.52-1.04) mg/dL Glucose 62 L (74-99) mg/dL Calcium (8.4-10.2) mg/dL Total Bilirubin (0.2-1.3) mg/dL AST (14-36) U/L Total Protein (6.3-8.2) g/dL Albumin (3.5-5.0) g/dL Lipase (23-300) U/L Crossmatch Microbiology - Last 24 Hours (Table) 02/07/20 15:55 Blood Culture - Preliminary Blood No Growth after 72 hours 02/08/20 11:43 Blood Culture - Preliminary Blood No Growth after 48 hours Assessment and Plan (1) Hematemesis Current Visit: Yes Status: Acute Code(s): K92.0 - HEMATEMESIS SNOMED Code(s): 7935279 (2) Pancreatitis Current Visit: Yes Status: Acute Code(s): K85.90 - ACUTE PANCREATITIS WIT HOUT NECROSIS OR INFECTION, UNSP SNOMED Code(s): 02124168 (3) Acute pancreatitis Current Visit: No Status: Acute Code(s): K85.90 - ACUTE PANCREATITIS WITHOUT NECROSIS OR INFECTION, UNSP SNOMED Code(s): 935883999 (4) Alcohol use disorder Current Visit: No Status: Acute Priority: Medium Code(s): UQY6459 - SNOMED Code(s): 1434518 (5) Alcoholic liver disease Current Visit: No Status: Acute Code(s): K70.9 - ALCOHOLIC LIVER DISEASE, UNSPECIFIED SNOMED Code(s): 01760248 (6) Depression Current Visit: No Status: Acute Code(s): F32.9 - MAJOR DEPRESSIVE DISORDER, SINGLE EPISODE, UNSPECIFIED SNOMED Code(s): 20094960
--- NOTE | 2020-02-12 00:06 | PN ---
PROGRESS NOTE DATE OF SERVICE: 02/11/2020 REASON FOR FOLLOWUP: Leukocytosis and acute pancreatitis. INTERVAL HISTORY: The patient is currently afebrile. Patient is breathing comfortably. Patient denies having any chest pain or shortness of breath or cough. Abdominal pain has improved. No further nausea, vomiting. Tolerating her diet and no diarrhea. PHYSICAL EXAMINATION: Blood pressure 100/56, pulse of 66, temperature 96.7. She is 96% on 2 L nasal cannula. General description is a middle-aged female up in the bed in no distress. RESPIRATORY SYSTEM: Unlabored breathing, clear to auscultation anteriorly. HEART: S1, S2. Regular rate and rhythm. ABDOMEN: Soft, no tenderness. LABS: Hemoglobin 7.9, white count 6.3. BUN of 3, creatinine 0.51. Blood culture has been negative. DIAGNOSTIC IMPRESSION AND PLAN: Patient with leukocytosis source is likely acute pancreatitis. This patient is currently showing improvement with resolution of her leukocytosis with Zosyn to continue finish therapy with short course of oral Augmentin on discharge. Continue with supportive care. MMODL / IJN: [id number] /
--- NOTE | 2020-02-12 01:33 | PN ---
PROGRESS NOTE CHIEF COMPLAINT: Alcoholic pancreatitis and hepatitis. HISTORY OF PRESENT ILLNESS: This lady is slowly improving. She is much more awake and alert. Her liver functions are starting to trend down as is her lipase. Yesterday, however, her hemoglobin fell before 7. Her iron is low. She was given a unit of packed cells and she has been started on intravenous iron. REVIEW OF SYSTEMS: She feels well. She is oriented and alert. PHYSICAL EXAMINATION: Vital signs are normal. Blood pressure is 100/56. Chest is clear. Cardiac exam is unchanged with her murmur. Abdomen is soft and less tender. Extremities are normal. IMPRESSION: 1. Alcoholic hepatitis and pancreatitis. 2. Continued anemia, probably secondary to a combination of iron deficiency and bone marrow suppression. PLAN: Continue to monitor hemoglobin. Once this is stable, she can probably go home. MMODL / IJN: [id number] /
[2020-02-12] MEDS: HYDROmorphone 0.5 MG/0.5 ML SYRINGE IVP PRN ×4 (04:48→23:34)
[2020-02-12] MEDS: diphenhydrAMINE 25 MG CAP PO PRN ×2 (06:44→21:11)
[2020-02-12] MEDS: PANTOPRAZOLE 40 MG TABLET PO SCH ×2 (06:45→15:46)
[2020-02-12] MEDS: THIAMINE 100 MG TAB PO SCH ×2 (06:45→15:46)
[2020-02-12] MEDS: LORazepam 0.5 MG TAB PO PRN ×3 (06:45→23:34)
[2020-02-12 07:00] LABS: ALT 24 U/L (4-34); AST 42 U/L (14-36); African American GFR (CKD) >90 (>60 ml/min/1.73 sqM); Albumin 3.1 g/dL (3.5-5.0); Alkaline Phosphatase 111 U/L (38-126); Amylase 37 U/L (30-110); Anion Gap 12 mmol/L; Blood Urea Nitrogen 2 mg/dL (7-17); Calcium 8.7 mg/dL (8.4-10.2); Carbon Dioxide 26 mmol/L (22-30); Chloride 99 mmol/L (98-107); Glucose 71 mg/dL (74-99); Non-African American GFR(CKD) >90 (>60 ml/min/1.73 sqM); Potassium 3.6 mmol/L (3.5-5.1); Sodium 137 mmol/L (137-145); Total Bilirubin 4.8 mg/dL (0.2-1.3)
[2020-02-12 07:01] LABS: Anisocytosis Marked; Basophils # (A) 0.1 k/uL (0-0.2); Basophils % (A) 1 %; Eosinophils # (A) 0.2 k/uL (0-0.7); Eosinophils % (A) 3 %; HCT 27.1 % (34.0-46.0); HGB 7.9 gm/dL (11.4-16.0); Hypochromasia Marked; Lymphocytes # (A) 1.4 k/uL (1.0-4.8); Lymphocytes % (A) 22 %; MCH 23.4 pg (25.0-35.0); MCHC 29.2 g/dL (31.0-37.0); MCV 80.3 fL (80.0-100.0); Mean Platelet Volume 7.7; Microcytosis Moderate; Monocytes # (A) 0.6 k/uL (0-1.0); Monocytes % (A) 9 %; Neutrophils # (A) 3.9 k/uL (1.3-7.7); Neutrophils % (A) 61 %; Platelet Count 239 k/uL (150-450); Poikilocytosis Marked; RBC 3.38 m/uL (3.80-5.40); RDW 24.3 % (11.5-15.5); WBC 6.3 k/uL (3.8-10.6)
[2020-02-12] MEDS: POTASSIUM CHLORIDE ER 20 MEQ TAB.ER PO SCH ×2 (08:14→21:08)
[2020-02-12] MEDS: METOPROLOL TARTRATE 50 MG TAB PO SCH ×2 (08:14→21:08)
[2020-02-12] MEDS: PIPERACILLIN-TAZOBACTAM 3.375 GM in SODIUM CHLORIDE 0.9% 100 ML IVPB SCH ×3 (08:14→23:34)
[2020-02-12] MEDS: LORATADINE 10 MG TAB PO SCH (08:14)
[2020-02-12] MEDS: FUROSEMIDE 80 MG TAB PO SCH (08:15)
[2020-02-12] MEDS: SPIRONOLACTONE 25 MG TAB PO SCH (08:15)
[2020-02-12] MEDS: DIGOXIN 125 MCG TAB PO SCH (08:15)
[2020-02-12] MEDS: SODIUM CHLORIDE 0.9% 1,000 ML IV SCH ×2 (11:26→17:44)
--- NOTE | 2020-02-12 11:32 | P.PN ---
Subjective Progress Note Date: 02/12/20 CHIEF COMPLAINT: Gallbladder disease, pancreatitis HISTORY OF PRESENT ILLNESS: Patient examined at the bedside with Dr. Castillo. Patient denies abdominal pain. Denies nausea or vomiting. Tolerating diet. PHYSICAL EXAM: VITAL SIGNS: Reviewed. GENERAL: Well-developed in no acute distress. HEENT: Extraocular movements grossly intact. Moist buccal mucosa. Head is atraumatic, normocephalic. ABDOMEN: Soft. Nondistended. Nontender with palpation. NEUROLOGIC: Alert and oriented. Cranial nerves II through XII grossly intact. ASSESSMENT: 1. Abdominal pain 2. Acute pancreatitis 3. Chronic cholecystitis 4. Hyperbilirubinemia 5. Acute alcohol intoxication on admission 6. Hematemesis on admission PLAN: Stable for discharge home from a surgical standpoint. Plan is for outpatient ch olecystectomy. Patient to follow-up with Dr. Castillo outpatient. Nurse practitioner note has been reviewed by physician. Signing provider agrees with the documented findings, assessment, and plan of care. Objective - Vital Signs Vital signs: Vital Signs Temp 97.7 F 02/12/20 07:55 Pulse 65 02/12/20 07:55 Resp 18 02/12/20 07:55 BP 94/52 02/12/20 07:55 Pulse Ox 93 L 02/12/20 07:55 Intake & Output 02/11/20 02/12/20 02/12/20 18:59 06:59 18:59 Intake Total 400 Output Total 240 Balance 400 -240 Weight 62.4 kg Intake: Oral 400 Output: Urine 240 Other: Voiding Method Toilet # Voids 1 - Labs CBC & Chem 7: 02/12/20 06:31 02/12/20 06:31 Labs: Abnormal Lab Results - Last 24 Hours (Table) 02/12/20 02/12/20 Range/Units 06:31 06:31 RBC 3.38 L (3.80-5.40) m/uL Hgb 7.9 L (11.4-16.0) gm/dL Hct 27.1 L (34.0-46.0) % MCH 23.4 L (25.0-35.0) pg MCHC 29.2 L (31.0-37.0) g/dL RDW 24.3 H (11.5-15.5) % BUN 2 L (7-17) mg/dL Glucose 71 L (74-99) mg/dL Total Bilirubin 4.8 H (0.2-1.3) mg/dL AST 42 H (14-36) U/L Total Protein 6.0 L (6.3-8.2) g/dL Albumin 3.1 L (3.5-5.0) g/dL Lipase 427 H (23-300) U/L Microbiology - Last 24 Hours (Table) 02/07/20 15:55 Blood Culture - Preliminary Blood No Growth after 96 hours 02/08/20 11:43 Blood Culture - Preliminary Blood No Growth after 72 hours
[2020-02-12 11:52] VITALS: BMI 24.3
[2020-02-12] MEDS: SODIUM FERRIC GLUCONAT-SUCROSE 125 MG in SODIUM CHLORIDE 0.9% 100 ML IVPB SCH (12:37)
--- NOTE | 2020-02-12 15:17 | PN ---
PROGRESS NOTE DATE OF SERVICE: 02/12/2020 REASON FOR FOLLOWUP: Leukocytosis secondary to acute pancreatitis. INTERVAL HISTORY: The patient is currently afebrile. The patient is breathing comfortably. Denies having any chest pain or shortness of breath or cough. No nausea, vomiting, abdominal pain or any diarrhea. PHYSICAL EXAMINATION: Blood pressure 94/52 with a pulse of 65, temperature 97.6. She is 93% on room air. General description is a middle-aged female lying in bed in no distress. RESPIRATORY SYSTEM: Unlabored breathing. Clear to auscultation anteriorly. HEART: S1, S2. Regular rate and rhythm. ABDOMEN: Soft. No tenderness. LABS: Hemoglobin 7.8, white count 6.3, BUN of 2, creatinine 0.54. Blood culture has been negative. DIAGNOSTIC IMPRESSION AND PLAN: Patient with leukocytosis likely secondary to pancreatitis with no evidence of any abscess or pseudocyst. Overall resolution of leukocytosis on Zosyn. Transition to oral Augmentin on discharge for a short course. Continue with supportive care. MMODL / IJN: [id number] /
--- NOTE | 2020-02-12 17:16 | PN ---
PROGRESS NOTE DATE OF SERVICE: 02/12/2020 CHIEF COMPLAINT: Pancreatitis, alcoholic hepatitis and anemia. HISTORY OF PRESENT ILLNESS: This lady is doing quite well and is feeling better each day. She did require a unit of packed cells in the last 48 hours. If her hemoglobin remains stable and nothing further transpires, she can probably go home tomorrow. PHYSICAL EXAMINATION: Her chest is clear. Cardiac exam is unchanged. Her abdomen is still a little bit distended, but less tender. IMPRESSION: 1. Alcoholic pancreatitis. 2. Alcoholic hepatitis. 3. Anemia. 4. Congenital heart disease. PLAN: Possibly home in the next day or two. MMODL / IJN: [id number] /
--- NOTE | 2020-02-12 21:36 | P.PN ---
Subjective Progress Note Date: 02/12/20 Principal diagnosis: Pancreatitis, iron deficiency anemia, hematemesis Patient seen lying in bed and denying any abdominal pain. Tolerating diet. No nausea or vomiting. No signs or symptoms GI bleeding. Objective - Vital Signs Vital signs: Vital Signs Temp 98.0 F 02/12/20 15:40 Pulse 58 L 02/12/20 15:40 Resp 18 02/12/20 15:40 BP 101/50 02/12/20 15:40 Pulse Ox 98 02/12/20 15:40 Intake & Output 02/12/20 02/12/20 02/13/20 06:59 18:59 06:59 Intake Total 1636 Output Total 240 Balance -240 1636 Weight 62.4 kg 62.4 kg Intake: Intake, IV Titration 800 Amount Piperacillin-Tazobactam 3 100 .375 gm In Sodium Chloride 0.9% 100 ml @ 25 mls/hr IVPB Q8HR MICHAEL Rx# :[id number] Sodium Chloride 0.9% 1, 600 000 ml @ 100 mls/hr IV . Q10H MICHAEL Rx#:[id number] Sodium Ferric Gluconat- 100 Sucrose 125 mg In Sodium Chloride 0.9% 100 ml @ 100 mls/hr IVPB DAILY MICHAEL Rx#:[id number] Oral 836 Output: Urine 240 Other: Voiding Method Toilet # Voids 1 1 - Exam On physical examination, patient appears comfortable in no apparent distress. HEAD: Normocephalic, atraumatic. EYES: No scleral icterus. No conjunctival injection. MOUTH: No lesions, tongue midline. NECK: Trachea midline, no gross abnormalities. ABDOMEN: Soft, mildly tender to palpation. Bowel sounds are positive. No organomegaly. No guarding or rigidity. EXTREMITIES: No pedal edema. SKIN: No rashes, no jaundice. NEUROLOGIC: Alert and oriented x3. No focal deficits. - Labs CBC & Chem 7: 02/12/20 06:31 02/12/20 06:31 Labs: Abnormal Lab Results - Last 24 Hours (Table) 02/12/20 02/12/20 Range/Units 06:31 06:31 RBC 3.38 L (3.80-5.40) m/uL Hgb 7.9 L (11.4-16.0) gm/dL Hct 27.1 L (34.0-46.0) % MCH 23.4 L (25.0-35.0) pg MCHC 29.2 L (31.0-37.0) g/dL RDW 24.3 H (11.5-15.5) % BUN 2 L (7-17) mg/dL Glucose 71 L (74-99) mg/dL Total Bilirubin 4.8 H (0.2-1.3) mg/dL AST 42 H (14-36) U/L Total Protein 6.0 L (6.3-8.2) g/dL Albumin 3.1 L (3.5-5.0) g/dL Lipase 427 H (23-300) U/L Microbiology - Last 24 Hours (Table) 02/07/20 15:55 Blood Culture - Preliminary Blood No Growth after 120 hours 02/08/20 11:43 Blood Culture - Preliminary Blood No Growth after 96 hours Assessment and Plan (1) Hematemesis Narrative/Plan: 34-year-old female with multiple medical comorbidities presents to the hospital with symptoms of abdominal pain and hematemesis. Currently being treated for acute pancreatitis with lipase greater than 900 and findings of inflammation of the pancreas on computed tomography scan of the abdomen. Ultrasound with findings of gallbladder wall thickening suspicious for acute acalculous cholecystitis with no evidence of stones or biliary dilation on ultrasound or CT imaging. He not rule out a component of alcoholic hepatitis given typical elevation of AST: ALT. No further episodes of hematemesis. Patient had EGD and colonoscopy in October 2019 for evaluation of anemia with findings of mild gastritis and internal hemorrhoids. Current Visit: Yes Status: Acute Code(s): K92.0 - HEMATEMESIS SNOMED Code(s): 7597669 (2) Alcohol intoxication Current Visit: Yes Status: Acute Code(s): F10.929 - ALCOHOL USE, UNSPECIFIED WITH INTOXICATION, UNSPECIFIED SNOMED Code(s): 71637770 (3) Acute pancreatitis Current Visit: No Status: Acute Code(s): K85.90 - ACUTE PANCREATITIS WITHOUT NECROSIS OR INFECTION, UNSP SNOMED Code(s): 384871759 (4) Hepatitis Current Visit: No Status: Acute Code(s): K75.9 - INFLAMMATORY LIVER DISEASE, UNSPECIFIED SNOMED Code(s): 961361719 (5) Microcytic hypochromic anemia Current Visit: No Status: Acute Priority: High Code(s): D50.9 - IRON DEFICIENCY ANEMIA, UNSPECIFIED SNOMED Code(s): 59229181 Plan: Supportive care Okay for diet as tolerated Continue IV fluid hydration Continue pain control Surgical service following the patient Continue to monitor CBC, BMP, LFTs Extensive discussion with the patient regarding alcohol abstinence No plans for endoscopic evaluation at this time given EGD and colonoscopy in October 2019 Acute viral hepatitis panel negative Continue Protonix twice daily IV iron supplementation ordered If liver enzymes remain elevated may consider MRCP for further evaluation, however no cholelithiasis noted on either ultrasound or computed tomography scan of the abdomen and suspicion is that liver enzymes are elevated in the setting of alcoholic hepatitis Thank you for allowing us to participate in the care of the patient we will continue to follow
[2020-02-13] MEDS: HYDROmorphone 0.5 MG/0.5 ML SYRINGE IVP PRN ×2 (05:20→11:40)
[2020-02-13] MEDS: THIAMINE 100 MG TAB PO SCH (06:37)
[2020-02-13] MEDS: PANTOPRAZOLE 40 MG TABLET PO SCH (06:37)
[2020-02-13] MEDS: SODIUM CHLORIDE 0.9% 1,000 ML IV SCH ×2 (06:58→08:50)
[2020-02-13 08:34] LABS: Anisocytosis Marked; HCT 28.6 % (34.0-46.0); HGB 8.6 gm/dL (11.4-16.0); Hypochromasia Marked; MCH 24.3 pg (25.0-35.0); MCHC 29.9 g/dL (31.0-37.0); MCV 81.5 fL (80.0-100.0); Mean Platelet Volume 8.3; Microcytosis Moderate; Platelet Count 265 k/uL (150-450); Poikilocytosis Marked; RBC 3.51 m/uL (3.80-5.40); WBC 6.7 k/uL (3.8-10.6)
[2020-02-13 08:37] LABS: RDW 25.5 % (11.5-15.5)
[2020-02-13 08:38] VITALS: RESP 16
[2020-02-13] MEDS: diphenhydrAMINE 25 MG CAP PO PRN (08:38)
[2020-02-13] MEDS: LORATADINE 10 MG TAB PO SCH (08:39)
[2020-02-13] MEDS: FUROSEMIDE 80 MG TAB PO SCH (08:39)
[2020-02-13] MEDS: LORazepam 0.5 MG TAB PO PRN (08:39)
[2020-02-13] MEDS: METOPROLOL TARTRATE 50 MG TAB PO SCH (08:39)
[2020-02-13] MEDS: POTASSIUM CHLORIDE ER 20 MEQ TAB.ER PO SCH (08:39)
[2020-02-13] MEDS: DIGOXIN 125 MCG TAB PO SCH (08:39)
[2020-02-13] MEDS: PIPERACILLIN-TAZOBACTAM 3.375 GM in SODIUM CHLORIDE 0.9% 100 ML IVPB SCH (08:39)
[2020-02-13] MEDS: SPIRONOLACTONE 25 MG TAB PO SCH (08:39)
[2020-02-13 08:58] LABS: ALT 22 U/L (4-34); AST 37 U/L (14-36); African American GFR (CKD) >90 (>60 ml/min/1.73 sqM); Albumin 3.5 g/dL (3.5-5.0); Alkaline Phosphatase 101 U/L (38-126); Amylase 50 U/L (30-110); Anion Gap 11 mmol/L; Blood Urea Nitrogen <2 mg/dL (7-17); Calcium 9.5 mg/dL (8.4-10.2); Carbon Dioxide 26 mmol/L (22-30); Chloride 100 mmol/L (98-107); Glucose 112 mg/dL (74-99); Non-African American GFR(CKD) >90 (>60 ml/min/1.73 sqM); Potassium 3.6 mmol/L (3.5-5.1); Sodium 137 mmol/L (137-145); Total Bilirubin 4.2 mg/dL (0.2-1.3); Total Protein 6.5 g/dL (6.3-8.2)
--- NOTE | 2020-02-13 10:58 | P.PN ---
Subjective Progress Note Date: 02/13/20 CHIEF COMPLAINT: Gallbladder disease, pancreatitis HISTORY OF PRESENT ILLNESS: Patient examined at the bedside this morning. Patient denies abdominal pain. Denies nausea or vomiting. Tolerating diet. She is hoping to be discharged home. PHYSICAL EXAM: VITAL SIGNS: Reviewed. GENERAL: Well-developed in no acute distress. HEENT: Extraocular movements grossly intact. Moist buccal mucosa. Head is atraumatic, normocephalic. ABDOMEN: Soft. Nondistended. Nontender with palpation. NEUROLOGIC: Alert and oriented. Cranial nerves II through XII grossly intact. ASSESSMENT: 1. Abdominal pain 2. Acute pancreatitis 3. Chronic cholecystitis 4. Hyperbilirubinemia 5. Acute alcohol intoxication on admission 6. Hematemesis on admission PLAN: Stable for discharge home from a surgical standpoint. Plan is for outpatient cholecystectomy. Patient to follow-up with Dr. Castillo outpatient. Nurse practitioner note has been reviewed by physician. Signing provider agrees with the documented findings, assessment, and plan of care. Objective - Vital Signs Vital signs: Vital Signs Temp 98.2 F 02/13/20 08:38 Pulse 67 02/13/20 08:39 Resp 16 02/13/20 08:39 BP 96/52 02/13/20 08:38 Pulse Ox 95 02/13/20 08:38 Intake & Output 02/12/20 02/13/20 02/13/20 18:59 06:59 18:59 Intake Total 1636 880 360 Output Total 1 Balance 1636 879 360 Weight 62.4 kg 60.6 kg Intake: Intake, IV Titration 800 340 Amount Piperacillin-Tazobactam 3 100 100 .375 gm In Sodium Chloride 0.9% 100 ml @ 25 mls/hr IVPB Q8HR MICHAEL Rx# :[id number] Sodium Chloride 0.9% 1, 600 240 000 ml @ 100 mls/hr IV . Q10H MICHAEL Rx#:[id number] Sodium Ferric Gluconat- 100 Sucrose 125 mg In Sodium Chloride 0.9% 100 ml @ 100 mls/hr IVPB DAILY MICHAEL Rx#:[id number] Oral 836 540 360 Output: Urine 1 Other: Voiding Method Toilet Toilet # Voids 1 # Bowel Movements 1 - Labs CBC & Chem 7: 02/13/20 08:18 02/13/20 08:18 Labs: Abnormal Lab Results - Last 24 Hours (Table) 02/10/20 02/13/20 02/13/20 Range/Units 15:19 08:18 08:18 RBC 3.51 L (3.80-5.40) m/uL Hgb 8.6 L (11.4-16.0) gm/dL Hct 28.6 L (34.0-46.0) % MCH 24.3 L (25.0-35.0) pg MCHC 29.9 L (31.0-37.0) g/dL RDW 25.5 H (11.5-15.5) % BUN <2 L (7-17) mg/dL Glucose 112 H (74-99) mg/dL Total Bilirubin 4.2 H (0.2-1.3) mg/dL AST 37 H (14-36) U/L Lipase 556 H (23-300) U/L Crossmatch See Detail Microbiology - Last 24 Hours (Table) 02/07/20 15:55 Blood Culture - Preliminary Blood No Growth after 120 hours 02/08/20 11:43 Blood Culture - Preliminary Blood No Growth after 96 hours
[2020-02-13 11:39] VITALS: BP 103/50; PULSE 60; TEMP 97.7
--- NOTE | 2020-02-13 14:04 | PN ---
PROGRESS NOTE DATE OF SERVICE: 02/13/2020 REASON FOR FOLLOWUP: Leukocytosis, pancreatitis. INTERVAL HISTORY: The patient is currently afebrile. Patient is breathing comfortably. Denies having any chest pain or any cough. No nausea, no vomiting, no abdominal pain, or any diarrhea. PHYSICAL EXAM: Blood pressure 101/50 with a pulse of 60, temperature 98.6, she is 96% on room air. General description is a middle-aged female, up in the bed in no distress. RESPIRATORY SYSTEM: Unlabored breathing, clear to auscultation anteriorly. HEART: S1, S2. Regular rate and rhythm. ABDOMEN: Soft, no tenderness. LABS: Patient white count normal. Blood culture has been negative. DIAGNOSTIC IMPRESSION AND PLAN: Patient with leukocytosis secondary to underlying pancreatitis and question of cholecystitis. Overall improvement on Zosyn. Finish therapy with oral Augmentin. Prescription has been sent to the pharmacy. Continue supportive care. MMODL / IJN: [id number] /
--- NOTE | 2020-02-13 19:00 | DS ---
DISCHARGE SUMMARY CHIEF COMPLAINT: Abdominal pain. HISTORY OF PRESENT ILLNESS AND PHYSICAL EXAMINATION: Details of this lady's history and physical can be found in the initial workup. LABORATORY STUDIES: While she was in the hospital she had laboratory studies, details of which can be found in the laboratory section of her chart. COURSE IN THE HOSPITAL: After admission she was placed on bedrest, started on intravenous fluids and analgesics for her pancreatitis. Lipase remained fairly high and came down only very slowly. She developed other issues, including a rise in her liver function studies, and she became more lethargic. Her ammonia level remained normal, however. She continued to complain of the abdominal pain as well as back pain, but she slowly began to improve as her liver enzymes and lipase began to come down. However, she continued to be quite anemic without any source of blood loss. She did have to be transfused on two different occasions. Hemoglobin was up to 8.9 and she was eating and doing well, and it was felt that she could safely go home on February 12. She will go home on her usual activity, diet and medication. Her Coumadin will be restarted when she goes home. She will be seen in the office in several days. FINAL DIAGNOSES: 1. Alcoholic pancreatitis. 2. Alcoholism. 3. Alcoholic hepatitis. 4. Anemia. 5. Congenital heart disease. 6. Cholecystitis. OPERATIONS: None. CONSULTATIONS: 1. Gastroenterology. 2. General Surgery. MMODRochelle / CAROLYN: [id number] /
--- NOTE | 2020-02-13 20:11 | P.PN ---
Subjective Progress Note Date: 02/13/20 Principal diagnosis: Pancreatitis, iron deficiency anemia, hematemesis Patient seen sitting bedside. No abdominal pain or other acute complaints. Patient is ready for discharge today Objective - Vital Signs Vital signs: Vital Signs Temp 97.7 F 02/13/20 11:39 Pulse 60 02/13/20 11:39 Resp 16 02/13/20 11:39 BP 103/50 02/13/20 11:39 Pulse Ox 96 02/13/20 11:39 Intake & Output 02/12/20 02/13/20 02/13/20 18:59 06:59 18:59 Intake Total 1636 880 360 Output Total 1 Balance 1636 879 360 Weight 62.4 kg 60.6 kg Intake: Intake, IV Titration 800 340 Amount Piperacillin-Tazobactam 3 100 100 .375 gm In Sodium Chloride 0.9% 100 ml @ 25 mls/hr IVPB Q8HR MICHAEL Rx# :[id number] Sodium Chloride 0.9% 1, 600 240 000 ml @ 100 mls/hr IV . Q10H MICHAEL Rx#:[id number] Sodium Ferric Gluconat- 100 Sucrose 125 mg In Sodium Chloride 0.9% 100 ml @ 100 mls/hr IVPB DAILY MICHAEL Rx#:[id number] Oral 836 540 360 Output: Urine 1 Other: Voiding Method Toilet Toilet # Voids 1 # Bowel Movements 1 - Exam On physical examination, patient appears comfortable in no apparent distress. HEAD: Normocephalic, atraumatic. EYES: No scleral icterus. No conjunctival injection. MOUTH: No lesions, tongue midline. NECK: Trachea midline, no gross abnormalities. ABDOMEN: Soft, mildly tender to palpation. Bowel sounds are positive. No organomegaly. No guarding or rigidity. EXTREMITIES: No pedal edema. SKIN: No rashes, no jaundice. NEUROLOGIC: Alert and oriented x3. No focal deficits. - Labs CBC & Chem 7: 02/13/20 08:18 02/13/20 08:18 Labs: Abnormal Lab Results - Last 24 Hours (Table) 02/10/20 02/13/20 02/13/20 Range/Units 15:19 08:18 08:18 RBC 3.51 L (3.80-5.40) m/uL Hgb 8.6 L (11.4-16.0) gm/dL Hct 28.6 L (34.0-46.0) % MCH 24.3 L (25.0-35.0) pg MCHC 29.9 L (31.0-37.0) g/dL RDW 25.5 H (11.5-15.5) % BUN <2 L (7-17) mg/dL Glucose 112 H (74-99) mg/dL Total Bilirubin 4.2 H (0.2-1.3) mg/dL AST 37 H (14-36) U/L Lipase 556 H (23-300) U/L Crossmatch See Detail Microbiology - Last 24 Hours (Table) 02/07/20 15:55 Blood Culture - Preliminary Blood No Growth after 120 hours 02/08/20 11:43 Blood Culture - Preliminary Blood No Growth after 96 hours Assessment and Plan (1) Hematemesis Narrative/Plan: 34-year-old female with multiple medical comorbidities presents to the hospital with symptoms of abdominal pain and hematemesis. Currently being treated for acute pancreatitis with lipase greater than 900 and findings of inflammation of the pancreas on computed tomography scan of the abdomen. Ultrasound with findings of gallbladder wall thickening suspicious for acute acalculous cholecystitis with no evidence of stones or biliary dilation on ultrasound or CT imaging. He not rule out a component of alcoholic hepatitis given typical elevation of AST: ALT. No further episodes of hematemesis. Patient had EGD and colonoscopy in October 2019 for evaluation of anemia with findings of mild gastritis and internal hemorrhoids. Status: Acute Code(s): K92.0 - HEMATEMESIS SNOMED Code(s): 1299554 (2) Alcohol intoxication Status: Acute Code(s): F10.929 - ALCOHOL USE, UNSPECIFIED WITH INTOXICATION, UNSPECIFIED SNOMED Code(s): 43553950 (3) Acute pancreatitis Status: Acute Code(s): K85.90 - ACUTE PANCREATITIS WITHOUT NECROSIS OR INFECTION, UNSP SNOMED Code(s): 853138015 (4) Hepatitis Status: Acute Code(s): K75.9 - INFLAMMATORY LIVER DISEASE, UNSPECIFIED SNOMED Code(s): 954372177 (5) Microcytic hypochromic anemia Status: Acute Priority: High Code(s): D50.9 - IRON DEFICIENCY ANEMIA, UNSPECIFIED SNOMED Code(s): 32978425 Plan: Supportive care Okay for diet as tolerated Continue IV fluid hydration Continue pain control Surgical service following the patient Continue to monitor CBC, BMP, LFTs Extensive discussion with the patient regarding alcohol abstinence No plans for endoscopic evaluation at this time given EGD and colonoscopy in October 2019 Acute viral hepatitis panel negative Continue Protonix twice daily Thank you for allowing us to participate in the care of the patient we will continue to follow
--- NOTE | 2020-02-14 07:42 | CDI ---
Documentation Clarification Form Date: 02/14/20 From: Evi Mayorga Phone: If you have a question about this query, please contact Kandy Dominguez, Solar Panel Installation Supervisor at [phone] between 8am and 5pm. Admit Date: 02/03/20 Discharge Date: 02/13/20 Patient Name: LORRAINE BELTRAN Visit Number: [id number] ATTENTION: The Clinical Documentation Specialists (CDI) and [facility] Coding Staff appreciate your assistance in clarifying documentation. Please respond to the clarification below the line at the bottom and electronically sign. The CDI & [facility] Coding staff will review the response and follow-up if needed. Please note: Queries are made part of the Legal Health Record. If you have any questions, please contact the author of this message via ITS. Dear Dr. 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 VS/Pulse OX: 122/88 119 97.9 18 100% 02/23/19 Echocardiogram Results: Overall left ventricular systolic function is normal with, an EF 55-60%. There is paradoxical/dysynergic septal motion consistent with right ventricular volume overload and /or elevated right ventricular end diastolic pressure. Chest X Ray: Worsening right perihilar infiltrate. BNP: none Treatment: 02/02 Lasix 80mg po daily, Aldactone 25mg po daily, Lopressor 100mg po bid, In your professional opinion, can you please clarify the acuity and type of CHF if known? Chronic diastolic heart failure Acute on chronic diastolic heart failure Chronic systolic heart failure Acute on chronic systolic heart failure Unable to Determine Other, please specify MTDD
[2020-02-14] MEDS ORDERED: IRON POLYSACCHARIDES COMPLEX 150 MG CAP PO SCH (12:00)
--- NOTE | 2020-02-23 01:16 | MISC ---
MISCELLANOUS REPORT QUERY: Congestive heart failure, chronic diastolic. MMODL / IJN: [id number] /
== END 2020-02-13 13:28 | disposition home health service (06) | DRG 439 ==
LOC: EC 21:01 → 4SSUR 02-03 02:12 → 3SCARD 02-03 06:08
PROVIDERS: ADMIT Family Medicine; ATTEND Family Medicine
PROC: 30233N1 Transfusion of Nonautologous Red Blood Cells into Peripheral Vein, Percutaneous Approach (ICD-10-PCS; principal; 2020-02-04)
DX: K85.20 Alcohol induced acute pancreatitis without necrosis or infection (principal); K92.0 Hematemesis; D61.9 Aplastic anemia, unspecified; I27.20 Pulmonary hypertension, unspecified; F10.229 Alcohol dependence with intoxication, unspecified; D50.9 Iron deficiency anemia, unspecified; K81.1 Chronic cholecystitis; E87.6 Hypokalemia; I11.0 Hypertensive heart disease with heart failure; I50.9 Heart failure, unspecified; I48.0 Paroxysmal atrial fibrillation; K70.10 Alcoholic hepatitis without ascites; F32.9 Major depressive disorder, single episode, unspecified; Y90.8 Blood alcohol level of 240 mg/100 ml or more; Z20.828 Contact with and (suspected) exposure to other viral communicable diseases; I44.0 Atrioventricular block, first degree; I45.10 Unspecified right bundle-branch block; I25.10 Atherosclerotic heart disease of native coronary artery without angina pectoris; F41.9 Anxiety disorder, unspecified; K64.8 Other hemorrhoids; K29.70 Gastritis, unspecified, without bleeding; Z91.19 Patient's noncompliance with other medical treatment and regimen; Z79.01 Long term (current) use of anticoagulants; Z79.899 Other long term (current) drug therapy; Z87.891 Personal history of nicotine dependence; Z87.74 Personal history of (corrected) congenital malformations of heart and circulatory system; Z86.19 Personal history of other infectious and parasitic diseases; Z91.041 Radiographic dye allergy status
CPT/HCPCS: 36415; 71046; 74018; 74176; 76705; 80048; 80053; 80074; 80320; 81001; 82140; 82150; 82247; 82728; 83036; 83540; 83550; 83605; 83690; 83735; 85025; 85027; 85610; 85730; 86140; 86850; 86900; 86901; 86920; 87040; 87635; 93005; 93306; 96361; 96372; 96374; 96375; 96376; 99285

== ENCOUNTER 2020-03-02 15:49 | Inpatient (IN) | payer OTHER ==
[2020-03-02] MEDS ORDERED: LORazepam 2 MG/ML INJ IV STA (16:04)
[2020-03-02] MEDS ORDERED: DILTIAZEM DRIP BOLUS FROM BAG 1 MG SOLN IV ONE (16:04)
[2020-03-02] MEDS ORDERED: SODIUM CHLORIDE 0.9% 1,000 ML IV STA ×2 (16:04→18:06)
--- NOTE | 2020-03-02 16:04 | ED ---
Arrhythmia/Palpitations HPI - General Chief Complaint: Arrhythmia/Palpitations Stated Complaint: AFIB Time Seen by Provider: 03/02/20 15:58 Source: patient, RN notes reviewed, old records reviewed Mode of arrival: wheelchair Limitations: no limitations - History of Present Illness Initial Comments: This is a 32-year-old female DF for evaluation severe anxiety palpitations heart racing. Feeling scared. History of a fibrillation long cardiac history. 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 MD Complaint: rapid heart beat, "heart racing", palpitations, atrial fibril lation -: hour(s) Context: awoke with symptoms Arrhythmia History: atrial fibrillation Associated Symptoms: shortness of breath - Related Data Home Medications Medication Instructions Recorded Confirmed Digoxin [Digitek] 125 mcg PO DAILY 12/19/17 02/03/20 Spironolactone [Aldactone] 25 mg PO DAILY 12/19/17 02/03/20 Furosemide [Lasix] 80 mg PO DAILY 03/19/19 02/03/20 Potassium Chloride [Klor-Con 20] 40 meq PO BID 03/19/19 02/03/20 LORazepam [Ativan] 0.5 mg PO TID PRN 03/31/19 02/03/20 Loratadine [Claritin] 10 mg PO DAILY 11/04/19 02/03/20 Warfarin Sodium [Coumadin] 4 mg PO HS 02/03/20 02/03/20 Previous Rx's Medication Instructions Recorded Pantoprazole [Protonix] 40 mg PO AC-BID #60 tablet. 11/10/19 Amoxic-Pot Clav 875-125Mg 1 tab PO Q12HR #10 tab 02/13/20 [Augmentin 875-125] Iron Polysaccharides Complex 300 mg PO DAILY #90 cap 02/13/20 [Niferex-150] Metoprolol Tartrate [Lopressor] 100 mg PO BID #60 tab 02/13/20 Thiamine [Vitamin B-1] 100 mg PO BID-W/MEALS #100 tab 02/13/20 Allergies Allergy/AdvReac Type Severity Reaction Status Date / Time Iodinated Contrast Media AdvReac TWITCHING Verified 02/03/20 12:03 [Iodinated Contrast- Oral and IV Dye] Review of Systems ROS Statement: Those systems with pertinent positive or pertinent negative responses have been documented in the HPI. ROS Other: All systems not noted in ROS Statement are negative. 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 History of Any Multi-Drug Resistant Organisms: ESBL Date of last positivie culture/infection: 02/25/17 ESBL-Klebsiella MDRO Source:: Urine Past Surgical History: No Surgical Hx Reported Additional Past Surgical History / Comment(s): open heart surg for transposition of great arteries, CARDIOVERTED FOR A- FIB twice Past Anesthesia/Blood Transfusion Reactions: No Reported Reaction Past Psychological History: Anxiety Smoking Status: Never smoker Past Alcohol Use History: None Reported Past Drug Use History: None Reported - Past Family History Mother Family Medical History: No Reported History Additional Family Medical History / Comment(s): Mother is healthy Father Family Medical History: No Reported History Additional Family Medical History / Comment(s): Father is healthy General Exam Limitations: no limitations General appearance: alert, in no apparent distress Head exam: Present: atraumatic, normocephalic, normal inspection Eye exam: Present: normal appearance, PERRL, EOMI. Absent: scleral icterus, conjunctival injection, periorbital swelling ENT exam: Present: normal exam, mucous membranes moist Neck exam: Present: normal inspection. Absent: tenderness, meningismus, lymp hadenopathy Respiratory exam: Present: normal lung sounds bilaterally. Absent: respiratory distress, wheezes, rales, rhonchi, stridor Cardiovascular Exam: Present: tachycardia, irregular rhythm, normal heart sounds. Absent: systolic murmur, diastolic murmur, rubs, gallop, clicks GI/Abdominal exam: Present: soft, normal bowel sounds. Absent: distended, tenderness, guarding, rebound, rigid Extremities exam: Present: normal inspection, full ROM, normal capillary refill. Absent: tenderness, pedal edema, joint swelling, calf tenderness Back exam: Present: normal inspection Neurological exam: Present: alert, oriented X3, CN II-XII intact Psychiatric exam: Present: normal affect, normal mood Skin exam: Present: warm, dry, intact, normal color. Absent: rash Course Vital Signs 03/02/20 03/02/20 15:50 15:55 Temperature 98.2 F Pulse Rate 118 H Respiratory 26 H 20 Rate Blood Pressure 140/88 O2 Sat by Pulse 100 Oximetry - Reevaluation(s) Reevaluation #1: 03/02/20 18:08 Medical records reviewed Reevaluation #2: 03/02/20 18:08 Patient still with severe anxiety shortness of breath crying - Consultations Consultation #1: Spoke with Dr. Wilson agreeable for admission EKG Findings - EKG Comments: EKG Findings:: EKG shows a wide QRS complex of rate of 110 QRS 160 QTC 573 Medical Decision Making - Medical Decision Making 34 female presents today patient presents for anxiety elevated heart rate alcohol intoxication left foot abnormalities A. fib with RVR with history of atrial fibrillation with RVR - Lab Data Result diagrams: 03/02/20 16:15 03/02/20 16:15 Lab Results 03/02/20 03/02/20 03/02/20 Range/Units 16:15 16:15 16:15 WBC 5.4 (3.8-10.6) k/uL RBC 4.33 (3.80-5.40) m/uL Hgb 10.7 L (11.4-16.0) gm/dL Hct 35.5 (34.0-46.0) % MCV 82.1 (80.0-100.0) fL MCH 24.7 L (25.0-35.0) pg MCHC 30.1 L (31.0-37.0) g/dL RDW 24.3 H (11.5-15.5) % Plt Count 343 (150-450) k/uL Neutrophils % 65 % Lymphocytes % 28 % Monocytes % 4 % Eosinophils % 0 % Basophils % 2 % Neutrophils # 3.5 (1.3-7.7) k/uL Lymphocytes # 1.5 (1.0-4.8) k/uL Monocytes # 0.2 (0-1.0) k/uL Eosinophils # 0.0 (0-0.7) k/uL Basophils # 0.1 (0-0.2) k/uL Hypochromasia Moderate Poikilocytosis Slight Anisocytosis Marked Microcytosis Moderate PT 28.1 H (9.0-12.0) sec INR 2.9 H (<1.2) APTT 33.1 H (22.0-30.0) sec D-Dimer 0.38 (<0.60) mg/L FEU Sodium 144 (137-145) mmol/L Potassium 3.2 L (3.5-5.1) mmol/L Chloride 103 (98-107) mmol/L Carbon Dioxide 23 (22-30) mmol/L Anion Gap 18 mmol/L BUN 7 (7-17) mg/dL Creatinine 0.42 L (0.52-1.04) mg/dL Est GFR (CKD-EPI)AfAm >90 (>60 ml/min/1.73 sqM) Est GFR (CKD-EPI)NonAf >90 (>60 ml/min/1.73 sqM) Glucose 96 (74-99) mg/dL Calcium 8.5 (8.4-10.2) mg/dL Phosphorus 3.7 (2.5-4.5) mg/dL Magnesium 1.4 L (1.6-2.3) mg/dL Total Bilirubin 1.6 H (0.2-1.3) mg/dL AST 77 H (14-36) U/L ALT 31 (4-34) U/L Alkaline Phosphatase 172 H (38-126) U/L Creatine Kinase 46 (30-135) U/L Troponin I (0.000-0.034) ng/mL NT-Pro-B Natriuret Pep pg/mL Total Protein 7.0 (6.3-8.2) g/dL Albumin 4.0 (3.5-5.0) g/dL TSH 1.470 (0.465-4.680) mIU/L Digoxin ng/mL Serum Alcohol mg/dL 03/02/20 03/02/20 03/02/20 Range/Units 16:15 16:15 16:15 WBC (3.8-10.6) k/uL RBC (3.80-5.40) m/uL Hgb (11.4-16.0) gm/dL Hct (34.0-46.0) % MCV (80.0-100.0) fL MCH (25.0-35.0) pg MCHC (31.0-37.0) g/dL RDW (11.5-15.5) % Plt Count (150-450) k/uL Neutrophils % % Lymphocytes % % Monocytes % % Eosinophils % % Basophils % % Neutrophils # (1.3-7.7) k/uL Lymphocytes # (1.0-4.8) k/uL Monocytes # (0-1.0) k/uL Eosinophils # (0-0.7) k/uL Basophils # (0-0.2) k/uL Hypochromasia Poikilocytosis Anisocytosis Microcytosis PT (9.0-12.0) sec INR (<1.2) APTT (22.0-30.0) sec D-Dimer (<0.60) mg/L FEU Sodium (137-145) mmol/L Potassium (3.5-5.1) mmol/L Chloride (98-107) mmol/L Carbon Dioxide (22-30) mmol/L Anion Gap mmol/L BUN (7-17) mg/dL Creatinine (0.52-1.04) mg/dL Est GFR (CKD-EPI)AfAm (>60 ml/min/1.73 sqM) Est GFR (CKD-EPI)NonAf (>60 ml/min/1.73 sqM) Glucose (74-99) mg/dL Calcium (8.4-10.2) mg/dL Phosphorus (2.5-4.5) mg/dL Magnesium (1.6-2.3) mg/dL Total Bilirubin (0.2-1.3) mg/dL AST (14-36) U/L ALT (4-34) U/L Alkaline Phosphatase (38-126) U/L Creatine Kinase (30-135) U/L Troponin I 0.036 H* (0.000-0.034) ng/mL NT-Pro-B Natriuret Pep 813 pg/mL Total Protein (6.3-8.2) g/dL Albumin (3.5-5.0) g/dL TSH (0.465-4.680) mIU/L Digoxin ng/mL Serum Alcohol 279 H* mg/dL 03/02/20 Range/Units 16:15 WBC (3.8-10.6) k/uL RBC (3.80-5.40) m/uL Hgb (11.4-16.0) gm/dL Hct (34.0-46.0) % MCV (80.0-100.0) fL MCH (25.0-35.0) pg MCHC (31.0-37.0) g/dL RDW (11.5-15.5) % Plt Count (150-450) k/uL Neutrophils % % Lymphocytes % % Monocytes % % Eosinophils % % Basophils % % Neutrophils # (1.3-7.7) k/uL Lymphocytes # (1.0-4.8) k/uL Monocytes # (0-1.0) k/uL Eosinophils # (0-0.7) k/uL Basophils # (0-0.2) k/uL Hypochromasia Poikilocytosis Anisocytosis Microcytosis PT (9.0-12.0) sec INR (<1.2) APTT (22.0-30.0) sec D-Dimer (<0.60) mg/L FEU Sodium (137-145) mmol/L Potassium (3.5-5.1) mmol/L Chloride (98-107) mmol/L Carbon Dioxide (22-30) mmol/L Anion Gap mmol/L BUN (7-17) mg/dL Creatinine (0.52-1.04) mg/dL Est GFR (CKD-EPI)AfAm (>60 ml/min/1.73 sqM) Est GFR (CKD-EPI)NonAf (>60 ml/min/1.73 sqM) Glucose (74-99) mg/dL Calcium (8.4-10.2) mg/dL Phosphorus (2.5-4.5) mg/dL Magnesium (1.6-2.3) mg/dL Total Bilirubin (0.2-1.3) mg/dL AST (14-36) U/L ALT (4-34) U/L Alkaline Phosphatase (38-126) U/L Creatine Kinase (30-135) U/L Troponin I (0.000-0.034) ng/mL NT-Pro-B Natriuret Pep pg/mL Total Protein (6.3-8.2) g/dL Albumin (3.5-5.0) g/dL TSH (0.465-4.680) mIU/L Digoxin 0.4 ng/mL Serum Alcohol mg/dL Critical Care Time Critical Care Time: Yes Total Critical Care Time: 31 Disposition Clinical Impression: Atrial fibrillation, Tachycardia, Palpitations, Elevated troponin, Anxiety Disposition: ADMITTED IP TO THIS HOSP Condition: Serious Is patient prescribed a controlled substance at d/c from ED?: No Referrals: Rodney Wilson MD [Primary Care Provider] - 1-2 days
[2020-03-02] MEDS ORDERED: DILTIAZEM 125 MG in SODIUM CHLORIDE 0.9% 100 ML IV SCH (16:15)
[2020-03-02 16:28] LABS: Anisocytosis Marked; Basophils # (A) 0.1 k/uL (0-0.2); Basophils % (A) 2 %; Eosinophils % (A) 0 %; HCT 35.5 % (34.0-46.0); HGB 10.7 gm/dL (11.4-16.0); Hypochromasia Moderate; Lymphocytes # (A) 1.5 k/uL (1.0-4.8); Lymphocytes % (A) 28 %; MCH 24.7 pg (25.0-35.0); MCHC 30.1 g/dL (31.0-37.0); MCV 82.1 fL (80.0-100.0); Mean Platelet Volume 7.8; Microcytosis Moderate; Monocytes # (A) 0.2 k/uL (0-1.0); Monocytes % (A) 4 %; Neutrophils # (A) 3.5 k/uL (1.3-7.7); Neutrophils % (A) 65 %; Platelet Count 343 k/uL (150-450); Poikilocytosis Slight; RBC 4.33 m/uL (3.80-5.40); RDW 24.3 % (11.5-15.5); WBC 5.4 k/uL (3.8-10.6)
[2020-03-02 16:42] LABS: ALT 31 U/L (4-34); AST 77 U/L (14-36); African American GFR (CKD) >90 (>60 ml/min/1.73 sqM); Alkaline Phosphatase 172 U/L (38-126); Anion Gap 18 mmol/L; Blood Urea Nitrogen 7 mg/dL (7-17); Calcium 8.5 mg/dL (8.4-10.2); Carbon Dioxide 23 mmol/L (22-30); Chloride 103 mmol/L (98-107); Creatine Kinase 46 U/L (30-135); Glucose 96 mg/dL (74-99); Magnesium 1.4 mg/dL (1.6-2.3); Non-African American GFR(CKD) >90 (>60 ml/min/1.73 sqM); Phosphorus 3.7 mg/dL (2.5-4.5); Potassium 3.2 mmol/L (3.5-5.1); Sodium 144 mmol/L (137-145); Total Bilirubin 1.6 mg/dL (0.2-1.3)
[2020-03-02 16:43] LABS: D-Dimer 0.38 mg/L FEU (<0.60); INR 2.9 (<1.2); Partial Thromboplastin Time 33.1 sec (22.0-30.0); Prothrombin Time 28.1 sec (9.0-12.0)
[2020-03-02] MEDS ORDERED: POTASSIUM BICARBONATE/CIT AC 20 MEQ TABLET.EFF PO ONE (16:51)
[2020-03-02] MEDS: MAGNESIUM SULFATE-D5W PMX 1 GM in DEXTROSE/WATER 1 100ML.BAG IVPB SCH ×2 (17:49→18:51)
[2020-03-02] MEDS ORDERED: SODIUM CHLORIDE 0.9% 500 ML 500 ML IV STA (18:06)
[2020-03-02] MEDS ORDERED: ASPIRIN 81 MG PO STA (18:06)
[2020-03-02] MEDS ORDERED: THIAMINE 100 MG/ML 2 ML VIAL IM STA (18:06)
[2020-03-02] MEDS ORDERED: NITROGLYCERIN SL TABS 0.4 MG TAB SUBLINGUAL PRN (18:06)
[2020-03-02] MEDS ORDERED: LORazepam 2 MG/ML INJ IV PRN ×2 (18:06)
[2020-03-02] MEDS ORDERED: HYDROmorphone 1 MG/ML 1 ML SYRINGE IVP STA (18:06)
[2020-03-02] MEDS: LORazepam 2 MG/ML INJ IV PRN ×3 (19:43→23:40)
[2020-03-02] MEDS ORDERED: METOPROLOL TARTRATE 25 MG TAB PO SCH (21:00)
[2020-03-02] MEDS: POTASSIUM CHLORIDE ER 20 MEQ TAB.ER PO SCH (21:34)
[2020-03-02] MEDS: HYDROmorphone 1 MG/ML 1 ML SYRINGE IVP PRN (21:41)
[2020-03-02] MEDS: PANTOPRAZOLE 40 MG TABLET PO SCH (21:41)
[2020-03-02] MEDS: WARFARIN 2 MG TAB PO SCH (21:43)
[2020-03-03] MEDS: LORazepam 2 MG/ML INJ IV PRN ×6 (01:27→20:09)
[2020-03-03] MEDS: HYDROmorphone 1 MG/ML 1 ML SYRINGE IVP PRN ×5 (01:27→22:41)
[2020-03-03 04:49] LABS: INR 2.4 (<1.2); Prothrombin Time 23.4 sec (9.0-12.0)
[2020-03-03] MEDS: PANTOPRAZOLE 40 MG TABLET PO SCH ×2 (05:43→15:37)
[2020-03-03] MEDS: THIAMINE 100 MG TAB PO SCH ×2 (05:43→15:37)
[2020-03-03 05:57] LABS: Cholesterol 151 mg/dL (<200); HDL Cholesterol 43 mg/dL (40-60); LDL Cholesterol,Calculated 83 mg/dL (0-99); Triglycerides 127 mg/dL (<150)
[2020-03-03 07:54] LABS: African American GFR (CKD) >90 (>60 ml/min/1.73 sqM); Anion Gap 10 mmol/L; Blood Urea Nitrogen 6 mg/dL (7-17); Calcium 8.3 mg/dL (8.4-10.2); Carbon Dioxide 25 mmol/L (22-30); Chloride 102 mmol/L (98-107); Glucose 100 mg/dL (74-99); Magnesium 1.9 mg/dL (1.6-2.3); Non-African American GFR(CKD) >90 (>60 ml/min/1.73 sqM); Potassium 3.5 mmol/L (3.5-5.1); Sodium 137 mmol/L (137-145)
[2020-03-03] MEDS ORDERED: ASPIRIN 325 MG TAB PO SCH (09:00)
[2020-03-03] MEDS ORDERED: METOPROLOL TARTRATE 50 MG TAB PO SCH (09:00)
[2020-03-03] MEDS: SPIRONOLACTONE 25 MG TAB PO SCH (09:01)
[2020-03-03] MEDS: FUROSEMIDE 40 MG TAB PO SCH (09:01)
[2020-03-03] MEDS: LORATADINE 10 MG TAB PO SCH (09:01)
[2020-03-03] MEDS: METOPROLOL TARTRATE 50 MG TAB PO SCH ×2 (09:01→20:09)
[2020-03-03] MEDS: MULTIVITAMINS, THERA 1 EACH TAB PO SCH (09:02)
[2020-03-03] MEDS: DIGOXIN 125 MCG TAB PO SCH (09:02)
[2020-03-03] MEDS: POTASSIUM CHLORIDE ER 20 MEQ TAB.ER PO SCH ×2 (09:02→20:09)
[2020-03-03] MEDS: WARFARIN 2 MG TAB PO SCH (17:54)
[2020-03-04] MEDS: HYDROmorphone 1 MG/ML 1 ML SYRINGE IVP PRN ×4 (02:23→19:48)
--- NOTE | 2020-03-04 02:32 | PN ---
PROGRESS NOTE DATE OF SERVICE: 03/03/2020 CHIEF COMPLAINT: Acute alcohol intoxication, atrial fibrillation, impending DTs. HISTORY OF PRESENT ILLNESS: This lady remains somewhat lethargic. She has converted to sinus rhythm and Cardizem has been stopped. She is back on her beta carina. REVIEW OF SYSTEMS: She denies any diplopia, blackouts, trembling, abdominal pain, etc. PHYSICAL EXAMINATION: Head, ears, eyes, nose, and mouth are normal. Neck veins are not distended. Chest is clear. Cardiac exam demonstrates what sounds like sinus rhythm with her usual murmur. Abdomen is soft and nontender. Bowel sounds present. Extremities are normal. IMPRESSION: 1. Acute alcohol intoxication. 2. Chronic alcoholism. 3. Atrial fibrillation with rapid ventricular response. 4. 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 5. Recent history of pancreatitis. PLAN: 1. Resume her usual medication. 2. Continue her on CIWA protocol and watch for DTs or seizures. 3. Refer to Cardiology for evaluation. She has 3 elevated troponins. MMODL / IJN: [id number] /
--- NOTE | 2020-03-04 02:32 | HP ---
HISTORY AND PHYSICAL CHIEF COMPLAINT: Acute alcohol intoxication, atrial fibrillation and congenital heart disease. HISTORY OF PRESENT ILLNESS: This is another recent admission for this 34-year-old white female. She has congenital heart disease, which was transposition of the great vessels for which she received surgery as a youngster. Unfortunately, she is very noncompliant. It turns out she is an alcoholic, drinks heavily most of the time and does not take her medications. She was just in the hospital for pancreatitis, which was resolving. She does not keep her appointments. She does not follow up with evaluation of her Coumadin dosages. She came into the emergency room acutely intoxicated and in atrial fibrillation with RVR. There is no apparent history of seizure, chest pain, shortness of breath, orthopnea, etc. REVIEW OF SYSTEMS: Review of systems was otherwise unremarkable. She was not complaining of any abdominal pain or vomiting. She was lethargic. Past medical history, family history, personal and social histories are all unchanged from her recent admitting and discharge summaries, but it is not known what medicine she may be . She has not been on beta blockers over the last few days. She had said several days ago that she would come into the office, but never did. PHYSICAL EXAMINATION: Blood pressure is 142/90 with a pulse of 120 and irregularly, irregular. Respirations were 40 and she is afebrile. GENERAL: She appeared to be intoxicated. Skin was dry. Head, ears, eyes, nose, mouth, and throat were normal. There was no icterus. Chest was clear to auscultation. Cardiac exam demonstrated her usual murmur with tachycardia. Abdomen is soft and nontender. Extremities are normal. Neurologically, she is intact. She is admitted to the hospital with diagnoses: 1. Acute alcohol intoxication. 2. Atrial fibrillation with rapid ventricular response. 3. 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 4. Recent episode of pancreatitis. 5. Alcoholism. PLAN: 1. Bed rest. 2. IV fluids. 3. Cardizem drip. 4. Resume her usual medications. 5. Cardiology consult. 6. [facility] protocol. MMODL / IJN: [id number] /
[2020-03-04] MEDS: LORazepam 2 MG/ML INJ IV PRN ×4 (04:59→22:00)
[2020-03-04] MEDS: PANTOPRAZOLE 40 MG TABLET PO SCH ×2 (06:26→17:40)
[2020-03-04] MEDS: THIAMINE 100 MG TAB PO SCH ×2 (06:26→17:40)
[2020-03-04 07:41] LABS: Anisocytosis Moderate; Basophils # (A) 0.1 k/uL (0-0.2); Basophils % (A) 1 %; Eosinophils # (A) 0.2 k/uL (0-0.7); Eosinophils % (A) 2 %; HCT 31.8 % (34.0-46.0); HGB 9.5 gm/dL (11.4-16.0); Hypochromasia Marked; Lymphocytes # (A) 1.1 k/uL (1.0-4.8); Lymphocytes % (A) 12 %; MCH 25.7 pg (25.0-35.0); MCHC 29.8 g/dL (31.0-37.0); MCV 86.2 fL (80.0-100.0); Mean Platelet Volume 8.4; Microcytosis Moderate; Monocytes # (A) 0.3 k/uL (0-1.0); Monocytes % (A) 3 %; Neutrophils # (A) 7.8 k/uL (1.3-7.7); Neutrophils % (A) 81 %; Platelet Count 283 k/uL (150-450); RBC 3.68 m/uL (3.80-5.40); RDW 23.8 % (11.5-15.5); WBC 9.7 k/uL (3.8-10.6)
[2020-03-04 07:44] LABS: ALT 28 U/L (4-34); AST 73 U/L (14-36); African American GFR (CKD) >90 (>60 ml/min/1.73 sqM); Albumin 3.4 g/dL (3.5-5.0); Alkaline Phosphatase 160 U/L (38-126); Anion Gap 8 mmol/L; Blood Urea Nitrogen 11 mg/dL (7-17); Calcium 8.7 mg/dL (8.4-10.2); Carbon Dioxide 26 mmol/L (22-30); Chloride 102 mmol/L (98-107); Glucose 78 mg/dL (74-99); Non-African American GFR(CKD) >90 (>60 ml/min/1.73 sqM); Potassium 4.5 mmol/L (3.5-5.1); Sodium 136 mmol/L (137-145); Total Bilirubin 4.2 mg/dL (0.2-1.3); Total Protein 6.4 g/dL (6.3-8.2)
[2020-03-04] MEDS: DIGOXIN 125 MCG TAB PO SCH (08:41)
[2020-03-04] MEDS: FUROSEMIDE 40 MG TAB PO SCH (08:41)
[2020-03-04] MEDS: METOPROLOL TARTRATE 50 MG TAB PO SCH ×2 (08:41→19:47)
[2020-03-04] MEDS: LORATADINE 10 MG TAB PO SCH (08:41)
[2020-03-04] MEDS: SPIRONOLACTONE 25 MG TAB PO SCH (08:42)
[2020-03-04] MEDS: MULTIVITAMINS, THERA 1 EACH TAB PO SCH (08:42)
[2020-03-04] MEDS: POTASSIUM CHLORIDE ER 20 MEQ TAB.ER PO SCH ×2 (08:42→19:47)
--- NOTE | 2020-03-04 10:37 | CONS ---
CONSULTATION Mrs Wilcox is a 34-year-old female with known history of congenital heart disease status post surgical repair at the age of 3 months for transposition of the great vessels, has been followed at [facility], history of paroxysmal fibrillation, chronic alcohol use, who presented with symptoms of palpitation. She was in the hospital recently with symptoms of GI bleeding and pancreatitis. Unfortunately, she continues to drink alcohol on a daily basis and has not been very compliant with her medication or followup. She is feeling well this morning. She denies any dizziness or palpitation. This morning she was feeling palpitation, some heaviness earlier. She denies any PND, orthopnea, or change in her breathing. She denies any peripheral edema. During her most recent admission last months she underwent an echocardiogram that revealed an ejection fraction of 45% to 50%. with severely dilated right ventricle with mild mitral and moderate severe tricuspid regurgitation and right- sided pressure of 60 mmHg. MEDICATIONS: At home included Lasix 80 mg daily, Coumadin, spironolactone 25 mg daily, digoxin 0.125 mg daily, metoprolol tartrate 200 mg daily, Protonix, Ativan, Claritin, and potassium. The patient apparently was not very compliant with her medication on presentation. REVIEW OF SYSTEMS: RESPIRATORY SYSTEM: She has no recent wheezing or cough. No history of documented obstructive lung disease. GI SYSTEM: She had recent pancreatitis and GI bleeding. SYSTEM: No dysuria or hematuria. NERVOUS SYSTEM: No stroke or seizure. SOCIAL HISTORY: She consumes alcohol on a regular basis. PHYSICAL EXAMINATION: She is a 34-year-old female, alert, in no apparent distress. Blood pressure 106/60 with a heart rate in the 80s. HEAD: Normocephalic. EYES: Sclerae nonicteric. NECK: No bruit. LUNGS: Clear to auscultation. HEART: Regular rate and rhythm, S1, S2 with a systolic murmur heard at the left lower sternal border with no diastolic murmur, no rub. ABDOMEN: Soft, nontender. Positive bowel sounds, no organomegaly. EXTREMITIES: No edema. LAB DATA: Revealed a hemoglobin of 9.5, BUN and creatinine of 11 and 0.73. Troponin of 0.036, 0.044 and 0.047. In the past, patient had episode with mild elevation of her troponin as well. Cholesterol of 151. LDL of 83. Her lipase is normal. Her hemoglobin during previous admission was down to 5.4. Her EKG shows right bundle branch block, left axis deviation, irregular rhythm, could be sinus mechanism or junctional rhythm. On the monitor, she is in sinus mechanism at this time. IMPRESSION: 1. Episode of palpitation, could be an episode of paroxysmal fibrillation. Patient is in sinus mechanism at this time. She has a history of paroxysmal fibrillation, has been anticoagulated in the past. 2. History of transposition of the great vessels, status post surgical repair. 3. History of right-sided enlargement with pulmonary hypertension. 4. History of chronic tobacco and alcohol intake. 5. Prior history of GI bleeding. 6. History of pancreatitis. RECOMMENDATION: From the cardiac standpoint, will resume her routine medical regimen. I see no evidence of acute ischemic event. The elevation of the troponin has been noted in the past and could be related to the episode of atrial fibrillation. I would not recommend any further cardiac workup at this time. Will see her on as-needed basis. I have discussed with her again the importance of smoking and alcohol intake and close followup with [facility] and with Dr. Wilson Thank you for this consult. Will follow with you. MMODL / IJN: [id number] / TAMIKA
--- NOTE | 2020-03-04 17:34 | PN ---
PROGRESS NOTE CHIEF COMPLAINT: Alcohol intoxication, atrial fibrillation and elevated troponin. HISTORY OF PRESENT ILLNESS: This lady remains lethargic, but denies chest pain, abdominal pain, DTs. PHYSICAL EXAMINATION: Her vital signs are normal. Chest is clear. Cardiac exam sounds like sinus rhythm. Abdomen is soft without any tenderness. IMPRESSION: 1. Acute alcohol intoxication. 2. Atrial fibrillation. 3. Congenital heart disease. 4. Impending DTs. PLAN: 1. Progress activity. 2. Await evaluation from Cardiology regarding her arrhythmia and elevated troponin. MMODL / IJN: [id number] /
[2020-03-04] MEDS: WARFARIN 2 MG TAB PO SCH (17:40)
[2020-03-05] MEDS: HYDROmorphone 1 MG/ML 1 ML SYRINGE IVP PRN ×3 (00:40→09:59)
[2020-03-05 04:13] VITALS: RESP 16; TEMP 97.8
[2020-03-05] MEDS: PANTOPRAZOLE 40 MG TABLET PO SCH (06:15)
[2020-03-05] MEDS: THIAMINE 100 MG TAB PO SCH (06:15)
[2020-03-05] MEDS: LORazepam 2 MG/ML INJ IV PRN (06:21)
[2020-03-05] MEDS: DIGOXIN 125 MCG TAB PO SCH (09:57)
[2020-03-05] MEDS: FUROSEMIDE 40 MG TAB PO SCH (09:57)
[2020-03-05] MEDS: METOPROLOL TARTRATE 50 MG TAB PO SCH (09:57)
[2020-03-05] MEDS: LORATADINE 10 MG TAB PO SCH (09:57)
[2020-03-05] MEDS: POTASSIUM CHLORIDE ER 20 MEQ TAB.ER PO SCH (09:58)
[2020-03-05] MEDS: SPIRONOLACTONE 25 MG TAB PO SCH (09:58)
[2020-03-05] MEDS: MULTIVITAMINS, THERA 1 EACH TAB PO SCH (11:23)
[2020-03-05 11:28] VITALS: BP 101/52; PULSE 69
--- NOTE | 2020-03-06 10:58 | CDI ---
Documentation Clarification Form Date: 03/06/20 From: Jazmyn Horton CCS Phone: If you have a question about this query, please contact Kandy Dominguez, Assistant Professor Of Surgery at [phone] between 8am and 5pm. Admit Date: 03/02/20 Discharge Date:03/05/20 Patient Name: Anita Wilcox Visit Number: [id number] ATTENTION: The Clinical Documentation Specialists (CDI) and [facility] Coding Staff appreciate your assistance in clarifying documentation. Please respond to the clarification below the line at the bottom and electronically sign. The CDI & [facility] Coding staff will review the response and follow-up if needed. Please note: Queries are made part of the Legal Health Record. If you have any questions, please contact the author of this message via ITS. Dear Dr. Wilson, History of CHF is documented in the ED. History/Risk Factors: PHTN, Valve Disease, AFIB Clinical Indicators: Hx CHF BNP: 813 Echocardiogram Results: During her most recent admission last months she underwent an echocardiogram that revealed an ejection fraction of 45% to 50%. Treatment: Lasix 80 mg PO Daily (continued from home) In your professional opinion, can you please clarify the acuity and type of CHF if known? Systolic Heart Failure: Acute Chronic Acute on Chronic Diastolic Heart Failure: Acute Chronic Acute on Chronic Systolic & Diastolic Heart Failure: Acute Chronic Acute on Chronic Heart Failure Unable to Determine Other, please specify MTDD
--- NOTE | 2020-03-07 03:45 | DS ---
DISCHARGE SUMMARY DATE OF SERVICE: 03/05/2020 CHIEF COMPLAINT: Atrial fibrillation with rapid ventricular response and acute alcohol intoxication. HISTORY OF PRESENT ILLNESS AND PHYSICAL EXAM: Details of this lady's history and physical can be found in the initial workup. LABORATORY STUDIES: While she was in the hospital she had laboratory studies, details of which can be found in the laboratory section of her chart. COURSE IN THE HOSPITAL: After admission, she was placed on bedrest and started on intravenous fluids and Cardizem drip. She converted to normal sinus rhythm. She is evaluated by Cardiology. Effects of her alcohol had subsided and she was doing well enough it was felt that she could be discharged on the . She will go home on her usual activity, diet and medication and was urged to be more compliant about management of her cardiac disease and encourage her to make a followup appointment immediately, which she has not done in the past. FINAL DIAGNOSES: 1. Atrial fibrillation with rapid ventricular response. 2. 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 3. Acute alcohol intoxication. 4. Chronic alcoholism. 5. 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 6. Low back pain. 7. History of pancreatitis. OPERATIONS: None. CONSULTATION: Cardiology. She is improved. MMODL / IJN: [id number] /
--- NOTE | 2020-03-07 04:02 | MISC ---
MISCELLANOUS REPORT QUERY: Chronic systolic and diastolic heart failure. MMODL / IJN: [id number] /
== END 2020-03-05 15:14 | disposition home or self-care (01) | DRG 897 ==
LOC: EC 15:49 → 3SCARD 18:06
PROVIDERS: ADMIT Family Medicine; ATTEND Family Medicine
DX: F10.220 Alcohol dependence with intoxication, uncomplicated (principal); I42.6 Alcoholic cardiomyopathy; I50.42 Chronic combined systolic (congestive) and diastolic (congestive) heart failure; I27.29 Other secondary pulmonary hypertension; Z11.59 Encounter for screening for other viral diseases; I48.0 Paroxysmal atrial fibrillation; F41.9 Anxiety disorder, unspecified; E83.42 Hypomagnesemia; I08.1 Rheumatic disorders of both mitral and tricuspid valves; D64.9 Anemia, unspecified; M54.5 Low back pain; Y90.8 Blood alcohol level of 240 mg/100 ml or more; Z79.01 Long term (current) use of anticoagulants; Z79.899 Other long term (current) drug therapy; Z87.891 Personal history of nicotine dependence; Z87.74 Personal history of (corrected) congenital malformations of heart and circulatory system; Z91.19 Patient's noncompliance with other medical treatment and regimen; Z87.19 Personal history of other diseases of the digestive system; Z91.041 Radiographic dye allergy status
CPT/HCPCS: 36415; 80048; 80053; 80061; 80162; 80320; 82550; 83690; 83735; 83880; 84100; 84443; 84484; 85025; 85379; 85610; 85730; 93005; 96365; 96366; 96368; 96375; 96376; 99291

== ENCOUNTER 2020-03-07 03:40 | Emergency (ER) | payer OTHER ==
[2020-03-07] MEDS ORDERED: LORazepam 2 MG/ML INJ ONE (04:03)
== END 2020-03-07 05:23 | disposition home or self-care (01) ==
LOC: EC 03:40
DX: Z76.5 Malingerer [conscious simulation] (principal); F41.0 Panic disorder [episodic paroxysmal anxiety]; Z53.29 Procedure and treatment not carried out because of patient's decision for other reasons
CPT/HCPCS: 96372; 99283

== ENCOUNTER 2020-03-08 14:14 | Emergency (ER) | payer OTHER ==
[2020-03-08 14:20] VITALS: TEMP 98.1
[2020-03-08] MEDS ORDERED: LORazepam 2 MG/ML INJ IV STA (14:31)
--- NOTE | 2020-03-08 14:55 | ED ---
General Adult HPI - General Chief complaint: Anxiety Stated complaint: EMILI/anxiety Time Seen by Provider: 03/08/20 14:15 Source: patient, EMS, RN notes reviewed, old records reviewed Mode of arrival: EMS Limitations: no limitations - History of Present Illness Initial comments: 44-year-old female presenting for evaluation of anxiety. Patient states she has been anxious since she was recently discharged from the hospital and she was not prescribed any anxiety medication. She previously been on Ativan 1 mg for anxiety. She called EMS with chief complaint of anxiety and dyspnea. No chest pain. No cough or fever. No abdominal pain nausea vomiting. Patient denies lower extremity edema, no lower extremity pain. She has significant past medical history including atrial fibrillation, transposition of the great vessels, congestive heart failure. - Related Data Home Medications Medication Instructions Recorded Confirmed Digoxin [Digitek] 125 mcg PO DAILY 12/19/17 03/02/20 Spironolactone [Aldactone] 25 mg PO DAILY 12/19/17 03/02/20 Furosemide [Lasix] 80 mg PO DAILY 03/19/19 03/02/20 Potassium Chloride [Klor-Con 20] 40 meq PO BID 03/19/19 03/02/20 LORazepam [Ativan] 0.5 mg PO TID PRN 03/31/19 03/02/20 Loratadine [Claritin] 10 mg PO DAILY 11/04/19 03/02/20 Warfarin Sodium [Coumadin] 4 mg PO HS 02/03/20 03/02/20 Metoprolol Tartrate [Lopressor] 200 mg PO DAILY 03/02/20 03/02/20 Previous Rx's Medication Instructions Recorded Pantoprazole [Protonix] 40 mg PO AC-BID #60 tablet. 11/10/19 Thiamine [Vitamin B-1] 100 mg PO BID-W/MEALS #100 tab 02/13/20 Allergies Allergy/AdvReac Type Severity Reaction Status Date / Time Iodinated Contrast Media AdvReac TWITCHING Verified 03/08/20 14:20 [Iodinated Contrast- Oral and IV Dye] Review of Systems ROS Statement: Those systems with pertinent positive or pertinent negative responses have been documented in the HPI. ROS Other: All systems not noted in ROS Statement are negative. Past Medical History Past Medical History: Atrial Fibrillation, Heart Failure Additional Past Medical History / Comment(s): Afib with RVR, pt had transposition of great arteries as an , hypomagnesemia, anemia. History of Any Multi-Drug Resistant Organisms: ESBL Date of last positivie culture/infection: 02/25/17 ESBL-Klebsiella MDRO Source:: Urine Past Surgical History: No Surgical Hx Reported Additional Past Surgical History / Comment(s): open heart surg for transposition of great arteries, CARDIOVERTED FOR A- FIB twice Past Anesthesia/Blood Transfusion Reactions: No Reported Reaction Past Psychological History: Anxiety, Depression Smoking Status: Never smoker Past Alcohol Use History: Occasional Past Drug Use History: None Reported - Past Family History Mother Family Medical History: No Reported History Additional Family Medical History / Comment(s): Mother is healthy Father Family Medical History: No Reported History Additional Family Medical History / Comment(s): Father is healthy General Exam Limitations: no limitations General appearance: alert, in no apparent distress, anxious Head exam: Present: atraumatic, normocephalic Eye exam: Present: normal appearance, PERRL ENT exam: Present: normal exam Neck exam: Present: normal inspection, tenderness Respiratory exam: Present: normal lung sounds bilaterally, other (Tachypnea with good air entry). Absent: respiratory distress, wheezes, rales Cardiovascular Exam: Present: regular rate, normal rhythm GI/Abdominal exam: Present: soft. Absent: distended, tenderness, guarding Extremities exam: Present: normal inspection, normal capillary refill. Absent: pedal edema, calf tenderness Neurological exam: Present: alert, oriented X3, CN II-XII intact. Absent: motor sensory deficit Psychiatric exam: Present: normal affect, normal mood Skin exam: Present: warm, dry, intact. 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 Medical Decision Making - Medical Decision Making 34-year-old female with significant past medical history presenting with anxiety. Patient does admit to alcohol consumption yesterday evening. She's had previous history of alcohol abuse in the past and alcoholic hepatitis as well. Workup in the emergency department reveals EKG showing sinus rhythm with right bundle-branch block, no change compared to prior. Chest x-ray showed pu lmonary hypertension, mild pulmonary vascular congestion. Hemoglobin 10.1 which is improved from recent of 9.5. She has a therapeutic INR at 2.3. Electrolyte abnormalities including hypomagnesemia 1.1 which is replaced in the emergency department. Her bilirubin is 1.6 which is improved from recent of 4.2. Serum alcohol is 11. She is feeling better after Ativan. She will contact her primary care physician regarding prescription for anxiolytics. - Lab Data Result diagrams: 03/08/20 14:28 03/08/20 14:28 Lab Results 03/08/20 03/08/20 03/08/20 Range/Units 14:28 14:28 14:28 WBC 8.0 (3.8-10.6) k/uL RBC 3.74 L (3.80-5.40) m/uL Hgb 10.1 L (11.4-16.0) gm/dL Hct 31.7 L (34.0-46.0) % MCV 84.6 (80.0-100.0) fL MCH 26.9 (25.0-35.0) pg MCHC 31.8 (31.0-37.0) g/dL RDW 24.4 H (11.5-15.5) % Plt Count 299 (150-450) k/uL Neutrophils % 75 % Lymphocytes % 16 % Monocytes % 5 % Eosinophils % 1 % Basophils % 1 % Neutrophils # 6.0 (1.3-7.7) k/uL Lymphocytes # 1.3 (1.0-4.8) k/uL Monocytes # 0.4 (0-1.0) k/uL Eosinophils # 0.1 (0-0.7) k/uL Basophils # 0.1 (0-0.2) k/uL Hypochromasia Marked Poikilocytosis Slight Anisocytosis Marked Microcytosis Moderate PT 22.8 H (9.0-12.0) sec INR 2.3 H (<1.2) APTT 33.6 H (22.0-30.0) sec Sodium 137 (137-145) mmol/L Potassium 3.4 L (3.5-5.1) mmol/L Chloride 104 (98-107) mmol/L Carbon Dioxide 21 L (22-30) mmol/L Anion Gap 12 mmol/L BUN 3 L (7-17) mg/dL Creatinine 0.47 L (0.52-1.04) mg/dL Est GFR (CKD-EPI)AfAm >90 (>60 ml/min/1.73 sqM) Est GFR (CKD-EPI)NonAf >90 (>60 ml/min/1.73 sqM) Glucose 110 H (74-99) mg/dL Plasma Lactic Acid Andrew (0.7-2.0) mmol/L Calcium 9.0 (8.4-10.2) mg/dL Magnesium 1.1 L (1.6-2.3) mg/dL Total Bilirubin 1.6 H (0.2-1.3) mg/dL AST 121 H (14-36) U/L ALT 47 H (4-34) U/L Alkaline Phosphatase 185 H (38-126) U/L Troponin I (0.000-0.034) ng/mL NT-Pro-B Natriuret Pep pg/mL Total Protein 7.0 (6.3-8.2) g/dL Albumin 4.0 (3.5-5.0) g/dL Serum Alcohol 11 mg/dL 03/08/20 03/08/20 03/08/20 Range/Units 14:28 14:28 14:28 WBC (3.8-10.6) k/uL RBC (3.80-5.40) m/uL Hgb (11.4-16.0) gm/dL Hct (34.0-46.0) % MCV (80.0-100.0) fL MCH (25.0-35.0) pg MCHC (31.0-37.0) g/dL RDW (11.5-15.5) % Plt Count (150-450) k/uL Neutrophils % % Lymphocytes % % Monocytes % % Eosinophils % % Basophils % % Neutrophils # (1.3-7.7) k/uL Lymphocytes # (1.0-4.8) k/uL Monocytes # (0-1.0) k/uL Eosinophils # (0-0.7) k/uL Basophils # (0-0.2) k/uL Hypochromasia Poikilocytosis Anisocytosis Microcytosis PT (9.0-12.0) sec INR (<1.2) APTT (22.0-30.0) sec Sodium (137-145) mmol/L Potassium (3.5-5.1) mmol/L Chloride (98-107) mmol/L Carbon Dioxide (22-30) mmol/L Anion Gap mmol/L BUN (7-17) mg/dL Creatinine (0.52-1.04) mg/dL Est GFR (CKD-EPI)AfAm (>60 ml/min/1.73 sqM) Est GFR (CKD-EPI)NonAf (>60 ml/min/1.73 sqM) Glucose (74-99) mg/dL Plasma Lactic Acid Andrew 2.2 H* (0.7-2.0) mmol/L Calcium (8.4-10.2) mg/dL Magnesium (1.6-2.3) mg/dL Total Bilirubin (0.2-1.3) mg/dL AST (14-36) U/L ALT (4-34) U/L Alkaline Phosphatase (38-126) U/L Troponin I 0.017 (0.000-0.034) ng/mL NT-Pro-B Natriuret Pep 1700 pg/mL Total Protein (6.3-8.2) g/dL Albumin (3.5-5.0) g/dL Serum Alcohol mg/dL Disposition Clinical Impression: Acute anxiety, Hypomagnesemia, Alcoholic liver disease, Anxiety Disposition: HOME SELF-CARE Condition: Fair Instructions (If sedation given, give patient instructions): Generalized Anxiety Disorder (ED) Is patient prescribed a controlled substance at d/c from ED?: No Referrals: Rodney Wilson MD [Primary Care Provider] - 1-2 days Time of Disposition: 15:37
[2020-03-08 14:56] LABS: ALT 47 U/L (4-34); AST 121 U/L (14-36); African American GFR (CKD) >90 (>60 ml/min/1.73 sqM); Alcohol 11 mg/dL; Alkaline Phosphatase 185 U/L (38-126); Anion Gap 12 mmol/L; Anisocytosis Marked; Basophils # (A) 0.1 k/uL (0-0.2); Basophils % (A) 1 %; Blood Urea Nitrogen 3 mg/dL (7-17); Carbon Dioxide 21 mmol/L (22-30); Chloride 104 mmol/L (98-107); Eosinophils # (A) 0.1 k/uL (0-0.7); Eosinophils % (A) 1 %; Glucose 110 mg/dL (74-99); HCT 31.7 % (34.0-46.0); HGB 10.1 gm/dL (11.4-16.0); Hypochromasia Marked; Lymphocytes # (A) 1.3 k/uL (1.0-4.8); Lymphocytes % (A) 16 %; MCH 26.9 pg (25.0-35.0); MCHC 31.8 g/dL (31.0-37.0); MCV 84.6 fL (80.0-100.0); Magnesium 1.1 mg/dL (1.6-2.3); Mean Platelet Volume 8.3; Microcytosis Moderate; Monocytes # (A) 0.4 k/uL (0-1.0); Monocytes % (A) 5 %; Neutrophils % (A) 75 %; Non-African American GFR(CKD) >90 (>60 ml/min/1.73 sqM); Platelet Count 299 k/uL (150-450); Poikilocytosis Slight; Potassium 3.4 mmol/L (3.5-5.1); RBC 3.74 m/uL (3.80-5.40); RDW 24.4 % (11.5-15.5); Sodium 137 mmol/L (137-145); Total Bilirubin 1.6 mg/dL (0.2-1.3)
[2020-03-08 15:06] LABS: INR 2.3 (<1.2); Partial Thromboplastin Time 33.6 sec (22.0-30.0); Prothrombin Time 22.8 sec (9.0-12.0)
[2020-03-08] MEDS ORDERED: MAGNESIUM SULFATE-D5W PMX 1 GM in DEXTROSE/WATER 1 100ML.BAG IVPB ONE (15:11)
--- NOTE | 2020-03-08 15:18 | XR ---
EXAMINATION TYPE: XR chest 2V DATE OF EXAM: 03/08/2020 COMPARISON: 02/04/2020 HISTORY: 34-year-old female difficulty breathing, shortness of breath TECHNIQUE: AP and lateral views FINDINGS: Heart mild to moderately enlarged. Median sternotomy wires. Hilar soft tissue prominence redemonstrat ed. Mild diffuse interstitial density. No gil consolidation or pleural effusion. Some focal density at the right base likely prominent right-sided rib end. IMPRESSION: 1. Cardiomegaly. Prior median sternotomy. Suspect pulmonary arterial hypertension. 2. Slight interstitial prominence may reflect mild pulmonary vascular congestion. 3. A 6 - 8 weeks follow-up recommended to reassess a focal right basilar density, suspected prominent rib end.
[2020-03-08] MEDS ORDERED: SODIUM CHLORIDE 0.9% 500 ML 500 ML IV STA (15:28)
[2020-03-08 15:39] VITALS: RESP 18
[2020-03-08 16:18] VITALS: BP 109/72; PULSE 82
== END 2020-03-08 16:33 | disposition home or self-care (01) ==
LOC: EC 14:14
DX: K70.9 Alcoholic liver disease, unspecified (principal); F41.9 Anxiety disorder, unspecified; E83.42 Hypomagnesemia; I45.10 Unspecified right bundle-branch block; I27.20 Pulmonary hypertension, unspecified; I48.91 Unspecified atrial fibrillation; I50.9 Heart failure, unspecified; F32.9 Major depressive disorder, single episode, unspecified; Z79.01 Long term (current) use of anticoagulants; Z79.899 Other long term (current) drug therapy; Z91.041 Radiographic dye allergy status
CPT/HCPCS: 36415; 93005; 83880; 80053; 83605; 83735; 84484; 85025; 85610; 85730; 71046; 99284; 96365; 96375; G0480; J2060; J3475; 80320

== ENCOUNTER 2020-03-10 18:49 | Emergency (ER) | payer OTHER ==
[2020-03-10 18:52] VITALS: RESP 16; TEMP 98
[2020-03-10] MEDS ORDERED: ASPIRIN 81 MG PO STA (19:14)
[2020-03-10] MEDS ORDERED: LORazepam 2 MG/ML INJ IV STA (19:16)
[2020-03-10 19:53] LABS: Anisocytosis Moderate; Basophils # (A) 0.1 k/uL (0-0.2); Basophils % (A) 2 %; Eosinophils # (A) 0.2 k/uL (0-0.7); Eosinophils % (A) 4 %; HCT 31.9 % (34.0-46.0); Hypochromasia Marked; Lymphocytes # (A) 2.2 k/uL (1.0-4.8); Lymphocytes % (A) 37 %; MCH 26.6 pg (25.0-35.0); MCHC 31.4 g/dL (31.0-37.0); MCV 84.9 fL (80.0-100.0); Microcytosis Moderate; Monocytes # (A) 0.4 k/uL (0-1.0); Monocytes % (A) 6 %; Neutrophils # (A) 2.8 k/uL (1.3-7.7); Neutrophils % (A) 47 %; Platelet Count 349 k/uL (150-450); Poikilocytosis Slight; RBC 3.76 m/uL (3.80-5.40); RDW 23.7 % (11.5-15.5); WBC 5.9 k/uL (3.8-10.6)
--- NOTE | 2020-03-10 19:56 | XR ---
EXAMINATION TYPE: XR chest 2V DATE OF EXAM: 03/10/2020 COMPARISON: 03/08/2020 HISTORY: Short of breath TECHNIQUE: 2 views FINDINGS: Heart is enlarged. There is mild pulmonary congestion. Costophrenic angles are clear. There are chest leads. There are no hilar masses. IMPRESSION: Cardiomegaly. Mild pulmonary congestion but no pleural fluid seen to suggest heart failur e. Pulmonary vascularity increased slightly compared to old exam.
[2020-03-10 20:00] LABS: ALT 42 U/L (4-34); AST 111 U/L (14-36); African American GFR (CKD) >90 (>60 ml/min/1.73 sqM); Albumin 3.7 g/dL (3.5-5.0); Alkaline Phosphatase 158 U/L (38-126); Anion Gap 14 mmol/L; Blood Urea Nitrogen <2 mg/dL (7-17); Calcium 8.9 mg/dL (8.4-10.2); Carbon Dioxide 22 mmol/L (22-30); Chloride 112 mmol/L (98-107); Glucose 126 mg/dL (74-99); Magnesium 1.5 mg/dL (1.6-2.3); Non-African American GFR(CKD) >90 (>60 ml/min/1.73 sqM); Potassium 3.3 mmol/L (3.5-5.1); Sodium 148 mmol/L (137-145); Total Protein 6.8 g/dL (6.3-8.2)
[2020-03-10] MEDS ORDERED: POTASSIUM CHLORIDE ER 20 MEQ TAB.ER PO STA (20:06)
[2020-03-10] MEDS ORDERED: MAGNESIUM SULFATE-D5W PMX 1 GM in DEXTROSE/WATER 1 100ML.BAG IVPB ONE (20:06)
[2020-03-10 20:30] LABS: INR 2.2 (<1.2); Partial Thromboplastin Time 30.9 sec (22.0-30.0); Prothrombin Time 21.9 sec (9.0-12.0)
[2020-03-10] MEDS ORDERED: LORazepam 1 MG TAB PO STA (20:36)
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
[2020-03-10 20:48] VITALS: BP 108/66; PULSE 85
== END 2020-03-10 23:59 | disposition home or self-care (01) ==
LOC: EC 18:49
DX: F41.9 Anxiety disorder, unspecified (principal); F10.129 Alcohol abuse with intoxication, unspecified; Z76.5 Malingerer [conscious simulation]; D64.9 Anemia, unspecified; I51.7 Cardiomegaly; E83.42 Hypomagnesemia; E87.6 Hypokalemia; G89.29 Other chronic pain; M54.9 Dorsalgia, unspecified; R74.0 Nonspecific elevation of levels of transaminase and lactic acid dehydrogenase [LDH]; R06.02 Shortness of breath; I48.91 Unspecified atrial fibrillation; I50.9 Heart failure, unspecified; Z98.890 Other specified postprocedural states; Z79.01 Long term (current) use of anticoagulants; Z79.899 Other long term (current) drug therapy; Z91.041 Radiographic dye allergy status
CPT/HCPCS: 82075; 36415; 93005; 83880; 80053; 83735; 84484; 85025; 85610; 85730; 71046; 99285; 96365; 96366 ×2; 96375; J2060; J3475

== ENCOUNTER 2020-03-11 20:22 | Observation (INO) | payer OTHER ==
[~2020-03-11 20:22] MED LIST: DEXAMETHASONE 4 MG TAB PO ONE
[2020-03-11 20:32] VITALS: TEMP 97.6
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
[2020-03-11] MEDS ORDERED: FAMOTIDINE 20 MG/2 ML VIAL IV STA (20:56)
[2020-03-11] MEDS ORDERED: methylPREDNISolone SOD SUCCI 125 MG/2 ML VIAL IV STA (20:56)
[2020-03-11] MEDS ORDERED: diphenhydrAMINE 50 MG/ML 1 ML VIAL IVP STA (20:56)
[2020-03-11] MEDS ORDERED: DEXAMETHASONE SOD PHOSPHATE 10 MG/ML 1 ML VIAL IV STA (21:06)
[2020-03-11 21:29] LABS: African American GFR (CKD) >90 (>60 ml/min/1.73 sqM); Anion Gap 12 mmol/L; Blood Urea Nitrogen 2 mg/dL (7-17); Calcium 9.3 mg/dL (8.4-10.2); Carbon Dioxide 22 mmol/L (22-30); Chloride 110 mmol/L (98-107); Glucose 98 mg/dL (74-99); Non-African American GFR(CKD) >90 (>60 ml/min/1.73 sqM); Potassium 3.4 mmol/L (3.5-5.1); Sodium 144 mmol/L (137-145)
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
[2020-03-11] MEDS ORDERED: ACETAMINOPHEN TAB 325 MG TAB PO PRN (22:05)
[2020-03-11] MEDS ORDERED: ALPRAZolam 0.25 MG TAB PO PRN (22:05)
[2020-03-11] MEDS ORDERED: NALOXONE 0.4 MG/ML 1 ML VIAL IV PRN (22:05)
[2020-03-11] MEDS ORDERED: DEXAMETHASONE 4 MG TAB PO SCH (22:15)
[2020-03-11] MEDS ORDERED: SODIUM CHLORIDE 0.9% 1,000 ML IV SCH (22:15)
[2020-03-11] MEDS ORDERED: LORazepam 2 MG/ML INJ IV STA (22:24)
[2020-03-12] MEDS ORDERED: DEXAMETHASONE 4 MG TAB PO ONE (05:00)
[2020-03-12 08:18] VITALS: BP 117/81; PULSE 89
[2020-03-12 10:36] VITALS: RESP 20
[2020-03-12] MEDS ORDERED: DEXAMETHASONE 4 MG TAB PO SCH (13:00)
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
--- NOTE | 2020-03-12 18:16 | DS ---
DISCHARGE SUMMARY CHIEF COMPLAINT: Contusion to the neck and throat. HISTORY OF PRESENT ILLNESS AND PHYSICAL EXAMINATION: Details of this lady's history and physical can be found in the initial workup. LABORATORY STUDIES: While she was in the hospital she had laboratory studies, details of which can be found in the laboratory section of her chart. COURSE IN THE HOSPITAL: After she was admitted, she was overnight in the ER. The following morning she was to have been seen by ENT, and signed herself out AGAINST MEDICAL ADVICE. FINAL DIAGNOSES: 1. Contusion of the neck and throat with dysphonia. 2. Congenital heart disease. 3. Chronic alcoholism. OPERATIONS: None. CONSULTATIONS: None. MMODL / IJN: [id number] /
== END 2020-03-12 10:41 | disposition left against medical advice (07) ==
LOC: EC 20:22 → 1SOBS 22:05
PROVIDERS: ADMIT Family Medicine; ATTEND Family Medicine
DX: F41.1 Generalized anxiety disorder (principal); S10.0XXA Contusion of throat, initial encounter; S10.93XA Contusion of unspecified part of neck, initial encounter; Z53.29 Procedure and treatment not carried out because of patient's decision for other reasons; Q24.9 Congenital malformation of heart, unspecified; F10.20 Alcohol dependence, uncomplicated; I48.91 Unspecified atrial fibrillation; E83.42 Hypomagnesemia; D64.9 Anemia, unspecified; I45.10 Unspecified right bundle-branch block; I50.9 Heart failure, unspecified; Z79.01 Long term (current) use of anticoagulants; Z79.899 Other long term (current) drug therapy; Z91.041 Radiographic dye allergy status
CPT/HCPCS: 96374; 96375; 99284; 99285; 36415; 93005 ×2; 80048; 70491; G0378 ×2; U0003; J8540; J2060; J1200; J1100; Q9967

== ENCOUNTER 2020-03-12 19:02 | Emergency (ER) | payer OTHER ==
[2020-03-12 19:06] VITALS: BP 110/72; PULSE 98; RESP 18; TEMP 97.9
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
== END 2020-03-12 19:46 | disposition home or self-care (01) ==
LOC: EC 19:02
DX: R00.2 Palpitations (principal); R07.9 Chest pain, unspecified; R49.0 Dysphonia; I48.20 Chronic atrial fibrillation, unspecified; F41.9 Anxiety disorder, unspecified; F32.9 Major depressive disorder, single episode, unspecified; Z79.01 Long term (current) use of anticoagulants; Z79.899 Other long term (current) drug therapy; Z98.890 Other specified postprocedural states
CPT/HCPCS: 93005; 99284

== ENCOUNTER 2020-03-19 19:04 | Emergency (ER) | payer OTHER ==
[2020-03-19 19:10] VITALS: BP 106/63; PULSE 123; RESP 20; TEMP 97.4
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
== END 2020-03-19 19:43 | disposition left against medical advice (07) ==
LOC: EC 19:04
DX: R49.0 Dysphonia (principal); I48.91 Unspecified atrial fibrillation; I50.9 Heart failure, unspecified; F32.9 Major depressive disorder, single episode, unspecified; F41.9 Anxiety disorder, unspecified; Z79.899 Other long term (current) drug therapy; Z79.01 Long term (current) use of anticoagulants; Z53.29 Procedure and treatment not carried out because of patient's decision for other reasons
CPT/HCPCS: 99284

== ENCOUNTER 2020-03-20 15:39 | Emergency (ER) | payer OTHER ==
[2020-03-20 16:15] VITALS: TEMP 98.5
[2020-03-20] MEDS ORDERED: LORazepam 2 MG/ML INJ IV STA (16:58)
[2020-03-20 17:29] LABS: Anisocytosis Moderate; Basophils # (A) 0.1 k/uL (0-0.2); Basophils % (A) 1 %; Eosinophils # (A) 0.1 k/uL (0-0.7); Eosinophils % (A) 1 %; HCT 38.1 % (34.0-46.0); HGB 11.8 gm/dL (11.4-16.0); Hypochromasia Marked; Lymphocytes # (A) 2.2 k/uL (1.0-4.8); Lymphocytes % (A) 28 %; MCH 26.4 pg (25.0-35.0); MCHC 31.1 g/dL (31.0-37.0); MCV 85.1 fL (80.0-100.0); Mean Platelet Volume 7.4; Microcytosis Slight; Monocytes # (A) 0.5 k/uL (0-1.0); Monocytes % (A) 6 %; Neutrophils # (A) 4.8 k/uL (1.3-7.7); Neutrophils % (A) 62 %; Platelet Count 492 k/uL (150-450); Poikilocytosis Slight; RBC 4.48 m/uL (3.80-5.40); RDW 22.8 % (11.5-15.5); WBC 7.7 k/uL (3.8-10.6)
[2020-03-20 17:36] LABS: ALT 46 U/L (4-34); AST 134 U/L (14-36); African American GFR (CKD) >90 (>60 ml/min/1.73 sqM); Albumin 4.8 g/dL (3.5-5.0); Alkaline Phosphatase 197 U/L (38-126); Anion Gap 19 mmol/L; Blood Urea Nitrogen 6 mg/dL (7-17); Calcium 8.9 mg/dL (8.4-10.2); Carbon Dioxide 23 mmol/L (22-30); Chloride 97 mmol/L (98-107); Glucose 84 mg/dL (74-99); Non-African American GFR(CKD) >90 (>60 ml/min/1.73 sqM); Potassium 4.5 mmol/L (3.5-5.1); Sodium 139 mmol/L (137-145); Total Protein 8.2 g/dL (6.3-8.2)
[2020-03-20 18:12] VITALS: RESP 16
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
[2020-03-20 18:30] VITALS: BP 129/76; PULSE 90
== END 2020-03-20 18:40 | disposition home or self-care (01) ==
LOC: EC 15:39
DX: R00.2 Palpitations (principal); I48.91 Unspecified atrial fibrillation; I50.9 Heart failure, unspecified; F41.9 Anxiety disorder, unspecified; F32.9 Major depressive disorder, single episode, unspecified; I45.10 Unspecified right bundle-branch block; I44.0 Atrioventricular block, first degree; F17.200 Nicotine dependence, unspecified, uncomplicated; Z79.01 Long term (current) use of anticoagulants; Z79.899 Other long term (current) drug therapy
CPT/HCPCS: 36415; 93005; 80053; 85025; 99285; 96374; J2060

== ENCOUNTER 2020-03-21 16:49 | Emergency (ER) | payer OTHER ==
[2020-03-21] MEDS ORDERED: LORazepam 1 MG TAB PO STA (17:03)
[2020-03-21 17:07] VITALS: BP 116/81; PULSE 96; RESP 18; TEMP 97.1
[2020-03-21 17:50] LABS: Anisocytosis Moderate; Basophils # (A) 0.1 k/uL (0-0.2); Basophils % (A) 2 %; Eosinophils # (A) 0.1 k/uL (0-0.7); Eosinophils % (A) 1 %; HCT 37.8 % (34.0-46.0); Hypochromasia Moderate; Lymphocytes % (A) 41 %; MCH 26.5 pg (25.0-35.0); MCHC 31.9 g/dL (31.0-37.0); MCV 83.3 fL (80.0-100.0); Mean Platelet Volume 7.2; Microcytosis Slight; Monocytes # (A) 0.6 k/uL (0-1.0); Monocytes % (A) 9 %; Neutrophils # (A) 3.2 k/uL (1.3-7.7); Neutrophils % (A) 44 %; Platelet Count 523 k/uL (150-450); Poikilocytosis Slight; RBC 4.53 m/uL (3.80-5.40); RDW 22.5 % (11.5-15.5); WBC 7.2 k/uL (3.8-10.6)
[2020-03-21 18:06] LABS: ALT 44 U/L (4-34); AST 144 U/L (14-36); African American GFR (CKD) >90 (>60 ml/min/1.73 sqM); Albumin 4.4 g/dL (3.5-5.0); Alkaline Phosphatase 209 U/L (38-126); Anion Gap 17 mmol/L; Blood Urea Nitrogen 10 mg/dL (7-17); Carbon Dioxide 27 mmol/L (22-30); Chloride 93 mmol/L (98-107); Glucose 92 mg/dL (74-99); Non-African American GFR(CKD) >90 (>60 ml/min/1.73 sqM); Potassium 3.1 mmol/L (3.5-5.1); Sodium 137 mmol/L (137-145); Total Bilirubin 1.9 mg/dL (0.2-1.3); Total Protein 7.5 g/dL (6.3-8.2)
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
== END 2020-03-21 18:50 | disposition left against medical advice (07) ==
LOC: EC 16:49
DX: R06.02 Shortness of breath (principal); S50.11XA Contusion of right forearm, initial encounter; M54.2 Cervicalgia; S09.90XA Unspecified injury of head, initial encounter; I45.10 Unspecified right bundle-branch block; E87.6 Hypokalemia; R74.0 Nonspecific elevation of levels of transaminase and lactic acid dehydrogenase [LDH]; R94.5 Abnormal results of liver function studies; I48.91 Unspecified atrial fibrillation; I50.9 Heart failure, unspecified; F32.9 Major depressive disorder, single episode, unspecified; F41.9 Anxiety disorder, unspecified; F17.200 Nicotine dependence, unspecified, uncomplicated; Z79.899 Other long term (current) drug therapy; Z79.01 Long term (current) use of anticoagulants; Z53.29 Procedure and treatment not carried out because of patient's decision for other reasons; Y04.2XXA Assault by strike against or bumped into by another person, initial encounter
CPT/HCPCS: 36415; 70450; 72125; 80053; 83880; 84484; 85025; 93005; 99285

== ENCOUNTER 2020-03-22 14:38 | Emergency (ER) | payer OTHER ==
[2020-03-22 14:48] VITALS: TEMP 98.2
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
[2020-03-22 15:51] LABS: Anisocytosis Moderate; Basophils # (A) 0.1 k/uL (0-0.2); Basophils % (A) 2 %; Eosinophils % (A) 1 %; HCT 35.7 % (34.0-46.0); HGB 11.4 gm/dL (11.4-16.0); Hypochromasia Moderate; Lymphocytes # (A) 2.1 k/uL (1.0-4.8); Lymphocytes % (A) 44 %; MCHC 31.8 g/dL (31.0-37.0); MCV 81.6 fL (80.0-100.0); Mean Platelet Volume 7.1; Microcytosis Moderate; Monocytes # (A) 0.5 k/uL (0-1.0); Monocytes % (A) 11 %; Neutrophils # (A) 1.8 k/uL (1.3-7.7); Neutrophils % (A) 38 %; Platelet Count 454 k/uL (150-450); Poikilocytosis Slight; RBC 4.37 m/uL (3.80-5.40); RDW 22.4 % (11.5-15.5); WBC 4.7 k/uL (3.8-10.6)
[2020-03-22 16:04] LABS: African American GFR (CKD) >90 (>60 ml/min/1.73 sqM); Anion Gap 18 mmol/L; Blood Urea Nitrogen 6 mg/dL (7-17); Calcium 8.8 mg/dL (8.4-10.2); Carbon Dioxide 26 mmol/L (22-30); Chloride 92 mmol/L (98-107); Glucose 102 mg/dL (74-99); Non-African American GFR(CKD) >90 (>60 ml/min/1.73 sqM); Potassium 3.2 mmol/L (3.5-5.1); Sodium 136 mmol/L (137-145)
--- NOTE | 2020-03-22 16:16 | XR ---
EXAMINATION TYPE: XR chest 1V portable DATE OF EXAM: 03/22/2020 COMPARISON: 03/10/2020 HISTORY: Chest pain TECHNIQUE: Single frontal view of the chest is obtained. FINDINGS: There is no focal air space opacity, pleural effusion, or pneumothorax seen. The heart is enlarged unchanged from prior study. The osseous structures are intact. IMPRESSION: 1. Cardiomegaly without evidence for definite infiltrate or pulmonary venous congestion.
[2020-03-22] MEDS ORDERED: POTASSIUM CHLORIDE ER 20 MEQ TAB.ER PO STA (16:43)
[2020-03-22] MEDS ORDERED: ALPRAZolam 1 MG TAB PO STA (16:47)
[2020-03-22 17:34] VITALS: BP 117/52; PULSE 109; RESP 13
== END 2020-03-22 15:42 | disposition home or self-care (01) ==
LOC: EC 14:38
DX: R07.89 Other chest pain (principal); I48.91 Unspecified atrial fibrillation; I50.9 Heart failure, unspecified; F41.9 Anxiety disorder, unspecified; F32.9 Major depressive disorder, single episode, unspecified; F17.200 Nicotine dependence, unspecified, uncomplicated; Z76.5 Malingerer [conscious simulation]; Z79.01 Long term (current) use of anticoagulants; Z79.899 Other long term (current) drug therapy
CPT/HCPCS: 36415; 71045; 80048; 84484; 85025; 93005; 99285

== ENCOUNTER 2020-03-25 08:00 | Inpatient (IN) | payer OTHER ==
--- NOTE | 2020-03-25 08:38 | ED ---
General Adult HPI - General Chief complaint: Dizziness Stated complaint: low hemoglobin,dizzy Time Seen by Provider: 03/25/20 08:07 Source: patient Mode of arrival: wheelchair Limitations: no limitations - History of Present Illness Initial comments: Dictation was produced using [employer] dictation software. please excuse any grammatical, word or spelling errors. This patient was cared for during a federal and state declared state of emergency secondary to Covid 19 Chief Complaint: 34-year-old female presents with dizziness. History of Present Illness: A 34-year-old female with congenital heart abnormality status post surgery as a . She presents today with nausea and dizziness and concern of low hemoglobin and low potassium. Patient's monitor emergency department. Patient comes to the emergency department at least once or twice a week. This is patient's 10th visit this month. Patient reports that last time she felt this way she had low hemoglobin and low potassium. Patient states her symptoms began this morning. She states she did not take any of her heart medications prior to coming to the emergency departm ent. She complains of some dizziness. Denies some sedation of the room spinning. The ROS documented in this emergency department record has been reviewed and confirmed by me. Those systems with pertinent positive or negative responses have been documented in the HPI. All other systems are other negative and/or noncontributory. PHYSICAL EXAM: General Impression: Alert and oriented x3, not in acute distress HEENT: Normocephalic atraumatic, extra-ocular movements intact, pupils equal and reactive to light bilaterally, mucous membranes moist. Cardiovascular: Heart regular rate and rhythm Chest: Able to complete full sentences, no retractions, no tachypnea Abdomen: abdomen soft, non-tender, non-distended, no organomegaly Musculoskeletal: Pulses present and equal in all extremities, no peripheral edema Motor: no focal deficits noted Neurological: CN II-XII grossly intact, no focal motor or sensory deficits noted Skin: Intact with no visualized rashes Psych: Anxious ED course: 34-year-old female well-known to the emergency department presents today for dizziness, concerns of low hemoglobin and low potassium. Vital signs upon arrival are within acceptable limits. While in the room patient was very anxious. Second I walked outpatient all of a sudden became calm.While patient was in the emergency department her heart rates began to become significantly elevated. On monitor patient was having high rates of rapid ventricular rate with rates measured in the 160s-170s with hypertension with systolics measured in the 80s.. Patient given multiple doses of metoprolol for rate control. Patient's medications were reviewed. Patient is on very high doses of rate controlling medications. Adequate rate control was achieved. Patient's blood pressure improved with better rate control. Laboratory evaluation obtained. CBC unremarkable. Coag panel shows an of 1.9. Metabolic panel shows 24 anion gap. Magnesium is 0.6. Patient given IV magnesium. Discussed patient case Dr. Wilson was is willing to accept patient's care. Patient will be admitted for A. fib RVR and hypomagnesemia. Attempt disposition patient is very controlled and is well-appearing. She did require some anxiolytics for feeling anxious. EKG interpretation: Ventricular rate 132, A. fib with RVR, QRS 152, QTc 548. No AL prolongation, no QTC prolongation, no ST or T-wave changes noted. - Related Data Home Medications Medication Instructions Recorded Confirmed Digoxin [Digitek] 125 mcg PO DAILY 12/19/17 03/25/20 Spironolactone [Aldactone] 25 mg PO DAILY 12/19/17 03/25/20 Potassium Chloride [Klor-Con 20] 40 meq PO BID 03/19/19 03/25/20 Loratadine [Claritin] 10 mg PO DAILY 11/04/19 03/25/20 Metoprolol Tartrate [Lopressor] 200 mg PO DAILY 03/02/20 03/25/20 Escitalopram [Lexapro] 10 mg PO DAILY 03/11/20 03/25/20 Furosemide [Lasix] 80 mg PO DAILY 03/20/20 03/25/20 Warfarin [Coumadin] 5 mg PO HS 03/20/20 03/25/20 Previous Rx's Medication Instructions Recorded Pantoprazole [Protonix] 40 mg PO AC-BID #60 tablet. 11/10/19 Thiamine [Vitamin B-1] 100 mg PO BID-W/MEALS #100 tab 02/13/20 Allergies Allergy/AdvReac Type Severity Reaction Status Date / Time No Known Allergies Allergy Verified 03/25/20 09:27 Review of Systems ROS Statement: Those systems with pertinent positive or pertinent negative responses have been documented in the HPI. ROS Other: All systems not noted in ROS Statement are negative. 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 History of Any Multi-Drug Resistant Organisms: ESBL Date of last positivie culture/infection: 02/25/17 ESBL-Klebsiella MDRO Source:: Urine Past Surgical History: No Surgical Hx Reported Additional Past Surgical History / Comment(s): open heart surg for transposition of great arteries, CARDIOVERTED FOR A- FIB twice Past Anesthesia/Blood Transfusion Reactions: No Reported Reaction Past Psychological History: Anxiety, Depression Smoking Status: Current every day smoker Past Alcohol Use History: Abuse, Occasional Past Drug Use History: None Reported - Past Family History Mother Family Medical History: No Reported History Additional Family Medical History / Comment(s): Mother is healthy Father Family Medical History: No Reported History Additional Family Medical History / Comment(s): Father is healthy General Exam Limitations: no limitations Course Vital Signs 03/25/20 03/25/20 03/25/20 08:06 08:11 09:11 Temperature 97.4 F L Pulse Rate 67 142 H Respiratory 18 22 22 Rate Blood Pressure 105/73 114/60 O2 Sat by Pulse 100 96 Oximetry 03/25/20 09:39 Temperature Pulse Rate 108 H Respiratory 22 Rate Blood Pressure 114/85 O2 Sat by Pulse 100 Oximetry Medical Decision Making - Lab Data Result diagrams: 03/25/20 09:11 03/25/20 09:11 Lab Results 03/25/20 03/25/20 03/25/20 Range/Units 09:08 09:11 09:11 WBC 9.4 (3.8-10.6) k/uL RBC 5.15 (3.80-5.40) m/uL Hgb 13.7 (11.4-16.0) gm/dL Hct 43.2 (34.0-46.0) % MCV 83.8 (80.0-100.0) fL MCH 26.6 (25.0-35.0) pg MCHC 31.8 (31.0-37.0) g/dL RDW 21.3 H (11.5-15.5) % Plt Count 494 H (150-450) k/uL Neutrophils % 59 % Lymphocytes % 31 % Monocytes % 5 % Eosinophils % 2 % Basophils % 1 % Neutrophils # 5.5 (1.3-7.7) k/uL Lymphocytes # 2.9 (1.0-4.8) k/uL Monocytes # 0.5 (0-1.0) k/uL Eosinophils # 0.1 (0-0.7) k/uL Basophils # 0.1 (0-0.2) k/uL Hypochromasia Marked Poikilocytosis Slight Anisocytosis Moderate Microcytosis Slight PT (9.0-12.0) sec INR (<1.2) APTT (22.0-30.0) sec Sodium 134 L (137-145) mmol/L Potassium 3.4 L (3.5-5.1) mmol/L Chloride 86 L (98-107) mmol/L Carbon Dioxide 24 (22-30) mmol/L Anion Gap 24 mmol/L BUN 4 L (7-17) mg/dL Creatinine 0.68 (0.52-1.04) mg/dL Est GFR (CKD-EPI)AfAm >90 (>60 ml/min/1.73 sqM) Est GFR (CKD-EPI)NonAf >90 (>60 ml/min/1.73 sqM) Glucose 131 H (74-99) mg/dL Calcium 9.2 (8.4-10.2) mg/dL Phosphorus (2.5-4.5) mg/dL Magnesium 0.6 L* (1.6-2.3) mg/dL Blood Type O Positive Blood Type Recheck O Pos Bld Type Recheck Status No Antibody Screen NEGATIVE Spec Expiration Date 03/28/2020230703/25/20 03/25/20 Range/Units 09:11 09:11 WBC (3.8-10.6) k/uL RBC (3.80-5.40) m/uL Hgb (11.4-16.0) gm/dL Hct (34.0-46.0) % MCV (80.0-100.0) fL MCH (25.0-35.0) pg MCHC (31.0-37.0) g/dL RDW (11.5-15.5) % Plt Count (150-450) k/uL Neutrophils % % Lymphocytes % % Monocytes % % Eosinophils % % Basophils % % Neutrophils # (1.3-7.7) k/uL Lymphocytes # (1.0-4.8) k/uL Monocytes # (0-1.0) k/uL Eosinophils # (0-0.7) k/uL Basophils # (0-0.2) k/uL Hypochromasia Poikilocytosis Anisocytosis Microcytosis PT 19.0 H (9.0-12.0) sec INR 1.9 H (<1.2) APTT 27.5 (22.0-30.0) sec Sodium (137-145) mmol/L Potassium (3.5-5.1) mmol/L Chloride (98-107) mmol/L Carbon Dioxide (22-30) mmol/L Anion Gap mmol/L BUN (7-17) mg/dL Creatinine (0.52-1.04) mg/dL Est GFR (CKD-EPI)AfAm (>60 ml/min/1.73 sqM) Est GFR (CKD-EPI)NonAf (>60 ml/min/1.73 sqM) Glucose (74-99) mg/dL Calcium (8.4-10.2) mg/dL Phosphorus 4.1 (2.5-4.5) mg/dL Magnesium (1.6-2.3) mg/dL Blood Type Blood Type Recheck Bld Type Recheck Status Antibody Screen Spec Expiration Date Critical Care Time Critical Care Time: Yes Total Critical Care Time: 33 Disposition Clinical Impression: Atrial fibrillation with RVR, Hypomagnesemia Disposition: ADMITTED IP TO THIS [facility] Condition: Fair Referrals: Rodney Wilson MD [Primary Care Provider] - 1-2 days Decision Time: 10:29
[2020-03-25] MEDS ORDERED: METOPROLOL TARTRATE 5 MG/5 ML VIAL IVP STA (08:51)
[2020-03-25 09:27] LABS: Anisocytosis Moderate; Basophils # (A) 0.1 k/uL (0-0.2); Basophils % (A) 1 %; Eosinophils # (A) 0.1 k/uL (0-0.7); Eosinophils % (A) 2 %; HCT 43.2 % (34.0-46.0); HGB 13.7 gm/dL (11.4-16.0); Hypochromasia Marked; Lymphocytes # (A) 2.9 k/uL (1.0-4.8); Lymphocytes % (A) 31 %; MCH 26.6 pg (25.0-35.0); MCHC 31.8 g/dL (31.0-37.0); MCV 83.8 fL (80.0-100.0); Mean Platelet Volume 7.7; Microcytosis Slight; Monocytes # (A) 0.5 k/uL (0-1.0); Monocytes % (A) 5 %; Neutrophils # (A) 5.5 k/uL (1.3-7.7); Neutrophils % (A) 59 %; Platelet Count 494 k/uL (150-450); Poikilocytosis Slight; RBC 5.15 m/uL (3.80-5.40); RDW 21.3 % (11.5-15.5); WBC 9.4 k/uL (3.8-10.6)
[2020-03-25] MEDS: METOPROLOL TARTRATE 5 MG/5 ML VIAL IVP SCH ×2 (09:29→12:27)
[2020-03-25 09:36] LABS: INR 1.9 (<1.2); Partial Thromboplastin Time 27.5 sec (22.0-30.0)
[2020-03-25] MEDS ORDERED: METOPROLOL TARTRATE 50 MG TAB PO STA (09:37)
[2020-03-25 09:38] LABS: African American GFR (CKD) >90 (>60 ml/min/1.73 sqM); Anion Gap 24 mmol/L; Blood Urea Nitrogen 4 mg/dL (7-17); Calcium 9.2 mg/dL (8.4-10.2); Carbon Dioxide 24 mmol/L (22-30); Chloride 86 mmol/L (98-107); Glucose 131 mg/dL (74-99); Non-African American GFR(CKD) >90 (>60 ml/min/1.73 sqM); Potassium 3.4 mmol/L (3.5-5.1); Sodium 134 mmol/L (137-145)
[2020-03-25] MEDS ORDERED: LORazepam 2 MG/ML INJ IV STA (09:39)
[2020-03-25] MEDS ORDERED: SODIUM CHLORIDE 0.9% 1,000 ML IV ONE (09:40)
[2020-03-25 09:44] LABS: Magnesium 0.6 mg/dL (1.6-2.3)
[2020-03-25] MEDS ORDERED: NALOXONE 0.4 MG/ML 1 ML VIAL IV PRN (10:25)
[2020-03-25] MEDS: MAGNESIUM SULFATE-D5W PMX 1 GM in DEXTROSE/WATER 1 100ML.BAG IVPB SCH ×4 (11:06→17:58)
--- NOTE | 2020-03-25 11:28 | XR ---
EXAMINATION TYPE: XR chest 1V portable DATE OF EXAM: 03/25/2020 COMPARISON: 03/22/2020 HISTORY: dysrhythmia TECHNIQUE: Single frontal view of the chest is obtained. FINDINGS: There is no focal air space opacity, pleural effusion, or pneumothorax seen. The cardiac silhouette size is within normal limits. The osseous structures are intact. Mild cardiomegaly. IMPRESSION: 1. Mild cardiomegaly.
[2020-03-25 14:28] LABS: ALT 56 U/L (4-34); AST 195 U/L (14-36)
[2020-03-25 16:47] LABS: ALT 49 U/L (4-34); AST 202 U/L (14-36); African American GFR (CKD) >90 (>60 ml/min/1.73 sqM); Albumin 3.7 g/dL (3.5-5.0); Alkaline Phosphatase 195 U/L (38-126); Anion Gap 13 mmol/L; Blood Urea Nitrogen 5 mg/dL (7-17); Calcium 7.6 mg/dL (8.4-10.2); Carbon Dioxide 27 mmol/L (22-30); Chloride 91 mmol/L (98-107); Glucose 103 mg/dL (74-99); Non-African American GFR(CKD) >90 (>60 ml/min/1.73 sqM); Potassium 2.9 mmol/L (3.5-5.1); Sodium 131 mmol/L (137-145); Total Bilirubin 4.2 mg/dL (0.2-1.3); Total Protein 6.5 g/dL (6.3-8.2)
[2020-03-25] MEDS ORDERED: WARFARIN 5 MG TAB PO SCH (18:00)
--- NOTE | 2020-03-25 18:03 | HP ---
HISTORY AND PHYSICAL CHIEF COMPLAINT: Shortness of breath, rapid heart rate. HISTORY OF PRESENT ILLNESS: This is another admission for this young lady who continues to have difficulty which is largely related to her excessive consumption of alcohol and noncompliance. We have been trying to encourage her to obtain appropriate treatment for her alcoholism, with little success. REVIEW OF SYSTEMS: She came in because of rapid heart beating. She has had no chest pain, syncope, etc. She has been short of breath. Past medical history, family history, and personal and social histories are all otherwise unremarkable and unchanged. She denies drinking. PHYSICAL EXAMINATION: Blood pressure is 138/100 with a pulse of 150, respirations of 35, and she is afebrile. In general she appeared to be somewhat dyspneic. She was in no acute distress. Head, ears, eyes, nose, mouth and throat were normal and the chest demonstrated occasional and scattered rales. Cardiac exam demonstrated a rapid heart rate. The abdomen was soft and nontender. There were no masses. Extremities were normal. Neurologically she was intact. She is admitted to the hospital with the diagnoses: 1. Atrial fibrillation with rapid ventricular response. 2. 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 3. Chronic alcoholism. 4. Depression. PLAN: 1. Bed rest. 2. Cardiology consult. 3. [place] measures to control her heart rate. 4. Resume her usual medications, especially her Coumadin, until it is therapeutic. MMYAMINI / CARMENN: [id number] /
[2020-03-25] MEDS: PANTOPRAZOLE 40 MG TABLET PO SCH (19:33)
[2020-03-25] MEDS: LORazepam 1 MG TAB PO PRN (19:33)
[2020-03-25] MEDS: THIAMINE 100 MG TAB PO SCH (19:33)
[2020-03-25] MEDS: POTASSIUM CHLORIDE ER 20 MEQ TAB.ER PO SCH (21:24)
[2020-03-26] MEDS: THIAMINE 100 MG TAB PO SCH ×2 (05:55→17:59)
[2020-03-26] MEDS: LORazepam 1 MG TAB PO PRN ×3 (05:55→22:56)
[2020-03-26] MEDS: PANTOPRAZOLE 40 MG TABLET PO SCH ×2 (05:55→17:59)
[2020-03-26 07:12] LABS: INR 1.7 (<1.2); Prothrombin Time 16.9 sec (9.0-12.0)
[2020-03-26 07:19] LABS: African American GFR (CKD) >90 (>60 ml/min/1.73 sqM); Anion Gap 8 mmol/L; Blood Urea Nitrogen 4 mg/dL (7-17); Calcium 7.3 mg/dL (8.4-10.2); Carbon Dioxide 26 mmol/L (22-30); Chloride 101 mmol/L (98-107); Glucose 89 mg/dL (74-99); Non-African American GFR(CKD) >90 (>60 ml/min/1.73 sqM); Potassium 3.2 mmol/L (3.5-5.1); Sodium 135 mmol/L (137-145)
[2020-03-26] MEDS: METOPROLOL TARTRATE 50 MG TAB PO SCH (10:07)
[2020-03-26] MEDS: SPIRONOLACTONE 25 MG TAB PO SCH (10:08)
[2020-03-26] MEDS: ESCITALOPRAM 10 MG TAB PO SCH (10:08)
[2020-03-26] MEDS: LORATADINE 10 MG TAB PO SCH (10:08)
[2020-03-26] MEDS: POTASSIUM CHLORIDE ER 20 MEQ TAB.ER PO SCH ×4 (10:08→20:37)
[2020-03-26] MEDS: FUROSEMIDE 80 MG TAB PO SCH (10:08)
[2020-03-26] MEDS: DIGOXIN 125 MCG TAB PO SCH (10:09)
--- NOTE | 2020-03-26 12:53 | P.CRDCN ---
History of Present Illness Consult date: 03/25/20 Requesting physician: Rodney Wilson Consult reason: atrial fibrillation Chief complaint: Palpitations, heart rate History of present illness: This is a 34-year-old female with past medical history significant for congenital heart disease status post surgical repair at age 3 months for transposition of the great vessels, history of paroxysmal atrial fibrillation on long-term anticoagulation, hypertension, regular alcohol abuse, anemia. She follows regularly with Dr. H[facility] at [facility]. Has frequent readmissions to the hospital. She presented to the hospital on this admission with symptoms of heart racing, dizziness. Patient states that she th ought maybe her hemoglobin was low again because she felt so awful. Her EKG on presentation here showed atrial fibrillation with a rapid ventricular response, right bundle branch block pattern. Chest x-ray showed mild cardiomegaly. Let pressure on arrival here 106/60, heart rate 1:30 to 140, afebrile, 98% on room air. White blood cell count was normal, hemoglobin 13.7, platelet count 494. Her INR on admission 1.9, 1.7 this morning. Sodium 134 on admission, potassium 3.4, BUN 4, creatinine 0.6, her magnesium on admission to the hospital 0.6, AST 195, ALT 56, serum alcohol less than 10. Patient had been given and strict dose of metoprolol, by the time I had seen her in the emergency room, heart rate was under slightly better control. I replaced her magnesium. 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 History of Any Multi-Drug Resistant Organisms: ESBL Date of last positivie culture/infection: 02/25/17 ESBL-Klebsiella MDRO Source:: Urine Past Surgical History: No Surgical Hx Reported Additional Past Surgical History / Comment(s): open heart surg for transposition of great arteries, CARDIOVERTED FOR A- FIB twice Past Anesthesia/Blood Transfusion Reactions: No Reported Reaction Past Psychological History: Anxiety, Depression Additional Psychological History / Comment(s): Pt resides alone. She is employed. Smoking Status: Former smoker Past Alcohol Use History: Abuse, Occasional Additional Past Alcohol Use History / Comment(s): Pt started smoking in 2002 and quit in 2017. Pt states she used to be a heavy drinker, states she currently has 2-3 glasses of wine daily Past Drug Use History: None Reported - Past Family History Mother Family Medical History: No Reported History Additional Family Medical History / Comment(s): Mother is healthy Father Family Medical History: No Reported History Additional Family Medical History / Comment(s): Father is healthy Medications and Allergies Home Medications Medication Instructions Recorded Confirmed Type Digoxin [Digitek] 125 mcg PO DAILY 12/19/17 03/25/20 History Spironolactone [Aldactone] 25 mg PO DAILY 12/19/17 03/25/20 History Potassium Chloride [Klor-Con 20] 40 meq PO BID 03/19/19 03/25/20 History Loratadine [Claritin] 10 mg PO DAILY 11/04/19 03/25/20 History Pantoprazole [Protonix] 40 mg PO AC-BID #60 tablet. 11/10/19 03/25/20 Rx Thiamine [Vitamin B-1] 100 mg PO BID-W/MEALS #100 tab 02/13/20 03/25/20 Rx Metoprolol Tartrate [Lopressor] 200 mg PO DAILY 03/02/20 03/25/20 History Escitalopram [Lexapro] 10 mg PO DAILY 03/11/20 03/25/20 History Furosemide [Lasix] 80 mg PO DAILY 03/20/20 03/25/20 History Warfarin [Coumadin] 5 mg PO HS 03/20/20 03/25/20 History Allergies Allergy/AdvReac Type Severity Reaction Status Date / Time No Known Allergies Allergy Verified 03/25/20 09:27 Physical Exam Vitals: Vital Signs Temp Pulse Pulse Resp BP BP Pulse Ox 03/26/20 12:00 73 107/58 97 03/26/20 08:15 97.1 F L 90 16 110/66 100 03/26/20 04:00 98.3 F 100 16 106/64 98 03/26/20 00:00 97.5 F L 16 119/61 96 03/25/20 21:00 95 28 H 98/71 97 03/25/20 20:30 92 17 117/79 98 03/25/20 20:00 86 24 111/78 97 03/25/20 19:30 91 39 H 113/74 97 03/25/20 19:00 87 11 L 97/75 98 03/25/20 18:30 82 25 H 102/70 95 03/25/20 18:00 89 24 110/73 96 03/25/20 17:30 94 11 L 111/62 93 L 03/25/20 17:00 85 23 106/62 97 03/25/20 16:30 91 21 107/69 97 03/25/20 16:00 89 20 112/76 97 03/25/20 15:30 92 41 H 108/69 99 03/25/20 15:00 87 24 112/65 99 03/25/20 14:30 83 12 98/65 99 03/25/20 14:00 78 20 98/71 99 03/25/20 13:30 80 23 93/78 98 03/25/20 13:00 81 28 H 103/69 100 Intake and Output 03/25/20 03/26/20 03/26/20 22:59 06:59 14:59 Intake Total 240 Balance 240 Intake: Oral 240 Other: Voiding Method Toilet Toilet # Voids 1 2 Weight 56.7 kg 57.2 kg PHYSICAL EXAMINATION: GENERAL: 34-year-old female in no acute distress at the time of my examination HEENT: Head is atraumatic, normocephalic. Pupils equal, round. Sclera anicteric. Conjunctiva are clear. Mucous membranes of the mouth are moist. Neck is supple. There is no elevated jugular venous pressure. No carotid bruit is heard. HEART EXAMINATION: S1 and S2 irregularly irregular a systolic ejection murmur heard CHEST EXAMINATION: Lungs are clear to auscultation and precussion. No chest wall tenderness is noted on palpation or with deep breathing. ABDOMEN: Soft, nontender. Bowel sounds are heard. No organomegaly noted. EXTREMITIES: 2+ peripheral pulses with no evidence of peripheral edema and no calf tenderness noted. NEUROLOGIC patient is awake, alert and oriented 3 . . Results 03/25/20 09:11 03/26/20 06:17 Cardiac Enzymes 03/25/20 03/25/20 Range/Units 10:18 16:11 AST 195 H 202 H (14-36) U/L Coagulation 03/26/20 Range/Units 06:17 PT 16.9 H (9.0-12.0) sec Comprehensive Metabolic Panel 03/25/20 03/25/2020 Range/Units 10:18 16:11 06:17 Sodium 131 L 135 L (137-145) mmol/L Potassium 2.9 L 3.2 L (3.5-5.1) mmol/L Chloride 91 L 101 (98-107) mmol/L Carbon Dioxide 27 26 (22-30) mmol/L BUN 5 L 4 L (7-17) mg/dL Creatinine 0.53 0.48 L (0.52-1.04) mg/dL Glucose 103 H 89 (74-99) mg/dL Calcium 7.6 L 7.3 L (8.4-10.2) mg/dL AST 195 H 202 H (14-36) U/L ALT 56 H 49 H (4-34) U/L Alkaline Phosphatase 195 H (38-126) U/L Total Protein 6.5 (6.3-8.2) g/dL Albumin 3.7 (3.5-5.0) g/dL Current Medications Generic Name Dose Route Start Last Admin Trade Name Freq PRN Reason Stop Dose Admin Acetaminophen 650 mg 03/25/20 10:25 Tylenol Tab PO Q6HR PRN Mild Pain or Fever > 100.5 Digoxin 125 mcg 03/26/20 09:00 03/26/20 10:09 Lanoxin PO 125 mcg DAILY MICHAEL Administration Escitalopram Oxalate 10 mg 03/26/20 09:00 03/26/20 10:08 Lexapro PO 10 mg DAILY MICHAEL Administration Furosemide 80 mg 03/26/20 09:00 03/26/20 10:08 Lasix PO 80 mg DAILY MICHAEL Administration Loratadine 10 mg 03/26/20 09:00 03/26/20 10:08 Claritin PO 10 mg DAILY MICHAEL Administration Lorazepam 1 mg 03/25/20 15:31 03/26/20 05:55 Ativan PO 1 mg TID PRN Administration Anxiety Metoprolol Tartrate 200 mg 03/26/20 09:00 03/26/20 10:07 Lopressor PO 200 mg DAILY MICHAEL Administration Naloxone HCl 0.2 mg 03/25/20 10:25 Narcan IV Q2M PRN Opioid Reversal Pantoprazole Sodium 40 mg 03/25/20 17:30 03/26/20 05:55 Protonix PO 40 mg AC-BID MICHAEL Administration Potassium Chloride 40 meq 03/25/20 21:00 03/26/20 10:08 K-Dur 20 PO 40 meq BID MICHAEL Administration Spironolactone 25 mg 03/26/20 09:00 03/26/20 10:08 Aldactone PO 25 mg DAILY MICHAEL Administration Thiamine HCl 100 mg 03/25/20 17:30 03/26/20 05:55 Vitamin B-1 PO 100 mg BID-W/MEALS MICHAEL Administration Warfarin Sodium 5 mg 03/25/20 18:00 03/25/20 21:24 Coumadin PO 5 mg DAILY@1800 MICHAEL Administration Intake and Output 03/25/20 03/26/20 03/26/20 22:59 06:59 14:59 Intake Total 240 Balance 240 Intake: Oral 240 Other: Voiding Method Toilet Toilet # Voids 1 2 Weight 56.7 kg 57.2 kg 03/25/20 09:11 03/26/20 06:17 EKG Interpretations (text) EKG shows atrial fibrillation with a rapid ventricular response, right bundle branch block pattern. Assessment and Plan Plan: Assessment and plan #1 atrial fibrillation with rapid ventricular response, paroxysmal, on Coumadin for anticoagulation, INR subtherapeutic on admission. #2 congenital heart disease, status post surgical repair at the age of 3 months for a transposition of the great vessels #3 EtOH abuse #4 hypertension #5 anemia with GI bleed in January of this year #6 pancreatitis #7 hypomagnesemia #8 hypokalemia Plan We will replace the patient's potassium and magnesium. Continue metoprolol 200 mg daily, Aldactone 25 mg daily, Lanoxin 0.125 mg daily, Coumadin 5 mg daily. Monitor INR daily to maintain between 2 and 2.5. The most recent echocardiogram with Doppler study was performed in January of this year which revealed an ejection fraction of 45-50%. Moderate aortic regurg, moderate to severe tricuspid regurg and severe pulmonary hypertension. We will not need to repeat an echo on this admission. Check a TSH level. DNP note has been reviewed, I agree with a documented findings and plan of care. Patient was seen and examined.
--- NOTE | 2020-03-26 12:58 | P.PN ---
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 She follows regularly with Dr. Hanna at the [facility]. Has frequent readmissions to the hospital. She presented to the hospital on this admission with symptoms of heart racing, dizziness. Patient states that she thought maybe her hemoglobin was low again because she felt so awful. Her EKG on presentation here showed atrial fibrillation with a rapid ventricular response, right bundle branch block pattern. Chest x-ray showed mild cardiomegaly. Let pressure on arrival here 106/60, heart rate 1:30 to 140, afebrile, 98% on room air. White blood cell count was normal, hemoglobin 13.7, platelet count 494. Her INR on admission 1.9, 1.7 this morning. Sodium 134 on admission, potassium 3.4, BUN 4, creatinine 0.6, her magnesium on admission to the hospital 0.6, AST 195, ALT 56, serum alcohol less than 10. Patient had been given and strict dose of metoprolol, by the time I had seen her in the emergency room, heart rate was under slightly better control. I replaced her magnesium. 03/26/2020 Patient was seen and examined this morning, she states that she feels significantly better overall today, no longer has the significant pounding in her chest and her breathing is improved. This morning the patient is currently in a normal sinus rhythm. Blood pressure 108/58 with a heart rate in the 70s, 97% on room air. INR this morning 1.7. Sodium 135, potassium 3.2, BUN 4, creatinine 0.4. AST 202, ALT 49, alk phos 195. Objective - Vital Signs Vital signs: Vital Signs Temp 97.1 F L 03/26/20 08:15 Pulse 73 03/26/20 12:00 Resp 16 03/26/20 08:15 BP 107/58 03/26/20 12:00 Pulse Ox 97 03/26/20 12:00 Intake & Output 03/25/20 03/26/20 03/26/20 18:59 06:59 18:59 Intake Total 240 Balance 240 Weight 67.132 kg 57.2 kg Intake: Oral 240 Other: Voiding Method Toilet Toilet # Voids 1 2 - Exam PHYSICAL EXAMINATION: GENERAL: 34-year-old female in no acute distress at the time of my examination HEENT: Head is atraumatic, normocephalic. Pupils equal, round. Sclera anicteric. Conjunctiva are clear. Mucous membranes of the mouth are moist. Neck is supple. There is no elevated jugular venous pressure. No carotid bruit is heard. HEART EXAMINATION: S1 and S2 systolic ejection murmur heard CHEST EXAMINATION: Lungs are clear to auscultation and precussion. No chest wall tenderness is noted on palpation or with deep breathing. ABDOMEN: Soft, nontender. Bowel sounds are heard. No organomegaly noted. EXTREMITIES: 2+ peripheral pulses with no evidence of peripheral edema and no calf tenderness noted. NEUROLOGIC patient is awake, alert and oriented 3 . - Labs CBC & Chem 7: 03/25/20 09:11 03/26/20 06:17 Labs: Abnormal Lab Results - Last 24 Hours (Table) 03/25/20 03/25/20 03/26/20 Range/Units 10:18 16:11 06:17 PT 16.9 H (9.0-12.0) sec INR 1.7 H (<1.2) Sodium 131 L (137-145) mmol/L Potassium 2.9 L (3.5-5.1) mmol/L Chloride 91 L (98-107) mmol/L BUN 5 L (7-17) mg/dL Creatinine (0.52-1.04) mg/dL Glucose 103 H (74-99) mg/dL Calcium 7.6 L (8.4-10.2) mg/dL Total Bilirubin 4.2 H (0.2-1.3) mg/dL AST 195 H 202 H (14-36) U/L ALT 56 H 49 H (4-34) U/L Alkaline Phosphatase 195 H (38-126) U/L 03/26/20 Range/Units 06:17 PT (9.0-12.0) sec INR (<1.2) Sodium 135 L (137-145) mmol/L Potassium 3.2 L (3.5-5.1) mmol/L Chloride (98-107) mmol/L BUN 4 L (7-17) mg/dL Creatinine 0.48 L (0.52-1.04) mg/dL Glucose (74-99) mg/dL Calcium 7.3 L (8.4-10.2) mg/dL Total Bilirubin (0.2-1.3) mg/dL AST (14-36) U/L ALT (4-34) U/L Alkaline Phosphatase (38-126) U/L Assessment and Plan Plan: Assessment and plan #1 atrial fibrillation with rapid ventricular response, paroxysmal, on Coumadin for anticoagulation, INR subtherapeutic on admission. #2 congenital heart disease, status post surgical repair at the age of 3 months for a transposition of the great vessels #3 EtOH abuse #4 hypertension #5 anemia with GI bleed in January of this year #6 pancreatitis #7 hypomagnesemia #8 hypokalemia Plan We will replace the patient's potassium this morning, give Coumadin 7.5 today, check PT/INR in the morning. Magnesium 1.7 today, we will give one more dose of magnesium importance of EtOH cessation. DNP note has been reviewed, I agree with a documented findings and plan of care. Patient was seen and examined.
[2020-03-26] MEDS ORDERED: Potassium Replacement Protocol 1 EACH MISC MISCELLANE PRN (14:46)
[2020-03-26] MEDS: MAGNESIUM SULFATE-D5W PMX 1 GM in DEXTROSE/WATER 1 100ML.BAG IVPB SCH ×2 (14:56→16:33)
[2020-03-26] MEDS: ACETAMINOPHEN TAB 325 MG TAB PO PRN (17:58)
[2020-03-26] MEDS ORDERED: WARFARIN 7.5 MG TAB PO ONE (18:00)
--- NOTE | 2020-03-26 19:42 | PN ---
PROGRESS NOTE DATE OF SERVICE: 03/26/2020 CHIEF COMPLAINT: Rapid heart beating. HISTORY OF PRESENT ILLNESS: This lady is doing a little bit better. She is not having any nausea and her heart rate has slowed. She denies any chest pain, etc. She is being evaluated by Cardiology. Her potassium is low and this will be increased. PHYSICAL EXAMINATION: Chest is clear. Cardiac exam demonstrates atrial fibrillation with a rate of around 100. Abdomen is soft, nontender. Extremities are normal. IMPRESSION: 1. Atrial fibrillation with rapid ventricular response. 2. Congenital heart disease. 3. Hypokalemia. PLAN: 1. Await further recommendations from cardiology. 2. Increase her potassium. 3. Increase activity. MMODL / IJN: [id number] /
[2020-03-27] MEDS: PANTOPRAZOLE 40 MG TABLET PO SCH ×2 (06:17→16:51)
[2020-03-27] MEDS: LORazepam 1 MG TAB PO PRN ×3 (06:17→22:54)
[2020-03-27] MEDS: THIAMINE 100 MG TAB PO SCH ×2 (06:18→16:51)
[2020-03-27 07:14] LABS: Anisocytosis Moderate; HCT 31.7 % (34.0-46.0); Hypochromasia Marked; MCH 26.1 pg (25.0-35.0); MCHC 30.2 g/dL (31.0-37.0); MCV 86.6 fL (80.0-100.0); Microcytosis Slight; Platelet Count 255 k/uL (150-450); RBC 3.66 m/uL (3.80-5.40); RDW 22.2 % (11.5-15.5); WBC 6.5 k/uL (3.8-10.6)
[2020-03-27 07:23] LABS: HGB 9.6 gm/dL (11.4-16.0)
[2020-03-27 07:25] LABS: African American GFR (CKD) >90 (>60 ml/min/1.73 sqM); Anion Gap 6 mmol/L; Blood Urea Nitrogen 5 mg/dL (7-17); Calcium 8.5 mg/dL (8.4-10.2); Carbon Dioxide 23 mmol/L (22-30); Chloride 106 mmol/L (98-107); Glucose 94 mg/dL (74-99); Magnesium 1.9 mg/dL (1.6-2.3); Non-African American GFR(CKD) >90 (>60 ml/min/1.73 sqM); Potassium 4.4 mmol/L (3.5-5.1); Sodium 135 mmol/L (137-145)
[2020-03-27] MEDS: ESCITALOPRAM 10 MG TAB PO SCH (09:02)
[2020-03-27] MEDS: DIGOXIN 125 MCG TAB PO SCH (09:03)
[2020-03-27] MEDS: LORATADINE 10 MG TAB PO SCH (09:03)
[2020-03-27] MEDS: SPIRONOLACTONE 25 MG TAB PO SCH (09:03)
[2020-03-27] MEDS: FUROSEMIDE 80 MG TAB PO SCH (09:03)
[2020-03-27] MEDS: POTASSIUM CHLORIDE ER 20 MEQ TAB.ER PO SCH ×2 (09:03→20:49)
[2020-03-27] MEDS: ACETAMINOPHEN TAB 325 MG TAB PO PRN ×2 (09:04→16:55)
[2020-03-27] MEDS: METOPROLOL TARTRATE 50 MG TAB PO SCH (09:13)
[2020-03-27 10:23] LABS: Prothrombin Time 28.9 sec (9.0-12.0)
--- NOTE | 2020-03-27 11:41 | P.PN ---
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 She follows regularly with Dr. Hanna at the [facility]. Has frequent readmissions to the hospital. She presented to the hospital on this admission with symptoms of heart racing, dizziness. Patient states that she thought maybe her hemoglobin was low again because she felt so awful. Her EKG on presentation here showed atrial fibrillation with a rapid ventricular response, right bundle branch block pattern. Chest x-ray showed mild cardiomegaly. Let pressure on arrival here 106/60, heart rate 1:30 to 140, afebrile, 98% on room air. White blood cell count was normal, hemoglobin 13.7, platelet count 494. Her INR on admission 1.9, 1.7 this morning. Sodium 134 on admission, potassium 3.4, BUN 4, creatinine 0.6, her magnesium on admission to the hospital 0.6, AST 195, ALT 56, serum alcohol less than 10. Patient had been given and strict dose of metoprolol, by the time I had seen her in the emergency room, heart rate was under slightly better control. I replaced her magnesium. 03/26/2020 Patient was seen and examined this morning, she states that she feels significantly better overall today, no longer has the significant pounding in her chest and her breathing is improved. This morning the patient is currently in a normal sinus rhythm. Blood pressure 108/58 with a heart rate in the 70s, 97% on room air. INR this morning 1.7. Sodium 135, potassium 3.2, BUN 4, creatinine 0.4. AST 202, ALT 49, alk phos 195. 03/27/2020 Patient seen and examined this morning, sleepy but overall states that she feels well. Her heart rate this morning is in the 70s. Hemoglobin today is 9.6 which is down from 13.7 on admission. Her INR 3.0, sodium 135, potassium 4.4, BUN 5, creatinine 0.5, magnesium 1.9. Objective - Vital Signs Vital signs: Vital Signs Temp 96.9 F L 03/27/20 08:58 Pulse 70 03/27/20 08:58 Resp 16 07/01/20 04:00 BP 102/58 03/27/20 08:58 Pulse Ox 99 03/27/20 08:58 Intake & Output 03/26/20 03/27/20 03/27/20 18:59 06:59 18:59 Intake Total 702 120 Balance 702 120 Weight 57.1 kg Intake: Oral 702 120 Other: Voiding Method Toilet # Voids 1 1 1 - Exam PHYSICAL EXAMINATION: GENERAL: 34-year-old female in no acute distress at the time of my examination HEENT: Head is atraumatic, normocephalic. Pupils equal, round. Sclera anicteric. Conjunctiva are clear. Mucous membranes of the mouth are moist. Neck is supple. There is no elevated jugular venous pressure. No carotid bruit is heard. HEART EXAMINATION: S1 and S2 systolic ejection murmur heard CHEST EXAMINATION: Lungs are clear to auscultation and precussion. No chest wall tenderness is noted on palpation or with deep breathing. ABDOMEN: Soft, nontender. Bowel sounds are heard. No organomegaly noted. EXTREMITIES: 2+ peripheral pulses with no evidence of peripheral edema and no calf tenderness noted. NEUROLOGIC patient is awake, alert and oriented 3 . - Labs CBC & Chem 7: 03/27/20 06:43 03/27/20 06:43 Labs: Abnormal Lab Results - Last 24 Hours (Table) 03/26/20 03/27/20 03/27/20 Range/Units 12:43 06:43 06:43 RBC 3.66 L (3.80-5.40) m/uL Hgb 9.6 L D (11.4-16.0) gm/dL Hct 31.7 L (34.0-46.0) % MCHC 30.2 L (31.0-37.0) g/dL RDW 22.2 H (11.5-15.5) % PT (9.0-12.0) sec INR (<1.2) Sodium 135 L (137-145) mmol/L Potassium 3.4 L (3.5-5.1) mmol/L BUN 5 L (7-17) mg/dL 03/27/20 Range/Units 09:35 RBC (3.80-5.40) m/uL Hgb (11.4-16.0) gm/dL Hct (34.0-46.0) % MCHC (31.0-37.0) g/dL RDW (11.5-15.5) % PT 28.9 H (9.0-12.0) sec INR 3.0 H (<1.2) Sodium (137-145) mmol/L Potassium (3.5-5.1) mmol/L BUN (7-17) mg/dL Assessment and Plan Plan: Assessment and plan #1 atrial fibrillation with rapid ventricular response, paroxysmal, on Coumadin for anticoagulation, INR subtherapeutic on admission. #2 congenital heart disease, status post surgical repair at the age of 3 months for a transposition of the great vessels #3 EtOH abuse #4 hypertension #5 anemia with GI bleed in January of this year #6 pancreatitis #7 hypomagnesemia #8 hypokalemia Plan We will hold the Coumadin today. Check PT/INR in the morning. DNP note has been reviewed, I agree with a documented findings and plan of care. Patient was seen and examined.
--- NOTE | 2020-03-27 15:10 | PN ---
PROGRESS NOTE DATE OF SERVICE: 03/27/2020. CHIEF COMPLAINT: Atrial fibrillation with RVR. HISTORY OF PRESENT ILLNESS: This lady is doing well. Apparently, she has converted back to sinus rhythm. Plan was that she would go home today but her hemoglobin dropped from 13 to 9. She had recent a problem with some GI blood loss. She has had no melena, hematochezia, hematemesis, etc. REVIEW OF SYSTEMS: She has had no other complaints. She has had no abdominal pain, dizziness, shortness of breath, chest pain, etc. PHYSICAL EXAMINATION: Chest is clear and cardiac exam is unremarkable and sounds like she is in sinus rhythm. Abdomen is soft, nontender without any visceromegaly or masses. Bowel sounds are present. IMPRESSION: 1. Atrial fibrillation with RVR. 2. Congenital heart disease. 3. Drop in hemoglobin. 4. Possible gastrointestinal bleed. PLAN: 1. Cancel discharge. 2. Start watching hemoglobin daily. MMODL / IJN: [id number] /
[2020-03-28] MEDS: THIAMINE 100 MG TAB PO SCH ×2 (06:25→17:50)
[2020-03-28] MEDS: PANTOPRAZOLE 40 MG TABLET PO SCH ×2 (06:25→17:50)
[2020-03-28 08:02] LABS: Anisocytosis Moderate; Basophils # (A) 0.1 k/uL (0-0.2); Basophils % (A) 2 %; Eosinophils # (A) 0.3 k/uL (0-0.7); Eosinophils % (A) 5 %; HCT 34.3 % (34.0-46.0); HGB 10.3 gm/dL (11.4-16.0); Hypochromasia Marked; Lymphocytes # (A) 1.4 k/uL (1.0-4.8); Lymphocytes % (A) 26 %; MCH 27.2 pg (25.0-35.0); MCHC 29.9 g/dL (31.0-37.0); Macrocytosis Slight; Mean Platelet Volume 8.4; Monocytes # (A) 0.3 k/uL (0-1.0); Monocytes % (A) 6 %; Neutrophils # (A) 3.2 k/uL (1.3-7.7); Neutrophils % (A) 59 %; Platelet Count 227 k/uL (150-450); RBC 3.77 m/uL (3.80-5.40); RDW 21.5 % (11.5-15.5); WBC 5.5 k/uL (3.8-10.6)
[2020-03-28 08:10] LABS: Prothrombin Time 53.6 sec (9.0-12.0)
[2020-03-28 08:20] LABS: INR 5.3 (<1.2)
[2020-03-28] MEDS: ESCITALOPRAM 10 MG TAB PO SCH (08:47)
[2020-03-28] MEDS: LORATADINE 10 MG TAB PO SCH (08:47)
[2020-03-28] MEDS: SPIRONOLACTONE 25 MG TAB PO SCH (08:47)
[2020-03-28] MEDS: POTASSIUM CHLORIDE ER 20 MEQ TAB.ER PO SCH ×2 (08:47→20:38)
[2020-03-28] MEDS: METOPROLOL TARTRATE 50 MG TAB PO SCH (08:47)
[2020-03-28] MEDS: FUROSEMIDE 80 MG TAB PO SCH (08:48)
[2020-03-28] MEDS: DIGOXIN 125 MCG TAB PO SCH (08:48)
[2020-03-28] MEDS: LORazepam 1 MG TAB PO PRN ×3 (08:48→23:37)
[2020-03-28 09:21] LABS: African American GFR (CKD) >90 (>60 ml/min/1.73 sqM); Anion Gap 7 mmol/L; Blood Urea Nitrogen 6 mg/dL (7-17); Calcium 8.6 mg/dL (8.4-10.2); Carbon Dioxide 23 mmol/L (22-30); Chloride 105 mmol/L (98-107); Glucose 92 mg/dL (74-99); Magnesium 1.4 mg/dL (1.6-2.3); Non-African American GFR(CKD) >90 (>60 ml/min/1.73 sqM); Potassium 4.2 mmol/L (3.5-5.1); Sodium 135 mmol/L (137-145)
[2020-03-28] MEDS: MAGNESIUM SULFATE-D5W PMX 1 GM in DEXTROSE/WATER 1 100ML.BAG IVPB SCH ×4 (12:05→17:49)
--- NOTE | 2020-03-28 12:06 | P.PN ---
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 She follows regularly with Dr. Hanna at the [facility]. Has frequent readmissions to the hospital. She presented to the hospital on this admission with symptoms of heart racing, dizziness. Patient states that she thought maybe her hemoglobin was low again because she felt so awful. Her EKG on presentation here showed atrial fibrillation with a rapid ventricular response, right bundle branch block pattern. Chest x-ray showed mild cardiomegaly. Let pressure on arrival here 106/60, heart rate 1:30 to 140, afebrile, 98% on room air. White blood cell count was normal, hemoglobin 13.7, platelet count 494. Her INR on admission 1.9, 1.7 this morning. Sodium 134 on admission, potassium 3.4, BUN 4, creatinine 0.6, her magnesium on admission to the hospital 0.6, AST 195, ALT 56, serum alcohol less than 10. Patient had been given and strict dose of metoprolol, by the time I had seen her in the emergency room, heart rate was under slightly better control. I replaced her magnesium. 03/26/2020 Patient was seen and examined this morning, she states that she feels significantly better overall today, no longer has the significant pounding in her chest and her breathing is improved. This morning the patient is currently in a normal sinus rhythm. Blood pressure 108/58 with a heart rate in the 70s, 97% on room air. INR this morning 1.7. Sodium 135, potassium 3.2, BUN 4, creatinine 0.4. AST 202, ALT 49, alk phos 195. 03/27/2020 Patient seen and examined this morning, sleepy but overall states that she feels well. Her heart rate this morning is in the 70s. Hemoglobin today is 9.6 which is down from 13.7 on admission. Her INR 3.0, sodium 135, potassium 4.4, BUN 5, creatinine 0.5, magnesium 1.9. 03/28/2020 Patient was seen and examined this morning, overall doing much better. Normal sinus rhythm this morning. Blood pressure 106/60 with a heart rate in the 60s, 98% on room air. White blood cell count 5.5, hemoglobin 10.3, platelet count 227, INR today is 5.3. Sodium 135, potassium 4.2, BUN 6, creatinine 0.5. Objective - Vital Signs Vital signs: Vital Signs Temp 96.9 F L 03/28/20 09:34 Pulse 60 03/28/20 09:34 Resp 16 03/28/20 04:28 BP 157/66 03/28/20 09:34 Pulse Ox 100 03/28/20 09:34 Intake & Output 03/27/20 03/28/20 03/28/20 18:59 06:59 18:59 Intake Total 600 320 240 Output Total 100 Balance 600 220 240 Weight 57.4 kg Intake: Oral 600 320 240 Output: Urine 100 Other: # Voids 1 1 # Bowel Movements 1 - Exam PHYSICAL EXAMINATION: GENERAL: 34-year-old female in no acute distress at the time of my examination HEENT: Head is atraumatic, normocephalic. Pupils equal, round. Sclera anicteric. Conjunctiva are clear. Mucous membranes of the mouth are moist. Neck is supple. There is no elevated jugular venous pressure. No carotid brui t is heard. HEART EXAMINATION: S1 and S2 systolic ejection murmur heard CHEST EXAMINATION: Lungs are clear to auscultation and precussion. No chest wall tenderness is noted on palpation or with deep breathing. ABDOMEN: Soft, nontender. Bowel sounds are heard. No organomegaly noted. EXTREMITIES: 2+ peripheral pulses with no evidence of peripheral edema and no calf tenderness noted. NEUROLOGIC patient is awake, alert and oriented 3 . - Labs CBC & Chem 7: 03/28/20 07:32 03/28/20 07:32 Labs: Abnormal Lab Results - Last 24 Hours (Table) 03/28/20 03/28/20 03/28/20 Range/Units 07:32 07:32 07:32 RBC 3.77 L (3.80-5.40) m/uL Hgb 10.3 L (11.4-16.0) gm/dL MCHC 29.9 L (31.0-37.0) g/dL RDW 21.5 H (11.5-15.5) % PT 53.6 H (9.0-12.0) sec INR 5.3 H* (<1.2) Sodium 135 L (137-145) mmol/L BUN 6 L (7-17) mg/dL Creatinine 0.51 L (0.52-1.04) mg/dL Magnesium 1.4 L (1.6-2.3) mg/dL Assessment and Plan Plan: Assessment and plan #1 atrial fibrillation with rapid ventricular response, paroxysmal, on Coumadin for anticoagulation, INR subtherapeutic on admission. #2 congenital heart disease, status post surgical repair at the age of 3 months for a transposition of the great vessels #3 EtOH abuse #4 hypertension #5 anemia with GI bleed in January of this year #6 pancreatitis #7 hypomagnesemia #8 hypokalemia Plan We will hold the Coumadin today. Check CMP in the morning. Check PT/INR in the morning. 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 Patient may need to be considered for possible ablation procedure down the road. We will continue to monitor the patient for 24 hours. DNP note has been reviewed, I agree with a documented findings and plan of care. Patient was seen and examined.
--- NOTE | 2020-03-28 16:55 | CDI ---
Documentation Clarification Form Date: 03/28/2020 04:44:48 PM From: Munira Flores RN, CCDS Admit Date: 03/25/2020 10:25:00 AM Patient Name: Anita Wilcox Visit Number: [id number] ATTENTION: The Clinical Documentation Specialists (CDI) and [facility] Coding Staff appreciate your assistance in clarifying documentation. Please respond to the clarification below the line at the bottom and electronically sign. The CDI & [facility] Coding staff will review the response and follow-up if needed. Please note: Queries are made part of the Legal Health Record. If you have any questions, please contact the author of this message via ITS. Dr. Rodney Wilson Anemia is documented and requires further specificity. History/Risk Factors: Anemia with GIB, Atrial Fib, Chronic ETOH Clinical indicators: Cardiology Consult: "anemia with GI bleed in January of this year." 03/27 Attending Progress Note: "Plan was that she would go home today but her hemoglobin dropped from 13 to 9.IMPRESSION: Drop in hemoglobin. PLAN: Start watching hemoglobin daily. Hgb: 13.7/9.6/10.3 Hct: 43.2/31.7/10.3 Treatment: Labs AM Daily In order to capture the severity of condition, please clarify the type of anemia and etiology if known:. Acute blood loss anemia Acute on chronic blood loss anemia Chronic blood loss anemia Iron deficiency anemia Nutritional anemia Anemia of chronic disease Unable to determine Other, please specify (Last Form Revision: November 2019) MTDD
--- NOTE | 2020-03-28 17:04 | CDI ---
Documentation Clarification Form Date: 03/28/2020 04:57:47 PM From: Munira Flores RN, CCDS Admit Date: 03/25/2020 10:25:00 AM Patient Name: Anita Wilcox Visit Number: [id number] ATTENTION: The Clinical Documentation Specialists (CDI) and [facility] Coding Staff appreciate your assistance in clarifying documentation. Please respond to the clarification below the line at the bottom and electronically sign. The CDI & [facility] Coding staff will review the response and follow-up if needed. Please note: Queries are made part of the Legal Health Record. If you have any questions, please contact the author of this message via ITS. Dr. Rodney Wilson CHF is documented in the PMH and requires further specificity. History/Risk Factors: CHF, Atrial Fib, HTN, Transposition of great vessels surgically corrected at age 3 months, ETOH abuse, Anemia Clinical Indicators: 03/25/2020 Admission VS/Pulse OX: Temp 97.4, HR 67, RR 18, B/P 105/73, spo2 100% 2L NC BNP: not checked 02/04 Echocardiogram Results: EF 45-50%, moderate concentric LVH 03/25/2020 Chest X Ray: mild Cardiomegaly Treatment: Digoxin 125mcg PO QD Lasix 80 mg PO QD Lopressor 200 mg PO QD Aldactone 25 mg PO QD 03/25 1L 0.9% NS IVF Bolus In your professional opinion, can you please clarify the acuity and type of CHF if known? Systolic Heart Failure: Acute Chronic Acute on Chronic Systolic & Diastolic Heart Failure: Acute Chronic Acute on Chronic Heart Failure Unable to Determine Other, please specify (Last Revision: December 2017) MTDD
--- NOTE | 2020-03-28 19:38 | PN ---
PROGRESS NOTE DATE OF SERVICE: 03/28/2020 CHIEF COMPLAINT: Atrial fibrillation. HISTORY OF PRESENT ILLNESS: This lady has been doing fairly well, but her INR has slowed up out of the therapeutic range. Her magnesium has been low. She is being followed by Cardiology. PHYSICAL EXAMINATION: Chest is clear. Cardiac exam is unchanged. The murmurs are unchanged. Abdomen is soft, nontender. IMPRESSION: 1. Atrial fibrillation with rapid ventricular response, resolved. 2. Congenital heart disease. 3. Alcoholism. 4. Extended INR. 5. Hypomagnesemia. PLAN: Repeat laboratory studies tomorrow and, hopefully, be able to discharge. MMODL / IJN: [id number] /
[2020-03-29] MEDS: PANTOPRAZOLE 40 MG TABLET PO SCH (06:25)
[2020-03-29] MEDS: THIAMINE 100 MG TAB PO SCH (06:26)
--- NOTE | 2020-03-29 08:06 | PN ---
PROGRESS NOTE Acute and chronic blood loss anemia. Unable to determine. MMODL / IJN: [id number] /
[2020-03-29] MEDS: SPIRONOLACTONE 25 MG TAB PO SCH (09:03)
[2020-03-29] MEDS: METOPROLOL TARTRATE 50 MG TAB PO SCH (09:03)
[2020-03-29] MEDS: ESCITALOPRAM 10 MG TAB PO SCH (09:03)
[2020-03-29] MEDS: DIGOXIN 125 MCG TAB PO SCH (09:03)
[2020-03-29] MEDS: LORATADINE 10 MG TAB PO SCH (09:03)
[2020-03-29] MEDS: FUROSEMIDE 80 MG TAB PO SCH (09:03)
[2020-03-29] MEDS: POTASSIUM CHLORIDE ER 20 MEQ TAB.ER PO SCH (09:03)
[2020-03-29] MEDS: LORazepam 1 MG TAB PO PRN (09:10)
[2020-03-29 10:20] LABS: Anisocytosis Moderate; HCT 34.6 % (34.0-46.0); HGB 10.5 gm/dL (11.4-16.0); Hypochromasia Marked; MCH 26.5 pg (25.0-35.0); MCHC 30.3 g/dL (31.0-37.0); MCV 87.6 fL (80.0-100.0); Mean Platelet Volume 8.7; Microcytosis Slight; Platelet Count 238 k/uL (150-450); RBC 3.95 m/uL (3.80-5.40); WBC 6.2 k/uL (3.8-10.6)
[2020-03-29 10:25] LABS: INR 2.7 (<1.2); Prothrombin Time 26.1 sec (9.0-12.0)
[2020-03-29 10:37] LABS: ALT 40 U/L (4-34); AST 90 U/L (14-36); African American GFR (CKD) >90 (>60 ml/min/1.73 sqM); Albumin 3.9 g/dL (3.5-5.0); Alkaline Phosphatase 142 U/L (38-126); Anion Gap 11 mmol/L; Blood Urea Nitrogen 8 mg/dL (7-17); Calcium 9.2 mg/dL (8.4-10.2); Carbon Dioxide 22 mmol/L (22-30); Chloride 102 mmol/L (98-107); Glucose 110 mg/dL (74-99); Non-African American GFR(CKD) >90 (>60 ml/min/1.73 sqM); Sodium 135 mmol/L (137-145); Total Bilirubin 2.1 mg/dL (0.2-1.3); Total Protein 6.9 g/dL (6.3-8.2)
[2020-03-29 11:00] VITALS: RESP 18; TEMP 97.9
--- NOTE | 2020-03-29 12:16 | P.PN ---
Subjective Progress Note Date: 03/29/20 This is a 34-year-old female with history of transposition of great vessels for which she had surgery at [facility]. Patient has been following with poultry field service technician at [facility]. Patient is admitted here with paroxysmal/persistent atrial fibrillation. Patient is back in sinus rhythm. Patient is feeling better. Her INR is high. If the INR is back to therapeutic range, patient could be discharged home. Patient will have follow-up with her own poultry field service technician. She may be considered for ablation Objective - Vital Signs Vital signs: Vital Signs Temp 97.9 F 03/29/20 08:00 Pulse 95 03/29/20 08:00 Resp 18 03/29/20 08:00 BP 106/61 03/29/20 08:00 Pulse Ox 98 03/29/20 04:00 Intake & Output 03/28/20 03/29/20 03/29/20 18:59 06:59 18:59 Intake Total 960 640 Balance 960 640 Weight 57.2 kg Intake: Oral 960 640 Other: Voiding Method Toilet # Voids 2 2 1 # Bowel Movements 1 - Exam GENERAL EXAM: Patient is alert and oriented and doesn't appear to be in any acute distress HEENT: Normocephalic. Normal reaction of pupils, equal size, normal range of extraocular motion. No erythema or exudates in the throat. NECK: No masses, no nuchal rigidity. CHEST: No chest wall deformity. LUNGS: Equal air entry with no crackles or wheeze. HEART: S1 and S2 normal with no audible mumurs or gallops. Regular rhythm, femorals equal on both sides.. ABDOMEN: No hepatosplenomegaly, normal bowel sounds, no guarding or rigidity. SKIN: No rashes CENTRAL NERVOUS SYSTEM: No focal deficits. EXTREMITIES: No cyanosis, clubbing or edema. - Labs CBC & Chem 7: 03/29/20 09:59 03/29/20 09:59 Labs: Abnormal Lab Results - Last 24 Hours (Table) 03/29/20 03/29/20 03/29/20 Range/Units 09:59 09:59 09:59 Hgb 10.5 L (11.4-16.0) gm/dL MCHC 30.3 L (31.0-37.0) g/dL RDW 22.0 H (11.5-15.5) % PT 26.1 H (9.0-12.0) sec INR 2.7 H (<1.2) Sodium 135 L (137-145) mmol/L Glucose 110 H (74-99) mg/dL Total Bilirubin 2.1 H (0.2-1.3) mg/dL AST 90 H (14-36) U/L ALT 40 H (4-34) U/L Alkaline Phosphatase 142 H (38-126) U/L Assessment and Plan (1) History of transposition of great vessels Current Visit: Yes Status: Acute Code(s): Z87.74 - PERSONAL HISTORY OF CONGENITAL MALFORM OF HEART AND CIRC SYS SNOMED Code(s): 053833889 (2) Atrial fibrillation with RVR Current Visit: Yes Status: Acute Code(s): I48.91 - UNSPECIFIED ATRIAL FIBRILLATION SNOMED Code(s): 100189486040596 Plan: Patient is back in sinus rhythm. Patient could be discharged home. Follow-up with her own poultry field service technician
[2020-03-29 12:26] VITALS: BP 104/54; PULSE 59
--- NOTE | 2020-04-01 23:14 | DS ---
DISCHARGE SUMMARY CHIEF COMPLAINT: Rapid heart beating. HISTORY OF PRESENT ILLNESS AND PHYSICAL EXAMINATION: Details of this lady's history and physical can be found in the initial workup. LABORATORY STUDIES: While she was in the hospital she had laboratory studies, details of which can be found in the laboratory section of her chart. COURSE IN THE HOSPITAL: After admission she was placed on bedrest, started on intravenous fluids and was seen by Cardiology. Her heart rate did slow and she eventually converted back to normal sinus rhythm. She was stable, and it was felt that she could be discharged. She will go home on her usual activity, diet and medication and 4 mg of Coumadin. She will be seen in the office in several days. FINAL DIAGNOSES: 1. Atrial fibrillation with rapid ventricular response. 2. Congenital heart disease. 3. Chronic alcoholism. OPERATIONS: None. CONSULTATION: Cardiology. She is improved. JOSE ANGEL / CAROLYN: [id number] /
== END 2020-03-29 14:36 | disposition home or self-care (01) | DRG 308 ==
LOC: EC 08:00 → 3SCARD 10:25 → OBSVTOIN 10:25 → 3SCARD 22:08
PROVIDERS: ADMIT Family Medicine; ATTEND Family Medicine
DX: I48.19 Other persistent atrial fibrillation (principal); K85.90 Acute pancreatitis without necrosis or infection, unspecified; D62 Acute posthemorrhagic anemia; Z11.59 Encounter for screening for other viral diseases; I27.29 Other secondary pulmonary hypertension; I08.2 Rheumatic disorders of both aortic and tricuspid valves; I50.9 Heart failure, unspecified; I11.0 Hypertensive heart disease with heart failure; F10.20 Alcohol dependence, uncomplicated; F32.9 Major depressive disorder, single episode, unspecified; E83.42 Hypomagnesemia; F41.9 Anxiety disorder, unspecified; F17.200 Nicotine dependence, unspecified, uncomplicated; I45.10 Unspecified right bundle-branch block; Y90.0 Blood alcohol level of less than 20 mg/100 ml; E87.6 Hypokalemia; Z79.899 Other long term (current) drug therapy; Z79.01 Long term (current) use of anticoagulants; Z87.74 Personal history of (corrected) congenital malformations of heart and circulatory system; Z91.19 Patient's noncompliance with other medical treatment and regimen; Z87.19 Personal history of other diseases of the digestive system
CPT/HCPCS: 36415; 71045; 80048; 80053; 80320; 82272; 82330; 83735; 84100; 84132; 84450; 84460; 84484; 85025; 85027; 85610; 85730; 86850; 86900; 86901; 93005; 96361; 96365; 96366; 96374; 96375; 99285

== ENCOUNTER 2020-04-06 07:29 | Inpatient (IN) | payer OTHER ==
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
[2020-04-06 08:00] LABS: Anisocytosis Moderate; Basophils # (A) 0.1 k/uL (0-0.2); Basophils % (A) 2 %; Eosinophils # (A) 0.1 k/uL (0-0.7); Eosinophils % (A) 1 %; HCT 36.4 % (34.0-46.0); HGB 11.5 gm/dL (11.4-16.0); Hypochromasia Slight; Lymphocytes # (A) 2.3 k/uL (1.0-4.8); Lymphocytes % (A) 26 %; MCH 24.5 pg (25.0-35.0); MCHC 31.6 g/dL (31.0-37.0); Mean Platelet Volume 7.7; Microcytosis Moderate; Monocytes # (A) 0.6 k/uL (0-1.0); Monocytes % (A) 7 %; Neutrophils # (A) 5.4 k/uL (1.3-7.7); Neutrophils % (A) 61 %; Poikilocytosis Slight; RDW 20.6 % (11.5-15.5); WBC 8.9 k/uL (3.8-10.6)
[2020-04-06 08:03] LABS: MCV 77.5 fL (80.0-100.0); Platelet Count 641 k/uL (150-450)
[2020-04-06 08:18] LABS: ALT 54 U/L (4-34); AST 138 U/L (14-36); African American GFR (CKD) >90 (>60 ml/min/1.73 sqM); Albumin 4.7 g/dL (3.5-5.0); Alkaline Phosphatase 157 U/L (38-126); Anion Gap 20 mmol/L; Blood Urea Nitrogen 7 mg/dL (7-17); Calcium 8.8 mg/dL (8.4-10.2); Carbon Dioxide 26 mmol/L (22-30); Chloride 85 mmol/L (98-107); Glucose 112 mg/dL (74-99); Non-African American GFR(CKD) >90 (>60 ml/min/1.73 sqM); Sodium 131 mmol/L (137-145); Total Protein 7.6 g/dL (6.3-8.2)
[2020-04-06 08:20] LABS: Alcohol 146 mg/dL
[2020-04-06 08:21] LABS: Potassium 2.6 mmol/L (3.5-5.1)
[2020-04-06 08:23] LABS: Partial Thromboplastin Time 43.6 sec (22.0-30.0)
[2020-04-06] MEDS ORDERED: POTASSIUM CHLORIDE ER 20 MEQ TAB.ER PO STA (08:23)
[2020-04-06] MEDS ORDERED: LORazepam 2 MG/ML INJ IV STA (08:23)
[2020-04-06 08:25] LABS: INR 7.7 (<1.2)
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
--- NOTE | 2020-04-06 08:29 | XR ---
EXAMINATION TYPE: XR chest 2V DATE OF EXAM: 04/06/2020 COMPARISON: 03/25/2020 HISTORY: Chest pain TECHNIQUE: Frontal and lateral views of the chest are obtained. FINDINGS: There is no focal air space opacity. No evidence for pneumothorax. No pleural effusion. Again noted is evidence of cardiomegaly. The osseous structures are grossly intact. IMPRESSION: 1. Continued cardiomegaly. Otherwise unremarkable study.
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
[2020-04-06] MEDS: MAGNESIUM SULFATE-D5W PMX 1 GM in DEXTROSE/WATER 1 100ML.BAG IVPB SCH ×2 (08:37→10:59)
[2020-04-06] MEDS ORDERED: NALOXONE 0.4 MG/ML 1 ML VIAL IV PRN (08:54)
[2020-04-06] MEDS ORDERED: LORazepam 2 MG/ML INJ IV PRN ×2 (08:56)
[2020-04-06] MEDS ORDERED: THIAMINE 100 MG/ML 2 ML VIAL IM STA (08:56)
[2020-04-06] MEDS: POTASSIUM CHLORIDE 10 MEQ in WATER FOR INJECTION 1 100ML.BAG IVPB SCH ×4 (11:24→15:44)
[2020-04-06] MEDS: 0.9% NACL WITH KCL 20 MEQ/L 1,000 ML IV SCH (11:25)
[2020-04-06] MEDS ORDERED: METOPROLOL TARTRATE 50 MG TAB PO SCH (12:30)
[2020-04-06] MEDS: DIGOXIN 125 MCG TAB PO SCH (12:38)
[2020-04-06] MEDS: LORazepam 2 MG/ML INJ IV PRN ×2 (14:27→22:00)
[2020-04-06] MEDS ORDERED: ONDANSETRON 4 MG TAB PO PRN (15:03)
[2020-04-06] MEDS ORDERED: PHYTONADIONE 10 MG in SODIUM CHLORIDE 0.9% 50 ML IVPB STA (15:04)
[2020-04-06] MEDS ORDERED: PHYTONADIONE ORAL 5 MG/5 ML ORAL.SYRG PO STA (15:26)
[2020-04-06] MEDS: ESCITALOPRAM 10 MG TAB PO SCH (15:43)
[2020-04-06] MEDS: ACETAMINOPHEN TAB 325 MG TAB PO PRN (15:44)
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
[2020-04-06] MEDS ORDERED: THIAMINE 100 MG TAB PO SCH (17:30)
[2020-04-06] MEDS: THIAMINE 100 MG TAB PO SCH (18:54)
[2020-04-06] MEDS: PANTOPRAZOLE 40 MG TABLET PO SCH (18:54)
[2020-04-06] MEDS: METOPROLOL TARTRATE 50 MG TAB PO SCH (21:26)
[2020-04-06] MEDS: POTASSIUM CHLORIDE ER 20 MEQ TAB.ER PO SCH (21:27)
[2020-04-07] MEDS: ACETAMINOPHEN TAB 325 MG TAB PO PRN ×2 (00:29→08:35)
[2020-04-07 06:42] LABS: INR 2.5 (<1.2)
[2020-04-07 06:43] LABS: Anisocytosis Slight; Basophils # (A) 0.1 k/uL (0-0.2); Basophils % (A) 1 %; Eosinophils # (A) 0.2 k/uL (0-0.7); Eosinophils % (A) 2 %; HCT 34.7 % (34.0-46.0); Hypochromasia Marked; Lymphocytes # (A) 1.6 k/uL (1.0-4.8); Lymphocytes % (A) 21 %; MCH 25.9 pg (25.0-35.0); MCHC 31.8 g/dL (31.0-37.0); MCV 81.4 fL (80.0-100.0); Mean Platelet Volume 8.1; Microcytosis Slight; Monocytes # (A) 0.5 k/uL (0-1.0); Monocytes % (A) 7 %; Neutrophils % (A) 67 %; Platelet Count 474 k/uL (150-450); Poikilocytosis Moderate; RBC 4.26 m/uL (3.80-5.40); RDW 19.8 % (11.5-15.5); WBC 7.4 k/uL (3.8-10.6)
[2020-04-07] MEDS: THIAMINE 100 MG TAB PO SCH ×2 (06:45→17:18)
[2020-04-07] MEDS: PANTOPRAZOLE 40 MG TABLET PO SCH ×2 (06:45→17:18)
[2020-04-07] MEDS: 0.9% NACL WITH KCL 20 MEQ/L 1,000 ML IV SCH (06:46)
[2020-04-07] MEDS: SPIRONOLACTONE 25 MG TAB PO SCH (08:29)
[2020-04-07] MEDS: ESCITALOPRAM 10 MG TAB PO SCH (08:29)
[2020-04-07] MEDS: POTASSIUM CHLORIDE ER 20 MEQ TAB.ER PO SCH ×2 (08:29→22:08)
[2020-04-07] MEDS: DIGOXIN 125 MCG TAB PO SCH (08:29)
[2020-04-07] MEDS: METOPROLOL TARTRATE 50 MG TAB PO SCH ×2 (08:29→22:08)
[2020-04-07 08:51] LABS: ALT 45 U/L (4-34); AST 127 U/L (14-36); African American GFR (CKD) >90 (>60 ml/min/1.73 sqM); Albumin 3.9 g/dL (3.5-5.0); Alkaline Phosphatase 144 U/L (38-126); Anion Gap 9 mmol/L; Blood Urea Nitrogen 7 mg/dL (7-17); Calcium 9.2 mg/dL (8.4-10.2); Carbon Dioxide 32 mmol/L (22-30); Chloride 94 mmol/L (98-107); Glucose 79 mg/dL (74-99); Non-African American GFR(CKD) >90 (>60 ml/min/1.73 sqM); Sodium 135 mmol/L (137-145); Total Bilirubin 3.7 mg/dL (0.2-1.3); Total Protein 6.5 g/dL (6.3-8.2)
[2020-04-07] MEDS: diphenhydrAMINE 25 MG CAP PO PRN (10:17)
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
--- NOTE | 2020-04-07 17:02 | PN ---
PROGRESS NOTE ADMITTING CHIEF COMPLAINT: Acute alcohol intoxication, DTs, alcoholism and facial trauma. HISTORY OF PRESENT ILLNESS: This lady is awake and alert. She is not currently in DTs. She is having some discomfort in the jaw. PHYSICAL EXAMINATION: She is awake and alert. VITAL SIGNS: Normal. Chest is clear. Cardiac exam is normal. Abdomen is soft, nontender. There is a large hematoma on the chin and fracture of the left side on the left maxillary central incisor. IMPRESSION: 1. Acute alcohol intoxication. 2. Chronic alcoholism. 3. Impending DTs. 4. Congenital heart disease. 5. Contusions of the face. 6. Fracture of the left central maxillary incisor. PLAN: She is to be seen by Psychiatry and will probably be able to be discharged tomorrow to return to skilled nursing. MMODL / IJN: [id number] /
[2020-04-08] MEDS: ACETAMINOPHEN TAB 325 MG TAB PO PRN (02:58)
[2020-04-08] MEDS: diphenhydrAMINE 25 MG CAP PO PRN (02:59)
[2020-04-08] MEDS: PANTOPRAZOLE 40 MG TABLET PO SCH (07:01)
[2020-04-08] MEDS: THIAMINE 100 MG TAB PO SCH (07:01)
[2020-04-08] MEDS: ESCITALOPRAM 10 MG TAB PO SCH (08:23)
[2020-04-08] MEDS: POTASSIUM CHLORIDE ER 20 MEQ TAB.ER PO SCH (08:23)
[2020-04-08] MEDS: METOPROLOL TARTRATE 50 MG TAB PO SCH (08:23)
[2020-04-08] MEDS: DIGOXIN 125 MCG TAB PO SCH (08:23)
[2020-04-08 08:38] VITALS: RESP 16; TEMP 97.3
[2020-04-08] MEDS: SPIRONOLACTONE 25 MG TAB PO SCH (12:43)
[2020-04-08] MEDS: LORazepam 2 MG/ML INJ IV PRN (12:53)
[2020-04-08 12:56] VITALS: BP 102/68; PULSE 76
--- NOTE | 2020-04-09 17:14 | DS ---
DISCHARGE SUMMARY CHIEF COMPLAINT: Acute alcohol intoxication, facial trauma. HISTORY OF PRESENT ILLNESS AND PHYSICAL EXAMINATION: Details of this lady's history and physical can be found in the initial workup. LABORATORY STUDIES: While she was in a hospital she had laboratory studies, details of which can be found in the laboratory section of her chart. COURSE IN THE HOSPITAL: After admission, she was placed on bedrest, started on intravenous fluids and CIWA protocol. She did not go into DTs. She did well. It was felt she could be discharged on 04/08. She will return to the alf with the Polygraph Examiner's department to be arranged later. She will go there on her usual medications including Coumadin 4 mg once a day. FINAL DIAGNOSES: 1. Acute alcohol intoxication. 2. Chronic alcoholism. 3. Facial trauma with multiple ecchymoses, especially of the chin. 4. Fracture of the left maxillary central incisor. 5. Congenital heart disease. OPERATIONS: None. CONSULTATION: None. She is improved. MMODL / IJN: [id number] /
== END 2020-04-08 17:00 | disposition home or self-care (01) | DRG 897 ==
LOC: EC 07:29 → 3SCARD 08:54
PROVIDERS: ADMIT Family Medicine; ATTEND Family Medicine
DX: F10.220 Alcohol dependence with intoxication, uncomplicated (principal); D68.9 Coagulation defect, unspecified; Z11.59 Encounter for screening for other viral diseases; I50.9 Heart failure, unspecified; K70.9 Alcoholic liver disease, unspecified; I48.91 Unspecified atrial fibrillation; F60.9 Personality disorder, unspecified; S00.83XA Contusion of other part of head, initial encounter; E87.6 Hypokalemia; E83.42 Hypomagnesemia; T45.515A Adverse effect of anticoagulants, initial encounter; F32.9 Major depressive disorder, single episode, unspecified; S02.5XXA Fracture of tooth (traumatic), initial encounter for closed fracture; F41.1 Generalized anxiety disorder; F41.0 Panic disorder [episodic paroxysmal anxiety]; Y09 Assault by unspecified means; Y90.6 Blood alcohol level of 120-199 mg/100 ml; Z79.01 Long term (current) use of anticoagulants; Z79.899 Other long term (current) drug therapy; Z91.5 Personal history of self-harm; Z56.0 Unemployment, unspecified; Z87.74 Personal history of (corrected) congenital malformations of heart and circulatory system; Z87.891 Personal history of nicotine dependence; Z91.19 Patient's noncompliance with other medical treatment and regimen
CPT/HCPCS: 36415; 70450; 70486; 71046; 80053; 80320; 83735; 83880; 84484; 85025; 85610; 85730; 93005; 96365; 96372; 96375; 99291

== ENCOUNTER 2020-04-09 14:37 | Emergency (ER) | payer OTHER ==
[2020-04-09 14:47] VITALS: TEMP 98.1
[2020-04-09] MEDS ORDERED: LORazepam 2 MG/ML INJ IV STA (15:12)
--- NOTE | 2020-04-09 15:14 | ED ---
General Adult HPI - General Chief complaint: Chest Pain Stated complaint: panic attacks Time Seen by Provider: 04/09/20 15:02 Source: patient, police, EMS Mode of arrival: EMS Limitations: no limitations - History of Present Illness Initial comments: Dictation was produced using DivX dictation software. please excuse any grammatical, word or spelling errors. This patient was cared for during a federal and state declared state of emergency secondary to Covid 19 Chief Complaint: 34-year-old female presents with chief complaint of chest pain History of Present Illness: 34-year-old female she presents today with law enforcement for chief complaint of chest pain. Patient is arrested and under the custody of law enforcement after assault. Patient had a court hearing today and she was sentenced to mcfp. After hearing the news patient began complaining of chest pain. States that she does have some chest pressure. Enforcement at bedside reports that she was hysterical after finding out the nose. She states that she has pressure to her chest. Denies any diaphoresis. Law enforcement reports that patient became very anxious after the court appearance. Patient is begging to call her transportation engineer at [facility] for no reason in particular. The ROS documented in this emergency department record has been reviewed and confirmed by me. Those systems with pertinent positive or negative responses have been documented in the HPI. All other systems are other negative and/or noncontributory. PHYSICAL EXAM: General Impression: Alert and oriented x3, hysterical HEENT: Ecchymoses over the chin where she reports that she fell several days ago, extra-ocular movements intact, pupils equal and reactive to light bilaterally, mucous membranes moist. Cardiovascular: Heart regular rate and rhythm Chest: Able to complete full sentences, no retractions, no tachypnea Abdomen: abdomen soft, non-tender, non-distended, no organomegaly Musculoskeletal: Pulses present and equal in all extremities, no peripheral e uma Motor: no focal deficits noted Neurological: CN II-XII grossly intact, no focal motor or sensory deficits noted Skin: Intact with no visualized rashes Psych: Anxious ED course: 34-year-old female well-known to the emergency department for multiple visitations secondary to a myriad of complaints. She reports today for chief complaint of chest pain. 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 She was just sentenced to mcfp according to law enforcement individual at patient's bedside. Patient states she has chest pain. She does appear to be very anxious. According to law enforcement her symptoms began after patient was sentenced to mcfp. She does have extensive cardiac history with congenital heart disease requiring operation. Does have history of atrial fibrillation. Patient's glucose prese ntation likely secondary to anxiety reaction however given patient's cardiac history we will obtain medical clearance labs. Patient's EKG appears to be at her baseline. Laboratory evaluation obtained. CBC unremarkable. Coag panel is unremarkable. Metabolic panel is negative. Cardiac enzymes negative. Patient has stable hemodynamics. She was given some anxiolytic with improvement of her anxiety reaction. Patient medically cleared for mcfp. EKG interpretation: Ventricular rate 60, normal sinus rhythm,. Interval 160, QRS 160, QTc 504. No FL prolongation, no QTC prolongation, no ST or T-wave changes noted. EKG compared to 04/06/2020 showing no changes. Overall, this EKG is unremarkable - Related Data Home Medications Medication Instructions Recorded Confirmed Digoxin [Digitek] 125 mcg PO DAILY 12/19/17 04/06/20 Spironolactone [Aldactone] 25 mg PO DAILY 12/19/17 04/06/20 Potassium Chloride [Klor-Con 20] 40 meq PO BID 03/19/19 04/06/20 Loratadine [Claritin] 10 mg PO DAILY 11/04/19 04/06/20 Metoprolol Tartrate [Lopressor] 200 mg PO DAILY 03/02/20 04/06/20 Escitalopram [Lexapro] 10 mg PO DAILY 03/11/20 04/06/20 Furosemide [Lasix] 80 mg PO DAILY 03/20/20 04/06/20 Previous Rx's Medication Instructions Recorded Pantoprazole [Protonix] 40 mg PO AC-BID #60 tablet. 11/10/19 Thiamine [Vitamin B-1] 100 mg PO BID-W/MEALS #100 tab 02/13/20 Warfarin [Coumadin] 4 mg PO HS #30 tab 04/08/20 Allergies Allergy/AdvReac Type Severity Reaction Status Date / Time No Known Allergies Allergy Verified 04/06/20 09:39 Review of Systems ROS Statement: Those systems with pertinent positive or pertinent negative responses have been documented in the HPI. ROS Other: All systems not noted in ROS Statement are negative. Past Medical History Past Medical History: Atrial Fibrillation, Heart Failure Additional Past Medical History / Comment(s): Afib with RVR, pt had transposition of great arteries as an , hypomagnesemia, anemia. History of Any Multi-Drug Resistant Organisms: ESBL Date of last positivie culture/infection: 02/25/17 ESBL-Klebsiella MDRO Source:: Urine Past Surgical History: No Surgical Hx Reported Additional Past Surgical History / Comment(s): open heart surg for transposition of great arteries, CARDIOVERTED FOR A- FIB twice Past Anesthesia/Blood Transfusion Reactions: No Reported Reaction Past Psychological History: Anxiety, Depression Smoking Status: Former smoker Past Alcohol Use History: Abuse, Daily Past Drug Use History: None Reported - Past Family History Mother Family Medical History: No Reported History Additional Family Medical History / Comment(s): Mother is healthy Father Family Medical History: No Reported History Additional Family Medical History / Comment(s): Father is healthy General Exam Limitations: no limitations Course Vital Signs 04/09/20 14:43 Temperature 98.1 F Pulse Rate 64 Respiratory 20 Rate Blood Pressure 96/59 O2 Sat by Pulse 99 Oximetry Medical Decision Making - Lab Data Result diagrams: 04/09/20 15:34 04/09/20 15:34 Lab Results 04/09/20 04/09/20 04/09/20 Range/Units 15:34 15:34 15:34 WBC 9.0 (3.8-10.6) k/uL RBC 4.17 (3.80-5.40) m/uL Hgb 10.7 L (11.4-16.0) gm/dL Hct 34.8 (34.0-46.0) % MCV 83.4 (80.0-100.0) fL MCH 25.7 (25.0-35.0) pg MCHC 30.8 L (31.0-37.0) g/dL RDW 20.6 H (11.5-15.5) % Plt Count 464 H (150-450) k/uL Neutrophils % 72 % Lymphocytes % 15 % Monocytes % 6 % Eosinophils % 3 % Basophils % 1 % Neutrophils # 6.5 (1.3-7.7) k/uL Lymphocytes # 1.4 (1.0-4.8) k/uL Monocytes # 0.6 (0-1.0) k/uL Eosinophils # 0.3 (0-0.7) k/uL Basophils # 0.1 (0-0.2) k/uL Hypochromasia Marked Poikilocytosis Slight Anisocytosis Moderate Microcytosis Slight PT 12.7 H (9.0-12.0) sec INR 1.3 H (<1.2) APTT 22.4 (22.0-30.0) sec Sodium 136 L (137-145) mmol/L Potassium 4.1 (3.5-5.1) mmol/L Chloride 100 (98-107) mmol/L Carbon Dioxide 24 (22-30) mmol/L Anion Gap 12 mmol/L BUN 6 L (7-17) mg/dL Creatinine 0.64 (0.52-1.04) mg/dL Est GFR (CKD-EPI)AfAm >90 (>60 ml/min/1.73 sqM) Est GFR (CKD-EPI)NonAf >90 (>60 ml/min/1.73 sqM) Glucose 93 (74-99) mg/dL Calcium 10.1 (8.4-10.2) mg/dL Troponin I (0.000-0.034) ng/mL 04/09/20 Range/Units 15:34 WBC (3.8-10.6) k/uL RBC (3.80-5.40) m/uL Hgb (11.4-16.0) gm/dL Hct (34.0-46.0) % MCV (80.0-100.0) fL MCH (25.0-35.0) pg MCHC (31.0-37.0) g/dL RDW (11.5-15.5) % Plt Count (150-450) k/uL Neutrophils % % Lymphocytes % % Monocytes % % Eosinophils % % Basophils % % Neutrophils # (1.3-7.7) k/uL Lymphocytes # (1.0-4.8) k/uL Monocytes # (0-1.0) k/uL Eosinophils # (0-0.7) k/uL Basophils # (0-0.2) k/uL Hypochromasia Poikilocytosis Anisocytosis Microcytosis PT (9.0-12.0) sec INR (<1.2) APTT (22.0-30.0) sec Sodium (137-145) mmol/L Potassium (3.5-5.1) mmol/L Chloride (98-107) mmol/L Carbon Dioxide (22-30) mmol/L Anion Gap mmol/L BUN (7-17) mg/dL Creatinine (0.52-1.04) mg/dL Est GFR (CKD-EPI)AfAm (>60 ml/min/1.73 sqM) Est GFR (CKD-EPI)NonAf (>60 ml/min/1.73 sqM) Glucose (74-99) mg/dL Calcium (8.4-10.2) mg/dL Troponin I <0.012 (0.000-0.034) ng/mL Disposition Clinical Impression: Chest pain Disposition: OTHER INSTITUTION NOT DEFINED Additional Instructions: Patient medically cleared for intermediate Is patient prescribed a controlled substance at d/c from ED?: No Referrals: Rodney Wilson MD [Primary Care Provider] - 1-2 days Time of Disposition: 16:17 - Out of Hospital Transfer - Req. Specs Out of Hospital Transfer - Requested Specifics: Other Non-Acute (Snf)
[2020-04-09 15:44] LABS: Anisocytosis Moderate; Basophils # (A) 0.1 k/uL (0-0.2); Basophils % (A) 1 %; Eosinophils # (A) 0.3 k/uL (0-0.7); Eosinophils % (A) 3 %; HCT 34.8 % (34.0-46.0); HGB 10.7 gm/dL (11.4-16.0); Hypochromasia Marked; Lymphocytes # (A) 1.4 k/uL (1.0-4.8); Lymphocytes % (A) 15 %; MCH 25.7 pg (25.0-35.0); MCHC 30.8 g/dL (31.0-37.0); MCV 83.4 fL (80.0-100.0); Mean Platelet Volume 7.9; Microcytosis Slight; Monocytes # (A) 0.6 k/uL (0-1.0); Monocytes % (A) 6 %; Neutrophils # (A) 6.5 k/uL (1.3-7.7); Neutrophils % (A) 72 %; Platelet Count 464 k/uL (150-450); Poikilocytosis Slight; RBC 4.17 m/uL (3.80-5.40); RDW 20.6 % (11.5-15.5)
--- NOTE | 2020-04-09 15:54 | XR ---
EXAMINATION TYPE: XR chest 2V DATE OF EXAM: 04/09/2020 COMPARISON: Prior chest 04/06/2020 HISTORY: Chest pain TECHNIQUE: Frontal and lateral views of the chest are obtained. FINDINGS: Exam is stable. IMPRESSION: Cystic cardiomegaly.
[2020-04-09 15:59] LABS: African American GFR (CKD) >90 (>60 ml/min/1.73 sqM); Anion Gap 12 mmol/L; Blood Urea Nitrogen 6 mg/dL (7-17); Calcium 10.1 mg/dL (8.4-10.2); Carbon Dioxide 24 mmol/L (22-30); Chloride 100 mmol/L (98-107); Glucose 93 mg/dL (74-99); INR 1.3 (<1.2); Non-African American GFR(CKD) >90 (>60 ml/min/1.73 sqM); Partial Thromboplastin Time 22.4 sec (22.0-30.0); Potassium 4.1 mmol/L (3.5-5.1); Prothrombin Time 12.7 sec (9.0-12.0); Sodium 136 mmol/L (137-145)
[2020-04-09 16:35] VITALS: RESP 18
[2020-04-09 16:55] VITALS: BP 102/66; PULSE 71
== END 2020-04-09 16:57 | disposition other institution (70) ==
LOC: EC 14:37
DX: R07.9 Chest pain, unspecified (principal); I48.91 Unspecified atrial fibrillation; I50.9 Heart failure, unspecified; F41.9 Anxiety disorder, unspecified; F32.9 Major depressive disorder, single episode, unspecified; Z79.899 Other long term (current) drug therapy; Z87.891 Personal history of nicotine dependence
CPT/HCPCS: 36415; 93005; 80048; 84484; 85025; 85610; 85730; 71046; 99285; 96374; J2060

== ENCOUNTER 2020-05-05 18:23 | Observation (INO) | payer OTHER ==
[2020-05-05] MEDS ORDERED: SODIUM CHLORIDE 0.9% 500 ML 500 ML IV STA (18:53)
[2020-05-05] MEDS ORDERED: SODIUM CHLORIDE 0.9% 1,000 ML IV STA (18:53)
--- NOTE | 2020-05-05 18:54 | ED ---
Anxiety HPI - General Chief Complaint: Arrhythmia/Palpitations Stated Complaint: AFIB Time Seen by Provider: 05/05/20 18:30 Source: patient Mode of arrival: ambulatory - Related Data Home Medications: Home Medications Medication Instructions Recorded Confirmed Digoxin [Digitek] 125 mcg PO DAILY 12/19/17 04/09/20 Spironolactone [Aldactone] 25 mg PO DAILY 12/19/17 04/09/20 Potassium Chloride [Klor-Con 20] 40 meq PO BID 03/19/19 04/09/20 Loratadine [Claritin] 10 mg PO DAILY 11/04/19 04/09/20 Metoprolol Tartrate [Lopressor] 200 mg PO DAILY 03/02/20 04/09/20 Escitalopram [Lexapro] 10 mg PO DAILY 03/11/20 04/09/20 Furosemide [Lasix] 80 mg PO DAILY 03/20/20 04/09/20 Warfarin Sodium 4 mg PO DIRECTED 04/09/20 04/09/20 Previous Rx's Medication Instructions Recorded Pantoprazole [Protonix] 40 mg PO AC-BID #60 tablet. 11/10/19 Thiamine [Vitamin B-1] 100 mg PO BID-W/MEALS #100 tab 02/13/20 Allergies/Adverse Reactions: Allergies Allergy/AdvReac Type Severity Reaction Status Date / Time No Known Allergies Allergy Verified 05/05/20 18:25 Review of Systems ROS Statement: Those systems with pertinent positive or pertinent negative responses have been documented in the HPI. ROS Other: All systems not noted in ROS Statement are negative. Past Medical History Past Medical History: Atrial Fibrillation, Heart Failure Additional Past Medical History / Comment(s): Afib with RVR, pt had transposition of great arteries as an , hypomagnesemia, anemia. History of Any Multi-Drug Resistant Organisms: ESBL Date of last positivie culture/infection: 02/25/17 ESBL-Klebsiella MDRO Source:: Urine Past Surgical History: No Surgical Hx Reported Additional Past Surgical History / Comment(s): open heart surg for transposition of great arteries, CARDIOVERTED FOR A- FIB twice Past Anesthesia/Blood Transfusion Reactions: No Reported Reaction Past Psychological History: Anxiety, Depression Smoking Status: Former smoker Past Alcohol Use History: Abuse, Daily Past Drug Use History: None Reported - Past Family History Mother Family Medical History: No Reported History Additional Family Medical History / Comment(s): Mother is healthy Father Family Medical History: No Reported History Additional Family Medical History / Comment(s): Father is healthy General Exam Limitations: no limitations Course Vital Signs 05/05/20 05/05/20 18:25 18:52 Temperature 98.7 F Pulse Rate 94 Pulse Rate [ 94 Charge Auditor ] Respiratory 16 Rate Blood Pressure 111/61 O2 Sat by Pulse 96 Oximetry Medical Decision Making - Lab Data Result diagrams: 05/05/20 19:14 05/05/20 19:14 Lab Results 05/05/20 05/05/20 05/05/20 Range/Units 19:14 19:14 19:14 WBC 13.1 H (3.8-10.6) k/uL RBC 4.72 (3.80-5.40) m/uL Hgb 10.6 L (11.4-16.0) gm/dL Hct 34.2 (34.0-46.0) % MCV 72.5 L D (80.0-100.0) fL MCH 22.5 L (25.0-35.0) pg MCHC 31.1 (31.0-37.0) g/dL RDW 19.8 H (11.5-15.5) % Plt Count 623 H (150-450) k/uL Neutrophils % 56 % Lymphocytes % 30 % Monocytes % 5 % Eosinophils % 3 % Basophils % 2 % Neutrophils # 7.4 (1.3-7.7) k/uL Lymphocytes # 3.9 (1.0-4.8) k/uL Monocytes # 0.6 (0-1.0) k/uL Eosinophils # 0.4 (0-0.7) k/uL Basophils # 0.3 H (0-0.2) k/uL Hypochromasia Moderate Poikilocytosis Slight Anisocytosis Slight Microcytosis Marked PT 21.1 H (9.0-12.0) sec INR 2.2 H (<1.2) APTT 28.6 (22.0-30.0) sec Sodium 141 (137-145) mmol/L Potassium 3.3 L (3.5-5.1) mmol/L Chloride 100 (98-107) mmol/L Carbon Dioxide 21 L (22-30) mmol/L Anion Gap 20 mmol/L BUN 5 L (7-17) mg/dL Creatinine 0.53 (0.52-1.04) mg/dL Est GFR (CKD-EPI)AfAm >90 (>60 ml/min/1.73 sqM) Est GFR (CKD-EPI)NonAf >90 (>60 ml/min/1.73 sqM) Glucose 130 H (74-99) mg/dL Calcium 9.7 (8.4-10.2) mg/dL Magnesium 1.6 (1.6-2.3) mg/dL Total Bilirubin 1.0 (0.2-1.3) mg/dL AST 79 H (14-36) U/L ALT 42 H (4-34) U/L Alkaline Phosphatase 116 (38-126) U/L Troponin I (0.000-0.034) ng/mL NT-Pro-B Natriuret Pep pg/mL Total Protein 7.9 (6.3-8.2) g/dL Albumin 4.9 (3.5-5.0) g/dL Lipase 421 H (23-300) U/L Serum Alcohol 394 H* mg/dL 05/05/20 05/05/20 Range/Units 19:14 19:14 WBC (3.8-10.6) k/uL RBC (3.80-5.40) m/uL Hgb (11.4-16.0) gm/dL Hct (34.0-46.0) % MCV (80.0-100.0) fL MCH (25.0-35.0) pg MCHC (31.0-37.0) g/dL RDW (11.5-15.5) % Plt Count (150-450) k/uL Neutrophils % % Lymphocytes % % Monocytes % % Eosinophils % % Basophils % % Neutrophils # (1.3-7.7) k/uL Lymphocytes # (1.0-4.8) k/uL Monocytes # (0-1.0) k/uL Eosinophils # (0-0.7) k/uL Basophils # (0-0.2) k/uL Hypochromasia Poikilocytosis Anisocytosis Microcytosis PT (9.0-12.0) sec INR (<1.2) APTT (22.0-30.0) sec Sodium (137-145) mmol/L Potassium (3.5-5.1) mmol/L Chloride (98-107) mmol/L Carbon Dioxide (22-30) mmol/L Anion Gap mmol/L BUN (7-17) mg/dL Creatinine (0.52-1.04) mg/dL Est GFR (CKD-EPI)AfAm (>60 ml/min/1.73 sqM) Est GFR (CKD-EPI)NonAf (>60 ml/min/1.73 sqM) Glucose (74-99) mg/dL Calcium (8.4-10.2) mg/dL Magnesium (1.6-2.3) mg/dL Total Bilirubin (0.2-1.3) mg/dL AST (14-36) U/L ALT (4-34) U/L Alkaline Phosphatase (38-126) U/L Troponin I 0.036 H* (0.000-0.034) ng/mL NT-Pro-B Natriuret Pep 1820 pg/mL Total Protein (6.3-8.2) g/dL Albumin (3.5-5.0) g/dL Lipase (23-300) U/L Serum Alcohol mg/dL - EKG Data -: EKG Interpreted by Me (EKG is sinus rhythm 93 PA 192 QRS 24 QTc 539 with a right bundle) Disposition Clinical Impression: Alcohol use disorder, Panic attacks, Anxiety, Atypical chest pain, Alcohol intoxication Disposition: ADMITTED IP TO THIS HOSP Condition: Fair Is patient prescribed a controlled substance at d/c from ED?: No Referrals: Rodney Wilson MD [Primary Care Provider] - 1-2 days
[2020-05-05 19:24] LABS: Anisocytosis Slight; Basophils # (A) 0.3 k/uL (0-0.2); Basophils % (A) 2 %; Eosinophils # (A) 0.4 k/uL (0-0.7); Eosinophils % (A) 3 %; HCT 34.2 % (34.0-46.0); HGB 10.6 gm/dL (11.4-16.0); Hypochromasia Moderate; Lymphocytes # (A) 3.9 k/uL (1.0-4.8); Lymphocytes % (A) 30 %; MCH 22.5 pg (25.0-35.0); MCHC 31.1 g/dL (31.0-37.0); Mean Platelet Volume 7.7; Microcytosis Marked; Monocytes # (A) 0.6 k/uL (0-1.0); Monocytes % (A) 5 %; Neutrophils # (A) 7.4 k/uL (1.3-7.7); Neutrophils % (A) 56 %; Platelet Count 623 k/uL (150-450); Poikilocytosis Slight; RBC 4.72 m/uL (3.80-5.40); RDW 19.8 % (11.5-15.5); WBC 13.1 k/uL (3.8-10.6)
[2020-05-05 19:25] LABS: MCV 72.5 fL (80.0-100.0)
[2020-05-05 19:35] LABS: ALT 42 U/L (4-34); AST 79 U/L (14-36); African American GFR (CKD) >90 (>60 ml/min/1.73 sqM); Albumin 4.9 g/dL (3.5-5.0); Alkaline Phosphatase 116 U/L (38-126); Anion Gap 20 mmol/L; Blood Urea Nitrogen 5 mg/dL (7-17); Calcium 9.7 mg/dL (8.4-10.2); Carbon Dioxide 21 mmol/L (22-30); Chloride 100 mmol/L (98-107); Glucose 130 mg/dL (74-99); INR 2.2 (<1.2); Magnesium 1.6 mg/dL (1.6-2.3); Non-African American GFR(CKD) >90 (>60 ml/min/1.73 sqM); Partial Thromboplastin Time 28.6 sec (22.0-30.0); Potassium 3.3 mmol/L (3.5-5.1); Prothrombin Time 21.1 sec (9.0-12.0); Sodium 141 mmol/L (137-145); Total Protein 7.9 g/dL (6.3-8.2)
[2020-05-05 19:45] LABS: Alcohol 394 mg/dL
--- NOTE | 2020-05-05 19:51 | XR ---
EXAMINATION TYPE: XR chest 2V DATE OF EXAM: 05/05/2020 COMPARISON: 04/09/2020 HISTORY: Chest pain TECHNIQUE: 2 views FINDINGS: Heart is enlarged. There is no gross heart failure. Pulmonary vascularity is normal. There is no pleural effusion. Bony thorax is intact. IMPRESSION: Cardiomegaly unchanged.
[2020-05-05] MEDS ORDERED: NITROGLYCERIN SL TABS 0.4 MG TAB SUBLINGUAL PRN (20:11)
[2020-05-05] MEDS ORDERED: ASPIRIN 81 MG PO STA (20:11)
[2020-05-05] MEDS ORDERED: THIAMINE 100 MG/ML 2 ML VIAL IM STA (20:11)
[2020-05-05] MEDS ORDERED: LORazepam 2 MG/ML INJ IV PRN ×3 (20:11)
[2020-05-05] MEDS ORDERED: SODIUM CHLORIDE 0.9% 1,000 ML IV SCH (20:15)
[2020-05-05 23:06] VITALS: BP 106/61; PULSE 93; RESP 20; TEMP 98.1
[2020-05-06] MEDS ORDERED: THIAMINE 100 MG TAB PO SCH (07:30)
[2020-05-06] MEDS ORDERED: ASPIRIN 325 MG TAB PO SCH (09:00)
--- NOTE | 2020-05-06 18:27 | HP ---
HISTORY AND PHYSICAL DATE OF SERVICE: 05/05/2020 CHIEF COMPLAINT: Acute alcohol intoxication. HISTORY OF PRESENT ILLNESS: This is another of many admissions for this young lady who has congenital heart disease and has completely lost control of her life. She has become a chronic alcoholic. She recently was involved in some legal matters and went into care home for 29 days. As soon as she got out, she started drinking alcohol and presented to the emergency room with a blood alcohol over 0.4, and she was admitted. There was no other pertinent historical changes since she was in the hospital last. She does not come into the office in followup. She states that she was given her usual medications in care home. PHYSICAL EXAMINATION: Blood pressure is 140/90 with a pulse of 88, respirations of 35, and she is afebrile. In general, she appeared to be intoxicated, but in no acute distress. Skin was dry. Lymph nodes were not enlarged. Head, ears, eyes, nose, mouth, and throat were normal. Chest is clear. Cardiac exam demonstrated her usual murmur. She presented with scars on the anterior chest from her childhood surgeries. Abdomen is soft, nontender without visceromegaly or masses. Bowel sounds present. Extremities are normal. Neurologic is intact. She was not in DTs. IMPRESSION: 1. Acute alcohol intoxication. 2. Chronic alcoholism. 3. Congenital heart disease. PLAN: 1. Bed rest. 2. IV fluids. 3. CIWA protocol. JOSE ANGEL / CAROLYN: [id number] /
--- NOTE | 2020-05-06 18:42 | DS ---
DISCHARGE SUMMARY DATE OF ADMISSION: 05/05/2020. DATE OF DISCHARGE: 05/05/2020 CHIEF COMPLAINT: Acute alcohol intoxication. HISTORY OF PRESENT ILLNESS AND PHYSICAL EXAMINATION: Details of this lady's history and physical can be found in the initial workup. COURSE IN THE HOSPITAL: After admission, she was placed on bedrest, started on intravenous fluids with CIWA protocol. Later in the day, she signed herself out AGAINST MEDICAL ADVICE. FINAL DIAGNOSES: 1. Acute alcohol intoxication. 2. Chronic alcoholism. 3. Congenital heart disease. OPERATIONS: None. CONSULTATION: None. She is improved. MMODL / CARMENN: [id number] /
== END 2020-05-05 22:00 | disposition left against medical advice (07) ==
LOC: EC 18:23 → 3SCARD 20:11
PROVIDERS: ADMIT Family Medicine; ATTEND Family Medicine
DX: F10.20 Alcohol dependence, uncomplicated (principal); F10.229 Alcohol dependence with intoxication, unspecified; Z53.29 Procedure and treatment not carried out because of patient's decision for other reasons; Q24.9 Congenital malformation of heart, unspecified; R07.89 Other chest pain; F41.0 Panic disorder [episodic paroxysmal anxiety]; E83.42 Hypomagnesemia; D64.9 Anemia, unspecified; F32.9 Major depressive disorder, single episode, unspecified; F41.9 Anxiety disorder, unspecified; I48.91 Unspecified atrial fibrillation; I50.9 Heart failure, unspecified; Z86.19 Personal history of other infectious and parasitic diseases; Z79.01 Long term (current) use of anticoagulants; Z79.899 Other long term (current) drug therapy; F60.9 Personality disorder, unspecified
CPT/HCPCS: 96372; 96374; 99285; 36415; 93005; 83880; 80053; 83690; 83735; 84484; 85025; 85610; 85730; 71046; G0378; G0480; J2060; J3411; 80320

== ENCOUNTER 2020-05-06 21:21 | Emergency (ER) | payer OTHER ==
[2020-05-06 21:33] VITALS: TEMP 98.5
--- NOTE | 2020-05-06 21:37 | ED ---
General Adult HPI - General Chief complaint: Chest Pain Stated complaint: A-fib Time Seen by Provider: 05/06/20 21:30 Source: patient, EMS Mode of arrival: EMS - History of Present Illness Initial comments: Dictation was produced using [employer] dictation software. please excuse any grammatical, word or spelling errors. This patient was cared for during a federal and state declared state of emergency secondary to Covid 19 Chief Complaint: 34-year-old female past medical history of A. fib, congenital heart disease status post cardiac surgery presents with outpatient History of Present Illness: 34-year-old female she has multiple comorbidities. Patient has history of A. fib. She takes Coumadin. Patient is well-known to emergency department for multiple visitations. Patient was admitted yesterday to his intoxication. She was just discharged today. Patient ports that she lives alone. She was feeling palpitations today. She called EMS and was brou ght to the emergency department. The ROS documented in this emergency department record has been reviewed and confirmed by me. Those systems with pertinent positive or negative responses have been documented in the HPI. All other systems are other negative and/or noncontributory. PHYSICAL EXAM: General Impression: Alert and oriented x3, not in acute distress HEENT: Normocephalic atraumatic, extra-ocular movements intact, pupils equal and reactive to light bilaterally, mucous membranes moist. Cardiovascular: Heart regular rate and rhythm Chest: Able to complete full sentences, no retractions, no tachypnea Abdomen: abdomen soft, non-tender, non-distended, no organomegaly Musculoskeletal: Pulses present and equal in all extremities, no peripheral edema Motor: no focal deficits noted Neurological: CN II-XII grossly intact, no focal motor or sensory deficits noted Skin: Intact with no visualized rashes Psych: Normal affect and mood ED course: 34-year-old who presents with palpitations. Vital signs upon arrival are within acceptable limits. She comes to the emergency department almost daily for multiple complaints. EKG does not show an A. fib. Her EKG looks baseline. Laboratory evaluation obtained. CBC is unremarkable. Coag panel is unremarkable. INR is therapeutic. Metabolic panel shows potassium 3.1. Patient given oral potassium. Rest of labs are patient's baseline. Troponin is elevated at 0.037 however this is a baseline elevation. Patient is clear for discharge. EKG interpretation: Ventricular rate 80, normal sinus rhythm,. Interval 184, QRS 172, QTc 5:15, right bundle branch block. No SC prolongation, no QTC prolongation, no ST or T-wave changes noted. EKG compared to 05/05/2020 showing no changes. Overall, this EKG is unremarkable - Related Data Home Medications Medication Instructions Recorded Confirmed Digoxin [Digitek] 125 mcg PO DAILY 12/19/17 05/05/20 Spironolactone [Aldactone] 25 mg PO DAILY 12/19/17 05/05/20 Potassium Chloride [Klor-Con 20] 40 meq PO BID 03/19/19 05/05/20 Loratadine [Claritin] 10 mg PO DAILY 11/04/19 05/05/20 Metoprolol Tartrate [Lopressor] 200 mg PO DAILY 03/02/20 05/05/20 Escitalopram [Lexapro] 10 mg PO DAILY 03/11/20 05/05/20 Furosemide [Lasix] 80 mg PO DAILY 03/20/20 05/05/20 Warfarin Sodium 4 mg PO HS 04/09/20 05/05/20 Magnesium (Unknown Strength) 1 tab PO DAILY 05/05/20 05/05/20 Previous Rx's Medication Instructions Recorded Pantoprazole [Protonix] 40 mg PO AC-BID #60 tablet. 11/10/19 Thiamine [Vitamin B-1] 100 mg PO BID-W/MEALS #100 tab 02/13/20 Allergies Allergy/AdvReac Type Severity Reaction Status Date / Time No Known Allergies Allergy Verified 05/06/20 21:32 Review of Systems ROS Statement: Those systems with pertinent positive or pertinent negative responses have been documented in the HPI. ROS Other: All systems not noted in ROS Statement are negative. 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 History of Any Multi-Drug Resistant Organisms: ESBL Date of last positivie culture/infection: 02/25/17 ESBL-Klebsiella MDRO Source:: Urine Past Surgical History: No Surgical Hx Reported Additional Past Surgical History / Comment(s): open heart surg for transposition of great arteries, CARDIOVERTED FOR A- FIB twice Past Anesthesia/Blood Transfusion Reactions: No Reported Reaction Past Psychological History: Anxiety, Depression Smoking Status: Former smoker Past Alcohol Use History: Abuse, Daily Past Drug Use History: None Reported - Past Family History Mother Family Medical History: No Reported History Additional Family Medical History / Comment(s): Mother is healthy Father Family Medical History: No Reported History Additional Family Medical History / Comment(s): Father is healthy Course Vital Signs 05/06/20 21:23 Temperature 98.5 F Pulse Rate 98 Respiratory 16 Rate Blood Pressure 118/71 O2 Sat by Pulse 98 Oximetry Medical Decision Making - Lab Data Result diagrams: 05/06/20 21:45 05/06/20 21:45 Lab Results 05/06/20 05/06/20 05/06/20 Range/Units 21:45 21:45 21:45 WBC 8.8 (3.8-10.6) k/uL RBC 4.13 (3.80-5.40) m/uL Hgb 9.4 L (11.4-16.0) gm/dL Hct 30.2 L (34.0-46.0) % MCV 73.2 L (80.0-100.0) fL MCH 22.7 L (25.0-35.0) pg MCHC 31.0 (31.0-37.0) g/dL RDW 19.5 H (11.5-15.5) % Plt Count 475 H (150-450) k/uL Neutrophils % 63 % Lymphocytes % 26 % Monocytes % 4 % Eosinophils % 3 % Basophils % 2 % Neutrophils # 5.6 (1.3-7.7) k/uL Lymphocytes # 2.3 (1.0-4.8) k/uL Monocytes # 0.3 (0-1.0) k/uL Eosinophils # 0.2 (0-0.7) k/uL Basophils # 0.1 (0-0.2) k/uL Hypochromasia Marked Poikilocytosis Slight Anisocytosis Slight Microcytosis Marked PT 20.5 H (9.0-12.0) sec INR 2.1 H (<1.2) APTT 28.7 (22.0-30.0) sec Sodium 135 L (137-145) mmol/L Potassium 3.1 L (3.5-5.1) mmol/L Chloride 98 (98-107) mmol/L Carbon Dioxide 21 L (22-30) mmol/L Anion Gap 16 mmol/L BUN 3 L (7-17) mg/dL Creatinine 0.45 L (0.52-1.04) mg/dL Est GFR (CKD-EPI)AfAm >90 (>60 ml/min/1.73 sqM) Est GFR (CKD-EPI)NonAf >90 (>60 ml/min/1.73 sqM) Glucose 119 H (74-99) mg/dL Calcium 9.2 (8.4-10.2) mg/dL Troponin I (0.000-0.034) ng/mL 05/06/20 Range/Units 21:45 WBC (3.8-10.6) k/uL RBC (3.80-5.40) m/uL Hgb (11.4-16.0) gm/dL Hct (34.0-46.0) % MCV (80.0-100.0) fL MCH (25.0-35.0) pg MCHC (31.0-37.0) g/dL RDW (11.5-15.5) % Plt Count (150-450) k/uL Neutrophils % % Lymphocytes % % Monocytes % % Eosinophils % % Basophils % % Neutrophils # (1.3-7.7) k/uL Lymphocytes # (1.0-4.8) k/uL Monocytes # (0-1.0) k/uL Eosinophils # (0-0.7) k/uL Basophils # (0-0.2) k/uL Hypochromasia Poikilocytosis Anisocytosis Microcytosis PT (9.0-12.0) sec INR (<1.2) APTT (22.0-30.0) sec Sodium (137-145) mmol/L Potassium (3.5-5.1) mmol/L Chloride (98-107) mmol/L Carbon Dioxide (22-30) mmol/L Anion Gap mmol/L BUN (7-17) mg/dL Creatinine (0.52-1.04) mg/dL Est GFR (CKD-EPI)AfAm (>60 ml/min/1.73 sqM) Est GFR (CKD-EPI)NonAf (>60 ml/min/1.73 sqM) Glucose (74-99) mg/dL Calcium (8.4-10.2) mg/dL Troponin I 0.037 H* (0.000-0.034) ng/mL Disposition Clinical Impression: Palpitations Disposition: HOME SELF-CARE Condition: Good Instructions (If sedation given, give patient instructions): Heart Palpitations (ED) Is patient prescribed a controlled substance at d/c from ED?: No Referrals: Rodney Wilson MD [Primary Care Provider] - 1-2 days Time of Disposition: 22:29
[2020-05-06 21:53] LABS: Anisocytosis Slight; Basophils # (A) 0.1 k/uL (0-0.2); Basophils % (A) 2 %; Eosinophils # (A) 0.2 k/uL (0-0.7); Eosinophils % (A) 3 %; HCT 30.2 % (34.0-46.0); HGB 9.4 gm/dL (11.4-16.0); Hypochromasia Marked; Lymphocytes # (A) 2.3 k/uL (1.0-4.8); Lymphocytes % (A) 26 %; MCH 22.7 pg (25.0-35.0); MCV 73.2 fL (80.0-100.0); Mean Platelet Volume 7.1; Microcytosis Marked; Monocytes # (A) 0.3 k/uL (0-1.0); Monocytes % (A) 4 %; Neutrophils # (A) 5.6 k/uL (1.3-7.7); Neutrophils % (A) 63 %; Platelet Count 475 k/uL (150-450); Poikilocytosis Slight; RBC 4.13 m/uL (3.80-5.40); RDW 19.5 % (11.5-15.5); WBC 8.8 k/uL (3.8-10.6)
--- NOTE | 2020-05-06 21:58 | XR ---
EXAMINATION TYPE: XR chest 1V portable DATE OF EXAM: 05/06/2020 COMPARISON: Chest x-ray May 05, 2020. HISTORY: History of atrial fibrillation and palpitations. TECHNIQUE: Single AP portable frontal view of the chest is obtained. FINDINGS: There is chronic parenchymal change without suspicious new focal air space opacity, pleura l effusion, or pneumothorax seen. The cardiac silhouette size remains enlarged. The osseous struct ures are intact. IMPRESSION: Cardiomegaly without new acute pulmonary process.
[2020-05-06 22:03] LABS: INR 2.1 (<1.2); Partial Thromboplastin Time 28.7 sec (22.0-30.0); Prothrombin Time 20.5 sec (9.0-12.0)
[2020-05-06 22:05] LABS: African American GFR (CKD) >90 (>60 ml/min/1.73 sqM); Anion Gap 16 mmol/L; Blood Urea Nitrogen 3 mg/dL (7-17); Calcium 9.2 mg/dL (8.4-10.2); Carbon Dioxide 21 mmol/L (22-30); Chloride 98 mmol/L (98-107); Glucose 119 mg/dL (74-99); Non-African American GFR(CKD) >90 (>60 ml/min/1.73 sqM); Potassium 3.1 mmol/L (3.5-5.1); Sodium 135 mmol/L (137-145)
[2020-05-06] MEDS ORDERED: POTASSIUM CHLORIDE ER 20 MEQ TAB.ER PO STA (22:28)
[2020-05-06] MEDS ORDERED: LORazepam 2 MG/ML INJ IV STA (22:32)
[2020-05-06 22:58] VITALS: BP 111/58; PULSE 96; RESP 15
== END 2020-05-06 23:09 | disposition home or self-care (01) ==
LOC: EC 21:21
DX: R00.2 Palpitations (principal); R07.9 Chest pain, unspecified; F10.10 Alcohol abuse, uncomplicated; I48.91 Unspecified atrial fibrillation; I50.9 Heart failure, unspecified; I45.10 Unspecified right bundle-branch block; F41.9 Anxiety disorder, unspecified; F32.9 Major depressive disorder, single episode, unspecified; I48.20 Chronic atrial fibrillation, unspecified; Z87.891 Personal history of nicotine dependence; Z79.01 Long term (current) use of anticoagulants; Z79.899 Other long term (current) drug therapy; Z98.890 Other specified postprocedural states
CPT/HCPCS: 36415; 93005; 80048; 84484; 85025; 85610; 85730; 71045; 99285; 96374; J2060

== ENCOUNTER 2020-05-07 14:42 | Emergency (ER) | payer OTHER ==
[2020-05-07 14:47] VITALS: BP 133/86; PULSE 106; RESP 18; TEMP 98.3
--- NOTE | 2020-05-07 15:08 | ED ---
General Adult HPI - General Chief complaint: Anxiety Stated complaint: Chest pain Time Seen by Provider: 05/07/20 15:02 Source: patient, RN notes reviewed Mode of arrival: ambulatory Limitations: no limitations - History of Present Illness Initial comments: 34-year-old female presents to the emergency room for a chief complaint of anxiety and palpitations. Patient states that she has a history of atrial fibrillation and feels like she is in atrial fibrillation. Patient reports that her anxiety is very high right now. She is tearful when describing she has to go to court tomorrow because she "disturbed the peace." Patient states she is very anxious about this. Patient has also ran out of her medications and took her medications last yesterday. She did not take any of her medications today. Patient states she has an appointment on Wednesday to have these refilled. She states she could've had an appointment scheduled for tomorrow but didn't want to may out of her court date.Patient has no other complaints at this time including shortness of breath, chest pain, abdominal pain, nausea or vomiting, headache, or visual changes. - Related Data Home Medications Medication Instructions Recorded Confirmed Digoxin [Digitek] 125 mcg PO DAILY 12/19/17 05/05/20 Spironolactone [Aldactone] 25 mg PO DAILY 12/19/17 05/05/20 Potassium Chloride [Klor-Con 20] 40 meq PO BID 03/19/19 05/05/20 Loratadine [Claritin] 10 mg PO DAILY 11/04/19 05/05/20 Metoprolol Tartrate [Lopressor] 200 mg PO DAILY 03/02/20 05/05/20 Escitalopram [Lexapro] 10 mg PO DAILY 03/11/20 05/05/20 Furosemide [Lasix] 80 mg PO DAILY 03/20/20 05/05/20 Warfarin Sodium 4 mg PO HS 04/09/20 05/05/20 Magnesium (Unknown Strength) 1 tab PO DAILY 05/05/20 05/05/20 Previous Rx's Medication Instructions Recorded Pantoprazole [Protonix] 40 mg PO AC-BID #60 tablet. 11/10/19 Thiamine [Vitamin B-1] 100 mg PO BID-W/MEALS #100 tab 02/13/20 Allergies Allergy/AdvReac Type Severity Reaction Status Date / Time No Known Allergies Allergy Verified 05/07/20 14:47 Review of Systems ROS Statement: Those systems with pertinent positive or pertinent negative responses have been documented in the HPI. ROS Other: All systems not noted in ROS Statement are negative. 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 History of Any Multi-Drug Resistant Organisms: ESBL Date of last positivie culture/infection: 02/25/17 ESBL-Klebsiella MDRO Source:: Urine Past Surgical History: No Surgical Hx Reported Additional Past Surgical History / Comment(s): open heart surg for transposition of great arteries, CARDIOVERTED FOR A- FIB twice Past Anesthesia/Blood Transfusion Reactions: No Reported Reaction Past Psychological History: Anxiety, Depression Smoking Status: Former smoker Past Alcohol Use History: Abuse, Daily Past Drug Use History: None Reported - Past Family History Mother Family Medical History: No Reported History Additional Family Medical History / Comment(s): Mother is healthy Father Family Medical History: No Reported History Additional Family Medical History / Comment(s): Father is healthy General Exam Limitations: no limitations General appearance: alert, anxious Head exam: Present: atraumatic, normocephalic, normal inspection Eye exam: Present: normal appearance, PERRL, EOMI. Absent: scleral icterus, conjunctival injection, periorbital swelling ENT exam: Present: normal exam, mucous membranes moist Neck exam: Present: normal inspection, full ROM. Absent: tenderness, meningismus, lymphadenopathy Respiratory exam: Present: normal lung sounds bilaterally. Absent: respiratory distress, wheezes, rales, rhonchi, stridor Cardiovascular Exam: Present: regular rate, normal rhythm, normal heart sounds. Absent: systolic murmur, diastolic murmur, rubs, gallop, clicks GI/Abdominal exam: Present: soft, normal bowel sounds. Absent: distended, tenderness, guarding, rebound, rigid Course Vital Signs 05/07/20 14:43 Temperature 98.3 F Pulse Rate 106 H Respiratory 18 Rate Blood Pressure 133/86 O2 Sat by Pulse 99 Oximetry Medical Decision Making - Medical Decision Making Patient was seen yesterday and had laboratory evaluation performed. She had a baseline elevation of her troponin to 0.037. EKG was performed today which showed a sinus tachycardia with a ventricular rate of 106. This was compared to prior EKG which appears similar. sensation of palpitations likely related to anxiety as patient is tearful several times through her stay. Patient was given her oral medications that she missed this morning as well as a Ativan. patient will be discharged home to follow-up with her doctor. Disposition Clinical Impression: Anxiety Disposition: HOME SELF-CARE Condition: Good Instructions (If sedation given, give patient instructions): Generalized Anxiety Disorder (ED) Additional Instructions: please follow-up with your doctor for medication refill. Return to the emergency room for any worsening symptoms. Is patient prescribed a controlled substance at d/c from ED?: No Referrals: Rodney Wilson MD [Primary Care Provider] - 1-2 days Time of Disposition: 15:51
[2020-05-07] MEDS ORDERED: DIGOXIN 125 MCG TAB PO STA (15:41)
[2020-05-07] MEDS ORDERED: METOPROLOL TARTRATE 50 MG TAB PO STA (15:41)
[2020-05-07] MEDS ORDERED: LORazepam 1 MG TAB PO STA (15:41)
[2020-05-07] MEDS ORDERED: FUROSEMIDE 80 MG TAB PO STA (15:42)
== END 2020-05-07 16:02 | disposition home or self-care (01) ==
LOC: EC 14:42
DX: F41.9 Anxiety disorder, unspecified (principal); R79.89 Other specified abnormal findings of blood chemistry; R00.0 Tachycardia, unspecified; R00.2 Palpitations; I48.91 Unspecified atrial fibrillation; I50.9 Heart failure, unspecified; F32.9 Major depressive disorder, single episode, unspecified; Z79.01 Long term (current) use of anticoagulants; Z79.899 Other long term (current) drug therapy; Z87.891 Personal history of nicotine dependence
CPT/HCPCS: 93005; 99283

== ENCOUNTER 2020-06-10 00:08 | Inpatient (IN) | payer OTHER ==
[2020-06-10] MEDS ORDERED: SODIUM CHLORIDE 0.9% 500 ML 500 ML IV STA (00:47)
[2020-06-10] MEDS ORDERED: LORazepam 1 MG TAB PO STA (00:54)
[2020-06-10 01:25] LABS: Anisocytosis Moderate; HCT 28.2 % (34.0-46.0); HGB 8.3 gm/dL (11.4-16.0); Hypochromasia Marked; MCH 20.3 pg (25.0-35.0); MCHC 29.6 g/dL (31.0-37.0); MCV 68.7 fL (80.0-100.0); Mean Platelet Volume 8.6; Microcytosis Marked; Platelet Count 499 k/uL (150-450); Poikilocytosis Slight; RDW 22.6 % (11.5-15.5)
[2020-06-10 01:37] LABS: ALT 64 U/L (4-34); AST 86 U/L (14-36); African American GFR (CKD) >90 (>60 ml/min/1.73 sqM); Albumin 4.8 g/dL (3.5-5.0); Alkaline Phosphatase 100 U/L (38-126); Anion Gap 18 mmol/L; Blood Urea Nitrogen 9 mg/dL (7-17); Calcium 9.4 mg/dL (8.4-10.2); Carbon Dioxide 16 mmol/L (22-30); Chloride 95 mmol/L (98-107); Glucose 129 mg/dL (74-99); Non-African American GFR(CKD) 83 (>60 ml/min/1.73 sqM); Potassium 3.3 mmol/L (3.5-5.1); Sodium 129 mmol/L (137-145); Total Bilirubin 2.2 mg/dL (0.2-1.3); Total Protein 7.4 g/dL (6.3-8.2)
[2020-06-10 01:39] LABS: Partial Thromboplastin Time 34.5 sec (22.0-30.0); Prothrombin Time 58.1 sec (9.0-12.0)
[2020-06-10 01:44] LABS: INR 5.8 (<1.2)
[2020-06-10 01:45] LABS: Alcohol 267 mg/dL
[2020-06-10 02:02] LABS: Basophils # (M) 0.33 k/uL (0-0.2); Eosinophils # (M) 0.33 k/uL (0-0.7); Large Platelets Present; Lymphocytes # (M) 3.19 k/uL (1.0-4.8); Monocytes # (M) 0.66 k/uL (0-1.0); Neutrophils % (M) 60 %; Nucleated Red Blood Cells 1 /100 WBC (0-0); Polychromasia Present; Reactive Lymphocytes Present; Total Cells Counted 200
[2020-06-10] MEDS ORDERED: NALOXONE 0.4 MG/ML 1 ML VIAL IV PRN (03:17)
[2020-06-10] MEDS ORDERED: PHYTONADIONE ORAL 5 MG/5 ML ORAL.SYRG PO STA (03:22)
[2020-06-10] MEDS ORDERED: LORazepam 2 MG/ML INJ IV PRN ×2 (03:23)
--- NOTE | 2020-06-10 03:26 | ED ---
GI Bleed HPI - General Chief complaint: GI Bleed Stated complaint: SOB, Blood in Stool Time Seen by Provider: 06/10/20 00:35 Source: patient Mode of arrival: ambulatory Limitations: no limitations - History of Present Illness Initial comments: This patient is 34-year-old woman who presents because she had noticed some blood streaks with last bowel movement. The patient states that she does have history of anemia and was recently started on iron supplement. The patient has noted a little bit of exertional dyspnea. She states she finds her self getting fatigued with activity that she normally tolerates well. She states that otherwise she had been feeling pretty well. She is not having any abdominal or perianal pain. No chest pain or dyspnea at rest. No diaphoresis or palpitations. MD complaint: blood streaked stool -: hour(s) Radiation: none Severity scale (1-10): 0 Quality: painless Consistency: now resolved Improves with: none Worsens with: none Context: history of GI bleed, liver disease, alcohol abuse, blood thinners Associated Symptoms: denies other symptoms Treatments Prior to Arrival: none - Related Data Home Medications Medication Instructions Recorded Confirmed Digoxin [Digitek] 125 mcg PO DAILY 12/19/17 05/05/20 Spironolactone [Aldactone] 25 mg PO DAILY 12/19/17 05/05/20 Loratadine [Claritin] 10 mg PO DAILY 11/04/19 05/05/20 Metoprolol Tartrate [Lopressor] 200 mg PO DAILY 03/02/20 05/05/20 Escitalopram [Lexapro] 10 mg PO DAILY 03/11/20 05/05/20 Furosemide [Lasix] 80 mg PO DAILY 03/20/20 05/05/20 Warfarin Sodium 4 mg PO HS 04/09/20 05/05/20 Magnesium (Unknown Strength) 1 tab PO DAILY 05/05/20 05/05/20 Previous Rx's Medication Instructions Recorded Pantoprazole [Protonix] 40 mg PO AC-BID #60 tablet. 11/10/19 Thiamine [Vitamin B-1] 100 mg PO BID-W/MEALS #100 tab 02/13/20 Potassium Chloride [Klor-Con 20] 40 meq PO BID 3 Days #12 tab 05/07/20 Allergies Allergy/AdvReac Type Severity Reaction Status Date / Time No Known Allergies Allergy Verified 06/10/20 00:27 Review of Systems ROS Statement: Those systems with pertinent positive or pertinent negative responses have been documented in the HPI. ROS Other: All systems not noted in ROS Statement are negative. Constitutional: Denies: fever, chills Respiratory: Denies: cough, dyspnea, hemoptysis Cardiovascular: Reports: dyspnea on exertion. Denies: chest pain, palpitations, orthopnea, edema, syncope Gastrointestinal: Reports: hematochezia. Denies: abdominal pain, nausea, vomiting, diarrhea, hematemesis, melena Genitourinary: Denies: dysuria, hematuria Musculoskeletal: Denies: back pain Skin: Denies: rash Neurological: Denies: headache, weakness, numbness Hematological/Lymphatic: Reports: other (Takes Coumadin) Past Medical History Past Medical History: Atrial Fibrillation, Heart Failure Additional Past Medical History / Comment(s): Afib with RVR, pt had transposition of great arteries as an , hypomagnesemia, anemia. History of Any Multi-Drug Resistant Organisms: ESBL Date of last positivie culture/infection: 02/25/17 ESBL-Klebsiella MDRO Source:: Urine Past Surgical History: No Surgical Hx Reported Additional Past Surgical History / Comment(s): open heart surg for transposition of great arteries, CARDIOVERTED FOR A- FIB twice Past Anesthesia/Blood Transfusion Reactions: No Reported Reaction Past Psychological History: Anxiety, Depression Smoking Status: Former smoker Past Alcohol Use History: Abuse, Daily Past Drug Use History: None Reported - Past Family History Mother Family Medical History: No Reported History Additional Family Medical History / Comment(s): Mother is healthy Father Family Medical History: No Reported History Additional Family Medical History / Comment(s): Father is healthy General Exam Limitations: no limitations General appearance: alert, in no apparent distress Head exam: Present: atraumatic, normocephalic Eye exam: Present: normal appearance. Absent: scleral icterus, conjunctival injection Neck exam: Present: normal inspection Respiratory exam: Present: normal lung sounds bilaterally. Absent: respiratory distress, wheezes, rales, rhonchi, stridor Cardiovascular Exam: Present: regular rate, normal rhythm, normal heart sounds. Absent: systolic murmur, diastolic murmur, rubs, gallop GI/Abdominal exam: Present: soft. Absent: distended, tenderness, guarding, rebound, rigid, mass Extremities exam: Present: normal inspection, normal capillary refill. Absent: pedal edema, calf tenderness Back exam: Present: normal inspection. Absent: CVA tenderness (R), CVA tenderness (L) Neurological exam: Present: alert Skin exam: Present: warm, dry, intact, normal color. Absent: rash Course Vital Signs 06/10/20 06/10/20 06/10/20 00:23 01:30 02:26 Temperature 97.6 F Pulse Rate 67 67 86 Respiratory 18 19 19 Rate Blood Pressure 91/54 120/99 114/77 O2 Sat by Pulse 98 90 L 92 L Oximetry Medical Decision Making - Lab Data Result diagrams: 06/10/20 01:17 06/10/20 01:17 Lab Results 06/10/20 06/10/20 06/10/20 Range/Units 01:17 01:17 01:17 WBC 11.0 H (3.8-10.6) k/uL RBC 4.10 (3.80-5.40) m/uL Hgb 8.3 L (11.4-16.0) gm/dL Hct 28.2 L (34.0-46.0) % MCV 68.7 L (80.0-100.0) fL MCH 20.3 L (25.0-35.0) pg MCHC 29.6 L (31.0-37.0) g/dL RDW 22.6 H (11.5-15.5) % Plt Count 499 H (150-450) k/uL Neutrophils % (Manual) 60 % Lymphocytes % (Manual) 29 % Monocytes % (Manual) 6 % Eosinophils % (Manual) 3 % Basophils % (Manual) 3 % Neutrophils # (Manual) 6.60 (1.3-7.7) k/uL Lymphocytes # (Manual) 3.19 (1.0-4.8) k/uL Monocytes # (Manual) 0.66 (0-1.0) k/uL Eosinophils # (Manual) 0.33 (0-0.7) k/uL Basophils # (Manual) 0.33 H (0-0.2) k/uL Nucleated RBCs 1 H (0-0) /100 WBC Manual Slide Review Performed Reactive Lymphocytes Present Large Platelets Present Polychromasia Present Hypochromasia Marked Poikilocytosis Slight Anisocytosis Moderate Microcytosis Marked PT 58.1 H (9.0-12.0) sec INR 5.8 H* (<1.2) APTT 34.5 H (22.0-30.0) sec Sodium (137-145) mmol/L Potassium (3.5-5.1) mmol/L Chloride (98-107) mmol/L Carbon Dioxide (22-30) mmol/L Anion Gap mmol/L BUN (7-17) mg/dL Creatinine (0.52-1.04) mg/dL Est GFR (CKD-EPI)AfAm (>60 ml/min/1.73 sqM) Est GFR (CKD-EPI)NonAf (>60 ml/min/1.73 sqM) Glucose (74-99) mg/dL Calcium (8.4-10.2) mg/dL Total Bilirubin (0.2-1.3) mg/dL AST (14-36) U/L ALT (4-34) U/L Alkaline Phosphatase (38-126) U/L Troponin I (0.000-0.034) ng/mL Total Protein (6.3-8.2) g/dL Albumin (3.5-5.0) g/dL Stool Occult Blood Positive H (Negative) Serum Alcohol mg/dL 06/10/20 06/10/20 Range/Units 01:17 01:17 WBC (3.8-10.6) k/uL RBC (3.80-5.40) m/uL Hgb (11.4-16.0) gm/dL Hct (34.0-46.0) % MCV (80.0-100.0) fL MCH (25.0-35.0) pg MCHC (31.0-37.0) g/dL RDW (11.5-15.5) % Plt Count (150-450) k/uL Neutrophils % (Manual) % Lymphocytes % (Manual) % Monocytes % (Manual) % Eosinophils % (Manual) % Basophils % (Manual) % Neutrophils # (Manual) (1.3-7.7) k/uL Lymphocytes # (Manual) (1.0-4.8) k/uL Monocytes # (Manual) (0-1.0) k/uL Eosinophils # (Manual) (0-0.7) k/uL Basophils # (Manual) (0-0.2) k/uL Nucleated RBCs (0-0) /100 WBC Manual Slide Review Reactive Lymphocytes Large Platelets Polychromasia Hypochromasia Poikilocytosis Anisocytosis Microcytosis PT (9.0-12.0) sec INR (<1.2) APTT (22.0-30.0) sec Sodium 129 L (137-145) mmol/L Potassium 3.3 L (3.5-5.1) mmol/L Chloride 95 L (98-107) mmol/L Carbon Dioxide 16 L (22-30) mmol/L Anion Gap 18 mmol/L BUN 9 (7-17) mg/dL Creatinine 0.92 (0.52-1.04) mg/dL Est GFR (CKD-EPI)AfAm >90 (>60 ml/min/1.73 sqM) Est GFR (CKD-EPI)NonAf 83 (>60 ml/min/1.73 sqM) Glucose 129 H (74-99) mg/dL Calcium 9.4 (8.4-10.2) mg/dL Total Bilirubin 2.2 H (0.2-1.3) mg/dL AST 86 H (14-36) U/L ALT 64 H (4-34) U/L Alkaline Phosphatase 100 (38-126) U/L Troponin I 0.014 (0.000-0.034) ng/mL Total Protein 7.4 (6.3-8.2) g/dL Albumin 4.8 (3.5-5.0) g/dL Stool Occult Blood (Negative) Serum Alcohol 267 H* mg/dL Disposition Clinical Impression: ETOH abuse, Hypokalemia, GI bleed, Hyponatremia, Anemia Disposition: ADMITTED IP TO THIS [facility] Condition: Fair Referrals: Rodney Wilson MD [Primary Care Provider] - 1-2 days
[2020-06-10] MEDS: SODIUM CHLORIDE 0.9% 1,000 ML IV SCH ×2 (03:50→15:34)
[2020-06-10 09:07] LABS: Anisocytosis Moderate; HCT 24.9 % (34.0-46.0); Hypochromasia Marked; MCH 19.8 pg (25.0-35.0); MCV 70.9 fL (80.0-100.0); Mean Platelet Volume 7.3; Microcytosis Marked; Platelet Count 362 k/uL (150-450); Poikilocytosis Slight; RBC 3.52 m/uL (3.80-5.40); RDW 22.6 % (11.5-15.5); WBC 8.4 k/uL (3.8-10.6)
[2020-06-10] MEDS: FUROSEMIDE 80 MG TAB PO SCH (09:42)
[2020-06-10] MEDS: PANTOPRAZOLE 40 MG TABLET PO SCH ×2 (09:42→17:28)
[2020-06-10] MEDS: METOPROLOL TARTRATE 50 MG TAB PO SCH (09:42)
[2020-06-10] MEDS: DIGOXIN 125 MCG TAB PO SCH (09:43)
[2020-06-10] MEDS: SPIRONOLACTONE 25 MG TAB PO SCH (09:43)
[2020-06-10] MEDS: POTASSIUM CHLORIDE ER 20 MEQ TAB.ER PO SCH ×2 (09:43→21:06)
[2020-06-10] MEDS: ESCITALOPRAM 10 MG TAB PO SCH (09:43)
[2020-06-10] MEDS: LORazepam 2 MG/ML INJ IV PRN ×5 (09:43→21:06)
[2020-06-10] MEDS ORDERED: LORazepam 0.5 MG TAB PO PRN (11:48)
[2020-06-10] MEDS: MAGNESIUM OXIDE 400 MG TAB PO SCH ×2 (12:22→21:06)
[2020-06-10] MEDS: THIAMINE 100 MG TAB PO SCH ×2 (12:22→17:28)
[2020-06-10] MEDS: FERROUS SULFATE 325 MG TAB PO SCH (12:22)
[2020-06-10] MEDS: LORATADINE 10 MG TAB PO SCH (12:22)
[2020-06-10 13:03] LABS: Reticulocyte % 3.3 % (0.5-2.0)
[2020-06-10 15:20] LABS: Anisocytosis Moderate; HCT 23.9 % (34.0-46.0); Hypochromasia Marked; MCH 19.6 pg (25.0-35.0); MCHC 28.2 g/dL (31.0-37.0); MCV 69.6 fL (80.0-100.0); Mean Platelet Volume 8.4; Microcytosis Marked; Platelet Count 356 k/uL (150-450); Poikilocytosis Slight; RBC 3.44 m/uL (3.80-5.40); RDW 23.1 % (11.5-15.5); WBC 8.3 k/uL (3.8-10.6)
[2020-06-10 15:26] LABS: Prothrombin Time 57.8 sec (9.0-12.0)
[2020-06-10 15:29] LABS: INR 5.7 (<1.2)
[2020-06-10 16:51] LABS: % Iron Saturation 7.09 (12.00-45.00)
[2020-06-10 17:01] LABS: Ferritin 10.6 ng/mL (10.0-291.0)
[2020-06-10 17:18] LABS: Folate, Serum 8.5 ng/mL
[2020-06-10] MEDS ORDERED: THIAMINE 100 MG TAB PO SCH (17:30)
[2020-06-10 22:33] LABS: Anisocytosis Marked; HCT 28.1 % (34.0-46.0); Hypochromasia Marked; MCH 21.3 pg (25.0-35.0); MCV 70.9 fL (80.0-100.0); Mean Platelet Volume 7.6; Microcytosis Marked; Platelet Count 330 k/uL (150-450); Poikilocytosis Moderate; RBC 3.96 m/uL (3.80-5.40); RDW 24.3 % (11.5-15.5)
[2020-06-10 22:34] LABS: HGB 8.4 gm/dL (11.4-16.0); INR 4.8 (<1.2); Prothrombin Time 48.3 sec (9.0-12.0)
[2020-06-10 22:52] LABS: Neutrophils % (M) 73 %; Nucleated Red Blood Cells 2 /100 WBC (0-0); Total Cells Counted 200
[2020-06-10 22:53] LABS: Monocytes # (M) 0.49 k/uL (0-1.0); Neutrophils # (M) 5.99 k/uL (1.3-7.7); Polychromasia Present; WBC 8.2 k/uL (3.8-10.6)
[2020-06-11] MEDS: LORazepam 2 MG/ML INJ IV PRN ×3 (00:16→22:04)
[2020-06-11] MEDS: SODIUM CHLORIDE 0.9% 1,000 ML IV SCH ×3 (00:16→20:57)
--- NOTE | 2020-06-11 07:35 | P.CONS ---
History of Present Illness - Reason for Consult Consult date: 06/10/20 Anemia Requesting physician: Rodney Wilson - Chief Complaint Blood streaking in stool - History of Present Illness 34-year-old female with multiple medical comorbidities including paroxysmal atrial fibrillation on anticoagulation therapy, hypertension, regular alcohol use and anemia evaluated previously with an endoscopy as well as congenital heart disease status post surgical repair at age of 3 months at the [facility] who presented to the hospital with complaints of blood streaking in her stool. The patient was found to be intoxicated on presentation. Although she continues to report abstinence from alcohol use. She denies any abdominal pain or perianal pain. She does report some streaking of blood in her stool. The patient has a history of alcoholic hepatitis and pancreatitis in the past. She underwent EGD and colonoscopy in 11/06/2019 with findings of mild gastritis on EGD and low-grade internal hemorrhoids on colonoscopy. Presentation hemoglobin was found to be 8 but subsequently fell to 6.7. However on questioning with the nursing team the patient did have extensive bleeding from an IV site. Currently hemoglobin is 8.3 status post transfusion of PRBCs with liver enzymes significant for total bilirubin 2.7, alkaline phosphatase 108, AST 86 and ALT 61. Review of Systems REVIEW OF SYSTEMS: CONSTITUTIONAL: Denies any fevers, chills, weight change or fatigue. CARDIOVASCULAR: Denies any chest pain, palpitations high or low blood pressures RESPIRATORY: Denies any shortness of breath, hemoptysis or cough. GENITOURINARY: No dysuria or hematuria. MUSCULOSKELETAL: No weakness reported. SKIN: Denies any new rashes or lesions, jaundice or pallor. PSYCHIATRIC: Denies any depression or anxiety. NEUROLOGY: Denies headache, denies any new focal deficits. EARS/NOSE/THROAT: No recent hearing change, congestion, nasal discharge or sore throat. EYES: No pain in eyes, discharge or change in vision. GASTROINTESTINAL: As per HPI. 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 History of Any Multi-Drug Resistant Organisms: ESBL Year Discovered:: 02/25/17 ESBL-Klebsiella MDRO Source:: Urine Past Surgical History: No Surgical Hx Reported Additional Past Surgical History / Comment(s): open heart surg for transposition of great arteries, CARDIOVERTED FOR A- FIB twice Past Anesthesia/Blood Transfusion Reactions: No Reported Reaction Past Psychological History: Anxiety, Depression Additional Psychological History / Comment(s): UNEMPLOYED ETOH Smoking Status: Former smoker Past Alcohol Use History: Abuse, Daily Additional Past Alcohol Use History / Comment(s): Pt started smoking in 2002 and quit in 2016. Pt states she used to be a heavy drinker, states she currently has 2-3 glasses of wine daily Past Drug Use History: None Reported - Past Family History Mother Family Medical History: No Reported History Additional Family Medical History / Comment(s): Mother is healthy Father Family Medical History: No Reported History Additional Family Medical History / Comment(s): Father is healthy Medications and Allergies Home Medications Medication Instructions Recorded Confirmed Type Digoxin [Digitek] 125 mcg PO DAILY 12/19/17 06/10/20 History Spironolactone [Aldactone] 25 mg PO DAILY 12/19/17 06/10/20 History Loratadine [Claritin] 10 mg PO DAILY 11/04/19 06/10/20 History Pantoprazole [Protonix] 40 mg PO AC-BID #60 tablet. 11/10/19 06/10/20 Rx Thiamine [Vitamin B-1] 100 mg PO BID-W/MEALS #100 tab 02/13/20 06/10/20 Rx Metoprolol Tartrate [Lopressor] 200 mg PO DAILY 03/02/20 06/10/20 History Escitalopram [Lexapro] 10 mg PO DAILY 03/11/20 06/10/20 History Furosemide [Lasix] 80 mg PO DAILY 03/20/20 06/10/20 History Warfarin Sodium 4 mg PO HS 04/09/20 06/10/20 History Potassium Chloride [Klor-Con 20] 40 meq PO BID 3 Days #12 tab 05/07/20 06/10/20 Rx Ferrous Sulfate [Iron] 325 mg PO DAILY 06/10/20 06/10/20 History LORazepam [Ativan] 0.5 mg PO HS PRN 06/10/20 06/10/20 History Magnesium Oxide [Mag-Ox] 400 mg PO BID 06/10/20 06/10/20 History Allergies Allergy/AdvReac Type Severity Reaction Status Date / Time No Known Allergies Allergy Verified 06/10/20 10:43 Physical Exam Vitals: Vital Signs Temp Pulse Pulse Resp BP BP Pulse Ox 06/10/20 09:20 97.4 F L 69 20 112/72 93 L 06/10/20 05:59 97.4 F L 68 18 108/71 92 L 06/10/20 05:12 98.4 F 74 19 110/80 93 L 06/10/20 05:01 98.4 F 74 18 110/80 93 L 06/10/20 03:33 69 18 107/74 94 L 06/10/20 02:26 86 19 114/77 92 L 06/10/20 01:30 67 19 120/99 90 L 06/10/20 00:23 97.6 F 67 18 91/54 98 Intake and Output 06/09/20 06/10/20 06/10/20 22:59 06:59 14:59 Other: Weight 63.503 kg On physical examination, patient appears comfortable in no apparent distress. HEAD: Normocephalic, atraumatic. EYES: No scleral icterus. No conjunctival injection. MOUTH: No lesions, tongue midline. NECK: Trachea midline, no gross abnormalities. CHEST: Clear to auscultation with no wheezing or rhonchi appreciated. HEART: Regular rate and rhythm. ABDOMEN: Soft, nontender to palpation. Bowel sounds are positive. No organomegaly. No guarding or rigidity. EXTREMITIES: No pedal edema. SKIN: No rashes, no jaundice. NEUROLOGIC: Alert and oriented x3. No focal deficits. Results CBC & Chem 7: 06/10/20 22:16 06/10/20 01:17 Labs: Abnormal Lab Results - Last 24 Hours (Table) 06/10/20 06/10/20 06/10/20 Range/Units 01:17 01:17 01:17 WBC 11.0 H (3.8-10.6) k/uL RBC (3.80-5.40) m/uL Hgb 8.3 L (11.4-16.0) gm/dL Hct 28.2 L (34.0-46.0) % MCV 68.7 L (80.0-100.0) fL MCH 20.3 L (25.0-35.0) pg MCHC 29.6 L (31.0-37.0) g/dL RDW 22.6 H (11.5-15.5) % Plt Count 499 H (150-450) k/uL Basophils # (Manual) 0.33 H (0-0.2) k/uL Nucleated RBCs 1 H (0-0) /100 WBC Retic Count (0.5-2.0) % PT 58.1 H (9.0-12.0) sec INR 5.8 H* (<1.2) APTT 34.5 H (22.0-30.0) sec Sodium (137-145) mmol/L Potassium (3.5-5.1) mmol/L Chloride (98-107) mmol/L Carbon Dioxide (22-30) mmol/L Glucose (74-99) mg/dL Total Bilirubin (0.2-1.3) mg/dL AST (14-36) U/L ALT (4-34) U/L Stool Occult Blood Positive H (Negative) Serum Alcohol mg/dL 06/10/20 06/10/20 06/10/20 Range/Units 01:17 08:49 08:49 WBC (3.8-10.6) k/uL RBC 3.52 L (3.80-5.40) m/uL Hgb 7.0 L (11.4-16.0) gm/dL Hct 24.9 L (34.0-46.0) % MCV 70.9 L (80.0-100.0) fL MCH 19.8 L (25.0-35.0) pg MCHC 28.0 L (31.0-37.0) g/dL RDW 22.6 H (11.5-15.5) % Plt Count (150-450) k/uL Basophils # (Manual) (0-0.2) k/uL Nucleated RBCs (0-0) /100 WBC Retic Count 3.3 H (0.5-2.0) % PT (9.0-12.0) sec INR (<1.2) APTT (22.0-30.0) sec Sodium 129 L (137-145) mmol/L Potassium 3.3 L (3.5-5.1) mmol/L Chloride 95 L (98-107) mmol/L Carbon Dioxide 16 L (22-30) mmol/L Glucose 129 H (74-99) mg/dL Total Bilirubin 2.2 H (0.2-1.3) mg/dL AST 86 H (14-36) U/L ALT 64 H (4-34) U/L Stool Occult Blood (Negative) Serum Alcohol 267 H* mg/dL Assessment and Plan (1) GI bleed Narrative/Plan: 34-year-old female with multiple medical comorbidities including a known history of anemia, alcohol abuse, prior hospitalizations for alcoholic hepatitis and pancreatitis who presented to the hospital due to blood per rectum. Previously she underwent endoscopic evaluation with EGD and colonoscopy in October 2019 with findings of mild gastritis on EGD and low-grade internal hemorrhoids on colonoscopy. had noted some blood streaking in her stool. No perianal pain or abdominal pain. Patient's hemoglobin was 8 on presentation and subsequently fell to 6.7, however on questioning in discussion with the nursing staff patient has significant bleeding from an IV site. Suspicion is for perirectal bleeding and hemorrhoids which are the source of her bleeding, however will repeat EGD to rule out upper GI source of bleeding. Current Visit: Yes Status: Acute Code(s): K92.2 - GASTROINTESTINAL HEMORR ANTIONE, UNSPECIFIED SNOMED Code(s): 59911284 (2) Alcohol intoxication Current Visit: No Status: Acute Code(s): F10.129 - ALCOHOL ABUSE WITH INTOXICATION, UNSPECIFIED SNOMED Code(s): 07410847 (3) Alcoholic liver disease Current Visit: No Status: Acute Code(s): K70.9 - ALCOHOLIC LIVER DISEASE, UNSPECIFIED SNOMED Code(s): 72101620 Plan: Supportive care Clear liquid diet Continue to monitor hemoglobin and hematocrit and transfuse as needed Alcohol withdrawal protocol Continue to monitor CBC, BMP, LFTs Nothing by mouth after midnight for EGD tomorrow Thank you for allowing us to participate in the care of the patient
[2020-06-11 07:52] LABS: Prothrombin Time 28.9 sec (9.0-12.0)
[2020-06-11 08:11] LABS: Anisocytosis Moderate; HCT 27.5 % (34.0-46.0); HGB 7.9 gm/dL (11.4-16.0); Hypochromasia Marked; MCH 20.9 pg (25.0-35.0); MCHC 28.8 g/dL (31.0-37.0); MCV 72.7 fL (80.0-100.0); Mean Platelet Volume 9.5; Microcytosis Marked; Platelet Count 286 k/uL (150-450); Poikilocytosis Moderate; RBC 3.78 m/uL (3.80-5.40); RDW 23.8 % (11.5-15.5); WBC 8.2 k/uL (3.8-10.6)
[2020-06-11] MEDS ORDERED: PHYTONADIONE 5 MG in SODIUM CHLORIDE 0.9% 50 ML IVPB STA (08:22)
[2020-06-11] MEDS: MAGNESIUM OXIDE 400 MG TAB PO SCH ×2 (09:12→21:00)
[2020-06-11] MEDS: DIGOXIN 125 MCG TAB PO SCH (09:12)
[2020-06-11] MEDS: ESCITALOPRAM 10 MG TAB PO SCH (09:12)
[2020-06-11] MEDS: PANTOPRAZOLE 40 MG TABLET PO SCH ×2 (09:12→16:41)
[2020-06-11] MEDS: POTASSIUM CHLORIDE ER 20 MEQ TAB.ER PO SCH ×2 (09:13→21:00)
[2020-06-11] MEDS: METOPROLOL TARTRATE 50 MG TAB PO SCH (09:49)
[2020-06-11 11:06] LABS: HGB 6.7 gm/dL (11.4-16.0)
[2020-06-11] MEDS ORDERED: LIDOCAINE 1% INJ 10MG/ML (20 ML MDV) ONE (13:18)
[2020-06-11] MEDS ORDERED: IV FLUID CONTINUATION 1,000 ML IV ONE (13:18)
[2020-06-11] MEDS ORDERED: MIDAZOLAM 2 MG/2 ML VIAL ONE (13:18)
[2020-06-11] MEDS ORDERED: PROPOFOL 10 MG/ML 20 ML VIAL IV ONE (13:18)
[2020-06-11] MEDS ORDERED: SODIUM CHLORIDE 0.9% 500 ML IV ONE ×2 (13:33→13:47)
--- NOTE | 2020-06-11 13:42 | P.PCN ---
Date of Procedure: 06/11/20 Procedure(s) Performed: BRIEF HISTORY: Patient is a 34-year-old, pleasant, white female with history of alcohol abuse admitted hospital with black colored and blood streaks on the stool stools. Had a hemoglobin of 6.7 g/dL requiring 2 units of blood transfusion. She isn't scheduled for an upper endoscopy to evaluate further.. Patient has history of atrial fibrillation and presently on Coumadin. PROCEDURE PERFORMED: Esophagogastroduodenoscopy. PREOPERATIVE DIAGNOSIS: Acute GI bleed/severe anemia. IV sedation per anesthesia. PROCEDURE: After informed consent was obtained, the patient was brought into the endoscopy unit. IV sedation was administered by Anesthesia under continuous monitoring. Initially the Olympus GIF-140 video endoscope was inserted into the mouth. Esophagus intubated without any difficulty. It was gradually advanced into the stomach and duodenum and carefully examined. The bulb and the second part of the duodenum appeared normal. The scope at this time was withdrawn to the stomach, adequately insufflated with air, and upon careful examination, mucosa of the antrum had mild to moderate gastritis but no active bleeding. The, body, cardia and the fundus appeared normal. The scope was then withdrawn into the esophagus. The GE junction was located at 39 cm from the incisors. The esophagus appeared normal. There were no erosions or ulcerations seen and the patient tolerated the procedure well. IMPRESSION: 1. Mild to moderate antral gastritis but no active bleeding. No evidence of peptic ulcer disease 2. No evidence of esophageal or gastric varices. RECOMMENDATIONS: The findings of this examination were discussed with the patient. At this time will monitor her CBC on a daily basis. Advance diet as tolerated..
[2020-06-11] MEDS: LORATADINE 10 MG TAB PO SCH (16:41)
[2020-06-11] MEDS: FERROUS SULFATE 325 MG TAB PO SCH (16:41)
[2020-06-11] MEDS: FUROSEMIDE 80 MG TAB PO SCH (16:41)
[2020-06-11] MEDS: SPIRONOLACTONE 25 MG TAB PO SCH (16:41)
[2020-06-11] MEDS: THIAMINE 100 MG TAB PO SCH ×2 (16:45→18:01)
--- NOTE | 2020-06-11 18:01 | HP ---
HISTORY AND PHYSICAL DATE OF ADMISSION: 06/10/2020 CHIEF COMPLAINT: Shortness of breath and anemia. HISTORY OF PRESENT ILLNESS: This is another admission for this 34-year-old white female alcoholic. She came to the emergency room because she "wasn't feeling good." She was found to be profoundly anemic once again. Her hemoglobin has never risen very far above 8. She denies any current drinking, but her alcohol level in the emergency room was present. She has cirrhosis and she also has congenital heart disease. REVIEW OF SYSTEMS: She denies any blackouts, change in vision or hearing, cough, hemoptysis, chest pain, abdominal pain, hematemesis, melena, hematochezia, jaundice, vaginal bleeding or discharge, renal failure, hematuria, frequency, urgency, incontinence, etc. Past medical history, family history, and personal and social histories are all otherwise unremarkable and unchanged. Her INR was up around 5. She is very noncompliant, does not keep appointments and does not take her medications regularly. She does not get pro times drawn very often. PHYSICAL EXAMINATION: Blood pressure is 106/64 with a pulse of 90, respirations of 35, and she is afebrile. In general she appeared to be pale and slightly tanned. Head, ears, eyes, nose, mouth and throat were unremarkable except for glossitis. Neck veins were not distended. Chest was clear. Cardiac exam demonstrated a very faint murmur consistent with her congenital heart disease. Abdomen was slightly protuberant, soft and nontender without any visceromegaly or masses. Bowel sounds were present. Extremities were normal. There was some blood on her legs. It is not known if this was vaginal or rectal. Neurologically she was intact. She was not in DTs. IMPRESSION: 1. Anemia. 2. Gastrointestinal blood loss. 3. Blood loss anemia. 4. Chronic alcoholism. 5. Cirrhosis. 6. Congenital heart disease. 7. Hyperprothrombinemia. PLAN: 1. Bed rest. 2. IV fluids. 3. Withhold Coumadin. 4. Follow hemoglobins. 5. Consult with Gastroenterology. MMODL / CAROLYN: [id number] /
--- NOTE | 2020-06-11 18:37 | PN ---
PROGRESS NOTE CHIEF COMPLAINT: Anemia and GI blood loss. HISTORY OF PRESENT ILLNESS: This lady is stable and her hemoglobin is hovering around 8 grams. She is going today for endoscopies. PHYSICAL EXAMINATION: She is alert and awake. She is not tremulous. Chest is clear. Cardiac exam is unchanged. The abdomen is soft and nontender. IMPRESSION: 1. Blood loss anemia. 2. Cirrhosis. 3. Hyperprothrombinemia. 4. Chronic alcoholism. 5. Congenital heart disease. PLAN: 1. Upper and lower GI endoscopies today. 2. Continue to follow hemoglobins. MMODL / IJN: [id number] /
[2020-06-12] MEDS: SODIUM CHLORIDE 0.9% 1,000 ML IV SCH ×2 (06:46→17:12)
[2020-06-12] MEDS: THIAMINE 100 MG TAB PO SCH ×2 (07:00→17:09)
[2020-06-12] MEDS: PANTOPRAZOLE 40 MG TABLET PO SCH ×2 (07:00→17:09)
[2020-06-12 07:45] LABS: Anisocytosis Marked; Basophils # (A) 0.1 k/uL (0-0.2); Basophils % (A) 1 %; Eosinophils # (A) 0.2 k/uL (0-0.7); Eosinophils % (A) 3 %; HCT 28.3 % (34.0-46.0); HGB 8.1 gm/dL (11.4-16.0); Hypochromasia Marked; Lymphocytes # (A) 1.4 k/uL (1.0-4.8); Lymphocytes % (A) 20 %; MCH 21.3 pg (25.0-35.0); MCHC 28.7 g/dL (31.0-37.0); MCV 74.1 fL (80.0-100.0); Microcytosis Marked; Monocytes # (A) 0.4 k/uL (0-1.0); Monocytes % (A) 6 %; Neutrophils # (A) 4.7 k/uL (1.3-7.7); Neutrophils % (A) 68 %; Platelet Count 238 k/uL (150-450); Poikilocytosis Moderate; RBC 3.82 m/uL (3.80-5.40)
[2020-06-12 07:50] LABS: RDW 25.2 % (11.5-15.5)
[2020-06-12 07:54] LABS: INR 1.7 (<1.2); Prothrombin Time 16.8 sec (9.0-12.0)
[2020-06-12 08:12] LABS: ALT 86 U/L (4-34); AST 79 U/L (14-36); African American GFR (CKD) >90 (>60 ml/min/1.73 sqM); Albumin 3.8 g/dL (3.5-5.0); Alkaline Phosphatase 96 U/L (38-126); Anion Gap 11 mmol/L; Blood Urea Nitrogen 5 mg/dL (7-17); Calcium 8.9 mg/dL (8.4-10.2); Carbon Dioxide 22 mmol/L (22-30); Chloride 102 mmol/L (98-107); Glucose 79 mg/dL (74-99); Non-African American GFR(CKD) >90 (>60 ml/min/1.73 sqM); Potassium 3.5 mmol/L (3.5-5.1); Sodium 135 mmol/L (137-145); Total Bilirubin 4.1 mg/dL (0.2-1.3); Total Protein 6.3 g/dL (6.3-8.2)
[2020-06-12] MEDS: LORazepam 2 MG/ML INJ IV PRN (08:19)
[2020-06-12] MEDS: METOPROLOL TARTRATE 50 MG TAB PO SCH (08:20)
[2020-06-12] MEDS: MAGNESIUM OXIDE 400 MG TAB PO SCH ×2 (08:20→20:47)
[2020-06-12] MEDS: LORATADINE 10 MG TAB PO SCH (08:20)
[2020-06-12] MEDS: DIGOXIN 125 MCG TAB PO SCH (08:20)
[2020-06-12] MEDS: POTASSIUM CHLORIDE ER 20 MEQ TAB.ER PO SCH ×2 (08:20→20:46)
[2020-06-12] MEDS: SPIRONOLACTONE 25 MG TAB PO SCH (08:20)
[2020-06-12] MEDS: ESCITALOPRAM 10 MG TAB PO SCH (08:20)
[2020-06-12] MEDS: FUROSEMIDE 80 MG TAB PO SCH (08:20)
[2020-06-12] MEDS: FERROUS SULFATE 325 MG TAB PO SCH (08:20)
[2020-06-12 09:22] LABS: Polychromasia Present
[2020-06-12] MEDS: LACTATED RINGERS 1,000 ML IV SCH (11:12)
--- NOTE | 2020-06-12 11:51 | P.PN ---
Subjective Progress Note Date: 06/12/20 Principal diagnosis: blood streaking stool Assessment 34-year-old white female with a history of alcohol abuse admitted to the hospital by colored blood-tinged stools. Her initial hemoglobin was 6.7 requiring 2 units of blood transfusion. The patient does have a history of atr ial fibrillation on Coumadin, with a presenting INR 5, has received two doses of Vitamin K. She underwent an EGD yesterday showed mild to moderate antral gastritis but no active bleeding. There is no evidence of peptic ulcer disease, and no evidence of esophageal or gastric varices. The patient was seen and examined sleeping, however easily arousable. The patient denies any abdominal pain, nausea, or vomiting. Patient states she did have a bowel movement today which was dark, no bright red bleeding. Objective - Vital Signs Vital signs: Vital Signs Temp 97.2 F L 06/12/20 08:00 Pulse 86 06/12/20 08:00 Resp 18 06/12/20 08:00 BP 95/53 06/12/20 08:00 Pulse Ox 97 06/12/20 08:00 Intake & Output 06/11/20 06/12/20 06/12/20 18:59 06:59 18:59 Intake Total 1000 360 240 Balance 1000 360 240 Weight 60.4 kg Intake: IV 400 Oral 600 360 240 Other: Voiding Method Toilet Toilet # Voids 3 2 - Exam General appearance: The patient is alert, oriented, in no acute distress. HET: Head is normocephalic and atraumatic. ENT the pink. Sclera anicteric. Neck: Supple without lymphadenopathy. Trachea midline. Heart: S1 S2. Regular rate and rhythm. Lungs: No crackles or wheezes are heard. Abdomen: Soft, nontender, nondistended with bowel sounds. No palpable organomegaly or masses. Extremities: Normal skin color and turgor. Nopedal edema. Neurological: No focal deficits. Strength and sensation are grossly intact. - Labs CBC & Chem 7: 06/12/20 07:13 06/12/20 07:13 Labs: Abnormal Lab Results - Last 24 Hours (Table) 06/12/20 06/12/20 06/12/20 Range/Units 07:13 07:13 07:13 Hgb 8.1 L (11.4-16.0) gm/dL Hct 28.3 L (34.0-46.0) % MCV 74.1 L (80.0-100.0) fL MCH 21.3 L (25.0-35.0) pg MCHC 28.7 L (31.0-37.0) g/dL RDW 25.2 H (11.5-15.5) % PT 16.8 H (9.0-12.0) sec INR 1.7 H (<1.2) Sodium 135 L (137-145) mmol/L BUN 5 L (7-17) mg/dL Total Bilirubin 4.1 H (0.2-1.3) mg/dL AST 79 H (14-36) U/L ALT 86 H (4-34) U/L Assessment and Plan Assessment: (1) GI bleed Narrative/Plan: 34-year-old female with multiple medical comorbidities including a known history of anemia, alcohol abuse, prior hospitalizations for alcoholic hepatitis and pancreatitis who presented to the hospital due to blood per rectum. Previously she underwent endoscopic evaluation with EGD and colonoscopy in October 2019 with findings of mild gastritis on EGD and low-grade internal hemorrhoids on colonoscopy. The patient had noted some blood streaking in her stool. No perianal pain or abdominal pain. Patient's hemoglobin was 8 on presentation and subsequently fell to 6.7, however on questioning in discussion with the nursing staff patient has significant bleeding from an IV site. Suspicion is for perirectal bleeding and hemorrhoids which are the source of her bleeding, however will repeat EGD to rule out upper GI source of bleeding. Current Visit: Yes Status: Acute Code(s): K92.2 - GASTROINTESTINAL HEMORRHAGE, UNSPECIFIED SNOMED Code(s): 02174951 (2) Alcohol intoxication Current Visit: No Status: Acute Code(s): F10.129 - ALCOHOL ABUSE WITH INTOXICATION, UNSPECIFIED SNOMED Code(s): 85114387 (3) Alcoholic liver disease Current Visit: No Status: Acute Code(s): K70.9 - ALCOHOLIC LIVER DISEASE, UNSPECIFIED SNOMED Code(s): 34010406 Plan: Supportive care Instead as tolerated Continue to monitor hemoglobin and hematocrit and transfuse as needed Alcohol withdrawal protocol Continue to monitor CBC, BMP, LFTs EGD performed showing mild to moderate antral gastritis with no active bleeding no evidence of peptic ulcer disease. No evidence of esophageal or gastric varices Alcohol cessation Thank you for allowing us to participate in the care of the patient The impression and plan of care has been dictated as directed. Dr. Mery Velazco I performed a history and examination of this patient, discussed the same with the dictator. I agree with the dictator's note ,documented as a scribe. Any additional findings or plans will be noted.
--- NOTE | 2020-06-12 13:10 | CDI ---
Documentation Clarification Form Date: 06/12/2020 CDS: Nora Joy, CCS, CCDS Admit Date: 06/10/2020 Patient Name: Anita Wilcox Discharge Date: ATTENTION: The Clinical Documentation Specialists (CDI) and [facility] Coding Staff appreciate your assistance in clarifying documentation. Please respond to the clarification below the line at the bottom and electronically sign. The CDI & [facility] Coding staff will review the response and follow-up if needed. Please note: Queries are made part of the Legal Health Record. If you have any questions, please contact the author of this message via ITS. Dear Dr. Rodney Wilson: Anemia is documented in the patient's past medical history in the 06/10 ED note and the 06/10 GI Consult without further specifity. Per the 06/11 EGD preoperative diagnosis: Acute GI bleed/severe anemia. Per the 06/11 History & Physical and subsequent Progress Note, anemia is documented as "blood loss anemia." History/Risk Factors: Anemia nos, Chronic alcoholism, Cirrhosis of the liver related to daily alcohol abuse, Congenital heart disease nos and Atrial fibrillation with shelter anticoagulant: Coumadin. Clinical indicators: Presented to the ED on 06/10 with SOB & blood in stool. Admit with EtOH abuse, Hypokalemia, GI bleed, Hyponatremia & Anemia. Hemoglobin 06/10: 8.3* - 6.7 - 8.4*. 06/11: 7.9*. 06/12: 8.1* Hematocrit 06/10: 28.2 - 23.9* - 28.1*. 06/11: 27.5*. 06/12: 28.3* 06/10 Lab: Iron 31*, % Sat 7.09*. Treatment 06/10: Transfused 1 unit PBCs, IV fluid 500 mls @ 1000 mls/hr, IV Ativan x3, CIWA protocol, po Vit B1, IV Vit K. In order to capture the severity of condition, please clarify the type of anemia and etiology if known:. Acute blood loss anemia Acute on chronic blood loss anemia Chronic blood loss anemia Chronic blood loss anemia due to chronic condition, please specify: Iron deficiency anemia Unable to determine Other, please specify (Last Form Revision: November 2019) MTDD
--- NOTE | 2020-06-12 13:23 | CDI ---
Documentation Clarification Form Date: 06/12/2020 CDS: Nora Joy, CCS, CCDS Admit Date: 06/10/2020 Patient Name: Anita Wilcox Discharge Date: ATTENTION: The Clinical Documentation Specialists (CDI) and [facility] Coding Staff appreciate your assistance in clarifying documentation. Please respond to the clarification below the line at the bottom and electronically sign. The CDI & [facility] Coding staff will review the response and follow-up if needed. Please note: Queries are made part of the Legal Health Record. If you have any questions, please contact the author of this message via ITS. Dear Dr. Rodney Wilson: CHF is documented in the 06/10 ED note & the 06/10 GI Consult in the patient's past medical history without further specificity. History/Risk Factors: Atrial Fibrillation on Coumadin, Heart Failure, Open heart surgery as an infant for congenital heart defect, Anemia, Anxiety, Depression & Former smoker. Clinical Indicators: 34 yo female, presented to the ED on 06/10 with SOB & blood in stools. Admitted with GI bleed, Anemia, EtOH abuse, Hyponatremia & Hypokalemia. VS 06/10: T 97.6, P 67 - 86, R 18, BP 91/54, PO 98 RA - 90 RA - 92 2Lnc BNP: Not done this admission. Echocardiogram Results (most recent) 02/05/2020: Moderate LVH, Systolic mildly impaired w/EF 45-50%, Right ventricle severely enlarged, Mod AR, Mild MR, Mod- severe TR, Severe pulmonary hypertension. Chest X Ray: No imaging this admission. Treatment: Home dose of Lasix po 80 mg daily. IV fluid 600 mls @ 1000 mls/hr, IV Ativan x3, po & IV Vit K, CIWA protocol. In your professional opinion, can you please clarify the type of CHF if known? Heart Failure is ruled out Systolic Heart Failure: Chronic Other Heart Failure, please specify: Unable to Determine Other, please specify (Last Revision: December 2017) MTDD
[2020-06-12 15:23] LABS: Anisocytosis Marked; Basophils # (A) 0.1 k/uL (0-0.2); Basophils % (A) 1 %; Eosinophils # (A) 0.3 k/uL (0-0.7); Eosinophils % (A) 3 %; HGB 8.8 gm/dL (11.4-16.0); Hypochromasia Marked; Lymphocytes # (A) 1.6 k/uL (1.0-4.8); Lymphocytes % (A) 18 %; MCH 21.1 pg (25.0-35.0); MCHC 27.6 g/dL (31.0-37.0); MCV 76.4 fL (80.0-100.0); Mean Platelet Volume 7.6; Microcytosis Marked; Monocytes # (A) 0.5 k/uL (0-1.0); Monocytes % (A) 6 %; Neutrophils # (A) 6.4 k/uL (1.3-7.7); Neutrophils % (A) 71 %; Platelet Count 280 k/uL (150-450); Poikilocytosis Moderate; RBC 4.18 m/uL (3.80-5.40); RDW 24.9 % (11.5-15.5)
[2020-06-12 15:36] LABS: ALT 81 U/L (4-34); AST 68 U/L (14-36); African American GFR (CKD) >90 (>60 ml/min/1.73 sqM); Albumin 4.3 g/dL (3.5-5.0); Alkaline Phosphatase 100 U/L (38-126); Anion Gap 10 mmol/L; Blood Urea Nitrogen 4 mg/dL (7-17); Calcium 9.5 mg/dL (8.4-10.2); Carbon Dioxide 24 mmol/L (22-30); Chloride 100 mmol/L (98-107); Glucose 141 mg/dL (74-99); Non-African American GFR(CKD) >90 (>60 ml/min/1.73 sqM); Potassium 4.2 mmol/L (3.5-5.1); Sodium 134 mmol/L (137-145); Total Bilirubin 4.4 mg/dL (0.2-1.3); Total Protein 6.9 g/dL (6.3-8.2)
--- NOTE | 2020-06-12 18:47 | PN ---
PROGRESS NOTE CHIEF COMPLAINT: Blood loss anemia. HISTORY OF PRESENT ILLNESS: This lady is doing about the same. Her hemoglobin is holding around 8. INR is now down below 2. REVIEW OF SYSTEMS: She is not having any abdominal pain, chest pain, shortness of breath, hematochezia, etc. PHYSICAL EXAMINATION: She does have scleral icterus and she is jaundiced. Chest is clear. Cardiac exam is unchanged. Abdomen is soft. Extremities are normal. IMPRESSION: 1. Gastrointestinal blood loss. 2. Blood loss anemia. 3. Chronic alcoholism. 4. Cirrhosis. 5. Hyperammonemia. PLAN: 1. Continue with current management. 2. Continue to follow labs, watching her hemoglobin and liver function studies as well as ammonia. MMODL / IJN: [id number] /
--- NOTE | 2020-06-13 00:17 | MISC ---
MISCELLANOUS REPORT QUERY: Acute blood loss anemia and chronic blood loss anemia both condition alcoholic gastritis and esophageal varices. Another one: Congestive heart failure, diastolic. MMODL / IJN: [id number] /
[2020-06-13] MEDS: SODIUM CHLORIDE 0.9% 1,000 ML IV SCH (02:45)
[2020-06-13] MEDS: PANTOPRAZOLE 40 MG TABLET PO SCH (06:52)
[2020-06-13] MEDS: THIAMINE 100 MG TAB PO SCH (06:52)
[2020-06-13] MEDS: LACTATED RINGERS 1,000 ML IV SCH (06:54)
[2020-06-13] MEDS: LORATADINE 10 MG TAB PO SCH (08:34)
[2020-06-13] MEDS: DIGOXIN 125 MCG TAB PO SCH (08:34)
[2020-06-13] MEDS: FERROUS SULFATE 325 MG TAB PO SCH (08:34)
[2020-06-13] MEDS: MAGNESIUM OXIDE 400 MG TAB PO SCH (08:34)
[2020-06-13] MEDS: FUROSEMIDE 80 MG TAB PO SCH (08:34)
[2020-06-13] MEDS: METOPROLOL TARTRATE 50 MG TAB PO SCH (08:34)
[2020-06-13] MEDS: ESCITALOPRAM 10 MG TAB PO SCH (08:34)
[2020-06-13] MEDS: POTASSIUM CHLORIDE ER 20 MEQ TAB.ER PO SCH (08:34)
[2020-06-13] MEDS: SPIRONOLACTONE 25 MG TAB PO SCH (08:34)
[2020-06-13 08:39] LABS: Anisocytosis Marked; HGB 8.6 gm/dL (11.4-16.0); Hypochromasia Marked; MCH 21.3 pg (25.0-35.0); MCHC 27.9 g/dL (31.0-37.0); MCV 76.5 fL (80.0-100.0); Microcytosis Marked; Platelet Count 279 k/uL (150-450); Poikilocytosis Moderate; RBC 4.05 m/uL (3.80-5.40); WBC 8.7 k/uL (3.8-10.6)
[2020-06-13 08:43] VITALS: BP 104/62; PULSE 65; RESP 18; TEMP 98
[2020-06-13 08:44] LABS: African American GFR (CKD) >90 (>60 ml/min/1.73 sqM); Anion Gap 11 mmol/L; Blood Urea Nitrogen 6 mg/dL (7-17); Calcium 9.6 mg/dL (8.4-10.2); Carbon Dioxide 20 mmol/L (22-30); Chloride 103 mmol/L (98-107); Glucose 90 mg/dL (74-99); Non-African American GFR(CKD) >90 (>60 ml/min/1.73 sqM); Potassium 4.4 mmol/L (3.5-5.1); Sodium 134 mmol/L (137-145)
[2020-06-13 08:53] LABS: RDW 25.6 % (11.5-15.5)
[2020-06-13 10:31] LABS: Albumin 3.9 g/dL (3.5-5.0); Bilirubin, Delta 1.3 mg/dL (0.0-0.2); Bilirubin,Unconjugated 2.2 mg/dL (0.0-1.1); Total Bilirubin 3.5 mg/dL (0.2-1.3); Total Protein 6.5 g/dL (6.3-8.2)
[2020-06-13 12:32] LABS: INR 1.3 (<1.2); Prothrombin Time 13.3 sec (9.0-12.0)
--- NOTE | 2020-06-13 15:00 | P.PN ---
Subjective Progress Note Date: 06/13/20 Principal diagnosis: blood streaking stool Patient seen and examined at the bedside. She is sitting up and more alert today. She denies any active bleeding, states that her bowel movement was still dark this morning. She denies any nausea, vomiting, or abdominal pain. She has status post EGT findings of mild to moderate antral gastritis with no active bleeding no esophageal or gastric varices. Objective - Vital Signs Vital signs: Vital Signs Temp 98 F 06/13/20 08:00 Pulse 65 06/13/20 08:00 Resp 18 06/13/20 08:00 BP 104/62 06/13/20 08:00 Pulse Ox 92 L 06/13/20 08:00 Intake & Output 06/12/20 06/13/20 06/13/20 18:59 06:59 18:59 Intake Total 760 100 Balance 760 100 Weight 61.3 kg Intake: Oral 760 100 Other: Voiding Method Toilet Toilet # Voids 1 2 - Exam General appearance: The patient is alert, oriented, in no acute distress. HET: Head is normocephalic and atraumatic. ENT the pink. Sclera anicteric. Neck: Supple without lymphadenopathy. Trachea midline. Heart: S1 S2. Regular rate and rhythm. Lungs: No crackles or wheezes are heard. Abdomen: Soft, nontender, nondistended with bowel sounds. No palpable organomegaly or masses. Extremities: Normal skin color and turgor. Nopedal edema. Skin: jaundice Neurological: No focal deficits. Strength and sensation are grossly intact. - Labs CBC & Chem 7: 06/13/20 07:28 06/13/20 07:28 Labs: Abnormal Lab Results - Last 24 Hours (Table) 06/12/20 06/12/20 06/12/20 Range/Units 15:05 15:05 Unknown Hgb 8.8 L (11.4-16.0) gm/dL Hct 32.0 L (34.0-46.0) % MCV 76.4 L (80.0-100.0) fL MCH 21.1 L (25.0-35.0) pg MCHC 27.6 L (31.0-37.0) g/dL RDW 24.9 H (11.5-15.5) % PT (9.0-12.0) sec INR (<1.2) Sodium 134 L (137-145) mmol/L Carbon Dioxide (22-30) mmol/L BUN 4 L (7-17) mg/dL Glucose 141 H (74-99) mg/dL Total Bilirubin 4.4 H (0.2-1.3) mg/dL Unconjugated Bilirubin (0.0-1.1) mg/dL Delta Bilirubin (0.0-0.2) mg/dL AST 68 H (14-36) U/L ALT 81 H (4-34) U/L Ammonia 42 H (<30) umol/L 06/13/20 06/13/20 06/13/20 Range/Units 07:28 07:28 07:28 Hgb 8.6 L (11.4-16.0) gm/dL Hct 31.0 L (34.0-46.0) % MCV 76.5 L (80.0-100.0) fL MCH 21.3 L (25.0-35.0) pg MCHC 27.9 L (31.0-37.0) g/dL RDW 25.6 H (11.5-15.5) % PT (9.0-12.0) sec INR (<1.2) Sodium 134 L (137-145) mmol/L Carbon Dioxide 20 L (22-30) mmol/L BUN 6 L (7-17) mg/dL Glucose (74-99) mg/dL Total Bilirubin 3.5 H (0.2-1.3) mg/dL Unconjugated Bilirubin 2.2 H (0.0-1.1) mg/dL Delta Bilirubin 1.3 H (0.0-0.2) mg/dL AST 51 H (14-36) U/L ALT 70 H (4-34) U/L Ammonia (<30) umol/L 06/13/20 Range/Units 07:28 Hgb (11.4-16.0) gm/dL Hct (34.0-46.0) % MCV (80.0-100.0) fL MCH (25.0-35.0) pg MCHC (31.0-37.0) g/dL RDW (11.5-15.5) % PT 13.3 H (9.0-12.0) sec INR 1.3 H (<1.2) Sodium (137-145) mmol/L Carbon Dioxide (22-30) mmol/L BUN (7-17) mg/dL Glucose (74-99) mg/dL Total Bilirubin (0.2-1.3) mg/dL Unconjugated Bilirubin (0.0-1.1) mg/dL Delta Bilirubin (0.0-0.2) mg/dL AST (14-36) U/L ALT (4-34) U/L Ammonia (<30) umol/L Assessment and Plan Assessment: (1) GI bleed Narrative/Plan: 34-year-old female with multiple medical comorbidities including a known history of anemia, alcohol abuse, prior hospitalizations for alcoholic hepatitis and pancreatitis who presented to the hospital due to blood per rectum. Previously she underwent endoscopic evaluation with EGD and colonoscopy in October 2019 with findings of mild gastritis on EGD and low-grade internal hemorrhoids on colonoscopy. The patient had noted some blood streaking in her stool. No perianal pain or abdominal pain. Patient's hemoglobin was 8 on presentation and subsequently fell to 6.7, however on questioning in discussion with the nursing staff patient has significant bleeding from an IV site. Suspicion is for perirectal bleeding and hemorrhoids which are the source of her bleeding, however will repeat EGD to rule out upper GI source of bleeding. Current Visit: Yes Status: Acute Code(s): K92.2 - GASTROINTESTINAL HEMORRHAGE, UNSPECIFIED SNOMED Code(s): 02179512 (2) Alcohol intoxication Current Visit: No Status: Acute Code(s): F10.129 - ALCOHOL ABUSE WITH INTOXICATION, UNSPECIFIED SNOMED Code(s): 92617427 (3) Alcoholic liver disease Current Visit: No Status: Acute Code(s): K70.9 - ALCOHOLIC LIVER DISEASE, UNSPECIFIED SNOMED Code(s): 92087954 Plan: Supportive care Diet as tolerated Continue to monitor hemoglobin and hematocrit and transfuse as needed Alcohol withdrawal protocol Continue to monitor CBC, BMP, LFTs EGD performed showing mild to moderate antral gastritis with no active bleeding no evidence of peptic ulcer disease. No evidence of esophageal or gastric varices Alcohol cessation Patient encouraged to follow up with GI services after discharge Thank you for allowing us to participate in the care of the patient The impression and plan of care has been dictated as directed. Dr. K Tumma I performed a history and examination of this patient, discussed the same with the dictator. I agree with the dictator's note ,documented as a scribe. Any a dditional findings or plans will be noted.
[2020-06-13] MEDS ORDERED: WARFARIN 2 MG TAB PO SCH (18:00)
--- NOTE | 2020-06-14 02:28 | DS ---
DISCHARGE SUMMARY CHIEF COMPLAINT: Anemia and hyperprothrombinemia. HISTORY OF PRESENT ILLNESS AND PHYSICAL EXAM: Details of this lady's history and physical can be found in the initial workup. LABORATORY STUDIES: While she was in the hospital she had laboratory studies, details of which can be found in laboratory section of her chart. COURSE IN THE HOSPITAL: After admission, she was placed on bedrest, started on intravenous fluids and her INR was corrected. She was transfused with 2 units of packed cells. It was presumed that she had GI blood loss and she was referred to Gastroenterology, who took her for scope and found no source of bleeding. The hemoglobin has remained stable at around 8.6 and she was doing well enough that it was felt that she could go home on . FINAL DIAGNOSES: 1. Blood loss anemia. 2. Hyperprothrombinemia, iatrogenic. 3. Congenital heart disease. 4. Chronic alcoholism. 5. Alcoholic encephalopathy. OPERATIONS: Endoscopy. CONSULTATION: Gastroenterology. She is improved. MMESTELAL / CARMENN: [id number] /
== END 2020-06-13 13:38 | disposition home or self-care (01) | DRG 377 ==
LOC: EC 00:08 → 6NMEDSUR 03:21 → 3SCARD 05:47
PROVIDERS: ADMIT Family Medicine; ATTEND Family Medicine
PROC: 30233N1 Transfusion of Nonautologous Red Blood Cells into Peripheral Vein, Percutaneous Approach (ICD-10-PCS; principal; 2020-06-10)
PROC: 0DJ08ZZ Inspection of Upper Intestinal Tract, Via Natural or Artificial Opening Endoscopic (ICD-10-PCS; 2020-06-11)
DX: K29.21 Alcoholic gastritis with bleeding (principal); I85.11 Secondary esophageal varices with bleeding; D62 Acute posthemorrhagic anemia; E72.20 Disorder of urea cycle metabolism, unspecified; D68.4 Acquired coagulation factor deficiency; E87.1 Hypo-osmolality and hyponatremia; I50.32 Chronic diastolic (congestive) heart failure; G31.2 Degeneration of nervous system due to alcohol; I11.0 Hypertensive heart disease with heart failure; K70.30 Alcoholic cirrhosis of liver without ascites; K70.9 Alcoholic liver disease, unspecified; F10.229 Alcohol dependence with intoxication, unspecified; I48.0 Paroxysmal atrial fibrillation; Y90.8 Blood alcohol level of 240 mg/100 ml or more; K64.8 Other hemorrhoids; E87.6 Hypokalemia; K14.0 Glossitis; F32.9 Major depressive disorder, single episode, unspecified; F41.9 Anxiety disorder, unspecified; Z91.19 Patient's noncompliance with other medical treatment and regimen; Z79.01 Long term (current) use of anticoagulants; Z79.899 Other long term (current) drug therapy; Z71.41 Alcohol abuse counseling and surveillance of alcoholic; Z56.0 Unemployment, unspecified; Z86.19 Personal history of other infectious and parasitic diseases; Z87.74 Personal history of (corrected) congenital malformations of heart and circulatory system; Z87.891 Personal history of nicotine dependence; Z87.19 Personal history of other diseases of the digestive system; Z98.890 Other specified postprocedural states
CPT/HCPCS: 36415; 43235; 80048; 80053; 80076; 80320; 81025; 82140; 82272; 82607; 82728; 82746; 83540; 83550; 84132; 84484; 85025; 85027; 85045; 85610; 85730; 86850; 86900; 86901; 86920; 99285

== ENCOUNTER 2020-06-22 16:27 | Emergency (ER) | payer OTHER ==
[2020-06-22 16:37] VITALS: BP 114/77; PULSE 82; RESP 18; TEMP 97.5
--- NOTE | 2020-06-22 17:13 | ED ---
Chest Pain HPI - General Chief Complaint: Chest Pain Stated Complaint: Chest Pain Time Seen by Provider: 06/22/20 16:40 Source: patient, old records reviewed Mode of arrival: EMS Limitations: no limitations - History of Present Illness Initial Comments: This is a 34-year-old female on this facility for evaluation chest pain or current chest pain history of heart disease, congenital heart disease. Patient coming in with severe anxiety just. Difficulty breathing and not feeling well. MD Complaint: chest pain -: days(s) Onset: during rest, during exertion Pain Location: substernal, left chest Pain Radiation: LUE Severity: moderate Severity scale (1-10): 7 Quality: heaviness Consistency: constant Improves With: nothing Worsens With: nothing Anginal Symptoms: sense of impending doom Treatments Prior to Arrival: none - Related Data Home Medications Medication Instructions Recorded Confirmed Digoxin [Digitek] 125 mcg PO DAILY 12/19/17 06/10/20 Spironolactone [Aldactone] 25 mg PO DAILY 12/19/17 06/10/20 Loratadine [Claritin] 10 mg PO DAILY 11/04/19 06/10/20 Metoprolol Tartrate [Lopressor] 200 mg PO DAILY 03/02/20 06/10/20 Escitalopram [Lexapro] 10 mg PO DAILY 03/11/20 06/10/20 Furosemide [Lasix] 80 mg PO DAILY 03/20/20 06/10/20 LORazepam [Ativan] 0.5 mg PO HS PRN 06/10/20 06/10/20 Magnesium Oxide [Mag-Ox] 400 mg PO BID 06/10/20 06/10/20 Previous Rx's Medication Instructions Recorded Pantoprazole [Protonix] 40 mg PO AC-BID #60 tablet. 11/10/19 Thiamine [Vitamin B-1] 100 mg PO BID-W/MEALS #100 tab 02/13/20 Potassium Chloride [Klor-Con 20] 40 meq PO BID 3 Days #12 tab 05/07/20 Ferrous Sulfate [Iron] 325 mg PO TID-W/MEALS #90 tab 06/13/20 Warfarin [Coumadin] 2 mg PO DAILY@1800 #30 tab 06/13/20 Allergies Allergy/AdvReac Type Severity Reaction Status Date / Time No Known Allergies Allergy Verified 06/22/20 16:33 Review of Systems ROS Statement: Those systems with pertinent positive or pertinent negative responses have been documented in the HPI. ROS Other: All systems not noted in ROS Statement are negative. EKG Findings - EKG Comments: EKG Findings:: EKG is NSR rate 78 RI 196 QRS 178 QTc 528 Past Medical History Past Medical History: Atrial Fibrillation, Heart Failure Additional Past Medical History / Comment(s): Afib with RVR, pt had transposition of great arteries as an , hypomagnesemia, anemia. History of Any Multi-Drug Resistant Organisms: ESBL Date of last positivie culture/infection: 02/25/17 ESBL-Klebsiella MDRO Source:: Urine Past Surgical History: No Surgical Hx Reported Additional Past Surgical History / Comment(s): open heart surg for transposition of great arteries, CARDIOVERTED FOR A- FIB twice Past Anesthesia/Blood Transfusion Reactions: No Reported Reaction Past Psychological History: Anxiety, Depression Smoking Status: Former smoker Past Alcohol Use History: Abuse, Daily Past Drug Use History: None Reported - Past Family History Mother Family Medical History: No Reported History Additional Family Medical History / Comment(s): Mother is healthy Father Family Medical History: No Reported History Additional Family Medical History / Comment(s): Father is healthy General Exam Limitations: no limitations General appearance: alert, in no apparent distress Head exam: Present: atraumatic, normocephalic, normal inspection Eye exam: Present: normal appearance, PERRL, EOMI. Absent: scleral icterus, conjunctival injection, periorbital swelling ENT exam: Present: normal exam, mucous membranes moist Neck exam: Present: normal inspection. Absent: tenderness, meningismus, lymphadenopathy Respiratory exam: Present: normal lung sounds bilaterally. Absent: respiratory distress, wheezes, rales, rhonchi, stridor Cardiovascular Exam: Present: regular rate, normal rhythm, normal heart sounds. Absent: systolic murmur, diastolic murmur, rubs, gallop, clicks GI/Abdominal exam: Present: soft, normal bowel sounds. Absent: distended, tenderness, guarding, rebound, rigid Extremities exam: Present: normal inspection, full ROM, normal capillary refill. Absent: tenderness, pedal edema, joint swelling, calf tenderness Back exam: Present: normal inspection Neurological exam: Present: alert, oriented X3, CN II-XII intact Psychiatric exam: Present: normal affect, normal mood Skin exam: Present: warm, dry, intact, normal color. Absent: rash Course Vital Signs 06/22/20 16:33 Temperature 97.5 F L Pulse Rate 82 Respiratory 18 Rate Blood Pressure 114/77 O2 Sat by Pulse 99 Oximetry - Reevaluation(s) Reevaluation #1: 06/22/20 17:25 Medical records reviewed Reevaluation #2: 06/22/20 18:20 Patient still with chest pain and anxiety here in the ER Reevaluation #3: 06/22/20 18:21 Spoke patient regarding findings she agrees for admission - Consultations Consultation #1: Spoke with with and agrees for admission Chest Pain MDM - MDM 34 female with recurrent chest pain severe alcohol intoxication will admit for observation, monitoring of withdrawal as well as trending of troponin Critical Care Time Critical Care Time: Yes Total Critical Care Time: 31 Disposition Clinical Impression: Atrial fibrillation, Palpitations, Elevated troponin, ETOH abuse, Panic attacks, Chest pain Disposition: ADMITTED IP TO THIS HOSP Condition: Fair Is patient prescribed a controlled substance at d/c from ED?: No Referrals: Rodney Wilson MD [Primary Care Provider] - 1-2 days
[2020-06-22] MEDS ORDERED: LORazepam 2 MG/ML INJ IV STA (17:14)
[2020-06-22 17:45] LABS: Anisocytosis Marked; Basophils # (A) 0.1 k/uL (0-0.2); Basophils % (A) 2 %; Eosinophils # (A) 0.1 k/uL (0-0.7); Eosinophils % (A) 2 %; HCT 35.4 % (34.0-46.0); HGB 10.3 gm/dL (11.4-16.0); Hypochromasia Marked; Lymphocytes # (A) 2.9 k/uL (1.0-4.8); Lymphocytes % (A) 36 %; MCH 22.4 pg (25.0-35.0); MCHC 29.1 g/dL (31.0-37.0); MCV 76.9 fL (80.0-100.0); Mean Platelet Volume 7.3; Microcytosis Marked; Monocytes # (A) 0.5 k/uL (0-1.0); Monocytes % (A) 7 %; Neutrophils # (A) 4.2 k/uL (1.3-7.7); Neutrophils % (A) 52 %; Platelet Count 493 k/uL (150-450); Poikilocytosis Slight
[2020-06-22 17:49] LABS: RDW 27.1 % (11.5-15.5)
[2020-06-22 17:52] LABS: ALT 24 U/L (4-34); AST 35 U/L (14-36); African American GFR (CKD) >90 (>60 ml/min/1.73 sqM); Albumin 4.7 g/dL (3.5-5.0); Alkaline Phosphatase 98 U/L (38-126); Anion Gap 17 mmol/L; Blood Urea Nitrogen 3 mg/dL (7-17); Calcium 9.6 mg/dL (8.4-10.2); Carbon Dioxide 24 mmol/L (22-30); Chloride 102 mmol/L (98-107); Creatine Kinase 34 U/L (30-135); Glucose 100 mg/dL (74-99); Magnesium 1.5 mg/dL (1.6-2.3); Non-African American GFR(CKD) >90 (>60 ml/min/1.73 sqM); Potassium 3.3 mmol/L (3.5-5.1); Sodium 143 mmol/L (137-145); Total Bilirubin 2.6 mg/dL (0.2-1.3); Total Protein 7.3 g/dL (6.3-8.2)
[2020-06-22 17:53] LABS: INR 1.6 (<1.2); Partial Thromboplastin Time 26.8 sec (22.0-30.0); Prothrombin Time 15.9 sec (9.0-12.0)
--- NOTE | 2020-06-22 17:55 | XR ---
EXAMINATION TYPE: XR chest 2V DATE OF EXAM: 06/22/2020 COMPARISON: 05/06/2020 HISTORY: Chest pain TECHNIQUE: 2 views FINDINGS: Heart is slightly enlarged. There is mild pulmonary congestion. There is no pleural effusio n. There are chest leads. There are sternal wires. IMPRESSION: Cardiomegaly and mild pelvic congestion but no overt heart failure. No change.
[2020-06-22 18:02] LABS: Alcohol 328 mg/dL
[2020-06-22] MEDS ORDERED: THIAMINE 100 MG/ML 2 ML VIAL IM STA (18:19)
[2020-06-22] MEDS ORDERED: ASPIRIN 81 MG PO STA (18:19)
[2020-06-22] MEDS ORDERED: NITROGLYCERIN SL TABS 0.4 MG TAB SUBLINGUAL PRN (18:19)
[2020-06-22] MEDS ORDERED: LORazepam 2 MG/ML INJ IV PRN ×3 (18:19)
[2020-06-22 18:27] LABS: Poikilocytosis (M) Present
[2020-06-22] MEDS ORDERED: SODIUM CHLORIDE 0.9% 1,000 ML IV SCH (18:30)
[2020-06-23] MEDS ORDERED: THIAMINE 100 MG TAB PO SCH (07:30)
[2020-06-23] MEDS ORDERED: ASPIRIN 325 MG TAB PO SCH (09:00)
--- NOTE | 2020-06-23 12:18 | HP ---
HISTORY AND PHYSICAL DATE OF ADMISSION: 06/22/2020. CHIEF COMPLAINT: Acute alcohol intoxication and chronic alcoholism with history of congenital heart disease. HISTORY OF PRESENT ILLNESS: This is another admission for this lady who is a chronic alcoholic and also has developed chronic anemia due to GI blood loss. She came to the emergency room intoxicated once again with a blood alcohol over 3. REVIEW OF SYSTEMS: Not obtained. Past medical history, family history, personal and social histories presumed unchanged. PHYSICAL EXAM: Not performed. The patient signed out AMA before she could be examined. IMPRESSION: 1. Acute alcohol intoxication. 2. Congenital heart disease. 3. Chronic anemia due to gastrointestinal blood loss. 4. Alcoholic hepatitis. PLAN: 1. Bed rest. 2. IV fluids. 3. Treat for alcohol intoxication and DTs. JOSE ANGEL / CAROLYN: [id number] /
--- NOTE | 2020-06-23 12:24 | DS ---
DISCHARGE SUMMARY DAY OF ADMISSION: June 22, 2020. DAY OF DISCHARGE: June 22, 2020. CHIEF COMPLAINT: Acute alcohol intoxication. HISTORY OF PRESENT ILLNESS AND PHYSICAL EXAMINATION: Details of this lady's history and physical can be found in the initial workup. LABORATORY STUDIES: While she was in the hospital, she had laboratory studies which can be found in her chart. Blood alcohol was over 3. COURSE IN HOSPITAL: After admission and when she was being taken to the floor, she signed out against AMA. She has signed out AGAINST MEDICAL ADVICE. FINAL DIAGNOSES: 1. Acute alcohol intoxication. 2. Congenital heart disease. 3. Alcoholic hepatitis. 4. Cirrhosis. 5. Chronic anemia from gastrointestinal blood loss. OPERATIONS: None. CONSULTATION: None. MMODL / IJN: [id number] /
== END 2020-06-22 19:08 | disposition other institution (70) ==
LOC: EC 16:27 → 3SCARD 18:19 → UNDOADMOB 18:19
DX: I48.91 Unspecified atrial fibrillation (principal); F10.129 Alcohol abuse with intoxication, unspecified; F41.0 Panic disorder [episodic paroxysmal anxiety]; R79.89 Other specified abnormal findings of blood chemistry; I50.9 Heart failure, unspecified; F41.9 Anxiety disorder, unspecified; F32.9 Major depressive disorder, single episode, unspecified; Y90.9 Presence of alcohol in blood, level not specified; Z79.899 Other long term (current) drug therapy; Z98.890 Other specified postprocedural states; Z87.891 Personal history of nicotine dependence
CPT/HCPCS: 36415; 93005; 83880; 80053; 82550; 83690; 83735; 84484; 85025; 85610; 85730; 71046; 99291; 96374; G0480; J2060; 80320

== ENCOUNTER 2020-06-24 18:04 | Observation (INO) | payer OTHER ==
[~2020-06-24 18:04] MED LIST changes: -DEXAMETHASONE 4 MG TAB PO ONE; +THIAMINE 100 MG TAB PO SCH
[2020-06-24] MEDS ORDERED: SODIUM CHLORIDE 0.9% 1,000 ML IV STA (18:29)
[2020-06-24] MEDS ORDERED: ASPIRIN 81 MG PO STA (18:29)
[2020-06-24] MEDS ORDERED: NITROGLYCERIN SL TABS 0.4 MG TAB SUBLINGUAL STA (18:29)
--- NOTE | 2020-06-24 18:43 | ED ---
Chest Pain HPI - General Chief Complaint: Chest Pain Stated Complaint: Chest Pain Time Seen by Provider: 06/24/20 18:04 Source: patient, EMS, RN notes reviewed, old records reviewed Mode of arrival: EMS Limitations: no limitations - History of Present Illness Initial Comments: This is a 34-year-old female history of heart disease who was brought in by EMS because of chest pain. She complained of midsternal chest heaviness. 04/05 severity she is also very anxious she states she ran out of her a as up a.m. 1 mg 3 days ago. She is unsure whether this is anxiety or her heart condition. She did have a normal EKG per paramedics. Review of old was appears consistent this time. No fevers chills nausea vomiting sweats cough or other symptoms. She was recently evaluated here and at that time did have alcohol onboard. MD Complaint: chest pain, other - Related Data Home Medications Medication Instructions Recorded Confirmed Digoxin [Digitek] 125 mcg PO DAILY 12/19/17 06/10/20 Spironolactone [Aldactone] 25 mg PO DAILY 12/19/17 06/10/20 Loratadine [Claritin] 10 mg PO DAILY 11/04/19 06/10/20 Metoprolol Tartrate [Lopressor] 200 mg PO DAILY 03/02/20 06/10/20 Escitalopram [Lexapro] 10 mg PO DAILY 03/11/20 06/10/20 Furosemide [Lasix] 80 mg PO DAILY 03/20/20 06/10/20 LORazepam [Ativan] 0.5 mg PO HS PRN 06/10/20 06/10/20 Magnesium Oxide [Mag-Ox] 400 mg PO BID 06/10/20 06/10/20 Previous Rx's Medication Instructions Recorded Pantoprazole [Protonix] 40 mg PO AC-BID #60 tablet. 11/10/19 Thiamine [Vitamin B-1] 100 mg PO BID-W/MEALS #100 tab 02/13/20 Potassium Chloride [Klor-Con 20] 40 meq PO BID 3 Days #12 tab 05/07/20 Ferrous Sulfate [Iron] 325 mg PO TID-W/MEALS #90 tab 06/13/20 Warfarin [Coumadin] 2 mg PO DAILY@1800 #30 tab 06/13/20 Allergies Allergy/AdvReac Type Severity Reaction Status Date / Time No Known Allergies Allergy Verified 06/24/20 18:19 Review of Systems ROS Statement: Those systems with pertinent positive or pertinent negative responses have been documented in the HPI. ROS Other: All systems not noted in ROS Statement are negative. 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 History of Any Multi-Drug Resistant Organisms: ESBL Date of last positivie culture/infection: 02/25/17 ESBL-Klebsiella MDRO Source:: Urine Past Surgical History: No Surgical Hx Reported Additional Past Surgical History / Comment(s): open heart surg for transposition of great arteries, CARDIOVERTED FOR A- FIB twice Past Anesthesia/Blood Transfusion Reactions: No Reported Reaction Past Psychological History: Anxiety, Depression Smoking Status: Former smoker Past Alcohol Use History: Abuse, Daily Past Drug Use History: None Reported - Past Family History Mother Family Medical History: No Reported History Additional Family Medical History / Comment(s): Mother is healthy Father Family Medical History: No Reported History Additional Family Medical History / Comment(s): Father is healthy General Exam - General Exam Comments Initial Comments: This a well-developed well-nourished awake alert oriented history female she does demonstrate anxiousness. Limitations: no limitations General appearance: alert, anxious Head exam: Present: atraumatic, normocephalic, normal inspection Eye exam: Present: normal appearance, PERRL, EOMI. Absent: scleral icterus, conjunctival injection, periorbital swelling ENT exam: Present: normal exam, mucous membranes moist Neck exam: Present: normal inspection. Absent: tenderness, meningismus, lymphadenopathy Respiratory exam: Present: normal lung sounds bilaterally, chest wall tenderness. Absent: respiratory distress, wheezes, rales, rhonchi, stridor Cardiovascular Exam: Present: regular rate, normal rhythm, normal heart sounds. Absent: systolic murmur, diastolic murmur, rubs, gallop, clicks GI/Abdominal exam: Present: soft, tenderness (Tennis palpation along the upper abdomen no guarding rebound masses or bruits), normal bowel sounds. Absent: distended, guarding, rebound, rigid Extremities exam: Present: normal inspection, full ROM, normal capillary refill. Absent: tenderness, pedal edema, joint swelling, calf tenderness Back exam: Present: normal inspection Neurological exam: Present: alert, oriented X3, CN II-XII intact Psychiatric exam: Present: normal affect, normal mood Skin exam: Present: warm, dry, intact, normal color. 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 He did have elevation of her troponin as well as elevation of the d-dimer. CT is negative for evidence of acute pulmonary embolus or acute findings. Please see the complete report. Chest Pain MDM - MDM I did discuss findings with patient and with Dr. Wilson. Patient be admitted with cardiology consultation. CT chest negative for pulmonary emboli. Patient will be admitted she will placed on the alcohol withdrawal protocol Critical Care Time Critical Care Time: Yes Total Critical Care Time: 31 Critical Care Time: 31 minutes of critical care time including initial presentation with history physical labs x-rays reevaluation patient reveals old charting was available discussed with the admitting physician admission orders and documentation of the above. Disposition Clinical Impression: Unstable angina, Alcohol intoxication, Elevated troponin, Elevated d-dimer Disposition: ADMITTED IP TO THIS HOSP Condition: Fair Referrals: Rodney Wilson MD [Primary Care Provider] - 1-2 days
[2020-06-24] MEDS ORDERED: LORazepam 2 MG/ML INJ IV STA ×2 (18:50→21:16)
[2020-06-24 19:03] LABS: ALT 18 U/L (4-34); AST 39 U/L (14-36); African American GFR (CKD) >90 (>60 ml/min/1.73 sqM); Albumin 4.1 g/dL (3.5-5.0); Alkaline Phosphatase 93 U/L (38-126); Anion Gap 14 mmol/L; Blood Urea Nitrogen 5 mg/dL (7-17); Carbon Dioxide 21 mmol/L (22-30); Chloride 101 mmol/L (98-107); Creatine Kinase 36 U/L (30-135); Glucose 111 mg/dL (74-99); Magnesium 1.4 mg/dL (1.6-2.3); Non-African American GFR(CKD) >90 (>60 ml/min/1.73 sqM); Potassium 3.7 mmol/L (3.5-5.1); Sodium 136 mmol/L (137-145); Total Bilirubin 2.4 mg/dL (0.2-1.3); Total Protein 6.6 g/dL (6.3-8.2)
[2020-06-24 19:07] LABS: Anisocytosis Marked; HCT 33.6 % (34.0-46.0); HGB 9.8 gm/dL (11.4-16.0); Hypochromasia Marked; MCH 21.9 pg (25.0-35.0); MCHC 29.2 g/dL (31.0-37.0); Mean Platelet Volume 6.9; Microcytosis Marked; Platelet Count 610 k/uL (150-450); Poikilocytosis Slight; RBC 4.49 m/uL (3.80-5.40); WBC 6.9 k/uL (3.8-10.6)
[2020-06-24 19:09] LABS: INR 2.1 (<1.2); Partial Thromboplastin Time 29.5 sec (22.0-30.0); Prothrombin Time 20.9 sec (9.0-12.0)
[2020-06-24 19:17] LABS: D-Dimer 1.51 mg/L FEU (<0.60)
--- NOTE | 2020-06-24 19:20 | XR ---
EXAMINATION TYPE: XR chest 2V DATE OF EXAM: 06/24/2020 COMPARISON: 06/22/2020 HISTORY: Chest pain TECHNIQUE: FINDINGS: Heart is enlarged. There is mild pulmonary vascular congestion. There is no definite pleura l effusion. Mediastinum is normal. Bony thorax is intact. There are sternal wires. IMPRESSION: Moderate cardiomegaly and increased pulmonary vascularity similar to recent exam. There i s probably mild heart failure.
[2020-06-24 19:22] LABS: Alcohol 415 mg/dL
[2020-06-24 19:25] LABS: Anisocytosis (M) Present; Basophils # (M) 0.07 k/uL (0-0.2); Lymphocytes # (M) 2.97 k/uL (1.0-4.8); Monocytes # (M) 0.35 k/uL (0-1.0); Neutrophils # (M) 3.52 k/uL (1.3-7.7); Neutrophils % (M) 51 %; Nucleated Red Blood Cells 0 /100 WBC (0-0); Ovalocytes Present; Polychromasia Present; Total Cells Counted 100
--- NOTE | 2020-06-24 20:51 | CT ---
EXAMINATION TYPE: CT angio chest DATE OF EXAM: 06/24/2020 COMPARISON: 03/31/2019 HISTORY: Elevated d-dimer. CT DLP: 273.2 mGycm Automated exposure control for dose reduction was used. CONTRAST: Performed with IV Contrast, patient injected with 100ml mL of Isovue 370. There are 3-D post processed images. Heart is enlarged. There is some reflux of contrast into the inferior vena cava. There is very large main pulmonary artery. There are large central pulmonary arteries consistent with some pulmonary hype rtension. I see no filling defect. There is transposition of the great vessels and the aorta arises f rom the anterior right ventricle and pulmonary artery arises from the left ventricle. There is coarse maribell of pulmonary interstitial markings. There is no evidence of a pulmonary mass. The bony thorax is intact. IMPRESSION: No evidence of pulmonary embolism. Large pulmonary arteries consistent with pulmonary hypertension. T ransposition of the great vessels. Mild pulmonary interstitial edema could relate to some degree of h eart failure. No change compared to old exam.
[2020-06-24] MEDS ORDERED: NITROGLYCERIN SL TABS 0.4 MG TAB SUBLINGUAL PRN (21:38)
[2020-06-24] MEDS ORDERED: THIAMINE 100 MG/ML 2 ML VIAL IM STA ×2 (21:44→22:00)
[2020-06-24] MEDS ORDERED: LORazepam 2 MG/ML INJ IV PRN ×3 (21:44)
[2020-06-24] MEDS ORDERED: SODIUM CHLORIDE 0.9% 1,000 ML IV SCH (21:45)
--- NOTE | 2020-06-24 21:46 | ED ---
Medical Decision Making - Lab Data Result diagrams: 06/24/20 18:37 06/24/20 18:37 Lab Results 06/24/20 06/24/20 06/24/20 Range/Units 18:37 18:37 18:37 WBC 6.9 (3.8-10.6) k/uL RBC 4.49 (3.80-5.40) m/uL Hgb 9.8 L (11.4-16.0) gm/dL Hct 33.6 L (34.0-46.0) % MCV 75.0 L (80.0-100.0) fL MCH 21.9 L (25.0-35.0) pg MCHC 29.2 L (31.0-37.0) g/dL RDW 27.0 H (11.5-15.5) % Plt Count 610 H (150-450) k/uL Neutrophils % (Manual) 51 % Lymphocytes % (Manual) 43 % Monocytes % (Manual) 5 % Basophils % (Manual) 1 % Neutrophils # (Manual) 3.52 (1.3-7.7) k/uL Lymphocytes # (Manual) 2.97 (1.0-4.8) k/uL Monocytes # (Manual) 0.35 (0-1.0) k/uL Basophils # (Manual) 0.07 (0-0.2) k/uL Nucleated RBCs 0 (0-0) /100 WBC Manual Slide Review Performed Polychromasia Present Hypochromasia Marked Poikilocytosis Slight Anisocytosis Marked Anisocytosis (manual) Present Microcytosis Marked Ovalocytes Present PT 20.9 H (9.0-12.0) sec INR 2.1 H (<1.2) APTT 29.5 (22.0-30.0) sec D-Dimer 1.51 H (<0.60) mg/L FEU Sodium 136 L (137-145) mmol/L Potassium 3.7 (3.5-5.1) mmol/L Chloride 101 (98-107) mmol/L Carbon Dioxide 21 L (22-30) mmol/L Anion Gap 14 mmol/L BUN 5 L (7-17) mg/dL Creatinine 0.57 (0.52-1.04) mg/dL Est GFR (CKD-EPI)AfAm >90 (>60 ml/min/1.73 sqM) Est GFR (CKD-EPI)NonAf >90 (>60 ml/min/1.73 sqM) Glucose 111 H (74-99) mg/dL Calcium 9.0 (8.4-10.2) mg/dL Magnesium 1.4 L (1.6-2.3) mg/dL Total Bilirubin 2.4 H (0.2-1.3) mg/dL AST 39 H (14-36) U/L ALT 18 (4-34) U/L Alkaline Phosphatase 93 (38-126) U/L Creatine Kinase 36 (30-135) U/L Troponin I (0.000-0.034) ng/mL Total Protein 6.6 (6.3-8.2) g/dL Albumin 4.1 (3.5-5.0) g/dL Lipase 536 H (23-300) U/L Serum Alcohol 415 H* mg/dL 06/24/20 Range/Units 18:37 WBC (3.8-10.6) k/uL RBC (3.80-5.40) m/uL Hgb (11.4-16.0) gm/dL Hct (34.0-46.0) % MCV (80.0-100.0) fL MCH (25.0-35.0) pg MCHC (31.0-37.0) g/dL RDW (11.5-15.5) % Plt Count (150-450) k/uL Neutrophils % (Manual) % Lymphocytes % (Manual) % Monocytes % (Manual) % Basophils % (Manual) % Neutrophils # (Manual) (1.3-7.7) k/uL Lymphocytes # (Manual) (1.0-4.8) k/uL Monocytes # (Manual) (0-1.0) k/uL Basophils # (Manual) (0-0.2) k/uL Nucleated RBCs (0-0) /100 WBC Manual Slide Review Polychromasia Hypochromasia Poikilocytosis Anisocytosis Anisocytosis (manual) Microcytosis Ovalocytes PT (9.0-12.0) sec INR (<1.2) APTT (22.0-30.0) sec D-Dimer (<0.60) mg/L FEU Sodium (137-145) mmol/L Potassium (3.5-5.1) mmol/L Chloride (98-107) mmol/L Carbon Dioxide (22-30) mmol/L Anion Gap mmol/L BUN (7-17) mg/dL Creatinine (0.52-1.04) mg/dL Est GFR (CKD-EPI)AfAm (>60 ml/min/1.73 sqM) Est GFR (CKD-EPI)NonAf (>60 ml/min/1.73 sqM) Glucose (74-99) mg/dL Calcium (8.4-10.2) mg/dL Magnesium (1.6-2.3) mg/dL Total Bilirubin (0.2-1.3) mg/dL AST (14-36) U/L ALT (4-34) U/L Alkaline Phosphatase (38-126) U/L Creatine Kinase (30-135) U/L Troponin I 0.080 H* (0.000-0.034) ng/mL Total Protein (6.3-8.2) g/dL Albumin (3.5-5.0) g/dL Lipase (23-300) U/L Serum Alcohol mg/dL Disposition Clinical Impression: Unstable angina, Alcohol intoxication, Elevated troponin, Elevated d-dimer, Hypomagnesemia Disposition: ADMITTED IP TO THIS HOSP Condition: Fair Referrals: Rodney Wilson MD [Primary Care Provider] - 1-2 days
[2020-06-24] MEDS: MAGNESIUM SULFATE-D5W PMX 1 GM in DEXTROSE/WATER 1 100ML.BAG IVPB SCH ×2 (22:04→23:38)
[2020-06-24] MEDS ORDERED: LORazepam 0.5 MG TAB PO PRN (22:30)
[2020-06-24 23:35] VITALS: PULSE 74
[2020-06-25 00:21] VITALS: RESP 18
[2020-06-25 03:05] LABS: Cholesterol 81 mg/dL (<200); HDL Cholesterol 22 mg/dL (40-60); LDL Cholesterol,Calculated 33 mg/dL (0-99); Triglycerides 132 mg/dL (<150)
[2020-06-25 05:52] VITALS: BP 108/70; TEMP 97.5
[2020-06-25] MEDS ORDERED: PANTOPRAZOLE 40 MG TABLET PO SCH (07:30)
[2020-06-25] MEDS ORDERED: FERROUS SULFATE 325 MG TAB PO SCH (07:30)
[2020-06-25] MEDS ORDERED: THIAMINE 100 MG TAB PO SCH ×2 (07:30)
[2020-06-25 07:31] LABS: Anisocytosis Marked; Basophils # (A) 0.1 k/uL (0-0.2); Basophils % (A) 2 %; Eosinophils # (A) 0.2 k/uL (0-0.7); Eosinophils % (A) 3 %; HCT 33.5 % (34.0-46.0); HGB 9.7 gm/dL (11.4-16.0); Hypochromasia Marked; Lymphocytes # (A) 2.2 k/uL (1.0-4.8); Lymphocytes % (A) 35 %; MCH 22.5 pg (25.0-35.0); MCHC 28.9 g/dL (31.0-37.0); MCV 77.8 fL (80.0-100.0); Mean Platelet Volume 6.6; Microcytosis Marked; Monocytes # (A) 0.4 k/uL (0-1.0); Monocytes % (A) 7 %; Neutrophils # (A) 3.4 k/uL (1.3-7.7); Neutrophils % (A) 52 %; Platelet Count 474 k/uL (150-450); Poikilocytosis Slight; RBC 4.31 m/uL (3.80-5.40); WBC 6.5 k/uL (3.8-10.6)
[2020-06-25 07:40] LABS: African American GFR (CKD) >90 (>60 ml/min/1.73 sqM); Anion Gap 13 mmol/L; Blood Urea Nitrogen 3 mg/dL (7-17); Carbon Dioxide 24 mmol/L (22-30); Chloride 102 mmol/L (98-107); Glucose 82 mg/dL (74-99); Magnesium 1.9 mg/dL (1.6-2.3); Non-African American GFR(CKD) >90 (>60 ml/min/1.73 sqM); Potassium 3.7 mmol/L (3.5-5.1); Sodium 139 mmol/L (137-145)
[2020-06-25 07:44] LABS: RDW 26.2 % (11.5-15.5)
[2020-06-25] MEDS ORDERED: ESCITALOPRAM 10 MG TAB PO SCH (09:00)
[2020-06-25] MEDS ORDERED: MAGNESIUM OXIDE 400 MG TAB PO SCH (09:00)
[2020-06-25] MEDS ORDERED: METOPROLOL TARTRATE 50 MG TAB PO SCH (09:00)
[2020-06-25] MEDS ORDERED: LORATADINE 10 MG TAB PO SCH (09:00)
[2020-06-25] MEDS ORDERED: FUROSEMIDE 40 MG TAB PO SCH (09:00)
[2020-06-25] MEDS ORDERED: POTASSIUM CHLORIDE ER 20 MEQ TAB.ER PO SCH (09:00)
[2020-06-25] MEDS ORDERED: ASPIRIN 325 MG TAB PO SCH (09:00)
[2020-06-25] MEDS ORDERED: DIGOXIN 125 MCG TAB PO SCH (09:00)
[2020-06-25] MEDS ORDERED: SPIRONOLACTONE 25 MG TAB PO SCH (09:00)
[2020-06-25] MEDS ORDERED: WARFARIN 2 MG TAB PO SCH (18:00)
--- NOTE | 2020-06-25 18:38 | HP ---
HISTORY AND PHYSICAL DATE OF ADMISSION: 06/24/2020 CHIEF COMPLAINT: Acute alcohol intoxication and dehydration. HISTORY OF PRESENT ILLNESS: This lady's history was obtained in the emergency room. She signed out before she was seen. This is her usual habit. Review of systems, past medical history, family and personal and social histories are all unchanged otherwise. Physical exam was performed in the emergency room, but not by me because she signed out. She was admitted with the diagnoses: 1. Acute alcohol intoxication. 2. Chronic alcoholism. 3. Congenital heart disease. PLAN: Her plan would have been to start her on CIWA protocol with IV fluids until she detoxed, but she signed out AMA. MMYAMINI / CARMENN: [id number] /
--- NOTE | 2020-06-26 09:16 | DS ---
DISCHARGE SUMMARY ADMISSION DATE: 06/24/2020. DATE OF DISCHARGE: 06/25/2020 CHIEF COMPLAINT: 1. Acute alcohol intoxication. 2. Chronic alcoholism. 3. Congenital heart disease. HISTORY OF PRESENT ILLNESS AND PHYSICAL EXAMINATION: Details of this lady's history and physical can be found in her initial evaluation. LABORATORY STUDIES: May be found in the laboratory section of her chart. COURSE IN THE HOSPITAL: After admission, she was placed on bedrest with IV fluids. The following morning she signed out AMA. FINAL DIAGNOSES: 1. Acute alcohol intoxication. 2. Chronic alcoholism. 3. Congenital heart disease. OPERATIONS: None. CONSULTATION: None. She is not improved. She signed out AMA. MMODL / IJN: [id number] /
== END 2020-06-25 08:15 | disposition left against medical advice (07) ==
LOC: EC 18:04 → 3SCARD 21:43
PROVIDERS: ADMIT Family Medicine; ATTEND Family Medicine
DX: R07.9 Chest pain, unspecified (principal); E83.42 Hypomagnesemia; R79.89 Other specified abnormal findings of blood chemistry; E86.0 Dehydration; F10.229 Alcohol dependence with intoxication, unspecified; I48.91 Unspecified atrial fibrillation; I50.9 Heart failure, unspecified; Z79.01 Long term (current) use of anticoagulants; Z87.891 Personal history of nicotine dependence; Q24.9 Congenital malformation of heart, unspecified
CPT/HCPCS: 96376 ×2; 96361; 96365; 96366; 96372; 96375; 99291; 36415; 93005 ×2; 85379; 80061; 83880; 80053; 80048; 82550; 83690; 83735 ×2; 84484 ×2; 85025 ×2; 85610; 85730; 71046; 71275; G0378 ×2; G0480; J2060 ×2; J3411; J3475; Q9967; 80320

== ENCOUNTER 2020-06-27 14:58 | Emergency (ER) | payer OTHER ==
[2020-06-27 15:05] VITALS: TEMP 98.6
--- NOTE | 2020-06-27 15:25 | ED ---
Anxiety HPI - General Chief Complaint: Anxiety Stated Complaint: CHEST PAIN Time Seen by Provider: 06/27/20 15:14 Source: patient Mode of arrival: ambulatory - History of Present Illness Initial Comments: patient a 34-year-old female with history of alcohol abuse, substance abuse, anxiety, congenital heart problems presenting to emergency Department with a chief complaint of anxiety chest pain. Patient reports she been having right- sided chest pain without any radiation since yesterday. She denies any shortness of breath. She reports increased anxiety because she has not been taking her Ativan over the last 4 days. States she is out of the medication. She denies drinking alcohol today. Does report nausea but denies any vomiting. Does report some lightheadedness but denies dizziness. Denies any visual changes or headaches. - Related Data Home Medications: Home Medications Medication Instructions Recorded Confirmed Digoxin [Digitek] 125 mcg PO DAILY 12/19/17 06/27/20 Spironolactone [Aldactone] 25 mg PO DAILY 12/19/17 06/27/20 Loratadine [Claritin] 10 mg PO DAILY 11/04/19 06/27/20 Metoprolol Tartrate [Lopressor] 200 mg PO DAILY 03/02/20 06/27/20 Escitalopram [Lexapro] 10 mg PO DAILY 03/11/20 06/27/20 Furosemide [Lasix] 80 mg PO DAILY 03/20/20 06/27/20 LORazepam [Ativan] 0.5 mg PO HS PRN 06/10/20 06/27/20 Magnesium Oxide [Mag-Ox] 400 mg PO BID 06/10/20 06/27/20 Ferrous Sulfate [Iron] 325 mg PO AC-TID 06/27/20 06/27/20 Previous Rx's Medication Instructions Recorded Pantoprazole [Protonix] 40 mg PO AC-BID #60 tablet. 11/10/19 Thiamine [Vitamin B-1] 100 mg PO BID-W/MEALS #100 tab 02/13/20 Potassium Chloride [Klor-Con 20] 40 meq PO BID 3 Days #12 tab 05/07/20 Warfarin [Coumadin] 2 mg PO DAILY@1800 #30 tab 06/13/20 Allergies/Adverse Reactions: Allergies Allergy/AdvReac Type Severity Reaction Status Date / Time No Known Allergies Allergy Verified 06/27/20 17:01 Review of Systems ROS Statement: Those systems with pertinent positive or pertinent negative responses have been documented in the HPI. ROS Other: All systems not noted in ROS Statement are negative. Past Medical History Past Medical History: Atrial Fibrillation, Heart Failure Additional Past Medical History / Comment(s): Afib with RVR, pt had transposition of great arteries as an , hypomagnesemia, anemia. History of Any Multi-Drug Resistant Organisms: ESBL Date of last positivie culture/infection: 02/25/17 ESBL-Klebsiella MDRO Source:: Urine Past Surgical History: No Surgical Hx Reported Additional Past Surgical History / Comment(s): open heart surg for transposition of great arteries, CARDIOVERTED FOR A- FIB twice Past Anesthesia/Blood Transfusion Reactions: No Reported Reaction Past Psychological History: Anxiety, Depression Smoking Status: Former smoker Past Alcohol Use History: Abuse, Daily Past Drug Use History: None Reported - Past Family History Mother Family Medical History: No Reported History Additional Family Medical History / Comment(s): Mother is healthy Father Family Medical History: No Reported History Additional Family Medical History / Comment(s): Father is healthy General Exam Limitations: no limitations General appearance: alert, in no apparent distress, anxious Head exam: Present: atraumatic (No signs of trauma to the head or face.), normocephalic, normal inspection Eye exam: Present: normal appearance, PERRL, EOMI Pupils: Present: normal accommodation ENT exam: Present: normal exam, normal oropharynx, mucous membranes dry, TM's normal bilaterally, normal external ear exam. Absent: mucous membranes moist Neck exam: Present: normal inspection, full ROM. Absent: tenderness Respiratory exam: Present: normal lung sounds bilaterally, chest wall tenderness (Mild tenderness on the right breast in the region of ecchymosis ). Absent: respiratory distress, wheezes, rales Cardiovascular Exam: Present: regular rate, normal rhythm, normal heart sounds GI/Abdominal exam: Present: soft. Absent: distended, tenderness Extremities exam: Present: normal inspection, full ROM, normal capillary refill, other (+2 ulnar and radial pulses bilateral.). Absent: tenderness Back exam: Present: normal inspection, full ROM. Absent: tenderness, CVA tenderness (R), CVA tenderness (L) Neurological exam: Present: alert, oriented X3, normal gait Psychiatric exam: Present: normal affect, anxious Skin exam: Present: warm, dry, intact, normal color Course Vital Signs 06/27/20 06/27/20 15:00 19:39 Temperature 98.6 F Pulse Rate 110 H 114 H Respiratory 16 18 Rate Blood Pressure 116/89 117/93 O2 Sat by Pulse 95 100 Oximetry Medical Decision Making - Medical Decision Making Patient is a 34-year-old female with history of alcohol abuse, substance abuse, congenital heart failure, anxiety presents to the emergency department with a chief complaint of exam and chest pain. Patient is well-known to the emergency department for recurrent visits. Patient denied drinking alcohol but her serum alcohol levels are over 300. She does appear intoxicated on evaluation. She has an elevated troponin of 0.088 which is exactly the same as her most recent troponin. This appears to be her baseline. Patient was given Ativan for anxiety. On reevaluation she reports feeling much better. Patient was offered admission considering her elevated troponin levels, she declined. Patient almost always refuses admission. She wants to be discharged. Return parameters thoroughly discussed with patient who is understanding and agreeable. Case discussed with physician. - Lab Data Result diagrams: 06/27/20 17:26 06/27/20 15:41 Lab Results 06/27/20 06/27/20 06/27/20 Range/Units 15:41 17:26 17:26 WBC (3.8-10.6) k/uL RBC (3.80-5.40) m/uL Hgb (11.4-16.0) gm/dL Hct (34.0-46.0) % MCV (80.0-100.0) fL MCH (25.0-35.0) pg MCHC (31.0-37.0) g/dL RDW (11.5-15.5) % Plt Count (150-450) k/uL Neutrophils % % Lymphocytes % % Monocytes % % Eosinophils % % Basophils % % Neutrophils # (1.3-7.7) k/uL Lymphocytes # (1.0-4.8) k/uL Monocytes # (0-1.0) k/uL Eosinophils # (0-0.7) k/uL Basophils # (0-0.2) k/uL Manual Slide Review Hypochromasia Poikilocytosis (manual Anisocytosis Microcytosis PT 20.2 H (9.0-12.0) sec INR 2.1 H (<1.2) APTT 29.2 (22.0-30.0) sec Sodium 133 L (137-145) mmol/L Potassium 3.4 L (3.5-5.1) mmol/L Chloride 96 L (98-107) mmol/L Carbon Dioxide 19 L (22-30) mmol/L Anion Gap 18 mmol/L BUN <2 L (7-17) mg/dL Creatinine 0.49 L (0.52-1.04) mg/dL Est GFR (CKD-EPI)AfAm >90 (>60 ml/min/1.73 sqM) Est GFR (CKD-EPI)NonAf >90 (>60 ml/min/1.73 sqM) Glucose 109 H (74-99) mg/dL Calcium 9.1 (8.4-10.2) mg/dL Magnesium 1.5 L (1.6-2.3) mg/dL Total Bilirubin 3.9 H (0.2-1.3) mg/dL AST 38 H (14-36) U/L ALT 18 (4-34) U/L Alkaline Phosphatase 130 H (38-126) U/L Troponin I 0.088 H* (0.000-0.034) ng/mL NT-Pro-B Natriuret Pep pg/mL Total Protein 6.9 (6.3-8.2) g/dL Albumin 4.3 (3.5-5.0) g/dL Serum Alcohol 315 H* mg/dL 06/27/20 06/27/20 Range/Units 17:26 17:26 WBC 11.3 H (3.8-10.6) k/uL RBC 4.50 (3.80-5.40) m/uL Hgb 10.1 L (11.4-16.0) gm/dL Hct 34.6 (34.0-46.0) % MCV 76.9 L (80.0-100.0) fL MCH 22.4 L (25.0-35.0) pg MCHC 29.2 L (31.0-37.0) g/dL RDW 25.5 H (11.5-15.5) % Plt Count 487 H (150-450) k/uL Neutrophils % 77 % Lymphocytes % 16 % Monocytes % 4 % Eosinophils % 1 % Basophils % 1 % Neutrophils # 8.7 H (1.3-7.7) k/uL Lymphocytes # 1.8 (1.0-4.8) k/uL Monocytes # 0.5 (0-1.0) k/uL Eosinophils # 0.1 (0-0.7) k/uL Basophils # 0.1 (0-0.2) k/uL Manual Slide Review Performed Hypochromasia Marked Poikilocytosis (manual Present Anisocytosis Marked Microcytosis Marked PT (9.0-12.0) sec INR (<1.2) APTT (22.0-30.0) sec Sodium (137-145) mmol/L Potassium (3.5-5.1) mmol/L Chloride (98-107) mmol/L Carbon Dioxide (22-30) mmol/L Anion Gap mmol/L BUN (7-17) mg/dL Creatinine (0.52-1.04) mg/dL Est GFR (CKD-EPI)AfAm (>60 ml/min/1.73 sqM) Est GFR (CKD-EPI)NonAf (>60 ml/min/1.73 sqM) Glucose (74-99) mg/dL Calcium (8.4-10.2) mg/dL Magnesium (1.6-2.3) mg/dL Total Bilirubin (0.2-1.3) mg/dL AST (14-36) U/L ALT (4-34) U/L Alkaline Phosphatase (38-126) U/L Troponin I (0.000-0.034) ng/mL NT-Pro-B Natriuret Pep 5960 pg/mL Total Protein (6.3-8.2) g/dL Albumin (3.5-5.0) g/dL Serum Alcohol mg/dL - EKG Data EKG Comments: Sinus tachycardia Ventricular rate 118, KS 184, QRS 156, QTC 495. Disposition Clinical Impression: Acute anxiety, Atypical chest pain Disposition: HOME SELF-CARE Condition: Fair Instructions (If sedation given, give patient instructions): Generalized Anxiety Disorder (ED) Additional Instructions: Please follow with primary care physician. Return to emergency department if symptoms worsen. Is patient prescribed a controlled substance at d/c from ED?: No Referrals: Rodney Wilson MD [Primary Care Provider] - 1-2 days Time of Disposition: :49
[2020-06-27] MEDS ORDERED: LORazepam 2 MG/ML INJ IV STA ×2 (15:30→17:27)
[2020-06-27 16:07] LABS: ALT 18 U/L (4-34); AST 38 U/L (14-36); African American GFR (CKD) >90 (>60 ml/min/1.73 sqM); Albumin 4.3 g/dL (3.5-5.0); Alkaline Phosphatase 130 U/L (38-126); Anion Gap 18 mmol/L; Blood Urea Nitrogen <2 mg/dL (7-17); Calcium 9.1 mg/dL (8.4-10.2); Carbon Dioxide 19 mmol/L (22-30); Chloride 96 mmol/L (98-107); Glucose 109 mg/dL (74-99); Magnesium 1.5 mg/dL (1.6-2.3); Non-African American GFR(CKD) >90 (>60 ml/min/1.73 sqM); Potassium 3.4 mmol/L (3.5-5.1); Sodium 133 mmol/L (137-145); Total Bilirubin 3.9 mg/dL (0.2-1.3); Total Protein 6.9 g/dL (6.3-8.2)
--- NOTE | 2020-06-27 16:35 | XR ---
EXAMINATION TYPE: XR chest 2V DATE OF EXAM: 06/27/2020 COMPARISON: 06/24/2020 INDICATION: Chest pain TECHNIQUE: Frontal and lateral views of the chest are obtained. FINDINGS: The heart size is enlarged. The pulmonary vasculature is prominent. Diffuse increased lung markings are present. There are increasing densities through the right perihil ar region. IMPRESSION: 1. Conical correlation recommended for developing congestive heart failure.
[2020-06-27 17:58] LABS: Anisocytosis Marked; Basophils # (A) 0.1 k/uL (0-0.2); Basophils % (A) 1 %; Eosinophils # (A) 0.1 k/uL (0-0.7); Eosinophils % (A) 1 %; HCT 34.6 % (34.0-46.0); HGB 10.1 gm/dL (11.4-16.0); Hypochromasia Marked; Lymphocytes # (A) 1.8 k/uL (1.0-4.8); Lymphocytes % (A) 16 %; MCH 22.4 pg (25.0-35.0); MCHC 29.2 g/dL (31.0-37.0); MCV 76.9 fL (80.0-100.0); Mean Platelet Volume 6.9; Microcytosis Marked; Monocytes # (A) 0.5 k/uL (0-1.0); Monocytes % (A) 4 %; Neutrophils # (A) 8.7 k/uL (1.3-7.7); Neutrophils % (A) 77 %; Platelet Count 487 k/uL (150-450); WBC 11.3 k/uL (3.8-10.6)
[2020-06-27 18:20] LABS: RDW 25.5 % (11.5-15.5)
[2020-06-27 18:57] LABS: Poikilocytosis (M) Present
[2020-06-27 19:31] LABS: INR 2.1 (<1.2); Partial Thromboplastin Time 29.2 sec (22.0-30.0); Prothrombin Time 20.2 sec (9.0-12.0)
[2020-06-27 19:40] VITALS: BP 117/93; PULSE 114; RESP 18
[2020-06-28 09:16] LABS: Alcohol 315 mg/dL
== END 2020-06-27 19:59 | disposition home or self-care (01) ==
LOC: EC 14:58
DX: F41.9 Anxiety disorder, unspecified (principal); I48.91 Unspecified atrial fibrillation; I50.9 Heart failure, unspecified; F32.9 Major depressive disorder, single episode, unspecified; Z79.899 Other long term (current) drug therapy; Z87.891 Personal history of nicotine dependence
CPT/HCPCS: 36415; 93005; 83880; 80053; 83735; 84484; 85025; 85610; 85730; 71046; 99285; 96374; 96376; G0480; J2060; 80320

== ENCOUNTER 2020-07-04 17:50 | Emergency (ER) | payer OTHER ==
[2020-07-04 17:59] VITALS: TEMP 97.1
[2020-07-04] MEDS ORDERED: LORazepam 1 MG TAB PO STA (18:26)
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
[2020-07-04] MEDS ORDERED: IBUPROFEN 600 MG TAB PO STA (20:06)
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
[2020-07-04 20:27] VITALS: BP 113/74; PULSE 82; RESP 16
== END 2020-07-04 20:28 | disposition home or self-care (01) ==
LOC: EC 17:50
DX: S20.211A Contusion of right front wall of thorax, initial encounter (principal); S70.02XA Contusion of left hip, initial encounter; I48.20 Chronic atrial fibrillation, unspecified; I50.9 Heart failure, unspecified; D64.9 Anemia, unspecified; F41.9 Anxiety disorder, unspecified; F32.9 Major depressive disorder, single episode, unspecified; F10.10 Alcohol abuse, uncomplicated; Z79.899 Other long term (current) drug therapy; Z87.891 Personal history of nicotine dependence; V49.50XA Passenger injured in collision with unspecified motor vehicles in traffic accident, initial encounter; Y92.410 Unspecified street and highway as the place of occurrence of the external cause
CPT/HCPCS: 71046; 99284

== ENCOUNTER 2020-07-05 22:56 | Inpatient (IN) | payer OTHER ==
[2020-07-05 23:30] LABS: Anisocytosis Marked; Basophils # (A) 0.1 k/uL (0-0.2); Basophils % (A) 2 %; Eosinophils # (A) 0.1 k/uL (0-0.7); Eosinophils % (A) 2 %; HCT 36.9 % (34.0-46.0); HGB 11.2 gm/dL (11.4-16.0); Hypochromasia Marked; Lymphocytes % (A) 33 %; MCHC 30.4 g/dL (31.0-37.0); Mean Platelet Volume 7.3; Microcytosis Marked; Monocytes # (A) 0.5 k/uL (0-1.0); Monocytes % (A) 9 %; Neutrophils # (A) 3.2 k/uL (1.3-7.7); Neutrophils % (A) 52 %; Platelet Count 304 k/uL (150-450); WBC 6.2 k/uL (3.8-10.6)
[2020-07-05] MEDS ORDERED: LORazepam 2 MG/ML INJ IV STA (23:40)
[2020-07-05] MEDS ORDERED: ASPIRIN 81 MG PO STA (23:40)
--- NOTE | 2020-07-05 23:42 | XR ---
EXAMINATION TYPE: XR chest 2V DATE OF EXAM: 07/05/2020 COMPARISON: 07/04/2020 HISTORY: Anxiety. Chest heaviness. TECHNIQUE: FINDINGS: Heart appears slightly enlarged. There is coarsening of the lung markings. There is no pleu ral effusion. Bony thorax is intact. There are sternal wires. IMPRESSION: Increased lung markings. Heart appears enlarged. Minimal heart failure or shunt vasculari ty could be present. Chest not significantly different than yesterday.
[2020-07-05 23:47] LABS: ALT 21 U/L (4-34); AST 51 U/L (14-36); African American GFR (CKD) >90 (>60 ml/min/1.73 sqM); Albumin 4.3 g/dL (3.5-5.0); Alkaline Phosphatase 124 U/L (38-126); Anion Gap 16 mmol/L; Blood Urea Nitrogen 5 mg/dL (7-17); Calcium 8.9 mg/dL (8.4-10.2); Carbon Dioxide 21 mmol/L (22-30); Chloride 93 mmol/L (98-107); Glucose 117 mg/dL (74-99); Non-African American GFR(CKD) >90 (>60 ml/min/1.73 sqM); Sodium 130 mmol/L (137-145); Total Bilirubin 2.6 mg/dL (0.2-1.3); Total Protein 6.9 g/dL (6.3-8.2)
[2020-07-05 23:49] LABS: MCV 82.1 fL (80.0-100.0)
[2020-07-06] LABS: Potassium 2.7 mmol/L (3.5-5.1)
[2020-07-06 00:33] LABS: INR 2.9 (<1.2)
[2020-07-06] MEDS ORDERED: MAGNESIUM SULFATE-D5W PMX 1 GM in DEXTROSE/WATER 1 100ML.BAG IVPB ONE (00:44)
[2020-07-06] MEDS ORDERED: POTASSIUM CHLORIDE ER 20 MEQ TAB.ER PO STA ×2 (01:07→09:23)
[2020-07-06] MEDS ORDERED: NALOXONE 0.4 MG/ML 1 ML VIAL IV PRN (01:55)
--- NOTE | 2020-07-06 02:07 | ED ---
Anxiety HPI - General Source: EMS Mode of arrival: EMS <Breann Estrada - Last Filed: 07/06/20 02:25> <Azalea Boswell - Last Filed: 07/06/20 02:36> - General Chief Complaint: Anxiety Stated Complaint: Anxiety Time Seen by Provider: 07/05/20 23:19 - History of Present Illness Initial Comments: 34yo female with extensive PMH including atrial fibrillation on warfarin presenting today for chief complaint of anxiety. Patient states that she has been out of her ativan x 2 days. She states she was at her dads house when she felt like she was going to , felt anxious and her chest was tight, "but not heart attack tight", she states she thought she was going to . She states she was was slightly SOB that but resolved. Denies palpitations or lightheadedness. Patient states she did have 2 glasses of wine. Patient denies nausea, jaw or arm pain, denies back pain. Denies fevers, Patient denies additional complaints. Pt appears nontoxic on arrival. (Breann Estrada) - Related Data Home Medications: Home Medications Medication Instructions Recorded Confirmed Digoxin [Digitek] 125 mcg PO DAILY 12/19/17 06/27/20 Spironolactone [Aldactone] 25 mg PO DAILY 12/19/17 06/27/20 Loratadine [Claritin] 10 mg PO DAILY 11/04/19 06/27/20 Metoprolol Tartrate [Lopressor] 200 mg PO DAILY 03/02/20 06/27/20 Escitalopram [Lexapro] 10 mg PO DAILY 03/11/20 06/27/20 Furosemide [Lasix] 80 mg PO DAILY 03/20/20 06/27/20 LORazepam [Ativan] 0.5 mg PO HS PRN 06/10/20 06/27/20 Magnesium Oxide [Mag-Ox] 400 mg PO BID 06/10/20 06/27/20 Ferrous Sulfate [Iron] 325 mg PO AC-TID 06/27/20 06/27/20 Previous Rx's Medication Instructions Recorded Pantoprazole [Protonix] 40 mg PO AC-BID #60 tablet. 11/10/19 Thiamine [Vitamin B-1] 100 mg PO BID-W/MEALS #100 tab 02/13/20 Potassium Chloride [Klor-Con 20] 40 meq PO BID 3 Days #12 tab 05/07/20 Warfarin [Coumadin] 2 mg PO DAILY@1800 #30 tab 06/13/20 Allergies/Adverse Reactions: Allergies Allergy/AdvReac Type Severity Reaction Status Date / Time No Known Allergies Allergy Verified 07/05/20 23:06 Review of Systems ROS Other: All systems not noted in ROS Statement are negative. <Breann Estrada Rochelle - Last Filed: 07/06/20 02:25> ROS Other: All systems not noted in ROS Statement are negative. <Azalea Boswell P - Last Filed: 07/06/20 02:36> ROS Statement: Those systems with pertinent positive or pertinent negative responses have been documented in the HPI. 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 History of Any Multi-Drug Resistant Organisms: ESBL Date of last positivie culture/infection: 02/25/17 ESBL-Klebsiella MDRO Source:: Urine Past Surgical History: No Surgical Hx Reported Additional Past Surgical History / Comment(s): open heart surg for transposition of great arteries, CARDIOVERTED FOR A- FIB twice Past Anesthesia/Blood Transfusion Reactions: No Reported Reaction Past Psychological History: Anxiety, Depression Smoking Status: Former smoker Past Alcohol Use History: Abuse, Daily Past Drug Use History: None Reported - Past Family History Mother Family Medical History: No Reported History Additional Family Medical History / Comment(s): Mother is healthy Father Family Medical History: No Reported History Additional Family Medical History / Comment(s): Father is healthy <Breann Estrada - Last Filed: 07/06/20 02:25> General Exam Limitations: no limitations <SeanBreann L - Last Filed: 07/06/20 02:25> - General Exam Comments Initial Comments: General: The patient is awake and alert, in no distress Eye: +3 mm pupils are equal, round and reactive to light, extra-ocular movements are intact. No nystagmus. There is normal conjunctiva bilaterally. No signs of icterus. Ears, nose, mouth and throat: There are moist mucous membranes and no oral lesions. Neck: The neck is supple, there is no tenderness or JVD. Cardiovascular: There is a regular rate and rhythm. No murmur, rub or gallop is appreciated. Respiratory: Lungs are clear to auscultation, respirations are non-labored, breath sounds are equal. No wheezes, stridor, rales, or rhonchi. Gastrointestinal: Soft, non-distended, non-tender abdomen without masses or organomegaly noted. There is no rebound or guarding present. Musculoskeletal: Normal ROM, no tenderness. Strength 5/5. Sensation intact. Radial and DP pulses equal bilaterally 2+. Neurological: A&O x 3. CN II-XII intact grossly, There are no obvious motor or sensory deficits. Coordination appears grossly intact. Speech is normal. Skin: Skin is warm and dry and no rashes or lesions are noted. No LE edema. No calf pain. Psychiatric: Cooperative, appropriate mood & affect, normal judgment. (Breann Estrada) Course Vital Signs 07/05/20 07/06/20 23:02 00:05 Temperature 97.6 F Pulse Rate 75 Respiratory 18 16 Rate Blood Pressure 104/72 O2 Sat by Pulse 95 Oximetry Medical Decision Making - Lab Data Result diagrams: 07/05/20 23:25 07/05/20 23:25 <Breann Estrada - Last Filed: 07/06/20 02:25> - Lab Data Result diagrams: 07/05/20 23:25 07/05/20 23:25 <Azalea Boswell - Last Filed: 07/06/20 02:36> - Medical Decision Making 34yo presenting for anxiety. endorsed chest discomfort. Potassium 2.7 . EKG at baseline. Mag 1.4. CXR findings consistent mild heart failure. BNP trendng downward. potassium and magnesium replaced. Patient will be admitted for monitoring. (Breann Estrada) I personally saw and evaluated the patient. Patient care was discussed with patient's primary care physician and who agrees with plan for observation for chest pain, electrolyte replacement. He requested an alcohol level be obtained prior to admission. (Azalea Boswell) - Lab Data Lab Results 07/05/20 07/05/20 07/05/20 Range/Units 23:25 23:25 23:25 WBC 6.2 (3.8-10.6) k/uL RBC 4.50 (3.80-5.40) m/uL Hgb 11.2 L (11.4-16.0) gm/dL Hct 36.9 (34.0-46.0) % MCV 82.1 D (80.0-100.0) fL MCH 25.0 (25.0-35.0) pg MCHC 30.4 L (31.0-37.0) g/dL RDW 28.0 H (11.5-15.5) % Plt Count 304 (150-450) k/uL Neutrophils % 52 % Lymphocytes % 33 % Monocytes % 9 % Eosinophils % 2 % Basophils % 2 % Neutrophils # 3.2 (1.3-7.7) k/uL Lymphocytes # 2.0 (1.0-4.8) k/uL Monocytes # 0.5 (0-1.0) k/uL Eosinophils # 0.1 (0-0.7) k/uL Basophils # 0.1 (0-0.2) k/uL Hypochromasia Marked Anisocytosis Marked Microcytosis Marked PT (9.0-12.0) sec INR (<1.2) APTT (22.0-30.0) sec Sodium 130 L (137-145) mmol/L Potassium 2.7 L* (3.5-5.1) mmol/L Chloride 93 L (98-107) mmol/L Carbon Dioxide 21 L (22-30) mmol/L Anion Gap 16 mmol/L BUN 5 L (7-17) mg/dL Creatinine 0.60 (0.52-1.04) mg/dL Est GFR (CKD-EPI)AfAm >90 (>60 ml/min/1.73 sqM) Est GFR (CKD-EPI)NonAf >90 (>60 ml/min/1.73 sqM) Glucose 117 H (74-99) mg/dL Calcium 8.9 (8.4-10.2) mg/dL Magnesium (1.6-2.3) mg/dL Total Bilirubin 2.6 H (0.2-1.3) mg/dL AST 51 H (14-36) U/L ALT 21 (4-34) U/L Alkaline Phosphatase 124 (38-126) U/L Troponin I 0.031 (0.000-0.034) ng/mL NT-Pro-B Natriuret Pep pg/mL Total Protein 6.9 (6.3-8.2) g/dL Albumin 4.3 (3.5-5.0) g/dL 07/06/20 07/06/20 07/06/20 Range/Units 00:12 00:12 00:12 WBC (3.8-10.6) k/uL RBC (3.80-5.40) m/uL Hgb (11.4-16.0) gm/dL Hct (34.0-46.0) % MCV (80.0-100.0) fL MCH (25.0-35.0) pg MCHC (31.0-37.0) g/dL RDW (11.5-15.5) % Plt Count (150-450) k/uL Neutrophils % % Lymphocytes % % Monocytes % % Eosinophils % % Basophils % % Neutrophils # (1.3-7.7) k/uL Lymphocytes # (1.0-4.8) k/uL Monocytes # (0-1.0) k/uL Eosinophils # (0-0.7) k/uL Basophils # (0-0.2) k/uL Hypochromasia Anisocytosis Microcytosis PT 28.0 H (9.0-12.0) sec INR 2.9 H (<1.2) APTT 33.0 H (22.0-30.0) sec Sodium (137-145) mmol/L Potassium (3.5-5.1) mmol/L Chloride (98-107) mmol/L Carbon Dioxide (22-30) mmol/L Anion Gap mmol/L BUN (7-17) mg/dL Creatinine (0.52-1.04) mg/dL Est GFR (CKD-EPI)AfAm (>60 ml/min/1.73 sqM) Est GFR (CKD-EPI)NonAf (>60 ml/min/1.73 sqM) Glucose (74-99) mg/dL Calcium (8.4-10.2) mg/dL Magnesium 1.4 L (1.6-2.3) mg/dL Total Bilirubin (0.2-1.3) mg/dL AST (14-36) U/L ALT (4-34) U/L Alkaline Phosphatase (38-126) U/L Troponin I (0.000-0.034) ng/mL NT-Pro-B Natriuret Pep 4730 pg/mL Total Protein (6.3-8.2) g/dL Albumin (3.5-5.0) g/dL Disposition Is patient prescribed a controlled substance at d/c from ED?: No Time of Disposition: 02:25 Decision to Admit Reason: Admit from EC Decision Date: 07/06/20 Decision Time: 02:25 <Breann Estrada - Last Filed: 07/06/20 02:25> <Azalea Boswell P - Last Filed: 07/06/20 02:36> Clinical Impression: Anxiety, Chest discomfort, Hypokalemia Disposition: ADMITTED IP TO THIS HOSP Condition: Stable Instructions (If sedation given, give patient instructions): Generalized Anxiety Disorder (ED) Referrals: Rodney Wilson MD [Primary Care Provider] - 1-2 days
[2020-07-06] MEDS ORDERED: LORazepam 2 MG/ML INJ IV STA (04:45)
[2020-07-06 08:19] LABS: African American GFR (CKD) >90 (>60 ml/min/1.73 sqM); Anion Gap 13 mmol/L; Blood Urea Nitrogen 5 mg/dL (7-17); Calcium 8.5 mg/dL (8.4-10.2); Carbon Dioxide 25 mmol/L (22-30); Chloride 96 mmol/L (98-107); Glucose 88 mg/dL (74-99); Magnesium 1.5 mg/dL (1.6-2.3); Non-African American GFR(CKD) >90 (>60 ml/min/1.73 sqM); Sodium 134 mmol/L (137-145)
[2020-07-06] MEDS ORDERED: Magnesium Replacement Protocol 1 EACH MISC MISCELLANE PRN (09:23)
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
[2020-07-06] MEDS: MAGNESIUM SULFATE-D5W PMX 1 GM in DEXTROSE/WATER 1 100ML.BAG IVPB SCH ×2 (10:06→11:23)
[2020-07-06] MEDS ORDERED: LORazepam 0.5 MG TAB PO PRN (10:50)
[2020-07-06] MEDS: ESCITALOPRAM 10 MG TAB PO SCH (11:24)
[2020-07-06] MEDS: SPIRONOLACTONE 25 MG TAB PO SCH (11:24)
[2020-07-06] MEDS: METOPROLOL TARTRATE 50 MG TAB PO SCH (11:24)
[2020-07-06] MEDS: MAGNESIUM OXIDE 400 MG TAB PO SCH ×2 (11:24→21:03)
[2020-07-06] MEDS: DIGOXIN 125 MCG TAB PO SCH (11:24)
[2020-07-06] MEDS: FERROUS SULFATE 325 MG TAB PO SCH ×2 (12:36→17:45)
[2020-07-06] MEDS: LORazepam 1 MG TAB PO PRN ×2 (13:37→21:03)
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
[2020-07-06] MEDS: HYDROcodone/APAP 5-325MG 1 EACH TAB PO PRN ×2 (17:45→23:05)
[2020-07-06] MEDS: THIAMINE 100 MG TAB PO SCH (17:45)
[2020-07-06] MEDS: PANTOPRAZOLE 40 MG TABLET PO SCH (17:45)
[2020-07-06] MEDS: POTASSIUM CHLORIDE ER 20 MEQ TAB.ER PO SCH (21:03)
[2020-07-06] MEDS: diphenhydrAMINE 25 MG CAP PO PRN (21:03)
[2020-07-07] MEDS: LORazepam 1 MG TAB PO PRN ×3 (05:25→22:31)
[2020-07-07] MEDS: FERROUS SULFATE 325 MG TAB PO SCH ×3 (06:18→16:55)
[2020-07-07] MEDS: THIAMINE 100 MG TAB PO SCH ×2 (06:19→16:55)
[2020-07-07] MEDS: PANTOPRAZOLE 40 MG TABLET PO SCH ×2 (06:19→16:55)
[2020-07-07 07:33] LABS: INR 2.2 (<1.2)
[2020-07-07 07:40] LABS: ALT 18 U/L (4-34); AST 37 U/L (14-36); African American GFR (CKD) >90 (>60 ml/min/1.73 sqM); Albumin 3.8 g/dL (3.5-5.0); Alkaline Phosphatase 126 U/L (38-126); Anion Gap 6 mmol/L; Blood Urea Nitrogen 8 mg/dL (7-17); Calcium 9.3 mg/dL (8.4-10.2); Carbon Dioxide 30 mmol/L (22-30); Chloride 98 mmol/L (98-107); Glucose 88 mg/dL (74-99); Magnesium 2.1 mg/dL (1.6-2.3); Non-African American GFR(CKD) >90 (>60 ml/min/1.73 sqM); Potassium 3.8 mmol/L (3.5-5.1); Sodium 134 mmol/L (137-145); Total Bilirubin 3.7 mg/dL (0.2-1.3); Total Protein 6.5 g/dL (6.3-8.2)
[2020-07-07] MEDS: MAGNESIUM OXIDE 400 MG TAB PO SCH ×2 (08:05→21:15)
[2020-07-07] MEDS: ESCITALOPRAM 10 MG TAB PO SCH (08:05)
[2020-07-07] MEDS: POTASSIUM CHLORIDE ER 20 MEQ TAB.ER PO SCH ×2 (08:05→21:15)
[2020-07-07] MEDS: HYDROcodone/APAP 5-325MG 1 EACH TAB PO PRN ×3 (08:05→22:31)
[2020-07-07] MEDS: DIGOXIN 125 MCG TAB PO SCH (08:05)
[2020-07-07] MEDS: METOPROLOL TARTRATE 50 MG TAB PO SCH (08:05)
[2020-07-07] MEDS: ASPIRIN 325 MG TAB PO SCH (08:06)
[2020-07-07] MEDS: SPIRONOLACTONE 25 MG TAB PO SCH (08:06)
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
[2020-07-07 14:11] LABS: Anisocytosis Marked; Basophils # (A) 0.1 k/uL (0-0.2); Basophils % (A) 1 %; Eosinophils # (A) 0.1 k/uL (0-0.7); Eosinophils % (A) 2 %; HCT 36.5 % (34.0-46.0); HGB 10.4 gm/dL (11.4-16.0); Hypochromasia Marked; Lymphocytes % (A) 21 %; MCH 24.2 pg (25.0-35.0); MCHC 28.6 g/dL (31.0-37.0); MCV 84.4 fL (80.0-100.0); Mean Platelet Volume 7.9; Microcytosis Moderate; Monocytes # (A) 0.6 k/uL (0-1.0); Monocytes % (A) 11 %; Neutrophils % (A) 62 %; Platelet Count 199 k/uL (150-450); RBC 4.32 m/uL (3.80-5.40); WBC 4.8 k/uL (3.8-10.6)
[2020-07-07 14:12] LABS: RDW 26.7 % (11.5-15.5)
[2020-07-07 14:15] LABS: ALT 17 U/L (4-34); AST 43 U/L (14-36); African American GFR (CKD) >90 (>60 ml/min/1.73 sqM); Albumin 3.8 g/dL (3.5-5.0); Alkaline Phosphatase 123 U/L (38-126); Anion Gap 7 mmol/L; Blood Urea Nitrogen 8 mg/dL (7-17); Calcium 9.5 mg/dL (8.4-10.2); Carbon Dioxide 28 mmol/L (22-30); Chloride 99 mmol/L (98-107); Glucose 95 mg/dL (74-99); Non-African American GFR(CKD) >90 (>60 ml/min/1.73 sqM); Potassium 4.7 mmol/L (3.5-5.1); Sodium 134 mmol/L (137-145); Total Bilirubin 3.9 mg/dL (0.2-1.3); Total Protein 6.4 g/dL (6.3-8.2)
[2020-07-07] MEDS: diphenhydrAMINE 25 MG CAP PO PRN ×2 (15:46→22:31)
[2020-07-08] MEDS: HYDROcodone/APAP 5-325MG 1 EACH TAB PO PRN ×3 (04:14→15:51)
[2020-07-08] MEDS: PANTOPRAZOLE 40 MG TABLET PO SCH ×2 (06:29→15:51)
[2020-07-08] MEDS: THIAMINE 100 MG TAB PO SCH ×2 (06:29→15:51)
[2020-07-08] MEDS: FERROUS SULFATE 325 MG TAB PO SCH ×3 (06:29→15:51)
[2020-07-08] MEDS: LORazepam 1 MG TAB PO PRN ×3 (06:33→17:10)
[2020-07-08] MEDS: MAGNESIUM OXIDE 400 MG TAB PO SCH ×2 (09:07→20:02)
[2020-07-08] MEDS: DIGOXIN 125 MCG TAB PO SCH (09:07)
[2020-07-08] MEDS: ESCITALOPRAM 10 MG TAB PO SCH (09:07)
[2020-07-08] MEDS: POTASSIUM CHLORIDE ER 20 MEQ TAB.ER PO SCH (09:07)
[2020-07-08] MEDS: SPIRONOLACTONE 25 MG TAB PO SCH (09:07)
[2020-07-08] MEDS: ASPIRIN 325 MG TAB PO SCH (09:07)
[2020-07-08] MEDS: METOPROLOL TARTRATE 50 MG TAB PO SCH (09:08)
[2020-07-08] MEDS: IPRATROPIUM-ALBUTEROL 3 ML NEB INHALATION SCH ×3 (11:07→19:38)
[2020-07-08 11:29] LABS: Anisocytosis Marked; Basophils # (A) 0.1 k/uL (0-0.2); Basophils % (A) 2 %; Eosinophils # (A) 0.1 k/uL (0-0.7); Eosinophils % (A) 2 %; HCT 34.5 % (34.0-46.0); HGB 10.2 gm/dL (11.4-16.0); Hypochromasia Marked; Lymphocytes # (A) 1.4 k/uL (1.0-4.8); Lymphocytes % (A) 26 %; MCH 25.1 pg (25.0-35.0); MCHC 29.5 g/dL (31.0-37.0); MCV 85.2 fL (80.0-100.0); Mean Platelet Volume 7.5; Microcytosis Moderate; Monocytes # (A) 0.5 k/uL (0-1.0); Monocytes % (A) 9 %; Neutrophils # (A) 3.1 k/uL (1.3-7.7); Neutrophils % (A) 59 %; Platelet Count 189 k/uL (150-450); RBC 4.05 m/uL (3.80-5.40); WBC 5.3 k/uL (3.8-10.6)
[2020-07-08 11:35] LABS: RDW 26.7 % (11.5-15.5)
[2020-07-08 11:39] LABS: ALT 16 U/L (4-34); AST 33 U/L (14-36); African American GFR (CKD) >90 (>60 ml/min/1.73 sqM); Albumin 3.7 g/dL (3.5-5.0); Alkaline Phosphatase 120 U/L (38-126); Anion Gap 8 mmol/L; Blood Urea Nitrogen 9 mg/dL (7-17); Calcium 9.5 mg/dL (8.4-10.2); Carbon Dioxide 24 mmol/L (22-30); Chloride 99 mmol/L (98-107); Glucose 86 mg/dL (74-99); Non-African American GFR(CKD) >90 (>60 ml/min/1.73 sqM); Sodium 131 mmol/L (137-145); Total Bilirubin 4.2 mg/dL (0.2-1.3); Total Protein 6.2 g/dL (6.3-8.2)
[2020-07-08] MEDS ORDERED: IPRATROPIUM-ALBUTEROL 3 ML NEB INHALATION SCH (12:00)
--- NOTE | 2020-07-08 15:03 | XR ---
EXAMINATION TYPE: XR chest 2V DATE OF EXAM: 07/08/2020 CLINICAL HISTORY: Shortness of breath TECHNIQUE: Frontal and lateral views of the chest are obtained. COMPARISON: 07/05/2020 and 07/04/2020 chest radiograph. CTA chest 06/16/2020. FINDINGS: Sternotomy wires. Marked cardiomegaly. Enlarged pulmonary arteries. Mild pulmonary edema. There is no focal air space opacity, pleural effusion, or pneumothorax seen. The osseous structures a re intact. IMPRESSION: Marked cardiomegaly and mild pulmonary edema appears similar to 07/05/2020 and 07/04/2020 c omparisons.
--- NOTE | 2020-07-08 17:19 | PN ---
PROGRESS NOTE CHIEF COMPLAINT: Chest pain and hypokalemia. HISTORY OF PRESENT ILLNESS: This lady was doing well last night and was expected that she will go home today, but she is complaining of shortness of breath and her potassium is elevated. She denies chest pain, cough, sputum production, hemoptysis, chest pain, orthopnea, PND, etc. PHYSICAL EXAM: Head ears, eyes, nose, and mouth are normal. Chest is actually fairly clear. There are no rales or rhonchi. Cardiac exam is unchanged and the abdomen is soft. IMPRESSION: 1. Shortness of breath, etiology unknown. 2. Recent episode of chest pain. 3. Congenital heart disease. 4. Alcoholism. PLAN: 1. Repeat EKG. 2. Pulse ox. 3. Chest x-ray. 4. BNP. 5. D-dimer. MMESTELAL / CARMENN: [id number] /
[2020-07-08] MEDS ORDERED: SODIUM BICARB 8.4% 50 ML SYR (1 MEQ/ML) IV STA (19:01)
[2020-07-08] MEDS ORDERED: DEXTROSE 50% SYRINGE 50 ML IVP STA (19:03)
[2020-07-08] MEDS ORDERED: INSULIN REGULAR 100 UNIT/ML VIAL IV ONE (19:03)
[2020-07-08] MEDS ORDERED: FUROSEMIDE 10 MG/ML 4 ML VIAL IV STA (19:04)
[2020-07-08] MEDS: SODIUM CHLORIDE 0.9% 1,000 ML IV SCH (19:41)
[2020-07-09] MEDS: IPRATROPIUM-ALBUTEROL 3 ML NEB INHALATION SCH ×6 (00:01→19:13)
[2020-07-09 01:24] LABS: African American GFR (CKD) >90 (>60 ml/min/1.73 sqM); Anion Gap 9 mmol/L; Blood Urea Nitrogen 10 mg/dL (7-17); Calcium 9.5 mg/dL (8.4-10.2); Carbon Dioxide 24 mmol/L (22-30); Chloride 99 mmol/L (98-107); Glucose 82 mg/dL (74-99); Magnesium 1.9 mg/dL (1.6-2.3); Non-African American GFR(CKD) >90 (>60 ml/min/1.73 sqM); Potassium 4.6 mmol/L (3.5-5.1); Sodium 132 mmol/L (137-145)
[2020-07-09] MEDS: SODIUM CHLORIDE 0.9% 1,000 ML IV SCH ×3 (04:46→23:17)
[2020-07-09] MEDS: PANTOPRAZOLE 40 MG TABLET PO SCH ×2 (06:26→17:23)
[2020-07-09] MEDS: FERROUS SULFATE 325 MG TAB PO SCH ×3 (06:26→17:23)
[2020-07-09] MEDS: THIAMINE 100 MG TAB PO SCH ×2 (06:26→17:23)
[2020-07-09 08:03] LABS: African American GFR (CKD) >90 (>60 ml/min/1.73 sqM); Anion Gap 8 mmol/L; Blood Urea Nitrogen 9 mg/dL (7-17); Calcium 9.3 mg/dL (8.4-10.2); Carbon Dioxide 26 mmol/L (22-30); Chloride 100 mmol/L (98-107); Glucose 80 mg/dL (74-99); Magnesium 1.8 mg/dL (1.6-2.3); Non-African American GFR(CKD) >90 (>60 ml/min/1.73 sqM); Potassium 4.3 mmol/L (3.5-5.1); Sodium 134 mmol/L (137-145)
[2020-07-09 08:21] LABS: Anisocytosis Marked; HCT 36.3 % (34.0-46.0); HGB 10.1 gm/dL (11.4-16.0); Hypochromasia Marked; MCH 24.5 pg (25.0-35.0); MCHC 27.8 g/dL (31.0-37.0); MCV 88.1 fL (80.0-100.0); Macrocytosis Slight; Mean Platelet Volume 8.8; Microcytosis Moderate; Platelet Count 194 k/uL (150-450); RBC 4.12 m/uL (3.80-5.40); WBC 5.3 k/uL (3.8-10.6)
[2020-07-09 08:25] LABS: RDW 26.7 % (11.5-15.5)
[2020-07-09] MEDS: DIGOXIN 125 MCG TAB PO SCH (08:35)
[2020-07-09] MEDS: ASPIRIN 325 MG TAB PO SCH (08:35)
[2020-07-09] MEDS: SPIRONOLACTONE 25 MG TAB PO SCH (08:35)
[2020-07-09] MEDS: ESCITALOPRAM 10 MG TAB PO SCH (08:35)
[2020-07-09] MEDS: MAGNESIUM OXIDE 400 MG TAB PO SCH ×2 (08:35→20:17)
[2020-07-09] MEDS ORDERED: METOPROLOL SUCCINATE (ER) 50 MG TAB.ER.24H PO SCH (09:00)
--- NOTE | 2020-07-09 10:37 | CDI ---
Documentation Clarification Form Date: 07/09/2020 10:06:42 AM From: Margot Garay RN, CCDS Admit Date: 07/08/2020 12:50:00 PM Patient Name: Anita Wilcox Visit Number: [id number] Discharge Date: ATTENTION: The Clinical Documentation Specialists (CDI) and [facility] Coding Staff appreciate your assistance in clarifying documentation. Please respond to the clarification below the line at the bottom and electronically sign. The CDI & [facility] Coding staff will review the response and follow-up if needed. Please note: Queries are made part of the Legal Health Record. If you have any questions, please contact the author of this message via ITS. Dr. Rodney Wilson Heart failure is documented in the past medical. Please provide your clinical opinion on the acuity and specificity for the heart failure. History/Risk Factors: Atrial Fibrillation, Heart failure, Congenital Heart Disease, Chronic Alcoholism Clinical Indicators: 34-year-old female present with c/o anxiety, chest tightness, slightly sob that resolved. Denies palpitations or lightheadedness. 07/05 VS/Pulse OX: 104/72 75 18 97.6 07/06 BNP: 4730 Echocardiogram Results: (most recent) 02/05/2020: Moderate LVH, Systolic mildly impaired, EF 45-50% Right ventricle severely enlarged, Moderate AR, and Mild mitral regurgitation. Severe pulmonary hypertension. 07/05 Chest X Ray: Increased lung markings. Heart appears enlarged. Minimal heart failure or shunt vascularity could be present Treatment: Lasix 40 mg IV x1 Aldactone 25 m pop Daily Toprol XL 50 mg pop daily Aspirin 325 mg pop daily In your professional opinion, can you please clarify the acuity and type of CHF if known? Chronic Diastolic Chronic Heart Failure Acute on Chronic Diastolic Heart Failure Unable to Determine Other, please specify (Last Revision: December 2017) MTDD
[2020-07-09 10:51] LABS: Band Neutrophils % 1 %; Eosinophils # (M) 0.11 k/uL (0-0.7); Lymphocytes # (M) 1.48 k/uL (1.0-4.8); Monocytes # (M) 0.32 k/uL (0-1.0); Neutrophils % (M) 63 %; Nucleated Red Blood Cells 0 /100 WBC (0-0); Total Cells Counted 100
[2020-07-09] MEDS: LORazepam 0.5 MG TAB PO PRN ×2 (13:01→23:16)
[2020-07-09 13:19] LABS: INR 1.5 (<1.2); Prothrombin Time 14.9 sec (9.0-12.0)
[2020-07-09] MEDS ORDERED: WARFARIN 2 MG TAB PO ONE (18:00)
[2020-07-09] MEDS ORDERED: WARFARIN 2 MG TAB PO SCH (18:00)
[2020-07-09] MEDS: diphenhydrAMINE 25 MG CAP PO PRN (20:17)
[2020-07-10] MEDS: IPRATROPIUM-ALBUTEROL 3 ML NEB INHALATION SCH ×7 (00:09→23:00)
[2020-07-10] MEDS: LORazepam 0.5 MG TAB PO PRN ×3 (05:52→20:37)
[2020-07-10] MEDS: FERROUS SULFATE 325 MG TAB PO SCH ×3 (05:52→16:48)
[2020-07-10] MEDS: THIAMINE 100 MG TAB PO SCH ×2 (05:53→16:48)
[2020-07-10] MEDS: PANTOPRAZOLE 40 MG TABLET PO SCH ×2 (05:53→16:48)
[2020-07-10] MEDS: SODIUM CHLORIDE 0.9% 1,000 ML IV SCH ×2 (07:53→22:10)
[2020-07-10] MEDS: ASPIRIN 325 MG TAB PO SCH (09:05)
[2020-07-10] MEDS: DIGOXIN 125 MCG TAB PO SCH (09:17)
[2020-07-10] MEDS: MAGNESIUM OXIDE 400 MG TAB PO SCH ×2 (09:18→20:37)
[2020-07-10] MEDS: ESCITALOPRAM 10 MG TAB PO SCH (09:18)
[2020-07-10] MEDS: SPIRONOLACTONE 25 MG TAB PO SCH (09:19)
[2020-07-10 11:59] LABS: INR 1.4 (<1.2); Prothrombin Time 13.5 sec (9.0-12.0)
[2020-07-10] MEDS ORDERED: ACETAMINOPHEN TAB 325 MG TAB PO PRN (17:46)
[2020-07-10] MEDS ORDERED: WARFARIN 2 MG TAB PO ONE (18:00)
--- NOTE | 2020-07-10 18:59 | PN ---
PROGRESS NOTE DATE OF SERVICE: 07/09/2020 CHIEF COMPLAINT: Cirrhosis, electrolyte imbalance and hyperkalemia. HISTORY OF PRESENT ILLNESS: This lady has developed significant hyperkalemia. Her oral potassium has been stopped, which was instituted to treat low potassium. Other measures will be instituted to bring her down as quickly as possible. Other than feeling lethargic and complaining of some mild shortness of breath, she is doing well. PHYSICAL EXAMINATION: Her chest is fairly clear and the cardiac exam is unchanged with her murmur. Abdomen is soft, nontender. Extremities are normal. IMPRESSION: 1. Cirrhosis. 2. Alcoholism. 3. Anemia. 4. Gastrointestinal bleeding. 5. Hyperkalemia. PLAN: IV Lasix, glucose, insulin, and I started her IV with normal saline and then repeat potassium tomorrow. MMODL / IJN: [id number] /
--- NOTE | 2020-07-10 19:50 | PN ---
PROGRESS NOTE DATE OF SERVICE: 07/10/2020 CHIEF COMPLAINT: Sudden onset of shortness of breath. HISTORY OF PRESENT ILLNESS: This morning this lady developed shortness of breath with some wheezing. She has had no cough, fever, updrafts, sputum production, chest pain, etc. PHYSICAL EXAMINATION: She does have bilateral wheezing on inspiration and expiration with scattered rales and rhonchi. Cardiac exam is the same. The abdomen is soft and nontender. IMPRESSION: Shortness of breath and bronchospasm, etiology unknown. PLAN: 1. Further workup and updrafts. 2. Cancel discharge. 3. Repeat potassium. MMODL / IJN: [id number] /
[2020-07-10] MEDS: diphenhydrAMINE 25 MG CAP PO PRN (20:37)
[2020-07-11] MEDS: IPRATROPIUM-ALBUTEROL 3 ML NEB INHALATION SCH ×4 (02:33→15:36)
[2020-07-11] MEDS: SODIUM CHLORIDE 0.9% 1,000 ML IV SCH (05:31)
[2020-07-11] MEDS: PANTOPRAZOLE 40 MG TABLET PO SCH (05:46)
[2020-07-11] MEDS: FERROUS SULFATE 325 MG TAB PO SCH ×2 (05:46→13:24)
[2020-07-11] MEDS: THIAMINE 100 MG TAB PO SCH (05:46)
[2020-07-11] MEDS: LORazepam 0.5 MG TAB PO PRN ×2 (06:54→15:24)
[2020-07-11 08:54] LABS: INR 1.4 (<1.2)
[2020-07-11 09:05] LABS: African American GFR (CKD) >90 (>60 ml/min/1.73 sqM); Anion Gap 7 mmol/L; Anisocytosis Marked; Basophils # (A) 0.1 k/uL (0-0.2); Basophils % (A) 1 %; Blood Urea Nitrogen 6 mg/dL (7-17); Carbon Dioxide 21 mmol/L (22-30); Chloride 106 mmol/L (98-107); Eosinophils # (A) 0.1 k/uL (0-0.7); Eosinophils % (A) 2 %; Glucose 80 mg/dL (74-99); HCT 32.9 % (34.0-46.0); HGB 9.4 gm/dL (11.4-16.0); Hypochromasia Marked; Lymphocytes # (A) 1.3 k/uL (1.0-4.8); Lymphocytes % (A) 24 %; MCH 25.5 pg (25.0-35.0); MCHC 28.5 g/dL (31.0-37.0); MCV 89.4 fL (80.0-100.0); Macrocytosis Slight; Mean Platelet Volume 7.7; Microcytosis Moderate; Monocytes # (A) 0.5 k/uL (0-1.0); Monocytes % (A) 8 %; Neutrophils # (A) 3.5 k/uL (1.3-7.7); Neutrophils % (A) 63 %; Non-African American GFR(CKD) >90 (>60 ml/min/1.73 sqM); Platelet Count 184 k/uL (150-450); RBC 3.68 m/uL (3.80-5.40); Sodium 134 mmol/L (137-145); WBC 5.5 k/uL (3.8-10.6)
[2020-07-11 09:06] LABS: RDW 27.9 % (11.5-15.5)
[2020-07-11] MEDS: DIGOXIN 125 MCG TAB PO SCH (09:21)
[2020-07-11] MEDS: SPIRONOLACTONE 25 MG TAB PO SCH (09:21)
[2020-07-11] MEDS: MAGNESIUM OXIDE 400 MG TAB PO SCH (09:21)
[2020-07-11] MEDS: ESCITALOPRAM 10 MG TAB PO SCH (09:21)
[2020-07-11] MEDS: ASPIRIN 325 MG TAB PO SCH (09:21)
[2020-07-11 10:15] VITALS: TEMP 98
[2020-07-11 14:22] VITALS: BP 101/65; PULSE 71; RESP 12
[2020-07-11] MEDS ORDERED: WARFARIN 2 MG TAB PO ONE (18:00)
--- NOTE | 2020-07-12 03:13 | DS ---
DISCHARGE SUMMARY CHIEF COMPLAINT: Anxiety, alcoholism, alcohol intoxication and hypokalemia. HISTORY OF PRESENT ILLNESS AND PHYSICAL EXAM: Details of this lady's history and physical can be found in the initial workup. LABORATORY STUDIES: While she was in the hospital she had laboratory studies, details of which can be found in the laboratory section of her chart. COURSE IN THE HOSPITAL: After admission she was started on bedrest and IV fluids to replace her potassium. She did not go into DTs. Her potassium came back in the normal range and actually she developed hyperkalemia. This was treated and potassium came back down to normal. She was placed back on her Coumadin and she seemed to be doing well and it was felt she was stable enough to go home on the and she will go home on her usual activity, diet and medication. She will go back on Lasix, but a lower dose. She will be on Coumadin 4 mg once a day. She was encouraged to stop drinking and she will be followed up in 2 to 3 days in the office. FINAL DIAGNOSES: 1. Hypokalemia. 2. Dehydration. 3. Acute alcohol intoxication. 4. Chronic alcoholism. 5. Congenital heart disease. 6. Chronic anemia. 7. Renal failure. OPERATIONS: None. CONSULTATIONS: None. She is improved. MMODL / IJN: [id number] /
[2020-07-12] MEDS ORDERED: FUROSEMIDE 20 MG TAB PO SCH (09:00)
--- NOTE | 2020-07-12 14:43 | CDI ---
Documentation Clarification Form Date: 07/12/20 From: Jazmyn Horton CCS Phone: If you have a question about this query, please contact Kandy Dominguez, [employer] Terrain Vehicle Racer at [phone] between 8am and 5pm. Admit Date: 07/08/20 Discharge Date:07/11/20 Patient Name: Anita Wilcox Visit Number: [id number] ATTENTION: The Clinical Documentation Specialists (CDI) and [facility] Coding Staff appreciate your assistance in clarifying documentation. Please respond to the clarification below the line at the bottom and electronically sign. The CDI & [facility] Coding staff will review the response and follow-up if needed. Please note: Queries are made part of the Legal Health Record. If you have any questions, please contact the author of this message via ITS. Dear Dr. Wilson, Renal failure was documented in the H&P, DS. History/Risk Factors: CHF, HTN, AFIB, Alcohol dependence, Anemia, Cirrhosis Current BUN: 5, 8, 10 CR: .60, .55, .62 GFR: >90 Clinical Indicators: Renal failure Treatment: Monitor In order to capture the severity of condition, please clarify if the condition signifies: Acute renal failure Acute kidney injury Acute on chronic renal failure CKD Stage 1 GFR >90 CKD Stage 2 GFR 60-89 CKD Stage 3 GFR 30-59 CKD Stage 4 GFR 15-29 CKD Stage 5 GFR <15 Chronic renal failure/Chronic Kidney disease (CKD) please stage (if known): CKD Stage 1 GFR >90 CKD Stage 2 GFR 60-89 CKD Stage 3 GFR 30-59 CKD Stage 4 GFR 15-29 CKD Stage 5 GFR <15 Other, please specify Unable to determine MTDD
--- NOTE | 2020-07-12 14:56 | CDI ---
Documentation Clarification Form Date: 07/12/20 From: Jazmyn Horton CCS Phone: If you have a question about this query, please contact Kandy Dominguez, Loan Administrator at [phone] between 8am and 5pm. Admit Date: 07/08/20 Discharge Date:07/11/20 Patient Name: Anita Wilcox Visit Number: [id number] ATTENTION: The Clinical Documentation Specialists (CDI) and [facility] Coding Staff appreciate your assistance in clarifying documentation. Please respond to the clarification below the line at the bottom and electronically sign. The CDI & [facility] Coding staff will review the response and follow-up if needed. Please note: Queries are made part of the Legal Health Record. If you have any questions, please contact the author of this message via ITS. Dear Dr. Wilson, The patients principal diagnosis has not been clearly identified and requires clarification. Patient is admitted to Observation status 07/06 with chest pain, hypokalemia, intoxication. Patient is admitted to Inpatient status from Observation 07/08. PNs 07/08 document: This lady was doing well last night and was expected that she will go home today, but she is complaining of shortness of breath and her potassium is elevated History/Risk factors: HTN, CHF, Anemia, Alchohol, Cirrhosis Clinical Indicators: Hyperkalemia, SOB Lab findings: Potassium 6.0, 6.9 C-Xray: Marked cardiomegaly and mild pulmonary edema appears similar to 07/05/2020 and 07/04/2020 comparisons Vitals: BP 92/56, RR 20, GA 55, O2 Sat 92 Treatment: Hand nebulizer, Oxygen nasal cannula 2 lpm In your professional opinion, can you please clarify which diagnosis, after study, was the reason chiefly responsible for the admission from Observation to Inpatient status? Hyperkalemia Bronchospasm Acute respiratory failure Shortness of breath Chest Pain Other Unable to determine MTDD
--- NOTE | 2020-07-16 20:57 | MISC ---
MISCELLANOUS REPORT Other: No renal failure. Initial diagnosis: Reason is chest pain. MMODL / IJN: [id number] /
--- NOTE | 2020-07-16 20:57 | MISC ---
MISCELLANOUS REPORT Chronic diastolic heart failure. MMODL / IJN: [id number] /
== END 2020-07-11 17:18 | disposition home or self-care (01) | DRG 641 ==
LOC: EC 22:56 → 1SOBS 07-06 02:21 → 3SCARD 07-06 04:53 → OBSVTOIN 07-08 12:50 → 3SCARD 07-08 23:03
PROVIDERS: ADMIT Family Medicine; ATTEND Family Medicine
DX: E87.5 Hyperkalemia (principal); I42.6 Alcoholic cardiomyopathy; K92.2 Gastrointestinal hemorrhage, unspecified; I50.32 Chronic diastolic (congestive) heart failure; I27.22 Pulmonary hypertension due to left heart disease; I48.0 Paroxysmal atrial fibrillation; F10.220 Alcohol dependence with intoxication, uncomplicated; D50.0 Iron deficiency anemia secondary to blood loss (chronic); E86.0 Dehydration; I11.0 Hypertensive heart disease with heart failure; K74.60 Unspecified cirrhosis of liver; E87.6 Hypokalemia; F41.1 Generalized anxiety disorder; F32.9 Major depressive disorder, single episode, unspecified; R07.89 Other chest pain; E83.42 Hypomagnesemia; I45.10 Unspecified right bundle-branch block; I08.3 Combined rheumatic disorders of mitral, aortic and tricuspid valves; S20.01XA Contusion of right breast, initial encounter; J98.01 Acute bronchospasm; Y90.8 Blood alcohol level of 240 mg/100 ml or more; R79.89 Other specified abnormal findings of blood chemistry; Z79.01 Long term (current) use of anticoagulants; Z79.899 Other long term (current) drug therapy; Z86.19 Personal history of other infectious and parasitic diseases; Z87.74 Personal history of (corrected) congenital malformations of heart and circulatory system; Z87.891 Personal history of nicotine dependence; Z91.19 Patient's noncompliance with other medical treatment and regimen; V89.2XXA Person injured in unspecified motor-vehicle accident, traffic, initial encounter
CPT/HCPCS: 36415; 71046; 80048; 80053; 80320; 83735; 83880; 84132; 84484; 85025; 85379; 85610; 85730; 93005; 94640; 96365; 96375; 99285

== ENCOUNTER 2020-07-26 16:12 | Inpatient (IN) | payer OTHER ==
--- NOTE | 2020-07-26 16:26 | ED ---
Psych HPI - General Stated Complaint: Mental Health Time Seen by Provider: 07/26/20 16:12 Source: patient, police, RN notes reviewed, old records reviewed - History of Present Illness Initial Comments: This is a 34-year-old female was brought in by police and EMS for depression and suicidal ideation. She states she may have taken extra of some of her medication but she states she wasn't tenderness over the medication. She denies any drugs or alcohol though per reports she did have the smell of alcohol on her breath. Other complaints or modifying factors she does have a history of heart disease she feels anxious she states but no chest pain or shortness of breath MD Complaint: suicidal ideation, feels depressed, other - Related Data Home Medications Medication Instructions Recorded Confirmed Digoxin [Digitek] 125 mcg PO DAILY 12/19/17 07/06/20 Spironolactone [Aldactone] 25 mg PO DAILY 12/19/17 07/06/20 Loratadine [Claritin] 10 mg PO DAILY 11/04/19 07/06/20 Metoprolol Tartrate [Lopressor] 200 mg PO DAILY 03/02/20 07/06/20 Escitalopram [Lexapro] 10 mg PO DAILY 03/11/20 07/06/20 LORazepam [Ativan] 0.5 mg PO HS PRN 06/10/20 07/06/20 Magnesium Oxide [Mag-Ox] 400 mg PO BID 06/10/20 07/06/20 Ferrous Sulfate [Iron] 325 mg PO AC-TID 06/27/20 07/06/20 diphenhydrAMINE [Benadryl] 25 mg PO HS PRN 07/06/20 07/06/20 Previous Rx's Medication Instructions Recorded Pantoprazole [Protonix] 40 mg PO AC-BID #60 tablet. 11/10/19 Thiamine [Vitamin B-1] 100 mg PO BID-W/MEALS #100 tab 02/13/20 Potassium Chloride [Klor-Con 20] 40 meq PO BID 3 Days #12 tab 05/07/20 Furosemide [Lasix] 20 mg PO DAILY #10 tab 07/11/20 Warfarin [Coumadin] 4 mg PO ONCE@1800 tab 07/11/20 Allergies Allergy/AdvReac Type Severity Reaction Status Date / Time No Known Allergies Allergy Verified 07/26/20 16:38 Review of Systems ROS Statement: Those systems with pertinent positive or pertinent negative responses have been documented in the HPI. ROS Other: All systems not noted in ROS Statement are negative. Past Medical History Past Medical History: Atrial Fibrillation, Heart Failure Additional Past Medical History / Comment(s): Afib with RVR, pt had t ransposition of great arteries as an , hypomagnesemia, anemia. History of Any Multi-Drug Resistant Organisms: ESBL Date of last positivie culture/infection: 02/25/17 ESBL-Klebsiella MDRO Source:: Urine Past Surgical History: No Surgical Hx Reported Additional Past Surgical History / Comment(s): open heart surg for transposition of great arteries, CARDIOVERTED FOR A- FIB twice Past Anesthesia/Blood Transfusion Reactions: No Reported Reaction Past Psychological History: Anxiety, Depression Additional Psychological History / Comment(s): UNEMPLOYED ETOH Smoking Status: Former smoker Past Alcohol Use History: Abuse, Daily Additional Past Alcohol Use History / Comment(s): Pt started smoking in 2002 and quit in 2017. Pt states she used to be a heavy drinker, states she currently has 2-3 glasses of wine daily. Past Drug Use History: None Reported - Past Family History Mother Family Medical History: No Reported History Additional Family Medical History / Comment(s): Mother is healthy Father Family Medical History: No Reported History Additional Family Medical History / Comment(s): Father is healthy General Exam - General Exam Comments Initial Comments: This a well-developed well-nourished awake alert oriented history female she is very anxious and tearful. Is a smell of alcohol conjoinerson her breath General appearance: alert, anxious Head exam: Present: atraumatic, normocephalic, normal inspection Eye exam: Present: normal appearance, PERRL, EOMI. Absent: scleral icterus, conjunctival injection, periorbital swelling ENT exam: Present: normal exam, mucous membranes moist Neck exam: Present: normal inspection. Absent: tenderness, meningismus, lymphadenopathy Respiratory exam: Present: normal lung sounds bilaterally. Absent: respiratory distress, wheezes, rales, rhonchi, stridor Cardiovascular Exam: Present: regular rate, normal rhythm, normal heart sounds. Absent: systolic murmur, diastolic murmur, rubs, gallop, clicks GI/Abdominal exam: Present: soft, normal bowel sounds. Absent: distended, tenderness, guarding, rebound, rigid Extremities exam: Present: normal inspection, full ROM, normal capillary refill. Absent: tenderness, pedal edema, joint swelling, calf tenderness Back exam: Present: normal inspection Neurological exam: Present: alert, oriented X3, CN II-XII intact Psychiatric exam: Present: normal affect, normal mood Skin exam: Present: warm, dry, intact, normal color. Absent: rash Course Vital Signs 07/26/20 16:15 Temperature 98.3 F Pulse Rate 112 H Respiratory 22 Rate Blood Pressure 116/80 O2 Sat by Pulse 96 Oximetry Medical Decision Making - Medical Decision Making I did discuss the findings with the patient and Dr. Wilson. Patient will be admitted and treated for alcohol intoxication of a troponin and depression. - Lab Data Result diagrams: 07/26/20 16:43 07/26/20 16:43 Lab Results 07/26/20 07/26/20 07/26/20 Range/Units 16:43 16:43 16:43 WBC 8.8 (3.8-10.6) k/uL RBC 4.52 (3.80-5.40) m/uL Hgb 11.9 (11.4-16.0) gm/dL Hct 40.2 (34.0-46.0) % MCV 88.7 (80.0-100.0) fL MCH 26.3 (25.0-35.0) pg MCHC 29.6 L (31.0-37.0) g/dL RDW 24.5 H (11.5-15.5) % Plt Count 556 H D (150-450) k/uL Neutrophils % 59 % Lymphocytes % 29 % Monocytes % 6 % Eosinophils % 2 % Basophils % 2 % Neutrophils # 5.2 (1.3-7.7) k/uL Lymphocytes # 2.5 (1.0-4.8) k/uL Monocytes # 0.5 (0-1.0) k/uL Eosinophils # 0.2 (0-0.7) k/uL Basophils # 0.2 (0-0.2) k/uL Hypochromasia Marked Anisocytosis Marked Microcytosis Moderate Sodium 141 (137-145) mmol/L Potassium 3.5 (3.5-5.1) mmol/L Chloride 102 (98-107) mmol/L Carbon Dioxide 22 (22-30) mmol/L Anion Gap 17 mmol/L BUN 4 L (7-17) mg/dL Creatinine 0.61 (0.52-1.04) mg/dL Est GFR (CKD-EPI)AfAm >90 (>60 ml/min/1.73 sqM) Est GFR (CKD-EPI)NonAf >90 (>60 ml/min/1.73 sqM) Glucose 135 H (74-99) mg/dL Calcium 9.2 (8.4-10.2) mg/dL Magnesium 1.5 L (1.6-2.3) mg/dL Total Bilirubin 1.8 H (0.2-1.3) mg/dL AST 37 H (14-36) U/L ALT 18 (4-34) U/L Alkaline Phosphatase 117 (38-126) U/L Creatine Kinase 42 (30-135) U/L Troponin I 0.058 H* (0.000-0.034) ng/mL NT-Pro-B Natriuret Pep pg/mL Total Protein 7.0 (6.3-8.2) g/dL Albumin 4.3 (3.5-5.0) g/dL Lipase 230 (23-300) U/L Salicylates <1.0 mg/dL Acetaminophen <10.0 ug/mL Serum Alcohol 400 H* mg/dL 07/26/20 Range/Units 16:43 WBC (3.8-10.6) k/uL RBC (3.80-5.40) m/uL Hgb (11.4-16.0) gm/dL Hct (34.0-46.0) % MCV (80.0-100.0) fL MCH (25.0-35.0) pg MCHC (31.0-37.0) g/dL RDW (11.5-15.5) % Plt Count (150-450) k/uL Neutrophils % % Lymphocytes % % Monocytes % % Eosinophils % % Basophils % % Neutrophils # (1.3-7.7) k/uL Lymphocytes # (1.0-4.8) k/uL Monocytes # (0-1.0) k/uL Eosinophils # (0-0.7) k/uL Basophils # (0-0.2) k/uL Hypochromasia Anisocytosis Microcytosis Sodium (137-145) mmol/L Potassium (3.5-5.1) mmol/L Chloride (98-107) mmol/L Carbon Dioxide (22-30) mmol/L Anion Gap mmol/L BUN (7-17) mg/dL Creatinine (0.52-1.04) mg/dL Est GFR (CKD-EPI)AfAm (>60 ml/min/1.73 sqM) Est GFR (CKD-EPI)NonAf (>60 ml/min/1.73 sqM) Glucose (74-99) mg/dL Calcium (8.4-10.2) mg/dL Magnesium (1.6-2.3) mg/dL Total Bilirubin (0.2-1.3) mg/dL AST (14-36) U/L ALT (4-34) U/L Alkaline Phosphatase (38-126) U/L Creatine Kinase (30-135) U/L Troponin I (0.000-0.034) ng/mL NT-Pro-B Natriuret Pep 3210 pg/mL Total Protein (6.3-8.2) g/dL Albumin (3.5-5.0) g/dL Lipase (23-300) U/L Salicylates mg/dL Acetaminophen ug/mL Serum Alcohol mg/dL - EKG Data -: EKG Interpreted by Me EKG Comments: Social history of a first-degree AV block occasional PVCs. MD interval 224 QRS duration 162 QT since QTC 420/516 at exodeviation right bundle-branch VENTRICULAR hypertrophy old inferior changes - Radiology Data Radiology results: report reviewed (Did review the imaging and report no definite acute changes his chronic pulmonary vascular congestion), image reviewed Disposition Clinical Impression: Alcohol intoxication, Elevated troponin, Hypomagnesemia, Depression, Suicidal ideation Disposition: ADMITTED IP TO THIS HOSP Condition: Fair Referrals: Rodney Wilson MD [Primary Care Provider] - 1-2 days
[2020-07-26 16:58] LABS: Anisocytosis Marked; Basophils # (A) 0.2 k/uL (0-0.2); Basophils % (A) 2 %; Eosinophils # (A) 0.2 k/uL (0-0.7); Eosinophils % (A) 2 %; HCT 40.2 % (34.0-46.0); HGB 11.9 gm/dL (11.4-16.0); Hypochromasia Marked; Lymphocytes # (A) 2.5 k/uL (1.0-4.8); Lymphocytes % (A) 29 %; MCH 26.3 pg (25.0-35.0); MCHC 29.6 g/dL (31.0-37.0); MCV 88.7 fL (80.0-100.0); Mean Platelet Volume 7.3; Microcytosis Moderate; Monocytes # (A) 0.5 k/uL (0-1.0); Monocytes % (A) 6 %; Neutrophils # (A) 5.2 k/uL (1.3-7.7); Neutrophils % (A) 59 %; RBC 4.52 m/uL (3.80-5.40); RDW 24.5 % (11.5-15.5); WBC 8.8 k/uL (3.8-10.6)
[2020-07-26 17:00] LABS: Platelet Count 556 k/uL (150-450)
[2020-07-26 17:02] LABS: ALT 18 U/L (4-34); AST 37 U/L (14-36); Acetaminophen <10.0 ug/mL; African American GFR (CKD) >90 (>60 ml/min/1.73 sqM); Albumin 4.3 g/dL (3.5-5.0); Alkaline Phosphatase 117 U/L (38-126); Anion Gap 17 mmol/L; Blood Urea Nitrogen 4 mg/dL (7-17); Calcium 9.2 mg/dL (8.4-10.2); Carbon Dioxide 22 mmol/L (22-30); Chloride 102 mmol/L (98-107); Creatine Kinase 42 U/L (30-135); Glucose 135 mg/dL (74-99); Magnesium 1.5 mg/dL (1.6-2.3); Non-African American GFR(CKD) >90 (>60 ml/min/1.73 sqM); Potassium 3.5 mmol/L (3.5-5.1); Salicylate <1.0 mg/dL; Sodium 141 mmol/L (137-145); Total Bilirubin 1.8 mg/dL (0.2-1.3)
[2020-07-26 17:15] LABS: Alcohol 400 mg/dL
--- NOTE | 2020-07-26 17:18 | XR ---
EXAMINATION TYPE: XR chest 2V DATE OF EXAM: 07/26/2020 COMPARISON: 07/08/2020 HISTORY: Short of breath Heart is enlarged. There is mild pulmonary congestion. There is no pleural effusion. The bony thorax is intact. There is no mediastinal adenopathy. There are sternal wires. IMPRESSION: There is cardiomegaly and mild pulmonary congestion. Mild pulmonary interstitial edema un changed compared to recent exam.
[2020-07-26] MEDS ORDERED: THIAMINE 100 MG TAB PO SCH (17:30)
[2020-07-26] MEDS ORDERED: LORazepam 2 MG/ML INJ IV STA (17:35)
[2020-07-26] MEDS ORDERED: NALOXONE 0.4 MG/ML 1 ML VIAL IV PRN (17:45)
[2020-07-26] MEDS ORDERED: LORazepam 0.5 MG TAB PO PRN (17:47)
[2020-07-26] MEDS ORDERED: LORazepam 2 MG/ML INJ IV PRN ×2 (17:47)
[2020-07-26] MEDS ORDERED: THIAMINE 100 MG/ML 2 ML VIAL IM STA (17:47)
[2020-07-26] MEDS: MAGNESIUM SULFATE-D5W PMX 1 GM in DEXTROSE/WATER 1 100ML.BAG IVPB SCH ×2 (18:24→20:01)
[2020-07-26 18:26] LABS: Amphetamine Screen,Urine Not Detected (NotDetected); Barbiturate Screen,Urine Not Detected (NotDetected); Benzodiazepines Screen,Urine Detected (NotDetected); Cocaine Screen,Urine Not Detected (NotDetected); Methadone Screen, Urine Not Detected (NotDetected); Oxycodone Screen, Urine Not Detected (NotDetected); Phencyclidine Screen,Urine Not Detected (NotDetected); Tricyclic Antidepressant,Urine Not Detected (NotDetected); Urn Cannabinoid Scrn Not Detected (NotDetected)
[2020-07-26 18:43] LABS: Opiate Screen,Urine Not Detected (NotDetected)
[2020-07-26] MEDS: POTASSIUM CHLORIDE ER 20 MEQ TAB.ER PO SCH (20:39)
[2020-07-26] MEDS: MAGNESIUM OXIDE 400 MG TAB PO SCH (20:39)
[2020-07-26] MEDS: diphenhydrAMINE 25 MG CAP PO PRN (20:43)
[2020-07-26] MEDS: LORazepam 2 MG/ML INJ IV PRN (23:10)
[2020-07-27] MEDS: LORazepam 2 MG/ML INJ IV PRN ×4 (02:24→20:52)
[2020-07-27] MEDS: PANTOPRAZOLE 40 MG TABLET PO SCH ×2 (06:28→18:06)
[2020-07-27] MEDS: FERROUS SULFATE 325 MG TAB PO SCH ×3 (06:28→18:06)
[2020-07-27] MEDS: THIAMINE 100 MG TAB PO SCH ×2 (06:28→18:06)
[2020-07-27] MEDS: LORATADINE 10 MG TAB PO SCH (09:07)
[2020-07-27] MEDS: METOPROLOL TARTRATE 50 MG TAB PO SCH (09:08)
[2020-07-27] MEDS: DIGOXIN 125 MCG TAB PO SCH (09:08)
[2020-07-27] MEDS: MAGNESIUM OXIDE 400 MG TAB PO SCH ×2 (09:08→20:52)
[2020-07-27] MEDS: FUROSEMIDE 20 MG TAB PO SCH (09:08)
[2020-07-27] MEDS: SPIRONOLACTONE 25 MG TAB PO SCH (09:08)
[2020-07-27] MEDS: POTASSIUM CHLORIDE ER 20 MEQ TAB.ER PO SCH ×2 (09:08→20:52)
[2020-07-27] MEDS: ESCITALOPRAM 10 MG TAB PO SCH (09:08)
[2020-07-27] MEDS: ONDANSETRON 4 MG/2 ML VIAL IVP PRN ×2 (09:13→14:46)
[2020-07-27] MEDS ORDERED: IOPAMIDOL CONTRAST (ORAL USE) VIAL PO PRN (10:32)
[2020-07-27 11:53] LABS: Prothrombin Time 29.6 sec (9.0-12.0)
--- NOTE | 2020-07-27 12:54 | CT ---
EXAMINATION TYPE: CT abdomen pelvis w con DATE OF EXAM: 07/27/2020 HISTORY: LLQ pain CT DLP: 704.9mGycm Automated Exposure Control for Dose Reduction was Utilized. CONTRAST: CT scan of the abdomen and pelvis is performed with IV Contrast, patient injected with 100 mL of Isov ue 300. COMPARISON: CT abdomen and pelvis February 08, 2020 FINDINGS: LUNG BASES: Persistent cardiomegaly with moderate biventricular dilatation and moderate right atrial dilatation partially imaged. Mild to moderate parenchymal fibrotic and atelectatic change at both bas es redemonstrated LIVER/GB: Liver is heterogeneously hypodense consistent with diffuse fatty infiltration. Liver size s table and upper limits of normal. PANCREAS: Increasing focal prominence at level of pancreatic head with moderate to severe ill-defined fluid and fat stranding. New well-defined 1.1 cm low dense lesion in the pancreatic head axial image 32. No definitive focal areas of nonenhancement. SPLEEN: No significant abnormality is seen. ADRENALS: No significant abnormality is seen. KIDNEYS: Symmetrical medullary uptake and excretion from both kidneys without hydronephrosis seen conchis aterally. BOWEL: The oral contrast only reaches distal ileal loops in the left abdomen. No suspicious small or large bowel dilatation. Suboptimal evaluation of distal bowel noted. Mild to moderate wall thickening in colon from hepatic flexure through rectum. UTERUS/ADNEXA: There is anteverted uterus. Both ovaries seen axial image 71 and upper limits of victoriano l in size. Moderate amount of free fluid in pelvis axial image 74. LYMPH NODES: No greater than 1cm abdominal or pelvic lymph nodes are appreciated. Persistent prominen t but subcentimeter retroperitoneal lymph nodes in particular left periaortic lymph nodes increased i n size from prior. OSSEOUS STRUCTURES: Transitional type vertebra lumbosacral junction. OTHER: No significant additional abnormality is seen. IMPRESSION: Findings consistent with a fairly severe acute pancreatitis. There is new 1.1 cm focal th in-walled fluid collection from prior CT in the pancreatic head consistent with acute peripancreatic fluid collection or pseudocyst. Correlate clinically.
[2020-07-27] MEDS: SODIUM CHLORIDE 0.9% 1,000 ML IV SCH ×2 (14:46→20:53)
[2020-07-27] MEDS: HYDROmorphone 0.5 MG/0.5 ML SYRINGE IVP PRN ×3 (14:47→22:48)
--- NOTE | 2020-07-27 15:34 | HP ---
HISTORY AND PHYSICAL CHIEF COMPLAINT: Acute alcohol intoxication. HISTORY OF PRESENT ILLNESS: This is another admission for this 34-year-old white female who was brought to the emergency room by police in an intoxicated state. Blood alcohol is over 400. She is also talking about suicide. She had had a major problem with alcohol consumption. She is creating numerous secondary disease processes because of this. She has had episodes of GI bleeding and had to be transfused. She has had legal problems. She has congenital heart disease and alcohol is likely to be affecting that. REVIEW OF SYSTEMS: She is having headache, but no focal neurologic findings or changes in vision or hearing. She has had no chest pain, cough, hemoptysis, abdominal pain. She is nauseated. She has had no hematemesis or melena. She has had no diarrhea. Renal function is normal and she has had no dysuria. Past medical history, family history and personal and social histories are all otherwise unremarkable and unchanged from her recent admitting and discharge summaries. She has been doing fairly well and was seen in the office recently and was not drinking. It is not known if she is taking her medications. PHYSICAL EXAMINATION: Blood pressure is 140/90 with a pulse of 84, respirations of 35, and she is afebrile. In general she appeared to be tanned and she was intoxicated. Head, ears, eyes, nose, mouth, and throat were normal. Neck veins are not distended. Chest is clear. Cardiac exam demonstrated sinus tachycardia with a grade 1/6 systolic murmur. There is no S4. The abdomen is soft and nontender without visceromegaly or masses. Bowel sounds present. Extremities are normal. Neurologically she is intact. IMPRESSION: 1. Acute alcohol intoxication. 2. Chronic alcoholism. 3. Major depression with suicidal thoughts. 4. Congenital heart disease. PLAN: 1. Bed rest. 2. IV fluids. 3. CIWA protocol. 4. Psych consult. MMODL / IJN: [id number] /
--- NOTE | 2020-07-27 15:40 | PN ---
PROGRESS NOTE DATE OF SERVICE: 07/27/2020 CHIEF COMPLAINT: 1. Acute alcohol intoxication. 2. Chronic alcoholism. 3. Depression. 4. Suicidal thoughts. 5. Elevated lipase. 6. Epigastric pain. HISTORY OF PRESENT ILLNESS: This lady is complaining of a lot of abdominal pain and CT suggests that she has pancreatitis. She continues to have significant discomfort in the abdomen with nausea and vomiting. REVIEW OF SYSTEMS: Otherwise normal. PHYSICAL EXAMINATION: She is slightly dehydrated. Chest is clear. Cardiac exam demonstrates sinus tachycardia. The abdomen is generally tender over the upper half. Extremities are normal. IMPRESSION: 1. Acute alcohol intoxication. 2. Chronic alcoholism. 3. Major depression. 4. Suicidal thoughts. 5. Congenital heart disease. 6. Alcoholic pancreatitis. PLAN: 1. GI consult. 2. Analgesics. 3. Increase IV fluids. MMODL / IJN: [id number] /
[2020-07-27] MEDS ORDERED: WARFARIN 2 MG TAB PO ONE (18:00)
[2020-07-27 20:51] LABS: Anisocytosis Moderate; Basophils # (A) 0.2 k/uL (0-0.2); Basophils % (A) 1 %; Eosinophils # (A) 0.1 k/uL (0-0.7); Eosinophils % (A) 1 %; HCT 38.4 % (34.0-46.0); HGB 11.6 gm/dL (11.4-16.0); Hypochromasia Marked; Lymphocytes # (A) 0.6 k/uL (1.0-4.8); Lymphocytes % (A) 5 %; MCH 27.7 pg (25.0-35.0); MCHC 30.3 g/dL (31.0-37.0); MCV 91.5 fL (80.0-100.0); Macrocytosis Slight; Mean Platelet Volume 7.5; Microcytosis Slight; Monocytes # (A) 0.5 k/uL (0-1.0); Monocytes % (A) 4 %; Neutrophils # (A) 12.3 k/uL (1.3-7.7); Neutrophils % (A) 90 %; Platelet Count 324 k/uL (150-450); RBC 4.19 m/uL (3.80-5.40); RDW 23.8 % (11.5-15.5); WBC 13.7 k/uL (3.8-10.6)
[2020-07-27] MEDS: diphenhydrAMINE 25 MG CAP PO PRN (20:52)
[2020-07-27 21:04] LABS: African American GFR (CKD) >90 (>60 ml/min/1.73 sqM); Anion Gap 10 mmol/L; Blood Urea Nitrogen 5 mg/dL (7-17); Calcium 8.9 mg/dL (8.4-10.2); Carbon Dioxide 24 mmol/L (22-30); Chloride 102 mmol/L (98-107); Glucose 111 mg/dL (74-99); Magnesium 1.6 mg/dL (1.6-2.3); Non-African American GFR(CKD) >90 (>60 ml/min/1.73 sqM); Potassium 4.3 mmol/L (3.5-5.1); Sodium 136 mmol/L (137-145)
[2020-07-28] MEDS: HYDROmorphone 0.5 MG/0.5 ML SYRINGE IVP PRN ×5 (02:25→20:55)
[2020-07-28] MEDS: LORazepam 2 MG/ML INJ IV PRN ×4 (04:41→23:40)
[2020-07-28] MEDS: SODIUM CHLORIDE 0.9% 1,000 ML IV SCH ×3 (04:42→20:57)
[2020-07-28 05:48] LABS: Anisocytosis Moderate; Basophils # (A) 0.2 k/uL (0-0.2); Basophils % (A) 2 %; Eosinophils # (A) 0.1 k/uL (0-0.7); Eosinophils % (A) 1 %; HCT 38.5 % (34.0-46.0); HGB 11.5 gm/dL (11.4-16.0); Hypochromasia Marked; Lymphocytes # (A) 0.7 k/uL (1.0-4.8); Lymphocytes % (A) 7 %; MCH 27.4 pg (25.0-35.0); MCHC 29.9 g/dL (31.0-37.0); MCV 91.5 fL (80.0-100.0); Macrocytosis Slight; Mean Platelet Volume 7.6; Microcytosis Slight; Monocytes # (A) 0.4 k/uL (0-1.0); Monocytes % (A) 4 %; Neutrophils # (A) 8.5 k/uL (1.3-7.7); Neutrophils % (A) 85 %; Platelet Count 267 k/uL (150-450); RDW 23.3 % (11.5-15.5)
[2020-07-28 05:56] LABS: African American GFR (CKD) >90 (>60 ml/min/1.73 sqM); Anion Gap 5 mmol/L; Blood Urea Nitrogen 4 mg/dL (7-17); Calcium 8.5 mg/dL (8.4-10.2); Carbon Dioxide 24 mmol/L (22-30); Chloride 102 mmol/L (98-107); Glucose 97 mg/dL (74-99); Magnesium 1.6 mg/dL (1.6-2.3); Non-African American GFR(CKD) >90 (>60 ml/min/1.73 sqM); Potassium 4.4 mmol/L (3.5-5.1); Sodium 131 mmol/L (137-145)
[2020-07-28 06:01] LABS: INR 3.6 (<1.2); Prothrombin Time 35.1 sec (9.0-12.0)
[2020-07-28] MEDS: FERROUS SULFATE 325 MG TAB PO SCH ×3 (06:29→17:07)
[2020-07-28] MEDS: THIAMINE 100 MG TAB PO SCH ×2 (06:29→17:07)
[2020-07-28] MEDS: PANTOPRAZOLE 40 MG TABLET PO SCH ×2 (06:29→17:07)
[2020-07-28] MEDS ORDERED: Magnesium Replacement Protocol 1 EACH MISC MISCELLANE PRN (08:39)
[2020-07-28] MEDS: MAGNESIUM OXIDE 400 MG TAB PO SCH ×2 (09:20→20:56)
[2020-07-28] MEDS: ESCITALOPRAM 10 MG TAB PO SCH (09:20)
[2020-07-28] MEDS: LORATADINE 10 MG TAB PO SCH (09:20)
[2020-07-28] MEDS: FUROSEMIDE 20 MG TAB PO SCH (09:20)
[2020-07-28] MEDS: DIGOXIN 125 MCG TAB PO SCH (09:20)
[2020-07-28] MEDS: POTASSIUM CHLORIDE ER 20 MEQ TAB.ER PO SCH ×2 (09:20→20:56)
[2020-07-28] MEDS: SPIRONOLACTONE 25 MG TAB PO SCH (09:21)
[2020-07-28] MEDS: METOPROLOL TARTRATE 50 MG TAB PO SCH (09:21)
[2020-07-28] MEDS: MAGNESIUM SULFATE-D5W PMX 1 GM in DEXTROSE/WATER 1 100ML.BAG IVPB SCH ×2 (09:21→12:01)
--- NOTE | 2020-07-28 09:25 | P.CN ---
Psychiatric Consult - . Consult date: 07/28/20 Consult:: 07/28/20 09:17 Thanks for the consult HPI: This is a 34-year-old female was brought in by police and EMS for depression and suicidal ideation. She states she may have taken extra of some of her medication. She denies any drugs or alcohol though per reports she did have the smell of alcohol on her breath. Other complaints or modifying factors: she does have a history of heart disease she feels anxious she states but no chest pain or shortness of breath The patient was seen in her room for 25 min and she denies any suicidal ideation since coming into the hospital. 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 She says that she had been doing well until she spent a couple days hanging out with friends who drink and relapsed. She says that she does have friends who dont drink and that she needs to cultivate these. She has a lifestyle coordinator that she see weekly and a psychiatrist who was talking about increasing her Lexapro but wanted cardiology input first. Mental status: she has good concentration and normal response times, good eye contact, alert, logical, no evidence of psychosis. She sat up and interacted well with me. ASSESSMENT: She is not currently a danger to self
--- NOTE | 2020-07-28 11:19 | CONS ---
CONSULTATION DATE OF SERVICE: July 28, 2020. REQUESTING PHYSICIAN: Dr. Wilson. REASON FOR CONSULTATION: Acute pancreatitis. HISTORY OF PRESENT ILLNESS: The patient is a 34-year-old white female with history of alcohol abuse, history of hypertension, paroxysmal atrial fibrillation, on anticoagulation therapy, was admitted to the hospital because of acute alcoholic intoxication. She was noted to have a hemoglobin alcohol level of 480 at the time of admission to the hospital. The next day patient was complaining of abdominal pain and hence she underwent a CT of the abdomen and pelvis done that showed changes consistent with acute severe pancreatitis. The patient apparently was having some epigastric pain for the last 2 days duration. This morning she is feeling much better. She was started on a clear liquid diet already and she is doing better. She states that she has been drinking alcohol quite frequently. She usually drinks about 2-3 glasses every day. This morning, she denies any nausea, vomiting. No rectal bleeding or melena. Overall she is feeling much better. PAST MEDICAL HISTORY: Atrial fibrillation, congestive heart failure, gastroesophageal reflux disease, alcohol abuse. MEDICATIONS: Medications at home include iron, magnesium oxide, Ativan, Lexapro, Lopressor, Claritin, Aldactone, Digitek, Coumadin, Bentyl Protonix, and Lasix. ALLERGIES: None. SOCIAL HISTORY: Chronic alcohol abuse of several years duration. Former smoker. 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 ALLERGIES: None. FAMILY HISTORY: Mother healthy. Father healthy. REVIEW OF SYSTEMS: CARDIOPULMONARY: She denies any chest pain, no shortness of breath. no dysuria or hematuria. MUSCULOSKELETAL unremarkable. NEUROLOGY unremarkable. PSYCHIATRIC: Anxiety and depression. ENT/VISION: Unremarkable. CONSTITUTIONAL: No recent weight loss. No fever, chills, night sweats. HEMATOLOGY unremarkable. ENDOCRINE unremarkable. PHYSICAL EXAMINATION: She appears comfortable. No apparent distress. Vital signs stable. Blood pressure 122/82, pulse rate 103, temperature 99.4. HEENT examination unremarkable. Conjunctivae pink. Sclerae anicteric. Oral cavity no lesions. NECK no JVD. No lymph node enlargement. CHEST: Clear to auscultation. HEART: Regular rate and rhythm. ABDOMEN: Soft. There was very minimal tenderness in the epigastric area on deep palpation. EXTREMITIES: No pedal edema. SKIN: No rashes. NEUROLOGIC: Alert and oriented x3. No focal deficits. LABS: WBC 10, hemoglobin 11.5, platelets normal. INR is 3.6. Sodium 136, potassium 4.3, chloride 102, CO2 is 24. BUN and creatinine are within normal limits. Lipase was done 2 days ago that was 230. CT of the abdomen and pelvis done yesterday showed increasing focal prominence at the level of the pancreatic head with moderate to severe ill defined fluid and fat stranding in the pancreas with a 1.1 cm low-dense lesion in the head of the pancreas consistent with a pseudocyst. Liver was hypodense and heterogeneous consistent with diffuse fatty infiltration. IMPRESSION: 1. Acute alcoholic pancreatitis. The patient with multiple episodes of pancreatitis in the past. Last admission was about 6 months ago. Surprisingly during this hospitalization, her lipase is normal. However, CT scan showed changes consistent with acute pancreatitis and possible 1.5 cm pseudocyst in the pancreas. 2. Mild elevation of serum transaminases secondary to alcoholic liver disease. 3. History of heavy alcohol abuse. 4. Acute alcoholic intoxication, improving. 5. Atrial fibrillation on Coumadin. 6. History of congenital heart disease. RECOMMENDATIONS: 1. Continue with a clear liquid diet. 2. Pain medications as needed. 3. Abstinence from alcohol. 4. Repeat lipase tomorrow morning. 5. We will follow with you closely. Thank you for this consultation. JACOBOL / CARMENN: [id number] /
--- NOTE | 2020-07-28 16:37 | PN ---
PROGRESS NOTE DATE OF SERVICE: 07/28/2020 CHIEF COMPLAINT: Acute alcohol intoxication, chronic alcoholism, depression and suicidal thoughts. HISTORY OF PRESENT ILLNESS: This lady is fairly stable. She has not had DTs. She remains quite depressed. She is complaining a little bit of upper abdominal discomfort and distention. Psychiatry has seen her and feels she is not a threat to herself. She is not having any chest pain or shortness of breath. BNP is significantly elevated and her chest x-ray suggested that her lung congestion and cardiomegaly are compatible with her congestive heart failure. PHYSICAL EXAMINATION: Her chest is fairly clear with occasional rales. Breath sounds are somewhat diminished. Cardiac exam is unchanged with her usual murmur. Abdomen is soft and slightly distended. There may be small ascites. Neurologically she is intact. IMPRESSION: 1. Acute alcohol intoxication. 2. Chronic alcoholism. 3. Alcoholic hepatitis. 4. Cirrhosis. 5. Intraabdominal fluid consistent with ascites. 6. Congestive heart failure. 7. Congenital heart disease. PLAN: 1. Repeat laboratory studies. 2. Increase activity. 3. Possibly home tomorrow. MMODL / IJN: [id number] /
[2020-07-28] MEDS ORDERED: WARFARIN 0.5 MG TAB PO ONE (18:00)
[2020-07-28 21:15] VITALS: TEMP 97.4
[2020-07-29] MEDS: SODIUM CHLORIDE 0.9% 1,000 ML IV SCH ×2 (02:15→06:58)
[2020-07-29] MEDS: HYDROmorphone 0.5 MG/0.5 ML SYRINGE IVP PRN (02:15)
[2020-07-29] MEDS: diphenhydrAMINE 25 MG CAP PO PRN (02:21)
[2020-07-29 05:00] VITALS: PULSE 79
[2020-07-29 05:11] VITALS: RESP 18
[2020-07-29] MEDS: FERROUS SULFATE 325 MG TAB PO SCH (06:55)
[2020-07-29] MEDS: THIAMINE 100 MG TAB PO SCH (06:55)
[2020-07-29] MEDS: PANTOPRAZOLE 40 MG TABLET PO SCH (06:55)
[2020-07-29 08:54] LABS: Anisocytosis Moderate; Basophils # (A) 0.1 k/uL (0-0.2); Basophils % (A) 1 %; Eosinophils # (A) 0.1 k/uL (0-0.7); Eosinophils % (A) 1 %; HCT 39.7 % (34.0-46.0); HGB 11.5 gm/dL (11.4-16.0); Hypochromasia Marked; Lymphocytes # (A) 0.9 k/uL (1.0-4.8); Lymphocytes % (A) 8 %; MCH 27.9 pg (25.0-35.0); MCHC 28.9 g/dL (31.0-37.0); MCV 96.4 fL (80.0-100.0); Macrocytosis Slight; Mean Platelet Volume 8.2; Microcytosis Slight; Monocytes # (A) 0.7 k/uL (0-1.0); Monocytes % (A) 6 %; Neutrophils # (A) 9.4 k/uL (1.3-7.7); Neutrophils % (A) 82 %; Platelet Count 299 k/uL (150-450); RBC 4.12 m/uL (3.80-5.40); RDW 22.2 % (11.5-15.5); WBC 11.4 k/uL (3.8-10.6)
[2020-07-29 09:05] VITALS: BP 107/69
[2020-07-29] MEDS: POTASSIUM CHLORIDE ER 20 MEQ TAB.ER PO SCH (09:06)
[2020-07-29] MEDS: SPIRONOLACTONE 25 MG TAB PO SCH (09:06)
[2020-07-29] MEDS: FUROSEMIDE 20 MG TAB PO SCH (09:06)
[2020-07-29] MEDS: DIGOXIN 125 MCG TAB PO SCH (09:06)
[2020-07-29] MEDS: METOPROLOL TARTRATE 50 MG TAB PO SCH (09:06)
[2020-07-29] MEDS: LORATADINE 10 MG TAB PO SCH (09:06)
[2020-07-29] MEDS: ESCITALOPRAM 10 MG TAB PO SCH (09:06)
[2020-07-29] MEDS: MAGNESIUM OXIDE 400 MG TAB PO SCH (09:06)
[2020-07-29 09:10] LABS: Calcium 9.1 mg/dL (8.4-10.2); Magnesium 2.2 mg/dL (1.6-2.3); Potassium 5.6 mmol/L (3.5-5.1); Total Bilirubin 6.6 mg/dL (0.2-1.3); Total Protein 6.8 g/dL (6.3-8.2)
--- NOTE | 2020-07-29 09:57 | XR ---
EXAMINATION TYPE: XR chest 2V DATE OF EXAM: 07/29/2020 COMPARISON: 07/26/2020 TECHNIQUE: PA and lateral views submitted. HISTORY: Shortness of breath FINDINGS: Heart is enlarged and the mediastinum is widened. There is a coarsened interstitium with no pleural e ffusion or pneumothorax. Biapical pleural thickening. There is postoperative change. Prominent pulmon sammy arteries likely related to pulmonary arterial hypertension. IMPRESSION: 1. Cardiomegaly with widened mediastinum correlate clinically. Previous CT reports that the widened m ediastinum is due to congenital vascular anomaly. Mild venous congestion in the differential diagnosi s.
[2020-07-29 11:40] LABS: Prothrombin Time 59.9 sec (9.0-12.0)
--- NOTE | 2020-07-29 11:43 | US ---
EXAMINATION TYPE: US liver DATE OF EXAM: 07/29/2020 COMPARISON: CT,US CLINICAL HISTORY: elevated LFTs, ETOH hepatitis. pancreatitis per patient's RN, Nausea and vomiting EXAM MEASUREMENTS: Liver Length: 16.0 cm Gallbladder Wall: 0.45 cm CBD: 0.46 cm Right Kidney: 11.5 x 4.8 x 3.6 cm Pancreas: hypoechoic mixed mass in head of pancreas = 1.4 x 1.7 x 1.5cm, heterogeneous appearance to pancreas Liver: fatty liver as is hyperechoic to right renal cortex Gallbladder: thickened wall noted at neck and mid gallbladder Evidence for sonographic García's sign: no CBD: wnl Right Kidney: No hydronephrosis or masses seen IMPRESSION: 1. Hypoechoic mixed mass involving the head of the pancreas measuring 1.7 cm. Corresponds to the CT a bnormality. Differential diagnosis includes pancreatic neoplasm versus pancreatitis or complicated ps eudocyst. Correlate with serum tumor markers. 2. Nonspecific pattern of liver can be seen with fatty infiltration or diffuse hepatocellular disease correlate clinically. 3. Gallbladder wall is thickened measuring 5 mm and there is evidence of gallstones correlate for cho lecystitis..
[2020-07-29 11:46] LABS: INR 5.9 (<1.2)
--- NOTE | 2020-07-29 17:02 | DS ---
DISCHARGE SUMMARY CHIEF COMPLAINT: Acute alcohol intoxication, depression, suicidal thoughts. HISTORY OF PRESENT ILLNESS AND PHYSICAL EXAMINATION: Details of this lady's history and physical can be found in the initial workup. LABORATORY STUDIES: While she was in a hospital she had laboratory studies, details of which can be found in the laboratory section of her chart. COURSE IN THE HOSPITAL: After admission, she was placed on bedrest and on intravenous fluids and monitored for DTs. She stabilized and is doing well. The night before she left the hospital she became dyspneic and her pulse ox dropped into the high 80s. She had no chills, fever, chest pain, hemoptysis, etc. When she was seen the morning, she was doing much better. It was planned that this episode would be further worked up, but then she suddenly signed herself out AGAINST MEDICAL ADVICE on the morning of 07/29. FINAL DIAGNOSES: 1. Acute alcohol intoxication. 2. Chronic alcoholism. 3. Congenital heart disease. 4. Major depression with suicidal thoughts. OPERATIONS: None. CONSULTATIONS: Psychiatry. MMODRochelle / CAROLYN: [id number] /
== END 2020-07-29 11:56 | disposition left against medical advice (07) | DRG 439 ==
LOC: EC 16:12 → 3SCARD 17:49
PROVIDERS: ADMIT Family Medicine; ATTEND Family Medicine
DX: K85.20 Alcohol induced acute pancreatitis without necrosis or infection (principal); R45.851 Suicidal ideations; K86.3 Pseudocyst of pancreas; I48.0 Paroxysmal atrial fibrillation; E83.42 Hypomagnesemia; F10.229 Alcohol dependence with intoxication, unspecified; F32.9 Major depressive disorder, single episode, unspecified; I11.0 Hypertensive heart disease with heart failure; I50.9 Heart failure, unspecified; K70.11 Alcoholic hepatitis with ascites; K74.60 Unspecified cirrhosis of liver; Y90.8 Blood alcohol level of 240 mg/100 ml or more; K21.9 Gastro-esophageal reflux disease without esophagitis; Z87.891 Personal history of nicotine dependence; F41.9 Anxiety disorder, unspecified; I45.10 Unspecified right bundle-branch block; R79.89 Other specified abnormal findings of blood chemistry; Q24.9 Congenital malformation of heart, unspecified; Z79.01 Long term (current) use of anticoagulants; Z79.899 Other long term (current) drug therapy; I44.0 Atrioventricular block, first degree; Z65.3 Problems related to other legal circumstances
CPT/HCPCS: 36415; 71046; 74177; 76705; 80048; 80053; 80306; 80320; 80329; 81025; 82140; 82550; 83520; 83690; 83735; 83880; 84484; 85025; 85610; 93005; 96365; 96372; 96375; 99285

== ENCOUNTER 2020-08-14 22:35 | Emergency (ER) | payer OTHER ==
[2020-08-14 22:41] VITALS: BP 111/74; PULSE 109; RESP 24; TEMP 97.7
[2020-08-14] MEDS ORDERED: LORazepam 1 MG TAB PO STA (23:04)
--- NOTE | 2020-08-14 23:06 | ED ---
General Adult HPI - General Chief complaint: Anxiety Stated complaint: Chest pain Time Seen by Provider: 08/14/20 22:56 Source: patient, family Mode of arrival: wheelchair Limitations: no limitations - History of Present Illness Initial comments: 34-year-old female patient presents to the emergency department today for evaluation of anxiety. Patient states that she has been out of her lorazepam since . Patient states that she's been unable to requested a prescription from her doctor. States that her grandmother did pass away on Wednesday which is increased anxiety even more. Patient states she's had no appetite and has been staying with her mother so she has not been able to take her other medications either. Patient denies any suicidal or homicidal ideation. Denies any other concerning symptoms. Patient denies any recent rash, fever, chills, cough, shortness of breath, chest pain, abdominal pain, nausea, vomiting, diarrhea, constipation, back pain, numbness, tingling, dizziness, weakness, hematuria, dysuria, urinary urgency, urinary frequency, headache, visual changes, or any other complaints. - Related Data Home Medications Medication Instructions Recorded Confirmed Digoxin [Digitek] 125 mcg PO DAILY 12/19/17 07/26/20 Spironolactone [Aldactone] 25 mg PO DAILY 12/19/17 07/26/20 Loratadine [Claritin] 10 mg PO DAILY 11/04/19 07/26/20 Metoprolol Tartrate [Lopressor] 200 mg PO DAILY 03/02/20 07/26/20 Escitalopram [Lexapro] 10 mg PO DAILY 03/11/20 07/26/20 LORazepam [Ativan] 0.5 mg PO QAM 06/10/20 07/26/20 Magnesium Oxide [Mag-Ox] 400 mg PO BID 06/10/20 07/26/20 Ferrous Sulfate [Iron] 325 mg PO AC-TID 06/27/20 07/26/20 diphenhydrAMINE [Benadryl] 25 mg PO HS PRN 07/06/20 07/26/20 LORazepam [Ativan] 1 mg PO HS 07/26/20 07/27/20 Warfarin [Coumadin] 4 mg PO DAILY@1800 07/27/20 07/27/20 Previous Rx's Medication Instructions Recorded Pantoprazole [Protonix] 40 mg PO AC-BID #60 tablet.dr 11/10/19 Thiamine [Vitamin B-1] 100 mg PO BID-W/MEALS #100 tab 02/13/20 Potassium Chloride [Klor-Con 20] 40 meq PO BID 3 Days #12 tab 05/07/20 Furosemide [Lasix] 20 mg PO DAILY #10 tab 07/11/20 LORazepam [Ativan] 1 mg PO BID 3 Days #6 tab 08/14/20 Allergies Allergy/AdvReac Type Severity Reaction Status Date / Time No Known Allergies Allergy Verified 08/14/20 22:41 Review of Systems ROS Statement: Those systems with pertinent positive or pertinent negative responses have been documented in the HPI. ROS Other: All systems not noted in ROS Statement are negative. Past Medical History Past Medical History: Atrial Fibrillation, Heart Failure Additional Past Medical History / Comment(s): Afib with RVR, pt had transposition of great arteries as an , hypomagnesemia, anemia. History of Any Multi-Drug Resistant Organisms: ESBL Date of last positivie culture/infection: 02/25/17 ESBL-Klebsiella MDRO Source:: Urine Past Surgical History: No Surgical Hx Reported Additional Past Surgical History / Comment(s): open heart surg for transposition of great arteries, CARDIOVERTED FOR A- FIB twice Past Anesthesia/Blood Transfusion Reactions: No Reported Reaction Past Psychological History: Anxiety, Depression Smoking Status: Former smoker Past Alcohol Use History: Abuse, Daily Past Drug Use History: None Reported - Past Family History Mother Family Medical History: No Reported History Additional Family Medical History / Comment(s): Mother is healthy Father Family Medical History: No Reported History Additional Family Medical History / Comment(s): Father is healthy General Exam Limitations: no limitations General appearance: alert, in no apparent distress, other (This is a well- developed, well-nourished adult female patient in no acute distress. Vital signs upon presentation are temperature 97.7F, pulse 109, respirations 24, blood pressure 111/74, pulse ox 97% on room air.) Eye exam: Present: normal appearance, PERRL, EOMI. Absent: scleral icterus, conjunctival injection, periorbital swelling ENT exam: Present: normal exam, normal oropharynx, mucous membranes moist Respiratory exam: Present: normal lung sounds bilaterally. Absent: respiratory distress, wheezes, rales, rhonchi, stridor Cardiovascular Exam: Present: normal rhythm, tachycardia, normal heart sounds. Absent: systolic murmur, diastolic murmur, rubs, gallop, clicks GI/Abdominal exam: Present: soft, normal bowel sounds. Absent: distended, tenderness, guarding, rebound, rigid Neurological exam: Present: alert, oriented X3, CN II-XII intact Psychiatric exam: Present: normal affect, normal mood Skin exam: Present: warm, dry, intact, normal color. Absent: rash Course Vital Signs 08/14/20 22:36 Temperature 97.7 F Pulse Rate 109 H Respiratory 24 Rate Blood Pressure 111/74 O2 Sat by Pulse 97 Oximetry Medical Decision Making - Medical Decision Making 34-year-old female patient with extensive past medical history presents to the emergency department today for complaints of anxiety. Patient states his been feeling very nervous and anxious since her grandmother on Wednesday. States she is out of her anxiety medication. She also reports not taking her home medications since Wednesday as she is staying with her mother and doesn't have her medications with her. She denies any other concerning symptoms. Physical examination is unremarkable. She'll be given doses of her home medication and antianxiety medication here. She'll be discharged. The primary care physician for recheck in 1-2 days. Return parameters were discussed in detail. She verbalizes understanding and agrees with this plan. Disposition Clinical Impression: Anxiety Disposition: HOME SELF-CARE Condition: Good Instructions (If sedation given, give patient instructions): Generalized Anxiety Disorder (ED) Additional Instructions: Follow up with your primary care physician for recheck in 1-2 days. Take your home medications as soon as possible. Return to the emergency department for any new, worsening, or concerning symptoms. Prescriptions: LORazepam [Ativan] 1 mg PO BID 3 Days #6 tab Is patient prescribed a controlled substance at d/c from ED?: No Referrals: Rodney Wilson MD [Primary Care Provider] - 1-2 days Time of Disposition: 23:06
[2020-08-14] MEDS ORDERED: ESCITALOPRAM 10 MG TAB PO STA (23:30)
[2020-08-14] MEDS ORDERED: METOPROLOL TARTRATE 50 MG TAB PO STA (23:30)
[2020-08-14] MEDS ORDERED: FUROSEMIDE 20 MG TAB PO STA (23:30)
[2020-08-14] MEDS ORDERED: WARFARIN 2 MG TAB PO STA (23:30)
[2020-08-14] MEDS ORDERED: DIGOXIN 125 MCG TAB PO STA (23:30)
== END 2020-08-14 23:40 | disposition home or self-care (01) ==
LOC: EC 22:35
DX: F41.9 Anxiety disorder, unspecified (principal); F32.9 Major depressive disorder, single episode, unspecified; I48.91 Unspecified atrial fibrillation; I50.9 Heart failure, unspecified; Z79.01 Long term (current) use of anticoagulants; Z79.899 Other long term (current) drug therapy; Z91.14 Patient's other noncompliance with medication regimen; Z87.891 Personal history of nicotine dependence
CPT/HCPCS: 99283